=== PATIENT | male | born 1980 | race Caucasian/White ===

== ENCOUNTER 2016-01-17 08:10 | Outpatient (RCR) | payer MEDICAID ==
--- OUTSIDE RECORDS SUMMARY | 2016-01-14 15:39 | XMS REPORT ---
Author Joi Ramos [facility] eClinicalWorks Address Unknown Phone Unavailable Care Team Providers Care Care Coordinator Name Role Phone Joi Muñiz CP Unavailable Allergies No Known Allergies Problems Problem Type Condition Code Onset Dates Condition Status Assessment Nicotine dependence, cigarettes, uncomplicated F17.210 Active Problem Nicotine dependence, cigarettes, uncomplicated F17.210 Active Problem Asymptomatic human immunodeficiency virus (HIV) infection status Z21 Active Problem Mild intermittent asthma without complication J45.20 Active Assessment Mild intermittent asthma without complication J45.20 Active Assessment Influenza vaccine needed Z23 Active Problem Influenza vaccine needed Z23 Inactive Assessment Asymptomatic human immunodeficiency virus (HIV) infection status Z21 Active Medications No Known Medications Procedures Procedure Coding System Code Date BASIC METABOLIC PANEL CPT-4 47067 Dec 24, 2015 TB TEST, CELL IMMUN MEASURE CPT-4 35208 Dec 24, 2015 CHYLMD TRACH, DNA, AMP PROBE CPT-4 00572 Dec 24, 2015 PHENOTYPE, DNA HIV W/CLT ADD CPT-4 21411 Dec 24, 2015 Venipuncture CPT-4 27396 Dec 24, 2015 BLOOD SEROLOGY, QUALITATIVE CPT-4 73978 Dec 24, 2015 GENOTYPE, DNA, HIV REVERSE T CPT-4 30626 Dec 24, 2015 N.GONORRHOEAE, DNA, AMP PROB CPT-4 24802 Dec 24, 2015 Office Visit, Est Pt., Level 4 CPT-4 00369 Dec 24, 2015 GENOTYPE DNA HIV REVERSE T CPT-4 44252 Dec 24, 2015 HIV-1, DNA, QUANT CPT-4 69174 Dec 24, 2015 FLU VAC NO PRSV 4 CHRISTEN 3 YRS+ CPT-4 66505 Dec 24, 2015 T CELL, ABSOLUTE COUNT/RATIO CPT-4 89171 Dec 24, 2015 IMMUNIZATION ADMIN CPT-4 54845 Dec 24, 2015 PHENOTYPE, INFECT AGENT DRUG CPT-4 15140 Dec 24, 2015 Vital Signs Date/Time: Dec 24, 2015 Temperature 98.5 F Weight 126.5 lbs Height 65.5 in Respiratory Rate 18 /min Cardiac Monitoring Heart Rate 76 /min Blood Pressure Diastolic 60 mm Hg Blood Pressure Systolic 102 mm Hg BMI 20.73 Index Results No Known Results Immunizations Vaccine Administration Date Influenza Split 3 yrs > (QUAD) Dec 24, 2015 Summary Purpose eClinicalWorks Submission
[~2016-01-17] VITALS: Ht 154.9 cm; Wt 56.7 kg
[2016-01-17] VITALS (9 sets, daily range): BP systolic 98–113; BP diastolic 51–64
[~2016-01-17 08:10] MED LIST: NS IV 500 ML 500 ML ONE
[2016-01-17] MEDS ORDERED: [UNRECOGNIZED DRUG - OTHER] PO (08:24)
[2016-01-17] MEDS ORDERED: TRAM50TA2 PO (08:24)
[2016-01-17] MEDS ORDERED: FERR-84 PO (08:24)
[2016-01-17] MEDS ORDERED: ACETAMINOPHEN 325 MG TABLET/CAPLET (TYLENOL) ONE (13:00)
[2016-01-17] MEDS ORDERED: ACETAMINOPHEN 325 MG TABLET/CAPLET (TYLENOL) PO ONE (13:15)
== END 2016-04-13 | disposition home or self-care (01) ==
LOC: SDC 08:10
PROVIDERS: ATTEND Internal Medicine
DX: D64.9 Anemia, unspecified (principal)
CPT/HCPCS: 36430; 86850; 86900; 86901; 86920

== ENCOUNTER 2016-05-25 05:41 | Outpatient (CLI) | payer BC ==
[~2016-05-25] VITALS: Ht 154.9 cm; Wt 56.7 kg
[~2016-05-25 05:41] MED LIST changes: +FERR-84 PO; -NS IV 500 ML 500 ML ONE; +TRAM50TA2 PO; +[UNRECOGNIZED DRUG - OTHER] PO
[2016-05-25] MEDS ORDERED: ASCO500T6 PO (12:23)
[2016-05-25] MEDS ORDERED: SCOP1PAT TD (12:23)
[2016-05-25] MEDS ORDERED: VITA1CAP16 PO (12:23)
[2016-05-25] MEDS ORDERED: MONT10TA24 PO (12:23)
[2016-05-25] MEDS ORDERED: RT-ALBUINH IH (12:23)
[2016-05-25] MEDS ORDERED: HYDR-3816 PO (12:23)
[2016-05-25] MEDS ORDERED: CROF125T PO (12:23)
[2016-05-25] MEDS ORDERED: TRAM-42 PO (12:23)
[2016-05-25] MEDS ORDERED: FERR325T5 PO (12:23)
[2016-05-25] MEDS ORDERED: HYDR-3923 PO (12:23)
[2016-05-25] MEDS ORDERED: [UNRECOGNIZED DRUG - CODE] PO (12:23)
[2016-05-25] MEDS ORDERED: LORA10TA7 PO (12:23)
[2016-05-25] MEDS ORDERED: METR500T21 PO (12:23)
[2016-05-25] MEDS ORDERED: ELVI1TAB3 PO (12:23)
[2016-05-25] MEDS ORDERED: MUPI15CR11 TP (12:37)
== END 2016-05-25 12:48 ==
LOC: PREOP 05:41
PROVIDERS: ATTEND Surgery
DX: Z01.818 Encounter for other preprocedural examination (principal); R19.7 Diarrhea, unspecified

== ENCOUNTER 2016-05-29 10:14 | Day surgery (SDC) | payer BC, MEDICAID ==
[~2016-05-29] VITALS: Ht 154.9 cm; Wt 56.7 kg
[~2016-05-29 10:14] MED LIST changes: +ASCO500T6 PO; +CROF125T PO; +ELVI1TAB3 PO; +FERR325T5 PO; +HYDR-3816 PO; +HYDR-3923 PO; +LORA10TA7 PO; +METR500T21 PO; +MONT10TA24 PO; +MUPI15CR11 TP; +RT-ALBUINH IH; +SCOP1PAT TD; +TRAM-42 PO; +VITA1CAP16 PO; +[UNRECOGNIZED DRUG - CODE] PO
[2016-05-29] MEDS ORDERED: NS IV 500 ML 500 ML ONE (10:38)
[2016-05-29] MEDS ORDERED: NS IV 500 ML 500 ML IV PRN (10:50)
--- NOTE | 2016-05-29 10:51 | Conscious Sedation/ASA ---
Conscious Sedation Pre-Proced Time Reviewed: 10:50 ASA Class: 2 Airway Mallampati Classification: ([place] appropriate class) I. II. III, IV Lungs Heart ASA score ASA 1: a normal healthy patient ASA 2: a patient with a mild systemic disease (mid diabetes, controlled hypertension, obesity ASA 3: a patient with a severe systemic disease that limits activity (angina , COPD, prior Myocardial infarction) ASA 4: a patient with an incapacitating disease that is a constant threat to life (CHF, renal failure) ASA 5: a moribund patient not expected to survive 24 hrs. (ruptured aneurysm) ASA 6: a declared brain patient whose organs are being harvested. For emergent operations, add the letter E after the classification Grade 2 Sedation Plan: Discussed options with patient/fam Note The patient is an appropriate candidate to undergo the planned procedure, sedation, and anesthesia. The patient immediately re-assessed prior to indication. RODDY STEWART MD May 29, 2016 10:51 am
--- NOTE | 2016-05-29 10:51 | Progress Note-Pre Operative ---
Pre-Operative Progress Note H&P Reviewed The H&P was reviewed, patient examined and no changes noted. Date H&P Reviewed: May 29, 2016 Time H&P Reviewed: 10:50 Pre-Operative Diagnosis: chronic diarrhea RODDY STEWART MD May 29, 2016 10:51 am
[2016-05-29] MEDS ORDERED: FLUMAZENIL (ROMAZICON) 0.1 MG/ML 5 ML VIAL INJ PRN (11:00)
[2016-05-29] MEDS ORDERED: NALOXONE 0.4 MG/ML 1 ML (NARCAN) VIAL IVP PRN (11:00)
[2016-05-29] MEDS ORDERED: HURRICAINE EXT TUBE (BENZOCAINE) XX PRN (11:00)
[2016-05-29 11:08] VITALS: BP 130/101
[2016-05-29] MEDS ORDERED: MIDAZOLAM 2 MG/2 ML (VERSED) VIAL ONE ×7 (11:21→11:22)
[2016-05-29] MEDS ORDERED: fentaNYL INJECTION 100 MCG/2 ML AMP ONE ×2 (11:21)
[2016-05-29] MEDS ORDERED: HURRICAINE EXT TUBE (BENZOCAINE) ONE (11:22)
[2016-05-29] MEDS: fentaNYL INJECTION 100 MCG/2 ML AMP IVP PRN ×4 (11:31→11:44)
[2016-05-29] MEDS: MIDAZOLAM 2 MG/2 ML (VERSED) VIAL IVP PRN ×7 (11:33→11:45)
--- NOTE | 2016-05-29 12:16 | Progress Note-Post Operative ---
Post-Operative Progess Note Pre-Operative Diagnosis chronic diarrhea Post-Operative Diagnosis irregular and raised mucosa of the distal anal canal. Serpiginous ulcers along the rectum and the whole sigmoid colon with slough colon proximal to sigmoid normal Post-Op Procedure Note Date of Procedure: May 29, 2016 Name of Procedure: colonoscopy to cecum Biopsies of anal canal, rectal mucosa and sigmoid mucosa Anesthesia Type sedation Specimen(s) collected anal rectal and sigmoid mucosa RODDY STEWART MD May 29, 2016 12:16 pm
--- NOTE | 2016-05-29 12:17 | Discharge Inst-Simple/Standard ---
Discharge Inst-Standard Discharge Medications New, Converted or Re-Newed RX: Other Patient Instructions/Follow Up Plan of Care/Instructions/FU: follow-up with Dr. Krystyna Yo M.D. Activity as Tolerated: Yes Discharge Diet: No Restrictions RODDY STEWART MD May 29, 2016 12:17 pm
[2016-05-29 12:35] VITALS: BP 89/56
--- NOTE | 2016-05-29 12:38 | PROCEDURE REPORT ---
PROCEDURE PHYSICIAN: RODDY STEWART DATE OF PROCEDURE: 05/29/2016 PROCEDURE: 1. Colonoscopy to cecum. 2. Biopsy of lesions in the anal canal, rectum and the sigmoid colon. SURGEON: Sathish INDICATION FOR THE PROCEDURE: This gentleman, who is HIV positive, reported diarrhea over the last several months. Therefore, colonoscopy was felt to be reasonable. Informed consent was obtained after reviewing the procedure in detail. DESCRIPTION OF PROCEDURE: He was placed in left lateral decubitus position and his vital signs were monitored. Conscious sedation was achieved using Versed and fentanyl. Examination of the perianal area revealed a draining sinus over the right gluteal region and large anal skin tags. Digital examination showed a slightly lax sphincter. The colonoscope was then introduced into the rectum and advanced all the way up to the cecum. It was then withdrawn slowly and the mucosa examined in a systematic fashion. FINDINGS: 1. Irregular and raised mucosa of the distal anal canal. Photodocumentation and multiple biopsies were obtained. 2. Ulcerated mucosa of the rectum extending up to the proximal sigmoid colon in a serpiginous fashion, with slough along the base of the ulcers. There was an abrupt transition at the proximal sigmoid colon. Biopsies of the rectal mucosa and the sigmoid mucosa were obtained separately. The rest of the colon was normal. He tolerated the procedure well and was taken back to the nursing area in a stable condition. IMPRESSION: 1. HIV-positive patient with lesions in the rectum, anal canal and the sigmoid colon. 2. Biopsies pending. Job ID: [id number] Dictated Date: 05/29/2016 12:14:03 Glue Plant Operator Date: 05/29/2016 12:31:39 / oscar ALBERTO
[2016-05-29 13:05] VITALS: BP 110/68
[2016-05-29 14:00] VITALS: BP 110/68
--- OUTSIDE RECORDS SUMMARY | 2016-06-13 17:53 | XMS REPORT ---
Author Joi Ramos [facility] eClinicalWorks Address Unknown Phone Unavailable Care Team Providers Care Chuck Splitter Name Role Phone Joi Muñiz CP Unavailable [...] System Code Date BASIC METABOLIC PANEL CPT-4 72439 Dec 24, 2015 TB TEST, CELL IMMUN MEASURE CPT-4 42350 Dec 24, 2015 CHYLMD TRACH, DNA, AMP PROBE CPT-4 49943 Dec 24, 2015 PHENOTYPE, DNA HIV W/CLT ADD CPT-4 70486 Dec 24, 2015 Venipuncture CPT-4 19464 Dec 24, 2015 BLOOD SEROLOGY, QUALITATIVE CPT-4 57398 Dec 24, 2015 GENOTYPE, DNA, HIV REVERSE T CPT-4 52554 Dec 24, 2015 N.GONORRHOEAE, DNA, AMP PROB CPT-4 52151 Dec 24, 2015 Office Visit, Est Pt., Level 4 CPT-4 90807 Dec 24, 2015 GENOTYPE DNA HIV REVERSE T CPT-4 63302 Dec 24, 2015 HIV-1, DNA, QUANT CPT-4 34714 Dec 24, 2015 FLU VAC NO PRSV 4 CHRISTEN 3 YRS+ CPT-4 25416 Dec 24, 2015 T CELL, ABSOLUTE COUNT/RATIO CPT-4 57704 Dec 24, 2015 IMMUNIZATION ADMIN CPT-4 48815 Dec 24, 2015 PHENOTYPE, INFECT AGENT DRUG CPT-4 89101 Dec 24, 2015 Vital Signs Date/Time: Dec [...]
--- OUTSIDE RECORDS SUMMARY | 2016-06-13 17:54 | XMS REPORT ---
Author Joi Ramos Organization eClinicalWorks Address Unknown Phone Unavailable Care Team Providers Care Orange Grower Name Role Phone Joi Muñiz CP Unavailable Allergies No Known Allergies Problems Problem Type Condition Code Onset Dates Condition Status Assessment Acute right ankle pain M25.571 Active Problem Influenza vaccine needed Z23 Inactive Assessment Nausea and vomiting, intractability of vomiting not specified, unspecified vomiting type R11.2 Active Problem Acute right ankle pain M25.571 Active Problem Iron deficiency anemia due to chronic blood loss D50.0 Active Problem Nausea and vomiting, intractability of vomiting not specified, unspecified vomiting type R11.2 Active Problem Nicotine dependence, cigarettes, uncomplicated F17.210 Active Problem Asymptomatic human immunodeficiency virus (HIV) infection status Z21 Active Problem Generalized abdominal pain R10.84 Active Problem Mild intermittent asthma without complication J45.20 Active Medications Medication Code System Code Instructions Start Date End Date Status Dosage Scopolamine [facility] [address]-92 1 MG/3DAYS Transdermal apply 1 every 72 hr Jan 29, 2016 1 patch to skin as needed PredniSONE [facility] [address]-16 10 MG Orally Once a day Jan 29, 2016 taper - 8,7,6,5,4,3,2,1 Results No Known Results Summary Purpose eClinicalWorks Submission
--- OUTSIDE RECORDS SUMMARY | 2016-06-13 17:54 | XMS REPORT ---
Author Author Joi Muñiz [facility] Address [address], [place] [id number] Care Team Providers Care Dance Hall Host/Hostess Name Role Phone Joi Muñiz Unavailable PROBLEMS Type Condition ICD9-CM Code [id number] Code Onset Dates Condition Status SNOMED Code Problem Asymptomatic human immunodeficiency virus (HIV) infection status Z21 Active 59349919 Assessment Chronic diarrhea K52.9 Apr, Active 636641008 Problem Pain in joint involving multiple sites M25.50 Active 60001553 Problem Chronic diarrhea K52.9 Active 713935899 Problem Nicotine dependence, cigarettes, uncomplicated F17.210 well- controlled 61772724 Problem Mild intermittent asthma without complication J45.20 well- controlled 726056240 Problem Abscess L02.91 Active 702938599 Problem Iron deficiency anemia due to chronic blood loss D50.0 Active 97919629 ALLERGIES Unknown Allergies SOCIAL HISTORY No smoking Hx information available PLAN OF CARE VITAL SIGNS MEDICATIONS Medication Instructions Dosage Frequency Start Date End Date Duration Status Genvoya 150 mg/150 mg/200/mg/10 mg Oral Once a day 1 tablet 24h Jan, 30 days Active Bactroban 2 % Externally Three times a day 1 application to affected area 8h Apr, 30 days Active Zofran 8 MG Orally three a day 1 tablet Apr, 10 days Active Ferrous Sulfate 325 (65 Fe) MG Orally three a day 1 tablet Jan, 30 day(s) Active Percocet 7.5-325 MG Orally every 6 hrs 1 tablet as needed 6h Apr, 15 days Active Tramadol HCl 50 MG Orally every 4-6 hrs 1 tablet as needed Jan, 10 days Active Mytesi 125 MG Orally Twice a day 1 tablet 12h Apr, 30 day(s) Active Scopolamine 1 MG/3DAYS Transdermal apply 1 every 72 hr 1 patch to skin as needed Jan, 30 day(s) Active Bactrim DS 800-160 MG Orally Twice a day 1 tablet 12h 10 Apr, 2016 21 days Active Vitamin C 500 MG Orally three a day 1 tablet Jan, 30 day(s) Active Flagyl 500 MG Orally every 8 hrs 1 tablet 8h 24 Apr, 2016 21 days Active RESULTS No Results PROCEDURES No Known procedures IMMUNIZATIONS No Known Immunizations
--- OUTSIDE RECORDS SUMMARY | 2016-06-13 17:54 | XMS REPORT ---
Author Author CAM [place] [facility] eClinicalWorks Address Unknown Phone Unavailable Care Team Providers Care Etcher Hand Name Role Phone CAM [place] Unavailable Allergies No Known Allergies Problems Problem Type Condition Code Onset Dates Condition Status Problem Mild intermittent asthma without complication J45.20 Active Problem Bipolar disorder, unspecified 296.80 Active Problem HIV (human immunodeficiency virus infection) Z21 Active Problem Need for prophylactic vaccination and inoculation, Influenza V04.81 Active Assessment Mild intermittent asthma without complication J45.20 Active Problem Asymptomatic human immunodeficiency virus (HIV) infection status V08 Active Problem PPV23 (PNEUMOVAX) DX V03.82 Active Medications No Known Medications Results No Known Results Summary Purpose eClinicalWorks Submission
--- OUTSIDE RECORDS SUMMARY | 2016-06-13 17:54 | XMS REPORT ---
Author Joi Ramos Organization eClinicalWorks Address Unknown Phone Unavailable Care Team Providers Care Rubber Ball Finisher Name Role Phone Joi Muñiz CP Unavailable Allergies No Known Allergies Problems Problem Type Condition Code Onset Dates Condition Status Problem Influenza vaccine needed Z23 Inactive Problem Acute right ankle pain M25.571 Active [...] intermittent asthma without complication J45.20 Active Medications No Known Medications Results No Known Results Summary Purpose eClinicalWorks Submission
--- OUTSIDE RECORDS SUMMARY | 2016-06-13 17:54 | XMS REPORT ---
Author Joi Ramos Organization eClinicalWorks Address Unknown Phone Unavailable Care Team Providers Care Change Control Manager Name Role Phone Joi Muñiz CP Unavailable Allergies No Known Allergies Problems Problem Type Condition Code Onset Dates Condition Status Problem Generalized abdominal pain R10.84 Active Problem Mild intermittent asthma without complication J45.20 Active Problem Iron deficiency anemia due to chronic blood loss D50.0 Active Problem Influenza vaccine needed Z23 Inactive Problem Nicotine dependence, cigarettes, uncomplicated F17.210 Active Problem Asymptomatic human immunodeficiency virus (HIV) infection status Z21 Active Medications No Known Medications Results No Known Results Summary Purpose eClinicalWorks Submission
--- OUTSIDE RECORDS SUMMARY | 2016-06-13 17:54 | XMS REPORT | Continuity of Care Document ---
Author Author [facility] Address Unknown Phone Unavailable Allergies Medications Problems Date Dx Coded Attending Type Code Diagnosis Diagnosed By 08/08/2012 296.80 BIPOLAR DISORDER NOS 08/08/2012 V08 reported positive HIV test, no symptoms of infection 08/08/2012 LINDSEY WEISS MD 296.80 BIPOLAR DISORDER NOS 08/08/2012 LINDSEY WEISS MD8 reported positive HIV test, no symptoms of infection 08/08/2012 LINDSEY WEISS MD 296.80 BIPOLAR DISORDER NOS 08/08/2012 LINDSEY WEISS MD8 reported positive HIV test, no symptoms of infection 08/08/2012 LINDSEY WEISS MD 296.80 BIPOLAR DISORDER NOS 08/08/2012 LINDSEY WEISS MD8 reported positive HIV test, no symptoms of infection 01/01/2013 LINDSEY WEISS MD V03.82 PPV23 (PNEUMOVAX) DX 01/01/2013 LINDSEY WEISS MD V04.81 FLU SHOT 01/01/2013 LINDSEY WEISS MD V03.82 PPV23 (PNEUMOVAX) DX 01/01/2013 LINDSEY WEISS MD V04.81 FLU SHOT Procedures Code Description [place] [address] ROUTINE VENIPUNCTURE 08/08/2012 42190 CMP 08/09/2012 7980069 GFR CALC (RESULT ONLY) 08/09/2012 5381949 COMPLETE BLOOD COUNT NO DIFF (CBC Result) 08/09/2012 11649 DIFFERENTIAL WBC COUNT (CBC DIFF RESULT) 08/09/2012 28521 CBC W/MANUAL DIF (order) 08/10/2012 49232 T CELL ABSOLUTE COUNT/RATIO 08/10/2012 64662 HIV-1 QUANT&REVRSE TRNSCRPJ 08/10/2012 91999 ROUTINE VENIPUNCTURE 10/09/2012 TCELLCD8 T-HELPER COUNT/RATIO CD-4 CD-8 10/16/2012 56032 ROUTINE VENIPUNCTURE 01/01/2013 64215 CMP 01/01/2013 13482 TSH 01/01/2013 20656 CBC W/MANUAL DIF (order) 01/01/2013 53718 HIV-1 DNA QUANT 01/01/2013 TCELLCD8 T-HELPER COUNT/RATIO CD-4 CD-8 01/01/2013 [id number] [facility] HIV SPEC FOR RML MOLECULAR 05/21/2013 42976 CMP 05/21/2013 53218 TSH 05/21/2013 66228 CBC W/MANUAL DIF (order) 05/21/2013 74432 HIV-1 DNA QUANT 05/21/2013 TCELLCD8 T-HELPER COUNT/RATIO CD-4 CD-8 05/21/2013 Results Encounters ACCT No. Visit Date/Time Discharge Status Pt. Type Provider Facility Loc./Unit Complaint [id number] 05/21/2013 14:17:00 05/21/2013 23: 59:59 CLS Outpatient LINDSEY WEISS MD [id number] 01/01/2013 14:14:00 01/01/2013 23: 59:59 CLS Outpatient LINDSEY WEISS MD [id number] 10/09/2012 12:54:00 10/09/2012 23: 59:59 CLS Outpatient LINDSEY WEISS MD [id number] 08/08/2012 09:06:00 Document Registration
--- OUTSIDE RECORDS SUMMARY | 2016-06-13 17:54 | XMS REPORT ---
Author Author Joi Muñiz [facility] Address [address], [place] [address] Care Team Providers Care Closing Specialist Name Role Phone Joi Muñiz Unavailable PROBLEMS Type Condition ICD9-CM Code JUG24-OR Code Onset Dates Condition Status SNOMED Code Assessment Acute hemorrhoid K64.9 Feb, Active 89179798 Problem Asymptomatic human immunodeficiency virus (HIV) infection status Z21 Active 85808423 Problem Influenza vaccine needed Z23 Inactive 359973442 Problem Nausea and vomiting, intractability of vomiting not specified, unspecified vomiting type R11.2 Active 19732085 Problem Acute right ankle pain M25.571 Active 93502042753693 Problem Mild intermittent asthma without complication J45.20 well- controlled 790294193 Problem Nicotine dependence, cigarettes, uncomplicated F17.210 well- controlled 51986809 Problem Iron deficiency anemia due to chronic blood loss D50.0 Active 03238383 Problem Generalized abdominal pain R10.84 Active 026151540 ALLERGIES Unknown Allergies SOCIAL HISTORY No smoking Hx information available PLAN OF CARE VITAL SIGNS MEDICATIONS Medication Instructions Dosage Frequency Start Date End Date Duration Status Vitamin C 500 MG Orally three a day 1 tablet Jan, 30 day(s) Active Ferrous Sulfate 325 (65 Fe) MG Orally three a day 1 tablet Jan, 30 day(s) Active Genvoya 150 mg/150 mg/200/mg/10 mg Oral Once a day 1 tablet 24h Jan, 30 days Active Tramadol HCl 50 MG Orally every 4-6 hrs 1 tablet as needed Jan, 10 days Active Tramadol HCl 50 MG Orally every 6 hrs 2 tablet as needed 6h Feb, Feb, 7 days Active Anusol-HC 25 MG Rectal Twice a day 1 suppository 12h Feb, Mar, 10 days Active Scopolamine 1 MG/3DAYS Transdermal apply 1 every 72 hr 1 patch to skin as needed Jan, 30 day(s) Active PredniSONE 10 MG Orally Once a day taper - 8,7,6,5,4,3,2,1 24h Jan, 8 days Active RESULTS No Results PROCEDURES No Known procedures IMMUNIZATIONS No Known Immunizations
--- OUTSIDE RECORDS SUMMARY | 2016-06-13 17:54 | XMS REPORT ---
Author Author CAM [place] [facility] eClinicalWorks Address Unknown Phone Unavailable Care Team Providers Care Business Law Teacher Name Role Phone CAM [place] Unavailable Allergies No Known Allergies Problems Problem Type Condition Code Onset Dates Condition Status Problem Mild intermittent asthma without complication J45.20 Active Problem Bipolar disorder, unspecified 296.80 Active Problem HIV (human immunodeficiency virus infection) Z21 Active Problem Need for prophylactic vaccination and inoculation, Influenza V04.81 Active Problem Asymptomatic human immunodeficiency virus (HIV) infection status V08 Active Problem PPV23 (PNEUMOVAX) DX V03.82 Active Medications No Known Medications Results No Known Results Summary Purpose eClinicalWorks Submission
--- OUTSIDE RECORDS SUMMARY | 2016-06-13 17:54 | XMS REPORT ---
Author Author CAM [place] [facility] eClinicalWorks Address Unknown Phone Unavailable Care Team Providers Care Candle Wrapper Name Role Phone CAM [place] Unavailable Allergies [...]
--- OUTSIDE RECORDS SUMMARY | 2016-06-13 17:54 | XMS REPORT ---
Author Author BENEDICTO WEBER [facility] eClinicalWorks Address Unknown Phone Unavailable Care Team Providers Care Road Grader Operator Name Role Phone BENEDICTO WEBER Unavailable Allergies, Adverse Reactions, Alerts Substance Reaction Event Type Penicillin unknown Drug Allergy Problems Problem Type Condition Code Onset Dates Condition Status Assessment HIV (human immunodeficiency virus infection) Z21 Active Assessment Fatigue, unspecified type R53.83 Active Assessment Diarrhea, unspecified type R19.7 Active Assessment Hemoptysis R04.2 Active Problem Mild intermittent asthma without complication J45.20 Active Problem Bipolar disorder, unspecified 296.80 Active Problem HIV (human immunodeficiency virus infection) Z21 Active Problem Need for prophylactic vaccination and inoculation, Influenza V04.81 Active Assessment Cough R05 Active Problem Asymptomatic human immunodeficiency virus (HIV) infection status V08 Active Problem PPV23 (PNEUMOVAX) DX V03.82 Active Medications Medication Code System Code Instructions Start Date End Date Status Dosage Singulair [facility] [address]-68 10 mg Orally Once a day Nov 29, 2015 1 tablet in the evening Proventil HFA [facility] [address]-42 108 (90 Base) MCG/ACT Inhalation every 4 hrs Nov 29, 2015 2 puffs as needed Imodium A-D [facility] [address]-40 2 MG Orally then 1 after each loose stool for a total of 8 a day Nov 29, 2015 Dec 29, 2015 2 tablet with first lose stool Zithromax Z-Adán [facility] [address]-74 250 MG Orally Once a day Nov 29, 2015 Dec 04, 2015 2 tablets on the first day, then 1 tablet daily for 4 days Loratadine [facility] [address]-44 10 mg Orally Once a day in the AM Nov 29, 2015 Dec 29, 2015 1 tablet Procedures Procedure Coding System Code Date COMPLETE CBC W/AUTO DIFF WBC CPT-4 59259 Nov 29, 2015 COMPREHEN METABOLIC PANEL CPT-4 95463 Nov 29, 2015 CHEST X-RAY CPT-4 65233 Nov 29, 2015 VENIPUNCT, ROUTINE* CPT-4 70515 Nov 29, 2015 HIV-1 AG W/HIV-1 & HIV-2 AB CPT-4 88733 Nov 29, 2015 Office Visit, Est Pt., Level 3 CPT-4 25285 Nov 29, 2015 Vital Signs Date/Time: Nov 29, 2015 Cardiac Monitoring Heart Rate 88 bpm Weight 123 lbs Height 64 in BMI 21.11 Index Blood Pressure Diastolic 80 mmHg Blood Pressure Systolic 112 mmHg Results Name Result Date Reference Range Unit Abnormality Flag CMP ----Calcium, Serum 9.2 03459395 8.7-10.2 mg/dL ----Carbon Dioxide, Total 20 [id number] 18-29 mmol/L ----ALT (SGPT) 8 85273706 0-44 IU/L ----Creatinine, Serum 0.72 [id number] 0.76-1.27 mg/dL L ----AST (SGOT) 15 [id number] 0-40 IU/L ----eGFR If NonAfricn Am 119 [id number] >59 mL/min/1.73 ----Alkaline Phosphatase, S 66 [id number] 39-117 IU/L ----eGFR If Africn Am 138 [id number] >59 mL/min/1.73 ----Bilirubin, Total 0.2 48191388 0.0-1.2 mg/dL ----BUN/Creatinine Ratio 17 [id number] 8-19 ----A/G Ratio 1.0 [id number] 1.1-2.5 L ----Sodium, Serum 136 [id number] 134-144 mmol/L ----Globulin, Total 3.9 34268053 1.5-4.5 g/dL ----Potassium, Serum 4.0 69368049 3.5-5.2 mmol/L ----Glucose, Serum 85 89417786 65-99 mg/dL ----Chloride, Serum 99 [id number] 97-108 mmol/L ----Albumin, Serum 3.8 74273197 3.5-5.5 g/dL ----BUN 12 [id number] 6-20 mg/dL ----Protein, Total, Serum 7.7 95172844 6.0-8.5 g/dL ROUTINE VENIPUNCTURE HIV ANTIGEN/ANTIBODY ----HIV 2 Ab Negative [id number] Negative ----Request Problem [facility] [id number] ----HIV 1 Ab Positive [id number] Negative A Summary Purpose eClinicalWorks Submission
--- OUTSIDE RECORDS SUMMARY | 2016-06-13 17:54 | XMS REPORT ---
Author Joi Ramos Organization eClinicalWorks Address Unknown Phone Unavailable Care Team Providers Care Surface Water Technician Name Role Phone Joi Muñiz CP Unavailable Allergies No Known Allergies Problems Problem Type Condition Code Onset Dates Condition Status Assessment Iron deficiency anemia due to chronic blood loss D50.0 Active Assessment Generalized abdominal pain R10.84 Active Problem Generalized abdominal pain R10.84 Active Problem Mild intermittent asthma without complication J45.20 Active Problem Iron deficiency anemia due to chronic blood loss D50.0 Active Problem Influenza vaccine needed Z23 Inactive Assessment Asymptomatic human immunodeficiency virus (HIV) infection status Z21 Active Problem Nicotine dependence, cigarettes, uncomplicated F17.210 Active Problem Asymptomatic human immunodeficiency virus (HIV) infection status Z21 Active Medications Medication Code System Code Instructions Start Date End Date Status Dosage Ferrous Sulfate [facility] [address]-40 325 (65 Fe) MG Orally three a day Jan 1 tablet Vitamin C [facility] [address]-90 500 MG Orally three a day Jan 12, 2016 1 tablet Genvoya [facility] [address]-17 150 mg/150 mg/200/mg/10 mg Oral Once a day Jan 1 tablet Tramadol HCl [facility] [address]-40 50 MG Orally every 4-6 hrs Jan 12, 2016 1 tablet as needed Results No Known Results Summary Purpose eClinicalWorks Submission
--- OUTSIDE RECORDS SUMMARY | 2016-06-13 17:54 | XMS REPORT ---
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 Phone Joi Muñiz Unavailable PROBLEMS Type Condition ICD9-CM Code [id number] Code Onset Dates Condition Status SNOMED Code Assessment Pain in joint involving multiple sites M25.50 28 Apr, 2016 Active 02438356 Problem Mild intermittent asthma without complication J45.20 well- controlled 037044089 Problem Asymptomatic human immunodeficiency virus (HIV) infection status Z21 Active 81789237 Problem Anxiety F41.9 Active 73118834 Problem Pain in joint involving multiple sites M25.50 Active 09157764 Problem Iron deficiency anemia due to chronic blood loss D50.0 Active 39990377 Problem Nicotine dependence, cigarettes, uncomplicated F17.210 well- controlled 67224751 Problem Chronic diarrhea K52.9 Active 974815346 Problem Abscess L02.91 Active 739085138 ALLERGIES Unknown Allergies SOCIAL HISTORY No smoking Hx information available PLAN OF CARE VITAL SIGNS MEDICATIONS Medication Instructions Dosage Frequency Start Date End Date Duration Status HydrOXYzine HCl 25 MG Orally three times a day 1 tablet as needed 8h May 10 days Active RESULTS No Results PROCEDURES No Known procedures IMMUNIZATIONS No Known Immunizations
--- OUTSIDE RECORDS SUMMARY | 2016-06-13 17:54 | XMS REPORT ---
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 Phone Joi Muñiz Unavailable PROBLEMS Type Condition ICD9-CM Code XSU25-LE Code Onset Dates Condition Status SNOMED Code Problem Chronic diarrhea K52.9 Active 940523207 Problem Abscess L02.91 Active 871692055 Problem Mild intermittent asthma without complication J45.20 well- controlled 599914780 Problem Asymptomatic human immunodeficiency virus (HIV) infection status Z21 Active 67538729 Problem Iron deficiency anemia due to chronic blood loss D50.0 Active 09101105 Problem Nicotine dependence, cigarettes, uncomplicated F17.210 well- controlled 92338240 ALLERGIES Unknown Allergies SOCIAL HISTORY No smoking Hx information available PLAN OF CARE VITAL SIGNS MEDICATIONS Unknown Medications RESULTS No Results PROCEDURES No Known procedures IMMUNIZATIONS No Known Immunizations
--- OUTSIDE RECORDS SUMMARY | 2016-06-13 17:54 | XMS REPORT ---
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 Phone [facility] [place] [facility] Unavailable Allergies, Adverse Reactions, Alerts Substance Reaction Event Type Penicillin unknown Drug Allergy Problems Problem Type Condition Code Onset Dates Condition Status Assessment Mild intermittent asthma without complication J45.20 Active Problem Mild intermittent asthma without complication J45.20 Active Problem Bipolar disorder, unspecified 296.80 Active Problem HIV (human immunodeficiency virus infection) Z21 Active Problem Need for prophylactic vaccination and inoculation, Influenza V04.81 Active Assessment HIV (human immunodeficiency virus infection) Z21 Active Problem Asymptomatic human immunodeficiency virus (HIV) infection status V08 Active Problem PPV23 (PNEUMOVAX) DX V03.82 Active Medications Medication Code System Code Instructions Start Date End Date Status Dosage Singulair [facility] [address]-21 10 mg Orally Once a day Nov 29, 2015 1 tablet in the evening ProAir HFA [facility] [address]-16 108 (90 Base) MCG/ACT Inhalation every 4 hrs Dec 10, 2015 2 puffs as needed Loratadine [facility] [address]-26 10 mg Orally Once a day in the AM Nov 29, 2015 Dec 29, [address] [facility] [address]-14 108 (90 Base) MCG/ACT Inhalation every 4 hrs Nov 29, 2015 2 puffs as needed Procedures Procedure Coding System Code Date Office Visit, Est Pt., Level 2 CPT-4 27349 Dec 10, 2015 Vital Signs Date/Time: Dec 10, 2015 Cardiac Monitoring Heart Rate 78 bpm Weight 123 lbs Height 64 in BMI 21.11 Index Blood Pressure Diastolic 78 mmHg Blood Pressure Systolic 116 mmHg Results No Known Results Summary Purpose eClinicalWorks Submission
== END 2016-05-29 14:00 | disposition home or self-care (01) ==
LOC: DELPENDDIS → ENDO 10:14
PROVIDERS: ATTEND Surgery
DX: K52.89 Other specified noninfective gastroenteritis and colitis (principal); Z21 Asymptomatic human immunodeficiency virus [HIV] infection status
CPT/HCPCS: 88305

== ENCOUNTER 2018-03-09 11:46 | Emergency (ER) | payer BC, MEDICAID | END 2018-03-09 13:25 | disposition home or self-care (01) | LOC: ER 11:46 ==

== ENCOUNTER 2019-07-04 11:42 | Emergency (ER) | payer BC, MEDICAID, OTHER ==
[~2019-07-04 11:42] MED LIST changes: +ASCO500T17 PO; -ASCO500T6 PO; +HYDR-34 PO; -HYDR-3816 PO; +METR-145 PO; -METR500T21 PO; -MONT10TA24 PO; +MONT10TA26 PO; -SCOP1PAT TD; +SCOP1PAT11 TD; -TRAM50TA2 PO; +TRM50T PO; +[UNRECOGNIZED DRUG - CODE] PO; -[UNRECOGNIZED DRUG - CODE] PO
--- OUTSIDE RECORDS SUMMARY | 2019-07-04 11:53 | XMS REPORT ---
Author Author [employer]. Organization [employer] Address [address] [address] Care Team Providers Care Relaster Name Role Phone Mary Kay, Joi Unavailable Mary Kay, Joi Unavailable Unavailable Mary Kay, Joi Unavailable Mary Kay, Joi Unavailable Mary Kay, Joi Unavailable Mary Kay, Joi Unavailable [place] Unavailable Unavailable [place] Unavailable Mary Kay, Joi Unavailable Mary Kay, Joi Unavailable Mary Kay, Joi Unavailable Mary Kay, Joi Unavailable Mary Kay, Joi Unavailable Mary Kay, Joi Unavailable Mary Kay, Joi Unavailable Mary Kay, Joi Unavailable Mary Kay, Joi Unavailable Mary Kay, Joi Unavailable Alexandria, Araseli Unavailable Alexandria, Araseli Unavailable Bryan, Araseli Unavailable Bryan, Araseli Unavailable Bryan, Araseli Unavailable Bryan, Araseli Unavailable Bryan, Araseli Unavailable Alexandria, Araseli Unavailable Bryan, Araseli Unavailable Alexandria, Araseli Unavailable Bryan, Araseli Unavailable Alexandria, Araseli Unavailable Bryan, Araseli Unavailable Alexandria, Araseli Unavailable Bryan, Araseli Unavailable CAM [place] Unavailable Bryan, Araseli Unavailable Bryan, Araseli Unavailable Alexandria, Araseli Unavailable Bryan, Araseli Unavailable Rodriguez, Shana Unavailable Bryan, Araseli Unavailable Alexandria, Araseli Unavailable Bryan, Araseli Unavailable Bryan, Araseil Unavailable Bryan, Araseli Unavailable Alexandria, Araseli Unavailable Bryan, Araseli Unavailable Bryan, Araseli Unavailable Bryan, Araseli Unavailable Alexandria, Araseli Unavailable Alexandria, Araseli Unavailable Alexandria, Araseli Unavailable Alexandria, Araseli Unavailable CAM [place] Unavailable Li, Shana Unavailable Li, Shana Unavailable Li, Shana Unavailable Li, Shana Unavailable Li, Shana Unavailable RODDY STEWART MD Unavailable Unavailable Li, Shana Unavailable Li, Shana Unavailable Li, Shana Unavailable Li, Shana Unavailable Li, Shana Unavailable Li, Shana Unavailable Li, Shana Unavailable CAM [place] Unavailable [place] Unavailable [place] Unavailable MITCHELL, FRANKI Unavailable Li, Shana Unavailable [place] Unavailable [place] Unavailable MITCHELL, FRANKI Unavailable MITCHELL, FRANKI Unavailable Li, Shana Unavailable ANDREYJUNIOR Eliana Unavailable Li, Shana Unavailable Migration, Doctor Unavailable Unavailable Bryan, Araseli Unavailable Li, Shana Unavailable Li, Shana Unavailable [place] MD Unavailable Unavailable Li, Shana Unavailable Alexandria, Araseli Unavailable Bryan, Araseli Unavailable Bryan, Araseli Unavailable Migration, Doctor Unavailable Unavailable Bryan, Araseli Unavailable Bryan, Araseli Unavailable Alexandria, Araseli Unavailable Alexandria, Araseli Unavailable Migration, Doctor Unavailable Unavailable LUIS ANTONIO HEIN Unavailable Alexandria, Araseli Unavailable Li, Shana Unavailable Alexandria, Araseli Unavailable Li, Shana Unavailable Li, Shana Unavailable Li, Shana Unavailable Shana Rodriguez Unavailable Unavailable None, None Unavailable Unavailable Li, Shana Unavailable Alexandria, Araseli Unavailable Veronika Brunner Unavailable Li, Shana Unavailable Li, Shana Unavailable Bryan, Araseli Unavailable Li, Shana Unavailable Li, Shana Unavailable Li, Shana Unavailable Veronika Brunner Unavailable Li, Shana Unavailable Bryan, Araseli Unavailable Alexandria, Araseli Unavailable Li, Shana Unavailable Li, Shana Unavailable Unavailable Unavailable Bryan, Araseli Unavailable Li, Shana Unavailable Bryan, Araseli Unavailable Li, Shana Unavailable Li, Shana Unavailable Li, Shana Unavailable Bryan, Araseli Unavailable Li, Shana Unavailable Guillermo, Shana Unavailable LINDSEY ALVAREZ Unavailable LINDSEY ALVAREZ Unavailable Li, Shana Unavailable Guillermo, Shana Unavailable Guillermo, Shana Unavailable LINDSEY ALVAREZ Unavailable Guillermo, Shana Unavailable Guillermo, Shana Unavailable Guillermo, Shana Unavailable Allergies Normalized Allergy Reported Date of Reaction(s) Care Provider Facility Allergy Type classification allergen Allergy Onset Drug Allergy Benzodiazepine ALPRAZolam 05-25-2016 - abd CAM agrawal Not Available (18 sources.) s Translations: MD Soha (00 000) Translations: [ Alprazolam] [ Allergy to Substance] DA (4 Unclassified No Known Drug 01-17-2016 - no information [place] Not Available sources.) Allergies MD (89319) Medications Current Medications Medication Ingredient Drug Dose Dates Status Sig Sig Care Class(es) (Normalized) (Original) Provid er no Biktarvy 50 no 1 mg 04-19-19 Active take 1 Biktarvy 50 no information MG/200 information 19 tablet by MG/200 MG/2 5 name (3 MG/25 MG mouth once MG Orally (no sources.) daily Once daily 1 phone) tablet 24h Apr, 30 days Active 1 mg 04-19-2018 Active take 1 Biktarvy no name tablet 50 (no by MG/200 phone) mouth MG/25 MG once Orally daily Once daily 1 tablet 24h Apr, 30 days Active efavirenz efavirenz / Human 05-14-19 Active take 1 Atripla no 600 mg / emtricitabi Immunodefic 14 tablet by 600-200-300 name emtricitabi ne / iency Virus mouth once mg take 1 (no ne 200 mg / tenofovir Nucleoside daily tablet by phone) tenofovir disoproxil Analog oral route disoproxil Translation Reverse once daily fumarate s: [ Transcripta on an empty 300 mg oral Atripla se stomach 11 tablet (1 600-200-300 Inhibitor, May, 2013 source.) mg] Human Active Immunodefic iency Virus 1 Non-Nucleos roslyn Analog Reverse Transcripta se Inhibitor Completed/Discontinued Medications Medication Ingredient Drug Dose Dates Status Sig Sig Care Class(es) (Normalized) (Original) Provid er acetaminoph Acetaminoph Opioid Complete take 1 Acetaminophe (no en 325 mg / en / Agonist d tablet by n/Hydrocodon phone) HYDROcodone HYDROcodone mouth every e Bitart bitartrate six hours as (Lortab 7.5 7.5 mg oral needed for Mg Tablet) 1 tablet (1 pain, then Each Tablet source.) take 1 1 Each ORAL tablet by Every 6 mouth as Hours as needed for needed for pain Pain no Albuterol no 1 Complete take 1 Albuterol (no information Sulfate information puff(s d puff(s) by Sulfate phone) (1 source.) (Proventil ) inhalation (Proventil Hfa) 6.7 Gm every six Hfa) 6.7 Gm Hfa.aer.ad hours as Hfa.aer.ad 2 needed Puff RESPIRATORY (INHALATION) Every 6 Hours as needed for Shortness Of Breath ascorbic Ascorbic Vitamin C 500 mg Complete take 1 Ascorbic (no acid 500 mg Acid d tablet by Acid phone) oral tablet mouth three (Vitamin C) (1 source.) times daily 500 Mg Tablet 500 Mg ORAL Three Times A Day no Genavue , 1 no 01-21-20 Complete take 1 Genavue , 1 D avid information Tab Oral information 16 - d tablet by Tab Javierleón Fitzgerald (1 source.) 05-26-19 mouth once Daily Huerte 17 daily 01/21/16 r (no Discontinued phone) glucosamine Glucosamine no 1000 Complete take 1 Glucosamine (no 1000 mg information mg d tablet by Sulfate 2KCL p prince) oral tablet mouth twice (Glucosamine (1 source.) daily, then Sulfate) take 1 1,000 Mg tablet by Tablet 1,000 mouth Mg ORAL Twice A Day hydrALAZINE hydrALAZINE Arteriolar 25 mg Complete take 1 Hydrala zine (no hydrochlori Vasodilator d tablet by Hcl 25 Mg phone) de 25 mg mouth three Tablet 25 Mg oral tablet times daily ORAL Three (1 source.) as needed Times A Day for anxiety as needed for Anxiety metroNIDAZO metroNIDAZO Nitroimidaz 500 mg Complete take 1 Metro nidazol (no LE 500 mg LE ole d tablet by e 500 Mg phone) oral tablet Antimicrobi mouth three Tablet 500 (1 source.) al times daily Mg ORAL Three Times A Day no Vitamin B no Complete take 1 Vitamin B (no information Complex & information d capsule by Complex & phone) (1 source.) Vit C No.3 mouth twice Vit C No.3 (B Complex daily, then (B Complex With take 1 With Vitamin Vitamin C) capsule by C) 1 Each 1 Each mouth Capsule 1 Capsule Each ORAL Twice A Day Problems Active Problems Problem Normalized Date of Normalized Normalized Provider Fac ility Classification Problem(s) Problem Problem Problem Sta tus Onset/Resoluti Duration on Allergic Allergy status Episodic Active SHILPA BERNOT Not Available reactions (6 to penicillin (61756) sources.) Translations: [ ALLERGY STATUS TO OTH DRUG/MEDS/BIOL SUB] Deficiency and Anemia, Episodic Active [place] Not Available other anemia unspecified , (97071) (10 sources.) Unclassified Anorexia Episodic Active Shana cohen of (20 sources.) Translations: [id number] [place] [employer] [ - Loss of of Medicine appetite MPA (98189) R63.0, - Loss of appetite R63.0] Chronic Chronic Chronic Active SHILPA BERNOT Not Avail able obstructive obstructive (38605) pulmonary pulmonary disease and disease, bronchiectasis unspecified (3 sources.) Unclassified Chronic pain Chronic Active Shana Zunigaales Un iversity of (20 sources.) Translations: [id number] [place] [address] [ Other of Medicine chronic pain, [facility] (07649) Other chronic pain] Residual Chronic pain [facility] codes; Translations: [id number] [place] [address] unclassified [ Other of Medicine (20 sources.) chronic pain] [facility] (10078) 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 [id number] [place] [address] al disorders Translations: of Medicine (20 sources.) [ - 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, - Functional diarrhea K59.1] Other lower Hiccough Episodic Active [facility] ity of respiratory Translations: [id number] [place] [address] disease (20 [ - Hiccups of Medicine sources.) R06.6, - MPA (93140) Intractable hiccups R06.6, - Intractable hiccups R06.6, - Hiccups R06.6] Other senior living Episodic Active SHILPA BERNMARISA Not Avai lable aftercare (3 (current) use (29840) sources.) of inhaled steroids Gastrointestin Melena Episodic Active [facility] y al hemorrhage Translations: [facility] (14 sources.) [ - Melena of [facility] K92.1] [place] (79265) Substance-rela Nicotine Chronic Active [facility] ersity of stephanie disorders dependence, [id number] [place] [address] (20 sources.) cigarettes, of Medicine uncomplicated [facility] (04063) Translations: [ - Nicotine dependence, cigarettes, uncomplicated F17.210, - Nicotine dependence, cigarettes, uncomplicated F17.210] Other Pain in left Episodic Active SHILPA BERNOT Not A vailable non-traumatic knee (74052) joint disorders (3 sources.) Other Pain in right Episodic Active [facility] ersity of non-traumatic ankle and [id number] [place] [address] joint joints of of Medicine disorders (20 right foot MPA (55351) sources.) Translations: [ - Acute right ankle pain M25.571, - Acute right ankle pain M25.571] Other Pain in [facility]odic [facility] non-traumatic unspecified [id number] [place] [address] joint joint of Medicine disorders (20 Translations: [facility] (86025) sources.) [ - Pain in joint involving multiple sites M25.50, - Pain in joint involving multiple sites M25.50] Other Personal Episodic Active SHILPASALENA DESOUZA Not Avail able gastrointestin history of (13771) al disorders other diseases (3 sources.) of the digestive system Sprains and Sprain of Episodic Active SHILPA JINOT Not Av ailable strains (3 unspecified (88596) sources.) site of left knee, initial encounter Past or Other Problems Problem Normalized Date of Normalized Normalized Provider Fac ility Classification Problem(s) Problem Problem Problem Sta tus Onset/Resoluti Duration on External cause Fall (on) no information no information SHILPA B ERNOT Not Available codes: Fall (3 (from) (01137) sources.) unspecified stairs and steps, initial encounter Noninfectious Other no information no information RODDY RIVERA Not Available gastroenteriti MD martita ([id number]) s (7 sources.) noninfective gastroenteriti s and colitis External cause Overexertion no information no information TRAVI S BERNOT Not Available codes: from prolonged (58416) Natural/enviro static or nment (3 awkward sources.) postures, initial encounter Procedures Procedure Normalized Procedure Procedure Result Performer Facility Date 05-21-2013 Assay of thyroid no information no name (no phone) [facility] stimulating hormone [facility] ([id number]) 04-11-2019 Billed by outside no information no name (no phone) [facility] (01819) 05-21-2013 Blood count manual no information no name (no phone ) [facility] cell count each [facility] (88514) 05-21-2013 Blood count smear no information no name (no phone) [facility] mcrscp w/mnl difrntl [facility] wbc count [place] (58740) 05-17-2018 Blood occult fecal hgb no information no name (no p prince) [facility] deter ia qual feces [facility] 1-3 [place] (13872) 04-11-2019 Comprehensive no information no name (no phone) [facility] (48176) 01-10-2019 Comprehensive no information no name (no phone) [facility] (87976) 09-13-2018 Comprehensive no information no name (no phone) Un [facility] metabolic [facility] (54142) 02-08-2018 Comprehensive no information no name (no phone) Un [facility] metabolic panel [facility] (05526) 11-30-2017 Comprehensive no information no name (no phone) Un [facility] metabolic [facility] (90467) 09-21-2017 Comprehensive no information no name (no phone) Un [facility] metabolic [facility] (66461) 05-21-2013 Comprehensive no information no name (no phone) [facility] (77931) 09-13-2018 Hemoglobin no information no name (no phone) [facility] glycosylated a1c [facility] (16492) 04-11-2019 Iadna hiv-1 quant & no information no name (no phon e) [facility] 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 [facility] (74310) 01-10-2019 Iadna hiv-1 quant & no information no name (no phon e) [facility] 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 [facility] (35224) 09-13-2018 Iadna hiv-1 quant & no information no name (no phon e) [facility] 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 [facility] (94283) 02-08-2018 Iadna hiv-1 quant & no information no name (no phon e) [facility] 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 [facility] (64276) 11-30-2017 Iadna hiv-1 quant & no information no name (no phon e) [facility] 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 [facility] (61914) 09-21-2017 Iadna hiv-1 quant & no information no name (no phon e) [facility] 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 [facility] (85934) 05-21-2013 Iadna hiv-1 quant & no information no name (no phon e) [facility] 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 [facility] (09589) 04-11-2019 Syphilis test no information no name (no phone) Un [facility] non-treponemal [facility] MPA antibody qual (35964) 01-10-2019 Syphilis test no information no name (no phone) [facility] non-treponemal [facility] MPA antibody qual (00307) 09-13-2018 Syphilis test no information no name (no phone) [facility] non-treponemal [facility] MPA antibody qual (82042) 02-08-2018 Syphilis test no information no name (no phone) [facility] non-treponemal [facility] MPA antibody qual (91040) 09-21-2017 Syphilis test no information no name (no phone) [facility] MPA antibody qual (66340) 04-11-2019 T cells absolute no information no name (no phone) [facility] cd4&cd8 count ratio [facility] (49733) 01-10-2019 T cells absolute no information no name (no phone) [facility] cd4&cd8 count ratio [facility] (97978) 09-13-2018 T cells absolute no information no name (no phone) [facility] cd4&cd8 count ratio [facility] MPA (63927) 02-08-2018 T cells absolute no information no name (no phone) [facility] cd4&cd8 count ratio [facility] MPA (16618) 11-30-2017 T cells absolute no information no name (no phone) [facility] cd4&cd8 count ratio [facility] MPA (17971) 09-21-2017 T cells absolute no information no name (no phone) [facility] cd4&cd8 count ratio [facility] (68833) 03-09-2018 X-ray of left knee no information SHILPA DESOUZA As cension [facility] (68294) Immunizations Normalized Immunization Date Notes Care Provider Facili ty Immunization influenza, 01-10-2019 - no information Araseli Adams [facility] injectable, 01-10-2019 [id number] [facility] [employer] ine quadrivalent, [facility] (60536) preservative free influenza, 11-30-2017 - no information Shana Li [facility] injectable, 11-30-2017 [id number] [facility] [employer] in[facility] quadrivalent, [facility] (60748) preservative free vaccine no information JUNIOR BALDERAS [address] Translations: [ [facility] vaccine] (49817) no information 01-10-2019 no information Araseli Adams [facility] [id number] [facility] (58123) no information 11-30-2017 no information Shana Li [facility] [id number] [place] [address] (20310) Results Test Name Value Interpretation Reference Range Date Time Fa cility (Normalized) (Normalized) (Medline Reference) opioid/opiate agreement (annual) on null NEGATED: no information (no code) [facility] of Laboratory Medicine MPA studies (set) (18290) No panel information on 2019-04-11 Albumin 4.7 g/dL (no code) 3.4 - 5.4 g/dL University [Mass/Vol] [facility] (37481) Albumin/Globulin 2.0 {ratio} (no code) 1 - 2.5 {ratio} Univ ersity of [Mass ratio] [facility] (70816) ALP [Catalytic 55 U/L (no code) 44 - 147 U/L Universit y of activity/Vol] [facility] ICT (16113) ALT [Catalytic 14 U/L (no code) 4 - 40 U/L University of activity/Vol] [facility] ICT (27133) AST [Catalytic 20 U/L (no code) 10 - 34 U/L University of activity/Vol] [facility] ICT (07353) Basophils (Bld) 0.1 10*3/uL (no code) 0 - 0.3 10*3/uL Unive rsity of [#/Vol] [facility] (36749) Basophils/100 1 % (no code) 0.5 - 1 % University o f WBC (Bld) [facility] (07594) Bilirubin 0.4 mg/dL (no code) 0.1 - 1.2 mg/dL Universit y of [Mass/Vol] [facility] ICT (23082) Calcium 9.5 mg/dL (no code) 8.5 - 10.2 mg/dL Universi ty of [Mass/Vol] [facility] ICT (68403) CD3+CD4+ (T4 326 (L) University of helper) cells [facility] of (Bld) [#/Vol] Medicine ICT (87417) CD3+CD4+ (T4 20.4 % (L) 35 - 66 % University of helper) [place] [employer] of cells/100 cells Medicine ICT (Bld) (10317) CD3+CD4+ (T4 0.48 % (L) 0.9 - 3.7 % University o f helper) [facility] of cells/CD3+CD8+ Medicine ICT (T8 suppressor (82191) cells) cells (Bld) [# ratio] CD3+CD8+ (T8 674 /uL (no code) 190 - 832 /uL University of suppressor [place] [employer] of cells) cells Medicine ICT (Bld) [#/Vol] (95368) CD3+CD8+ (T8 42.1 % (H) 9 - 37 % University of suppressor [place] [employer] of cells) cells/100 Medicine ICT cells (Bld) (61282) Chloride 102 mmol/L (no code) 95 - 106 mmol/L Universit y of [Moles/Vol] [facility] ICT (43198) CO2 [Moles/Vol] 25 mmol/L (no code) 23 - 29 mmol/L Univer [facility] of [facility] ICT (33097) Creatinine 1.03 mg/dL (no code) University of [Mass/Vol] [facility] ICT (65093) Eosinophils 0.2 10*3/uL (no code) 0.05 - 0.5 University of (Bld) [#/Vol] 10*3/uL [facility] ICT (08814) Eosinophils/100 4 % (no code) 1 - 4 % [facility] WBC (Bld) [facility] ICT (68223) Erythrocyte 14.9 % (no code) 11.6 - 14.6 % University of distribution [facility] of width (RBC) Medicine ICT [Ratio] (86871) Genetic analysis . (no code) University of narrative report [facility] of [employer] Medicine ICT (Bld/Tiss) (48657) GFR/1.73 sq M 105 (no code) University of predicted among [facility] of blacks CKD-EPI Medicine ICT (S/P/Bld) [Vol (15248) rate/Area] GFR/1.73 sq M 90 (no code) [facility] among [facility] non-blacks [facility] ICT CKD-EPI (35181) (S/P/Bld) [Vol rate/Area] Globulin (S) 2.3 g/dL (no code) 2 - 3.5 g/dL [facility] [Mass/Vol] [facility] ICT (67078) Glucose 77 mg/dL (no code) 60 - 125 mg/dL University [Mass/Vol] [facility] ICT (83936) Hematocrit (Bld) 38.8 % (no code) 36.1 - 50.3 % Univer sity of [Volume [facility] fraction] [facility] ICT (71243) Hemoglobin (Bld) 12.6 g/dL (L) 12.1 - 17.2 g/dL Uni versity of [Mass/Vol] [facility] ICT (90503) HIV 1 RNA 40 (no code) University of CK+probe [facility] [#/Vol] Medicine ICT (98755) HIV 1 RNA 1.602 (no code) University CK+probe [Log [facility] #/Vol] Medicine ICT (12222) HIV GenoSure TNP (no code) University of PRIme(SM) [facility] ICT (04199) Immature Cells INSIDE SALES DIRECTOR (no code) [facility] ICT (59668) Immature 0.0 10*3/uL (no code) 0 - 0.2 10*3/uL Universit y of granulocytes [facility] (Bld) [#/Vol] Medicine ICT (78798) Immature 0 % (no code) 0 - 0.5 % University of granulocytes/100 [place] [employer] WBC (Bld) Medicine ICT (81277) Lymphocytes 1.6 10*3/uL (no code) 0.9 - 2.9 University of (Bld) [#/Vol] 10*3/uL [facility] ICT (83757) Lymphocytes/100 25 % (no code) 20 - 40 % University of WBC (Bld) [facility] ICT (96286) MCH (RBC) 28.8 pg (no code) 27 - 31 pg University [Entitic mass] [facility] (42914) MCHC (RBC) 32.5 g/dL (no code) 32 - 36 g/dL University o f [Mass/Vol] [facility] (35798) MCV (RBC) 89 fL (no code) 80 - 100 fL University of [Entitic vol] [facility] (09922) Monocytes (Bld) 0.5 10*3/uL (no code) 0.3 - 0.9 University of [#/Vol] 10*3/uL [facility] (63371) Monocytes/100 8 % (no code) 2 - 8 % University o f WBC (Bld) [facility] (99210) Morphology León INSIDE SALES DIRECTOR (no code) [facility] (Bld) [Interp] [facility] (25181) Neutrophils 4.0 10*3/uL (no code) 1.7 - 7 10*3/uL Universit y of (Bld) [#/Vol] [facility] ICT (99137) Neutrophils/100 62 % (no code) 40 - 60 % University of WBC (Bld) [facility] (69735) Nucleated INSIDE SALES DIRECTOR (no code) University of RBC/100 WBC [facility] (Bld) [Ratio] Medicine [facility] (78669) Platelets (Bld) 262 10*3/uL (no code) 150 - 450 University of [#/Vol] 10*3/uL [facility] (18309) Potassium 4.7 mmol/L (no code) 3.7 - 5.2 mmol/L Universi ty of [Moles/Vol] [facility] ICT (23136) Protein 7.0 g/dL (no code) 6.4 - 8.3 g/dL [facility] [Mass/Vol] [facility] (84862) RBC (Bld) 4.37 10*6/uL (no code) 4.2 - 6.1 University of [#/Vol] 10*6/uL [facility] (43700) Reagin Ab RPR 1 {titer} (H) University of (S) [Titer] [facility] (63101) Reagin Ab RPR Ql Reactive (A) University of (S) [facility] (78180) Sodium 140 mmol/L (no code) 135 - 145 mmol/L Universi ty of [Moles/Vol] [facility] ICT (25418) T. pallidum Reactive (A) [facility] IgG+IgM IA Ql [facility] (S) [facility] (60433) Urea nitrogen 17 mg/dL (no code) 7 - 20 mg/dL University of [Mass/Vol] [facility] (74982) Urea 17 mg/mg (no code) 6 - 22 mg/mg University o f nitrogen/Creatin [facility] [Mass ratio] [facility] (85339) WBC (Bld) 6.4 10*3/uL (no code) 3.5 - 10.5 [place] of [#/Vol] 10*3/uL [facility] (75632) rapid plasma reagin (rpr), qualitative test 29719 on 2019-01-10 Reagin Ab RPR 1 {titer} (no code) 01-10-2019 University o f (S) [Titer] 07:00 [facility] (62532) Reagin Ab RPR Ql Reactive (no code) 01-10-2019 Universit y of (S) 07:000500 [facility] (72587) metabolic panel (14), comprehensive (cmp) 35360 on 2019-01-10 Albumin 5.4 g/dL (no code) 3.4 - 5.4 g/dL 01-10-2019 Univers ity of [Mass/Vol] 07:00 [facility] (19645) Albumin/Globulin 1.9 {ratio} (no code) 1 - 2.5 {ratio} 9 University of [Mass ratio] 07:000500 [facility] (29254) ALP [Catalytic 72 U/L (no code) 44 - 147 U/L 01-10-2019 Univ ersity of activity/Vol] 07:000 [facility] ICT (48484) ALT [Catalytic 19 U/L (no code) 4 - 40 U/L 01-10-2019 Univer sity of activity/Vol] 07: [facility] ICT (65838) AST [Catalytic 25 U/L (no code) 10 - 34 U/L 01-10-2019 Unive rsity of activity/Vol] 07: [facility] ICT (76368) Bilirubin 0.4 mg/dL (no code) 0.1 - 1.2 mg/dL 01-10-2019 Univer sity of [Mass/Vol] 07: [facility] ICT (82959) Calcium 10.8 mg/dL (no code) 8.5 - 10.2 mg/dL 01-10-2019 Univ ersity of [Mass/Vol] 07: [facility] ICT (57242) Chloride 99 mmol/L (no code) 95 - 106 mmol/L 01-10-2019 Univer sity of [Moles/Vol] 07: [facility] ICT (72496) CO2 [Moles/Vol] 22 mmol/L (no code) 23 - 29 mmol/L 01-10-2019 U niversity of : [facility] ICT (55329) Creatinine 1.14 mg/dL (no code) 01-10-2019 University of [Mass/Vol] 07: [facility] ICT (78394) GFR/1.73 sq M 92 (no code) 01-10-2019 University o f predicted among : [facility] blacks CKD-EPI Medicine ICT (S/P/Bld) [Vol (88243) rate/Area] GFR/1.73 sq M 80 (no code) 01-10-2019 University o f predicted among : [facility] ICT CKD-EPI (16415) (S/P/Bld) [Vol rate/Area] Globulin (S) 2.8 g/dL (no code) 2 - 3.5 g/dL 01-10-2019 Univer sity of [Mass/Vol] 07:00 [facility] ICT (86010) Glucose 85 mg/dL (no code) 60 - 125 mg/dL 01-10-2019 Univers ity of [Mass/Vol] 07:00-0500 [facility] ICT (51737) Potassium 5.0 mmol/L (no code) 3.7 - 5.2 mmol/L 01-10-2019 Univ ersity of [Moles/Vol] 07:00 [facility] ICT (41204) Protein 8.2 g/dL (no code) 6.4 - 8.3 g/dL 01-10-2019 Univers ity of [Mass/Vol] 07:00 [facility] ICT (61616) Sodium 137 mmol/L (no code) 135 - 145 mmol/L 01-10-2019 Univ ersity of [Moles/Vol] 07:00 [facility] ICT (20898) Urea nitrogen 22 mg/dL (no code) 7 - 20 mg/dL 01-10-2019 Unive rsity of [Mass/Vol] 07:00 [facility] ICT (07645) Urea 19 mg/mg (no code) 6 - 22 mg/mg 01-10-2019 Universit y of nitrogen/Creatin 07:00 [facility] [Mass ratio] Medicine ICT (84015) human immunodeficiency virus (hiv-1), quantitative, real-time pcr (graph) 94498 on 2019-01-10 Genetic analysis . (no code) 01-10-2019 Universit y of narrative report 07: [facility] Molgen Doc Medicine ICT (Bld/Tiss) (46087) HIV 1 RNA <20 (no code) 01-10-2019 University of CK+probe 07:00 [facility] [#/Vol] Medicine ICT (45512) HIV 1 RNA TNP (no code) 01-10-2019 University of CK+probe [Log 07:00 [facility] #/Vol] Medicine ICT (64346) cd4/cd8 ratio profile 56189 on 2019-01-10 Basophils (Bld) 0.1 10*3/uL (no code) 0 - 0.3 10*3/uL 01-10-2019 University of [#/Vol] 07:00-0500 [employer] ICT (80781) Basophils/100 1 % (no code) 0.5 - 1 % 01-10-2019 Universi ty of WBC (Bld) 07:00 [facility] Medicine ICT (07602) CD3+CD4+ (T4 312 (no code) 01-10-2019 University of helper) cells 07:000500 [employer] [facility] (Bld) [#/Vol] Medicine ICT (79656) CD3+CD4+ (T4 20.8 % (no code) 35 - 66 % 01-10-2019 Universit y of helper) 07:000500 [employer] [facility] cells/100 cells Medicine ICT (Bld) (20165) CD3+CD4+ (T4 0.49 % (no code) 0.9 - 3.7 % 01-10-2019 Univers ity of helper) 07:000 [facility] of cells/CD3+CD8+ Medicine ICT (T8 suppressor (93196) cells) cells (Bld) [# ratio] CD3+CD8+ (T8 639 /uL (no code) 190 - 832 /uL 01-10-2019 Unive rsity of suppressor 07:00 [facility] of cells) cells Medicine ICT (Bld) [#/Vol] (27341) CD3+CD8+ (T8 42.6 % (no code) 9 - 37 % 01-10-2019 Universit y of suppressor 07:000500 [employer] cells) cells/100 Medicine ICT cells (Bld) (56104) Eosinophils 0.3 10*3/uL (no code) 0.05 - 0.5 01-10-2019 Univers ity of (Bld) [#/Vol] 10*3/uL 07:000500 [facility] ICT (80428) Eosinophils/100 4 % (no code) 1 - 4 % 01-10-2019 Univer sity of WBC (Bld) 07:000 [facility] Medicine ICT (23467) Erythrocyte 14.7 % (no code) 11.6 - 14.6 % 01-10-2019 Univer sity of distribution 07:00 [facility] of width (RBC) Medicine ICT [Ratio] (47039) Hematocrit (Bld) 40.9 % (no code) 36.1 - 50.3 % 01-10-2019 U niversity of [Volume 07:00-499 [facility]] Medicine ICT (95257) Hemoglobin (Bld) 13.8 g/dL (no code) 12.1 - 17.2 g/dL 01-10-2019 University of [Mass/Vol] 07:00050 [facility] ICT (78873) Immature Cells INSIDE SALES DIRECTOR (no code) 01-10-2019 University of 07:00050 [facility] ICT (79993) Immature 0.0 10*3/uL (no code) 0 - 0.2 10*3/uL 01-10-2019 Univ ersity of granulocytes 07: [facility] (d) [#/Vol] Medicine ICT (45273) Immature 0 % (no code) 0 - 0.5 % 01-10-2019 University o f granulocytes/100 07: [facility] WBC (Bld) Medicine ICT (90799) Lymphocytes 1.5 10*3/uL (no code) 0.9 - 2.9 01-10-2019 Universi ty of (Bld) [#/Vol] 10*3/uL 07:00 [facility] ICT (10245) Lymphocytes/100 18 % (no code) 20 - 40 % 01-10-2019 Univer sity of WBC (Bld) 07: [facility] ICT (48716) MCH (RBC) 28.6 pg (no code) 27 - 31 pg 01-10-2019 University of [Entitic mass] 07:00-0500 [facility] ICT (89157) MCHC (RBC) 33.7 g/dL (no code) 32 - 36 g/dL 01-10-2019 Universi ty of [Mass/Vol] 07:00-0500 [facility] ICT (27475) MCV (RBC) 85 fL (no code) 80 - 100 fL 01-10-2019 [place] of [Entitic vol] 07:00-0500 [facility] ICT (75414) Monocytes (Bld) 0.8 10*3/uL (no code) 0.3 - 0.9 01-10-2019 Univ ersity of [#/Vol] 10*3/uL 07:00-0500 [facility] o [facility] ICT (12395) Monocytes/100 9 % (no code) 2 - 8 % 01-10-2019 Universi ty of WBC (Bld) 07:000500 [facility] ICT (60616) Morphology León INSIDE SALES DIRECTOR (no code) 01-10-2019 University of (Bld) [Interp] 07:00050 [facility] ICT (48309) Neutrophils 6.0 10*3/uL (no code) 1.7 - 7 10*3/uL 01-10-2019 Un iversity of (Bld) [#/Vol] 07:00050 [facility] ICT (95963) Neutrophils/100 68 % (no code) 40 - 60 % 01-10-2019 Univer sity of WBC (Bld) 07:00 [facility] ICT (35269) Nucleated INSIDE SALES DIRECTOR (no code) 01-10-2019 University of RBC/100 WBC 07:00 [facility] (Bld) [Ratio] Medicine ICT (57357) Platelets (Bld) 349 10*3/uL (no code) 150 - 450 01-10-2019 Univ ersity of [#/Vol] 10*3/uL 07:000500 [facility] ICT (10879) RBC (Bld) 4.82 10*6/uL (no code) 4.2 - 6.1 01-10-2019 Universit y of [#/Vol] 10*6/uL 07:000500 [facility] ICT (70538) WBC (Bld) 8.7 10*3/uL (no code) 3.5 - 10.5 01-10-2019 Universit y of [#/Vol] 10*3/uL 07:000500 [facility] ICT (14561) No panel information on 2018-09-13 Albumin 5.0 g/dL (no code) 3.4 - 5.4 g/dL University of [Mass/Vol] [facility] ICT (28030) Albumin/Globulin 1.5 {ratio} (no code) 1 - 2.5 {ratio} Univ ersity of [Mass ratio] [facility] ICT () ALP [Catalytic 94 U/L (no code) 44 - 147 U/L Universit y of activity/Vol] [facility] ICT () ALT [Catalytic 18 U/L (no code) 4 - 40 U/L University of activity/Vol] [facility] ICT () AST [Catalytic 21 U/L (no code) 10 - 34 U/L University of activity/Vol] [facility] ICT (60050) Average glucose 105 (no code) University of Estimated from [facility] glycated [facility] ICT hemoglobin mass () conc (Bld) Basophils (Bld) 0.1 10*3/uL (no code) 0 - 0.3 10*3/uL Unive rsity of [#/Vol] [facility] ICT () Basophils/100 1 % (no code) 0.5 - 1 % University o f WBC (Bld) [facility] ICT (74485) Bilirubin mg/dL (no code) 0.1 - 1.2 mg/dL Universit y of [Mass/Vol] [facility] ICT () Calcium 9.9 mg/dL (no code) 8.5 - 10.2 mg/dL Universi ty of [Mass/Vol] [facility] ICT () CD3+CD4+ (T4 362 (no code) University of helper) cells [facility] of (Bld) [#/Vol] Medicine ICT (04951) CD3+CD4+ (T4 22.6 % (L) 35 - 66 % University of helper) [facility] of cells/100 cells Medicine ICT (Bld) (30441) CD3+CD4+ (T4 0.48 % (L) 0.9 - 3.7 % University o f helper) [facility] of cells/CD3+CD8+ Medicine ICT (T8 suppressor (03525) cells) cells (Bld) [# ratio] CD3+CD8+ (T8 749 /uL (no code) 190 - 832 /uL University of suppressor [employer] cells) cells Medicine ICT (Bld) [#/Vol] (87947) CD3+CD8+ (T8 46.8 % (H) 9 - 37 % University of suppressor [facility] of cells) cells/100 Medicine ICT cells (Bld) (11479) Chloride 102 mmol/L (no code) 95 - 106 mmol/L Universit y of [Moles/Vol] [facility] ICT (59423) CO2 [Moles/Vol] 26 mmol/L (no code) 23 - 29 mmol/L [facility] ICT (64501) Creatinine 0.88 mg/dL (no code) University of [Mass/Vol] [facility] ICT (89667) Eosinophils 0.3 10*3/uL (no code) 0.05 - 0.5 University of (Bld) [#/Vol] 10*3/uL [facility] ICT (55629) Eosinophils/100 3 % (no code) 1 - 4 % [facility] WBC (Bld) [facility] ICT (51136) Erythrocyte 12.3 % (no code) 11.6 - 14.6 % University of distribution [facility] width (RBC) Medicine ICT [Ratio] (89379) Genetic analysis . (no code) University of narrative report [facility] Molgen Doc Medicine ICT (Bld/Tiss) (78184) GFR/1.73 sq M 124 (no code) University of predicted among [facility] of blacks CKD-EPI Medicine ICT (S/P/Bld) [Vol (21416) rate/Area] GFR/1.73 sq M 107 (no code) University of predicted among [facility] non-blacks Medicine ICT CKD-EPI (82577) (S/P/Bld) [Vol rate/Area] Globulin (S) 3.3 g/dL (no code) 2 - 3.5 g/dL University [Mass/Vol] [facility] ICT (10661) Glucose 88 mg/dL (no code) 60 - 125 mg/dL University [Mass/Vol] [facility] ICT (64824) HbA1c (Bld) 5.3 % (no code) 0 - 5.7 % University [Mass fraction] [facility] ICT (15711) Hematocrit (Bld) 40.2 % (no code) 36.1 - 50.3 % Univer sity of [Volume [facility] of fraction] [facility] ICT (52352) Hemoglobin (Bld) 13.0 g/dL (no code) 12.1 - 17.2 g/dL Uni versity of [Mass/Vol] [facility] (60646) HIV 1 RNA <20 (no code) [facility] CK+probe [facility] [#/Vol] [facility] ICT (02035) HIV 1 RNA TNP (no code) [facility] CK+probe [Log [facility] #/Vol] [facility] ICT (63676) Immature Cells INSIDE SALES DIRECTOR (no code) [facility] ICT (98782) Immature 0.0 10*3/uL (no code) 0 - 0.2 10*3/uL Universit y of granulocytes [facility] (Bld) [#/Vol] [facility] ICT (51334) Immature 0 % (no code) 0 - 0.5 % University of granulocytes/100 [employer] WBC (Bld) [facility] ICT (55653) Lymphocytes 1.6 10*3/uL (no code) 0.9 - 2.9 University of (Bld) [#/Vol] 10*3/uL [facility] ICT (18059) Lymphocytes/100 15 % (no code) 20 - 40 % University of WBC (Bld) [facility] ICT (89738) MCH (RBC) 26.8 pg (no code) 27 - 31 pg University of [Entitic mass] [facility] ICT (14468) MCHC (RBC) 32.3 g/dL (no code) 32 - 36 g/dL University o f [Mass/Vol] [facility] ICT (81053) MCV (RBC) 83 fL (no code) 80 - 100 fL University of [Entitic vol] [facility] ICT (63065) Monocytes (Bld) 0.8 10*3/uL (no code) 0.3 - 0.9 University of [#/Vol] 10*3/uL [facility] ICT (68756) Monocytes/100 8 % (no code) 2 - 8 % University o f WBC (Bld) [facility] (46354) Morphology León INSIDE SALES DIRECTOR (no code) University of (d) [Interp] [facility] (65993) Neutrophils 8.0 10*3/uL (H) 1.7 - 7 10*3/uL Universit y of (Bld) [#/Vol] [facility] ICT (10585) Neutrophils/100 73 % (no code) 40 - 60 % University of WBC (Bld) [facility] ICT (21371) Nucleated INSIDE SALES DIRECTOR (no code) University of RBC/100 WBC [facility] (d) [Ratio] [facility] (24812) Platelets (Bld) 402 10*3/uL (no code) 150 - 450 University of [#/Vol] 10*3/uL [facility] () Potassium 4.7 mmol/L (no code) 3.7 - 5.2 mmol/L Universi ty [Moles/Vol] [facility] (70435) Protein 8.3 g/dL (no code) 6.4 - 8.3 g/dL [facility] [Mass/Vol] [facility] (96236) RBC (Bld) 4.85 10*6/uL (no code) 4.2 - 6.1 University of [#/Vol] 10*6/uL [facility] () Reagin Ab RPR 1:2 (H) University of (S) [Titer] [facility] (70327) Reagin Ab RPR Ql Reactive (A) [facility] (S) [facility] (68128) Sodium 141 mmol/L (no code) 135 - 145 mmol/L Universi ty of [Moles/Vol] [facility] (50691) Urea nitrogen 14 mg/dL (no code) 7 - 20 mg/dL [facility] [Mass/Vol] [facility] (47334) Urea 16 mg/mg (no code) 6 - 22 mg/mg University o f nitrogen/Creatin [facility] [Mass ratio] [facility] (29220) WBC (Bld) 10.9 10*3/uL (H) 3.5 - 10.5 [facility] [#/Vol] 10*3/uL [employer] [facility] ICT (81576) No panel information on 2018-05-09 Basophils (Bld) 0.054 10*3/uL (N) 0 - 0.3 10*3/uL [facility] [#/Vol] [facility] (53170) Basophils/100 0.5 % (N) 0.5 - 1 % [facility] WBC (Bld) [facility] (77873) Eosinophils 0.389 10*3/uL (N) 0.05 - 0.5 [facility] He alth (Bld) [#/Vol] 10*3/uL [facility] (52597) Eosinophils/100 3.6 % (N) 1 - 4 % [facility] WBC (Bld) [facility] (79104) Erythrocyte 14.1 % (N) 11.6 - 14.6 % Community ealth distribution [facility] (RBC) [facility] [Ratio] (58445) Hematocrit (Bld) 40.6 % (N) 36.1 - 50.3 % [facility] [Volume Center of [facility] (67129) Hemoglobin (Bld) 13.6 g/dL (N) 12.1 - 17.2 g/dL [facility] [Mass/Vol] [facility] (05594) Lymphocytes 2.581 10*3/uL (N) 0.9 - 2.9 [facility] He alth (Bld) [#/Vol] 10*3/uL [facility] (77322) Lymphocytes/100 23.9 % (N) 20 - 40 % [facility] WBC (Bld) [facility] (64000) MCH (RBC) 29.6 pg (N) 27 - 31 pg [facility] [Entitic mass] [facility] (25194) MCHC (RBC) 33.5 g/dL (N) 32 - 36 g/dL [facility] He alth [Mass/Vol] [facility] (53675) MCV (RBC) 88.3 fL (N) 80 - 100 fL [facility] Hea lth [Entitic vol] [facility] (75756) Monocytes (Bld) 1.048 10*3/uL (H) 0.3 - 0.9 [facility] [#/Vol] 10*3/uL [facility] (18280) Monocytes/100 9.7 % (N) 2 - 8 % Community [facility] WBC (Bld) [facility] (64240) Neutrophils 6.728 10*3/uL (N) 1.7 - 7 10*3/uL [facility] (Bld) [#/Vol] [facility] (17470) Neutrophils/100 62.3 % (N) 40 - 60 % [facility] WBC (Bld) [facility] (37790) Platelet mean 11.9 fL (N) 7.2 - 11.7 fL [facility] volume (Bld) [facility] [Entitic vol] [facility] (06999) Platelets (Bld) 332 10*3/uL (N) 150 - 450 [facility] [#/Vol] 10*3/uL [facility] (96438) RBC (Bld) 4.60 10*6/uL (N) 4.2 - 6.1 [facility] Hea lth [#/Vol] 10*6/uL [facility] (80358) WBC (Bld) 10.8 10*3/uL (N) 3.5 - 10.5 [facility] lth [#/Vol] 10*3/uL [facility] (42276) No panel information on 2018-02-08 Absolute CD 4 TNP (no code) [facility] [place] [facility] ICT (30014) Albumin 5.0 g/dL (no code) 3.4 - 5.4 g/dL University [Mass/Vol] [facility] ICT (80667) Albumin/Globulin 1.7 {ratio} (no code) 1 - 2.5 {ratio} Univ ersity of [Mass ratio] [facility] ICT (85111) ALP [Catalytic 103 U/L (no code) 44 - 147 U/L Universit y of activity/Vol] [facility] ICT (05559) ALT [Catalytic 18 U/L (no code) 4 - 40 U/L University of activity/Vol] [facility] ICT (02241) AST [Catalytic 33 U/L (no code) 10 - 34 U/L University of activity/Vol] [facility] ICT (17816) Basophils (Bld) TNP (no code) University of [#/Vol] [facility] ICT (47262) Basophils/100 INSIDE SALES DIRECTOR (no code) University of WBC (Bld) [facility] ICT (54702) Bilirubin 0.3 mg/dL (no code) 0.1 - 1.2 mg/dL Universit y of [Mass/Vol] [facility] ICT (73726) Calcium 9.1 mg/dL (no code) 8.5 - 10.2 mg/dL Universi ty of [Mass/Vol] [facility] ICT (60192) CD3+CD4+ (T4 20.7 % (L) 35 - 66 % University of helper) [employer] cells/100 cells Medicine ICT (Bld) (31256) CD3+CD4+ (T4 0.45 % (L) 0.9 - 3.7 % University o f helper) [facility] of cells/CD3+CD8+ Medicine ICT (T8 suppressor (46435) cells) cells (Bld) [# ratio] CD3+CD8+ (T8 TNP (no code) University of suppressor [employer] cells) cells Medicine ICT (Bld) [#/Vol] (39814) CD3+CD8+ (T8 45.8 % (H) 9 - 37 % University of suppressor [employer] cells) cells/100 Medicine ICT cells (Bld) (11917) Chloride 92 mmol/L (L) 95 - 106 mmol/L Universit y of [Moles/Vol] [facility] ICT (82401) CO2 [Moles/Vol] 19 mmol/L (L) 23 - 29 mmol/L Univer [facility] ICT (12449) Creatinine 1.26 mg/dL (no code) University of [Mass/Vol] [facility] ICT (69862) eGFR If Africn 83 (no code) University of Am [facility] ICT (57597) eGFR If 71 (no code) [place] of NonAfricn Am [facility] ICT (00758) Eosinophils TNP (no code) University (Bld) [#/Vol] [facility] ICT (91320) Eosinophils/100 TNP (no code) [place] of WBC (Bld) [facility] ICT (68139) Erythrocyte 15.7 % (H) 11.6 - 14.6 % University of distribution [facility] width (RBC) Medicine ICT [Ratio] (03515) Globulin (S) 3.0 g/dL (no code) 2 - 3.5 g/dL [facility] [Mass/Vol] [facility] ICT (39246) Glucose mg/dL (<) 60 - 125 mg/dL [facility] [Mass/Vol] [facility] ICT (36992) Hematocrit (Bld) 42.1 % (no code) 36.1 - 50.3 % Univer sity of [Volume [facility] of fraction] [facility] ICT (72664) Hemoglobin (Bld) 13.2 g/dL (no code) 12.1 - 17.2 g/dL Uni versity of [Mass/Vol] [facility] ICT (70892) HIV 1 RNA 40 (no code) University of CK+probe [facility] [#/Vol] [facility] ICT (65804) Immature Cells INSIDE SALES DIRECTOR (no code) [facility] ICT (74122) Immature INSIDE SALES DIRECTOR (no code) University of granulocytes [facility] ([facility]) [#/Vol] Medicine ICT (59797) Immature INSIDE SALES DIRECTOR (no code) University of granulocytes/100 [employer] of WBC (d) Medicine ICT (33341) log10 HIV-1 RNA 1.602 (no code) [facility] ICT (43017) Lymphocytes TNP (no code) [facility] (d) [#/Vol] [facility] ICT (68186) Lymphocytes/100 TNP (no code) University WBC (Bld) [facility] ICT (46767) MCH (RBC) 28.2 pg (no code) 27 - 31 pg University [Entitic mass] [facility] ICT (20929) MCHC (RBC) 31.4 g/dL (L) 32 - 36 g/dL University o f [Mass/Vol] [facility] ICT (08596) MCV (RBC) 90 fL (no code) 80 - 100 fL [facility] [Entitic vol] [facility] (49022) Monocytes (Bld) INSIDE SALES DIRECTOR (no code) [facility] [#/Vol] [facility] (42094) Monocytes/100 TNP (no code) University of WBC (Bld) [facility] ICT (51117) Morphology León Note: (no code) [facility] (Bld) [Interp] [facility] (47705) Neutrophils INSIDE SALES DIRECTOR (no code) [facility] (Bld) [#/Vol] [facility] (46380) Neutrophils/100 TNP (no code) [place] of WBC (Bld) [facility] (29276) Nucleated INSIDE SALES DIRECTOR (no code) University of RBC/100 WBC [facility] (Bld) [Ratio] [facility] (72694) Platelets (Bld) 320 10*3/uL (no code) 150 - 450 University of [#/Vol] 10*3/uL [facility] (56889) Potassium mmol/L (>) 3.7 - 5.2 mmol/L Universi ty [Moles/Vol] [facility] (84398) Protein 8.0 g/dL (no code) 6.4 - 8.3 g/dL [facility] [Mass/Vol] [facility] (32449) RBC (Bld) 4.68 10*6/uL (no code) 4.2 - 6.1 University of [#/Vol] 10*6/uL [facility] (34955) Reagin Ab RPR 1 {titer} (H) University of (S) [Titer] [facility] (72687) Reagin Ab RPR Ql Reactive (A) [place] of (S) [facility] (82770) Sodium 138 mmol/L (no code) 135 - 145 mmol/L Universi ty [Moles/Vol] [facility] (41497) Treponema no information (A) University of pallidum [facility] ICT (96002) Urea nitrogen 16 mg/dL (no code) 7 - 20 mg/dL University [Mass/Vol] [facility] ICT (36251) Urea 13 mg/mg (no code) 6 - 22 mg/mg University o f nitrogen/Creatin [facility] [Mass ratio] [facility] ICT (72217) WBC (Bld) 7.9 10*3/uL (no code) 3.5 - 10.5 University of [#/Vol] 10*3/uL [facility] ICT (22201) No panel information on 2017-09-21 Absolute CD 4 307 (L) University [place] [facility] ICT (60034) Alanine 12 U/L (no code) 4 - 40 U/L [facility] aminotransferase [facility] (ALT) [facility] ICT (05572) Albumin 4.4 g/dL (no code) 3.4 - 5.4 g/dL [facility] ICT (94779) Albumin/Globulin 1.3 {ratio} (no code) 1 - 2.5 {ratio} Univ ersity of [facility] ICT (15891) Alkaline 92 U/L (no code) 44 - 147 U/L University o f phosphatase [facility] (ALP) [facility] ICT (43934) Aspartate 22 U/L (no code) 10 - 34 U/L [facility] aminotransferase [facility] (AST) [facility] ICT (62180) Basophils 0.0 10*3/uL (no code) 0 - 0.3 10*3/uL Universit y of [facility] ICT (13203) Basophils/100 1 % (no code) 0.5 - 1 % University o f leukocytes [facility] ICT (37307) Bilirubin 0.3 mg/dL (no code) 0.1 - 1.2 mg/dL Universit y of (total) [facility] ICT (70995) Blood morphology INSIDE SALES DIRECTOR (no code) [facility] ICT (87106) BUN/Creatinine 20 mg/mg (no code) 6 - 22 mg/mg Universit y of [facility] ICT (68567) Calcium 9.8 mg/dL (no code) 8.5 - 10.2 mg/dL Universi ty [facility] ICT (14554) Chloride 99 mmol/L (no code) 95 - 106 mmol/L [facility] (37379) CO2 22 mmol/L (no code) 23 - 29 mmol/L [facility] ICT (68038) Creatinine 0.87 mg/dL (no code) [facility] ICT (52256) eGFR If Africn 126 (no code) [facility] ICT (94804) eGFR If 109 (no code) [facility] (98172[facility] Eosinophils 0.2 10*3/uL (no code) 0.05 - 0.5 University of 10*3/uL [facility] ICT (49267) Eosinophils/100 3 % (no code) 1 - 4 % University [facility] ICT (29131) Erythrocytes 4.85 10*6/uL (no code) 4.2 - 6.1 [place] o (RBC) 10*6/uL [facility] ICT (01942) Globulin 3.4 g/dL (no code) 2 - 3.5 g/dL University o f [facility] ICT (32958) Glucose 86 mg/dL (no code) 60 - 125 mg/dL [facility] ICT (75793) Hematocrit (HCT) 41.0 % (no code) 36.1 - 50.3 % [facility] (86179[facility] Hemoglobin (HGB) 12.7 g/dL (L) 12.1 - 17.2 g/dL Uni versity [facility] ICT (19449) HIV 1 viral load <20 (no code) [facility] ICT (98855) Immature Cells INSIDE SALES DIRECTOR (no code) [facility] ICT (33610) Immature Grans 0.0 (no code) [facility] (Abs) [facility] ICT (18947) Immature 0 (no code) [facility] ICT (81860) log10 HIV-1 RNA TNP (no code) [facility] ICT (06270) Lymphocytes 1.4 10*3/uL (no code) 0.9 - 2.9 University of 10*3/uL [facility] ICT (07798) Lymphocytes/100 22 % (no code) 20 - 40 % University of leukocytes [facility] ICT (69540) MCH 26.2 pg (L) 27 - 31 pg [facility] ICT (20643) MCHC 31.0 g/dL (L) 32 - 36 g/dL University o f [facility] ICT (14656) MCV 85 fL (no code) 80 - 100 fL [facility] ICT (30482) Monocytes 0.5 10*3/uL (no code) 0.3 - 0.9 University of 10*3/uL [facility] ICT (80291) Monocytes/100 7 % (no code) 2 - 8 % [place] o f leukocytes [facility] ICT (07363) Neutrophils 4.2 10*3/uL (no code) 1.7 - 7 10*3/uL Universit y [facility] ICT (50579) Neutrophils/100 67 % (no code) 40 - 60 % University of leukocytes [facility] ICT (17937) Nucleated INSIDE SALES DIRECTOR (no code) University of erythrocytes/100 [facility] erythrocytes [facility] ICT (10830) Platelets 335 10*3/uL (no code) 150 - 450 University of 10*3/uL [facility] ICT (73520) Potassium 4.7 mmol/L (no code) 3.7 - 5.2 mmol/L Universi ty [facility] ICT (43846) Protein 7.8 g/dL (no code) 6.4 - 8.3 g/dL [facility] ICT (18305) RDW-CA 15.9 % (H) 11.6 - 14.6 % [facility] (80384) Reagin antibody 1:2 (H) [facility] (27429) Reagin antibody Reactive (A) University presence [facility] ICT (43952) Sodium 136 mmol/L (no code) 135 - 145 mmol/L Universi ty of [facility] ICT (61638) T4 helper / T8 0.53 % (L) 0.9 - 3.7 % University of suppressor ratio [facility] ICT (26441) T4 helper/100 21.9 % (L) 35 - 66 % University o f cells [facility] ICT (37902) T8 suppressor 575 /uL (no code) 190 - 832 /uL Universit y of cell count [facility] ICT (68553) T8 41.1 % (H) 9 - 37 % University of suppressor/100 [employer] cells [facility] ICT (33210) Treponema no information (A) University of [facility] Antibodies [facility] ICT (86408) Urea nitrogen 17 mg/dL (no code) 7 - 20 mg/dL [facility] ICT (42039) WBC (Leukocytes) 6.3 10*3/uL (no code) 3.5 - 10.5 Universit y of 10*3/uL [facility] ICT (81590) No panel information on 2017-06-15 Absolute CD 4 361 (no code) [facility] [place] [facility] ICT (03249) Albumin mass 4.7 g/dL (no code) 3.4 - 5.4 g/dL Universit y of conc [facility] ICT (42951) Albumin/Globulin 1.6 {ratio} (no code) 1 - 2.5 {ratio} Univ ersity of mass ratio [facility] ICT (67143) ALP enzyme 96 U/L (no code) 44 - 147 U/L University o f act/vol [facility] ICT (27061) ALT enzyme 10 U/L (no code) 4 - 40 U/L [facility] act/vol [facility] ICT (80342) AST enzyme 19 U/L (no code) 10 - 34 U/L [facility] act/vol [facility] ICT (47252) Basophils Auto 0.0 10*3/uL (no code) 0 - 0.3 10*3/uL Univer sity of #/vol (Bld) [facility] ICT (74682) Basophils/100 0 % (no code) 0.5 - 1 % University o f WBC Auto (Bld) [facility] ICT (65085) Bilirubin mass mg/dL (no code) 0.1 - 1.2 mg/dL Univer sity [facility] ICT (48898) Calcium mass 9.4 mg/dL (no code) 8.5 - 10.2 mg/dL [facility] (73107[facility] CD3+CD4+ (T4 12.9 % (L) 35 - 66 % University of helper) [employer] of cells/100 cells Medicine ICT (Bld) (05231) CD3+CD4+ (T4 0.24 % (L) 0.9 - 3.7 % University o f helper) [facility] of cells/CD3+CD8+ Medicine ICT (T8 suppressor (20990) cells) cells # ratio (Bld) CD3+CD8+ (T8 1484 /uL (H) 190 - 832 /uL University of suppressor [employer] of cells) cells Medicine ICT #/vol (Bld) (45853) CD3+CD8+ (T8 53.0 % (H) 9 - 37 % University of suppressor [employer] of cells) cells/100 Medicine ICT cells (Bld) (36890) Chloride molar 100 mmol/L (no code) 95 - 106 mmol/L [facility] (48590[facility] Cholesterol in 52 mg/dL (no code) University of HDL mass [facility] ICT (42765) Cholesterol in 78 (no code) University of LDL mass [facility] ICT (51052) Cholesterol in 23 (no code) University of VLDL mass [facility] ICT (04144) Cholesterol mass 153 mg/dL (no code) 180 - 200 mg/dL Univ ersity [facility] ICT (73274) CO2 molar conc 26 mmol/L (no code) 23 - 29 mmol/L [facility] (71586) Comment: INSIDE SALES DIRECTOR (no code) [facility] ICT (49901) Creatinine mass 0.96 mg/dL (no code) University of conc [employer] ICT (80785) eGFR If Africn 115 (no code) University [facility] ICT (54533) eGFR If 100 (no code) [facility] NonAfricn [facility] ICT (44404) Eosinophils Auto 0.6 10*3/uL (H) 0.05 - 0.5 Universit y of #/vol (Bld) 10*3/uL [facility] ICT (20123) Eosinophils/100 7 % (no code) 1 - 4 % University of WBC Auto (Bld) [facility] ICT (74183) Erythrocyte 16.7 % (H) 11.6 - 14.6 % University of distribution [facility] of width Auto Ratio Medicine ICT (RBC) (55863) Globulin 2.9 g/dL (no code) 2 - 3.5 g/dL University o f Calculated mass [facility] (S) [facility] ICT (78365) Glucose mass 99 mg/dL (no code) 60 - 125 mg/dL Universit y of conc [facility] ICT (74349) Hematocrit Auto 40.1 % (no code) 36.1 - 50.3 % Univers ity of Volume Fraction [facility] ([facility]) [facility] ICT (97692) Hemoglobin mass 12.7 g/dL (L) 12.1 - 17.2 g/dL Univ ersity of conc (Bld) [facility] ICT (03242) HIV 1 RNA <20 (no code) University of CK+probe #/vol [facility] ICT (20376) Immature Cells INSIDE SALES DIRECTOR (no code) [facility] ICT (09839) Immature 0.0 10*3/uL (no code) 0 - 0.2 10*3/uL Universit y of granulocytes [facility] #/vol (Bld) Medicine ICT (77838) Immature 0 % (no code) 0 - 0.5 % University of granulocytes/100 [facility] WBC (d) [facility] ICT (04663) log10 HIV-1 RNA TNP (no code) [facility] ICT (12021) Lymphocytes Auto 2.8 10*3/uL (no code) 0.9 - 2.9 Universit y of #/vol (Bld) 10*3/uL [facility] ICT (24256) Lymphocytes/100 34 % (no code) 20 - 40 % University of WBC Auto (Bld) [facility] ICT (52652) MCH Auto Entitic 26.6 pg (no code) 27 - 31 pg Universit y of mass (RBC) [facility] ICT (61656) MCHC Auto mass 31.7 g/dL (no code) 32 - 36 g/dL Universit y of conc (RBC) [facility] ICT (07855) MCV Auto Entitic 84 fL (no code) 80 - 100 fL Universi ty of volume (RBC) [facility] ICT (31365) Monocytes Auto 0.9 10*3/uL (no code) 0.3 - 0.9 University of #/vol (d) 10*3/uL [facility] ICT (83522) Monocytes/100 12 % (no code) 2 - 8 % University o f WBC Auto (Bld) [facility] ICT (73224) Morphology INSIDE SALES DIRECTOR (no code) University of Interp León (Bld) [facility] ICT (63116) Neutrophils Auto 3.9 10*3/uL (no code) 1.7 - 7 10*3/uL Univ ersity of #/vol (Bld) [facility] ICT (80106) Neutrophils/100 47 % (no code) 40 - 60 % University of WBC Auto (d) [facility] ICT (71354) Nucleated INSIDE SALES DIRECTOR (no code) University of RBC/100 WBC [facility] Ratio ([facility]) Medicine ICT (52515) Platelets Auto 349 10*3/uL (no code) 150 - 450 University of #/vol (d) 10*3/uL [facility] ICT (15193) Potassium molar 4.5 mmol/L (no code) 3.7 - 5.2 mmol/L Univ ersity of conc [facility] ICT (35884) Protein mass 7.6 g/dL (no code) 6.4 - 8.3 g/dL Universit y of conc [facility] ICT (66309) RBC Auto #/vol 4.78 10*6/uL (no code) 4.2 - 6.1 University (Bld) 10*6/uL [facility] ICT (43447) Reagin Ab RPR Ql Reactive (A) University of (S) [facility] ICT (64736) Reagin Ab RPR 1 {titer} (H) University of titer (S) [facility] (20625) Sodium molar 139 mmol/L (no code) 135 - 145 mmol/L [facility] (63579) Treponema no information (A) [place] of [facility] ICT (25984) Triglyceride 115 mg/dL (no code) 0 - 150 mg/dL [facility] (05391) Urea nitrogen 15 mg/dL (no code) 7 - 20 mg/dL [facility] (02198) Urea 16 mg/mg (no code) 6 - 22 mg/mg University o f nitrogen/Creatin [facility] ICT (84546) WBC Auto #/vol 8.2 10*3/uL (no code) 3.5 - 10.5 [facility] (Bld) 10*3/uL [facility] ICT (92776) Vital Signs Vital Sign Value Interpretation Reference Date Time Care Prov ider Facility (Normalized) (Normalized) Range BMI (Body Mass 25.73 kg/m2 (no code) 15 - 25 kg/m2 01-10-2019 jose [facility] [place]) 09:30-0500 [id number] [facility] (88850) BMI (Body Mass 24.25 kg/m2 (no code) 15 - 25 kg/m2 09-13-2018 [facility] [place]) 09:30-0400 [id number] [facility] (97238) BMI (Body Mass 22.12 kg/m2 (no code) 15 - 25 kg/m2 02-08-2018 [facility]) 09:15-0500 [id number] [facility] (89391) BMI (Body Mass 22.45 kg/m2 (no code) 15 - 25 kg/m2 11-30-2017 [facility]) 09:30-0400 [id number] [facility] (12756) BMI (Body Mass 22.61 kg/m2 (no code) 15 - 25 kg/m2 09-21-2017 Michael bar [facility] of Index) 09:15-0400 [id number] [facility] MPA (86446) Body height 166.37 cm (no code) cm 04-11-2019 [facility] 12:30-0500 [id number] [facility] MPA (49050) Body height 162.56 cm (no code) cm 05-21-2013 [facility]: 17501 [facility] (50982) Body mass 26.22 kg/m2 (no code) 15 - 25 kg/m2 04-11-2019 [facility] (BMI) 12:30-0500 [id number] [facility] [Ratio] [facility] MPA (42743) Body 98.5 [degF] (no code) 97.8 - 99.0 04-11-2019 [facility] temperature [degF] 12:30-0500 [id number] [employer] [facility] (06546) Body 98.8 [degF] (no code) 97.8 - 99.0 01-10-2019 [facility] [degF] 09:30-0500 [id number] [employer] [facility] (40308) Body 99.1 [degF] (no code) 97.8 - 99.0 09-13-2018 [facility] Temperature [degF] 09:30-0400 [id number] [facility] (56287) Body 98.5 [degF] (no code) 97.8 - 99.0 02-08-2018 [facility] Temperature [degF] 09:15-0500 [id number] [facility] (57156) Body 98.4 [degF] (no code) 97.8 - 99.0 11-30-2017 [facility] Temperature [degF] 09:30-0400 [id number] [facility] (03093) Body 98.8 [degF] (no code) 97.8 - 99.0 09-21-2017 [facility] Temperature [degF] 09: [id number] [facility] Medicine MPA (68179) Body 98.1 [degF] (no code) 97.8 - 99.0 05-21-2013 LINDSEY [facility] temperature [degF] 15: 31252 [facility] (61322) Body weight 72.58 kg (no code) kg 04-11-2019 [facility] of 12:30050 [id number] [facility] MPA (94604) Body weight 71.22 kg (no code) kg 01-10-2019 Araseli [facility] of 09: [id number] [facility] (85539) Body weight 67.13 kg (no code) kg 09-13-2018 [facility] of 09: [id number] [facility] MPA (55397) Body weight 55.48 kg (no code) kg 05-21-2013 LINDSEY [facility] 15: 11164 [facility] (06430) Blood Pressure 124/ (no code) Systolic: - 01-10-2019 Gorge león [facility] of 68mm[Hg] 120 mm[Hg] 09: [id number] [employer] [facility] Diastolic: 60 [facility] (17499) - 80 mm[Hg] Blood Pressure 128/ (no code) Systolic: 09-13-2018 [facility] of 74mm[Hg] 120 mm[Hg] 09:30 [id number] [facility] Diastolic: 60 [facility] (29260) - 80 mm[Hg] Blood Pressure 114/ (no code) Systolic: 02-08-2018 [facility] of 70mm[Hg] 120 mm[Hg] 09:15 [id number] [facility] Diastolic: 60 [facility] (39216) - 80 mm[Hg] Blood Pressure 110/ (no code) Systolic: - 11-30-2017 [facility] 80mm[Hg] 120 mm[Hg] 09:30 [id number] [facility] Diastolic: 60 [facility] (96610) - 80 mm[Hg] Blood Pressure 114/ (no code) Systolic: 09-21-2017 [facility] 72mm[Hg] 119 mm[Hg] 09: [id number] [facility] Diastolic: 60 [facility] (34257) - 79 mm[Hg] Blood Pressure 124/ (no code) Systolic: - 04-11-2019 [facility] 82mm[Hg] 120 mm[Hg] 12:[id number] [place] [address] Diastolic: 60 [facility] (81796) - 80 mm[Hg] Heart rate 81 /min (no code) 60 - 100 /min 04-11-2019 [facility] 12:300500 [id number] [facility] (39537) Height 166.37 cm (no code) cm 01-10-2019 [facility] 09:300500 [id number] [facility] (22221) Height 166.37 cm (no code) cm 09-13-2018 [facility] 09:300400 [id number] [facility] (80750) Height 166.37 cm (no code) cm 02-08-2018 [facility] 09:150500 [id number] [facility] (30367) Height 166.37 cm (no code) cm 11-30-2017 [facility] 09:300400 [id number] [facility] (90393) Height 166.37 cm (no code) cm 09-21-2017 [facility] 09:15-0400 [id number] [facility] (26531) Oxygen 96 % (no code) 95 - 100 % 04-11-2019 [facility] saturation in 12:[id number] [place] [address] Arterial blood [facility] by Pulse [facility] (34422) oximetry Pulse (Heart 109 /min (no code) 60 - 100 /min 01-10-2019 Araseli Samuel [facility] Rate) 09:30-0500 [id number] [facility] MPA (46927) Pulse (Heart 92 /min (no code) 60 - 100 /min 09-13-2018 [facility] Rate) 09:30-0400 [id number] [facility]PA (28006) Pulse (Heart 82 /min (no code) 60 - 100 /min 02-08-2018 [facility]) 09:15-0500 [id number] [facility] MPA (39438) Pulse (Heart 90 /min (no code) 60 - 100 /min 11-30-2017 [facility]) 09:30-0400 [id number] [facility] MPA (27598) Pulse (Heart 99 /min (no code) 60 - 100 /min 09-21-2017 [facility]) 09:15-0400 [id number] [facility] MPA (15250) Pulse Oximetry 96 % (no code) 95 - 100 % 01-10-2019 Araseli Pastor [place] of 09:30-0500 [id number] [facility] MPA (87823) Pulse Oximetry 98 % (no code) 95 - 100 % 09-13-2018 [facility] of 09:30-0400 [id number] [facility] (30252) Pulse Oximetry 98 % (no code) 95 - 100 % 02-08-2018 [facility] of 09:15-0500 [id number] [facility] MPA (93442) Pulse Oximetry 98 % (no code) 95 - 100 % 11-30-2017 [facility] of 09:30-0400 [id number] [facility] MPA (10879) Pulse Oximetry 99 % (no code) 95 - 100 % 09-21-2017 [facility] of 09:15-0400 [id number] [facility] MPA (24804) Respiratory 18 /min (no code) 12 - 20 /min 04-11-2019 Pending [facility] to [facility] of rate 12:30-0500 [id number] [facility] MPA (18712) Respiratory 20 /min (no code) 12 - 20 /min 01-10-2019 [facility] Rate 09:30-0500 [id number] [facility] MPA (11344) Respiratory 20 /min (no code) 12 - 20 /min 09-13-2018 Pending [facility] to [facility] of Rate 09:30-0400 [id number] [facility] MPA (99906) Respiratory 18 /min (no code) 12 - 20 /min 02-08-2018 Pending [facility] to [facility] of Rate 09:15-0500 [id number] [facility] MPA (13963) Respiratory 16 /min (no code) 12 - 20 /min 11-30-2017 Pending [facility] to [facility] of Rate 09:30-0400 [id number] [facility] MPA (16093) Respiratory 18 /min (no code) 12 - 20 /min 09-21-2017 Pending sale to [facility] of Rate 09:15-0400 [id number] [facility] MPA (86089) Weight 61.24 kg (no code) kg 02-08-2018 Shana Li [facility] of 09:15-0500 [id number] [facility] MPA (27741) Weight 62.14 kg (no code) kg 11-30-2017 [facility] U niversity of 09:30-0400 [id number] [facility] MPA (82954) Weight 62.6 kg (no code) kg 09-21-2017 [facility] U niversity of 09:15-0400 [id number] [facility] MPA (77064) Interventions No Information Plan of Treatment Normalized Care Care Detail Care Activity Date Care Provider F acility Activity HbA1c (Bld) [Mass no information no information [facility] fraction] [id number] [place] [address] (44006) Patient encounter [facility] [id number] M[facility] (14320) Patient encounter [facility] 09-13-2018 - [facility] [place] procedure [facility] 09-13-2018 - [id number] [facility] icioh 09-13-2018 MPA (48308) Patient encounter [facility] 01-10-2019 - Araseli [facility] procedure [facility] 01-10-2019 - [id number] [facility] 01-10-2019 MPA (09404) Goals No Information Social History No Information Functional Status The data below is from unstructured sourcesNo functional status results.No functional status information available.No functional status information available. Mental Status No Information Encounters Encounter Normalized Encounter Encounter Diagnosis Care Provi martina Organization Date Type 05-09-2018 (WALK-IN) Walk-In Care Suzanna HEIN ( no [facility] - phone) IN CARE (no phone) 05-09-2018 - 05-09-2018 05-17-2018 Consultation for Suzanna HEIN (no [facility] - laboratory medicine phone) IN CARE ( no phone) 05-17-2018 - 05-17-2018 03-15-2018 Consultation for no information Shana Li (no [facility] laboratory medicine phone) Care (no phone) 03-09-2018 Emergency department no information SHILPA DESOUZA ( no no organization name - patient visit phone) (no phone) 03-09-2018 03-09-2018 Nursing evaluation of no information [facility] [place] ([place] [facility] - patient and report phone) CARE (no p prince) 03-09-2018 - 03-09-2018 01-09-2018 Patient encounter Asymptomatic human Shana Li (no [facility] - immunodeficiency virus phone) Clinic (no phone) 01-09-2018 [HIV] infection status - 01-09-2018 01-04-2018 Patient encounter Other chronic pain Shana Li (no [facility] - phone) Clinic (no phone) 01-04-2018 - 01-04-2018 12-25-2017 Patient encounter Other chronic pain Shana Li (no [facility] phone) Clinic (no phone) 12-25-2017 - 12-25-2017 12-12-2017 Patient encounter Other chronic pain Shana Li (no [facility] phone) Clinic (no phone) 12-12-2017 - 12-12-2017 11-07-2017 Patient encounter Other chronic pain Shana Li (no [facility] phone) Clinic (no phone) 11-07-2017 - 11-07-2017 10-18-2017 Patient encounter no information Shana Li (no [facility] phone) Clinic (no phone) 10-18-2017 - 10-18-2017 10-17-2017 Patient encounter Other chronic pain Shana Li (no [facility] phone) Clinic (no phone) 10-17-2017 - 10-17-2017 10-10-2017 Patient encounter no information Shana Li (no [facility] phone) Clinic (no phone) 10-10-2017 - 10-10-2017 09-21-2017 Patient encounter no information no name (no phone) no organization name (no phone) NEGATED Patient encounter no information no name (no phone) no organization name 06-15-2017 (no phone) 05-29-2016 Patient encounter no information no name (no phone) no organization name - (no phone) 05-29-2016 06-30-2019 Patient encounter Other chronic pain Shana Li (no [facility] procedure phone) Clinic (no phone) 06-20-2019 Patient encounter Other chronic pain Shana Li (no [facility] procedure phone) Clinic (no phon e) 06-20-2019 - 06-20-2019 06-13-2019 Patient encounter no information Shana Li (no [facility] procedure phone) Clinic (no phon e) 06-13-2019 - 06-13-2019 06-05-2019 Patient encounter no information Shana Li (no [facility] procedure phone) Clinic (no phon e) 06-05-2019 - 06-05-2019 05-28-2019 Patient encounter no information Shana Li (no [facility] procedure phone) Clinic (no phon e) 05-28-2019 - 05-28-2019 05-20-2019 Patient encounter Other chronic pain Shana Li (no [facility] procedure phone) Clinic (no phon e) 05-20-2019 - 05-20-2019 05-09-2019 Patient encounter Other chronic pain Shana Li (no [facility] procedure phone) Clinic (no phon e) 05-09-2019 - 05-09-2019 05-02-2019 Patient encounter Other chronic pain Shana Li (no [facility] procedure phone) Clinic (no phon e) 05-02-2019 - 05-02-2019 04-21-2019 Patient encounter no information Araseli Bryan (no [facility] - procedure phone) Clinic (no phon e) 04-21-2019 - 04-21-2019 04-19-2019 Patient encounter Other chronic pain Shana Li (no [facility] procedure phone) Clinic (no phon e) 04-19-2019 - 04-19-2019 04-11-2019 Patient encounter Other chronic pain (no phone) [facility] - procedure Li (no phone) [facility] [employer] [facility] 04-11-2019 (no phone) [facility] (no 04-11-2019 phone) 03-31-2019 Patient encounter no information Shana Li (no [facility] - procedure phone) Clinic (no phon e) 03-31-2019 - 03-31-2019 03-27-2019 Patient encounter Other chronic pain Araseli Alexandria (no [facility] - procedure phone) [facility] (n o phone) 03-27-2019 (no phone) - 03-27-2019 03-25-2019 Patient encounter no information Araseli Alexandria (no [facility] - procedure phone) Clinic (no phon e) 03-25-2019 - 03-25-2019 03-18-2019 Patient encounter Other chronic pain Shana Li (no [facility] - procedure phone) Clinic (no phon e) 03-18-2019 - 03-18-2019 03-10-2019 Patient encounter Other chronic pain Shana Li (no [facility] - procedure phone) Clinic (no phon e) 03-10-2019 - 03-10-2019 02-24-2019 Patient encounter Other chronic pain Araseli Alexandria (no [facility] - procedure phone) [facility] (n o phone) 02-24-2019 (no phone) - 02-24-2019 02-13-2019 Patient encounter Other chronic pain Veronika Brunner (no phone) [facility] - procedure Clinic (no phone) 02-13-2019 - 02-13-2019 02-03-2019 Patient encounter Other chronic pain Shana Li (no [facility] - procedure phone) Clinic (no phon e) 02-03-2019 - 02-03-2019 01-23-2019 Patient encounter Other chronic pain Shana Li (no [facility] - procedure phone) Clinic (no phon e) 01-23-2019 - 01-23-2019 01-10-2019 Patient encounter Asymptomatic human [facility]eli Blas [facility] virus [facility]) (no phone) 01-10-2019 [HIV] infection status - 01-10-2019 01-01-2019 Patient encounter Other chronic pain Shana Li (no [facility] - procedure phone) Clinic (no phon e) 01-01-2019 - 01-01-2019 12-27-2018 Patient encounter Other chronic pain Shana Li (no [facility] - procedure phone) Clinic (no phon e) 12-27-2018 - 12-27-2018 12-18-2018 Patient encounter Other chronic pain Shana Li (no [facility] - procedure phone) Clinic (no phon e) 12-18-2018 - 12-18-2018 12-04-2018 Patient encounter Other chronic pain Araseli Blas Samuel (no [facility] - procedure phone) Clinic (no phon e) 12-04-2018 - 12-04-2018 11-22-2018 Patient encounter Other chronic pain Shana Li (no [facility] - procedure phone) Clinic (no phon e) 11-22-2018 - 11-22-2018 11-15-2018 Patient encounter Other chronic pain Shana Li (no [facility] - procedure phone) Clinic (no phon e) 11-15-2018 - 11-15-2018 10-31-2018 Patient encounter Other chronic pain Veronika Brunner (no phone) [facility] - procedure Clinic (no phone) 10-31-2018 - 10-31-2018 10-22-2018 Patient encounter Other chronic pain Shana Li (no [facility] - procedure phone) Clinic (no phon e) 10-22-2018 - 10-22-2018 10-18-2018 Patient encounter Other chronic pain Araseli Blas Samuel (no [facility] - procedure phone) Clinic (no phon e) 10-18-2018 - 10-18-2018 10-07-2018 Patient encounter Other chronic pain Shana Li (no [facility] - procedure phone) Clinic (no phon e) 10-07-2018 - 10-07-2018 09-25-2018 Patient encounter Other chronic pain Shana Li (no [facility] - procedure phone) Clinic (no phon e) 09-25-2018 - 09-25-2018 09-19-2018 Patient encounter Other chronic pain Shana Li (no [facility] - procedure phone) Clinic (no phon e) 09-19-2018 - 09-19-2018 09-13-2018 Patient encounter Asymptomatic human Shana Li (no [facility] - procedure immunodeficiency virus phone) (no phone) 09-13-2018 [HIV] infection status - 09-13-2018 09-10-2018 Patient encounter Anorexia Araseli Bryan (no [facility] - procedure phone) [facility] (n o phone) 09-10-2018 (no phone) - 09-10-2018 09-02-2018 Patient encounter Other chronic pain Araseli Bryan (no [facility] - procedure phone) Clinic (no phon e) 09-02-2018 - 09-02-2018 08-20-2018 Patient encounter Other chronic pain Araseli Alexandria (no [facility] - procedure phone) Clinic (no phon e) 08-20-2018 - 08-20-2018 08-08-2018 Patient encounter Other chronic pain Araseli Bryan (no [facility] - procedure phone) Clinic (no phon e) 08-08-2018 - 08-08-2018 07-30-2018 Patient encounter Other chronic pain Araseli Alexandria (no [facility] - procedure phone) Clinic (no phon e) 07-30-2018 - 07-30-2018 07-23-2018 Patient encounter Other chronic pain Araseli Alexandria (no [facility] - procedure phone) Clinic (no phon e) 07-23-2018 - 07-23-2018 07-13-2018 Patient encounter no information Araseli Bryan (no [facility] - procedure phone) Clinic (no phon e) 07-13-2018 - 07-13-2018 07-09-2018 Patient encounter Other chronic pain Araseli Bryan (no [facility] - procedure phone) Clinic (no phon e) 07-09-2018 - 07-09-2018 07-01-2018 Patient encounter Other chronic pain Araseli Bryan (no [facility] - procedure phone) [facility] (n o phone) 07-01-2018 (no phone) - 07-01-2018 06-20-2018 Patient encounter no information Shana Li (no [facility] - procedure phone) Clinic (no phon e) 06-20-2018 - 06-20-2018 06-10-2018 Patient encounter Other chronic pain Shana Li (no [facility] - procedure phone) Clinic (no phon e) 06-10-2018 - 06-10-2018 06-07-2018 Patient encounter no information [facility] PAUL[facility] 06-07-2018 - 06-07-2018 05-27-2018 Patient encounter Other chronic pain Araseli Bryan (no [facility] - procedure phone) Clinic (no phon e) 05-27-2018 - 05-27-2018 05-17-2018 Patient encounter no information no name (no phone) no organization name procedure (no phone) 05-17-2018 Patient encounter no information no name (no phone) no organization name procedure (no phone) 05-14-2018 Patient encounter no information Shana Li (no [facility] - procedure phone) Clinic (no phon e) 05-14-2018 - 05-14-2018 05-13-2018 Patient encounter no information Araseli Bryan (no [facility] - procedure phone) Clinic (no phon e) 05-13-2018 - 05-13-2018 05-09-2018 Patient encounter no information no name (no phone) no organization name procedure (no phone) 05-08-2018 Patient encounter no information Shana Li (no [facility] - procedure phone) Clinic (no phon e) 05-08-2018 - 05-08-2018 05-07-2018 Patient encounter no information Araseli Bryan (no [facility] - procedure phone) Clinic (no phon e) 05-07-2018 - 05-07-2018 05-02-2018 Patient encounter no information Shana Li (no [facility] - procedure phone) Clinic (no phon e) 05-02-2018 - 05-02-2018 04-30-2018 Patient encounter no information Araseli Alexandria (no [facility] - procedure phone) Clinic (no phon e) 04-30-2018 - 04-30-2018 04-29-2018 Patient encounter no information Araseli Alexandria (no [facility] - procedure phone) Clinic (no phon e) 04-29-2018 - 04-29-2018 04-25-2018 Patient encounter no information Araseli Alexandria (no [facility] - procedure phone) Clinic (no phon e) 04-25-2018 - 04-25-2018 04-24-2018 Patient encounter Other chronic pain Araseli Alexandria (no [facility] - procedure phone) Clinic (no phon e) 04-24-2018 - 04-24-2018 04-23-2018 Patient encounter no information Araseli Bryan (no [facility] - procedure phone) Clinic (no phon e) 04-23-2018 - 04-23-2018 04-19-2018 Patient encounter Asymptomatic human Araseli Bryan (no [facility] - procedure immunodeficiency virus phone) FRANKI FRED Moreno (no (no phone) 04-19-2018 [HIV] infection status phone) - 04-19-2018 04-18-2018 Patient encounter no information Araseli Bryan (no [facility] - procedure phone) Clinic (no phon e) 04-18-2018 - 04-18-2018 04-16-2018 Patient encounter no information Araseli Bryan (no [facility] - procedure phone) Clinic (no phon e) 04-16-2018 - 04-16-2018 04-15-2018 Patient encounter no information Araseli Alexandria (no [facility] - procedure phone) Clinic (no phon e) 04-15-2018 - 04-15-2018 04-10-2018 Patient encounter Other chronic pain Araseli Bryan (no [facility] - procedure phone) Clinic (no phon e) 04-10-2018 - 04-10-2018 04-03-2018 Patient encounter Hope Li (no [facility] - procedure phone) Clinic (no phon e) 04-03-2018 - 04-03-2018 04-01-2018 Patient encounter Other chronic pain Araseli Blas Samuel (no [facility] - procedure phone) [facility] (n o phone) 04-01-2018 (no phone) - 04-01-2018 03-28-2018 Patient encounter no information Araseli Adams (no [facility] - procedure phone) Clinic (no phon e) 03-28-2018 - 03-28-2018 03-27-2018 Patient encounter no information Shana Li (no [facility] - procedure phone) Clinic (no phon e) 03-27-2018 - 03-27-2018 03-20-2018 Patient encounter Other chronic pain Shana Li (no [facility] - procedure phone) Clinic (no phon e) 03-20-2018 - 03-20-2018 03-12-2018 Patient encounter Other chronic pain Shana Li (no [facility] - procedure phone) Clinic (no phon e) 03-12-2018 - 03-12-2018 03-09-2018 Patient encounter no information no name (no phone) no organization name procedure (no phone) 03-09-2018 Patient encounter no information no name (no phone) no organization name procedure (no phone) 03-05-2018 Patient encounter no information Shana Li (no [facility] - procedure phone) Clinic (no phon e) 03-05-2018 - 03-05-2018 03-01-2018 Patient encounter Other chronic pain Shana Li (no [facility] - procedure phone) Clinic (no phon e) 03-01-2018 - 03-01-2018 02-19-2018 Patient encounter Other chronic pain Shana Li (no [facility] - procedure phone) Clinic (no phon e) 02-19-2018 - 02-19-2018 02-08-2018 Patient encounter Asymptomatic human Shana Li (no [facility] - procedure immunodeficiency virus phone) FRANKI Moreno (no (no phone) 02-08-2018 [HIV] infection status phone) Shana Tyler guzman - (no phone) FRANKI MITCHELL 02-08-2018 (no phone) 01-30-2018 Patient encounter Other chronic pain Shana Li (no [facility] - procedure phone) Clinic (no phon e) 01-30-2018 - 01-30-2018 01-18-2018 Patient encounter Other chronic pain Shana Li (no [facility] - procedure phone) Clinic (no phon e) 01-18-2018 - 01-18-2018 05-25-2016 Patient encounter no information no name (no phone) no organization name - procedure (no phone) 05-25-2016 01-17-2016 Patient encounter no information no name (no phone) no organization name - procedure (no phone) 04-13-2016 03-12-2018 Telephone encounter Asymptomatic human Shana mccall (no [facility] - immunodeficiency virus phone) Care (n o phone) 03-12-2018 [HIV] infection status - 03-12-2018 03-11-2018 Telephone encounter no information Shana Li (n o [facility] (no - phone) phone) 03-11-2018 - 03-11-2018 02-08-2018 Telephone encounter Other chronic pain Shana mccall (no [facility] - phone) Care (no phone) 02-08-2018 - 02-08-2018 no information Encounter for other no name (no phone) no org anization name preprocedural (no phone) examination Medical Equipment No Information Payers Normalized Payer Value [facility] [id number] ([id number]) History general Narrative - Reported Note Type Note Facility History general Narrative - Reported Type Medical HIV History Medical Colitis History Medical chronic pain History Medical depression History Surgical No Surgical history informa tion History [facility] ([id number]) History general Narrative - Reported Note Type Note Facility History general Narrative - Reported Type Medical HIV History Medical Colitis History Medical chronic pain History Medical depression History Surgical No know Surgical history History [facility] ([id number]) History general Narrative - Reported Note Type Note Facility History general Narrative - Reported Type Medical Bipolar disorder, unspecifi ed History Medical Asymptomatic human immunode ficiency virus (HIV) infection status History [facility] ([id number]) Summary Purpose eClinicalWorks SubmissioneClinicalWorks SubmissioneClinicalWorks SubmissioneClinicalWorks SubmissioneClinicalWorks SubmissioneClinicalWorks Submission Advance Directives Directive Response Recor ded Date/Time Advance Directives No 2:43pm Organ Donor No 01/17/16 2:43pm Resuscitation Status Full Code 01/17/16 2:43pm Directive Response Recor ded Date/Time Advance Directives No 11:05am Organ Donor No 05/29/16 11:05am Discharge Instructions No hospital discharge instructions.No hospital discharge instruction information available. Chief Complaint and Reason for Visit Chief Complaint Lower Extremity Reason for Visit Sprain of knee Additional Source Comments This clinical document has been generated using [employer] software that has been certified by the Office of the National Coordinator for Health Information Technology (ONC 15.99.04.3023.Diam.31.00.0.348390) and the National Committee for Window As[employer]er (NCQA, as an eMeasure certified technology). FOR RECORDS PERTAINING TO PATIENTS WHO ARE OR HAVE BEEN ENROLLED IN A CHEMICAL D EPENDENCY/SUBSTANCE ABUSE PROGRAM, SOME INFORMATION MAY BE OMITTED. This clinica l summary was aggregated from multiple sources. Caution should be exercised in using it in the provision of clinical care. This summary normalizes information from multiple sources, and as a consequence, information in this document may ma terially change the coding, format and clinical context of patient data. In roseann tion, data may be omitted in some cases. CLINICAL DECISIONS SHOULD BE BASED ON T HE PRIMARY CLINICAL RECORDS. [employer] provides no warranty or guara ntee of the accuracy or completeness of information in this document.The followi ng information is based on time limited clinical information UNRECOGNIZED CONTENT PROVIDED BELOW FOR UNRECOGNIZED SECTION MEDICAL (GENERAL) HISTORY Type Description Date Medical History Bipolar disorder, un specified Medical History Asymptomatic human i mmunodeficiency virus (HIV) infection status Type Description Date Medical History HIV Medical History Colitis Medical History chronic pain Medical History depression Type Description Date Medical History HIV Medical History Colitis Medical History chronic pain Medical History depression Surgical History No Surgical history information Type Description Date Medical History HIV Medical History Colitis Medical History chronic pain Medical History depression Surgical History No know Surgical history UNRECOGNIZED CONTENT PROVIDED BELOW FOR UNRECOGNIZED SECTION REASON FOR VISIT prescription requestHIV f/uprescription request script request script request sc ript request script request hiv f/u[facility] Clinicscript request my body achesEMR-M igscript request script request script request script request thanks script requ est thanksEMR-Migthank uscript request med request script request EMR-Migstool s ample dropped off/ should be mailed by pt /..sent to [employer] ..script request mily t request thank you pt here for follow upscript request RX not signed script req uest script request script request script requestscript requestscript requestscr ipt requestscript requestscript requestscript requestscript requestdronabinol [facility] f/uscript request script requestfax from pharmacy [place] ript requests call pharmacyscript requestthanksscript requests script requests ript requests script requests script requests script requests script requests sc ript requests
--- OUTSIDE RECORDS SUMMARY | 2019-07-04 11:53 | XMS REPORT ---
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 20 Active 600069616 Problem Other chronic pain G89.29 Active 8 0712578 Problem Asymptomatic human immunodeficiency virus (HIV) infect ion status Z21 Active 72930346 Problem GERD with esophagitis K21.0 Active 408041964 Problem Functional diarrhea K59.1 Active 05168829 Problem Major depressive disorder, recurrent, moderate F33 .1 Active 565996597 Problem Loss of appetite R63.0 Active 798 61378 ALLERGIES No Information ENCOUNTERS Encounter Location Date Diagnosis [address] [address] Jun, Other chronic pain G89.[address] [address] Jun, [address] [address] Jun, [address] [address] May, [address] [address] May, Other chronic pain G89.[address] [place] [address] May, Other chronic pain G89.29 [facility] [address] [place] [address] Apr, Other chronic pain G89.29 [facility] [address] [place] [address] 17 Apr, 2019 [facility] [address] [place] [address] 15 Apr, 2019 Other chronic pain G89.29 [facility] [address] [place] [id number] 07 Apr, 2019 Other chronic pain G89.29 and Asymptomat ic human immunodeficiency virus (HIV) infection status Z21 [facility] [address] [place] [address] Mar, [facility] [address] [place] [address] Mar, Other chronic pain G89.29 [facility] [address] [place] [address] Mar, [facility] [address] [place] [address] Mar, [facility] [address] [place] [address] Mar, Other chronic pain G89.29 [facility] [address] [place] [address] Mar, Other chronic pain G89.29 [facility] [address] [place] [address] Feb, Loss of appetite R63.0 [facility] [address] [place] [address] Feb, Other chronic pain G89.29 [facility] [address] [place] [address] Feb, Other chronic pain G89.29 [facility] [address] [place] [address] Feb, Other chronic pain G89.29 [facility] [address] [place] [address] Jan, Other chronic pain G89.29 [facility] [address] [place] [id number] Jan, Asymptomatic human immunodeficiency viru s (HIV) infection status Z21 ; GERD with esophagitis K21.0 ; Influenza vaccine needed Z23 and Other chronic pain G89.29 [facility] [address] [place] [address] Dec, Other chronic pain G89.29 [facility] [address] [place] [address] Dec, Other chronic pain G89.29 [facility] [address] [place] [address] Dec, Other chronic pain G89.29 [facility] [address] [place] [address] Dec, Other chronic pain G89.29 [facility] [address] [place] [address] Nov, Other chronic pain G89.29 [facility] [address] [place] [address] Nov, Other chronic pain G89.29 [facility] [address] [place] [facility] [place] [address] Oct, Other chronic pain G89.29 [facility] [address] [place] [address] Oct, Other chronic pain G89.29 [facility] [address] [place] [address] Oct, Other chronic pain G89.29 [facility] [address] [place] [address] Oct, Other chronic pain G89.29 [facility] [address] [place] [facility] [place] [address] Sep, Other chronic pain G89.29 [facility] [address] [place] [address] Sep, Other chronic pain G89.29 [facility] [address] [place] [id number] Sep, Asymptomatic human immunodeficiency viru s (HIV) infection status Z21 and GERD with esophagitis K21.0 [facility] [address] [place] [facility] [place] [address] Sep, [facility] [address] [place] [facility] [place] [address] Sep, Loss of appetite R63.0 and Other chronic pain G89.29 [facility] [address] [place] [facility] [place] [address] Sep, Other chronic pain G89.29 [facility] [address] [place] [facility] [place] [address] Aug, Other chronic pain G89.29 [facility] [address] [place] [facility] [place] [address] Aug, Other chronic pain G89.29 [facility] [address] [place] [facility] [place] [address] July, Other chronic pain G89.29 [facility] [address] [place] [facility] [place] [address] July, [facility] [address] [place] [facility] [place] [address] July, [facility] [address] [place] [facility] [place] [address] July, Other chronic pain G89.29 [facility] [address] [place] [facility] [place] [address] July, [facility] [address] [place] [facility] [place] [address] July, Other chronic pain G89.29 [facility] [address] [place] [facility] [place] [address] Jun, [facility] [address] [place] [facility] [place] [address] Jun, Other chronic pain G89.29 [facility] [address] [place] [facility] [place] [address] Jun, [facility] [address] [place] [facility] [place] [address] Jun, Other chronic pain G89.29 [facility] [address] [place] [facility] [place] [facility] [place] [address] May, Other chronic pain G89.29 [facility] [address] [place] [facility] [place] [address] May, [facility] [address] [place] [facility] [place] [address] May, [facility] [address] [place] [facility] [place] [address] May, [facility] [address] [place] [facility] [place] [address] May, [facility] [address] [place] [facility] [place] [facility] [place] [address] May, [facility] [address] [place] [facility] [place] [address] Apr, [facility] [address] [place] [facility] [place] [address] Apr, [facility] [address] [place] [facility] [place] [address] Apr, [facility] [address] [place] [facility] [place] [address] Apr, [facility] [address] [place] [facility] [place] [address] Apr, [facility] [address] [place] [facility] [place] [address] Apr, [facility] [address] [place] [address] Apr, [facility] [address] [place] [facility] [place] [facility] [place] [address] Apr, [facility] [address] [place] [facility] [place] [address] Apr, [facility] [address] [place] [facility] [place] [facility] [place] [address] Apr, Other chronic pain G89.29 [facility] [address] [place] [facility] [place] [address] Apr, [facility] [address] [place] [id number] 15 Apr, 2018 Asymptomatic human immunodeficiency viru s (HIV) infection status Z21 ; Other chronic pain G89.29 and Screening for cardiovascular condition Z13.6 [facility] [address] [place] [address] 14 Apr, 2018 [facility] [address] [place] [address] 12 Apr, 2018 [facility] [address] [place] [address] Apr, [facility] [address] [place] [address] Apr, Other chronic pain G89.29 [facility] [address] [place] [address], [place] [address] Mar, Loss of appetite R63.0 [facility] [address] [place] [address] Mar, [facility] [address] [place] [address] Mar, [facility] [address] [place] [address] Mar, [facility] [address] [place] [address] Mar, [facility] [address] [place] [address] Mar, Other chronic pain G89.29 [facility] [address] [place] [address] Mar, [facility] [address] [place] [address] Mar, [facility] [address] [place] [address] Mar, [facility] [address] [place] [address] Mar, Other chronic pain G89.29 [facility] [address] [place] [address], S [id number] Mar, Asymptomatic human immunodeficiency viru s (HIV) infection status Z21 [facility] [address] [place] [address] Mar, Other chronic pain G89.29 [facility] [address] [place] [address] Mar, [facility] [address] [place] [address] Mar, [facility] [address] [place] [address] Feb, Other chronic pain G89.29 [facility] [address] [place] [address] Feb, Other chronic pain G89.29 [facility] [address] [facility] [place] [id number] Feb, Other chronic pain G89.29 [facility] [address] [place] [id number] Feb, Asymptomatic human immunodeficiency viru s (HIV) infection status Z21 and Other chronic pain G89.29 [facility] [address] [place] [address] Jan, Other chronic pain G89.29 [facility] [address] [place] [address] Jan, Other chronic pain G89.29 [facility] [address] [place] [address] Jan, Asymptomatic human immunodeficiency viru s (HIV) infection status Z21 [facility] [address] [place] [address] Jan, Other chronic pain G89.29 [facility] [address] [place] [address] Jan, [facility] [address] [place] [address] Dec, Other chronic pain G89.29 [facility] [address] [place] [address] Dec, Other chronic pain G89.29 [facility] [address] [place] [id number] Nov, Asymptomatic human immunodeficiency viru s (HIV) infection status Z21 ; Influenza vaccine needed Z23 and Other chronic pain G89.29 [facility] [address] [place] [address] 05 Nov, 2017 Other chronic pain G89.29 [facility] [address] [place] [address] 16 Oct, 2017 [facility] [address] [place] [address] Oct, Other chronic pain G89.29 [facility] [address] [place] [address] 08 Oct, 2017 [facility] [address] [place] [id number] Sep, Asymptomatic human immunodeficiency viru s (HIV) infection status Z21 ; Other chronic pain G89.29 and Generalized anxiety disorder F41.1 [facility] [address] [place] [address] Jun, [facility] [address] [place] [address] Jun, [facility] [address] [place] [address] Jun, [address] [phone] Jun, Asymptomatic human immunodeficiency viru s (HIV) infection status Z21 ; Need for pneumococcal vaccine Z23 ; Major depressive disorder, recurrent, moderate F33.1 ; Loss of appetite R63.0 ; Other chronic pain G89.29 ; Other and unspecified noninfectious gastroenteritis and colitis K52.9 and Nausea R11.0 [facility] [address] [place] [address] Jun, [facility] [address] [place] [address] Jun, Acute right ankle pain M25.[address] [address] May, [facility] [address] [place] [address] May, Acute right ankle pain M25.571 [facility] [address] [place] [address] Apr, [facility] [address] [place] [facility] [place] [address] Apr, [facility] [address] [place] [address] Mar, Acute right ankle pain M25.571 [facility] [address] [place] [facility] [place] [address] Mar, [facility] [address] [place] [address] Mar, [facility] [address] [place] [facility] [place] [address] Mar, [facility] [address] [place] [address] Mar, [facility] [address] [place] [facility] [place] [address] Mar, [facility] [address] [place] [address] Mar, Nausea and vomiting, intractability of v omiting not specified, unspecified vomiting type R11.2 [facility] [address] [place] [address] Mar, [facility] [address] [place] [address] Mar, Loss of appetite R63.0 [facility] [address] [place] [address] Mar, [facility] [address] [place] [address] Mar, [facility] [address] [place] [address] Mar, [facility] [address] [place] [address] Feb, Abscess L02.91 [facility] [address] [place] [address] Feb, Acute right ankle pain M25.571 [facility] [address] [place] [address] Feb, [facility] [address] [place] [address] Feb, [facility] [address] [place] [address] Feb, [facility] [address] [place] [address] Feb, Acute right ankle pain M25.571 [facility] [address] [place] [address] Feb, Abscess L02.91 [facility] [address] [place] [id number] Jan, Asymptomatic human immunodeficiency viru s (HIV) infection status Z21 ; Influenza vaccine needed Z23 and Acute right ankle pain M25.571 [facility] [address] [place] [address] Jan, Abscess L02.91 [facility] [address] [place] [address] Nov, [facility] [address] [place] [address] Nov, Abscess L02.91 [facility] [address] [place] [address] Nov, Anxiety F41.9 [facility] [address] [place] [address] Nov, Acute right ankle pain M25.571 [facility] [address] [place] [address] 15 Nov, 2016 [facility] [address] [place] [address] 14 Nov, 2016 [facility] [address] [place] [address] 14 Nov, 2016 Hiccups R06.6 [facility] [address] [place] [address] 13 Nov, 2016 [facility] [address] [place] [address] 08 Nov, 2016 [facility] [address] [place] [address] Nov, [facility] [address] [place] [facility] [place] [address] Nov, [facility] [address] [place] [facility] [place] [address] Nov, [facility] [address] [place] [facility] [place] [address] Nov, [facility] [address] [place] [facility] [place] [address] Oct, [facility] [address] [place] [facility] [place] [address] Oct, [facility] [address] [place] [facility] [place] [address] Oct, [facility] [address] [place] [facility] [place] [address] Oct, Abscess L02.91 [facility] [address] [place] [facility] [place] [address] Oct, [facility] [address] [place] [facility] [place] [facility] [place] [address] Oct, [facility] [address] [place] [facility] [place] [address] Oct, [facility] [address] [place] [facility] [place] [address] Oct, Abscess L02.91 and Acute right ankle ta n M25.571 [facility] [address] [place] [facility] [place] [address] Oct, [facility] [address] [place] [facility] [place] [address] Oct, [facility] [address] [place] [facility] [place] [address] Oct, Abscess L02.91 [facility] [address] [place] [facility] [place] [address] Oct, [facility] [address] [place] [facility] [place] [address] Oct, [facility] [address] [place] [id number] Oct, Asymptomatic human immunodeficiency viru s (HIV) infection status Z21 ; 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 ; Nicotine dependence, cigarettes, uncomplicated F17.210 ; Iron deficiency anemia due to chronic blood loss D50.0 ; GERD with esophagitis K21.0 ; Major depressive disorder, recurrent, moderate F33.1 and Generalized anxiety disorder F41.1 [facility] [address] [place] [address] Sep, Major depressive disorder, recurrent, mo derate F33.1 [facility] [address] [place] [address] Sep, [facility] [address] [place] [address] Sep, [facility] [address] [place] [address] Sep, [facility] [address] [place] [address] Sep, [facility] [address] [place] [address], [place] [address] Sep, [facility] [address] [place] [address] Aug, [facility] [address] [place] [address] Aug, [facility] [address] [place] [address], [place] [address] Aug, [facility] [address] [place] [address], [place] [address] Aug, Loss of appetite R63.0 ; Major depressiv e disorder, recurrent, moderate F33.1 and Functional diarrhea K59.1 [facility] [address] [place] [address] 05 Aug, 2016 Acute hemorrhoid K64.9 and Other osteoar thritis involving multiple joints M15.8 [facility] [address] [place] [address], [place] [address] Aug, Abscess L02.91 [facility] [address] [place] [address], [place] [address] July, Chronic diarrhea K52.9 [facility] [address] [place] [address], [place] [address] July, [address] [id number] July, Asymptomatic human immunodeficiency viru s (HIV) infection status Z21 ; Nicotine dependence, cigarettes, uncomplicated F17.210 ; Chronic diarrhea K52.9 ; Abscess L02.91 ; GERD with esophagitis K21.0 ; Anxiety F41.9 and 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 [address] Jun, Pain in joint involving multiple sites M 25.[address] [address] Jun, [address] [address] Jun, Pain in joint involving multiple sites M 25.[address] [address] Jun, Pain in joint involving multiple sites M 25.50 ; GERD with esophagitis K21.0 and Intractable hiccups R06.[address] [address] May, Pain in joint involving multiple sites M 25.[address] [address] Apr, Pain in joint involving multiple sites M 25.50 and Anxiety F41.[address] [address] Apr, [address] [address] Apr, Chronic diarrhea K52.9 and Pain in joint involving multiple sites M25.[address] [id number] Apr, Asymptomatic human immunodeficiency viru s (HIV) infection status Z21 ; Mild intermittent asthma without complication J45.20 ; Iron deficiency anemia due to chronic blood loss D50.0 ; Screening, lipid Z13.220 ; Chronic diarrhea K52.9 ; Abscess L02.91 and Projectile vomiting with nausea R11.[address] [place] [address] Feb, Acute hemorrhoid K64.9 [facility] [address] [place] [address] Jan, [facility] [address] [place] [address] Jan, Nausea and vomiting, intractability of v omiting not specified, unspecified vomiting type R11.2 and Acute right ankle pain M25.571 [facility] [address] [place] [address] Jan, [facility] [address] [place] [address] 09 Jan, 2016 Asymptomatic human immunodeficiency viru s (HIV) infection status Z21 ; Iron deficiency anemia due to chronic blood loss D50.0 and Generalized abdominal pain R10.84 [facility] [address] [place] [id number] Dec, Asymptomatic human immunodeficiency viru s (HIV) infection status Z21 ; Mild intermittent asthma without complication J45.20 ; Influenza vaccine needed Z23 and Nicotine dependence, cigarettes, uncomplicated F17.210 [facility] [address] [place] [id number] 2 9 Oct, 2013 [facility] [address] [id number] 2 8 Oct, 2013 [facility] [address] [place] [address] 08 May, 2012 [facility] [address] [place] [address] Feb, [facility] [address] [place] [address] Nov, [facility] [address] [place] [address] Aug, [facility] [address] [place] [address] Apr, [facility] [address] [facility] [address] [place] [id number] Jan, IMMUNIZATIONS No Known Immunizations SOCIAL HISTORY Never Assessed REASON FOR VISIT script requests PLAN OF CARE VITAL SIGNS MEDICATIONS Medication Instructions Dosage Frequency Start Date End Date Duration S tatus Percocet 7.5-325 mg Orally every 6 hrs 1 tablet as needed 6h Jun, 7 days Active RESULTS No Results PROCEDURES No Known procedures INSTRUCTIONS MEDICATIONS ADMINISTERED No Known Medications MEDICAL (GENERAL) HISTORY Type Description Date Medical History HIV Medical History Colitis Medical History chronic pain Medical History depression Surgical History No know Surgical history
--- OUTSIDE RECORDS SUMMARY | 2019-07-04 11:53 | XMS REPORT ---
Author Author ARTEMIO Li Organization [facility] Address [address] [place] [id number] Care Team Providers Care Residency Coordinator Name Role Phone Shana Li Unavailable PROBLEMS Type Condition ICD9-CM Code ROB38-UL Code Onset Dates Condition S tatus SNOMED Code Problem Nicotine dependence, cigarettes, uncomplicated F17 .210 Active 24916936 Problem Iron deficiency anemia due to chronic blood loss D 50.0 Active 03176337 Problem Other osteoarthritis involving multiple joints M15 .8 Active 566595747 Problem Generalized anxiety disorder F41.1 A ctive 40453704 Problem Other and unspecified noninfectious gastroenteritis an d colitis K52.9 Active 45440713 Problem Mild intermittent asthma without complication J45. 20 Active 442463245 Problem Other chronic pain G89.29 Active 8 3132635 Problem Asymptomatic human immunodeficiency virus (HIV) infect ion status Z21 Active 46461833 Problem GERD with esophagitis K21.0 Active 381963093 Problem Functional diarrhea K59.1 Active 42720398 Problem Major depressive disorder, recurrent, moderate F33 .1 Active 748951832 Problem Loss of appetite R63.0 Active 798 05201 ALLERGIES No Information ENCOUNTERS Encounter Location Date Diagnosis [address] [address] Jun, Other chronic pain G89.[address] [address] Jun, Other chronic pain G89.[address] [address] Jun, [address] [address] Jun, [address] [address] May, [address] [place] [address] May, Other chronic pain G89.29 [facility] [address] [place] [address] May, Other chronic pain G89.29 [facility] [address] [place] [address] Apr, Other chronic pain G89.29 [facility] [address] [place] [address] 17 Apr, 2019 [facility] [address] [place] [address] 15 Apr, 2019 Other chronic pain G89.29 [facility] [address] [place] [id number] 07 Apr, 2019 Other chronic pain G89.29 and Asymptomat ic human immunodeficiency virus (HIV) infection status Z21 [facility] [address] [place] [address] Mar, [facility] [address] [place] [address] Mar, Other chronic pain G89.29 [facility] [address] [place] [address] Mar, [facility] [address] [place] [address] Mar, [facility] [address] [place] [address] Mar, Other chronic pain G89.29 [facility] [address] [place] [address] Mar, Other chronic pain G89.29 [facility] [address] [place] [address] Feb, Loss of appetite R63.0 [facility] [address] [place] [address] Feb, Other chronic pain G89.29 [facility] [address] [place] [address] Feb, Other chronic pain G89.29 [facility] [address] [place] [address] Feb, Other chronic pain G89.29 [facility] [address] [place] [address] Jan, Other chronic pain G89.29 [facility] [address] [id number] Jan, Asymptomatic human immunodeficiency viru s (HIV) infection status Z21 ; GERD with esophagitis K21.0 ; Influenza vaccine needed Z23 and Other chronic pain G89.29 [facility] [address] [place] [address] Dec, Other chronic pain G89.29 [facility] [address] [place] [address] Dec, Other chronic pain G89.29 [facility] [address] [place] [address] Dec, Other chronic pain G89.29 [facility] [address] [place] [address] Dec, Other chronic pain G89.29 [facility] [address] [place] [address] Nov, Other chronic pain G89.29 [facility] [address] [place] [address] Nov, Other chronic pain G89.29 [facility] [address] [place] [address] Oct, Other chronic pain G89.29 [facility] [address] [place] [address] Oct, Other chronic pain G89.29 [facility] [address] [place] [address] Oct, Other chronic pain G89.29 [facility] [address] [place] [address] Oct, Other chronic pain G89.29 [facility] [address] [place] [address] Sep, Other chronic pain G89.29 [facility] [address] [place] [address] Sep, Other chronic pain G89.29 [facility] [address] [place] [id number] Sep, Asymptomatic human immunodeficiency viru s (HIV) infection status Z21 and GERD with esophagitis K21.0 [facility] [address] [place] [address] Sep, [facility] [address] [place] [address] Sep, Loss of appetite R63.0 and Other chronic pain G89.29 [facility] [address] [place] [address] Sep, Other chronic pain G89.29 [facility] [address] [place] [address] Aug, Other chronic pain G89.29 [facility] [address] [place] [address] Aug, Other chronic pain G89.29 [facility] [address] [place] [facility] [address] July, Other chronic pain G89.29 [facility] [address] [place] [address] July, [facility] [address] [place] [address] July, [facility] [address] [place] [address] July, Other chronic pain G89.29 [facility] [address] [place] [address] July, [facility] [address] [place] [address] July, Other chronic pain G89.29 [facility] [address] [place] [facility] [address] Jun, [facility] [address] [place] [address] Jun, Other chronic pain G89.29 [facility] [address] [place] [address] Jun, [facility] [address] [place] [address] Jun, Other chronic pain G89.29 [facility] [address] [place] [address] May, Other chronic pain G89.29 [facility] [address] [place] [address] May, [facility] [address] [place] [address] May, [facility] [address] [place] [address] May, [facility] [address] [place] [address] May, [facility] [address] [place] [address] May, [facility] [address] [place] [address] Apr, [facility] [address] [place] [address] Apr, [facility] [address] [place] [address] Apr, [facility] [address] [place] [address] Apr, [facility] [address] [place] [address] Apr, [facility] [address] [place] [address] Apr, [facility] [address] [place] [address] Apr, [facility] [address] [place] [address] Apr, [facility] [address] [place] [address] Apr, [facility] [address] [place] [address] Apr, Other chronic pain G89.29 [facility] [address] [facility] [address] Apr, [facility] [address] [place] [id number] 15 Apr, 2018 Asymptomatic human immunodeficiency viru s (HIV) infection status Z21 ; Other chronic pain G89.29 and Screening for cardiovascular condition Z13.6 [facility] [address] [place] [address] Apr, [facility] [address] [place] [address] Apr, [facility] [address] [place] [address] Apr, [facility] [address] [place] [address] Apr, Other chronic pain G89.29 [facility] [address] [place] [address] Mar, Loss of appetite R63.0 [facility] [address] [place] [address] Mar, [facility] [address] [place] [address] Mar, [facility] [address] [place] [address] Mar, [facility] [address] [place] [address] Mar, [facility] [address] [place] [address] Mar, Other chronic pain G89.29 [facility] [address] [place] [address] Mar, [facility] [address] [place] [address] Mar, [facility] [address] [place] [address] Mar, [facility] [address] [place] [address] Mar, Other chronic pain G89.29 [facility] [address] [place] [address] S [id number] Mar, Asymptomatic human immunodeficiency viru s (HIV) infection status Z21 [facility] [address] [place] [address] Mar, Other chronic pain G89.29 [facility] [address] [place] [address] Mar, [facility] [address] [place] [address] Mar, [facility] [address] [place] [address] Feb, Other chronic pain G89.29 [facility] [address] [place] [address] Feb, Other chronic pain G89.29 [facility] [address] [facility] [place] [id number] Feb, Other chronic pain G89.29 [facility] [address] [place] [id number] Feb, Asymptomatic human immunodeficiency viru s (HIV) infection status Z21 and Other chronic pain G89.29 [facility] [address] [place] [address] Jan, Other chronic pain G89.29 [facility] [address] [place] [address] Jan, Other chronic pain G89.29 [facility] [address] [place] [address] Jan, Asymptomatic human immunodeficiency viru s (HIV) infection status Z21 [facility] [address] [place] [address] Jan, Other chronic pain G89.29 [facility] [address] [place] [address] Jan, [facility] [address] [place] [address] Dec, Other chronic pain G89.29 [facility] [address] [place] [address] Dec, Other chronic pain G89.[address] [id number] Nov, Asymptomatic human immunodeficiency viru s (HIV) infection status Z21 ; Influenza vaccine needed Z23 and Other chronic pain G89.29 [facility] [address] [place] [address] 05 Nov, 2017 Other chronic pain G89.29 [facility] [address] [place] [address] Oct, [facility] [address] [place] [address] Oct, Other chronic pain G89.[address] [address] Oct, [address] [id number] Sep, Asymptomatic human immunodeficiency viru s (HIV) infection status Z21 ; Other chronic pain G89.29 and Generalized anxiety disorder F41.[address] [address] Jun, [facility] [address] [place] [address] Jun, [address] [address] Jun, [address] [id number] Jun, Asymptomatic human immunodeficiency viru s (HIV) infection status Z21 ; Need for pneumococcal vaccine Z23 ; Major depressive disorder, recurrent, moderate F33.1 ; Loss of appetite R63.0 ; Other chronic pain G89.29 ; Other and unspecified noninfectious gastroenteritis and colitis K52.9 and Nausea R11.0 [facility] [address] [place] [address] Jun, [facility] [address] [place] [address] Jun, Acute right ankle pain M25.[address] [address] May, [facility] [address] [place] [address] May, Acute right ankle pain M25.571 [facility] [address] [facility] [address] Apr, [facility] [address] [place] [facility] [facility] [address] Apr, [facility] [address] [place] [address] Mar, Acute right ankle pain M25.571 [facility] [address] [facility] [address] Mar, [facility] [address] [facility] [address] Mar, [facility] [address] [facility] [address] Mar, [facility] [address] [place] [address] Mar, [facility] [address] [place] [address] Mar, [facility] [address] [place] [address] Mar, Nausea and vomiting, intractability of v omiting not specified, unspecified vomiting type R11.2 [facility] [address] [place] [address] Mar, [facility] [address] [place] [address] Mar, Loss of appetite R63.0 [facility] [address] [place] [address] Mar, [facility] [address] [place] [address] Mar, [facility] [address] [place] [address] Mar, [facility] [address] [place] [address] Feb, Abscess L02.91 [facility] [address] [place] [address] Feb, Acute right ankle pain M25.571 [facility] [address] [place] [address] Feb, [facility] [address] [place] [address] Feb, [facility] [address] [place] [address] Feb, [facility] [address] [place] [address] Feb, Acute right ankle pain M25.571 [facility] [address] [place] [address] Feb, Abscess L02.91 [facility] [address] [place] [id number] Jan, Asymptomatic human immunodeficiency viru s (HIV) infection status Z21 ; Influenza vaccine needed Z23 and Acute right ankle pain M25.571 [facility] [address] [place] [address] Jan, Abscess L02.91 [facility] [address] [place] [address] Nov, [facility] [address] [place] [address] Nov, Abscess L02.91 [facility] [address] [place] [address] Nov, Anxiety F41.9 [facility] [address] [place] [address] Nov, Acute right ankle pain M25.571 [facility] [address] [place] [address] 15 Nov, 2016 [facility] [address] [place] [address] 14 Nov, 2016 [facility] [address] [place] [address] 14 Nov, 2016 Hiccups R06.6 [facility] [address] [place] [address] 13 Nov, 2016 [facility] [address] [place] [address] Nov, [facility] [address] [place] [facility] [place] [address] Nov, [facility] [address] [place] [facility] [place] [address] Nov, [facility] [address] [place] [address] Nov, [facility] [address] [place] [facility] [place] [address] Nov, [facility] [address] [place] [facility] [address] Oct, [facility] [address] [place] [facility] [address] Oct, [facility] [address] [place] [facility] [address] Oct, [facility] [address] [place] [facility] [address] Oct, Abscess L02.91 [facility] [address] [place] [facility] [address] Oct, [facility] [address] [place] [address] Oct, [facility] [address] [place] [address] Oct, [facility] [address] [place] [address] Oct, Abscess L02.91 and Acute right ankle ta n M25.571 [facility] [address] [place] [address] Oct, [facility] [address] [place] [facility] [place] [address] Oct, [facility] [address] [place] [facility] [address] Oct, Abscess L02.91 [facility] [address] [place] [address] Oct, [facility] [address] [place] [address] Oct, [address] [id number] Oct, Asymptomatic human immunodeficiency viru s (HIV) infection status Z21 ; USP current use of opiate analgesic Z79.891 ; Nicotine dependence, cigarettes, uncomplicated F17.210 ; Iron deficiency anemia due to chronic blood loss D50.0 ; GERD with esophagitis K21.0 ; Major depressive disorder, recurrent, moderate F33.1 and Generalized anxiety disorder F41.1 [facility] [address] [place] [address] Sep, Major depressive disorder, recurrent, mo derate F33.1 [facility] [address] [place] [address] Sep, [facility] [address] [place] [address] Sep, [facility] [address] [place] [address] Sep, [facility] [address] [place] [address] Sep, [facility] [address] [place] [address] Sep, [facility] [address] [place] [address] Aug, [facility] [address] [place] [address] Aug, [facility] [address] [place] [address] Aug, [facility] [address] [place] [address] Aug, Loss of appetite R63.0 ; Major depressiv e disorder, recurrent, moderate F33.1 and Functional diarrhea K59.1 [facility] [address] [place] [address] Aug, Acute hemorrhoid K64.9 and Other osteoar thritis involving multiple joints M15.8 [facility] [address] [place] [address] Aug, Abscess L02.91 [facility] [address] [place] [address] July, Chronic diarrhea K52.[address] [address] July, [address] [id number] July, Asymptomatic human immunodeficiency viru s (HIV) infection status Z21 ; Nicotine dependence, cigarettes, uncomplicated F17.210 ; Chronic diarrhea K52.9 ; Abscess L02.91 ; GERD with esophagitis K21.0 ; Anxiety F41.9 and 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 [address] Jun, Pain in joint involving multiple sites M 25.[address] [address] Jun, [address] [address] Jun, Pain in joint involving multiple sites M 25.[address] [address] Jun, Pain in joint involving multiple sites M 25.50 ; GERD with esophagitis K21.0 and Intractable hiccups R06.[address] [address] May, Pain in joint involving multiple sites M 25.[address] [address] Apr, Pain in joint involving multiple sites M 25.50 and Anxiety F41.[address] [address] Apr, [address] [address] Apr, Chronic diarrhea K52.9 and Pain in joint involving multiple sites M25.[address] [id number] Apr, Asymptomatic human immunodeficiency viru s (HIV) infection status Z21 ; Mild intermittent asthma without complication J45.20 ; Iron deficiency anemia due to chronic blood loss D50.0 ; Screening, lipid Z13.220 ; Chronic diarrhea K52.9 ; Abscess L02.91 and Projectile vomiting with nausea R11.12 [facility] [address] [place] [address] Feb, Acute hemorrhoid K64.9 [facility] [address] [place] [address] Jan, [facility] [address] [place] [address] Jan, Nausea and vomiting, intractability of v omiting not specified, unspecified vomiting type R11.2 and Acute right ankle pain M25.[address] [address] Jan, [facility] [address] [place] [address] 09 Jan, 2016 Asymptomatic human immunodeficiency viru s (HIV) infection status Z21 ; Iron deficiency anemia due to chronic blood loss D50.0 and Generalized abdominal pain R10.84 [facility] [address] [place] [id number] Dec, Asymptomatic human immunodeficiency viru s (HIV) infection status Z21 ; Mild intermittent asthma without complication J45.20 ; Influenza vaccine needed Z23 and Nicotine dependence, cigarettes, uncomplicated F17.210 [facility] [address] [place] [id number] 2 9 Oct, 2013 [facility] [address] [id number] 2 8 Oct, 2013 [facility] [address] [place] [address] 08 May, 2012 [facility] [address] [place] [address] Feb, [facility] [address] [place] [address] Nov, [facility] [address] [place] [address] Aug, [facility] [address] [place] [address] Apr, [facility] [address] [place] [id number] 1 8 Jan, 2011 IMMUNIZATIONS No Known Immunizations SOCIAL HISTORY Never [...]
--- OUTSIDE RECORDS SUMMARY | 2019-07-04 11:54 | XMS REPORT ---
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 20 Active 707022226 Problem Iron deficiency anemia due to chronic blood loss D 50.0 Active 41989932 Problem Other osteoarthritis involving multiple joints M15 .8 Active 826694488 Problem Asymptomatic human immunodeficiency virus (HIV) infect ion status Z21 Active 67188398 Problem Other and unspecified noninfectious gastroenteritis an d colitis K52.9 Active 78047513 Problem Nicotine dependence, cigarettes, uncomplicated F17 .210 Active 42633847 Problem Other chronic pain G89.29 Active 8 5861140 Problem Generalized anxiety disorder F41.1 A ctive 01919445 Problem GERD with esophagitis K21.0 Active 150765161 Problem Functional diarrhea K59.1 Active 25292737 Problem Major depressive disorder, recurrent, moderate F33 .1 Active 390819107 Problem Loss of appetite R63.0 Active 798 51413 ALLERGIES No Information ENCOUNTERS Encounter Location Date Diagnosis [address] [address] May, Other chronic pain G89.[address] [address] May, Other chronic pain G89.[address] [address] 28 Apr, 2019 Other chronic pain G89.[address] [address] Apr, [address] [address] 15 Apr, 2019 Other chronic pain G89.29 [facility] [address] [place] [id number] 07 Apr, 2019 Other chronic pain G89.29 and Asymptomat ic human immunodeficiency virus (HIV) infection status Z21 [facility] [address] [place] [address] Mar, [facility] [address] [place] [address] Mar, Other chronic pain G89.29 [facility] [address] [place] [address] Mar, [facility] [address] [place] [address] Mar, [facility] [address] [place] [address] Mar, Other chronic pain G89.29 [facility] [address] [place] [address] Mar, Other chronic pain G89.29 [facility] [address] [place] [address] Feb, Loss of appetite R63.0 [facility] [address] [place] [address] Feb, Other chronic pain G89.29 [facility] [address] [place] [address] Feb, Other chronic pain G89.29 [facility] [address] [place] [address] Feb, Other chronic pain G89.29 [facility] [address] [place] [address] Jan, Other chronic pain G89.29 [facility] [address] [place] [id number] Jan, Asymptomatic human immunodeficiency viru s (HIV) infection status Z21 ; GERD with esophagitis K21.0 ; Influenza vaccine needed Z23 and Other chronic pain G89.29 [facility] [address] [place] [address] Dec, Other chronic pain G89.29 [facility] [address] [place] [address] Dec, Other chronic pain G89.29 [facility] [address] [place] [address] Dec, Other chronic pain G89.29 [facility] [address] [place] [address] Dec, Other chronic pain G89.29 [facility] [address] [place] [address] Nov, Other chronic pain G89.29 [facility] [address] [place] [address] Nov, Other chronic pain G89.29 [facility] [address] [place] [address] Oct, Other chronic pain G89.29 [facility] [address] [place] [address] Oct, Other chronic pain G89.29 [facility] [address] [place] [address] Oct, Other chronic pain G89.29 [facility] [address] [place] [address] Oct, Other chronic pain G89.29 [facility] [address] [place] [address] Sep, Other chronic pain G89.29 [facility] [address] [place] [address] Sep, Other chronic pain G89.29 [facility] [address] [place] [id number] Sep, Asymptomatic human immunodeficiency viru s (HIV) infection status Z21 and GERD with esophagitis K21.0 [facility] [address] [place] [address] Sep, [facility] [address] [place] [address] Sep, Loss of appetite R63.0 and Other chronic pain G89.29 [facility] [address] [place] [address] Sep, Other chronic pain G89.29 [facility] [address] [place] [facility] [place] [address] Aug, Other chronic pain G89.29 [facility] [address] [place] [facility] [place] [address] Aug, Other chronic pain G89.29 [facility] [address] [place] [facility] [place] [address] July, Other chronic pain G89.29 [facility] [address] [place] [facility] [place] [address] July, [facility] [address] [place] [facility] [place] [address] July, [facility] [address] [place] [facility] [place] [address] July, Other chronic pain G89.29 [facility] [address] [place] [facility] [place] [address] July, [facility] [address] [place] [facility] [place] [address] July, Other chronic pain G89.29 [facility] [address] [place] [facility] [place] [address] Jun, [facility] [address] [place] [facility] [place] [address] Jun, Other chronic pain G89.29 [facility] [address] [place] [facility] [place] [address] Jun, [facility] [address] [place] [facility] [place] [address] Jun, Other chronic pain G89.29 [facility] [address] [place] [facility] [place] [address] May, Other chronic pain G89.29 [facility] [address] [place] [facility] [place] [address] May, [facility] [address] [place] [facility] [place] [address] May, [facility] [address] [place] [facility] [place] [address] May, [facility] [address] [place] [facility] [place] [address] May, [facility] [address] [place] [facility] [address] May, [facility] [address] [place] [facility] [place] [address] Apr, [facility] [address] [place] [facility] [place] [address] Apr, [facility] [address] [place] [facility] [place] [address] Apr, [facility] [address] [place] [facility] [address] Apr, [facility] [address] [place] [facility] [address] Apr, [facility] [address] [place] [facility] [place] [facility] [address] Apr, [facility] [address] [place] [facility] [place] [address] Apr, [facility] [address] [place] [facility] [place] [address] Apr, [facility] [address] [facility] [place] [address] Apr, [facility] [address] [place] [facility] [place] [address] Apr, Other chronic pain G89.29 [facility] [address] [facility] [place] [address] Apr, [facility] [address] [place] [id number] Apr, Asymptomatic human immunodeficiency viru s (HIV) infection status Z21 ; Other chronic pain G89.29 and Screening for cardiovascular condition Z13.6 [facility] [address] [place] [facility] [place] [address] Apr, [facility] [address] [place] [facility] [place] [address] Apr, [facility] [address] [facility] [place] [address] Apr, [facility] [address] [facility] [place] [address] Apr, Other chronic pain G89.29 [facility] [address] [place] [facility] [address] Mar, Loss of appetite R63.0 [facility] [address] [facility] [place] [address] Mar, [facility] [address] [facility] [place] [address] Mar, [facility] [address] [place] [facility] [address] Mar, [facility] [address] [facility] [place] [address] Mar, [facility] [address] [facility] [place] [address] Mar, Other chronic pain G89.29 [facility] [address] [facility] [place] [address] Mar, [facility] [address] [facility] [place] [address] Mar, [facility] [address] [facility] [place] [address] Mar, [facility] [address] [facility] [place] [address] Mar, Other chronic pain G89.29 [facility] [address] [facility] [place] [id number] Mar, Asymptomatic human immunodeficiency viru s (HIV) infection status Z21 [facility] [address] [place] [address] Mar, Other chronic pain G89.29 [facility] [address] [place] [address] Mar, [facility] [address] [facility] [place] [address] Mar, [facility] [address] [facility] [place] [address] Feb, Other chronic pain G89.29 [facility] [address] [place] [address] Feb, Other chronic pain G89.29 [facility] [address] [place] [id number] Feb, Other chronic pain G89.29 [facility] [address] [place] [id number] Feb, Asymptomatic human immunodeficiency viru s (HIV) infection status Z21 and Other chronic pain G89.29 [facility] [address] [place] [address] Jan, Other chronic pain G89.29 [facility] [address] [place] [address] Jan, Other chronic pain G89.29 [facility] [address] [place] [address] Jan, Asymptomatic human immunodeficiency viru s (HIV) infection status Z21 [facility] [address] [place] [address] Jan, Other chronic pain G89.29 [facility] [address] [place] [address] Jan, [facility] [address] [place] [address] Dec, Other chronic pain G89.29 [facility] [address] [place] [address] Dec, Other chronic pain G89.29 [facility] [address] [place] [id number] Nov, Asymptomatic human immunodeficiency viru s (HIV) infection status Z21 ; Influenza vaccine needed Z23 and Other chronic pain G89.29 [facility] [address] [place] [address] Nov, Other chronic pain G89.29 [facility] [address] [place] [address] Oct, [facility] [address] [place] [address] Oct, Other chronic pain G89.29 [facility] [address] [place] [address] Oct, [facility] [address] [place] [id number] Sep, Asymptomatic human immunodeficiency viru s (HIV) infection status Z21 ; Other chronic pain G89.29 and Generalized anxiety disorder F41.1 [facility] [address] [place] [address] Jun, [facility] [address] [place] [address] Jun, [facility] [address] [place] [address] Jun, [facility] [address] [place] [phone] Jun, Asymptomatic human immunodeficiency viru s (HIV) infection status Z21 ; Need for pneumococcal vaccine Z23 ; Major depressive disorder, recurrent, moderate F33.1 ; Loss of appetite R63.0 ; Other chronic pain G89.29 ; Other and unspecified noninfectious gastroenteritis and colitis K52.9 and Nausea R11.0 [facility] [address] [place] [address] Jun, [facility] [address] [place] [address] Jun, Acute right ankle pain M25.571 [facility] [address] [place] [address] May, [facility] [address] [place] [address] May, Acute right ankle pain M25.571 [facility] [address] [place] [address] Apr, [facility] [address] [place] [address] Apr, [facility] [address] [place] [address] Mar, Acute right ankle pain M25.571 [facility] [address] [place] [address] Mar, [facility] [address] [place] [address] Mar, [facility] [address] [place] [facility] [address] Mar, [facility] [address] [place] [facility] [address] Mar, [facility] [address] [place] [facility] [address] Mar, [facility] [address] [place] [facility] [address] Mar, Nausea and vomiting, intractability of v omiting not specified, unspecified vomiting type R11.2 [facility] [address] [facility] [place] [address] Mar, [facility] [address] [facility] [place] [address] Mar, Loss of appetite R63.0 [facility] [address] [facility] [place] [address] Mar, [facility] [address] [facility] [place] [address] Mar, [facility] [address] [facility] [place] [address] Mar, [facility] [address] [facility] [place] [address] Feb, Abscess L02.91 [facility] [address] [facility] [place] [address] Feb, Acute right ankle pain M25.571 [facility] [address] [facility] [place] [address] Feb, [facility] [address] [facility] [place] [address] Feb, [facility] [address] [facility] [place] [address] Feb, [facility] [address] [facility] [place] [address] Feb, Acute right ankle pain M25.571 [facility] [address] [facility] [place] [address] Feb, Abscess L02.91 [facility] [address] [place] [id number] Jan, Asymptomatic human immunodeficiency viru s (HIV) infection status Z21 ; Influenza vaccine needed Z23 and Acute right ankle pain M25.571 [facility] [address] [facility] [place] [address] Jan, Abscess L02.91 [facility] [address] [place] [address] Nov, [facility] [address] [place] [address] Nov, Abscess L02.91 [facility] [address] [place] [address] Nov, Anxiety F41.9 [facility] [address] [place] [address] Nov, Acute right ankle pain M25.571 [facility] [address] [place] [address] 15 Nov, 2016 [facility] [address] [place] [address] 14 Nov, 2016 [facility] [address] [place] [address] 14 Nov, 2016 Hiccups R06.6 [facility] [address] [place] [address] 13 Nov, 2016 [facility] [address] [place] [address] Nov, [facility] [address] [place] [address] Nov, [facility] [address] [place] [address] Nov, [facility] [address] [place] [address] Nov, [facility] [address] [place] [address] Nov, [facility] [address] [place] [address] Oct, [facility] [address] [place] [address], [place] [address] Oct, [facility] [address] [place] [address] Oct, [facility] [address] [place] [facility] [address] Oct, Abscess L02.91 [facility] [address] [place] [address] Oct, [facility] [address] [place] [facility] [address] Oct, [facility] [address] [place] [facility] [place] [address] Oct, [facility] [address] [place] [facility] [address] Oct, Abscess L02.91 and Acute right ankle ta n M25.571 [facility] [address] [place] [address] Oct, [facility] [address] [facility] [place] [address] Oct, [facility] [address] [place] [address] Oct, Abscess L02.91 [facility] [address] [facility] [place] [address] Oct, [facility] [address] [place] [address] Oct, [facility] [address] [place] [id number] Oct, Asymptomatic human immunodeficiency viru s (HIV) infection status Z21 ; 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 ; Nicotine dependence, cigarettes, uncomplicated F17.210 ; Iron deficiency anemia due to chronic blood loss D50.0 ; GERD with esophagitis K21.0 ; Major depressive disorder, recurrent, moderate F33.1 and Generalized anxiety disorder F41.1 [facility] [address] [place] [address] Sep, Major depressive disorder, recurrent, mo derate F33.1 [facility] [address] [place] [address] Sep, [facility] [address] [place] [address] Sep, [facility] [address] [place] [address] Sep, [facility] [address] [place] [address] Sep, [facility] [address] [place] [address] Sep, [facility] [address] [facility] [place] [address] Aug, [facility] [address] [facility] [place] [address] Aug, [facility] [address] [place] [address] Aug, [facility] [address] [place] [address] Aug, Loss of appetite R63.0 ; Major depressiv e disorder, recurrent, moderate F33.1 and Functional diarrhea K59.1 [facility] [address] [place] [address] Aug, Acute hemorrhoid K64.9 and Other osteoar thritis involving multiple joints M15.8 [facility] [address] [place] [address] Aug, Abscess L02.91 [facility] [address] [place] [address] July, Chronic diarrhea K52.9 [facility] [address] [place] [address] July, [facility] [address] [place] [id number] July, Asymptomatic human immunodeficiency viru s (HIV) infection status Z21 ; Nicotine dependence, cigarettes, uncomplicated F17.210 ; Chronic diarrhea K52.9 ; Abscess L02.91 ; GERD with esophagitis K21.0 ; Anxiety F41.9 and 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 [facility] [address] [place] [address] Jun, Pain in joint involving multiple sites M 25.[address] [address] Jun, [address] [address] Jun, Pain in joint involving multiple sites M 25.[address] [address] Jun, Pain in joint involving multiple sites M 25.50 ; GERD with esophagitis K21.0 and Intractable hiccups R06.[address] [address] May, Pain in joint involving multiple sites M 25.[address] [address] Apr, Pain in joint involving multiple sites M 25.50 and Anxiety F41.[address] [address] Apr, [address] [address] Apr, Chronic diarrhea K52.9 and Pain in joint involving multiple sites M25.50 [facility] [address] [place] [id number] 10 Apr, 2016 Asymptomatic human immunodeficiency viru s (HIV) infection status Z21 ; Mild intermittent asthma without complication J45.20 ; Iron deficiency anemia due to chronic blood loss D50.0 ; Screening, lipid Z13.220 ; Chronic diarrhea K52.9 ; Abscess L02.91 and Projectile vomiting with nausea R11.[address] [address] Feb, Acute hemorrhoid K64.[address] [address] Jan, [address] [address] Jan, Nausea and vomiting, intractability of v omiting not specified, unspecified vomiting type R11.2 and Acute right ankle pain M25.[address] [place] [address] 10 Jan, 2016 [facility] [address] [place] [address] 09 Jan, 2016 Asymptomatic human immunodeficiency viru s (HIV) infection status Z21 ; Iron deficiency anemia due to chronic blood loss D50.0 and Generalized abdominal pain R10.84 [facility] [address] [place] [id number] Dec, Asymptomatic human immunodeficiency viru s (HIV) infection status Z21 ; Mild intermittent asthma without complication J45.20 ; Influenza vaccine needed Z23 and Nicotine dependence, cigarettes, uncomplicated F17.210 [facility] [address] [facility] [address] [place] [id number] 9 Oct, 2013 [facility] [address] [facility] [address] [place] [id number] 8 Oct, 2013 [facility] [address] [place] [address] 08 May, 2012 [facility] [address] [place] [address] Feb, [facility] [address] [place] [address] 14 Nov, 2011 [facility] [address] [place] [address] Aug, [facility] [address] [place] [address] Apr, [facility] [address] [id number] 1 8 Jan, 2011 IMMUNIZATIONS No Known Immunizations SOCIAL HISTORY Never Assessed REASON FOR VISIT script requests PLAN OF CARE VITAL SIGNS MEDICATIONS Medication Instructions Dosage Frequency Start Date End Date Duration S tatus Percocet 7.5-325 mg Orally every 6 hrs 1 tablet as needed 6h May, 7 days Active RESULTS No Results PROCEDURES No Known procedures INSTRUCTIONS MEDICATIONS ADMINISTERED No Known Medications MEDICAL (GENERAL) HISTORY Type Description Date Medical History HIV Medical History Colitis Medical History chronic pain Medical History depression Surgical History No know Surgical history
--- OUTSIDE RECORDS SUMMARY | 2019-07-04 11:54 | XMS REPORT ---
Author Author ARTEMIO Li Organization [facility] Address [address] [place] [id number] Care Team Providers Care Database Consultant Name Role Phone Shana Li Unavailable PROBLEMS Type Condition ICD9-CM Code RED66-NX Code Onset Dates Condition S tatus SNOMED Code Problem Mild intermittent asthma without complication J45. 20 Active 482497133 Problem Iron deficiency anemia due to chronic blood loss D 50.0 Active 73580749 Problem Other osteoarthritis involving multiple joints M15 .8 Active 723682651 Problem Asymptomatic human immunodeficiency virus (HIV) infect ion status Z21 Active 50569160 Problem Other and unspecified noninfectious gastroenteritis an d colitis K52.9 Active 45709575 Problem Nicotine dependence, cigarettes, uncomplicated F17 .210 Active 03095624 Problem Other chronic pain G89.29 Active 8 6810513 Problem Generalized anxiety disorder F41.1 A ctive 48434449 Problem GERD with esophagitis K21.0 Active 040372283 Problem Functional diarrhea K59.1 Active 23732921 Problem Major depressive disorder, recurrent, moderate F33 .1 Active 405055135 Problem Loss of appetite R63.0 Active 798 64521 ALLERGIES No Information ENCOUNTERS Encounter Location Date Diagnosis [address] [address] May, [address] [address] May, Other chronic pain G89.[address] [address] May, Other chronic pain G89.[address] [address] Apr, Other chronic pain G89.[address] [address] Apr, [facility] [address] [place] [address] 15 Apr, 2019 Other chronic pain G89.29 [facility] [address] [id number] 07 Apr, 2019 Other chronic pain G89.29 and Asymptomat ic human immunodeficiency virus (HIV) infection status Z21 [facility] [address] [place] [address] Mar, [facility] [address] [place] [address] Mar, Other chronic pain G89.[address] [facility] [address] [place] [address] Mar, [facility] [address] [place] [address] Mar, [facility] [address] [place] [address] Mar, Other chronic pain G89.[address] [facility] [address] [place] [address] Mar, Other chronic pain G89.[address] [facility] [address] [place] [address] Feb, Loss of appetite R63.[address] [facility] [address] [place] [address] Feb, Other chronic pain G89.[address] [facility] [address] [place] [address] Feb, Other chronic pain G89.[address] [facility] [address] [place] [address] Feb, Other chronic pain G89.[address] [facility] [address] [place] [address] Jan, Other chronic pain G89.29 [facility] [address] [id number] Jan, Asymptomatic human immunodeficiency viru s (HIV) infection status Z21 ; GERD with esophagitis K21.0 ; Influenza vaccine needed Z23 and Other chronic pain G89.[address] [facility] [address] [place] [address] Dec, Other chronic pain G89.[address] [facility] [address] [place] [address] Dec, Other chronic pain G89.[address] [facility] [address] [place] [address] Dec, Other chronic pain G89.[address] [facility] [address] [place] [address] Dec, Other chronic pain G89.[address] [facility] [address] [place] [address] Nov, Other chronic pain G89.[address] [facility] [address] [place] [address] Nov, Other chronic pain G89.[address] [facility] [address] [place] [address] Oct, Other chronic pain G89.[address] [facility] [address] [place] [address] Oct, Other chronic pain G89.[address] [facility] [address] [place] [address] Oct, Other chronic pain G89.[address] [facility] [address] [place] [address] Oct, Other chronic pain G89.[address] [facility] [address] [place] [address] Sep, Other chronic pain G89.[address] [facility] [address] [place] [address] Sep, Other chronic pain G89.29 [facility] [address] [id number] Sep, Asymptomatic human immunodeficiency viru s (HIV) infection status Z21 and GERD with esophagitis K21.[address] [facility] [address] [place] [address] Sep, [facility] [address] [place] [address] Sep, Loss of appetite R63.0 and Other chronic pain G89.29 [facility] [address] [place] [facility] [place] [address] Sep, Other chronic pain G89.29 [facility] [address] [place] [address] Aug, Other chronic pain G89.29 [facility] [address] [place] [address] Aug, Other chronic pain G89.29 [facility] [address] [place] [address] July, Other chronic pain G89.29 [facility] [address] [place] [address] July, [facility] [address] [place] [address] July, [facility] [address] [place] [address] July, Other chronic pain G89.29 [facility] [address] [place] [address] July, [facility] [address] [place] [address] July, Other chronic pain G89.29 [facility] [address] [place] [address] Jun, [facility] [address] [place] [address] Jun, Other chronic pain G89.29 [facility] [address] [place] [address] Jun, [facility] [address] [place] [address] Jun, Other chronic pain G89.29 [facility] [address] [place] [address] May, Other chronic pain G89.29 [facility] [address] [place] [address] May, [facility] [address] [place] [address] May, [facility] [address] [place] [address] May, [facility] [address] [place] [address] May, [facility] [address] [place] [address] May, [facility] [address] [place] [address] Apr, [facility] [address] [place] [address] Apr, [facility] [address] [place] [address] Apr, [facility] [address] [place] [address] Apr, [facility] [address] [place] [address] Apr, [facility] [address] [place] [facility] [place] [address] Apr, [facility] [address] [place] [address] Apr, [facility] [address] [place] [facility] [place] [address] Apr, [facility] [address] [place] [address] Apr, [facility] [address] [place] [address] Apr, Other chronic pain G89.29 [facility] [address] [place] [address] Apr, [facility] [address] [id number] Apr, Asymptomatic human immunodeficiency viru s (HIV) infection status Z21 ; Other chronic pain G89.29 and Screening for cardiovascular condition Z13.6 [facility] [address] [place] [address] Apr, [facility] [address] [place] [address] Apr, [facility] [address] [place] [address] Apr, [facility] [address] [place] [address] Apr, Other chronic pain G89.29 [facility] [address] [place] [address] Mar, Loss of appetite R63.0 [facility] [address] [place] [address] Mar, [facility] [address] [place] [address] Mar, [facility] [address] [place] [address] Mar, [facility] [address] [place] [address] Mar, [facility] [address] [place] [address] Mar, Other chronic pain G89.29 [facility] [address] [place] [facility] [place] [address] Mar, [facility] [address] [place] [address] Mar, [facility] [address] [place] [address] Mar, [facility] [address] [place] [address] Mar, Other chronic pain G89.29 [facility] [address] [facility] [place] [id number] Mar, Asymptomatic human immunodeficiency viru s (HIV) infection status Z21 [facility] [address] [place] [address] Mar, Other chronic pain G89.29 [facility] [address] [place] [place] [address] Mar, [facility] [address] [place] [address] Mar, [facility] [address] [place] [address] Feb, Other chronic pain G89.[address] [facility] [address] [place] [address] Feb, Other chronic pain G89.29 [facility] [address] [place] [address] [id number] Feb, Other chronic pain G89.29 [facility] [address] [id number] Feb, Asymptomatic human immunodeficiency viru s (HIV) infection status Z21 and Other chronic pain G89.[address] [facility] [address] [place] [address] Jan, Other chronic pain G89.[address] [facility] [address] [place] [address] Jan, Other chronic pain G89.[address] [facility] [address] [place] [address] Jan, Asymptomatic human immunodeficiency viru s (HIV) infection status Z21 [facility] [address] [place] [address] Jan, Other chronic pain G89.[address] [address] Jan, [facility] [address] [place] [address] Dec, Other chronic pain G89.[address] [facility] [address] [place] [address] Dec, Other chronic pain G89.29 [facility] [address] [place] [phone] Nov, Asymptomatic human immunodeficiency viru s (HIV) infection status Z21 ; Influenza vaccine needed Z23 and Other chronic pain G89.[address] [facility] [address] [place] [address] Nov, Other chronic pain G89.[address] [facility] [address] [place] [address] Oct, [facility] [address] [place] [address] Oct, Other chronic pain G89.29 [facility] [address] [place] [address] Oct, [facility] [address] [id number] Sep, Asymptomatic human immunodeficiency viru s (HIV) infection status Z21 ; Other chronic pain G89.29 and Generalized anxiety disorder F41.1 [facility] [address] [place] [address] Jun, [facility] [address] [place] [address] Jun, [facility] [address] [place] [address] Jun, [facility] [address] [place] [phone] Jun, Asymptomatic human immunodeficiency viru s (HIV) infection status Z21 ; Need for pneumococcal vaccine Z23 ; Major depressive disorder, recurrent, moderate F33.1 ; Loss of appetite R63.0 ; Other chronic pain G89.29 ; Other and unspecified noninfectious gastroenteritis and colitis K52.9 and Nausea R11.0 [facility] [address] [place] [address] Jun, [facility] [address] [place] [address] Jun, Acute right ankle pain M25.571 [facility] [address] [address] May, [facility] [address] [place] [address] May, Acute right ankle pain M25.571 [facility] [address] [place] [address] Apr, [facility] [address] [place] [address] Apr, [facility] [address] [place] [address] Mar, Acute right ankle pain M25.571 [facility] [address] [place] [address] Mar, [facility] [address] [place] [facility] [place] [address] Mar, [facility] [address] [place] [facility] [place] [address] Mar, [facility] [address] [place] [facility] [place] [address] Mar, [facility] [address] [place] [facility] [place] [address] Mar, [facility] [address] [place] [facility] [place] [address] Mar, Nausea and vomiting, intractability of v omiting not specified, unspecified vomiting type R11.2 [facility] [address] [place] [facility] [place] [address] Mar, [facility] [address] [place] [address] Mar, Loss of appetite R63.0 [facility] [address] [place] [facility] [place] [address] Mar, [facility] [address] [place] [address] Mar, [facility] [address] [place] [address] Mar, [facility] [address] [place] [address] Feb, Abscess L02.91 [facility] [address] [place] [address] Feb, Acute right ankle pain M25.571 [facility] [address] [place] [facility] [place] [address] Feb, [facility] [address] [place] [facility] [place] [address] Feb, [facility] [address] [place] [address] Feb, [facility] [address] [place] [address] Feb, Acute right ankle pain M25.571 [facility] [address] [place] [address] Feb, Abscess L02.91 [facility] [address] [id number] Jan, Asymptomatic human immunodeficiency viru s (HIV) infection status Z21 ; Influenza vaccine needed Z23 and Acute right ankle pain M25.571 [facility] [address] [place] [address] Jan, Abscess L02.91 [facility] [address] [place] [facility] [place] [address] Nov, [facility] [address] [place] [address] Nov, Abscess L02.91 [facility] [address] [place] [address] Nov, Anxiety F41.9 [facility] [address] [place] [address] Nov, Acute right ankle pain M25.571 [facility] [address] [place] [address] 15 Nov, 2016 [facility] [address] [place] [address] Nov, [facility] [address] [place] [address] Nov, Hiccups R06.6 [facility] [address] [place] [address] Nov, [facility] [address] [place] [address] Nov, [facility] [address] [place] [address] Nov, [facility] [address] [place] [address] Nov, [facility] [address] [place] [address] Nov, [facility] [address] [place] [address] Nov, [facility] [address] [place] [address] Oct, [facility] [address] [place] [address] Oct, [facility] [address] [place] [facility] [place] [address] Oct, [facility] [address] [place] [facility] [place] [address] Oct, Abscess L02.91 [facility] [address] [place] [facility] [place] [address] Oct, [facility] [address] [place] [address] Oct, [facility] [address] [place] [address] Oct, [facility] [address] [place] [facility] [place] [address] Oct, Abscess L02.91 and Acute right ankle ta n M25.571 [facility] [address] [place] [address] Oct, [facility] [address] [place] [address] Oct, [facility] [address] [place] [address] Oct, Abscess L02.91 [facility] [address] [place] [address] Oct, [facility] [address] [place] [address] Oct, [facility] [address] [phone] Oct, Asymptomatic human immunodeficiency viru s (HIV) infection status Z21 ; FPC current use of opiate analgesic Z79.891 ; Nicotine dependence, cigarettes, uncomplicated F17.210 ; Iron deficiency anemia due to chronic blood loss D50.0 ; GERD with esophagitis K21.0 ; Major depressive disorder, recurrent, moderate F33.1 and Generalized anxiety disorder F41.1 [facility] [address] [place] [address] Sep, Major depressive disorder, recurrent, mo derate F33.[address] [facility] [address] [place] [address] Sep, [facility] [address] [place] [address] Sep, [facility] [address] [place] [address] Sep, [facility] [address] [place] [address] Sep, [facility] [address] [place] [address] Sep, [facility] [address] [place] [address] Aug, [facility] [address] [place] [address] Aug, [facility] [address] [place] [address], [place] [address] Aug, [facility] [address] [place] [address], [place] [address] Aug, Loss of appetite R63.0 ; Major depressiv e disorder, recurrent, moderate F33.1 and Functional diarrhea K59.[address] [facility] [address] [place] [address] Aug, Acute hemorrhoid K64.9 and Other osteoar thritis involving multiple joints M15.[address] [facility] [address] [place] [address] Aug, Abscess L02.[address] [facility] [address] [place] [address] July, Chronic diarrhea K52.[address] [facility] [address] [place] [address] July, [facility] [address] [place] [id number] July, Asymptomatic human immunodeficiency viru s (HIV) infection status Z21 ; Nicotine dependence, cigarettes, uncomplicated F17.210 ; Chronic diarrhea K52.9 ; Abscess L02.91 ; GERD with esophagitis K21.0 ; Anxiety F41.9 and 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 [address] 18 Jun, 2016 Pain in joint involving multiple sites M 25.[address] [address] Jun, [address] [address] Jun, Pain in joint involving multiple sites M 25.[address] [address] Jun, Pain in joint involving multiple sites M 25.50 ; GERD with esophagitis K21.0 and Intractable hiccups R06.[address] [address] May, Pain in joint involving multiple sites M 25.[address] [address] Apr, Pain in joint involving multiple sites M 25.50 and Anxiety F41.[address] [address] 17 Apr, [address] [address] Apr, Chronic diarrhea K52.9 and Pain in joint involving multiple sites M25.50 [facility] [address] [place] [id number] 10 Apr, 2016 Asymptomatic human immunodeficiency viru s (HIV) infection status Z21 ; Mild intermittent asthma without complication J45.20 ; Iron deficiency anemia due to chronic blood loss D50.0 ; Screening, lipid Z13.220 ; Chronic diarrhea K52.9 ; Abscess L02.91 and Projectile vomiting with nausea R11.[address] [address] Feb, Acute hemorrhoid K64.[address] [address] Jan, [address] [address] Jan, Nausea and vomiting, intractability of v omiting not specified, unspecified vomiting type R11.2 and Acute right ankle pain M25.[address] [facility] [address] [place] [address] Jan, [facility] [address] [place] [address] Jan, Asymptomatic human immunodeficiency viru s (HIV) infection status Z21 ; Iron deficiency anemia due to chronic blood loss D50.0 and Generalized abdominal pain R10.84 [facility] [address] [phone] Dec, Asymptomatic human immunodeficiency viru s (HIV) infection status Z21 ; Mild intermittent asthma without complication J45.20 ; Influenza vaccine needed Z23 and Nicotine dependence, cigarettes, uncomplicated F17.210 [facility] [address] [id number] 2 9 Oct, 2013 [facility] [address] [id number] 2 8 Oct, [address] [facility] [address] [place] [address] [address], [address] [facility] [address] [place] [address] Feb, [facility] [address] [place] [address] [address] Nov, [address] [facility] [address] [place] [address] Aug, [facility] [address] [place] [address] Apr, [facility] [address] [id number] 1 8 Jan, 2011 IMMUNIZATIONS No Known [...]
--- OUTSIDE RECORDS SUMMARY | 2019-07-04 11:54 | XMS REPORT ---
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 20 Active 002888411 Problem Other chronic pain G89.29 Active 8 8930427 Problem Asymptomatic human immunodeficiency virus (HIV) infect ion status Z21 Active 67236707 Problem GERD with esophagitis K21.0 Active 583441364 Problem Functional diarrhea K59.1 Active 68898468 Problem Major depressive disorder, recurrent, moderate F33 .1 Active 367103795 Problem Loss of appetite R63.0 Active [id number] [id number] ALLERGIES No Information ENCOUNTERS Encounter Location Date Diagnosis [address] [address] Jun, [address] [address] Jun, [address] [address] May, [address] [address] May, Other chronic pain G89.[address] [address] May, Other chronic pain G89.[address] [place] [address] 28 Apr, 2019 Other chronic pain G89.29 [facility] [address] [place] [address] 17 Apr, 2019 [facility] [address] [place] [address] 15 Apr, 2019 Other chronic pain G89.29 [facility] [address] [place] [id number] 07 Apr, 2019 Other chronic pain G89.29 and Asymptomat ic human immunodeficiency virus (HIV) infection status Z21 [facility] [address] [place] [address] Mar, [facility] [address] [place] [address] Mar, Other chronic pain G89.29 [facility] [address] [place] [address] Mar, [facility] [address] [place] [address] Mar, [facility] [address] [place] [address] Mar, Other chronic pain G89.29 [facility] [address] [place] [facility] [place] [address] Mar, Other chronic pain G89.29 [facility] [address] [place] [address] Feb, Loss of appetite R63.0 [facility] [address] [place] [address] Feb, Other chronic pain G89.29 [facility] [address] [place] [address] Feb, Other chronic pain G89.29 [facility] [address] [place] [facility] [place] [address] Feb, Other chronic pain G89.29 [facility] [address] [place] [address] Jan, Other chronic pain G89.29 [facility] [address] [place] [id number] Jan, Asymptomatic human immunodeficiency viru s (HIV) infection status Z21 ; GERD with esophagitis K21.0 ; Influenza vaccine needed Z23 and Other chronic pain G89.29 [facility] [address] [place] [address] Dec, Other chronic pain G89.29 [facility] [address] [place] [address] Dec, Other chronic pain G89.29 [facility] [address] [place] [address] Dec, Other chronic pain G89.29 [facility] [address] [place] [address] Dec, Other chronic pain G89.29 [facility] [address] [place] [address] Nov, Other chronic pain G89.29 [facility] [address] [place] [address] Nov, Other chronic pain G89.29 [facility] [address] [place] [address] Oct, Other chronic pain G89.29 [facility] [address] [place] [address] Oct, Other chronic pain G89.29 [facility] [address] [place] [address] Oct, Other chronic pain G89.29 [facility] [address] [place] [address] Oct, Other chronic pain G89.29 [facility] [address] [place] [address] Sep, Other chronic pain G89.29 [facility] [address] [place] [address] Sep, Other chronic pain G89.29 [facility] [address] [place] [id number] Sep, Asymptomatic human immunodeficiency viru s (HIV) infection status Z21 and GERD with esophagitis K21.0 [facility] [address] [place] [facility] [place] [address] Sep, [facility] [address] [place] [facility] [place] [address] Sep, Loss of appetite R63.0 and Other chronic pain G89.29 [facility] [address] [place] [facility] [place] [address] Sep, Other chronic pain G89.29 [facility] [address] [place] [facility] [place] [address] Aug, Other chronic pain G89.29 [facility] [address] [place] [facility] [place] [address] Aug, Other chronic pain G89.29 [facility] [address] [place] [facility] [place] [address] July, Other chronic pain G89.29 [facility] [address] [place] [facility] [place] [address] July, [facility] [address] [place] [facility] [place] [address] July, [facility] [address] [place] [facility] [place] [address] July, Other chronic pain G89.29 [facility] [address] [place] [facility] [place] [address] July, [facility] [address] [place] [facility] [place] [address] July, Other chronic pain G89.29 [facility] [address] [place] [facility] [place] [address] Jun, [facility] [address] [place] [facility] [place] [address] Jun, Other chronic pain G89.29 [facility] [address] [place] [facility] [place] [address] Jun, [facility] [address] [place] [facility] [place] [address] Jun, Other chronic pain G89.29 [facility] [address] [place] [facility] [place] [address] May, Other chronic pain G89.29 [facility] [address] [place] [facility] [place] [address] May, [facility] [address] [place] [facility] [place] [address] May, [facility] [address] [place] [facility] [place] [address] May, [facility] [address] [place] [facility] [place] [address] May, [facility] [address] [place] [facility] [place] [address] May, [facility] [address] [place] [facility] [place] [address] Apr, [facility] [address] [place] [facility] [place] [address] Apr, [facility] [address] [place] [facility] [place] [address] Apr, [facility] [address] [place] [facility] [place] [address] Apr, [facility] [address] [place] [facility] [place] [address] Apr, [facility] [address] [place] [facility] [place] [facility] [address] Apr, [facility] [address] [place] [facility] [place] [address] Apr, [facility] [address] [place] [facility] [place] [facility] [address] Apr, [facility] [address] [place] [address] Apr, [facility] [address] [place] [facility] [place] [address] Apr, Other chronic pain G89.29 [facility] [address] [place] [facility] [place] [address] Apr, [facility] [address] [place] [id number] Apr, Asymptomatic human immunodeficiency viru s (HIV) infection status Z21 ; Other chronic pain G89.29 and Screening for cardiovascular condition Z13.6 [facility] [address] [place] [address] 14 Apr, 2018 [facility] [address] [place] [address] Apr, [facility] [address] [place] [address] Apr, [facility] [address] [place] [address] Apr, Other chronic pain G89.29 [facility] [address] [place] [address] Mar, Loss of appetite R63.0 [facility] [address] [place] [address] Mar, [facility] [address] [place] [address] Mar, [facility] [address] [place] [address] Mar, [facility] [address] [place] [address] Mar, [facility] [address] [place] [address] Mar, Other chronic pain G89.29 [facility] [address] [place] [address] Mar, [facility] [address] [place] [address] Mar, [facility] [address] [place] [address] Mar, [facility] [address] [place] [address] Mar, Other chronic pain G89.29 [facility] [address] [place] [address] S [id number] Mar, Asymptomatic human immunodeficiency viru s (HIV) infection status Z21 [facility] [address] [place] [address] Mar, Other chronic pain G89.29 [facility] [address] [place] [address] Mar, [facility] [address] [place] [address] Mar, [facility] [address] [place] [address] Feb, Other chronic pain G89.29 [facility] [address] [place] [address] Feb, Other chronic pain G89.29 [facility] [address] [facility] S [id number] Feb, Other chronic pain G89.29 [facility] [address] [place] [id number] Feb, Asymptomatic human immunodeficiency viru s (HIV) infection status Z21 and Other chronic pain G89.29 [facility] [address] [place] [address] Jan, Other chronic pain G89.29 [facility] [address] [place] [address] Jan, Other chronic pain G89.29 [facility] [address] [place] [address] Jan, Asymptomatic human immunodeficiency viru s (HIV) infection status Z21 [facility] [address] [place] [address] Jan, Other chronic pain G89.29 [facility] [address] [place] [address] Jan, [facility] [address] [place] [address] Dec, Other chronic pain G89.29 [facility] [address] [place] [address] Dec, Other chronic pain G89.29 [facility] [address] [place] [id number] Nov, Asymptomatic human immunodeficiency viru s (HIV) infection status Z21 ; Influenza vaccine needed Z23 and Other chronic pain G89.29 [facility] [address] [place] [address] Nov, Other chronic pain G89.29 [facility] [address] [place] [address] Oct, [facility] [address] [place] [address] Oct, Other chronic pain G89.29 [facility] [address] [place] [address] Oct, [address] [id number] Sep, Asymptomatic human immunodeficiency viru s (HIV) infection status Z21 ; Other chronic pain G89.29 and Generalized anxiety disorder F41.1 [facility] [address] [place] [address] Jun, [facility] [address] [place] [address] Jun, [facility] [address] [place] [address] Jun, [address] [id number] Jun, Asymptomatic human immunodeficiency viru s (HIV) infection status Z21 ; Need for pneumococcal vaccine Z23 ; Major depressive disorder, recurrent, moderate F33.1 ; Loss of appetite R63.0 ; Other chronic pain G89.29 ; Other and unspecified noninfectious gastroenteritis and colitis K52.9 and Nausea R11.[address] [address] Jun, [facility] [address] [place] [address] Jun, Acute right ankle pain M25.571 [facility] [address] [place] [address] May, [facility] [address] [place] [address] May, Acute right ankle pain M25.571 [facility] [address] [place] [address] Apr, [facility] [address] [place] [address] Apr, [facility] [address] [place] [facility] [place] [facility] [address] Mar, Acute right ankle pain M25.571 [facility] [address] [place] [facility] [address] Mar, [facility] [address] [place] [facility] [address] Mar, [facility] [address] [place] [facility] [address] Mar, [facility] [address] [place] [facility] [address] Mar, [facility] [address] [place] [facility] [address] Mar, [facility] [address] [place] [facility] [address] Mar, Nausea and vomiting, intractability of v omiting not specified, unspecified vomiting type R11.2 [facility] [address] [place] [facility] [place] [facility] [address] Mar, [facility] [address] [place] [facility] [place] [facility] [address] Mar, Loss of appetite R63.0 [facility] [address] [place] [address] Mar, [facility] [address] [place] [address] Mar, [facility] [address] [place] [address] Mar, [facility] [address] [place] [address] Feb, Abscess L02.91 [facility] [address] [place] [address] Feb, Acute right ankle pain M25.571 [facility] [address] [place] [address] Feb, [facility] [address] [place] [address] Feb, [facility] [address] [place] [address] Feb, [facility] [address] [place] [address] Feb, Acute right ankle pain M25.571 [facility] [address] [place] [address] Feb, Abscess L02.91 [facility] [address] [place] [id number] Jan, Asymptomatic human immunodeficiency viru s (HIV) infection status Z21 ; Influenza vaccine needed Z23 and Acute right ankle pain M25.571 [facility] [address] [place] [address] Jan, Abscess L02.91 [facility] [address] [place] [address] Nov, [facility] [address] [place] [address] Nov, Abscess L02.91 [facility] [address] [place] [address] Nov, Anxiety F41.9 [facility] [address] [place] [address] Nov, Acute right ankle pain M25.571 [facility] [address] [place] [address] Nov, [facility] [address] [place] [address] Nov, [facility] [address] [place] [address] Nov, Hiccups R06.6 [facility] [address] [place] [address] 13 Nov, 2016 [facility] [address] [place] [address] Nov, [facility] [address] [place] [address] Nov, [facility] [address] [place] [address] Nov, [facility] [address] [place] [address], [place] [address] Nov, [facility] [address] [place] [address] Nov, [facility] [address] [place] [facility] [place] [facility] [address] Oct, [facility] [address] [place] [facility] [place] [facility] [address] Oct, [facility] [address] [place] [facility] [place] [facility] [address] Oct, [facility] [address] [place] [facility] [place] [address] Oct, Abscess L02.91 [facility] [address] [place] [address] Oct, [facility] [address] [place] [facility] [place] [facility] [address] Oct, [facility] [address] [place] [address] Oct, [facility] [address] [place] [facility] [place] [facility] [address] Oct, Abscess L02.91 and Acute right ankle ta n M25.571 [facility] [address] [place] [address] Oct, [facility] [address] [place] [address] Oct, [facility] [address] [place] [address] Oct, Abscess L02.91 [facility] [address] [place] [address] Oct, [facility] [address] [place] [address] Oct, [facility] [address] [place] [id number] Oct, Asymptomatic human immunodeficiency viru s (HIV) infection status Z21 ; intermediate current use of opiate analgesic Z79.891 ; Nicotine dependence, cigarettes, uncomplicated F17.210 ; Iron deficiency anemia due to chronic blood loss D50.0 ; GERD with esophagitis K21.0 ; Major depressive disorder, recurrent, moderate F33.1 and Generalized anxiety disorder F41.1 [facility] [address] [place] [facility] [place] [address] Sep, Major depressive disorder, recurrent, mo derate F33.1 [facility] [address] [place] [address] Sep, [facility] [address] [place] [facility] [place] [address] Sep, [facility] [address] [place] [address] Sep, [facility] [address] [place] [address] Sep, [facility] [address] [place] [address] Sep, [facility] [address] [place] [address] Aug, [facility] [address] [place] [address] Aug, [facility] [address] [place] [address] Aug, [facility] [address] [place] [address] Aug, Loss of appetite R63.0 ; Major depressiv e disorder, recurrent, moderate F33.1 and Functional diarrhea K59.1 [facility] [address] [place] [address] Aug, Acute hemorrhoid K64.9 and Other osteoar thritis involving multiple joints M15.8 [facility] [address] [place] [address] Aug, Abscess L02.91 [facility] [address] [place] [address] July, Chronic diarrhea K52.9 [facility] [address] [place] [address] July, [facility] [address] [place] [id number] July, Asymptomatic human immunodeficiency viru s (HIV) infection status Z21 ; Nicotine dependence, cigarettes, uncomplicated F17.210 ; Chronic diarrhea K52.9 ; Abscess L02.91 ; GERD with esophagitis K21.0 ; Anxiety F41.9 and 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 [address] Jun, Pain in joint involving multiple sites M 25.[address] [address] Jun, [address] [address] Jun, Pain in joint involving multiple sites M 25.[address] [address] Jun, Pain in joint involving multiple sites M 25.50 ; GERD with esophagitis K21.0 and Intractable hiccups R06.[address] [address] May, Pain in joint involving multiple sites M 25.[address] [address] Apr, Pain in joint involving multiple sites M 25.50 and Anxiety F41.[address] [address] Apr, [address] [address] Apr, Chronic diarrhea K52.9 and Pain in joint involving multiple sites M25.50 [facility] [address] [place] [id number] 10 Apr, 2016 Asymptomatic human immunodeficiency viru s (HIV) infection status Z21 ; Mild intermittent asthma without complication J45.20 ; Iron deficiency anemia due to chronic blood loss D50.0 ; Screening, lipid Z13.220 ; Chronic diarrhea K52.9 ; Abscess L02.91 and Projectile vomiting with nausea R11.[address] [address] Feb, Acute hemorrhoid K64.[address] [place] [address] Jan, [facility] [address] [place] [address] Jan, Nausea and vomiting, intractability of v omiting not specified, unspecified vomiting type R11.2 and Acute right ankle pain M25.571 [facility] [address] [place] [address] Jan, [facility] [address] [place] [address] Jan, Asymptomatic human immunodeficiency viru s (HIV) infection status Z21 ; Iron deficiency anemia due to chronic blood loss D50.0 and Generalized abdominal pain R10.84 [facility] [address] [place] [id number] Dec, Asymptomatic human immunodeficiency viru s (HIV) infection status Z21 ; Mild intermittent asthma without complication J45.20 ; Influenza vaccine needed Z23 and Nicotine dependence, cigarettes, uncomplicated F17.210 [facility] [address] [id number] 2 9 Oct, 2013 [place] [id number] [address] [id number] 2 8 Oct, 2013 [facility] [address] [place] [address] 08 May, 2012 [facility] [address] [place] [address] Feb, [facility] [address] [place] [address] Nov, [facility] [address] [place] [address] Aug, [facility] [address] [place] [address] Apr, [address] [id number] 8 Jan, 2011 IMMUNIZATIONS No Known Immunizations SOCIAL HISTORY Never Assessed REASON FOR VISIT script requests PLAN OF CARE VITAL SIGNS MEDICATIONS Medication Instructions Dosage Frequency Start Date End Date Duration S tatus Percocet 7.5-325 mg Orally every 6 hrs 1 tablet as needed 6h 10 Jun, 2019 7 days Active RESULTS No Results PROCEDURES No Known procedures INSTRUCTIONS MEDICATIONS ADMINISTERED No Known Medications MEDICAL (GENERAL) HISTORY Type Description Date Medical History HIV Medical History Colitis Medical History chronic pain Medical History depression Surgical History No know Surgical history
--- OUTSIDE RECORDS SUMMARY | 2019-07-04 11:54 | XMS REPORT ---
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 20 Active 535253095 Problem Other chronic pain G89.29 Active 8 8343443 Problem Asymptomatic human immunodeficiency virus (HIV) infect ion status Z21 Active 07569882 Problem GERD with esophagitis K21.0 Active 541153277 Problem Functional diarrhea K59.1 Active 28542631 Problem Major depressive disorder, recurrent, moderate F33 .1 Active 736622090 Problem Loss of appetite R63.0 Active 798 55744 ALLERGIES No Information ENCOUNTERS Encounter Location Date Diagnosis [address] [address] Jun, [address] [address] May, [address] [address] May, Other chronic pain G89.[address] [address] May, Other chronic pain G89.[address] [address] Apr, Other chronic pain G89.29 [facility] [address] [place] [facility] [place] [address] Apr, [facility] [address] [place] [address] Apr, Other chronic pain G89.29 [facility] [address] [place] [id number] Apr, Other chronic pain G89.29 and Asymptomat ic human immunodeficiency virus (HIV) infection status Z21 [facility] [address] [place] [facility] [place] [address] Mar, [facility] [address] [place] [address] Mar, Other chronic pain G89.29 [facility] [address] [place] [facility] [place] [address] Mar, [facility] [address] [place] [address] Mar, [facility] [address] [place] [address] Mar, Other chronic pain G89.29 [facility] [address] [place] [facility] [place] [address] Mar, Other chronic pain G89.29 [facility] [address] [place] [facility] [place] [address] Feb, Loss of appetite R63.0 [facility] [address] [place] [address] Feb, Other chronic pain G89.29 [facility] [address] [place] [address] Feb, Other chronic pain G89.29 [facility] [address] [place] [facility] [place] [address] Feb, Other chronic pain G89.29 [facility] [address] [place] [address] Jan, Other chronic pain G89.29 [facility] [address] [place] [id number] Jan, Asymptomatic human immunodeficiency viru s (HIV) infection status Z21 ; GERD with esophagitis K21.0 ; Influenza vaccine needed Z23 and Other chronic pain G89.29 [facility] [address] [place] [address] Dec, Other chronic pain G89.29 [facility] [address] [place] [facility] [place] [address] Dec, Other chronic pain G89.29 [facility] [address] [place] [address] Dec, Other chronic pain G89.29 [facility] [address] [place] [address] Dec, Other chronic pain G89.29 [facility] [address] [place] [address] Nov, Other chronic pain G89.29 [facility] [address] [place] [address] Nov, Other chronic pain G89.29 [facility] [address] [place] [address] Oct, Other chronic pain G89.29 [facility] [address] [place] [address] Oct, Other chronic pain G89.29 [facility] [address] [place] [address] Oct, Other chronic pain G89.29 [facility] [address] [place] [address] Oct, Other chronic pain G89.29 [facility] [address] [place] [address] Sep, Other chronic pain G89.29 [facility] [address] [place] [address] Sep, Other chronic pain G89.29 [facility] [address] [place] [id number] Sep, Asymptomatic human immunodeficiency viru s (HIV) infection status Z21 and GERD with esophagitis K21.0 [facility] [address] [place] [address] Sep, [facility] [address] [place] [facility] [place] [address] Sep, Loss of appetite R63.0 and Other chronic pain G89.29 [facility] [address] [place] [facility] [place] [address] Sep, Other chronic pain G89.29 [facility] [address] [place] [facility] [place] [address] Aug, Other chronic pain G89.29 [facility] [address] [place] [facility] [place] [address] Aug, Other chronic pain G89.29 [facility] [address] [place] [facility] [place] [address] July, Other chronic pain G89.29 [facility] [address] [place] [facility] [place] [address] July, [facility] [address] [place] [facility] [place] [address] July, [facility] [address] [place] [facility] [place] [address] July, Other chronic pain G89.29 [facility] [address] [place] [facility] [place] [address] July, [facility] [address] [place] [address] July, Other chronic pain G89.29 [facility] [address] [place] [facility] [place] [address] Jun, [facility] [address] [place] [address] Jun, Other chronic pain G89.29 [facility] [address] [place] [facility] [place] [address] Jun, [facility] [address] [place] [address] Jun, Other chronic pain G89.29 [facility] [address] [place] [facility] [place] [address] May, Other chronic pain G89.29 [facility] [address] [place] [facility] [place] [address] May, [facility] [address] [place] [facility] [place] [address] May, [facility] [address] [place] [facility] [place] [address] May, [facility] [address] [place] [facility] [place] [address] May, [facility] [address] [place] [facility] [place] [address] May, [facility] [address] [place] [facility] [place] [address] Apr, [facility] [address] [place] [facility] [place] [address] Apr, [facility] [address] [place] [facility] [place] [address] Apr, [facility] [address] [place] [address] Apr, [facility] [address] [place] [facility] [place] [address] Apr, [facility] [address] [place] [address] Apr, [facility] [address] [place] [address] Apr, [facility] [address] [place] [facility] [place] [address] Apr, [facility] [address] [place] [address] Apr, [facility] [address] [place] [address] Apr, Other chronic pain G89.29 [facility] [address] [place] [address] Apr, [facility] [address] [place] [id number] Apr, Asymptomatic human immunodeficiency viru s (HIV) infection status Z21 ; Other chronic pain G89.29 and Screening for cardiovascular condition Z13.6 [facility] [address] [place] [address] Apr, [facility] [address] [place] [facility] [place] [address] Apr, [facility] [address] [place] [address] Apr, [facility] [address] [place] [address] Apr, Other chronic pain G89.29 [facility] [address] [place] [address] Mar, Loss of appetite R63.0 [facility] [address] [place] [address] Mar, [facility] [address] [place] [address] Mar, [facility] [address] [place] [address] Mar, [facility] [address] [place] [address] Mar, [facility] [address] [place] [address] Mar, Other chronic pain G89.29 [facility] [address] [place] [address] Mar, [facility] [address] [place] [address] Mar, [facility] [address] [place] [address] Mar, [facility] [address] [place] [address] Mar, Other chronic pain G89.29 [facility] [address] [facility] [place] [id number] Mar, Asymptomatic human immunodeficiency viru s (HIV) infection status Z21 [facility] [address] [place] [address] Mar, Other chronic pain G89.29 [facility] [address] [place] [address] Mar, [facility] [address] [place] [address] Mar, [facility] [address] [place] [address] Feb, Other chronic pain G89.29 [facility] [address] [place] [address] Feb, Other chronic pain G89.29 [facility] [address] [place] [id number] Feb, Other chronic pain G89.29 [facility] [address] [place] [id number] Feb, Asymptomatic human immunodeficiency viru s (HIV) infection status Z21 and Other chronic pain G89.29 [facility] [address] [place] [address] Jan, Other chronic pain G89.29 [facility] [address] [place] [address] Jan, Other chronic pain G89.29 [facility] [address] [place] [address] Jan, Asymptomatic human immunodeficiency viru s (HIV) infection status Z21 [facility] [address] [place] [address] Jan, Other chronic pain G89.29 [facility] [address] [place] [address] Jan, [facility] [address] [place] [address] Dec, Other chronic pain G89.29 [facility] [address] [place] [address] Dec, Other chronic pain G89.29 [facility] [address] [place] [id number] Nov, Asymptomatic human immunodeficiency viru s (HIV) infection status Z21 ; Influenza vaccine needed Z23 and Other chronic pain G89.29 [facility] [address] [place] [address] Nov, Other chronic pain G89.29 [facility] [address] [place] [address] Oct, [facility] [address] [place] [address] Oct, Other chronic pain G89.29 [facility] [address] [place] [address] 08 Oct, 2017 [facility] [address] [place] [id number] Sep, Asymptomatic human immunodeficiency viru s (HIV) infection status Z21 ; Other chronic pain G89.29 and Generalized anxiety disorder F41.1 [facility] [address] [place] [address] Jun, [facility] [address] [place] [address] Jun, [facility] [address] [place] [address] Jun, [facility] [address] [place] [id number] Jun, Asymptomatic human immunodeficiency viru s (HIV) infection status Z21 ; Need for pneumococcal vaccine Z23 ; Major depressive disorder, recurrent, moderate F33.1 ; Loss of appetite R63.0 ; Other chronic pain G89.29 ; Other and unspecified noninfectious gastroenteritis and colitis K52.9 and Nausea R11.0 [facility] [address] [place] [address] Jun, [facility] [address] [place] [address] Jun, Acute right ankle pain M25.571 [facility] [address] [place] [address] May, [facility] [address] [place] [address] May, Acute right ankle pain M25.571 [facility] [address] [place] [address] Apr, [facility] [address] [place] [address] Apr, [facility] [address] [place] [address] Mar, Acute right ankle pain M25.571 [facility] [address] [place] [facility] [place] [address] Mar, [facility] [address] [place] [facility] [place] [address] Mar, [facility] [address] [place] [facility] [place] [address] Mar, [facility] [address] [place] [facility] [place] [address] Mar, [facility] [address] [place] [facility] [place] [address] Mar, [facility] [address] [place] [address] Mar, Nausea and vomiting, intractability of v omiting not specified, unspecified vomiting type R11.2 [facility] [address] [place] [address] Mar, [facility] [address] [place] [address] Mar, Loss of appetite R63.0 [facility] [address] [place] [address] Mar, [facility] [address] [place] [address] Mar, [facility] [address] [place] [address] Mar, [facility] [address] [place] [address] Feb, Abscess L02.91 [facility] [address] [place] [address] Feb, Acute right ankle pain M25.571 [facility] [address] [place] [address] Feb, [facility] [address] [place] [address] Feb, [facility] [address] [place] [address] Feb, [facility] [address] [place] [address] Feb, Acute right ankle pain M25.571 [facility] [address] [place] [address] Feb, Abscess L02.91 [facility] [address] [place] [id number] Jan, Asymptomatic human immunodeficiency viru s (HIV) infection status Z21 ; Influenza vaccine needed Z23 and Acute right ankle pain M25.571 [facility] [address] [place] [address] Jan, Abscess L02.91 [facility] [address] [place] [address] Nov, [facility] [address] [place] [address] Nov, Abscess L02.91 [facility] [address] [place] [address] Nov, Anxiety F41.9 [facility] [address] [place] [address] Nov, Acute right ankle pain M25.571 [facility] [address] [place] [address] Nov, [facility] [address] [place] [address] Nov, [facility] [address] [place] [address] Nov, Hiccups R06.6 [facility] [address] [place] [address] 13 Nov, 2016 [facility] [address] [place] [address] Nov, [facility] [address] [place] [address] Nov, [facility] [address] [place] [address] Nov, [facility] [address] [place] [address] Nov, [facility] [address] [place] [address], [place] [address] Nov, [facility] [address] [place] [facility] [place] [address] Oct, [facility] [address] [place] [facility] [place] [address] Oct, [facility] [address] [place] [facility] [place] [address] Oct, [facility] [address] [place] [facility] [place] [address] Oct, Abscess L02.91 [facility] [address] [place] [facility] [place] [address] Oct, [facility] [address] [place] [facility] [place] [address] Oct, [facility] [address] [place] [facility] [place] [address] Oct, [facility] [address] [place] [facility] [place] [address] Oct, Abscess L02.91 and Acute right ankle ta n M25.571 [facility] [address] [place] [facility] [place] [address] Oct, [facility] [address] [place] [facility] [place] [address] Oct, [facility] [address] [place] [facility] [place] [address] Oct, Abscess L02.91 [facility] [address] [place] [facility] [place] [address] Oct, [facility] [address] [place] [facility] [place] [address] Oct, [facility] [address] [place] [id number] Oct, Asymptomatic human immunodeficiency viru s (HIV) infection status Z21 ; 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 ; Nicotine dependence, cigarettes, uncomplicated F17.210 ; Iron deficiency anemia due to chronic blood loss D50.0 ; GERD with esophagitis K21.0 ; Major depressive disorder, recurrent, moderate F33.1 and Generalized anxiety disorder F41.1 [facility] [address] [place] [facility] [place] [address] Sep, Major depressive disorder, recurrent, mo derate F33.1 [facility] [address] [place] [address] Sep, [facility] [address] [place] [facility] [place] [address] Sep, [facility] [address] [place] [address] Sep, [facility] [address] [place] [address] Sep, [facility] [address] [place] [address] Sep, [facility] [address] [place] [address] Aug, [facility] [address] [place] [address] Aug, [facility] [address] [place] [address] Aug, [facility] [address] [place] [address] Aug, Loss of appetite R63.0 ; Major depressiv e disorder, recurrent, moderate F33.1 and Functional diarrhea K59.1 [facility] [address] [place] [address] Aug, Acute hemorrhoid K64.9 and Other osteoar thritis involving multiple joints M15.8 [facility] [address] [place] [address] Aug, Abscess L02.91 [facility] [address] [place] [address] July, Chronic diarrhea K52.9 [facility] [address] [place] [address] July, [facility] [address] [place] [id number] July, Asymptomatic human immunodeficiency viru s (HIV) infection status Z21 ; Nicotine dependence, cigarettes, uncomplicated F17.210 ; Chronic diarrhea K52.9 ; Abscess L02.91 ; GERD with esophagitis K21.0 ; Anxiety F41.9 and 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 [facility] [address] [place] [address] Jun, Pain in joint involving multiple sites M 25.50 [facility] [address] [place] [address] Jun, [address] [address] Jun, Pain in joint involving multiple sites M 25.[address] [address] Jun, Pain in joint involving multiple sites M 25.50 ; GERD with esophagitis K21.0 and Intractable hiccups R06.[address] [address] May, Pain in joint involving multiple sites M 25.[address] [address] Apr, Pain in joint involving multiple sites M 25.50 and Anxiety F41.[address] [address] Apr, [address] [address] Apr, Chronic diarrhea K52.9 and Pain in joint involving multiple sites M25.50 [facility] [address] [place] [id number] Apr, Asymptomatic human immunodeficiency viru s (HIV) infection status Z21 ; Mild intermittent asthma without complication J45.20 ; Iron deficiency anemia due to chronic blood loss D50.0 ; Screening, lipid Z13.220 ; Chronic diarrhea K52.9 ; Abscess L02.91 and Projectile vomiting with nausea R11.[address] [address] Feb, Acute hemorrhoid K64.[address] [address] Jan, [address] [place] [address] Jan, Nausea and vomiting, intractability of v omiting not specified, unspecified vomiting type R11.2 and Acute right ankle pain M25.571 [facility] [address] [place] [address] Jan, [facility] [address] [place] [address] 09 Jan, 2016 Asymptomatic human immunodeficiency viru s (HIV) infection status Z21 ; Iron deficiency anemia due to chronic blood loss D50.0 and Generalized abdominal pain R10.84 [facility] [address] [place] [id number] Dec, Asymptomatic human immunodeficiency viru s (HIV) infection status Z21 ; Mild intermittent asthma without complication J45.20 ; Influenza vaccine needed Z23 and Nicotine dependence, cigarettes, uncomplicated F17.210 [place] [address] [id number] 9 Oct, 2013 [place] 237160 [address] [id number] 2 8 Oct, 2013 [facility] [address] [place] [address] 08 May, 2012 [facility] [address] [place] [address] Feb, [facility] [address] [place] [address] Nov, [facility] [address] [place] [address] Aug, [facility] [address] [place] [address] Apr, [place] 237160 [address] [id number] 8 Jan, 2011 IMMUNIZATIONS No Known [...]
--- OUTSIDE RECORDS SUMMARY | 2019-07-04 11:55 | XMS REPORT ---
Author Author ARTEMIO Li Organization [facility] Address [address] [place], [place] [id number] Care Team Providers Care Broadcast Operations Technician Name Role Phone Shana Li Unavailable PROBLEMS Type Condition ICD9-CM Code [id number] Code Onset Dates Condition S tatus SNOMED Code Problem Mild intermittent asthma without complication J45. 20 Active 164078564 Problem Iron deficiency anemia due to chronic blood loss D 50.0 Active 41142126 Problem Other osteoarthritis involving multiple joints M15 .8 Active 564956893 Problem Asymptomatic human immunodeficiency virus (HIV) infect ion status Z21 Active 12581483 Problem Other and unspecified noninfectious gastroenteritis an d colitis K52.9 Active 48791551 Problem Nicotine dependence, cigarettes, uncomplicated F17 .210 Active 09571801 Problem Other chronic pain G89.29 Active 8 6327463 Problem Generalized anxiety disorder F41.1 A ctive 30759714 Problem GERD with esophagitis K21.0 Active 891533787 Problem Functional diarrhea K59.1 Active 53285639 Problem Major depressive disorder, recurrent, moderate F33 .1 Active 705759841 Problem Loss of appetite R63.0 Active 798 43480 ALLERGIES No Information ENCOUNTERS Encounter Location Date Diagnosis [id number] [place] [address] Apr, Other chronic pain G89.29 [facility] [address] [place] [address] Apr, [address] [address] Apr, Other chronic pain G89.29 [facility] [address] [place] [id number] 07 Apr, 2019 Other chronic pain G89.29 and Asymptomat ic human immunodeficiency virus (HIV) infection status Z21 [address] [address] Mar, [facility] [address] [place] [address] Mar, Other chronic pain G89.29 [facility] [address] [place] [address] Mar, [facility] [address] [place] [address] Mar, [facility] [address] [place] [address] Mar, Other chronic pain G89.29 [facility] [address] [place] [address] Mar, Other chronic pain G89.29 [facility] [address] [place] [address] Feb, Loss of appetite R63.0 [facility] [address] [place] [address] Feb, Other chronic pain G89.29 [facility] [address] [place] [address] Feb, Other chronic pain G89.29 [facility] [address] [place] [address] Feb, Other chronic pain G89.29 [facility] [address] [place] [address] Jan, Other chronic pain G89.29 [facility] [address] [place] [id number] Jan, Asymptomatic human immunodeficiency viru s (HIV) infection status Z21 ; GERD with esophagitis K21.0 ; Influenza vaccine needed Z23 and Other chronic pain G89.29 [facility] [address] [place] [address] Dec, Other chronic pain G89.29 [facility] [address] [place] [address] Dec, Other chronic pain G89.29 [facility] [address] [place] [address] Dec, Other chronic pain G89.29 [facility] [address] [place] [address] Dec, Other chronic pain G89.29 [facility] [address] [place] [address] Nov, Other chronic pain G89.29 [facility] [address] [place] [address] Nov, Other chronic pain G89.29 [facility] [address] [place] [address] Oct, Other chronic pain G89.29 [facility] [address] [place] [address] Oct, Other chronic pain G89.29 [facility] [address] [place] [address] Oct, Other chronic pain G89.29 [facility] [address] [place] [address] Oct, Other chronic pain G89.29 [facility] [address] [place] [address] Sep, Other chronic pain G89.29 [facility] [address] [place] [address] Sep, Other chronic pain G89.29 [facility] [address] [place] [phone] Sep, Asymptomatic human immunodeficiency viru s (HIV) infection status Z21 and GERD with esophagitis K21.0 [facility] [address] [place] [address] Sep, [facility] [address] [place] [address] Sep, Loss of appetite R63.0 and Other chronic pain G89.29 [facility] [address] [place] [address] Sep, Other chronic pain G89.29 [facility] [address] [place] [address] Aug, Other chronic pain G89.29 [facility] [address] [place] [address] Aug, Other chronic pain G89.29 [facility] [address] [place] [facility] [place] [address] July, Other chronic pain G89.29 [facility] [address] [facility] [place] [address] July, [facility] [address] [facility] [place] [address] July, [facility] [address] [facility] [place] [address] July, Other chronic pain G89.29 [facility] [address] [facility] [place] [address] July, [facility] [address] [facility] [place] [address] July, Other chronic pain G89.29 [facility] [address] [facility] [place] [address] Jun, [facility] [address] [facility] [place] [address] Jun, Other chronic pain G89.29 [facility] [address] [facility] [place] [address] Jun, [facility] [address] [facility] [place] [address] Jun, Other chronic pain G89.29 [facility] [address] [facility] [place] [address] May, Other chronic pain G89.29 [facility] [address] [facility] [place] [address] May, [facility] [address] [facility] [place] [address] May, [facility] [address] [facility] [place] [address] May, [facility] [address] [facility] [place] [address] May, [facility] [address] [facility] [place] [address] May, [facility] [address] [facility] [place] [address] Apr, [facility] [address] [facility] [place] [address] Apr, [facility] [address] [facility] [place] [address] Apr, [facility] [address] [facility] [place] [address] Apr, [facility] [address] [facility] [place] [address] Apr, [facility] [address] [facility] [place] [address] Apr, [facility] [address] [facility] [place] [address] Apr, [facility] [address] [facility] [place] [address] Apr, [facility] [address] [facility] [place] [address] Apr, [facility] [address] [place] [address] Apr, Other chronic pain G89.29 [facility] [address] [place] [address] Apr, [facility] [address] [place] [id number] 15 Apr, 2018 Asymptomatic human immunodeficiency viru s (HIV) infection status Z21 ; Other chronic pain G89.29 and Screening for cardiovascular condition Z13.6 [facility] [address] [facility] [place] [address] Apr, [facility] [address] [place] [address] Apr, [facility] [address] [place] [address] Apr, [facility] [address] [facility] [place] [address] Apr, Other chronic pain G89.29 [facility] [address] [facility] [place] [address] Mar, Loss of appetite R63.0 [facility] [address] [facility] [place] [facility] [place] [address] Mar, [facility] [address] [facility] [place] [address] Mar, [facility] [address] [facility] [place] [address] Mar, [facility] [address] [facility] [place] [address] Mar, [facility] [address] [facility] [place] [address] Mar, Other chronic pain G89.29 [facility] [address] [facility] [place] [address] Mar, [facility] [address] [facility] [place] [address] Mar, [facility] [address] [facility] [place] [address] Mar, [facility] [address] [facility] [place] [address] Mar, Other chronic pain G89.29 [facility] [address] [facility] [place] [id number] Mar, Asymptomatic human immunodeficiency viru s (HIV) infection status Z21 [facility] [address] [place] [address] Mar, Other chronic pain G89.[address] [facility] [address] [place] [address] Mar, [facility] [address] [facility] [place] [address] Mar, [facility] [address] [facility] [place] [address] Feb, Other chronic pain G89.29 [facility] [address] [facility] [place] [address] Feb, Other chronic pain G89.29 [facility] [address] [facility] [place] [id number] Feb, Other chronic pain G89.29 [facility] [address] [place] [address] Feb, Asymptomatic human immunodeficiency viru s (HIV) infection status Z21 and Other chronic pain G89.29 [facility] [address] [place] [address] Jan, Other chronic pain G89.29 [facility] [address] [place] [address] Jan, Other chronic pain G89.29 [facility] [address] [place] [address] Jan, Asymptomatic human immunodeficiency viru s (HIV) infection status Z21 [facility] [address] [place] [address] Jan, Other chronic pain G89.29 [facility] [address] [place] [address] Jan, [facility] [address] [place] [address] Dec, Other chronic pain G89.29 [facility] [address] [place] [address] Dec, Other chronic pain G89.[address] [id number] Nov, Asymptomatic human immunodeficiency viru s (HIV) infection status Z21 ; Influenza vaccine needed Z23 and Other chronic pain G89.29 [facility] [address] [place] [address] Nov, Other chronic pain G89.29 [facility] [address] [place] [address] Oct, [facility] [address] [place] [address] Oct, Other chronic pain G89.29 [facility] [address] [place] [address] Oct, [address] [id number] Sep, Asymptomatic human immunodeficiency viru s (HIV) infection status Z21 ; Other chronic pain G89.29 and Generalized anxiety disorder F41.1 [facility] [address] [place] [address] Jun, [facility] [address] [place] [address] Jun, [facility] [address] [place] [address] Jun, [facility] [address] [place] [phone] Jun, Asymptomatic human immunodeficiency viru s (HIV) infection status Z21 ; Need for pneumococcal vaccine Z23 ; Major depressive disorder, recurrent, moderate F33.1 ; Loss of appetite R63.0 ; Other chronic pain G89.29 ; Other and unspecified noninfectious gastroenteritis and colitis K52.9 and Nausea R11.0 [facility] [address] [place] [address] Jun, [facility] [address] [place] [address] Jun, Acute right ankle pain M25.571 [facility] [address] [place] [address] May, [facility] [address] [place] [address] May, Acute right ankle pain M25.571 [facility] [address] [place] [address] Apr, [facility] [address] [place] [address] Apr, [facility] [address] [place] [address] Mar, Acute right ankle pain M25.571 [facility] [address] [place] [address] Mar, [facility] [address] [place] [address] Mar, [facility] [address] [place] [address] Mar, [facility] [address] [place] [address] Mar, [facility] [address] [place] [address] Mar, [facility] [address] [place] [address] Mar, Nausea and vomiting, intractability of v omiting not specified, unspecified vomiting type R11.2 [facility] [address] [place] [address] Mar, [facility] [address] [place] [address] Mar, Loss of appetite R63.0 [facility] [address] [place] [address] Mar, [facility] [address] [place] [address] Mar, [facility] [address] [place] [address] Mar, [facility] [address] [place] [address] Feb, Abscess L02.[address] [address] Feb, Acute right ankle pain M25.[address] [address] Feb, [facility] [address] [place] [address] Feb, [facility] [address] [place] [address] Feb, [facility] [address] [place] [address] Feb, Acute right ankle pain M25.[address] [address] Feb, Abscess L02.91 [facility] [address] [place] [id number] Jan, Asymptomatic human immunodeficiency viru s (HIV) infection status Z21 ; Influenza vaccine needed Z23 and Acute right ankle pain M25.[address] [address] Jan, Abscess L02.91 [facility] [address] [facility] [place] [address] Nov, [facility] [address] [facility] [place] [address] Nov, Abscess L02.91 [facility] [address] [facility] [place] [address] Nov, Anxiety F41.9 [facility] [address] [facility] [place] [address] 25 Nov, 2016 Acute right ankle pain M25.571 [facility] [address] [facility] [place] [address] 15 Nov, 2016 [facility] [address] [facility] [place] [address] 14 Nov, 2016 [facility] [address] [facility] [place] [address] 14 Nov, 2016 Hiccups R06.6 [facility] [address] [facility] [place] [address] 13 Nov, 2016 [facility] [address] [facility] [place] [address] 08 Nov, 2016 [facility] [address] [facility] [place] [address] 08 Nov, 2016 [facility] [address] [facility] [place] [address] 06 Nov, 2016 [facility] [address] [facility] [place] [address] Nov, [facility] [address] [facility] [place] [address] 05 Nov, 2016 [facility] [address] [facility] [place] [address] Oct, [facility] [address] [facility] [place] [address] Oct, [facility] [address] [facility] [place] [address] Oct, [facility] [address] [facility] [place] [address] Oct, Abscess L02.91 [facility] [address] [facility] [place] [address] Oct, [facility] [address] [facility] [place] [address] Oct, [facility] [address] [facility] [place] [address] Oct, [facility] [address] [facility] [place] [address] Oct, Abscess L02.91 and Acute right ankle ta n M25.571 [facility] [address] [place] [address] Oct, [facility] [address] [facility] [place] [address] Oct, [facility] [address] [place] [address] Oct, Abscess L02.91 [facility] [address] [place] [address] Oct, [facility] [address] [place] [address] Oct, [facility] [address] [place] [id number] Oct, Asymptomatic human immunodeficiency viru s (HIV) infection status Z21 ; 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 ; Nicotine dependence, cigarettes, uncomplicated F17.210 ; Iron deficiency anemia due to chronic blood loss D50.0 ; GERD with esophagitis K21.0 ; Major depressive disorder, recurrent, moderate F33.1 and Generalized anxiety disorder F41.1 [facility] [address] [place] [address] Sep, Major depressive disorder, recurrent, mo derate F33.1 [facility] [address] [place] [address] Sep, [facility] [address] [place] [address] Sep, [facility] [address] [place] [address] Sep, [facility] [address] [place] [address] Sep, [facility] [address] [place] [address] Sep, [facility] [address] [place] [address] Aug, [facility] [address] [place] [address] Aug, [facility] [address] [place] [address] Aug, [facility] [address] [place] [address] Aug, Loss of appetite R63.0 ; Major depressiv e disorder, recurrent, moderate F33.1 and Functional diarrhea K59.1 [facility] [address] [place] [address] Aug, Acute hemorrhoid K64.9 and Other osteoar thritis involving multiple joints M15.8 [facility] [address] [place] [address] Aug, Abscess L02.91 [facility] [address] [place] [address] July, Chronic diarrhea K52.[address] [address] July, [facility] [address] [place] [phone] July, Asymptomatic human immunodeficiency viru s (HIV) infection status Z21 ; Nicotine dependence, cigarettes, uncomplicated F17.210 ; Chronic diarrhea K52.9 ; Abscess L02.91 ; GERD with esophagitis K21.0 ; Anxiety F41.9 and 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 [facility] [address] [place] [address] Jun, Pain in joint involving multiple sites M 25.50 [facility] [address] [place] [address] Jun, [facility] [address] [place] [address] Jun, Pain in joint involving multiple sites M 25.[address] [address] Jun, Pain in joint involving multiple sites M 25.50 ; GERD with esophagitis K21.0 and Intractable hiccups R06.[address] [address] May, Pain in joint involving multiple sites M 25.[address] [address] Apr, Pain in joint involving multiple sites M 25.50 and Anxiety F41.[address] [address] Apr, [address] [address] Apr, Chronic diarrhea K52.9 and Pain in joint involving multiple sites M25.50 [facility] [address] [place] [id number] Apr, Asymptomatic human immunodeficiency viru s (HIV) infection status Z21 ; Mild intermittent asthma without complication J45.20 ; Iron deficiency anemia due to chronic blood loss D50.0 ; Screening, lipid Z13.220 ; Chronic diarrhea K52.9 ; Abscess L02.91 and Projectile vomiting with nausea R11.[address] [address] Feb, Acute hemorrhoid K64.[address] [address] Jan, [address] [address] Jan, Nausea and vomiting, intractability of v omiting not specified, unspecified vomiting type R11.2 and Acute right ankle pain M25.[address] [address] Jan, [address] [address] Jan, Asymptomatic human immunodeficiency viru s (HIV) infection status Z21 ; Iron deficiency anemia due to chronic blood loss D50.0 and Generalized abdominal pain R10.84 [facility] [address] [place] [id number] Dec, Asymptomatic human immunodeficiency viru s (HIV) infection status Z21 ; Mild intermittent asthma without complication J45.20 ; Influenza vaccine needed Z23 and Nicotine dependence, cigarettes, uncomplicated F17.[address] [facility] [address] [id number] 2 9 Oct, [address] [facility] [address] [id number] 2 8 Oct, 2013 [facility] [address] [place] [address] 08 May, 2012 [facility] [address] [place] [address] Feb, [facility] [address] [place] [address] 14 Nov, 2011 [facility] [address] [place] [address] Aug, [facility] [address] [place] [address] 17 Apr, 2011 [id number] [id number] 8 Jan, 2011 IMMUNIZATIONS No Known Immunizations SOCIAL HISTORY Never Assessed REASON FOR VISIT script requests PLAN OF CARE VITAL SIGNS MEDICATIONS Medication Instructions Dosage Frequency Start Date End Date Duration S tatus Percocet 7.5-325 mg Orally every 6 hrs 1 tablet as needed 6h 28 Apr, 2019 7 days Active RESULTS No Results PROCEDURES No Known procedures INSTRUCTIONS MEDICATIONS ADMINISTERED No Known Medications MEDICAL (GENERAL) HISTORY Type Description Date Medical History HIV Medical History Colitis Medical History chronic pain Medical History depression Surgical History No know Surgical history
--- OUTSIDE RECORDS SUMMARY | 2019-07-04 11:55 | XMS REPORT ---
Author Author ARTEMIO Li Organization [facility] Address [address], [place] [id number] Care Team Providers Care Dehydration Unit Operator Name Role Phone Shana Li Unavailable PROBLEMS Type Condition ICD9-CM Code MYG78-[id number] Code Onset Dates Condition S tatus SNOMED Code Problem Mild intermittent asthma without complication J45. 20 Active 252502289 Problem Iron deficiency anemia due to chronic blood loss D 50.0 Active 22621268 Problem Other osteoarthritis involving multiple joints M15 .8 Active 423132078 Problem Asymptomatic human immunodeficiency virus (HIV) infect ion status Z21 Active 90502561 Problem Other and unspecified noninfectious gastroenteritis an d colitis K52.9 Active 22247996 Problem Nicotine dependence, cigarettes, uncomplicated F17 .210 Active 63068510 Problem Other chronic pain G89.29 Active 8 6586743 Problem Generalized anxiety disorder F41.1 A ctive 17413751 Problem GERD with esophagitis K21.0 Active 903417858 Problem Functional diarrhea K59.1 Active 82077673 Problem Major depressive disorder, recurrent, moderate F33 .1 Active 609512192 Problem Loss of appetite R63.0 Active [id number] 76553 ALLERGIES No Information ENCOUNTERS Encounter Location Date Diagnosis [address] [address] May, Other chronic pain G89.[address] [address] 28 Apr, 2019 Other chronic pain G89.[address] [address] 17 Apr, [address] [address] 15 Apr, 2019 Other chronic pain G89.29 [facility] [address] [place] [id number] 07 Apr, 2019 Other chronic pain G89.29 and Asymptomat ic human immunodeficiency virus (HIV) infection status Z21 [facility] [address] [place] [address] Mar, [facility] [address] [place] [address] Mar, Other chronic pain G89.29 [facility] [address] [place] [address] Mar, [facility] [address] [place] [address] Mar, [facility] [address] [place] [address] Mar, Other chronic pain G89.29 [facility] [address] [place] [address] Mar, Other chronic pain G89.29 [facility] [address] [place] [address] Feb, Loss of appetite R63.0 [facility] [address] [place] [address] Feb, Other chronic pain G89.29 [facility] [address] [place] [address] Feb, Other chronic pain G89.29 [facility] [address] [place] [address] Feb, Other chronic pain G89.29 [facility] [address] [place] [address] Jan, Other chronic pain G89.29 [facility] [address] [place] [phone] Jan, Asymptomatic human immunodeficiency viru s (HIV) infection status Z21 ; GERD with esophagitis K21.0 ; Influenza vaccine needed Z23 and Other chronic pain G89.29 [facility] [address] [place] [address] Dec, Other chronic pain G89.29 [facility] [address] [place] [address] Dec, Other chronic pain G89.29 [facility] [address] [place] [address] Dec, Other chronic pain G89.29 [facility] [address] [place] [address] Dec, Other chronic pain G89.29 [facility] [address] [place] [address] Nov, Other chronic pain G89.29 [facility] [address] [place] [address] Nov, Other chronic pain G89.29 [facility] [address] [place] [address] Oct, Other chronic pain G89.29 [facility] [address] [place] [address] Oct, Other chronic pain G89.29 [facility] [address] [place] [address] Oct, Other chronic pain G89.29 [facility] [address] [place] [address] Oct, Other chronic pain G89.29 [facility] [address] [place] [address] Sep, Other chronic pain G89.29 [facility] [address] [place] [address] Sep, Other chronic pain G89.29 [facility] [address] [place] [phone] Sep, Asymptomatic human immunodeficiency viru s (HIV) infection status Z21 and GERD with esophagitis K21.0 [facility] [address] [place] [address] Sep, [facility] [address] [place] [address] Sep, Loss of appetite R63.0 and Other chronic pain G89.29 [facility] [address] [place] [address] Sep, Other chronic pain G89.29 [facility] [address] [place] [address] Aug, Other chronic pain G89.29 [facility] [address] [place] [facility] [address] Aug, Other chronic pain G89.29 [facility] [address] [place] [facility] [place] [address] July, Other chronic pain G89.29 [facility] [address] [place] [facility] [address] July, [facility] [address] [place] [facility] [address] July, [facility] [address] [place] [facility] [address] July, Other chronic pain G89.29 [facility] [address] [place] [facility] [address] July, [facility] [address] [place] [facility] [place] [address] July, Other chronic pain G89.29 [facility] [address] [place] [facility] [address] Jun, [facility] [address] [place] [facility] [place] [address] Jun, Other chronic pain G89.29 [facility] [address] [place] [facility] [address] Jun, [facility] [address] [place] [facility] [address] Jun, Other chronic pain G89.29 [facility] [address] [place] [facility] [address] May, Other chronic pain G89.29 [facility] [address] [place] [facility] [place] [address] May, [facility] [address] [place] [facility] [address] May, [facility] [address] [place] [facility] [address] May, [facility] [address] [place] [facility] [address] May, [facility] [address] [facility] [address] May, [facility] [address] [facility] [address] Apr, [facility] [address] [facility] [address] Apr, [facility] [address] [facility] [address] Apr, [facility] [address] [place] [facility] [address] Apr, [facility] [address] [facility] [address] Apr, [facility] [address] [facility] [address] Apr, [facility] [address] [facility] [address] Apr, [facility] [address] [facility] [address] Apr, [facility] [address] [facility] [address] Apr, [facility] [address] [facility] [address] Apr, Other chronic pain G89.29 [facility] [address] [facility] [address] Apr, [facility] [address] [place] [phone] Apr, Asymptomatic human immunodeficiency viru s (HIV) infection status Z21 ; Other chronic pain G89.29 and Screening for cardiovascular condition Z13.6 [facility] [address] [facility] [address] Apr, [facility] [address] [facility] [address] Apr, [facility] [address] [facility] [address] Apr, [facility] [address] [facility] [place] [address] Apr, Other chronic pain G89.29 [facility] [address] [facility] [address] Mar, Loss of appetite R63.0 [facility] [address] [place] [facility] [address] Mar, [facility] [address] [facility] [place] [address] Mar, [facility] [address] [facility] [address] Mar, [facility] [address] [facility] [address] Mar, [facility] [address] [facility] [address] Mar, Other chronic pain G89.29 [facility] [address] [facility] [address] Mar, [facility] [address] [facility] [address] Mar, [facility] [address] [place] [address] Mar, [facility] [address] [place] [address] Mar, Other chronic pain G89.29 [facility] [address] [facility] [place] [id number] Mar, Asymptomatic human immunodeficiency viru s (HIV) infection status Z21 [facility] [address] [place] [address] Mar, Other chronic pain G89.29 [facility] [address] [place] [place] [address] Mar, [facility] [address] [place] [address] Mar, [facility] [address] [place] [address] Feb, Other chronic pain G89.29 [facility] [address] [place] [address] Feb, Other chronic pain G89.29 [facility] [address] [place], [place] [address] [place] [id number] Feb, Other chronic pain G89.29 [facility] [address] [id number] Feb, Asymptomatic human immunodeficiency viru s (HIV) infection status Z21 and Other chronic pain G89.29 [facility] [address] [place] [address] Jan, Other chronic pain G89.29 [facility] [address] [place] [address] Jan, Other chronic pain G89.29 [facility] [address] [place] [address] Jan, Asymptomatic human immunodeficiency viru s (HIV) infection status Z21 [facility] [address] [place] [address] Jan, Other chronic pain G89.[address] [address] Jan, [address] [address] Dec, Other chronic pain G89.[address] [address] Dec, Other chronic pain G89.[address] [id number] Nov, Asymptomatic human immunodeficiency viru s (HIV) infection status Z21 ; Influenza vaccine needed Z23 and Other chronic pain G89.29 [facility] [address] [place] [address] Nov, Other chronic pain G89.29 [facility] [address] [place] [address] Oct, [facility] [address] [place] [address] Oct, Other chronic pain G89.29 [facility] [address] [place] [address] Oct, [address] [phone] Sep, Asymptomatic human immunodeficiency viru s (HIV) infection status Z21 ; Other chronic pain G89.29 and Generalized anxiety disorder F41.[address] [address] Jun, [facility] [address] [place] [address] Jun, [facility] [address] [place] [address] Jun, [facility] [address] [place] [phone] Jun, Asymptomatic human immunodeficiency viru s (HIV) infection status Z21 ; Need for pneumococcal vaccine Z23 ; Major depressive disorder, recurrent, moderate F33.1 ; Loss of appetite R63.0 ; Other chronic pain G89.29 ; Other and unspecified noninfectious gastroenteritis and colitis K52.9 and Nausea R11.[address] [address] Jun, [address] [address] Jun, Acute right ankle pain M25.[address] [address] May, [address] [address] May, Acute right ankle pain M25.[address] [address] Apr, [address] [address] Apr, [address] [address] Mar, Acute right ankle pain M25.[address] [address] Mar, [facility] [address] [address] Mar, [address] [address] Mar, [facility] [address] [facility] [address] Mar, [facility] [address] [facility] [address] Mar, [facility] [address] [facility] [address] Mar, Nausea and vomiting, intractability of v omiting not specified, unspecified vomiting type R11.2 [facility] [address] [facility] [address] Mar, [facility] [address] [facility] [address] Mar, Loss of appetite R63.0 [facility] [address] [facility] [address] Mar, [facility] [address] [facility] [address] Mar, [facility] [address] [facility] [address] Mar, [facility] [address] [facility] [address] Feb, Abscess L02.91 [facility] [address] [place] [address], [place] [address] Feb, Acute right ankle pain M25.571 [facility] [address] [place] [address] Feb, [facility] [address] [facility] [address] Feb, [facility] [address] [place] [address] Feb, [facility] [address] [facility] [place] [address] Feb, Acute right ankle pain M25.571 [facility] [address] [place] [address], [place] [address] Feb, Abscess L02.91 [facility] [address] [place] [id number] Jan, Asymptomatic human immunodeficiency viru s (HIV) infection status Z21 ; Influenza vaccine needed Z23 and Acute right ankle pain M25.571 [facility] [address] [place] [facility] [address] Jan, Abscess L02.91 [facility] [address] [place] [facility] [address] Nov, [facility] [address] [place] [facility] [address] Nov, Abscess L02.91 [facility] [address] [place] [facility] [address] Nov, Anxiety F41.9 [facility] [address] [place] [facility] [address] Nov, Acute right ankle pain M25.571 [facility] [address] [place] [facility] [address] 15 Nov, 2016 [facility] [address] [place] [facility] [address] Nov, [facility] [address] [place] [facility] [address] Nov, Hiccups R06.6 [facility] [address] [facility] [address] 13 Nov, 2016 [facility] [address] [place] [facility] [address] Nov, [facility] [address] [place] [address] Nov, [facility] [address] [place] [facility] [address] Nov, [facility] [address] [facility] [address] Nov, [facility] [address] [facility] [address] Nov, [facility] [address] [place] [facility] [address] Oct, [facility] [address] [place] [facility] [address] Oct, [facility] [address] [place] [address] Oct, [facility] [address] [place] [address] Oct, Abscess L02.91 [facility] [address] [place] [address] Oct, [facility] [address] [place] [address] Oct, [facility] [address] [place] [address] Oct, [facility] [address] [place] [address] Oct, Abscess L02.91 and Acute right ankle ta n M25.571 [facility] [address] [place] [address] Oct, [facility] [address] [place] [address] Oct, [facility] [address] [place] [address] Oct, Abscess L02.91 [facility] [address] [place] [address] Oct, [facility] [address] [place] [address] Oct, [facility] [address] [place], [place] [phone] Oct, Asymptomatic human immunodeficiency viru s (HIV) infection status Z21 ; [facility] current use of opiate analgesic Z79.891 ; Nicotine dependence, cigarettes, uncomplicated F17.210 ; Iron deficiency anemia due to chronic blood loss D50.0 ; GERD with esophagitis K21.0 ; Major depressive disorder, recurrent, moderate F33.1 and Generalized anxiety disorder F41.1 [facility] [address] [place] [address] Sep, Major depressive disorder, recurrent, mo derate F33.1 [facility] [address] [place] [address] Sep, [facility] [address] [place] [address] Sep, [facility] [address] [place] [address] Sep, [facility] [address] [place] [address] Sep, [facility] [address] [place] [address] Sep, [facility] [address] [place] [address] Aug, [facility] [address] [place] [address] Aug, [facility] [address] [place] [address] Aug, [address] [address] Aug, Loss of appetite R63.0 ; Major depressiv e disorder, recurrent, moderate F33.1 and Functional diarrhea K59.[address] [address] Aug, Acute hemorrhoid K64.9 and Other osteoar thritis involving multiple joints M15.[address] [address] Aug, Abscess L02.[address] [address] July, Chronic diarrhea K52.[address] [address] July, [facility] [address] [place] [phone] July, Asymptomatic human immunodeficiency viru s (HIV) infection status Z21 ; Nicotine dependence, cigarettes, uncomplicated F17.210 ; Chronic diarrhea K52.9 ; Abscess L02.91 ; GERD with esophagitis K21.0 ; Anxiety F41.9 and 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 [address] Jun, Pain in joint involving multiple sites M 25.[address] [address] Jun, [address] [address] Jun, Pain in joint involving multiple sites M 25.[address] [address] Jun, Pain in joint involving multiple sites M 25.50 ; GERD with esophagitis K21.0 and Intractable hiccups R06.[address] [address] May, Pain in joint involving multiple sites M 25.[address] [address] Apr, Pain in joint involving multiple sites M 25.50 and Anxiety F41.[address] [address] Apr, [address] [address] Apr, Chronic diarrhea K52.9 and Pain in joint involving multiple sites M25.50 [facility] [address] [place] [id number] Apr, Asymptomatic human immunodeficiency viru s (HIV) infection status Z21 ; Mild intermittent asthma without complication J45.20 ; Iron deficiency anemia due to chronic blood loss D50.0 ; Screening, lipid Z13.220 ; Chronic diarrhea K52.9 ; Abscess L02.91 and Projectile vomiting with nausea R11.[address] [address] Feb, Acute hemorrhoid K64.[address] [address] Jan, [address] [address] Jan, Nausea and vomiting, intractability of v omiting not specified, unspecified vomiting type R11.2 and Acute right ankle pain M25.[address] [address] Jan, [address] [address] Jan, Asymptomatic human immunodeficiency viru s (HIV) infection status Z21 ; Iron deficiency anemia due to chronic blood loss D50.0 and Generalized abdominal pain R10.84 [facility] [address] [place] [id number] Dec, Asymptomatic human immunodeficiency viru s (HIV) infection status Z21 ; Mild intermittent asthma without complication J45.20 ; Influenza vaccine needed Z23 and Nicotine dependence, cigarettes, uncomplicated F17.210 [facility] [address] [id number] 9 Oct, 2013 [facility] [address] [id number] 2 8 Oct, 2013 [facility] [address] [place] [address] May, [facility] [address] [place] [address] Feb, [facility] [address] [place] [address] 14 Nov, 2011 [facility] [address] [place] [address] Aug, [facility] [address] [place] [address] Apr, [facility] [address] [id number] Jan, IMMUNIZATIONS No Known Immunizations SOCIAL HISTORY Never Assessed REASON FOR VISIT script request PLAN OF CARE VITAL SIGNS MEDICATIONS Medication [...]
--- OUTSIDE RECORDS SUMMARY | 2019-07-04 11:55 | XMS REPORT ---
Author Author ARTEMIO Li Organization [facility] Address [address] [place], [place] [id number] Care Team Providers Care Senior Assistant Manager Name Role Phone Shana Li Unavailable PROBLEMS Type Condition ICD9-CM Code [id number] Code Onset Dates Condition S tatus SNOMED Code Problem Mild intermittent asthma without complication J45. 20 Active 948089389 Problem Iron deficiency anemia due to chronic blood loss D 50.0 Active 65108771 Problem Other osteoarthritis involving multiple joints M15 .8 Active 167137401 Problem Asymptomatic human immunodeficiency virus (HIV) infect ion status Z21 Active 93456910 Problem Other and unspecified noninfectious gastroenteritis an d colitis K52.9 Active 77672588 Problem Nicotine dependence, cigarettes, uncomplicated F17 .210 Active 46049826 Problem Other chronic pain G89.29 Active 8 5918982 Problem Generalized anxiety disorder F41.1 A ctive 91062791 Problem GERD with esophagitis K21.0 Active 847519192 Problem Functional diarrhea K59.1 Active 28814839 Problem Major depressive disorder, recurrent, moderate F33 .1 Active 029762626 Problem Loss of appetite R63.0 Active 798 20204 ALLERGIES No Information ENCOUNTERS Encounter Location Date Diagnosis [address] [address] 15 Apr, 2019 Other chronic pain G89.29 [facility] [address] [place] [id number] 07 Apr, 2019 Other chronic pain G89.29 and Asymptomat ic human immunodeficiency virus (HIV) infection status Z21 [address] [address] Mar, [address] [address] Mar, Other chronic pain G89.[address] [address] Mar, [facility] [address] [place] [address] Mar, [facility] [address] [place] [address] Mar, Other chronic pain G89.29 [facility] [address] [place] [address] Mar, Other chronic pain G89.29 [facility] [address] [place] [address] Feb, Loss of appetite R63.0 [facility] [address] [place] [address] Feb, Other chronic pain G89.29 [facility] [address] [place] [address] Feb, Other chronic pain G89.29 [facility] [address] [place] [address] Feb, Other chronic pain G89.29 [facility] [address] [place] [address] Jan, Other chronic pain G89.29 [facility] [address] [place] [id number] Jan, Asymptomatic human immunodeficiency viru s (HIV) infection status Z21 ; GERD with esophagitis K21.0 ; Influenza vaccine needed Z23 and Other chronic pain G89.29 [facility] [address] [place] [address] Dec, Other chronic pain G89.29 [facility] [address] [place] [address] Dec, Other chronic pain G89.29 [facility] [address] [place] [address] Dec, Other chronic pain G89.29 [facility] [address] [place] [address] Dec, Other chronic pain G89.29 [facility] [address] [place] [address] Nov, Other chronic pain G89.29 [facility] [address] [place] [address] Nov, Other chronic pain G89.29 [facility] [address] [place] [address] Oct, Other chronic pain G89.29 [facility] [address] [place] [address] Oct, Other chronic pain G89.29 [facility] [address] [place] [address] Oct, Other chronic pain G89.29 [facility] [address] [place] [address] Oct, Other chronic pain G89.29 [facility] [address] [place] [address] Sep, Other chronic pain G89.29 [facility] [address] [place] [address] Sep, Other chronic pain G89.29 [facility] [address] [place] [id number] Sep, Asymptomatic human immunodeficiency viru s (HIV) infection status Z21 and GERD with esophagitis K21.0 [facility] [address] [place] [address] Sep, [facility] [address] [place] [address] Sep, Loss of appetite R63.0 and Other chronic pain G89.29 [facility] [address] [place] [address] Sep, Other chronic pain G89.29 [facility] [address] [place] [address] Aug, Other chronic pain G89.29 [facility] [address] [place] [address] Aug, Other chronic pain G89.29 [facility] [address] [place] [address] July, Other chronic pain G89.29 [facility] [address] [facility] [place] [address] July, [facility] [address] [facility] [place] [address] July, [facility] [address] [facility] [place] [address] July, Other chronic pain G89.29 [facility] [address] [facility] [place] [address] July, [facility] [address] [facility] [place] [address] July, Other chronic pain G89.29 [facility] [address] [facility] [place] [address] Jun, [facility] [address] [facility] [place] [address] Jun, Other chronic pain G89.29 [facility] [address] [facility] [place] [address] Jun, [facility] [address] [facility] [place] [address] Jun, Other chronic pain G89.29 [facility] [address] [facility] [place] [address] May, Other chronic pain G89.29 [facility] [address] [facility] [place] [address] May, [facility] [address] [facility] [place] [address] May, [facility] [address] [facility] [place] [address] May, [facility] [address] [facility] [place] [address] May, [facility] [address] [facility] [place] [address] May, [facility] [address] [facility] [place] [address] Apr, [facility] [address] [facility] [place] [address] Apr, [facility] [address] [facility] [place] [address] Apr, [facility] [address] [place] [address] Apr, [facility] [address] [place] [address] Apr, [facility] [address] [place] [address] Apr, [facility] [address] [place] [address] Apr, [facility] [address] [place] [address] Apr, [facility] [address] [place] [address] Apr, [facility] [address] [place] [address] Apr, Other chronic pain G89.29 [facility] [address] [place] [address] Apr, [facility] [address] [place] [id number] Apr, Asymptomatic human immunodeficiency viru s (HIV) infection status Z21 ; Other chronic pain G89.29 and Screening for cardiovascular condition Z13.6 [facility] [address] [place] [address] Apr, [facility] [address] [place] [address] Apr, [facility] [address] [place] [address] Apr, [facility] [address] [place] [address] Apr, Other chronic pain G89.29 [facility] [address] [place] [address] Mar, Loss of appetite R63.0 [facility] [address] [place] [address] Mar, [facility] [address] [place] [address] Mar, [facility] [address] [facility] [place] [address] Mar, [facility] [address] [facility] [place] [address] Mar, [facility] [address] [facility] [place] [address] Mar, Other chronic pain G89.29 [facility] [address] [facility] [place] [address] Mar, [facility] [address] [facility] [place] [address] Mar, [facility] [address] [facility] [place] [address] Mar, [facility] [address] [facility] [place] [address] Mar, Other chronic pain G89.29 [facility] [address] [facility] [place] [id number] Mar, Asymptomatic human immunodeficiency viru s (HIV) infection status Z21 [facility] [address] [facility] [place] [address] Mar, Other chronic pain G89.29 [facility] [address] [place] [address] Mar, [facility] [address] [place] [address] Mar, [facility] [address] [place] [address] Feb, Other chronic pain G89.29 [facility] [address] [facility] [place] [address] Feb, Other chronic pain G89.29 [facility] [address] [facility] [place] [id number] Feb, Other chronic pain G89.29 [facility] [address] [place] [id number] Feb, Asymptomatic human immunodeficiency viru s (HIV) infection status Z21 and Other chronic pain G89.29 [facility] [address] [facility] [place] [address] Jan, Other chronic pain G89.29 [facility] [address] [place] [address] Jan, Other chronic pain G89.29 [facility] [address] [place] [address] Jan, Asymptomatic human immunodeficiency viru s (HIV) infection status Z21 [facility] [address] [place] [address] Jan, Other chronic pain G89.29 [facility] [address] [place] [address] Jan, [facility] [address] [place] [address] Dec, Other chronic pain G89.29 [facility] [address] [place] [address] Dec, Other chronic pain G89.29 [facility] [address] [place] [id number] Nov, Asymptomatic human immunodeficiency viru s (HIV) infection status Z21 ; Influenza vaccine needed Z23 and Other chronic pain G89.29 [facility] [address] [place] [address] Nov, Other chronic pain G89.29 [facility] [address] [place] [address] Oct, [facility] [address] [place] [address] Oct, Other chronic pain G89.29 [facility] [address] [place] [address] Oct, [facility] [address] [place] [id number] Sep, Asymptomatic human immunodeficiency viru s (HIV) infection status Z21 ; Other chronic pain G89.29 and Generalized anxiety disorder F41.1 [facility] [address] [place] [address] Jun, [facility] [address] [place] [address] Jun, [facility] [address] [place] [address] Jun, [facility] [address] [place] [id number] Jun, Asymptomatic human immunodeficiency viru s (HIV) infection status Z21 ; Need for pneumococcal vaccine Z23 ; Major depressive disorder, recurrent, moderate F33.1 ; Loss of appetite R63.0 ; Other chronic pain G89.29 ; Other and unspecified noninfectious gastroenteritis and colitis K52.9 and Nausea R11.0 [facility] [address] [place] [address] Jun, [facility] [address] [place] [address] Jun, Acute right ankle pain M25.571 [facility] [address] [place] [address] May, [facility] [address] [place] [address] May, Acute right ankle pain M25.571 [facility] [address] [place] [address] Apr, [facility] [address] [place] [address] Apr, [facility] [address] [place] [address] Mar, Acute right ankle pain M25.571 [facility] [address] [address] Mar, [facility] [address] [place] [address] Mar, [facility] [address] [place] [address] Mar, [facility] [address] [place] [address] Mar, [facility] [address] [place] [address] Mar, [facility] [address] [place] [address] Mar, Nausea and vomiting, intractability of v omiting not specified, unspecified vomiting type R11.2 [facility] [address] [place] [address] Mar, [facility] [address] [place] [address] Mar, Loss of appetite R63.0 [facility] [address] [place] [address] Mar, [facility] [address] [place] [address] Mar, [facility] [address] [place] [address] Mar, [facility] [address] [place] [address] Feb, Abscess L02.[address] [address] Feb, Acute right ankle pain M25.[address] [address] Feb, [facility] [address] [place] [address] Feb, [facility] [address] [place] [address] Feb, [facility] [address] [place] [address] Feb, Acute right ankle pain M25.[address] [address] Feb, Abscess L02.91 [facility] [address] [place] [id number] Jan, Asymptomatic human immunodeficiency viru s (HIV) infection status Z21 ; Influenza vaccine needed Z23 and Acute right ankle pain M25.571 [facility] [address] [place] [address] Jan, Abscess L02.91 [facility] [address] [place] [address] Nov, [facility] [address] [place] [address] Nov, Abscess L02.91 [facility] [address] [facility] [place] [address] Nov, Anxiety F41.9 [facility] [address] [facility] [place] [address] 25 Nov, 2016 Acute right ankle pain M25.571 [facility] [address] [facility] [place] [address] 15 Nov, 2016 [facility] [address] [facility] [place] [address] 14 Nov, 2016 [facility] [address] [facility] [place] [address] 14 Nov, 2016 Hiccups R06.6 [facility] [address] [facility] [place] [address] 13 Nov, 2016 [facility] [address] [facility] [place] [address] 08 Nov, 2016 [facility] [address] [facility] [place] [address] 08 Nov, 2016 [facility] [address] [facility] [place] [address] 06 Nov, 2016 [facility] [address] [facility] [place] [address] Nov, [facility] [address] [facility] [place] [address] Nov, [facility] [address] [facility] [place] [address] Oct, [facility] [address] [facility] [place] [address] Oct, [facility] [address] [facility] [place] [address] Oct, [facility] [address] [facility] [place] [address] Oct, Abscess L02.91 [facility] [address] [facility] [place] [address] Oct, [facility] [address] [facility] [place] [address] Oct, [facility] [address] [place] [address] Oct, [facility] [address] [place] [address] Oct, Abscess L02.91 and Acute right ankle ta n M25.571 [facility] [address] [place] [address] Oct, [facility] [address] [facility] [place] [address] Oct, [facility] [address] [place] [address] Oct, Abscess L02.91 [facility] [address] [place] [address] Oct, [facility] [address] [place] [address] Oct, [facility] [address] [place] [id number] Oct, Asymptomatic human immunodeficiency viru s (HIV) infection status Z21 ; [facility] current use of opiate analgesic Z79.891 ; Nicotine dependence, cigarettes, uncomplicated F17.210 ; Iron deficiency anemia due to chronic blood loss D50.0 ; GERD with esophagitis K21.0 ; Major depressive disorder, recurrent, moderate F33.1 and Generalized anxiety disorder F41.1 [facility] [address] [place] [address] Sep, Major depressive disorder, recurrent, mo derate F33.1 [facility] [address] [place] [address] Sep, [facility] [address] [place] [address] Sep, [facility] [address] [place] [address] Sep, [facility] [address] [place] [address] Sep, [facility] [address] [place] [address] Sep, [facility] [address] [place] [address] Aug, [facility] [address] [place] [address] Aug, [facility] [address] [place] [address] Aug, [address] [address] Aug, Loss of appetite R63.0 ; Major depressiv e disorder, recurrent, moderate F33.1 and Functional diarrhea K59.1 [facility] [address] [place] [address] Aug, Acute hemorrhoid K64.9 and Other osteoar thritis involving multiple joints M15.[address] [address] Aug, Abscess L02.[address] [address] July, Chronic diarrhea K52.[address] [address] July, [facility] [address] [place] [id number] July, Asymptomatic human immunodeficiency viru s (HIV) infection status Z21 ; Nicotine dependence, cigarettes, uncomplicated F17.210 ; Chronic diarrhea K52.9 ; Abscess L02.91 ; GERD with esophagitis K21.0 ; Anxiety F41.9 and 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 [facility] [address] [place] [address] Jun, Pain in joint involving multiple sites M 25.[address] [address] Jun, [facility] [address] [place] [address] Jun, Pain in joint involving multiple sites M 25.50 [facility] [address] [place] [address] Jun, Pain in joint involving multiple sites M 25.50 ; GERD with esophagitis K21.0 and Intractable hiccups R06.[address] [address] May, Pain in joint involving multiple sites M 25.[address] [address] 28 Apr, 2016 Pain in joint involving multiple sites M 25.50 and Anxiety F41.[address] [address] 17 Apr, [address] [address] Apr, Chronic diarrhea K52.9 and Pain in joint involving multiple sites M25.[address] [id number] Apr, Asymptomatic human immunodeficiency viru s (HIV) infection status Z21 ; Mild intermittent asthma without complication J45.20 ; Iron deficiency anemia due to chronic blood loss D50.0 ; Screening, lipid Z13.220 ; Chronic diarrhea K52.9 ; Abscess L02.91 and Projectile vomiting with nausea R11.[address] [address] Feb, Acute hemorrhoid K64.[address] [address] Jan, [address] [address] Jan, Nausea and vomiting, intractability of v omiting not specified, unspecified vomiting type R11.2 and Acute right ankle pain M25.[address] [address] Jan, [address] [address] Jan, Asymptomatic human immunodeficiency viru s (HIV) infection status Z21 ; Iron deficiency anemia due to chronic blood loss D50.0 and Generalized abdominal pain R10.[address] [id number] Dec, Asymptomatic human immunodeficiency viru s (HIV) infection status Z21 ; Mild intermittent asthma without complication J45.20 ; Influenza vaccine needed Z23 and Nicotine dependence, cigarettes, uncomplicated F17.210 [facility] [address] [facility] [address] [place] [id number] 2 9 Oct, 2013 [facility] [address] [facility] [address] [place] [id number] 2 8 Oct, 2013 [facility] [address] [place] [address] 08 May, 2012 [facility] [address] [place] [address] Feb, [facility] [address] [place] [address] Nov, [facility] [address] [place] [address] Aug, [facility] [address] [place] [address] Apr, [facility] [address] [facility] [address] [place], [place] [id number] 1 Jan, IMMUNIZATIONS No Known Immunizations SOCIAL HISTORY Never Assessed REASON FOR VISIT script request PLAN OF CARE VITAL SIGNS MEDICATIONS Medication Instructions Dosage Frequency Start Date End Date Duration S tatus Percocet 7.5-325 mg Orally every 6 hrs 1 tablet as needed 6h Apr, 7 days Active RESULTS No Results PROCEDURES No Known procedures INSTRUCTIONS MEDICATIONS ADMINISTERED No Known Medications MEDICAL (GENERAL) HISTORY Type Description Date Medical History HIV Medical History Colitis Medical History chronic pain Medical History depression Surgical History No know Surgical history
--- OUTSIDE RECORDS SUMMARY | 2019-07-04 11:55 | XMS REPORT ---
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 20 Active 915776579 Problem Iron deficiency anemia due to chronic blood loss D 50.0 Active 87094464 Problem Other osteoarthritis involving multiple joints M15 .8 Active 581995975 Problem Asymptomatic human immunodeficiency virus (HIV) infect ion status Z21 Active 52016994 Problem Other and unspecified noninfectious gastroenteritis an d colitis K52.9 Active 78762081 Problem Nicotine dependence, cigarettes, uncomplicated F17 .210 Active 31081776 Problem Other chronic pain G89.29 Active 8 7366773 Problem Generalized anxiety disorder F41.1 A ctive 31086995 Problem GERD with esophagitis K21.0 Active 611699767 Problem Functional diarrhea K59.1 Active 04035223 Problem Major depressive disorder, recurrent, moderate F33 .1 Active 104451869 Problem Loss of appetite R63.0 Active 798 47113 ALLERGIES No Information ENCOUNTERS Encounter Location Date Diagnosis [facility] [address] [place] [address] Apr, [facility] [address] [place] [address] Apr, Other chronic pain G89.29 [facility] [address] [place], [place] [id number] Apr, Other chronic pain G89.29 and Asymptomat ic human immunodeficiency virus (HIV) infection status Z21 [facility] [address] [place] [address] Mar, [facility] [address] [place] [address] Mar, Other chronic pain G89.29 [facility] [address] [place] [address] Mar, [facility] [address] [place] [address] Mar, [facility] [address] [place] [address] Mar, Other chronic pain G89.29 [facility] [address] [place] [address] Mar, Other chronic pain G89.29 [facility] [address] [place] [address] Feb, Loss of appetite R63.0 [facility] [address] [place] [address] Feb, Other chronic pain G89.29 [facility] [address] [place] [address] Feb, Other chronic pain G89.29 [facility] [address] [place] [address] Feb, Other chronic pain G89.29 [facility] [address] [place] [address] Jan, Other chronic pain G89.29 [facility] [address] [place] [id number] Jan, Asymptomatic human immunodeficiency viru s (HIV) infection status Z21 ; GERD with esophagitis K21.0 ; Influenza vaccine needed Z23 and Other chronic pain G89.29 [facility] [address] [place] [address] Dec, Other chronic pain G89.29 [facility] [address] [place] [address] Dec, Other chronic pain G89.29 [facility] [address] [place] [address] Dec, Other chronic pain G89.29 [facility] [address] [place] [address] Dec, Other chronic pain G89.29 [facility] [address] [place] [address] Nov, Other chronic pain G89.29 [facility] [address] [place] [address] Nov, Other chronic pain G89.29 [facility] [address] [place] [address] Oct, Other chronic pain G89.29 [facility] [address] [place] [address] Oct, Other chronic pain G89.29 [facility] [address] [place] [address] Oct, Other chronic pain G89.29 [facility] [address] [place] [address] Oct, Other chronic pain G89.29 [facility] [address] [place] [address] Sep, Other chronic pain G89.29 [facility] [address] [place] [address] Sep, Other chronic pain G89.29 [facility] [address] [place] [id number] Sep, Asymptomatic human immunodeficiency viru s (HIV) infection status Z21 and GERD with esophagitis K21.0 [facility] [address] [place] [address] Sep, [facility] [address] [place] [address] Sep, Loss of appetite R63.0 and Other chronic pain G89.29 [facility] [address] [place] [address] Sep, Other chronic pain G89.29 [facility] [address] [place] [address] Aug, Other chronic pain G89.29 [facility] [address] [place] [address] Aug, Other chronic pain G89.29 [facility] [address] [place] [address] July, Other chronic pain G89.29 [facility] [address] [facility] [place] [address] July, [facility] [address] [facility] [place] [address] July, [facility] [address] [facility] [place] [address] July, Other chronic pain G89.29 [facility] [address] [facility] [place] [address] July, [facility] [address] [facility] [place] [address] July, Other chronic pain G89.29 [facility] [address] [facility] [place] [address] Jun, [facility] [address] [facility] [place] [address] Jun, Other chronic pain G89.29 [facility] [address] [facility] [place] [address] Jun, [facility] [address] [facility] [place] [address] Jun, Other chronic pain G89.29 [facility] [address] [facility] [place] [address] May, Other chronic pain G89.29 [facility] [address] [facility] [place] [address] May, [facility] [address] [facility] [place] [address] May, [facility] [address] [facility] [place] [address] May, [facility] [address] [facility] [place] [address] May, [facility] [address] [facility] [place] [address] May, [facility] [address] [facility] [place] [address] Apr, [facility] [address] [facility] [place] [address] Apr, [facility] [address] [place] [address] Apr, [facility] [address] [place] [address] Apr, [facility] [address] [place] [address] Apr, [facility] [address] [place] [address] Apr, [facility] [address] [place] [address] Apr, [facility] [address] [place] [address] Apr, [facility] [address] [place] [address] Apr, [facility] [address] [place] [address] Apr, Other chronic pain G89.29 [facility] [address] [place] [address] Apr, [facility] [address] [place] [id number] Apr, Asymptomatic human immunodeficiency viru s (HIV) infection status Z21 ; Other chronic pain G89.29 and Screening for cardiovascular condition Z13.6 [facility] [address] [place] [address] Apr, [facility] [address] [place] [address] Apr, [facility] [address] [place] [address] Apr, [facility] [address] [place] [address] Apr, Other chronic pain G89.29 [facility] [address] [place] [address] Mar, Loss of appetite R63.0 [facility] [address] [place] [address] Mar, [facility] [address] [facility] [place] [address] Mar, [facility] [address] [facility] [place] [address] Mar, [facility] [address] [facility] [place] [address] Mar, [facility] [address] [facility] [place] [address] Mar, Other chronic pain G89.29 [facility] [address] [facility] [place] [address] Mar, [facility] [address] [facility] [place] [address] Mar, [facility] [address] [facility] [place] [address] Mar, [facility] [address] [facility] [place] [address] Mar, Other chronic pain G89.29 [facility] [address] [facility] [place] [id number] Mar, Asymptomatic human immunodeficiency viru s (HIV) infection status Z21 [facility] [address] [facility] [place] [address] Mar, Other chronic pain G89.[address] [facility] [address] [facility] [place] [address] Mar, [facility] [address] [facility] [place] [address] Mar, [facility] [address] [facility] [place] [address] Feb, Other chronic pain G89.29 [facility] [address] [facility] [place] [address] Feb, Other chronic pain G89.29 [facility] [address] [facility] [place] [id number] Feb, Other chronic pain G89.29 [facility] [address] [place] [id number] Feb, Asymptomatic human immunodeficiency viru s (HIV) infection status Z21 and Other chronic pain G89.29 [facility] [address] [place] [address] Jan, Other chronic pain G89.29 [facility] [address] [place] [address] Jan, Other chronic pain G89.29 [facility] [address] [place] [address] Jan, Asymptomatic human immunodeficiency viru s (HIV) infection status Z21 [facility] [address] [place] [address] Jan, Other chronic pain G89.29 [facility] [address] [place] [address] Jan, [facility] [address] [place] [address] Dec, Other chronic pain G89.29 [facility] [address] [place] [address] Dec, Other chronic pain G89.29 [facility] [address] [place] [id number] Nov, Asymptomatic human immunodeficiency viru s (HIV) infection status Z21 ; Influenza vaccine needed Z23 and Other chronic pain G89.29 [facility] [address] [place] [address] Nov, Other chronic pain G89.29 [facility] [address] [place] [address] Oct, [facility] [address] [place] [address] Oct, Other chronic pain G89.29 [facility] [address] [place] [address] Oct, [facility] [address] [place] [id number] Sep, Asymptomatic human immunodeficiency viru s (HIV) infection status Z21 ; Other chronic pain G89.29 and Generalized anxiety disorder F41.1 [facility] [address] [place] [address] Jun, [facility] [address] [place] [address] Jun, [facility] [address] [place] [address] Jun, [facility] [address] [place] [id number] Jun, Asymptomatic human immunodeficiency viru s (HIV) infection status Z21 ; Need for pneumococcal vaccine Z23 ; Major depressive disorder, recurrent, moderate F33.1 ; Loss of appetite R63.0 ; Other chronic pain G89.29 ; Other and unspecified noninfectious gastroenteritis and colitis K52.9 and Nausea R11.0 [facility] [address] [place] [address] Jun, [facility] [address] [place] [address] Jun, Acute right ankle pain M25.571 [facility] [address] [address] May, [facility] [address] [place] [address] May, Acute right ankle pain M25.571 [facility] [address] [place] [address] Apr, [facility] [address] [place] [address] Apr, [facility] [address] [place] [address] Mar, Acute right ankle pain M25.571 [facility] [address] [place] [address] Mar, [facility] [address] [place] [address] Mar, [facility] [address] [place] [address], [place] [address] Mar, [facility] [address] [place] [address] Mar, [facility] [address] [place] [address] Mar, [facility] [address] [place] [address] Mar, Nausea and vomiting, intractability of v omiting not specified, unspecified vomiting type R11.2 [facility] [address] [place] [address] Mar, [facility] [address] [place] [address] Mar, Loss of appetite R63.0 [facility] [address] [place] [address] Mar, [facility] [address] [place] [address] Mar, [facility] [address] [place] [address] Mar, [facility] [address] [place] [address] Feb, Abscess L02.[address] [address] Feb, Acute right ankle pain M25.[address] [address] Feb, [facility] [address] [place] [address] Feb, [address] [address] Feb, [facility] [address] [place] [address] Feb, Acute right ankle pain M25.[address] [address] Feb, Abscess L02.91 [facility] [address] [place] [id number] Jan, Asymptomatic human immunodeficiency viru s (HIV) infection status Z21 ; Influenza vaccine needed Z23 and Acute right ankle pain M25.[address] [address] Jan, Abscess L02.[address] [address] 28 Nov, 2016 [facility] [address] [facility] [place] [address] Nov, Abscess L02.91 [facility] [address] [facility] [place] [address] Nov, Anxiety F41.9 [facility] [address] [facility] [place] [address] 25 Nov, 2016 Acute right ankle pain M25.571 [facility] [address] [facility] [place] [address] 15 Nov, 2016 [facility] [address] [facility] [place] [address] 14 Nov, 2016 [facility] [address] [facility] [place] [address] 14 Nov, 2016 Hiccups R06.6 [facility] [address] [facility] [place] [address] 13 Nov, 2016 [facility] [address] [facility] [place] [address] 08 Nov, 2016 [facility] [address] [facility] [place] [address] 08 Nov, 2016 [facility] [address] [facility] [place] [address] Nov, [facility] [address] [facility] [place] [address] Nov, [facility] [address] [facility] [place] [address] Nov, [facility] [address] [facility] [place] [address] Oct, [facility] [address] [facility] [place] [address] Oct, [facility] [address] [facility] [place] [address] Oct, [facility] [address] [facility] [place] [address] Oct, Abscess L02.91 [facility] [address] [facility] [place] [address] Oct, [facility] [address] [facility] [place] [address] Oct, [facility] [address] [facility] [place] [address] Oct, [facility] [address] [place] [address] Oct, Abscess L02.91 and Acute right ankle ta n M25.571 [facility] [address] [place] [address] Oct, [facility] [address] [facility] [place] [address] Oct, [facility] [address] [place] [address] Oct, Abscess L02.91 [facility] [address] [place] [address] Oct, [facility] [address] [place] [address] Oct, 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 ; Nicotine dependence, cigarettes, uncomplicated F17.210 ; Iron deficiency anemia due to chronic blood loss D50.0 ; GERD with esophagitis K21.0 ; Major depressive disorder, recurrent, moderate F33.1 and Generalized anxiety disorder F41.1 [facility] [address] [place] [address] Sep, Major depressive disorder, recurrent, mo derate F33.1 [facility] [address] [place] [address] Sep, [facility] [address] [place] [address] Sep, [facility] [address] [place] [address] Sep, [facility] [address] [place] [address] Sep, [facility] [address] [place] [address] Sep, [facility] [address] [place] [address] Aug, [facility] [address] [place] [address] Aug, [facility] [address] [place] [address] Aug, [address] [address] Aug, Loss of appetite R63.0 ; Major depressiv e disorder, recurrent, moderate F33.1 and Functional diarrhea K59.[address] [address] Aug, Acute hemorrhoid K64.9 and Other osteoar thritis involving multiple joints M15.[address] [address] Aug, Abscess L02.[address] [address] July, Chronic diarrhea K52.[address] [address] July, [facility] [address] [place] [id number] July, Asymptomatic human immunodeficiency viru s (HIV) infection status Z21 ; Nicotine dependence, cigarettes, uncomplicated F17.210 ; Chronic diarrhea K52.9 ; Abscess L02.91 ; GERD with esophagitis K21.0 ; Anxiety F41.9 and 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 [address] Jun, Pain in joint involving multiple sites M 25.[address] [address] Jun, [address] [address] Jun, Pain in joint involving multiple sites M 25.[address] [address] Jun, Pain in joint involving multiple sites M 25.50 ; GERD with esophagitis K21.0 and Intractable hiccups R06.[address] [address] May, Pain in joint involving multiple sites M 25.[address] [address] Apr, Pain in joint involving multiple sites M 25.50 and Anxiety F41.[address] [address] Apr, [address] [address] Apr, Chronic diarrhea K52.9 and Pain in joint involving multiple sites M25.[address] [id number] Apr, Asymptomatic human immunodeficiency viru s (HIV) infection status Z21 ; Mild intermittent asthma without complication J45.20 ; Iron deficiency anemia due to chronic blood loss D50.0 ; Screening, lipid Z13.220 ; Chronic diarrhea K52.9 ; Abscess L02.91 and Projectile vomiting with nausea R11.[address] [address] Feb, Acute hemorrhoid K64.[address] [address] Jan, [address] [address] Jan, Nausea and vomiting, intractability of v omiting not specified, unspecified vomiting type R11.2 and Acute right ankle pain M25.[address] [address] Jan, [address] [address] Jan, Asymptomatic human immunodeficiency viru s (HIV) infection status Z21 ; Iron deficiency anemia due to chronic blood loss D50.0 and Generalized abdominal pain R10.84 [address] [place] [id number] Dec, Asymptomatic human immunodeficiency viru s (HIV) infection status Z21 ; Mild intermittent asthma without complication J45.20 ; Influenza vaccine needed Z23 and Nicotine dependence, cigarettes, uncomplicated F17.[address] [facility] [address] [facility] [address] [place] [address] [id number] 2 9 Oct, [address] [facility] [address] [place] [address] [id number] 2 8 Oct, 2013 [facility] [address] [place] [address] 08 May, 2012 [facility] [address] [place] [address] Feb, [facility] [address] [place] [address] 14 Nov, 2011 [facility] [address] [place] [address] Aug, [facility] [address] [place] [address] Apr, [facility] [address] [place] [address] [id number] 1 8 Jan, 2011 IMMUNIZATIONS No Known Immunizations SOCIAL HISTORY Never Assessed REASON FOR VISIT thanks PLAN OF CARE VITAL SIGNS MEDICATIONS Unknown Medications RESULTS No Results PROCEDURES No Known procedures INSTRUCTIONS MEDICATIONS ADMINISTERED No Known Medications MEDICAL (GENERAL) HISTORY Type Description Date Medical History HIV Medical History Colitis Medical History chronic pain Medical History depression Surgical History No know Surgical history
--- OUTSIDE RECORDS SUMMARY | 2019-07-04 11:55 | XMS REPORT ---
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 20 Active 158676658 Problem Iron deficiency anemia due to chronic blood loss D 50.0 Active 34033641 Problem Other osteoarthritis involving multiple joints M15 .8 Active 811711334 Problem Asymptomatic human immunodeficiency virus (HIV) infect ion status Z21 Active 40617184 Problem Other and unspecified noninfectious gastroenteritis an d colitis K52.9 Active 43904795 Problem Nicotine dependence, cigarettes, uncomplicated F17 .210 Active 31884178 Problem Other chronic pain G89.29 Active 8 3531913 Problem Generalized anxiety disorder F41.1 A ctive 84821484 Problem GERD with esophagitis K21.0 Active 322724016 Problem Functional diarrhea K59.1 Active 03456732 Problem Major depressive disorder, recurrent, moderate F33 .1 Active 383345405 Problem Loss of appetite R63.0 Active 798 51053 ALLERGIES No Known Allergies ENCOUNTERS Encounter Location Date Diagnosis [facility] [address] [place], [place] [id number] Apr, Other chronic pain G89.29 and Asymptomat ic human immunodeficiency virus (HIV) infection status Z21 [facility] [address] [place] [address] Mar, [facility] [address] [place] [address] Mar, Other chronic pain G89.29 [facility] [address] [place] [address] Mar, [facility] [address] [place] [address] Mar, [facility] [address] [place] [address] Mar, Other chronic pain G89.29 [facility] [address] [place] [address] Mar, Other chronic pain G89.29 [facility] [address] [place] [address] Feb, Loss of appetite R63.0 [facility] [address] [place] [address] Feb, Other chronic pain G89.29 [facility] [address] [place] [address] Feb, Other chronic pain G89.29 [facility] [address] [place] [address] Feb, Other chronic pain G89.29 [facility] [address] [place] [address] Jan, Other chronic pain G89.29 [facility] [address] [place], [place] [id number] Jan, Asymptomatic human immunodeficiency viru s (HIV) infection status Z21 ; GERD with esophagitis K21.0 ; Influenza vaccine needed Z23 and Other chronic pain G89.29 [facility] [address] [place] [address] Dec, Other chronic pain G89.29 [facility] [address] [place] [address] Dec, Other chronic pain G89.29 [facility] [address] [place] [address] Dec, Other chronic pain G89.29 [facility] [address] [place] [address] Dec, Other chronic pain G89.29 [facility] [address] [place] [address] Nov, Other chronic pain G89.29 [facility] [address] [place] [address] Nov, Other chronic pain G89.29 [facility] [address] [place] [address] Oct, Other chronic pain G89.29 [facility] [address] [place] [address] Oct, Other chronic pain G89.29 [facility] [address] [place] [address] Oct, Other chronic pain G89.29 [facility] [address] [place] [address] Oct, Other chronic pain G89.29 [facility] [address] [place] [address] Sep, Other chronic pain G89.29 [facility] [address] [place] [address] Sep, Other chronic pain G89.29 [facility] [address] [place], [place] [id number] Sep, Asymptomatic human immunodeficiency viru s (HIV) infection status Z21 and GERD with esophagitis K21.0 [facility] [address] [place] [address] Sep, [facility] [address] [place] [address] Sep, Loss of appetite R63.0 and Other chronic pain G89.29 [facility] [address] [place] [address] Sep, Other chronic pain G89.29 [facility] [address] [place] [address] Aug, Other chronic pain G89.29 [facility] [address] [place] [address] Aug, Other chronic pain G89.29 [facility] [address] [place] [address] July, Other chronic pain G89.29 [facility] [address] [place] [address] July, [facility] [address] [place] [address] July, [facility] [address] [facility] [place] [address] July, Other chronic pain G89.29 [facility] [address] [facility] [place] [address] July, [facility] [address] [facility] [place] [address] July, Other chronic pain G89.29 [facility] [address] [facility] [place] [address] Jun, [facility] [address] [facility] [place] [address] Jun, Other chronic pain G89.29 [facility] [address] [facility] [place] [address] Jun, [facility] [address] [facility] [place] [address] Jun, Other chronic pain G89.29 [facility] [address] [facility] [place] [address] May, Other chronic pain G89.29 [facility] [address] [facility] [place] [address] May, [facility] [address] [facility] [place] [address] May, [facility] [address] [facility] [place] [address] May, [facility] [address] [facility] [place] [address] May, [facility] [address] [facility] [place] [address] May, [facility] [address] [facility] [place] [address] Apr, [facility] [address] [facility] [place] [address] Apr, [facility] [address] [facility] [place] [address] Apr, [facility] [address] [facility] [place] [address] Apr, [facility] [address] [facility] [place] [address] Apr, [facility] [address] [facility] [place] [address] Apr, [facility] [address] [facility] [place] [address] Apr, [facility] [address] [facility] [place] [address] Apr, [facility] [address] [facility] [place] [address] Apr, [facility] [address] [facility] [place] [address] Apr, Other chronic pain G89.29 [facility] [address] [facility] [place] [address] Apr, [facility] [address] [place], [place] [id number] Apr, Asymptomatic human immunodeficiency viru s (HIV) infection status Z21 ; Other chronic pain G89.29 and Screening for cardiovascular condition Z13.6 [facility] [address] [place] [address] Apr, [facility] [address] [place] [address] Apr, [facility] [address] [place] [address] Apr, [facility] [address] [place] [address] Apr, Other chronic pain G89.29 [facility] [address] [facility] [place] [address] Mar, Loss of appetite R63.0 [facility] [address] [facility] [place] [address] Mar, [facility] [address] [place] [address] Mar, [facility] [address] [place] [address] Mar, [facility] [address] [facility] [place] [address] Mar, [facility] [address] [facility] [place] [address] Mar, Other chronic pain G89.29 [facility] [address] [facility] [place] [address] Mar, [facility] [address] [facility] [place] [address] Mar, [facility] [address] [facility] [place] [address] Mar, [facility] [address] [facility] [place] [address] Mar, Other chronic pain G89.29 [facility] [address] [facility] [place] [id number] Mar, Asymptomatic human immunodeficiency viru s (HIV) infection status Z21 [facility] [address] [facility] [place] [address] Mar, Other chronic pain G89.29 [facility] [address] [place] [facility] [place] [address] Mar, [facility] [address] [facility] [place] [address] Mar, [facility] [address] [facility] [place] [address] Feb, Other chronic pain G89.29 [facility] [address] [place] [address] Feb, Other chronic pain G89.29 [facility] [address] [facility] [place] [id number] Feb, Other chronic pain G89.29 [facility] [address] [place] [id number] Feb, Asymptomatic human immunodeficiency viru s (HIV) infection status Z21 and Other chronic pain G89.29 [facility] [address] [place] [address] Jan, Other chronic pain G89.29 [facility] [address] [facility] [place] [address] Jan, Other chronic pain G89.29 [facility] [address] [place] [address] Jan, Asymptomatic human immunodeficiency viru s (HIV) infection status Z21 [facility] [address] [place] [address] Jan, Other chronic pain G89.29 [facility] [address] [place] [address] Jan, [facility] [address] [place] [address] Dec, Other chronic pain G89.29 [facility] [address] [place] [address] Dec, Other chronic pain G89.29 [facility] [address] [id number] Nov, Asymptomatic human immunodeficiency viru s (HIV) infection status Z21 ; Influenza vaccine needed Z23 and Other chronic pain G89.29 [facility] [address] [place] [address] Nov, Other chronic pain G89.29 [facility] [address] [place] [address] Oct, [facility] [address] [place] [address] Oct, Other chronic pain G89.29 [facility] [address] [place] [address] Oct, [facility] [address] [id number] Sep, Asymptomatic human immunodeficiency viru s (HIV) infection status Z21 ; Other chronic pain G89.29 and Generalized anxiety disorder F41.1 [facility] [address] [place] [address] Jun, [facility] [address] [place] [address] Jun, [facility] [address] [place] [address] Jun, [facility] [address] [id number] Jun, Asymptomatic human immunodeficiency viru s (HIV) infection status Z21 ; Need for pneumococcal vaccine Z23 ; Major depressive disorder, recurrent, moderate F33.1 ; Loss of appetite R63.0 ; Other chronic pain G89.29 ; Other and unspecified noninfectious gastroenteritis and colitis K52.9 and Nausea R11.[address] [address] Jun, [facility] [address] [address] Jun, Acute right ankle pain M25.[address] [address] May, [address] [address] May, Acute right ankle pain M25.[address] [address] Apr, [facility] [address] [address] Apr, [address] [address] Mar, Acute right ankle pain M25.[address] [address] Mar, [facility] [address] [address] Mar, [facility] [address] [address] Mar, [facility] [address] [address] Mar, [facility] [address] [address] Mar, [facility] [address] [address] Mar, Nausea and vomiting, intractability of v omiting not specified, unspecified vomiting type R11.[address] [address] Mar, [facility] [address] [facility] [place] [address] Mar, Loss of appetite R63.0 [facility] [address] [facility] [place] [address] Mar, [facility] [address] [facility] [place] [address] Mar, [facility] [address] [facility] [place] [address] Mar, [facility] [address] [facility] [place] [address] Feb, Abscess L02.91 [facility] [address] [facility] [place] [address] Feb, Acute right ankle pain M25.571 [facility] [address] [place] [address], [place] [address] Feb, [facility] [address] [facility] [place] [address] Feb, [facility] [address] [facility] [place] [address] Feb, [facility] [address] [place] [address] Feb, Acute right ankle pain M25.571 [facility] [address] [place] [address] Feb, Abscess L02.91 [facility] [address] [place] [id number] Jan, Asymptomatic human immunodeficiency viru s (HIV) infection status Z21 ; Influenza vaccine needed Z23 and Acute right ankle pain M25.571 [facility] [address] [place] [address] Jan, Abscess L02.91 [facility] [address] [place] [address], [place] [address] Nov, [facility] [address] [place] [address] Nov, [address]cess L02.[address] [facility] [address] [place] [address] 26 Nov, 2016 Anxiety F41.9 [facility] [address] [facility] [place] [address] 25 Nov, 2016 Acute right ankle pain M25.571 [facility] [address] [facility] [place] [address] 15 Nov, 2016 [facility] [address] [facility] [place] [address] 14 Nov, 2016 [facility] [address] [facility] [place] [address] 14 Nov, 2016 Hiccups R06.6 [facility] [address] [facility] [place] [address] 13 Nov, 2016 [facility] [address] [facility] [place] [address] 08 Nov, 2016 [facility] [address] [facility] [place] [address] 08 Nov, 2016 [facility] [address] [facility] [place] [address] 06 Nov, 2016 [facility] [address] [facility] [place] [address] 06 Nov, 2016 [facility] [address] [facility] [place] [address] 05 Nov, 2016 [facility] [address] [facility] [place] [address] Oct, [facility] [address] [facility] [place] [address] Oct, [facility] [address] [facility] [place] [address] Oct, [facility] [address] [facility] [place] [address] Oct, Abscess L02.91 [facility] [address] [facility] [place] [address] Oct, [facility] [address] [facility] [place] [address] Oct, [facility] [address] [facility] [place] [address] Oct, [facility] [address] [place] [address] Oct, Abscess L02.91 and Acute right ankle ta n M25.571 [facility] [address] [place] [address] Oct, [facility] [address] [place] [address] Oct, [facility] [address] [place] [address] Oct, Abscess L02.91 [facility] [address] [place] [address] Oct, [facility] [address] [place] [address] Oct, [facility] [address] [place] [id number] Oct, Asymptomatic human immunodeficiency viru s (HIV) infection status Z21 ; [facility] current use of opiate analgesic Z79.891 ; Nicotine dependence, cigarettes, uncomplicated F17.210 ; Iron deficiency anemia due to chronic blood loss D50.0 ; GERD with esophagitis K21.0 ; Major depressive disorder, recurrent, moderate F33.1 and Generalized anxiety disorder F41.1 [facility] [address] [place] [address] Sep, Major depressive disorder, recurrent, mo derate F33.1 [facility] [address] [place] [address] Sep, [facility] [address] [place] [address] Sep, [facility] [address] [place] [address] Sep, [facility] [address] [place] [address] Sep, [facility] [address] [place] [address] Sep, [facility] [address] [place] [address] Aug, [facility] [address] [place] [address] Aug, [address] [address] Aug, [address] [address] Aug, Loss of appetite R63.0 ; Major depressiv e disorder, recurrent, moderate F33.1 and Functional diarrhea K59.[address] [address] Aug, Acute hemorrhoid K64.9 and Other osteoar thritis involving multiple joints M15.[address] [address] Aug, Abscess L02.[address] [address] July, Chronic diarrhea K52.[address] [address] July, [facility] [address] [place] [id number] July, Asymptomatic human immunodeficiency viru s (HIV) infection status Z21 ; Nicotine dependence, cigarettes, uncomplicated F17.210 ; Chronic diarrhea K52.9 ; Abscess L02.91 ; GERD with esophagitis K21.0 ; Anxiety F41.9 and 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 [address] Jun, Pain in joint involving multiple sites M 25.[address] [address] Jun, [address] [address] Jun, Pain in joint involving multiple sites M 25.[address] [address] Jun, Pain in joint involving multiple sites M 25.50 ; GERD with esophagitis K21.0 and Intractable hiccups R06.[address] [address] May, Pain in joint involving multiple sites M 25.50 [facility] [address] [place] [address] 28 Apr, 2016 Pain in joint involving multiple sites M 25.50 and Anxiety F41.[address] [address] 17 Apr, [address] [address] Apr, Chronic diarrhea K52.9 and Pain in joint involving multiple sites M25.[address] [id number] 10 Apr, 2016 Asymptomatic human immunodeficiency viru s (HIV) infection status Z21 ; Mild intermittent asthma without complication J45.20 ; Iron deficiency anemia due to chronic blood loss D50.0 ; Screening, lipid Z13.220 ; Chronic diarrhea K52.9 ; Abscess L02.91 and Projectile vomiting with nausea R11.[address] [address] Feb, Acute hemorrhoid K64.[address] [address] Jan, [address] [address] Jan, Nausea and vomiting, intractability of v omiting not specified, unspecified vomiting type R11.2 and Acute right ankle pain M25.[address] [address] Jan, [address] [address] Jan, Asymptomatic human immunodeficiency viru s (HIV) infection status Z21 ; Iron deficiency anemia due to chronic blood loss D50.0 and Generalized abdominal pain R10.[address] [id number] Dec, Asymptomatic human immunodeficiency viru s (HIV) infection status Z21 ; Mild intermittent asthma without complication J45.20 ; Influenza vaccine needed Z23 and Nicotine dependence, cigarettes, uncomplicated F17.210 [facility] [address] [facility] [address] [place] [id number] 2 9 Oct, 2013 [facility] [address] [facility] [address] [place], [place] [id number] 2 8 Oct, 2013 [facility] [address] [place] [address] 08 May, 2012 [facility] [address] [place] [address] Feb, [facility] [address] [place] [address] 14 Nov, 2011 [facility] [address] [place] [address] Aug, [facility] [address] [place] [address] Apr, [facility] [address] [place] [id number] 1 8 Jan, 2011 IMMUNIZATIONS No Known Immunizations SOCIAL HISTORY Never Assessed REASON FOR VISIT PLAN OF CARE Activity Details Follow Up 4 Months Reason: Pending Test HIV-1, Quant, PCR w Reflex H IV-1 GenoSure Prime 89697 Pending Test Rapid Plasma Reagin (RPR), T est w/ Reflex to Quant RPR/Confirm Treponema pallidum Antibodies 53299 Pending Test Metabolic Panel (14), Compre hensive (CMP) 99700 Pending Test CD4/CD8 Ratio Profile 06441 Pending Test Urine VITAL SIGNS Height 65.5 in 2019-04-11 Weight 160 lbs 2019-04-11 Temperature 98.5 degrees Fahrenheit 2019-04-11 Heart Rate 81 /min 2019-04-11 Respiratory Rate 18 /min 2019-04-11 Oximetry 96 % 2019-04-11 BMI 26.22 kg/m2 2019-04-11 Blood pressure systolic 124 mm Hg 2019-04-11 Blood pressure diastolic 82 mm Hg 2019-04-11 MEDICATIONS Medication Instructions Dosage Frequency Start Date End Date Duration S tatus Biktarvy 50 MG/200 MG/25 MG Orally Once daily 1 tablet 24h 15 F 2018 30 days Active Percocet 7.5-325 mg Orally every 6 hrs 1 tablet as needed 6h 07 Apr, 2019 7 days Active Marinol 10 MG Orally twice a day 1 capsule 12h 24 Aug, 2016 30 days Active RESULTS Name Result Date Reference Range Opioid/Opiate Agreement (Annual) 2019-04-11 PROCEDURES Procedure Date Ordered Result Body Site Billed by outside source Apr 11, 2019 BLOOD SEROLOGY, QUALITATIVE Apr 11, 2019 HIV-1, DNA, QUANT Apr 11, 2019 T CELL, ABSOLUTE COUNT/RATIO Apr 11, 2019 COMPREHEN METABOLIC PANEL Apr 11, 2019 INSTRUCTIONS MEDICATIONS ADMINISTERED No Known Medications MEDICAL (GENERAL) HISTORY Type Description Date Medical History HIV Medical History Colitis Medical History chronic pain Medical History depression Surgical History No know Surgical history
--- OUTSIDE RECORDS SUMMARY | 2019-07-04 11:56 | XMS REPORT ---
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 20 Active 005211846 Problem Iron deficiency anemia due to chronic blood loss D 50.0 Active 37145641 Problem Other osteoarthritis involving multiple joints M15 .8 Active 214102413 Problem Asymptomatic human immunodeficiency virus (HIV) infect ion status Z21 Active 27250813 Problem Other and unspecified noninfectious gastroenteritis an d colitis K52.9 Active 32979281 Problem Nicotine dependence, cigarettes, uncomplicated F17 .210 Active 11588140 Problem Other chronic pain G89.29 Active 8 4193031 Problem Generalized anxiety disorder F41.1 A ctive 16430641 Problem GERD with esophagitis K21.0 Active 524668973 Problem Functional diarrhea K59.1 Active 32240439 Problem Major depressive disorder, recurrent, moderate F33 .1 Active 678209097 Problem Loss of appetite R63.0 Active [id number] ALLERGIES No Information ENCOUNTERS Encounter Location Date Diagnosis [address] [address] Mar, [address] [address] Mar, Other chronic pain G89.[address] [address] Mar, [address] [address] Mar, [address] [address] Mar, Other chronic pain G89.[address] [place] [address] Mar, Other chronic pain G89.29 [facility] [address] [place] [address] Feb, Loss of appetite R63.0 [facility] [address] [place] [address] Feb, Other chronic pain G89.29 [facility] [address] [place] [address] Feb, Other chronic pain G89.29 [facility] [address] [place] [address] Feb, Other chronic pain G89.29 [facility] [address] [place] [address] Jan, Other chronic pain G89.29 [facility] [address] [place] [id number] Jan, Asymptomatic human immunodeficiency viru s (HIV) infection status Z21 ; GERD with esophagitis K21.0 ; Influenza vaccine needed Z23 and Other chronic pain G89.29 [facility] [address] [place] [address] Dec, Other chronic pain G89.29 [facility] [address] [place] [address] Dec, Other chronic pain G89.29 [facility] [address] [place] [address] Dec, Other chronic pain G89.29 [facility] [address] [place] [address] Dec, Other chronic pain G89.29 [facility] [address] [place] [address] Nov, Other chronic pain G89.29 [facility] [address] [place] [address] Nov, Other chronic pain G89.29 [facility] [address] [place] [address] Oct, Other chronic pain G89.29 [facility] [address] [place] [address] Oct, Other chronic pain G89.29 [facility] [address] [place] [address] Oct, Other chronic pain G89.29 [facility] [address] [place] [address] Oct, Other chronic pain G89.29 [facility] [address] [place] [address] Sep, Other chronic pain G89.29 [facility] [address] [place] [address] Sep, Other chronic pain G89.29 [facility] [address] [place] [id number] Sep, Asymptomatic human immunodeficiency viru s (HIV) infection status Z21 and GERD with esophagitis K21.0 [facility] [address] [place] [address] Sep, [facility] [address] [place] [address] Sep, Loss of appetite R63.0 and Other chronic pain G89.29 [facility] [address] [place] [address] Sep, Other chronic pain G89.29 [facility] [address] [place] [address] Aug, Other chronic pain G89.29 [facility] [address] [place] [address] Aug, Other chronic pain G89.29 [facility] [address] [place] [address] July, Other chronic pain G89.29 [facility] [address] [place] [address] July, [facility] [address] [place] [address] July, [facility] [address] [place] [address] July, Other chronic pain G89.29 [facility] [address] [place] [facility] [place] [address] July, [facility] [address] [place] [facility] [place] [address] July, Other chronic pain G89.29 [facility] [address] [place] [facility] [address] Jun, [facility] [address] [place] [facility] [place] [address] Jun, Other chronic pain G89.29 [facility] [address] [place] [facility] [place] [address] Jun, [facility] [address] [place] [facility] [place] [address] Jun, Other chronic pain G89.29 [facility] [address] [place] [facility] [place] [address] May, Other chronic pain G89.29 [facility] [address] [place] [facility] [place] [address] May, [facility] [address] [place] [facility] [address] May, [facility] [address] [place] [facility] [address] May, [facility] [address] [place] [facility] [address] May, [facility] [address] [place] [facility] [address] May, [facility] [address] [place] [facility] [address] Apr, [facility] [address] [place] [facility] [place] [address] Apr, [facility] [address] [place] [facility] [address] Apr, [facility] [address] [place] [facility] [address] Apr, [facility] [address] [place] [facility] [place] [address] Apr, [facility] [address] [place] [address] Apr, [facility] [address] [place] [address] Apr, [facility] [address] [place] [address] Apr, [facility] [address] [place] [address] Apr, [facility] [address] [place] [address] Apr, Other chronic pain G89.29 [facility] [address] [place] [address] Apr, [facility] [address] [place] [id number] Apr, Asymptomatic human immunodeficiency viru s (HIV) infection status Z21 ; Other chronic pain G89.29 and Screening for cardiovascular condition Z13.6 [facility] [address] [place] [address] Apr, [facility] [address] [place] [address] Apr, [facility] [address] [place] [address] Apr, [facility] [address] [place] [address] Apr, Other chronic pain G89.29 [facility] [address] [place] [address] Mar, Loss of appetite R63.0 [facility] [address] [place] [address] Mar, [facility] [address] [place] [address] Mar, [facility] [address] [place] [address] Mar, [facility] [address] [place] [address] Mar, [facility] [address] [place] [address] Mar, Other chronic pain G89.29 [facility] [address] [place] [address] Mar, [facility] [address] [place] [facility] [address] Mar, [facility] [address] [place] [address] Mar, [facility] [address] [place] [address] Mar, Other chronic pain G89.29 [facility] [address] [facility] [place] [id number] Mar, Asymptomatic human immunodeficiency viru s (HIV) infection status Z21 [facility] [address] [place] [address] Mar, Other chronic pain G89.29 [facility] [address] [place] [address] Mar, [facility] [address] [place] [address] Mar, [facility] [address] [place] [address] Feb, Other chronic pain G89.29 [facility] [address] [place] [address] Feb, Other chronic pain G89.29 [facility] [address] [facility] [id number] Feb, Other chronic pain G89.29 [facility] [address] [place] [id number] Feb, Asymptomatic human immunodeficiency viru s (HIV) infection status Z21 and Other chronic pain G89.29 [facility] [address] [place] [address] Jan, Other chronic pain G89.29 [facility] [address] [place] [address] Jan, Other chronic pain G89.29 [facility] [address] [place] [address] Jan, Asymptomatic human immunodeficiency viru s (HIV) infection status Z21 [facility] [address] [place] [address] Jan, Other chronic pain G89.29 [facility] [address] [place] [address] Jan, [facility] [address] [place] [address] Dec, Other chronic pain G89.29 [facility] [address] [place] [address] Dec, Other chronic pain G89.29 [facility] [address] [place] [id number] Nov, Asymptomatic human immunodeficiency viru s (HIV) infection status Z21 ; Influenza vaccine needed Z23 and Other chronic pain G89.29 [facility] [address] [place] [address] Nov, Other chronic pain G89.29 [facility] [address] [place] [address] Oct, [facility] [address] [place] [address] Oct, Other chronic pain G89.29 [facility] [address] [place] [address] Oct, [facility] [address] [place] [id number] Sep, Asymptomatic human immunodeficiency viru s (HIV) infection status Z21 ; Other chronic pain G89.29 and Generalized anxiety disorder F41.1 [facility] [address] [place] [address] Jun, [facility] [address] [place] [address] Jun, [facility] [address] [place] [address] Jun, [facility] [address] [place] [id number] Jun, Asymptomatic human immunodeficiency viru s (HIV) infection status Z21 ; Need for pneumococcal vaccine Z23 ; Major depressive disorder, recurrent, moderate F33.1 ; Loss of appetite R63.0 ; Other chronic pain G89.29 ; Other and unspecified noninfectious gastroenteritis and colitis K52.9 and Nausea R11.0 [facility] [address] [place] [address] Jun, [facility] [address] [place] [address] Jun, Acute right ankle pain M25.571 [facility] [address] [place] [address] May, [facility] [address] [place] [address] May, Acute right ankle pain M25.571 [facility] [address] [place] [address] Apr, [facility] [address] [place] [address] Apr, [facility] [address] [place] [address] Mar, Acute right ankle pain M25.571 [facility] [address] [place] [address] Mar, [facility] [address] [place] [address] Mar, [facility] [address] [place] [address] Mar, [facility] [address] [place] [address] Mar, [facility] [address] [place] [address] Mar, [facility] [address] [place] [address] Mar, Nausea and vomiting, intractability of v omiting not specified, unspecified vomiting type R11.2 [facility] [address] [place] [address] Mar, [facility] [address] [place] [address] Mar, Loss of appetite R63.0 [facility] [address] [place] [address] Mar, [facility] [address] [place] [address] Mar, [facility] [address] [place] [address] Mar, [facility] [address] [place] [address] Feb, Abscess L02.91 [facility] [address] [place] [address] Feb, Acute right ankle pain M25.571 [facility] [address] [place] [address] Feb, [facility] [address] [place] [address] Feb, [facility] [address] [place] [address] Feb, [facility] [address] [place] [address] Feb, Acute right ankle pain M25.571 [facility] [address] [place] [address], [place] [address] Feb, Abscess L02.91 [facility] [address] [place] [phone] Jan, Asymptomatic human immunodeficiency viru s (HIV) infection status Z21 ; Influenza vaccine needed Z23 and Acute right ankle pain M25.571 [facility] [address] [place] [address] Jan, Abscess L02.91 [facility] [address] [place] [address] Nov, [facility] [address] [place] [address] Nov, Abscess L02.91 [facility] [address] [place] [address] Nov, Anxiety F41.9 [facility] [address] [place] [address] Nov, Acute right ankle pain M25.571 [facility] [address] [place] [facility] [place] [address] 15 Nov, 2016 [facility] [address] [place] [facility] [address] 14 Nov, 2016 [facility] [address] [place] [facility] [address] 14 Nov, 2016 Hiccups R06.6 [facility] [address] [place] [facility] [place] [address] 13 Nov, 2016 [facility] [address] [place] [facility] [place] [address] 08 Nov, 2016 [facility] [address] [place] [facility] [place] [address] 08 Nov, 2016 [facility] [address] [place] [facility] [place] [address] Nov, [facility] [address] [place] [facility] [address] Nov, [facility] [address] [place] [facility] [address] Nov, [facility] [address] [place] [facility] [address] Oct, [facility] [address] [place] [facility] [address] Oct, [facility] [address] [place] [facility] [address] Oct, [facility] [address] [place] [facility] [address] Oct, Abscess L02.91 [facility] [address] [place] [facility] [place] [address] Oct, [facility] [address] [place] [facility] [address] Oct, [facility] [address] [place] [facility] [place] [address] Oct, [facility] [address] [place] [facility] [place] [address] Oct, Abscess L02.91 and Acute right ankle ta n M25.571 [facility] [address] [place] [facility] [place] [address] Oct, [facility] [address] [place] [address] Oct, [facility] [address] [place] [address] Oct, Abscess L02.91 [facility] [address] [place] [address] Oct, [facility] [address] [place] [address] Oct, [facility] [address] [place] [id number] Oct, Asymptomatic human immunodeficiency viru s (HIV) infection status Z21 ; 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 ; Nicotine dependence, cigarettes, uncomplicated F17.210 ; Iron deficiency anemia due to chronic blood loss D50.0 ; GERD with esophagitis K21.0 ; Major depressive disorder, recurrent, moderate F33.1 and Generalized anxiety disorder F41.1 [facility] [address] [place] [address] Sep, Major depressive disorder, recurrent, mo derate F33.1 [facility] [address] [place] [address] Sep, [facility] [address] [place] [address] Sep, [facility] [address] [place] [address] Sep, [facility] [address] [place] [address] Sep, [facility] [address] [place] [address] Sep, [facility] [address] [place] [address] Aug, [facility] [address] [place] [address] Aug, [facility] [address] [place] [address] Aug, [facility] [address] [place] [address] Aug, Loss of appetite R63.0 ; Major depressiv e disorder, recurrent, moderate F33.1 and Functional diarrhea K59.[address] [address] Aug, Acute hemorrhoid K64.9 and Other osteoar thritis involving multiple joints M15.[address] [address] Aug, Abscess L02.[address] [address] July, Chronic diarrhea K52.[address] [address] July, [facility] [address] [place] [id number] July, Asymptomatic human immunodeficiency viru s (HIV) infection status Z21 ; Nicotine dependence, cigarettes, uncomplicated F17.210 ; Chronic diarrhea K52.9 ; Abscess L02.91 ; GERD with esophagitis K21.0 ; Anxiety F41.9 and 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 [address] Jun, Pain in joint involving multiple sites M 25.[address] [address] Jun, [address] [address] Jun, Pain in joint involving multiple sites M 25.[address] [address] Jun, Pain in joint involving multiple sites M 25.50 ; GERD with esophagitis K21.0 and Intractable hiccups R06.[address] [address] May, Pain in joint involving multiple sites M 25.[address] [address] Apr, Pain in joint involving multiple sites M 25.50 and Anxiety F41.[address] [address] 17 Apr, [address] [address] Apr, Chronic diarrhea K52.9 and Pain in joint involving multiple sites M25.50 [facility] [address] [id number] 10 Apr, 2016 Asymptomatic human immunodeficiency viru s (HIV) infection status Z21 ; Mild intermittent asthma without complication J45.20 ; Iron deficiency anemia due to chronic blood loss D50.0 ; Screening, lipid Z13.220 ; Chronic diarrhea K52.9 ; Abscess L02.91 and Projectile vomiting with nausea R11.[address] [address] Feb, Acute hemorrhoid K64.[address] [address] Jan, [address] [address] 26 Jan, 2016 Nausea and vomiting, intractability of v omiting not specified, unspecified vomiting type R11.2 and Acute right ankle pain M25.[address] [address] Jan, [address] [address] 09 Jan, 2016 Asymptomatic human immunodeficiency viru s (HIV) infection status Z21 ; Iron deficiency anemia due to chronic blood loss D50.0 and Generalized abdominal pain R10.84 [place] [address] [place] [id number] Dec, Asymptomatic human immunodeficiency viru s (HIV) infection status Z21 ; Mild intermittent asthma without complication J45.20 ; Influenza vaccine needed Z23 and Nicotine dependence, cigarettes, uncomplicated F17.210 [facility] [place] [facility] [address] [facility] [address] [place] [id number] 2 Oct, [facility] [address] [facility] [address] [place] [id number] 2 Oct, [address] [place] [address] 08 May, 2012 [facility] [address] [place] [address] Feb, [facility] [address] [place] [address] Nov, [facility] [address] [place] [address] Aug, [facility] [address] [place] [address] Apr, [facility] [address] [facility] [address] [place], [place] [id number] 1 8 Jan, 2011 IMMUNIZATIONS No Known Immunizations SOCIAL HISTORY Never Assessed REASON FOR VISIT call pharmacy PLAN OF CARE VITAL SIGNS MEDICATIONS Unknown Medications RESULTS No Results PROCEDURES No Known procedures INSTRUCTIONS MEDICATIONS ADMINISTERED No Known Medications MEDICAL (GENERAL) HISTORY Type Description Date Medical History HIV Medical History Colitis Medical History chronic pain Medical History depression Surgical History No know Surgical history
--- OUTSIDE RECORDS SUMMARY | 2019-07-04 11:56 | XMS REPORT ---
Author Author ARTEMIO Li Organization [facility] Address [address] [place] [id number] Care Team Providers Care Emergency Medical Service Manager Name Role Phone Shana Li Unavailable PROBLEMS Type Condition ICD9-CM Code VKK76-[id number] Code Onset Dates Condition S tatus SNOMED Code Problem Mild intermittent asthma without complication J45. 20 Active 583348565 Problem Iron deficiency anemia due to chronic blood loss D 50.0 Active 44623557 Problem Other osteoarthritis involving multiple joints M15 .8 Active 887496080 Problem Asymptomatic human immunodeficiency virus (HIV) infect ion status Z21 Active 69179346 Problem Other and unspecified noninfectious gastroenteritis an d colitis K52.9 Active 20356596 Problem Nicotine dependence, cigarettes, uncomplicated F17 .210 Active 49491539 Problem Other chronic pain G89.29 Active 8 6862199 Problem Generalized anxiety disorder F41.1 A ctive 31710839 Problem GERD with esophagitis K21.0 Active 947520763 Problem Functional diarrhea K59.1 Active 25136204 Problem Major depressive disorder, recurrent, moderate F33 .1 Active 347563804 Problem Loss of appetite R63.0 Active 798 46604 ALLERGIES No Information ENCOUNTERS Encounter Location Date Diagnosis [address] [address] Mar, [address] [address] Mar, [address] [address] Mar, [address] [address] Mar, Other chronic pain G89.[address] [address] Mar, Other chronic pain G89.[address] [place] [address] Feb, Loss of appetite R63.0 [facility] [address] [place] [address] Feb, Other chronic pain G89.29 [facility] [address] [place] [address] Feb, Other chronic pain G89.29 [facility] [address] [place] [address] Feb, Other chronic pain G89.29 [facility] [address] [place] [address] Jan, Other chronic pain G89.29 [facility] [place] [address] [place] [id number] Jan, Asymptomatic human immunodeficiency viru s (HIV) infection status Z21 ; GERD with esophagitis K21.0 ; Influenza vaccine needed Z23 and Other chronic pain G89.29 [facility] [address] [place] [address] Dec, Other chronic pain G89.29 [facility] [address] [place] [address] Dec, Other chronic pain G89.29 [facility] [address] [place] [address] Dec, Other chronic pain G89.29 [facility] [address] [place] [address] Dec, Other chronic pain G89.29 [facility] [address] [place] [address] Nov, Other chronic pain G89.29 [facility] [address] [place] [address] Nov, Other chronic pain G89.29 [facility] [address] [place] [address] Oct, Other chronic pain G89.29 [facility] [address] [place] [address] Oct, Other chronic pain G89.29 [facility] [address] [place] [address] Oct, Other chronic pain G89.29 [facility] [address] [place] [address] Oct, Other chronic pain G89.29 [facility] [address] [place] [address] Sep, Other chronic pain G89.29 [facility] [address] [place] [address] Sep, Other chronic pain G89.29 [facility] [place] [address] [place], [place] [id number] Sep, Asymptomatic human immunodeficiency viru s (HIV) infection status Z21 and GERD with esophagitis K21.0 [facility] [address] [place] [address] Sep, [facility] [address] [place] [address] Sep, Loss of appetite R63.0 and Other chronic pain G89.29 [facility] [address] [place] [address] Sep, Other chronic pain G89.29 [facility] [address] [place] [address] Aug, Other chronic pain G89.29 [facility] [address] [place] [address] Aug, Other chronic pain G89.29 [facility] [address] [place] [address] July, Other chronic pain G89.29 [facility] [address] [place] [address] July, [facility] [address] [place] [address] July, [facility] [address] [place] [address] July, Other chronic pain G89.29 [facility] [address] [place] [address] July, [facility] [address] [place] [facility] [place] [address] July, Other chronic pain G89.29 [facility] [address] [place] [facility] [place] [address] Jun, [facility] [address] [place] [facility] [place] [address] Jun, Other chronic pain G89.29 [facility] [address] [place] [facility] [place] [address] Jun, [facility] [address] [place] [facility] [place] [address] Jun, Other chronic pain G89.29 [facility] [address] [place] [facility] [place] [address] May, Other chronic pain G89.29 [facility] [address] [place] [facility] [place] [address] May, [facility] [address] [place] [facility] [place] [address] May, [facility] [address] [place] [facility] [place] [address] May, [facility] [address] [place] [facility] [place] [address] May, [facility] [address] [place] [facility] [place] [address] May, [facility] [address] [place] [facility] [place] [address] Apr, [facility] [address] [place] [facility] [place] [address] Apr, [facility] [address] [place] [facility] [place] [address] Apr, [facility] [address] [place] [facility] [place] [address] Apr, [facility] [address] [place] [facility] [place] [address] Apr, [facility] [address] [place] [facility] [place] [address] Apr, [facility] [address] [place] [facility] [place] [address] Apr, [facility] [address] [place] [address] Apr, [facility] [address] [place] [address] Apr, [facility] [address] [place] [address] Apr, Other chronic pain G89.29 [facility] [address] [place] [address] Apr, [facility] [place] [address] [place] [id number] Apr, Asymptomatic human immunodeficiency viru s (HIV) infection status Z21 ; Other chronic pain G89.29 and Screening for cardiovascular condition Z13.6 [facility] [address] [place] [address] Apr, [facility] [address] [place] [address] Apr, [facility] [address] [place] [address] Apr, [facility] [address] [place] [address] Apr, Other chronic pain G89.29 [facility] [address] [place] [address] Mar, Loss of appetite R63.0 [facility] [address] [place] [address] Mar, [facility] [address] [place] [address] Mar, [facility] [address] [place] [address] Mar, [facility] [address] [place] [address] Mar, [facility] [address] [place] [address] Mar, Other chronic pain G89.29 [facility] [address] [place] [address] Mar, [facility] [address] [place] [address] Mar, [facility] [address] [place] [address] Mar, [facility] [address] [place] [address] Mar, Other chronic pain G89.29 [facility] [address] [place] [address], S [id number] Mar, Asymptomatic human immunodeficiency viru s (HIV) infection status Z21 [facility] [address] [place] [address] Mar, Other chronic pain G89.29 [facility] [address] [place] [address] Mar, [facility] [address] [place] [address] Mar, [facility] [address] [place] [address] Feb, Other chronic pain G89.29 [facility] [address] [place] [address] Feb, Other chronic pain G89.29 [facility] [address] [place] [address], S [id number] Feb, Other chronic pain G89.29 [facility] [place] [address] [place] [id number] Feb, Asymptomatic human immunodeficiency viru s (HIV) infection status Z21 and Other chronic pain G89.29 [facility] [address] [place] [address] Jan, Other chronic pain G89.29 [facility] [address] [place] [address] Jan, Other chronic pain G89.29 [facility] [address] [place] [address] Jan, Asymptomatic human immunodeficiency viru s (HIV) infection status Z21 [facility] [address] [place] [address] Jan, Other chronic pain G89.29 [facility] [address] [place] [address] Jan, [facility] [address] [place] [address] Dec, Other chronic pain G89.29 [facility] [address] [place] [address] Dec, Other chronic pain G89.29 [facility] [address] [place] [id number] Nov, Asymptomatic human immunodeficiency viru s (HIV) infection status Z21 ; Influenza vaccine needed Z23 and Other chronic pain G89.29 [facility] [address] [place] [address] 05 Nov, 2017 Other chronic pain G89.[address] [address] Oct, [address] [address] Oct, Other chronic pain G89.29 [facility] [address] [place] [address] Oct, [facility] [place] [address] [place] [id number] Sep, Asymptomatic human immunodeficiency viru s (HIV) infection status Z21 ; Other chronic pain G89.29 and Generalized anxiety disorder F41.[address] [address] Jun, [address] [address] Jun, [facility] [address] [place] [address] Jun, [facility] [place] [address] [place] [phone] Jun, Asymptomatic human immunodeficiency viru s (HIV) infection status Z21 ; Need for pneumococcal vaccine Z23 ; Major depressive disorder, recurrent, moderate F33.1 ; Loss of appetite R63.0 ; Other chronic pain G89.29 ; Other and unspecified noninfectious gastroenteritis and colitis K52.9 and Nausea R11.0 [facility] [address] [facility] [place] [address] Jun, [facility] [address] [place] [facility] [place] [address] Jun, Acute right ankle pain M25.571 [facility] [address] [place] [facility] [place] [address] May, [facility] [address] [place] [facility] [place] [address] May, Acute right ankle pain M25.571 [facility] [address] [place] [facility] [place] [address] Apr, [facility] [address] [place] [facility] [place] [address] Apr, [facility] [address] [place] [address] Mar, Acute right ankle pain M25.571 [facility] [address] [place] [address] Mar, [facility] [address] [place] [address] Mar, [facility] [address] [place] [address] Mar, [facility] [address] [place] [address] Mar, [facility] [address] [place] [address] Mar, [facility] [address] [place] [address] Mar, Nausea and vomiting, intractability of v omiting not specified, unspecified vomiting type R11.2 [facility] [address] [place] [address] Mar, [facility] [address] [place] [address] Mar, Loss of appetite R63.0 [facility] [address] [place] [address] Mar, [facility] [address] [place] [address] Mar, [facility] [address] [place] [address] Mar, [facility] [address] [place] [address] Feb, Abscess L02.91 [facility] [address] [place] [address] Feb, Acute right ankle pain M25.571 [facility] [address] [place] [address] Feb, [facility] [address] [place] [address] Feb, [facility] [address] [place] [address] Feb, [facility] [address] [place] [address] Feb, Acute right ankle pain M25.571 [facility] [address] [place] [address] Feb, Abscess L02.91 [facility] [place] [address] [place] [id number] Jan, Asymptomatic human immunodeficiency viru s (HIV) infection status Z21 ; Influenza vaccine needed Z23 and Acute right ankle pain M25.571 [facility] [address] [place] [address] Jan, Abscess L02.91 [facility] [address] [place] [address] Nov, [facility] [address] [place] [address] Nov, Abscess L02.91 [facility] [address] [place] [address] Nov, Anxiety F41.9 [facility] [address] [place] [address] Nov, Acute right ankle pain M25.571 [facility] [address] [place] [address] Nov, [facility] [address] [place] [facility] [place] [address] 14 Nov, 2016 [facility] [address] [place] [facility] [place] [address] 14 Nov, 2016 Hiccups R06.6 [facility] [address] [place] [facility] [place] [address] 13 Nov, 2016 [facility] [address] [place] [facility] [place] [address] Nov, [facility] [address] [place] [facility] [place] [address] Nov, [facility] [address] [place] [facility] [place] [address] Nov, [facility] [address] [place] [facility] [place] [address] Nov, [facility] [address] [place] [facility] [place] [address] Nov, [facility] [address] [place] [facility] [place] [address] Oct, [facility] [address] [place] [facility] [place] [address] Oct, [facility] [address] [place] [facility] [place] [address] Oct, [facility] [address] [place] [facility] [place] [address] Oct, Abscess L02.91 [facility] [address] [place] [facility] [place] [address] Oct, [facility] [address] [place] [facility] [place] [address] Oct, [facility] [address] [place] [facility] [place] [address] Oct, [facility] [address] [place] [facility] [place] [address] Oct, Abscess L02.91 and Acute right ankle ta n M25.571 [facility] [address] [place] [facility] [place] [address] Oct, [facility] [address] [place] [facility] [place] [address] Oct, [facility] [address] [place] [address] Oct, Abscess L02.91 [facility] [address] [place] [address] Oct, [facility] [address] [place] [address] Oct, [facility] [place] [address] [place] [id number] Oct, Asymptomatic human immunodeficiency viru s (HIV) infection status Z21 ; [facility] current use of opiate analgesic Z79.891 ; Nicotine dependence, cigarettes, uncomplicated F17.210 ; Iron deficiency anemia due to chronic blood loss D50.0 ; GERD with esophagitis K21.0 ; Major depressive disorder, recurrent, moderate F33.1 and Generalized anxiety disorder F41.1 [facility] [address] [place] [address] Sep, Major depressive disorder, recurrent, mo derate F33.1 [facility] [address] [place] [address] Sep, [facility] [address] [place] [address] Sep, [facility] [address] [place] [address] Sep, [facility] [address] [place] [address] Sep, [facility] [address] [place] [address] Sep, [facility] [address] [place] [address] Aug, [facility] [address] [place] [address] Aug, [facility] [address] [place] [address] Aug, [facility] [address] [place] [address] Aug, Loss of appetite R63.0 ; Major depressiv e disorder, recurrent, moderate F33.1 and Functional diarrhea K59.1 [facility] [address] [place] [address] Aug, Acute hemorrhoid K64.9 and Other osteoar thritis involving multiple joints M15.8 [facility] [address] [place] [address] Aug, Abscess L02.[address] [address] July, Chronic diarrhea K52.[address] [address] July, [facility] [place] [address] [place] [phone] July, Asymptomatic human immunodeficiency viru s (HIV) infection status Z21 ; Nicotine dependence, cigarettes, uncomplicated F17.210 ; Chronic diarrhea K52.9 ; Abscess L02.91 ; GERD with esophagitis K21.0 ; Anxiety F41.9 and 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 [facility] [address] [place] [address] Jun, Pain in joint involving multiple sites M 25.[address] [address] Jun, [address] [address] Jun, Pain in joint involving multiple sites M 25.[address] [address] Jun, Pain in joint involving multiple sites M 25.50 ; GERD with esophagitis K21.0 and Intractable hiccups R06.[address] [address] May, Pain in joint involving multiple sites M 25.[address] [address] Apr, Pain in joint involving multiple sites M 25.50 and Anxiety F41.[address] [address] Apr, [address] [address] 10 Apr, 2016 Chronic diarrhea K52.9 and Pain in joint involving multiple sites M25.50 [facility] [address] [id number] 10 Apr, 2016 Asymptomatic human immunodeficiency viru s (HIV) infection status Z21 ; Mild intermittent asthma without complication J45.20 ; Iron deficiency anemia due to chronic blood loss D50.0 ; Screening, lipid Z13.220 ; Chronic diarrhea K52.9 ; Abscess L02.91 and Projectile vomiting with nausea R11.[address] [address] Feb, Acute hemorrhoid K64.[address] [address] Jan, [address] [address] Jan, Nausea and vomiting, intractability of v omiting not specified, unspecified vomiting type R11.2 and Acute right ankle pain M25.[address] [address] Jan, [address] [address] Jan, Asymptomatic human immunodeficiency viru s (HIV) infection status Z21 ; Iron deficiency anemia due to chronic blood loss D50.0 and Generalized abdominal pain R10.[address] [id number] Dec, Asymptomatic human immunodeficiency viru s (HIV) infection status Z21 ; Mild intermittent asthma without complication J45.20 ; Influenza vaccine needed Z23 and Nicotine dependence, cigarettes, uncomplicated F17.210 [facility] [address] [facility] [address] [place] [id number] 2 Oct, [facility] [address] [facility] [address] [place] [id number] [address] Oct, [address] [address] 08 May, [address] [address] Feb, [facility] [address] [place] [address] 14 Nov, 2011 [facility] [address] [place] [address] Aug, [facility] [address] [place] [address] 17 Apr, 2011 [facility] [address] [facility] [address] [place] [id number] 1 8 Jan, 2011 IMMUNIZATIONS No Known Immunizations SOCIAL HISTORY Never Assessed REASON FOR VISIT PLAN OF CARE VITAL SIGNS MEDICATIONS Unknown Medications RESULTS No Results PROCEDURES No Known procedures INSTRUCTIONS MEDICATIONS ADMINISTERED No Known Medications MEDICAL (GENERAL) HISTORY Type Description Date Medical History HIV Medical History Colitis Medical History chronic pain Medical History depression Surgical History No know Surgical history
--- OUTSIDE RECORDS SUMMARY | 2019-07-04 11:56 | XMS REPORT ---
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 20 Active 913219908 Problem Iron deficiency anemia due to chronic blood loss D 50.0 Active 42469812 Problem Other osteoarthritis involving multiple joints M15 .8 Active 579918462 Problem Asymptomatic human immunodeficiency virus (HIV) infect ion status Z21 Active 64996742 Problem Other and unspecified noninfectious gastroenteritis an d colitis K52.9 Active 09435825 Problem Nicotine dependence, cigarettes, uncomplicated F17 .210 Active 03754972 Problem Other chronic pain G89.29 Active 8 9093912 Problem Generalized anxiety disorder F41.1 A ctive 84154321 Problem GERD with esophagitis K21.0 Active 789681357 Problem Functional diarrhea K59.1 Active 09682861 Problem Major depressive disorder, recurrent, moderate F33 .1 Active 397884390 Problem Loss of appetite R63.0 Active [id number] 74596 ALLERGIES No Information ENCOUNTERS Encounter Location Date Diagnosis [address] [address] Mar, Other chronic pain G89.[address] [address] Mar, [facility] [address] [place] [address] Mar, [address] [address] Mar, Other chronic pain G89.[address] [address] Mar, Other chronic pain G89.29 [facility] [address] [place] [address] Feb, Loss of appetite R63.0 [facility] [address] [place] [address] Feb, Other chronic pain G89.29 [facility] [address] [place] [address] Feb, Other chronic pain G89.29 [facility] [address] [place] [address] Feb, Other chronic pain G89.29 [facility] [address] [place] [address] Jan, Other chronic pain G89.29 [facility] [address] [place] [id number] Jan, Asymptomatic human immunodeficiency viru s (HIV) infection status Z21 ; GERD with esophagitis K21.0 ; Influenza vaccine needed Z23 and Other chronic pain G89.29 [facility] [address] [place] [address] Dec, Other chronic pain G89.29 [facility] [address] [place] [address] Dec, Other chronic pain G89.29 [facility] [address] [place] [address] Dec, Other chronic pain G89.29 [facility] [address] [place] [address] Dec, Other chronic pain G89.29 [facility] [address] [place] [address] Nov, Other chronic pain G89.29 [facility] [address] [place] [address] Nov, Other chronic pain G89.29 [facility] [address] [place] [address] Oct, Other chronic pain G89.29 [facility] [address] [place] [address] Oct, Other chronic pain G89.29 [facility] [address] [place] [address] Oct, Other chronic pain G89.29 [facility] [address] [place] [address] Oct, Other chronic pain G89.29 [facility] [address] [place] [address] Sep, Other chronic pain G89.29 [facility] [address] [place] [address] Sep, Other chronic pain G89.29 [facility] [address] [place], [place] [id number] Sep, Asymptomatic human immunodeficiency viru s (HIV) infection status Z21 and GERD with esophagitis K21.0 [facility] [address] [place] [address] Sep, [facility] [address] [place] [address] Sep, Loss of appetite R63.0 and Other chronic pain G89.29 [facility] [address] [place] [address] Sep, Other chronic pain G89.29 [facility] [address] [place] [address] Aug, Other chronic pain G89.29 [facility] [address] [place] [address] Aug, Other chronic pain G89.29 [facility] [address] [place] [address] July, Other chronic pain G89.29 [facility] [address] [place] [address] July, [facility] [address] [place] [address] July, [facility] [address] [place] [address] July, Other chronic pain G89.29 [facility] [address] [place] [address] July, [facility] [address] [facility] [place] [address] July, Other chronic pain G89.29 [facility] [address] [facility] [place] [address] Jun, [facility] [address] [facility] [place] [address] Jun, Other chronic pain G89.29 [facility] [address] [facility] [place] [address] Jun, [facility] [address] [facility] [place] [address] Jun, Other chronic pain G89.29 [facility] [address] [facility] [place] [address] May, Other chronic pain G89.29 [facility] [address] [facility] [place] [address] May, [facility] [address] [facility] [place] [address] May, [facility] [address] [facility] [place] [address] May, [facility] [address] [facility] [place] [address] May, [facility] [address] [facility] [place] [address] May, [facility] [address] [facility] [place] [address] Apr, [facility] [address] [facility] [place] [address] Apr, [facility] [address] [facility] [place] [address] Apr, [facility] [address] [facility] [place] [address] Apr, [facility] [address] [facility] [place] [address] Apr, [facility] [address] [facility] [place] [address] Apr, [facility] [address] [facility] [address] Apr, [facility] [address] [facility] [place] [address] Apr, [facility] [address] [facility] [address] Apr, [facility] [address] [facility] [address] Apr, Other chronic pain G89.29 [facility] [address] [facility] [address] Apr, [facility] [address] [place], [place] [id number] Apr, Asymptomatic human immunodeficiency viru s (HIV) infection status Z21 ; Other chronic pain G89.29 and Screening for cardiovascular condition Z13.6 [facility] [address] [facility] [address] Apr, [facility] [address] [facility] [address] Apr, [facility] [address] [facility] [address] Apr, [facility] [address] [facility] [address] Apr, Other chronic pain G89.29 [facility] [address] [facility] [address] Mar, Loss of appetite R63.0 [facility] [address] [facility] [address] Mar, [facility] [address] [facility] [address] Mar, [facility] [address] [facility] [address] Mar, [facility] [address] [facility] [address] Mar, [facility] [address] [facility] [address] Mar, Other chronic pain G89.29 [facility] [address] [facility] [place] [facility] [place] [address] Mar, [facility] [address] [facility] [place] [address] Mar, [facility] [address] [facility] [place] [address] Mar, [facility] [address] [facility] [place] [address] Mar, Other chronic pain G89.29 [facility] [address] [facility] [place] [id number] Mar, Asymptomatic human immunodeficiency viru s (HIV) infection status Z21 [facility] [address] [facility] [place] [address] Mar, Other chronic pain G89.29 [facility] [address] [place] [place] [address] Mar, [facility] [address] [place] [address] Mar, [facility] [address] [place] [address] Feb, Other chronic pain G89.29 [facility] [address] [place] [address] Feb, Other chronic pain G89.29 [facility] [address] [facility] [id number] Feb, Other chronic pain G89.29 [facility] [address] [place] [id number] Feb, Asymptomatic human immunodeficiency viru s (HIV) infection status Z21 and Other chronic pain G89.29 [facility] [address] [place] [address] Jan, Other chronic pain G89.29 [facility] [address] [place] [address] Jan, Other chronic pain G89.29 [facility] [address] [place] [address] Jan, Asymptomatic human immunodeficiency viru s (HIV) infection status Z21 [facility] [address] [place] [address] Jan, Other chronic pain G89.[address] [address] Jan, [address] [address] Dec, Other chronic pain G89.[address] [address] Dec, Other chronic pain G89.29 [facility] [address] [id number] Nov, Asymptomatic human immunodeficiency viru s (HIV) infection status Z21 ; Influenza vaccine needed Z23 and Other chronic pain G89.[address] [address] Nov, Other chronic pain G89.[address] [address] Oct, [address] [address] Oct, Other chronic pain G89.[address] [address] Oct, [address] [id number] Sep, Asymptomatic human immunodeficiency viru s (HIV) infection status Z21 ; Other chronic pain G89.29 and Generalized anxiety disorder F41.[address] [address] Jun, [address] [address] Jun, [address] [address] Jun, [address] [id number] Jun, Asymptomatic human immunodeficiency viru s (HIV) infection status Z21 ; Need for pneumococcal vaccine Z23 ; Major depressive disorder, recurrent, moderate F33.1 ; Loss of appetite R63.0 ; Other chronic pain G89.29 ; Other and unspecified noninfectious gastroenteritis and colitis K52.9 and Nausea R11.0 [facility] [address] [facility] [address] Jun, [facility] [address] [facility] [address] Jun, Acute right ankle pain M25.571 [facility] [address] [facility] [place] [facility] [place] [address] May, [facility] [address] [facility] [address] May, Acute right ankle pain M25.571 [facility] [address] [facility] [address] Apr, [facility] [address] [facility] [address] Apr, [facility] [address] [facility] [address] Mar, Acute right ankle pain M25.571 [facility] [address] [place] [address], [place] [address] Mar, [facility] [address] [place] [address] Mar, [facility] [address] [place] [address] Mar, [facility] [address] [place] [address] Mar, [facility] [address] [place] [address] Mar, [facility] [address] [place] [address] Mar, Nausea and vomiting, intractability of v omiting not specified, unspecified vomiting type R11.2 [facility] [address] [place] [address] Mar, [facility] [address] [place] [address] Mar, Loss of appetite R63.0 [facility] [address] [place] [address] Mar, [facility] [address] [facility] [address] Mar, [facility] [address] [facility] [address] Mar, [facility] [address] [facility] [address] Feb, Abscess L02.91 [facility] [address] [place] [address] Feb, Acute right ankle pain M25.571 [facility] [address] [facility] [address] Feb, [facility] [address] [facility] [address] Feb, [facility] [address] [facility] [address] Feb, [facility] [address] [place] [address] Feb, Acute right ankle pain M25.571 [facility] [address] [place] [address], [place] [address] Feb, Abscess L02.91 [facility] [address] [place] [id number] Jan, Asymptomatic human immunodeficiency viru s (HIV) infection status Z21 ; Influenza vaccine needed Z23 and Acute right ankle pain M25.571 [facility] [address] [place] [address] Jan, Abscess L02.91 [facility] [address] [place] [address] Nov, [facility] [address] [place] [address] Nov, Abscess L02.91 [facility] [address] [place] [address] Nov, Anxiety F41.9 [facility] [address] [place] [address] Nov, Acute right ankle pain M25.571 [facility] [address] [place] [address] 15 Nov, 2016 [facility] [address] [facility] [place] [address] 14 Nov, 2016 [facility] [address] [facility] [place] [address] 14 Nov, 2016 Hiccups R06.6 [facility] [address] [facility] [place] [address] 13 Nov, 2016 [facility] [address] [facility] [place] [address] 08 Nov, 2016 [facility] [address] [facility] [place] [address] 08 Nov, 2016 [facility] [address] [facility] [place] [address] Nov, [facility] [address] [facility] [place] [address] Nov, [facility] [address] [facility] [place] [address] Nov, [facility] [address] [facility] [place] [address] Oct, [facility] [address] [facility] [place] [address] Oct, [facility] [address] [facility] [place] [address] Oct, [facility] [address] [facility] [place] [address] Oct, Abscess L02.91 [facility] [address] [facility] [place] [address] Oct, [facility] [address] [facility] [place] [address] Oct, [facility] [address] [facility] [place] [address] Oct, [facility] [address] [facility] [place] [address] Oct, Abscess L02.91 and Acute right ankle ta n M25.571 [facility] [address] [facility] [place] [address] Oct, [facility] [address] [place] [address] Oct, [facility] [address] [place] [address] Oct, Abscess L02.91 [facility] [address] [place] [address] Oct, [facility] [address] [place] [address] Oct, [facility] [address] [place] [id number] Oct, Asymptomatic human immunodeficiency viru s (HIV) infection status Z21 ; 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 ; Nicotine dependence, cigarettes, uncomplicated F17.210 ; Iron deficiency anemia due to chronic blood loss D50.0 ; GERD with esophagitis K21.0 ; Major depressive disorder, recurrent, moderate F33.1 and Generalized anxiety disorder F41.1 [facility] [address] [place] [address] Sep, Major depressive disorder, recurrent, mo derate F33.1 [facility] [address] [place] [address] Sep, [facility] [address] [place] [address] Sep, [facility] [address] [place] [address] Sep, [facility] [address] [place] [address] Sep, [facility] [address] [place] [address] Sep, [facility] [address] [place] [address] Aug, [facility] [address] [facility] [address] Aug, [facility] [address] [place] [address] Aug, [facility] [address] [place] [address] Aug, Loss of appetite R63.0 ; Major depressiv e disorder, recurrent, moderate F33.1 and Functional diarrhea K59.[address] [address] Aug, Acute hemorrhoid K64.9 and Other osteoar thritis involving multiple joints M15.[address] [address] Aug, Abscess L02.[address] [address] July, Chronic diarrhea K52.[address] [address] July, [facility] [address] [place] [id number] July, Asymptomatic human immunodeficiency viru s (HIV) infection status Z21 ; Nicotine dependence, cigarettes, uncomplicated F17.210 ; Chronic diarrhea K52.9 ; Abscess L02.91 ; GERD with esophagitis K21.0 ; Anxiety F41.9 and 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 [address] Jun, Pain in joint involving multiple sites M 25.[address] [address] Jun, [address] [address] Jun, Pain in joint involving multiple sites M 25.[address] [address] Jun, Pain in joint involving multiple sites M 25.50 ; GERD with esophagitis K21.0 and Intractable hiccups R06.[address] [address] May, Pain in joint involving multiple sites M 25.[address] [address] Apr, Pain in joint involving multiple sites M 25.50 and Anxiety F41.[address] [address] 17 Apr, [address] [address] Apr, Chronic diarrhea K52.9 and Pain in joint involving multiple sites M25.[address] [id number] 10 Apr, 2016 Asymptomatic human immunodeficiency viru s (HIV) infection status Z21 ; Mild intermittent asthma without complication J45.20 ; Iron deficiency anemia due to chronic blood loss D50.0 ; Screening, lipid Z13.220 ; Chronic diarrhea K52.9 ; Abscess L02.91 and Projectile vomiting with nausea R11.[address] [address] Feb, Acute hemorrhoid K64.[address] [address] Jan, [address] [address] Jan, Nausea and vomiting, intractability of v omiting not specified, unspecified vomiting type R11.2 and Acute right ankle pain M25.[address] [address] Jan, [address] [address] 09 Jan, 2016 Asymptomatic human immunodeficiency viru s (HIV) infection status Z21 ; Iron deficiency anemia due to chronic blood loss D50.0 and Generalized abdominal pain R10.[address] [id number] Dec, Asymptomatic human immunodeficiency viru s (HIV) infection status Z21 ; Mild intermittent asthma without complication J45.20 ; Influenza vaccine needed Z23 and Nicotine dependence, cigarettes, uncomplicated F17.210 [facility] [address] [facility] [address] [place] [id number] 2 Oct, [facility] [address] [facility] [address] [place] [id number] [address], [address] [address] 08 May, 2012 [facility] [address] [place] [address] Feb, [facility] [address] [place] [address] Nov, [facility] [address] [place] [address] Aug, [facility] [address] [place] [address] Apr, [facility] [address] [facility] [address] [place], [place] [id number] 1 8 Jan, 2011 IMMUNIZATIONS No Known Immunizations SOCIAL HISTORY Never Assessed REASON FOR VISIT script requests PLAN OF CARE VITAL SIGNS MEDICATIONS Medication Instructions Dosage Frequency Start Date End Date Duration S tatus Percocet 7.5-325 MG Orally every 6 hrs 1 tablet as needed 6h Apr, 7 days Active RESULTS No Results PROCEDURES No Known procedures INSTRUCTIONS MEDICATIONS ADMINISTERED No Known Medications MEDICAL (GENERAL) HISTORY Type Description Date Medical History HIV Medical History Colitis Medical History chronic pain Medical History depression Surgical History No know Surgical history
--- OUTSIDE RECORDS SUMMARY | 2019-07-04 11:56 | XMS REPORT ---
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 20 Active 961878263 Problem Iron deficiency anemia due to chronic blood loss D 50.0 Active 72041828 Problem Other osteoarthritis involving multiple joints M15 .8 Active 036875209 Problem Asymptomatic human immunodeficiency virus (HIV) infect ion status Z21 Active 86242267 Problem Other and unspecified noninfectious gastroenteritis an d colitis K52.9 Active 80129631 Problem Nicotine dependence, cigarettes, uncomplicated F17 .210 Active 59347413 Problem Other chronic pain G89.29 Active 8 1262331 Problem Generalized anxiety disorder F41.1 A ctive 77399485 Problem GERD with esophagitis K21.0 Active 028560129 Problem Functional diarrhea K59.1 Active 68810611 Problem Major depressive disorder, recurrent, moderate F33 .1 Active 173711323 Problem Loss of appetite R63.0 Active [id number] 40799 ALLERGIES No Information ENCOUNTERS Encounter Location Date Diagnosis [facility] [address] [place] [address] Mar, [facility] [address] [place] [address] Mar, Other chronic pain G89.[address] [address] Mar, Other chronic pain G89.[address] [address] Feb, Loss of appetite R63.[address] [address] Feb, Other chronic pain G89.29 [facility] [address] [place] [address] Feb, Other chronic pain G89.29 [facility] [address] [place] [address] Feb, Other chronic pain G89.29 [facility] [address] [place] [address] Jan, Other chronic pain G89.29 [facility] [address] [place], [place] [id number] Jan, Asymptomatic human immunodeficiency viru s (HIV) infection status Z21 ; GERD with esophagitis K21.0 ; Influenza vaccine needed Z23 and Other chronic pain G89.29 [facility] [address] [place] [address] Dec, Other chronic pain G89.29 [facility] [address] [place] [address] Dec, Other chronic pain G89.29 [facility] [address] [place] [address] Dec, Other chronic pain G89.29 [facility] [address] [place] [address] Dec, Other chronic pain G89.29 [facility] [address] [place] [address] Nov, Other chronic pain G89.29 [facility] [address] [place] [address] Nov, Other chronic pain G89.29 [facility] [address] [place] [address] Oct, Other chronic pain G89.29 [facility] [address] [place] [address] Oct, Other chronic pain G89.29 [facility] [address] [place] [address] Oct, Other chronic pain G89.29 [facility] [address] [place] [address] Oct, Other chronic pain G89.29 [facility] [address] [facility] [place] [address] Sep, Other chronic pain G89.29 [facility] [address] [facility] [place] [address] Sep, Other chronic pain G89.29 [facility] [address] [place], [place] [id number] Sep, Asymptomatic human immunodeficiency viru s (HIV) infection status Z21 and GERD with esophagitis K21.0 [facility] [address] [facility] [place] [address] Sep, [facility] [address] [facility] [place] [address] Sep, Loss of appetite R63.0 and Other chronic pain G89.29 [facility] [address] [facility] [place] [address] Sep, Other chronic pain G89.29 [facility] [address] [facility] [place] [address] Aug, Other chronic pain G89.29 [facility] [address] [facility] [place] [address] Aug, Other chronic pain G89.29 [facility] [address] [facility] [place] [address] July, Other chronic pain G89.29 [facility] [address] [place] [address] July, [facility] [address] [place] [address] July, [facility] [address] [place] [address] July, Other chronic pain G89.29 [facility] [address] [facility] [place] [address] July, [facility] [address] [facility] [place] [address] July, Other chronic pain G89.29 [facility] [address] [facility] [place] [address] Jun, [facility] [address] [facility] [place] [address] Jun, Other chronic pain G89.29 [facility] [address] [facility] [place] [address] Jun, [facility] [address] [facility] [place] [address] Jun, Other chronic pain G89.29 [facility] [address] [facility] [place] [address] May, Other chronic pain G89.29 [facility] [address] [facility] [place] [address] May, [facility] [address] [facility] [place] [address] May, [facility] [address] [facility] [place] [address] May, [facility] [address] [facility] [place] [address] May, [facility] [address] [facility] [place] [address] May, [facility] [address] [facility] [place] [address] Apr, [facility] [address] [facility] [place] [address] Apr, [facility] [address] [facility] [place] [address] Apr, [facility] [address] [facility] [place] [address] Apr, [facility] [address] [facility] [place] [address] Apr, [facility] [address] [facility] [place] [address] Apr, [facility] [address] [facility] [place] [address] Apr, [facility] [address] [facility] [place] [address] Apr, [facility] [address] [place] [address] Apr, [facility] [address] [place] [address] Apr, Other chronic pain G89.29 [facility] [address] [facility] [place] [address] Apr, [facility] [address] [place] [id number] Apr, Asymptomatic human immunodeficiency viru s (HIV) infection status Z21 ; Other chronic pain G89.29 and Screening for cardiovascular condition Z13.6 [facility] [address] [facility] [place] [address] Apr, [facility] [address] [facility] [place] [address] Apr, [facility] [address] [place] [address] Apr, [facility] [address] [facility] [place] [address] Apr, Other chronic pain G89.29 [facility] [address] [facility] [place] [address] Mar, Loss of appetite R63.0 [facility] [address] [facility] [place] [place] [address] Mar, [facility] [address] [place] [address] Mar, [facility] [address] [facility] [place] [address] Mar, [facility] [address] [facility] [place] [address] Mar, [facility] [address] [place] [address] Mar, Other chronic pain G89.29 [facility] [address] [facility] [place] [address] Mar, [facility] [address] [place] [address] Mar, [facility] [address] [place] [address] Mar, [facility] [address] [place] [address] Mar, Other chronic pain G89.29 [facility] [address] [facility] [id number] Mar, Asymptomatic human immunodeficiency viru s (HIV) infection status Z21 [facility] [address] [place] [address] Mar, Other chronic pain G89.29 [facility] [address] [place] [place] [address] Mar, [facility] [address] [place] [address] Mar, [facility] [address] [place] [address] Feb, Other chronic pain G89.29 [facility] [address] [place] [address] Feb, Other chronic pain G89.29 [facility] [address] [facility] [id number] Feb, Other chronic pain G89.29 [facility] [address] [place] [id number] Feb, Asymptomatic human immunodeficiency viru s (HIV) infection status Z21 and Other chronic pain G89.29 [facility] [address] [place] [address] Jan, Other chronic pain G89.29 [facility] [address] [place] [address] Jan, Other chronic pain G89.29 [facility] [address] [place] [address] Jan, Asymptomatic human immunodeficiency viru s (HIV) infection status Z21 [facility] [address] [place] [address] Jan, Other chronic pain G89.29 [facility] [address] [place] [address] Jan, [facility] [address] [place] [address] Dec, Other chronic pain G89.29 [facility] [address] [place] [address] Dec, Other chronic pain G89.29 [facility] [address] [id number] Nov, Asymptomatic human immunodeficiency viru s (HIV) infection status Z21 ; Influenza vaccine needed Z23 and Other chronic pain G89.29 [facility] [address] [place] [address] Nov, Other chronic pain G89.[address] [address] Oct, [address] [address] Oct, Other chronic pain G89.[address] [address] Oct, [address] [id number] Sep, Asymptomatic human immunodeficiency viru s (HIV) infection status Z21 ; Other chronic pain G89.29 and Generalized anxiety disorder F41.[address] [address] Jun, [address] [address] Jun, [address] [address] Jun, [address] [id number] Jun, Asymptomatic human immunodeficiency viru s (HIV) infection status Z21 ; Need for pneumococcal vaccine Z23 ; Major depressive disorder, recurrent, moderate F33.1 ; Loss of appetite R63.0 ; Other chronic pain G89.29 ; Other and unspecified noninfectious gastroenteritis and colitis K52.9 and Nausea R11.[address] [address] Jun, [address] [address] Jun, Acute right ankle pain M25.571 [facility] [address] [facility] [place] [address] May, [facility] [address] [facility] [place] [facility] [address] May, Acute right ankle pain M25.571 [facility] [address] [facility] [place] [facility] [address] Apr, [facility] [address] [facility] [place] [address] Apr, [facility] [address] [facility] [place] [facility] [address] Mar, Acute right ankle pain M25.571 [facility] [address] [facility] [place] [address] Mar, [facility] [address] [facility] [place] [address] Mar, [facility] [address] [facility] [place] [address] Mar, [facility] [address] [facility] [place] [address] Mar, [facility] [address] [facility] [place] [facility] [address] Mar, [facility] [address] [facility] [place] [address] Mar, Nausea and vomiting, intractability of v omiting not specified, unspecified vomiting type R11.2 [facility] [address] [facility] [place] [address] Mar, [facility] [address] [facility] [place] [address] Mar, Loss of appetite R63.0 [facility] [address] [facility] [place] [address] Mar, [facility] [address] [facility] [place] [address] Mar, [facility] [address] [facility] [place] [place] [address] Mar, [facility] [address] [place] [address] Feb, Abscess L02.91 [facility] [address] [place] [address] Feb, Acute right ankle pain M25.571 [facility] [address] [place] [address] Feb, [facility] [address] [place] [address] Feb, [facility] [address] [place] [address] Feb, [facility] [address] [place] [address] Feb, Acute right ankle pain M25.571 [facility] [address] [place] [address] Feb, Abscess L02.91 [facility] [address] [place] [id number] Jan, Asymptomatic human immunodeficiency viru s (HIV) infection status Z21 ; Influenza vaccine needed Z23 and Acute right ankle pain M25.571 [facility] [address] [place] [address] Jan, Abscess L02.91 [facility] [address] [place] [address] Nov, [facility] [address] [place] [address] Nov, Abscess L02.91 [facility] [address] [place] [address] Nov, Anxiety F41.9 [facility] [address] [place] [address] Nov, Acute right ankle pain M25.571 [facility] [address] [place] [address] Nov, [facility] [address] [place] [address] Nov, [facility] [address] [place] [address] Nov, Hiccups R06.6 [facility] [address] [facility] [place] [address] 13 Nov, 2016 [facility] [address] [facility] [place] [address] Nov, [facility] [address] [facility] [place] [address] Nov, [facility] [address] [facility] [place] [address] Nov, [facility] [address] [facility] [place] [address] Nov, [facility] [address] [facility] [place] [address] Nov, [facility] [address] [facility] [place] [address] Oct, [facility] [address] [facility] [place] [address] Oct, [facility] [address] [facility] [place] [address] Oct, [facility] [address] [facility] [place] [address] Oct, Abscess L02.91 [facility] [address] [facility] [place] [address] Oct, [facility] [address] [facility] [place] [address] Oct, [facility] [address] [facility] [place] [address] Oct, [facility] [address] [facility] [place] [address] Oct, Abscess L02.91 and Acute right ankle ta n M25.571 [facility] [address] [facility] [place] [address] Oct, [facility] [address] [facility] [place] [address] Oct, [facility] [address] [facility] [place] [address] Oct, Abscess L02.91 [facility] [address] [place] [address] Oct, [facility] [address] [place] [address] Oct, [facility] [address] [place] [id number] Oct, Asymptomatic human immunodeficiency viru s (HIV) infection status Z21 ; 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 [address] [place] [address] Sep, Major depressive disorder, recurrent, mo derate F33.1 [facility] [address] [place] [address] Sep, [facility] [address] [place] [address] Sep, [facility] [address] [place] [address] Sep, [facility] [address] [place] [address] Sep, [facility] [address] [place] [address] Sep, [facility] [address] [place] [address] Aug, [facility] [address] [place] [address] Aug, [facility] [address] [place] [address] Aug, [facility] [address] [place] [address] Aug, Loss of appetite R63.0 ; Major depressiv e disorder, recurrent, moderate F33.1 and Functional diarrhea K59.1 [facility] [address] [place] [address] Aug, Acute hemorrhoid K64.9 and Other osteoar thritis involving multiple joints M15.8 [facility] [address] [place] [address] Aug, Abscess L02.[address] [address] July, Chronic diarrhea K52.[address] [address] July, [address] [id number] July, Asymptomatic human immunodeficiency viru s (HIV) infection status Z21 ; Nicotine dependence, cigarettes, uncomplicated F17.210 ; Chronic diarrhea K52.9 ; Abscess L02.91 ; GERD with esophagitis K21.0 ; Anxiety F41.9 and 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 [address] Jun, Pain in joint involving multiple sites M 25.[address] [address] Jun, [address] [address] Jun, Pain in joint involving multiple sites M 25.[address] [address] Jun, Pain in joint involving multiple sites M 25.50 ; GERD with esophagitis K21.0 and Intractable hiccups R06.[address] [address] May, Pain in joint involving multiple sites M 25.[address] [address] Apr, Pain in joint involving multiple sites M 25.50 and Anxiety F41.[address] [address] Apr, [address] [address] Apr, Chronic diarrhea K52.9 and Pain in joint involving multiple sites M25.[address] [id number] 10 Apr, 2016 Asymptomatic human immunodeficiency viru s (HIV) infection status Z21 ; Mild intermittent asthma without complication J45.20 ; Iron deficiency anemia due to chronic blood loss D50.0 ; Screening, lipid Z13.220 ; Chronic diarrhea K52.9 ; Abscess L02.91 and Projectile vomiting with nausea R11.[address] [address] Feb, Acute hemorrhoid K64.[address] [address] Jan, [address] [address] Jan, Nausea and vomiting, intractability of v omiting not specified, unspecified vomiting type R11.2 and Acute right ankle pain M25.[address] [address] Jan, [address] [address] Jan, Asymptomatic human immunodeficiency viru s (HIV) infection status Z21 ; Iron deficiency anemia due to chronic blood loss D50.0 and Generalized abdominal pain R10.84 [facility] [address] [place] [id number] Dec, Asymptomatic human immunodeficiency viru s (HIV) infection status Z21 ; Mild intermittent asthma without complication J45.20 ; Influenza vaccine needed Z23 and Nicotine dependence, cigarettes, uncomplicated F17.210 [facility] [address] [id number] 2 Oct, [facility] [address] [id number] 2 Oct, [address] [address] 08 May, [address] [address] 14 Feb, [address] [address] 14 Nov, [address] [place] [address] Aug, [facility] [address] [place] [address] 17 Apr, 2011 [facility] [address] [facility] [address] [place], [place] [id number] 1 Jan, IMMUNIZATIONS No Known Immunizations SOCIAL HISTORY Never Assessed REASON FOR VISIT fax from pharmacy PLAN OF CARE VITAL SIGNS MEDICATIONS Unknown Medications RESULTS No Results PROCEDURES No Known procedures INSTRUCTIONS MEDICATIONS ADMINISTERED No Known Medications MEDICAL (GENERAL) HISTORY Type Description Date Medical History HIV Medical History Colitis Medical History chronic pain Medical History depression Surgical History No know Surgical history
--- OUTSIDE RECORDS SUMMARY | 2019-07-04 11:57 | XMS REPORT ---
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 20 Active 449555618 Problem Iron deficiency anemia due to chronic blood loss D 50.0 Active 87294130 Problem Other osteoarthritis involving multiple joints M15 .8 Active 863258746 Problem Asymptomatic human immunodeficiency virus (HIV) infect ion status Z21 Active 16376747 Problem Other and unspecified noninfectious gastroenteritis an d colitis K52.9 Active 98821758 Problem Nicotine dependence, cigarettes, uncomplicated F17 .210 Active 61541530 Problem Other chronic pain G89.29 Active 8 9567128 Problem Generalized anxiety disorder F41.1 A ctive 67058696 Problem GERD with esophagitis K21.0 Active 777770431 Problem Functional diarrhea K59.1 Active 32697637 Problem Major depressive disorder, recurrent, moderate F33 .1 Active 193892572 Problem Loss of appetite R63.0 Active 798 26494 ALLERGIES No Information ENCOUNTERS Encounter Location Date Diagnosis [facility] [address] [place] [address] Mar, Other chronic pain G89.29 [facility] [address] [place] [address] Feb, Loss of appetite R63.[address] [address] Feb, Other chronic pain G89.29 [facility] [address] [place] [address] Feb, Other chronic pain G89.[address] [address] Feb, Other chronic pain G89.29 [facility] [address] [place] [address] Jan, Other chronic pain G89.29 [facility] [address] [place] [id number] Jan, Asymptomatic human immunodeficiency viru s (HIV) infection status Z21 ; GERD with esophagitis K21.0 ; Influenza vaccine needed Z23 and Other chronic pain G89.29 [facility] [address] [place] [address] Dec, Other chronic pain G89.29 [facility] [address] [place] [address] Dec, Other chronic pain G89.29 [facility] [address] [place] [address] Dec, Other chronic pain G89.29 [facility] [address] [place] [address] Dec, Other chronic pain G89.29 [facility] [address] [place] [address] Nov, Other chronic pain G89.29 [facility] [address] [place] [address] Nov, Other chronic pain G89.29 [facility] [address] [place] [address] Oct, Other chronic pain G89.29 [facility] [address] [place] [address] Oct, Other chronic pain G89.29 [facility] [address] [place] [address] Oct, Other chronic pain G89.29 [facility] [address] [place] [address] Oct, Other chronic pain G89.29 [facility] [address] [place] [address] Sep, Other chronic pain G89.29 [facility] [address] [place] [address] Sep, Other chronic pain G89.29 [facility] [address] [place] [id number] Sep, Asymptomatic human immunodeficiency viru s (HIV) infection status Z21 and GERD with esophagitis K21.0 [facility] [address] [place] [facility] [place] [address] Sep, [facility] [address] [place] [facility] [place] [address] Sep, Loss of appetite R63.0 and Other chronic pain G89.29 [facility] [address] [place] [facility] [place] [address] Sep, Other chronic pain G89.29 [facility] [address] [place] [facility] [place] [address] Aug, Other chronic pain G89.29 [facility] [address] [place] [facility] [place] [address] Aug, Other chronic pain G89.29 [facility] [address] [place] [facility] [place] [address] July, Other chronic pain G89.29 [facility] [address] [place] [facility] [place] [address] July, [facility] [address] [place] [facility] [place] [address] July, [facility] [address] [place] [facility] [place] [address] July, Other chronic pain G89.29 [facility] [address] [place] [facility] [place] [address] July, [facility] [address] [place] [facility] [place] [address] July, Other chronic pain G89.29 [facility] [address] [place] [facility] [place] [address] Jun, [facility] [address] [place] [facility] [place] [address] Jun, Other chronic pain G89.29 [facility] [address] [place] [facility] [place] [address] Jun, [facility] [address] [place] [facility] [place] [address] Jun, Other chronic pain G89.29 [facility] [address] [place] [facility] [place] [address] May, Other chronic pain G89.29 [facility] [address] [place] [facility] [place] [address] May, [facility] [address] [place] [facility] [place] [address] May, [facility] [address] [place] [facility] [place] [address] May, [facility] [address] [place] [facility] [place] [address] May, [facility] [address] [place] [facility] [place] [address] May, [facility] [address] [place] [facility] [place] [address] Apr, [facility] [address] [place] [facility] [place] [address] Apr, [facility] [address] [place] [facility] [place] [address] Apr, [facility] [address] [place] [facility] [place] [address] Apr, [facility] [address] [place] [facility] [place] [address] Apr, [facility] [address] [place] [facility] [place] [address] Apr, [facility] [address] [place] [facility] [place] [address] Apr, [facility] [address] [place] [facility] [place] [address] Apr, [facility] [address] [place] [facility] [place] [address] Apr, [facility] [address] [place] [facility] [place] [address] Apr, Other chronic pain G89.29 [facility] [address] [place] [facility] [place] [address] 19 Apr, 2018 [facility] [address] [place] [phone] 15 Apr, 2018 Asymptomatic human immunodeficiency viru s (HIV) infection status Z21 ; Other chronic pain G89.29 and Screening for cardiovascular condition Z13.6 [facility] [address] [facility] [place] [place] [address] 14 Apr, 2018 [facility] [address] [facility] [place] [place] [address] Apr, [facility] [address] [facility] [place] [place] [address] Apr, [facility] [address] [facility] [place] [place] [address] Apr, Other chronic pain G89.29 [facility] [address] [place] [address], [place] [address] Mar, Loss of appetite R63.0 [facility] [address] [facility] [place] [place] [address] Mar, [facility] [address] [facility] [place] [place] [address] Mar, [facility] [address] [facility] [place] [place] [address] Mar, [facility] [address] [place] [address] Mar, [facility] [address] [facility] [place] [place] [address] Mar, Other chronic pain G89.29 [facility] [address] [facility] [place] [place] [address] Mar, [facility] [address] [place] [address] Mar, [facility] [address] [place] [address], [place] [address] Mar, [facility] [address] [place] [address] Mar, Other chronic pain G89.29 [facility] [address] [place], [place] [id number] Mar, Asymptomatic human immunodeficiency viru s (HIV) infection status Z21 [facility] [address] [place] [address] Mar, Other chronic pain G89.29 [facility] [address] [facility] [place] [address] Mar, [facility] [address] [place] [address] Mar, [facility] [address] [place] [address] Feb, Other chronic pain G89.29 [facility] [address] [place] [address] Feb, Other chronic pain G89.29 [facility] [address] [facility] [place] [id number] Feb, Other chronic pain G89.29 [facility] [address] [place] [id number] Feb, Asymptomatic human immunodeficiency viru s (HIV) infection status Z21 and Other chronic pain G89.29 [facility] [address] [place] [address] Jan, Other chronic pain G89.29 [facility] [address] [place] [address] Jan, Other chronic pain G89.29 [facility] [address] [place] [address] Jan, Asymptomatic human immunodeficiency viru s (HIV) infection status Z21 [facility] [address] [place] [address] Jan, Other chronic pain G89.29 [facility] [address] [place] [address] Jan, [facility] [address] [place] [address] Dec, Other chronic pain G89.29 [facility] [address] [place] [address] Dec, Other chronic pain G89.29 [facility] [address] [place] [id number] Nov, Asymptomatic human immunodeficiency viru s (HIV) infection status Z21 ; Influenza vaccine needed Z23 and Other chronic pain G89.29 [facility] [address] [place] [address] 05 Nov, 2017 Other chronic pain G89.29 [facility] [address] [place] [address] Oct, [facility] [address] [place] [address] Oct, Other chronic pain G89.29 [facility] [address] [place] [address] Oct, [facility] [address] [id number] Sep, Asymptomatic human immunodeficiency viru s (HIV) infection status Z21 ; Other chronic pain G89.29 and Generalized anxiety disorder F41.1 [facility] [address] [place] [address] Jun, [facility] [address] [place] [address] Jun, [facility] [address] [place] [address] Jun, [address] [id number] Jun, Asymptomatic human immunodeficiency viru s (HIV) infection status Z21 ; Need for pneumococcal vaccine Z23 ; Major depressive disorder, recurrent, moderate F33.1 ; Loss of appetite R63.0 ; Other chronic pain G89.29 ; Other and unspecified noninfectious gastroenteritis and colitis K52.9 and Nausea R11.0 [facility] [address] [place] [address] Jun, [facility] [address] [place] [address] Jun, Acute right ankle pain M25.571 [facility] [address] [place] [address] May, [facility] [address] [place] [address] May, Acute right ankle pain M25.571 [facility] [address] [place] [facility] [place] [address] Apr, [facility] [address] [place] [facility] [address] Apr, [facility] [address] [place] [facility] [place] [address] Mar, Acute right ankle pain M25.571 [facility] [address] [place] [facility] [place] [address] Mar, [facility] [address] [place] [facility] [place] [address] Mar, [facility] [address] [place] [facility] [place] [address] Mar, [facility] [address] [place] [facility] [address] Mar, [facility] [address] [place] [facility] [address] Mar, [facility] [address] [place] [address] Mar, Nausea and vomiting, intractability of v omiting not specified, unspecified vomiting type R11.2 [facility] [address] [facility] [place] [place] [address] Mar, [facility] [address] [place] [address] Mar, Loss of appetite R63.0 [facility] [address] [place] [address] Mar, [facility] [address] [place] [address] Mar, [facility] [address] [place] [facility] [address] Mar, [facility] [address] [place] [facility] [place] [address] Feb, Abscess L02.91 [facility] [address] [facility] [place] [place] [address] Feb, Acute right ankle pain M25.571 [facility] [address] [place] [address] Feb, [facility] [address] [place] [address] Feb, [facility] [address] [place] [address] Feb, [facility] [address] [place] [address] Feb, Acute right ankle pain M25.571 [facility] [address] [place] [address] Feb, Abscess L02.91 [facility] [address] [place] [phone] Jan, Asymptomatic human immunodeficiency viru s (HIV) infection status Z21 ; Influenza vaccine needed Z23 and Acute right ankle pain M25.571 [facility] [address] [place] [address] Jan, Abscess L02.91 [facility] [address] [place] [address] Nov, [facility] [address] [place] [address] Nov, Abscess L02.91 [facility] [address] [place] [address] Nov, Anxiety F41.9 [facility] [address] [place] [address] Nov, Acute right ankle pain M25.571 [facility] [address] [place] [address] 15 Nov, 2016 [facility] [address] [place] [address] 14 Nov, 2016 [facility] [address] [place] [address] 14 Nov, 2016 Hiccups R06.6 [facility] [address] [place] [address] 13 Nov, 2016 [facility] [address] [place] [address] 08 Nov, 2016 [facility] [address] [place] [facility] [place] [address] Nov, [facility] [address] [place] [facility] [place] [address] Nov, [facility] [address] [place] [facility] [place] [address] Nov, [facility] [address] [place] [facility] [place] [address] Nov, [facility] [address] [place] [facility] [place] [address] Oct, [facility] [address] [place] [facility] [place] [address] Oct, [facility] [address] [place] [facility] [place] [address] Oct, [facility] [address] [place] [facility] [place] [address] Oct, Abscess L02.91 [facility] [address] [place] [facility] [place] [address] Oct, [facility] [address] [place] [facility] [place] [address] Oct, [facility] [address] [place] [facility] [place] [address] Oct, [facility] [address] [place] [facility] [place] [address] Oct, Abscess L02.91 and Acute right ankle ta n M25.571 [facility] [address] [place] [facility] [place] [address] Oct, [facility] [address] [place] [facility] [place] [address] Oct, [facility] [address] [place] [facility] [place] [address] Oct, Abscess L02.91 [facility] [address] [place] [facility] [place] [address] Oct, [facility] [address] [place] [facility] [place] [address] Oct, [address] [id number] Oct, Asymptomatic human immunodeficiency viru s (HIV) infection status Z21 ; [facility] current use of opiate analgesic Z79.891 ; Nicotine dependence, cigarettes, uncomplicated F17.210 ; Iron deficiency anemia due to chronic blood loss D50.0 ; GERD with esophagitis K21.0 ; Major depressive disorder, recurrent, moderate F33.1 and Generalized anxiety disorder F41.1 [facility] [address] [place] [facility] [place] [address] Sep, Major depressive disorder, recurrent, mo derate F33.1 [facility] [address] [facility] [place] [place] [address] Sep, [facility] [address] [facility] [place] [place] [address] Sep, [facility] [address] [facility] [place] [place] [address] Sep, [facility] [address] [facility] [place] [place] [address] Sep, [facility] [address] [facility] [place] [address] Sep, [facility] [address] [facility] [place] [place] [address] Aug, [facility] [address] [facility] [place] [place] [address] Aug, [facility] [address] [facility] [place] [place] [address] Aug, [facility] [address] [place] [address] Aug, Loss of appetite R63.0 ; Major depressiv e disorder, recurrent, moderate F33.1 and Functional diarrhea K59.1 [facility] [address] [facility] [place] [place] [address] Aug, Acute hemorrhoid K64.9 and Other osteoar thritis involving multiple joints M15.8 [facility] [address] [facility] [place] [place] [address] Aug, Abscess L02.91 [facility] [address] [facility] [place] [address] July, Chronic diarrhea K52.[address] [address] July, [facility] [address] [id number] July, Asymptomatic human immunodeficiency viru s (HIV) infection status Z21 ; Nicotine dependence, cigarettes, uncomplicated F17.210 ; Chronic diarrhea K52.9 ; Abscess L02.91 ; GERD with esophagitis K21.0 ; Anxiety F41.9 and 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 [address] Jun, Pain in joint involving multiple sites M 25.[address] [address] Jun, [address] [address] Jun, Pain in joint involving multiple sites M 25.[address] [address] Jun, Pain in joint involving multiple sites M 25.50 ; GERD with esophagitis K21.0 and Intractable hiccups R06.[address] [address] May, Pain in joint involving multiple sites M 25.[address] [address] Apr, Pain in joint involving multiple sites M 25.50 and Anxiety F41.[address] [address] Apr, [address] [address] Apr, Chronic diarrhea K52.9 and Pain in joint involving multiple sites M25.[address] [id number] Apr, Asymptomatic human immunodeficiency viru s (HIV) infection status Z21 ; Mild intermittent asthma without complication J45.20 ; Iron deficiency anemia due to chronic blood loss D50.0 ; Screening, lipid Z13.220 ; Chronic diarrhea K52.9 ; Abscess L02.91 and Projectile vomiting with nausea R11.12 [facility] [address] [place] [address] Feb, Acute hemorrhoid K64.9 [facility] [address] [place] [address] Jan, [facility] [address] [place] [address] Jan, Nausea and vomiting, intractability of v omiting not specified, unspecified vomiting type R11.2 and Acute right ankle pain M25.571 [facility] [address] [place] [address] Jan, [facility] [address] [place] [address] 09 Jan, 2016 Asymptomatic human immunodeficiency viru s (HIV) infection status Z21 ; Iron deficiency anemia due to chronic blood loss D50.0 and Generalized abdominal pain R10.84 [facility] [address] [place] [id number] Dec, Asymptomatic human immunodeficiency viru s (HIV) infection status Z21 ; Mild intermittent asthma without complication J45.20 ; Influenza vaccine needed Z23 and Nicotine dependence, cigarettes, uncomplicated F17.210 [facility] [address] [id number] [phone] Oct, 2013 [facility] [address] [id number] 8 Oct, 2013 [facility] [address] [place] [address] 08 May, 2012 [facility] [address] [place] [address] 14 Feb, 2012 [facility] [address] [place] [address] 14 Nov, 2011 [facility] [address] [place] [address] Aug, [facility] [address] [place] [address] 17 Apr, 2011 [facility] [address] [id number] Jan, IMMUNIZATIONS No Known Immunizations SOCIAL [...]
--- OUTSIDE RECORDS SUMMARY | 2019-07-04 11:57 | XMS REPORT ---
Author Author ARTEMIO Adams Organization 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 20 Active 765289617 Problem Iron deficiency anemia due to chronic blood loss D 50.0 Active 35775323 Problem Other osteoarthritis involving multiple joints M15 .8 Active 205245403 Problem Asymptomatic human immunodeficiency virus (HIV) infect ion status Z21 Active 39609637 Problem Other and unspecified noninfectious gastroenteritis an d colitis K52.9 Active 27278165 Problem Nicotine dependence, cigarettes, uncomplicated F17 .210 Active 83609800 Problem Other chronic pain G89.29 Active 8 9868370 Problem Generalized anxiety disorder F41.1 A ctive 47612483 Problem GERD with esophagitis K21.0 Active 761298487 Problem Functional diarrhea K59.1 Active 77707116 Problem Major depressive disorder, recurrent, moderate F33 .1 Active 704361252 Problem Loss of appetite R63.0 Active 798 04754 ALLERGIES No Information ENCOUNTERS Encounter Location Date Diagnosis [facility] [address] [place] [address] Feb, Loss of appetite R63.[address] [facility] [address] [place] [address] Feb, Other chronic pain G89.[address] [facility] [address] [place] [address] Feb, Other chronic pain G89.[address] [facility] [address] [place] [address] Feb, Other chronic pain G89.[address] [facility] [address] [place] [address] Jan, Other chronic pain G89.29 [facility] [address] [place] [id number] Jan, Asymptomatic human immunodeficiency viru s (HIV) infection status Z21 ; GERD with esophagitis K21.0 ; Influenza vaccine needed Z23 and Other chronic pain G89.29 [facility] [address] [place] [address] Dec, Other chronic pain G89.29 [facility] [address] [place] [address] Dec, Other chronic pain G89.[address] [facility] [address] [place] [address] Dec, Other chronic pain G89.29 [facility] [address] [place] [address] Dec, Other chronic pain G89.29 [facility] [address] [place] [address] Nov, Other chronic pain G89.29 [facility] [address] [place] [address] Nov, Other chronic pain G89.29 [facility] [address] [place] [facility] [place] [address] Oct, Other chronic pain G89.29 [facility] [address] [place] [address] Oct, Other chronic pain G89.29 [facility] [address] [place] [address] Oct, Other chronic pain G89.29 [facility] [address] [place] [address] Oct, Other chronic pain G89.29 [facility] [address] [place] [address] Sep, Other chronic pain G89.29 [facility] [address] [place] [address] Sep, Other chronic pain G89.29 [facility] [address] [place] [id number] Sep, Asymptomatic human immunodeficiency viru s (HIV) infection status Z21 and GERD with esophagitis K21.0 [facility] [address] [place] [facility] [place] [address] Sep, [facility] [address] [place] [facility] [place] [address] Sep, Loss of appetite R63.0 and Other chronic pain G89.29 [facility] [address] [place] [facility] [place] [address] Sep, Other chronic pain G89.29 [facility] [address] [place] [facility] [place] [address] Aug, Other chronic pain G89.29 [facility] [address] [place] [facility] [place] [address] Aug, Other chronic pain G89.29 [facility] [address] [place] [address] July, Other chronic pain G89.29 [facility] [address] [place] [facility] [place] [address] July, [facility] [address] [place] [address] July, [facility] [address] [place] [facility] [place] [address] July, Other chronic pain G89.29 [facility] [address] [place] [facility] [place] [address] July, [facility] [address] [place] [address] July, Other chronic pain G89.29 [facility] [address] [place] [facility] [place] [address] Jun, [facility] [address] [place] [facility] [place] [address] Jun, Other chronic pain G89.29 [facility] [address] [place] [facility] [place] [address] Jun, [facility] [address] [place] [address] Jun, Other chronic pain G89.29 [facility] [address] [place] [facility] [place] [address] May, Other chronic pain G89.29 [facility] [address] [place] [facility] [place] [address] May, [facility] [address] [place] [facility] [place] [address] May, [facility] [address] [place] [facility] [place] [address] May, [facility] [address] [place] [facility] [place] [address] May, [facility] [address] [place] [facility] [place] [address] May, [facility] [address] [place] [facility] [place] [address] Apr, [facility] [address] [place] [facility] [place] [address] Apr, [facility] [address] [place] [facility] [place] [address] Apr, [facility] [address] [place] [facility] [place] [address] Apr, [facility] [address] [place] [facility] [place] [address] Apr, [facility] [address] [place] [facility] [place] [address] Apr, [facility] [address] [place] [address] Apr, [facility] [address] [place] [facility] [place] [address] Apr, [facility] [address] [place] [facility] [place] [address] Apr, [facility] [address] [place] [facility] [place] [address] Apr, Other chronic pain G89.29 [facility] [address] [place] [address] Apr, [address] [id number] Apr, 2018 Asymptomatic human immunodeficiency viru s (HIV) infection status Z21 ; Other chronic pain G89.29 and Screening for cardiovascular condition Z13.6 [facility] [address] [place] [address] 14 Apr, 2018 [facility] [address] [place] [address] Apr, [facility] [address] [place] [address] Apr, [facility] [address] [place] [address] Apr, Other chronic pain G89.29 [facility] [address] [place] [address] Mar, Loss of appetite R63.0 [facility] [address] [place] [address] Mar, [facility] [address] [place] [address] Mar, [facility] [address] [place] [address] Mar, [facility] [address] [place] [address] Mar, [facility] [address] [place] [address] Mar, Other chronic pain G89.29 [facility] [address] [place] [address] Mar, [facility] [address] [place] [address] Mar, [facility] [address] [place] [address] Mar, [facility] [address] [place] [address] Mar, Other chronic pain G89.29 [facility] [address] [place] [id number] Mar, Asymptomatic human immunodeficiency viru s (HIV) infection status Z21 [facility] [address] [place] [address] [place] [address] Mar, Other chronic pain G89.[address] [facility] [address] [place] [address] Mar, [facility] [address] [place] [address] Mar, [facility] [address] [place] [address] Feb, Other chronic pain G89.[address] [facility] [address] [place] [address] Feb, Other chronic pain G89.29 [facility] [address] [facility] [id number] Feb, Other chronic pain G89.29 [facility] [address] [place] [id number] Feb, Asymptomatic human immunodeficiency viru s (HIV) infection status Z21 and Other chronic pain G89.[address] [facility] [address] [place] [address] Jan, Other chronic pain G89.[address] [facility] [address] [place] [address] Jan, Other chronic pain G89.[address] [facility] [address] [place] [address] Jan, Asymptomatic human immunodeficiency viru s (HIV) infection status Z21 [facility] [address] [place] [address] Jan, Other chronic pain G89.[address] [facility] [address] [place] [address] Jan, [facility] [address] [place] [address] Dec, Other chronic pain G89.[address] [facility] [address] [place] [address] Dec, Other chronic pain G89.29 [facility] [address] [place] [phone] Nov, Asymptomatic human immunodeficiency viru s (HIV) infection status Z21 ; Influenza vaccine needed Z23 and Other chronic pain G89.[address] [facility] [address] [place] [address] 05 Nov, 2017 Other chronic pain G89.[address] [facility] [address] [place] [address] Oct, [facility] [address] [place] [address] 15 Oct, 2017 Other chronic pain G89.[address] [facility] [address] [place] [address] 08 Oct, 2017 [facility] [address] [place] [phone] Sep, Asymptomatic human immunodeficiency viru s (HIV) infection status Z21 ; Other chronic pain G89.29 and Generalized anxiety disorder F41.[address] [facility] [address] [place] [address] Jun, [facility] [address] [place] [address] Jun, [facility] [address] [place] [address] Jun, [address] [id number] Jun, Asymptomatic human immunodeficiency viru s (HIV) infection status Z21 ; Need for pneumococcal vaccine Z23 ; Major depressive disorder, recurrent, moderate F33.1 ; Loss of appetite R63.0 ; Other chronic pain G89.29 ; Other and unspecified noninfectious gastroenteritis and colitis K52.9 and Nausea R11.[address] [facility] [address] [place] [address] Jun, [facility] [address] [place] [address] Jun, Acute right ankle pain M25.[address] [address] May, [facility] [address] [place] [address] May, Acute right ankle pain M25.[address] [address] Apr, [facility] [address] [place] [facility] [place] [address] Apr, [facility] [address] [place] [facility] [place] [address] Mar, Acute right ankle pain M25.571 [facility] [address] [place] [facility] [place] [address] Mar, [facility] [address] [place] [facility] [place] [address] Mar, [facility] [address] [place] [facility] [place] [address] Mar, [facility] [address] [place] [facility] [place] [address] Mar, [facility] [address] [place] [facility] [place] [address] Mar, [facility] [address] [place] [address] Mar, Nausea and vomiting, intractability of v omiting not specified, unspecified vomiting type R11.2 [facility] [address] [place] [facility] [place] [address] Mar, [facility] [address] [place] [address] Mar, Loss of appetite R63.0 [facility] [address] [place] [address] Mar, [facility] [address] [place] [address] Mar, [facility] [address] [place] [address] Mar, [facility] [address] [place] [address] Feb, Abscess L02.91 [facility] [address] [place] [address] Feb, Acute right ankle pain M25.571 [facility] [address] [place] [address] Feb, [facility] [address] [place] [address] Feb, [facility] [address] [place] [address] Feb, [facility] [address] [place] [address] Feb, Acute right ankle pain M25.[address] [facility] [address] [place] [address] Feb, Abscess L02.91 [facility] [address] [place] [phone] Jan, Asymptomatic human immunodeficiency viru s (HIV) infection status Z21 ; Influenza vaccine needed Z23 and Acute right ankle pain M25.571 [facility] [address] [place] [address] Jan, Abscess L02.91 [facility] [address] [place] [address] Nov, [facility] [address] [place] [address] Nov, Abscess L02.91 [facility] [address] [place] [address] Nov, Anxiety F41.9 [facility] [address] [place] [address] Nov, Acute right ankle pain M25.571 [facility] [address] [place] [address] 15 Nov, 2016 [facility] [address] [place] [address] 14 Nov, 2016 [facility] [address] [place] [address] 14 Nov, 2016 Hiccups R06.6 [facility] [address] [place] [address] 13 Nov, 2016 [facility] [address] [place] [address] 08 Nov, 2016 [facility] [address] [place] [address] Nov, [facility] [address] [place] [facility] [place] [address] Nov, [facility] [address] [place] [facility] [place] [address] Nov, [facility] [address] [place] [facility] [place] [address] Nov, [facility] [address] [place] [facility] [place] [address] Oct, [facility] [address] [place] [facility] [place] [address] Oct, [facility] [address] [place] [facility] [place] [address] Oct, [facility] [address] [place] [facility] [place] [address] Oct, Abscess L02.91 [facility] [address] [place] [facility] [place] [address] Oct, [facility] [address] [place] [facility] [place] [address] Oct, [facility] [address] [place] [facility] [place] [address] Oct, [facility] [address] [place] [facility] [place] [address] Oct, Abscess L02.91 and Acute right ankle ta n M25.571 [facility] [address] [place] [facility] [place] [address] Oct, [facility] [address] [place] [facility] [place] [address] Oct, [facility] [address] [place] [facility] [place] [address] Oct, Abscess L02.91 [facility] [address] [place] [facility] [place] [address] Oct, [facility] [address] [place] [facility] [place] [address] Oct, [facility] [address] [place] [phone] Oct, Asymptomatic human immunodeficiency viru s (HIV) infection status Z21 ; 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 [address] [place] [address] Sep, Major depressive disorder, recurrent, mo derate F33.[address] [facility] [address] [place] [address] Sep, [facility] [address] [place] [address] Sep, [facility] [address] [place] [address] Sep, [facility] [address] [place] [address] Sep, [facility] [address] [place] [address] Sep, [facility] [address] [place] [address] Aug, [facility] [address] [place] [address] Aug, [facility] [address] [place] [address] Aug, [facility] [address] [place] [address] Aug, Loss of appetite R63.0 ; Major depressiv e disorder, recurrent, moderate F33.1 and Functional diarrhea K59.[address] [facility] [address] [place] [address] Aug, Acute hemorrhoid K64.9 and Other osteoar thritis involving multiple joints M15.[address] [facility] [address] [place] [address] Aug, Abscess L02.[address] [facility] [address] [place] [address] July, Chronic diarrhea K52.[address] [facility] [address] [place] [address] July, [facility] [address] [place] [phone] July, Asymptomatic human immunodeficiency viru s (HIV) infection status Z21 ; Nicotine dependence, cigarettes, uncomplicated F17.210 ; Chronic diarrhea K52.9 ; Abscess L02.91 ; GERD with esophagitis K21.0 ; Anxiety F41.9 and 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 [address] Jun, Pain in joint involving multiple sites M 25.[address] [address] Jun, [address] [address] Jun, Pain in joint involving multiple sites M 25.[address] [address] Jun, Pain in joint involving multiple sites M 25.50 ; GERD with esophagitis K21.0 and Intractable hiccups R06.[address] [address] May, Pain in joint involving multiple sites M 25.[address] [address] Apr, Pain in joint involving multiple sites M 25.50 and Anxiety F41.[address] [address] Apr, [address] [address] Apr, Chronic diarrhea K52.9 and Pain in joint involving multiple sites M25.50 [facility] [address] [place] [phone] Apr, Asymptomatic human immunodeficiency viru s (HIV) infection status Z21 ; Mild intermittent asthma without complication J45.20 ; Iron deficiency anemia due to chronic blood loss D50.0 ; Screening, lipid Z13.220 ; Chronic diarrhea K52.9 ; Abscess L02.91 and Projectile vomiting with nausea R11.[address] [address] Feb, Acute hemorrhoid K64.[address] [facility] [address] [place] [address] Jan, [facility] [address] [place] [address] Jan, Nausea and vomiting, intractability of v omiting not specified, unspecified vomiting type R11.2 and Acute right ankle pain M25.[address] [facility] [address] [place] [address] 10 Jan, [address] [facility] [address] [place] [address] 09 Jan, 2016 Asymptomatic human immunodeficiency viru s (HIV) infection status Z21 ; Iron deficiency anemia due to chronic blood loss D50.0 and Generalized abdominal pain R10.84 [facility] [address] [place] [phone] Dec, Asymptomatic human immunodeficiency viru s (HIV) infection status Z21 ; Mild intermittent asthma without complication J45.20 ; Influenza vaccine needed Z23 and Nicotine dependence, cigarettes, uncomplicated F17.210 [facility] [address] [facility] [address] [place] [id number] 9 Oct, 2013 [facility] [address] [facility] [address] [place] [id number] 8 Oct, [address] [facility] [address] [place] [address] 08 May, [address] [facility] [address] [place] [address] 14 Feb, [address] [facility] [address] [place] [address] 14 Nov, [address] [facility] [address] [place] [address] Aug, [facility] [address] [place] [address] 17 Apr, 2011 [facility] [address] [facility] [address] [place] [id number] 8 Jan, 2011 IMMUNIZATIONS No Known Immunizations SOCIAL HISTORY Never Assessed REASON FOR VISIT dronabinol refills PLAN OF CARE VITAL SIGNS MEDICATIONS Medication Instructions Dosage Frequency Start Date End Date Duration S aby Marinol 10 MG Orally twice a day 1 capsule 12h 24 Aug, 2016 30 days Active RESULTS No Results PROCEDURES No Known procedures INSTRUCTIONS MEDICATIONS ADMINISTERED No Known Medications MEDICAL (GENERAL) HISTORY Type Description Date Medical History HIV Medical History Colitis Medical History chronic pain Medical History depression Surgical History No know Surgical history
--- OUTSIDE RECORDS SUMMARY | 2019-07-04 11:57 | XMS REPORT ---
Author Author ARTEMIO Adams Organization [facility] Address [address], [place] [id number] Care Team Providers Care Tobacco Prevention Health Educator Name Role Phone Araseli Adams Unavailable PROBLEMS Type Condition ICD9-CM Code [id number] Code Onset Dates Condition S tatus SNOMED Code Problem Mild intermittent asthma without complication J45. 20 Active 895329068 Problem Iron deficiency anemia due to chronic blood loss D 50.0 Active 21801937 Problem Other osteoarthritis involving multiple joints M15 .8 Active 999330012 Problem Asymptomatic human immunodeficiency virus (HIV) infect ion status Z21 Active 21909144 Problem Other and unspecified noninfectious gastroenteritis an d colitis K52.9 Active 24225828 Problem Nicotine dependence, cigarettes, uncomplicated F17 .210 Active 53942137 Problem Other chronic pain G89.29 Active 8 7102539 Problem Generalized anxiety disorder F41.1 A ctive 65043134 Problem GERD with esophagitis K21.0 Active 746745729 Problem Functional diarrhea K59.1 Active 82674055 Problem Major depressive disorder, recurrent, moderate F33 .1 Active 103616845 Problem Loss of appetite R63.0 Active 798 54580 ALLERGIES No Known Allergies ENCOUNTERS Encounter Location Date Diagnosis [facility] [address] [place] [address] Feb, Loss of appetite R63.0 [facility] [address] [place] [address] Feb, Other chronic pain G89.29 [facility] [address] [place] [address] Feb, Other chronic pain G89.29 [facility] [address] [place] [address] Feb, Other chronic pain G89.29 [facility] [address] [place] [address] Jan, Other chronic pain G89.29 [facility] [address] [place] [id number] Jan, Asymptomatic human immunodeficiency viru s (HIV) infection status Z21 ; GERD with esophagitis K21.0 ; Influenza vaccine needed Z23 and Other chronic pain G89.29 [facility] [address] [place] [address] Dec, Other chronic pain G89.29 [facility] [address] [place] [address] Dec, Other chronic pain G89.29 [facility] [address] [place] [address] Dec, Other chronic pain G89.29 [facility] [address] [place] [address] Dec, Other chronic pain G89.29 [facility] [address] [place] [address] Nov, Other chronic pain G89.29 [facility] [address] [place] [address] Nov, Other chronic pain G89.29 [facility] [address] [place] [address] Oct, Other chronic pain G89.29 [facility] [address] [place] [address] Oct, Other chronic pain G89.29 [facility] [address] [place] [address] Oct, Other chronic pain G89.29 [facility] [address] [place] [address] Oct, Other chronic pain G89.29 [facility] [address] [place] [address] Sep, Other chronic pain G89.29 [facility] [address] [place] [address] Sep, Other chronic pain G89.29 [facility] [address] [place] [id number] Sep, Asymptomatic human immunodeficiency viru s (HIV) infection status Z21 and GERD with esophagitis K21.0 [facility] [address] [facility] [place] [address] Sep, [facility] [address] [place] [address] Sep, Loss of appetite R63.0 and Other chronic pain G89.29 [facility] [address] [facility] [place] [address] Sep, Other chronic pain G89.29 [facility] [address] [facility] [place] [address] Aug, Other chronic pain G89.29 [facility] [address] [facility] [place] [address] Aug, Other chronic pain G89.29 [facility] [address] [facility] [place] [address] July, Other chronic pain G89.29 [facility] [address] [facility] [place] [address] July, [facility] [address] [place] [address] July, [facility] [address] [facility] [place] [address] July, Other chronic pain G89.29 [facility] [address] [facility] [place] [address] July, [facility] [address] [facility] [place] [address] July, Other chronic pain G89.29 [facility] [address] [facility] [place] [address] Jun, [facility] [address] [facility] [place] [address] Jun, Other chronic pain G89.29 [facility] [address] [facility] [place] [address] Jun, [facility] [address] [place] [address] Jun, Other chronic pain G89.29 [facility] [address] [facility] [place] [address] May, Other chronic pain G89.29 [facility] [address] [facility] [place] [address] May, [facility] [address] [facility] [place] [address] May, [facility] [address] [facility] [place] [address] May, [facility] [address] [facility] [place] [address] May, [facility] [address] [facility] [place] [address] May, [facility] [address] [facility] [place] [address] Apr, [facility] [address] [facility] [place] [address] Apr, [facility] [address] [facility] [place] [address] Apr, [facility] [address] [facility] [place] [address] Apr, [facility] [address] [facility] [place] [address] Apr, [facility] [address] [facility] [place] [address] Apr, [facility] [address] [facility] [place] [address] Apr, [facility] [address] [facility] [place] [address] Apr, [facility] [address] [facility] [place] [address] Apr, [facility] [address] [facility] [place] [address] Apr, Other chronic pain G89.29 [facility] [address] [facility] [place] [address] Apr, [address] [id number] 15 Apr, 2018 Asymptomatic human immunodeficiency viru s (HIV) infection status Z21 ; Other chronic pain G89.29 and Screening for cardiovascular condition Z13.6 [facility] [address] [place] [address] 14 Apr, 2018 [facility] [address] [place] [address] Apr, [facility] [address] [place] [address] Apr, [facility] [address] [place] [address] Apr, Other chronic pain G89.29 [facility] [address] [place] [address] Mar, Loss of appetite R63.0 [facility] [address] [place] [address] Mar, [facility] [address] [place] [address] Mar, [facility] [address] [place] [address] Mar, [facility] [address] [place] [address] Mar, [facility] [address] [place] [address] Mar, Other chronic pain G89.29 [facility] [address] [place] [address] Mar, [facility] [address] [place] [address] Mar, [facility] [address] [place] [address] Mar, [facility] [address] [place] [address] Mar, Other chronic pain G89.29 [facility] [address] [place] [address], [place] [id number] Mar, Asymptomatic human immunodeficiency viru s (HIV) infection status Z21 [facility] [address] [place] [address], [place] [address] Mar, Other chronic pain G89.29 [facility] [address] [facility] [address] Mar, [facility] [address] [place] [address] Mar, [facility] [address] [place] [address] Feb, Other chronic pain G89.29 [facility] [address] [place] [address] Feb, Other chronic pain G89.29 [facility] [address] [facility] [place] [id number] Feb, Other chronic pain G89.29 [facility] [address] [place] [id number] Feb, Asymptomatic human immunodeficiency viru s (HIV) infection status Z21 and Other chronic pain G89.29 [facility] [address] [place] [address] Jan, Other chronic pain G89.29 [facility] [address] [place] [address] Jan, Other chronic pain G89.29 [facility] [address] [place] [address] Jan, Asymptomatic human immunodeficiency viru s (HIV) infection status Z21 [facility] [address] [place] [address] Jan, Other chronic pain G89.29 [facility] [address] [place] [address] Jan, [facility] [address] [place] [address] Dec, Other chronic pain G89.29 [facility] [address] [place] [address] Dec, Other chronic pain G89.29 [facility] [address] [place] [id number] Nov, Asymptomatic human immunodeficiency viru s (HIV) infection status Z21 ; Influenza vaccine needed Z23 and Other chronic pain G89.29 [facility] [address] [place] [address] 05 Nov, 2017 Other chronic pain G89.29 [facility] [address] [place] [address] Oct, [facility] [address] [place] [address] 15 Oct, 2017 Other chronic pain G89.29 [facility] [address] [place] [address] 08 Oct, 2017 [facility] [address] [place] [id number] Sep, Asymptomatic human immunodeficiency viru s (HIV) infection status Z21 ; Other chronic pain G89.29 and Generalized anxiety disorder F41.1 [facility] [address] [place] [address] Jun, [facility] [address] [place] [address] Jun, [facility] [address] [place] [address] Jun, [address] [id number] Jun, Asymptomatic human immunodeficiency viru s (HIV) infection status Z21 ; Need for pneumococcal vaccine Z23 ; Major depressive disorder, recurrent, moderate F33.1 ; Loss of appetite R63.0 ; Other chronic pain G89.29 ; Other and unspecified noninfectious gastroenteritis and colitis K52.9 and Nausea R11.0 [facility] [address] [place] [address] Jun, [facility] [address] [place] [address] Jun, Acute right ankle pain M25.[address] [address] May, [facility] [address] [place] [address] May, Acute right ankle pain M25.[address] [address] Apr, [facility] [address] [facility] [place] [address] Apr, [facility] [address] [place] [address] Mar, Acute right ankle pain M25.571 [facility] [address] [facility] [place] [address] Mar, [facility] [address] [facility] [place] [address] Mar, [facility] [address] [facility] [place] [address] Mar, [facility] [address] [facility] [place] [address] Mar, [facility] [address] [facility] [place] [address] Mar, [facility] [address] [place] [address] Mar, Nausea and vomiting, intractability of v omiting not specified, unspecified vomiting type R11.2 [facility] [address] [place] [address] Mar, [facility] [address] [place] [address] Mar, Loss of appetite R63.0 [facility] [address] [place] [address] Mar, [facility] [address] [place] [address] Mar, [facility] [address] [place] [address] Mar, [facility] [address] [place] [address] Feb, Abscess L02.91 [facility] [address] [place] [address] Feb, Acute right ankle pain M25.571 [facility] [address] [place] [address] Feb, [facility] [address] [place] [address] Feb, [facility] [address] [place] [address] Feb, [facility] [address] [place] [address] Feb, Acute right ankle pain M25.571 [facility] [address] [place] [address] Feb, Abscess L02.91 [facility] [address] [place] [id number] Jan, Asymptomatic human immunodeficiency viru s (HIV) infection status Z21 ; Influenza vaccine needed Z23 and Acute right ankle pain M25.571 [facility] [address] [place] [address] Jan, Abscess L02.91 [facility] [address] [place] [address] Nov, [facility] [address] [place] [address] Nov, Abscess L02.91 [facility] [address] [place] [address] Nov, Anxiety F41.9 [facility] [address] [place] [address] Nov, Acute right ankle pain M25.571 [facility] [address] [place] [address] 15 Nov, 2016 [facility] [address] [place] [address] 14 Nov, 2016 [facility] [address] [place] [address] Nov, Hiccups R06.6 [facility] [address] [place] [address] 13 Nov, 2016 [facility] [address] [place] [address] 08 Nov, 2016 [facility] [address] [place] [address] Nov, [facility] [address] [facility] [place] [address] Nov, [facility] [address] [facility] [place] [address] Nov, [facility] [address] [facility] [place] [address] Nov, [facility] [address] [facility] [place] [address] Oct, [facility] [address] [facility] [place] [address] Oct, [facility] [address] [facility] [place] [address] Oct, [facility] [address] [facility] [place] [address] Oct, Abscess L02.91 [facility] [address] [facility] [place] [address] Oct, [facility] [address] [facility] [place] [address] Oct, [facility] [address] [facility] [place] [address] Oct, [facility] [address] [facility] [place] [address] Oct, Abscess L02.91 and Acute right ankle ta n M25.571 [facility] [address] [facility] [place] [address] Oct, [facility] [address] [facility] [place] [address] Oct, [facility] [address] [facility] [place] [address] Oct, Abscess L02.91 [facility] [address] [facility] [place] [address] Oct, [facility] [address] [facility] [place] [address] Oct, [facility] [address] [place] [id number] Oct, Asymptomatic human immunodeficiency viru s (HIV) infection status Z21 ; 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 ; Nicotine dependence, cigarettes, uncomplicated F17.210 ; Iron deficiency anemia due to chronic blood loss D50.0 ; GERD with esophagitis K21.0 ; Major depressive disorder, recurrent, moderate F33.1 and Generalized anxiety disorder F41.1 [facility] [address] [place] [address] Sep, Major depressive disorder, recurrent, mo derate F33.1 [facility] [address] [place] [address] Sep, [facility] [address] [place] [address] Sep, [facility] [address] [place] [address] Sep, [facility] [address] [place] [address] Sep, [facility] [address] [place] [address] Sep, [facility] [address] [place] [address] Aug, [facility] [address] [place] [address] Aug, [facility] [address] [place] [address] Aug, [facility] [address] [place] [address] Aug, Loss of appetite R63.0 ; Major depressiv e disorder, recurrent, moderate F33.1 and Functional diarrhea K59.1 [facility] [address] [place] [address] Aug, Acute hemorrhoid K64.9 and Other osteoar thritis involving multiple joints M15.8 [facility] [address] [place] [address] Aug, Abscess L02.91 [facility] [address] [place] [address] July, Chronic diarrhea K52.9 [facility] [address] [place] [address] July, [place] [address] [place] [id number] July, Asymptomatic human immunodeficiency viru s (HIV) infection status Z21 ; Nicotine dependence, cigarettes, uncomplicated F17.210 ; Chronic diarrhea K52.9 ; Abscess L02.91 ; GERD with esophagitis K21.0 ; Anxiety F41.9 and 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 [address] Jun, Pain in joint involving multiple sites M 25.[address] [address] Jun, [address] [address] Jun, Pain in joint involving multiple sites M 25.[address] [address] Jun, Pain in joint involving multiple sites M 25.50 ; GERD with esophagitis K21.0 and Intractable hiccups R06.[address] [address] May, Pain in joint involving multiple sites M 25.[address] [address] Apr, Pain in joint involving multiple sites M 25.50 and Anxiety F41.[address] [address] Apr, [address] [address] Apr, Chronic diarrhea K52.9 and Pain in joint involving multiple sites M25.[address] [id number] Apr, Asymptomatic human immunodeficiency viru s (HIV) infection status Z21 ; Mild intermittent asthma without complication J45.20 ; Iron deficiency anemia due to chronic blood loss D50.0 ; Screening, lipid Z13.220 ; Chronic diarrhea K52.9 ; Abscess L02.91 and Projectile vomiting with nausea R11.[address] [address] Feb, Acute hemorrhoid K64.9 [facility] [address] [place] [address] Jan, [facility] [address] [place] [address] Jan, Nausea and vomiting, intractability of v omiting not specified, unspecified vomiting type R11.2 and Acute right ankle pain M25.571 [facility] [address] [place] [address] 10 Jan, 2016 [facility] [address] [place] [address] 09 Jan, 2016 Asymptomatic human immunodeficiency viru s (HIV) infection status Z21 ; Iron deficiency anemia due to chronic blood loss D50.0 and Generalized abdominal pain R10.84 [facility] [address] [place] [address] Dec, Asymptomatic human immunodeficiency viru s (HIV) infection status Z21 ; Mild intermittent asthma without complication J45.20 ; Influenza vaccine needed Z23 and Nicotine dependence, cigarettes, uncomplicated F17.210 [facility] [address] [address] [place] [id number] 9 Oct, 2013 [facility] [address] [id number] 8 Oct, 2013 [facility] [address] [place] [address] 08 May, 2012 [facility] [address] [place] [address] 14 Feb, 2012 [facility] [address] [place] [address] 14 Nov, 2011 [facility] [address] [place] [address] Aug, [facility] [address] [place] [address] Apr, [facility] [address] [facility] [address] [place] [id number] 1 8 Jan, 2011 IMMUNIZATIONS Vaccine Route Administration Date Status Influenza Split 3 yrs > (QUAD) IM Intramuscular Jan 10, 2019 Administered SOCIAL HISTORY Never Assessed REASON FOR VISIT [facility] HIV f/u PLAN OF CARE Activity Details Follow Up 4 months, prn Reason: VITAL SIGNS Height 65.5 in 2019-01-10 Weight 157 lbs 2019-01-10 Temperature 98.8 degrees Fahrenheit 2019-01-10 Heart Rate 109 /min 2019-01-10 Respiratory Rate 20 /min 2019-01-10 Oximetry 96 % 2019-01-10 BMI 25.73 kg/m2 2019-01-10 Blood pressure systolic 124 mm Hg 2019-01-10 Blood pressure diastolic 68 mm Hg 2019-01-10 MEDICATIONS Medication Instructions Dosage Frequency Start Date End Date Duration S tatus Marinol 10 MG Orally twice a day 1 capsule 12h 24 Aug, 2016 30 days Active Biktarvy 50 MG/200 MG/25 MG Orally Once daily 1 tablet 24h 15 F 2018 30 days Active Dronabinol 10MG TAKE ONE CAPSULE BY MOUTH TWICE DAILY Active Percocet 7.5-325 MG Orally every 6 hrs 1 tablet as needed 6h 11 Apr, 2016 7 days Active RESULTS Name Result Date Reference Range Human Immunodeficiency Virus (HIV-1), Quantitative, Re al-time PCR (graph) 60473 2019-01-10 HIV-1 RNA by PCR <20 log10 HIV-1 RNA TNP PDF . Rapid Plasma Reagin (RPR), Qualitative Test [id number] 2019-01-10 RPR Reactive Non Reactive RPR, Quant. 1:1 NonRea<1:1 Metabolic Panel (14), Comprehensive (CMP) 38804 2019-01-10 Glucose 85 65-99 BUN 22 6-24 Creatinine 1.14 0.76-1.27 eGFR If NonAfricn Am 80 >59 eGFR If Africn Am 92 >59 BUN/Creatinine Ratio 19 9-20 Sodium 137 134-144 Potassium 5.0 3.5-5.2 Chloride 99 96-106 Carbon Dioxide, Total 22 20-29 Calcium 10.8 8.7-10.2 Protein, Total 8.2 6.0-8.5 Albumin 5.4 3.5-5.5 Globulin, Total 2.8 1.5-4.5 A/G Ratio 1.9 1.2-2.2 Bilirubin, Total 0.4 0.0-1.2 Alkaline Phosphatase 72 39-117 AST (SGOT) 25 0-40 ALT (SGPT) 19 0-44 CD4/CD8 Ratio Profile [id number] 2019-01-10 Absolute CD 4 Freedom 570 254-8808 % CD 4 Pos. Lymph. 20.8 30.8-58.5 Abs. CD 8 Suppressor 639 109-897 % CD 8 Pos. Lymph. 42.6 12.0-35.5 CD4/CD8 Ratio 0.49 0.92-3.72 WBC 8.7 3.4-10.8 RBC 4.82 4.14-5.80 Hemoglobin 13.8 13.0-17.7 Hematocrit 40.9 37.5-51.0 MCV 85 79-97 MCH 28.6 26.6-33.0 MCHC 33.7 31.5-35.7 RDW 14.7 11.6-14.4 Platelets 349 150-450 Neutrophils 68 Not Estab. Lymphs 18 Not Estab. Monocytes 9 Not Estab. Eos 4 Not Estab. Basos 1 Not Estab. Immature Cells INVASIVE CARDIOLOGIST Neutrophils (Absolute) 6.0 1.4-7.0 Lymphs (Absolute) 1.5 0.7-3.1 Monocytes(Absolute) 0.8 0.1-0.9 Eos (Absolute) 0.3 0.0-0.4 Baso (Absolute) 0.1 0.0-0.2 Immature Granulocytes 0 Not Estab. Immature Grans (Abs) 0.0 0.0-0.1 NRBC INVASIVE CARDIOLOGIST Hematology Comments: INVASIVE CARDIOLOGIST PROCEDURES Procedure Date Ordered Result Body Site IMMUNIZATION ADMIN Jan 10, 2019 FLU VAC NO PRSV 4 CHRISTEN 3 YRS+ Jan 10, 2019 BLOOD SEROLOGY, QUALITATIVE Jan 10, 2019 COMPREHEN METABOLIC PANEL Jan 10, 2019 HIV-1, DNA, QUANT Jan 10, 2019 T CELL, ABSOLUTE COUNT/RATIO Jan 10, 2019 INSTRUCTIONS MEDICATIONS ADMINISTERED No Known Medications MEDICAL (GENERAL) HISTORY Type Description Date Medical History HIV Medical History Colitis Medical History chronic pain Medical History depression Surgical History No know Surgical history
--- OUTSIDE RECORDS SUMMARY | 2019-07-04 11:57 | XMS REPORT ---
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 20 Active 200231926 Problem Iron deficiency anemia due to chronic blood loss D 50.0 Active 39951205 Problem Other osteoarthritis involving multiple joints M15 .8 Active 286208237 Problem Asymptomatic human immunodeficiency virus (HIV) infect ion status Z21 Active 56923954 Problem Other and unspecified noninfectious gastroenteritis an d colitis K52.9 Active 81699309 Problem Nicotine dependence, cigarettes, uncomplicated F17 .210 Active 28438943 Problem Other chronic pain G89.29 Active 8 4754668 Problem Generalized anxiety disorder F41.1 A ctive 03825041 Problem GERD with esophagitis K21.0 Active 241836479 Problem Functional diarrhea K59.1 Active 32157325 Problem Major depressive disorder, recurrent, moderate F33 .1 Active 207662230 Problem Loss of appetite R63.0 Active 798 82008 ALLERGIES No Information ENCOUNTERS Encounter Location Date Diagnosis [address] [address] Feb, [facility] [address] [place] [address] Feb, Other chronic pain G89.[address] [address] Feb, Other chronic pain G89.[address] [address] Feb, Other chronic pain G89.[address] [address] Jan, Other chronic pain G89.29 [facility] [address] [place] [id number] Jan, Asymptomatic human immunodeficiency viru s (HIV) infection status Z21 ; GERD with esophagitis K21.0 ; Influenza vaccine needed Z23 and Other chronic pain G89.29 [facility] [address] [place] [address] Dec, Other chronic pain G89.29 [facility] [address] [place] [address] Dec, Other chronic pain G89.29 [facility] [address] [place] [address] Dec, Other chronic pain G89.29 [facility] [address] [place] [address] Dec, Other chronic pain G89.29 [facility] [address] [place] [address] Nov, Other chronic pain G89.29 [facility] [address] [place] [address] Nov, Other chronic pain G89.29 [facility] [address] [place] [address] Oct, Other chronic pain G89.29 [facility] [address] [place] [address] Oct, Other chronic pain G89.29 [facility] [address] [place] [address] Oct, Other chronic pain G89.29 [facility] [address] [place] [address] Oct, Other chronic pain G89.29 [facility] [address] [place] [address] Sep, Other chronic pain G89.29 [facility] [address] [place] [address] Sep, Other chronic pain G89.29 [facility] [address] [place] [id number] Sep, Asymptomatic human immunodeficiency viru s (HIV) infection status Z21 and GERD with esophagitis K21.0 [facility] [address] [place] [facility] [place] [address] Sep, [facility] [address] [place] [facility] [place] [address] Sep, Loss of appetite R63.0 and Other chronic pain G89.29 [facility] [address] [place] [facility] [place] [address] Sep, Other chronic pain G89.29 [facility] [address] [place] [facility] [place] [address] Aug, Other chronic pain G89.29 [facility] [address] [place] [address] Aug, Other chronic pain G89.29 [facility] [address] [place] [facility] [place] [address] July, Other chronic pain G89.29 [facility] [address] [place] [facility] [place] [address] July, [facility] [address] [place] [facility] [place] [address] July, [facility] [address] [place] [facility] [place] [address] July, Other chronic pain G89.29 [facility] [address] [place] [facility] [place] [address] July, [facility] [address] [place] [facility] [place] [address] July, Other chronic pain G89.29 [facility] [address] [place] [facility] [place] [address] Jun, [facility] [address] [place] [facility] [place] [address] Jun, Other chronic pain G89.29 [facility] [address] [place] [facility] [place] [address] Jun, [facility] [address] [place] [address] Jun, Other chronic pain G89.29 [facility] [address] [place] [facility] [place] [address] May, Other chronic pain G89.29 [facility] [address] [place] [facility] [place] [address] May, [facility] [address] [place] [address] May, [facility] [address] [place] [facility] [place] [facility] [address] May, [facility] [address] [place] [facility] [place] [address] May, [facility] [address] [place] [facility] [place] [facility] [address] May, [facility] [address] [place] [facility] [place] [address] Apr, [facility] [address] [place] [address] Apr, [facility] [address] [place] [facility] [place] [address] Apr, [facility] [address] [place] [address] Apr, [facility] [address] [place] [facility] [place] [address] Apr, [facility] [address] [place] [facility] [place] [facility] [address] Apr, [facility] [address] [facility] [address] Apr, [facility] [address] [place] [facility] [place] [address] Apr, [facility] [address] [facility] [address] Apr, [facility] [address] [place] [facility] [place] [address] Apr, Other chronic pain G89.29 [facility] [address] [place] [facility] [place] [address] Apr, [facility] [address] [place] [phone] Apr, Asymptomatic human immunodeficiency viru s (HIV) infection status Z21 ; Other chronic pain G89.29 and Screening for cardiovascular condition Z13.6 [facility] [address] [facility] [address] 14 Apr, 2018 [facility] [address] [facility] [address] 12 Apr, 2018 [facility] [address] [place] [address] Apr, [facility] [address] [facility] [address] Apr, Other chronic pain G89.29 [facility] [address] [facility] [address] Mar, Loss of appetite R63.0 [facility] [address] [facility] [address] Mar, [facility] [address] [facility] [address] Mar, [facility] [address] [facility] [address] Mar, [facility] [address] [place] [address] Mar, [facility] [address] [facility] [address] Mar, Other chronic pain G89.29 [facility] [address] [place] [address] Mar, [facility] [address] [place] [address] Mar, [facility] [address] [place] [address] Mar, [facility] [address] [place] [address] Mar, Other chronic pain G89.29 [facility] [address] [place] [address], [place] [phone] Mar, Asymptomatic human immunodeficiency viru s (HIV) infection status Z21 [facility] [address] [place] [address] Mar, Other chronic pain G89.29 [facility] [address] [place] [address] Mar, [facility] [address] [place] [address] Mar, [facility] [address] [place] [address] Feb, Other chronic pain G89.29 [facility] [address] [place] [address] Feb, Other chronic pain G89.29 [facility] [address] [facility] [place] [id number] Feb, Other chronic pain G89.29 [facility] [address] [place] [phone] Feb, Asymptomatic human immunodeficiency viru s (HIV) infection status Z21 and Other chronic pain G89.29 [facility] [address] [place] [address] Jan, Other chronic pain G89.29 [facility] [address] [place] [address] Jan, Other chronic pain G89.29 [facility] [address] [place] [address] Jan, Asymptomatic human immunodeficiency viru s (HIV) infection status Z21 [facility] [address] [place] [address] Jan, Other chronic pain G89.29 [facility] [address] [place] [address] Jan, [facility] [address] [place] [address] Dec, Other chronic pain G89.29 [facility] [address] [place] [address] Dec, Other chronic pain G89.29 [facility] [address] [place] [phone] Nov, Asymptomatic human immunodeficiency viru s (HIV) infection status Z21 ; Influenza vaccine needed Z23 and Other chronic pain G89.29 [facility] [address] [place] [address] 05 Nov, 2017 Other chronic pain G89.29 [facility] [address] [place] [address] Oct, [facility] [address] [place] [address] 15 Oct, 2017 Other chronic pain G89.29 [facility] [address] [place] [address] Oct, [facility] [address] [phone] Sep, Asymptomatic human immunodeficiency viru s (HIV) infection status Z21 ; Other chronic pain G89.29 and Generalized anxiety disorder F41.1 [facility] [address] [place] [address] Jun, [address] [address] Jun, [facility] [address] [place] [address] Jun, [address] [phone] Jun, Asymptomatic human immunodeficiency viru s (HIV) infection status Z21 ; Need for pneumococcal vaccine Z23 ; Major depressive disorder, recurrent, moderate F33.1 ; Loss of appetite R63.0 ; Other chronic pain G89.29 ; Other and unspecified noninfectious gastroenteritis and colitis K52.9 and Nausea R11.[address] [address] Jun, [facility] [address] [place] [address] Jun, Acute right ankle pain M25.[address] [address] May, [address] [address] May, Acute right ankle pain M25.[address] [address] Apr, [facility] [address] [place] [facility] [place] [address] Apr, [facility] [address] [place] [facility] [place] [address] Mar, Acute right ankle pain M25.571 [facility] [address] [place] [facility] [place] [address] Mar, [facility] [address] [place] [facility] [place] [facility] [address] Mar, [facility] [address] [place] [facility] [place] [facility] [address] Mar, [facility] [address] [place] [facility] [place] [address] Mar, [facility] [address] [place] [facility] [place] [facility] [address] Mar, [facility] [address] [place] [facility] [address] Mar, Nausea and vomiting, intractability of v omiting not specified, unspecified vomiting type R11.2 [facility] [address] [place] [facility] [place] [facility] [address] Mar, [facility] [address] [facility] [address] Mar, Loss of appetite R63.0 [facility] [address] [place] [facility] [place] [address] Mar, [facility] [address] [place] [address] Mar, [facility] [address] [place] [facility] [place] [facility] [address] Mar, [facility] [address] [facility] [address] Feb, Abscess L02.91 [facility] [address] [facility] [address] Feb, Acute right ankle pain M25.571 [facility] [address] [facility] [address] Feb, [facility] [address] [facility] [address] Feb, [facility] [address] [place] [address] Feb, [facility] [address] [place] [address] Feb, Acute right ankle pain M25.571 [facility] [address] [place] [address] Feb, Abscess L02.91 [facility] [address] [place] [phone] Jan, Asymptomatic human immunodeficiency viru s (HIV) infection status Z21 ; Influenza vaccine needed Z23 and Acute right ankle pain M25.571 [facility] [address] [place] [address] Jan, Abscess L02.91 [facility] [address] [place] [address] Nov, [facility] [address] [place] [address] Nov, Abscess L02.91 [facility] [address] [place] [address] Nov, Anxiety F41.9 [facility] [address] [place] [address] Nov, Acute right ankle pain M25.571 [facility] [address] [place] [address] 15 Nov, 2016 [facility] [address] [place] [address] 14 Nov, 2016 [facility] [address] [place] [address] 14 Nov, 2016 Hiccups R06.6 [facility] [address] [place] [address] 13 Nov, 2016 [facility] [address] [place] [address] 08 Nov, 2016 [facility] [address] [place] [address] Nov, [facility] [address] [place] [address] Nov, [facility] [address] [place] [facility] [place] [facility] [address] Nov, [facility] [address] [place] [facility] [address] Nov, [facility] [address] [place] [facility] [place] [facility] [address] Oct, [facility] [address] [place] [facility] [place] [facility] [address] Oct, [facility] [address] [place] [facility] [place] [address] Oct, [facility] [address] [place] [facility] [place] [facility] [address] Oct, Abscess L02.91 [facility] [address] [place] [facility] [place] [address] Oct, [facility] [address] [place] [facility] [place] [facility] [address] Oct, [facility] [address] [place] [facility] [place] [facility] [address] Oct, [facility] [address] [place] [facility] [address] Oct, Abscess L02.91 and Acute right ankle ta n M25.571 [facility] [address] [place] [facility] [place] [address] Oct, [facility] [address] [place] [address] Oct, [facility] [address] [place] [address] Oct, Abscess L02.91 [facility] [address] [place] [facility] [place] [facility] [address] Oct, [facility] [address] [place] [facility] [place] [facility] [address] Oct, [facility] [address] [place] [phone] Oct, Asymptomatic human immunodeficiency viru s (HIV) infection status Z21 ; FDC current use of opiate analgesic Z79.891 ; Nicotine dependence, cigarettes, uncomplicated F17.210 ; Iron deficiency anemia due to chronic blood loss D50.0 ; GERD with esophagitis K21.0 ; Major depressive disorder, recurrent, moderate F33.1 and Generalized anxiety disorder F41.1 [facility] [address] [place] [address] Sep, Major depressive disorder, recurrent, mo derate F33.1 [facility] [address] [place] [address] Sep, [facility] [address] [place] [address] Sep, [facility] [address] [place] [address] Sep, [facility] [address] [place] [address] Sep, [facility] [address] [place] [address] Sep, [facility] [address] [place] [address] Aug, [facility] [address] [place] [address] Aug, [facility] [address] [place] [address] Aug, [facility] [address] [place] [address] Aug, Loss of appetite R63.0 ; Major depressiv e disorder, recurrent, moderate F33.1 and Functional diarrhea K59.1 [facility] [address] [place] [address] Aug, Acute hemorrhoid K64.9 and Other osteoar thritis involving multiple joints M15.8 [facility] [address] [place] [address] Aug, Abscess L02.[address] [address] July, Chronic diarrhea K52.9 [facility] [address] [place] [address] July, [facility] [address] [place] [phone] July, Asymptomatic human immunodeficiency viru s (HIV) infection status Z21 ; Nicotine dependence, cigarettes, uncomplicated F17.210 ; Chronic diarrhea K52.9 ; Abscess L02.91 ; GERD with esophagitis K21.0 ; Anxiety F41.9 and 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 [address] Jun, Pain in joint involving multiple sites M 25.[address] [address] Jun, [address] [address] Jun, Pain in joint involving multiple sites M 25.[address] [address] Jun, Pain in joint involving multiple sites M 25.50 ; GERD with esophagitis K21.0 and Intractable hiccups R06.[address] [address] May, Pain in joint involving multiple sites M 25.[address] [address] Apr, Pain in joint involving multiple sites M 25.50 and Anxiety F41.[address] [address] Apr, [address] [address] Apr, Chronic diarrhea K52.9 and Pain in joint involving multiple sites M25.50 [facility] [address] [place] [id number] Apr, Asymptomatic human immunodeficiency viru s (HIV) infection status Z21 ; Mild intermittent asthma without complication J45.20 ; Iron deficiency anemia due to chronic blood loss D50.0 ; Screening, lipid Z13.220 ; Chronic diarrhea K52.9 ; Abscess L02.91 and Projectile vomiting with nausea R11.[address] [address] Feb, Acute hemorrhoid K64.9 [facility] [address] [place] [address] Jan, [facility] [address] [place] [address] Jan, Nausea and vomiting, intractability of v omiting not specified, unspecified vomiting type R11.2 and Acute right ankle pain M25.571 [facility] [address] [place] [address] Jan, [facility] [address] [place] [address] 09 Jan, 2016 Asymptomatic human immunodeficiency viru s (HIV) infection status Z21 ; Iron deficiency anemia due to chronic blood loss D50.0 and Generalized abdominal pain R10.84 [facility] [address] [place] [phone] Dec, Asymptomatic human immunodeficiency viru s (HIV) infection status Z21 ; Mild intermittent asthma without complication J45.20 ; Influenza vaccine needed Z23 and Nicotine dependence, cigarettes, uncomplicated F17.210 [facility] [address] [id number] 9 Oct, 2013 [facility] [address] [id number] [id number] 8 Oct, 2013 [facility] [address] [place] [address] 08 May, 2012 [facility] [address] [place] [address] Feb, [facility] [address] [place] [address] Nov, [facility] [address] [place] [address] Aug, [facility] [address] [place] [address] Apr, [facility] [address] [phone] 8 Jan, 2011 IMMUNIZATIONS No Known Immunizations SOCIAL HISTORY Never Assessed REASON FOR VISIT script request PLAN OF CARE VITAL SIGNS MEDICATIONS Medication Instructions Dosage Frequency Start Date End Date Duration S aby Elam 7.5-325 MG Orally every 6 hrs 1 tablet as needed 6h Apr, 7 days Active RESULTS No Results PROCEDURES No Known procedures INSTRUCTIONS MEDICATIONS ADMINISTERED No Known Medications MEDICAL (GENERAL) HISTORY Type Description Date Medical History HIV Medical History Colitis Medical History chronic pain Medical History depression Surgical History No know Surgical history
--- OUTSIDE RECORDS SUMMARY | 2019-07-04 11:57 | XMS REPORT ---
Author Author ARTEMIO Li Organization [facility] Address [address] [place], [place] [id number] Care Team Providers Care Chair Name Role Phone Shana Li Unavailable PROBLEMS Type Condition ICD9-CM Code LXP83-ME Code Onset Dates Condition S tatus SNOMED Code Problem Mild intermittent asthma without complication J45. 20 Active 596041549 Problem Iron deficiency anemia due to chronic blood loss D 50.0 Active 76220024 Problem Other osteoarthritis involving multiple joints M15 .8 Active 280231703 Problem Asymptomatic human immunodeficiency virus (HIV) infect ion status Z21 Active 47381784 Problem Other and unspecified noninfectious gastroenteritis an d colitis K52.9 Active 60567954 Problem Nicotine dependence, cigarettes, uncomplicated F17 .210 Active 70612045 Problem Other chronic pain G89.29 Active 8 7545588 Problem Generalized anxiety disorder F41.1 A ctive 88545046 Problem GERD with esophagitis K21.0 Active 662750015 Problem Functional diarrhea K59.1 Active 94921979 Problem Major depressive disorder, recurrent, moderate F33 .1 Active 815784848 Problem Loss of appetite R63.0 Active 798 49287 ALLERGIES No Information ENCOUNTERS Encounter Location Date Diagnosis [address] [address] Mar, Other chronic pain G89.[address] [address] Mar, Other chronic pain G89.[address] [address] Feb, Loss of appetite R63.0 [facility] [address] [place] [address] Feb, Other chronic pain G89.[address] [address] Feb, Other chronic pain G89.29 [facility] [address] [place] [address] Feb, Other chronic pain G89.29 [facility] [address] [place] [address] Jan, Other chronic pain G89.29 [facility] [address] [place], [place] [id number] Jan, Asymptomatic human immunodeficiency viru s (HIV) infection status Z21 ; GERD with esophagitis K21.0 ; Influenza vaccine needed Z23 and Other chronic pain G89.29 [facility] [address] [place] [address] Dec, Other chronic pain G89.29 [facility] [address] [place] [address] Dec, Other chronic pain G89.29 [facility] [address] [place] [address] Dec, Other chronic pain G89.29 [facility] [address] [place] [address] Dec, Other chronic pain G89.29 [facility] [address] [place] [address] Nov, Other chronic pain G89.29 [facility] [address] [place] [address] Nov, Other chronic pain G89.29 [facility] [address] [place] [address] Oct, Other chronic pain G89.29 [facility] [address] [place] [address] Oct, Other chronic pain G89.29 [facility] [address] [place] [address] Oct, Other chronic pain G89.29 [facility] [address] [place] [address] Oct, Other chronic pain G89.29 [facility] [address] [place] [address] Sep, Other chronic pain G89.29 [facility] [address] [place] [address] Sep, Other chronic pain G89.29 [facility] [address] [place], [place] [id number] Sep, Asymptomatic human immunodeficiency viru s (HIV) infection status Z21 and GERD with esophagitis K21.0 [facility] [address] [facility] [place] [address] Sep, [facility] [address] [facility] [place] [address] Sep, Loss of appetite R63.0 and Other chronic pain G89.29 [facility] [address] [facility] [place] [address] Sep, Other chronic pain G89.29 [facility] [address] [facility] [place] [address] Aug, Other chronic pain G89.29 [facility] [address] [facility] [place] [address] Aug, Other chronic pain G89.29 [facility] [address] [place] [address] July, Other chronic pain G89.29 [facility] [address] [facility] [place] [address] July, [facility] [address] [place] [address] July, [facility] [address] [place] [address] July, Other chronic pain G89.29 [facility] [address] [facility] [place] [address] July, [facility] [address] [facility] [place] [address] July, Other chronic pain G89.29 [facility] [address] [facility] [place] [address] Jun, [facility] [address] [facility] [place] [address] Jun, Other chronic pain G89.29 [facility] [address] [facility] [place] [address] Jun, [facility] [address] [facility] [place] [address] Jun, Other chronic pain G89.29 [facility] [address] [facility] [place] [address] May, Other chronic pain G89.29 [facility] [address] [facility] [place] [address] May, [facility] [address] [facility] [place] [address] May, [facility] [address] [facility] [place] [address] May, [facility] [address] [facility] [place] [address] May, [facility] [address] [facility] [place] [address] May, [facility] [address] [facility] [place] [address] Apr, [facility] [address] [facility] [place] [address] Apr, [facility] [address] [facility] [place] [address] Apr, [facility] [address] [facility] [place] [address] Apr, [facility] [address] [facility] [place] [address] Apr, [facility] [address] [facility] [place] [address] Apr, [facility] [address] [facility] [place] [address] Apr, [facility] [address] [facility] [place] [address] Apr, [facility] [address] [facility] [place] [address] Apr, [facility] [address] [facility] [place] [address] 20 Apr, 2018 Other chronic pain G89.29 [facility] [address] [place] [address] Apr, [facility] [address] [place] [phone] 15 Apr, 2018 Asymptomatic human immunodeficiency viru s (HIV) infection status Z21 ; Other chronic pain G89.29 and Screening for cardiovascular condition Z13.6 [facility] [address] [place] [address] 14 Apr, 2018 [facility] [address] [place] [address] Apr, [facility] [address] [place] [address] Apr, [facility] [address] [place] [address] Apr, Other chronic pain G89.29 [facility] [address] [place] [address] Mar, Loss of appetite R63.0 [facility] [address] [place] [address] Mar, [facility] [address] [place] [address] Mar, [facility] [address] [place] [address] Mar, [facility] [address] [place] [address] Mar, [facility] [address] [place] [address] Mar, Other chronic pain G89.29 [facility] [address] [place] [address] Mar, [facility] [address] [place] [address] Mar, [facility] [address] [place] [address] Mar, [facility] [address] [place] [address] Mar, Other chronic pain G89.29 [facility] [address] [facility] [id number] Mar, Asymptomatic human immunodeficiency viru s (HIV) infection status Z21 [facility] [address] [place] [address] Mar, Other chronic pain G89.29 [facility] [address] [place] [address] Mar, [facility] [address] [place] [address] Mar, [facility] [address] [place] [address] Feb, Other chronic pain G89.29 [facility] [address] [place] [address] Feb, Other chronic pain G89.29 [facility] [address] [facility] [id number] Feb, Other chronic pain G89.29 [facility] [address] [place] [id number] Feb, Asymptomatic human immunodeficiency viru s (HIV) infection status Z21 and Other chronic pain G89.29 [facility] [address] [place] [address] Jan, Other chronic pain G89.29 [facility] [address] [place] [address] Jan, Other chronic pain G89.29 [facility] [address] [place] [address] Jan, Asymptomatic human immunodeficiency viru s (HIV) infection status Z21 [facility] [address] [place] [address] Jan, Other chronic pain G89.29 [facility] [address] [place] [address] Jan, [facility] [address] [place] [address] Dec, Other chronic pain G89.29 [facility] [address] [place] [address] Dec, Other chronic pain G89.29 [facility] [address] [place] [id number] Nov, Asymptomatic human immunodeficiency viru s (HIV) infection status Z21 ; Influenza vaccine needed Z23 and Other chronic pain G89.29 [facility] [address] [place] [address] 05 Nov, 2017 Other chronic pain G89.29 [facility] [address] [place] [address] Oct, [facility] [address] [place] [address] Oct, Other chronic pain G89.[address] [address] Oct, [facility] [address] [place] [id number] Sep, Asymptomatic human immunodeficiency viru s (HIV) infection status Z21 ; Other chronic pain G89.29 and Generalized anxiety disorder F41.[address] [address] Jun, [address] [address] Jun, [address] [address] Jun, [address] [id number] Jun, Asymptomatic human immunodeficiency viru s (HIV) infection status Z21 ; Need for pneumococcal vaccine Z23 ; Major depressive disorder, recurrent, moderate F33.1 ; Loss of appetite R63.0 ; Other chronic pain G89.29 ; Other and unspecified noninfectious gastroenteritis and colitis K52.9 and Nausea R11.[address] [address] Jun, [address] [address] Jun, Acute right ankle pain M25.[address] [address] May, [facility] [address] [facility] [place] [address] May, Acute right ankle pain M25.571 [facility] [address] [facility] [place] [address] Apr, [facility] [address] [facility] [place] [address] Apr, [facility] [address] [place] [address] Mar, Acute right ankle pain M25.571 [facility] [address] [place] [address] Mar, [facility] [address] [place] [address] Mar, [facility] [address] [place] [address] Mar, [facility] [address] [place] [address] Mar, [facility] [address] [place] [address] Mar, [facility] [address] [place] [address] Mar, Nausea and vomiting, intractability of v omiting not specified, unspecified vomiting type R11.2 [facility] [address] [place] [address] Mar, [facility] [address] [place] [address] Mar, Loss of appetite R63.0 [facility] [address] [place] [address] Mar, [facility] [address] [place] [address] Mar, [facility] [address] [place] [address] Mar, [facility] [address] [place] [address] Feb, Abscess L02.91 [facility] [address] [place] [address] Feb, Acute right ankle pain M25.571 [facility] [address] [place] [address] Feb, [facility] [address] [place] [address] Feb, [facility] [address] [place] [address] Feb, [facility] [address] [place] [address] Feb, Acute right ankle pain M25.571 [facility] [address] [place] [address] Feb, Abscess L02.91 [facility] [address] [place] [id number] Jan, Asymptomatic human immunodeficiency viru s (HIV) infection status Z21 ; Influenza vaccine needed Z23 and Acute right ankle pain M25.571 [facility] [address] [place] [address] Jan, Abscess L02.91 [facility] [address] [place] [address] Nov, [facility] [address] [place] [address] Nov, Abscess L02.91 [facility] [address] [place] [address] Nov, Anxiety F41.9 [facility] [address] [place] [address] Nov, Acute right ankle pain M25.571 [facility] [address] [place] [address] Nov, [facility] [address] [place] [address] Nov, [facility] [address] [place] [address] Nov, Hiccups R06.6 [facility] [address] [place] [address] Nov, [facility] [address] [facility] [place] [address] Nov, [facility] [address] [facility] [place] [address] Nov, [facility] [address] [facility] [place] [address] Nov, [facility] [address] [facility] [place] [address] Nov, [facility] [address] [facility] [place] [address] Nov, [facility] [address] [facility] [place] [address] Oct, [facility] [address] [facility] [place] [address] Oct, [facility] [address] [facility] [place] [address] Oct, [facility] [address] [facility] [place] [address] Oct, Abscess L02.91 [facility] [address] [facility] [place] [address] Oct, [facility] [address] [facility] [place] [address] Oct, [facility] [address] [facility] [place] [address] Oct, [facility] [address] [facility] [place] [address] Oct, Abscess L02.91 and Acute right ankle ta n M25.571 [facility] [address] [facility] [place] [address] Oct, [facility] [address] [facility] [place] [address] Oct, [facility] [address] [facility] [place] [address] Oct, Abscess L02.91 [facility] [address] [facility] [place] [address] Oct, [facility] [address] [place] [address] Oct, [facility] [address] [place] [phone] Oct, Asymptomatic human immunodeficiency viru s (HIV) infection status Z21 ; 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 ; Nicotine dependence, cigarettes, uncomplicated F17.210 ; Iron deficiency anemia due to chronic blood loss D50.0 ; GERD with esophagitis K21.0 ; Major depressive disorder, recurrent, moderate F33.1 and Generalized anxiety disorder F41.[address] [address] Sep, Major depressive disorder, recurrent, mo derate F33.1 [facility] [address] [address] Sep, [facility] [address] [address] Sep, [facility] [address] [address] Sep, [facility] [address] [address] Sep, [facility] [address] [address] Sep, [facility] [address] [address] Aug, [facility] [address] [address] Aug, [facility] [address] [address] Aug, [address] [address] Aug, Loss of appetite R63.0 ; Major depressiv e disorder, recurrent, moderate F33.1 and Functional diarrhea K59.[address] [address] Aug, Acute hemorrhoid K64.9 and Other osteoar thritis involving multiple joints M15.[address] [address] Aug, Abscess L02.91 [facility] [address] [place] [address] July, Chronic diarrhea K52.[address] [address] July, [facility] [address] [id number] July, Asymptomatic human immunodeficiency viru s (HIV) infection status Z21 ; Nicotine dependence, cigarettes, uncomplicated F17.210 ; Chronic diarrhea K52.9 ; Abscess L02.91 ; GERD with esophagitis K21.0 ; Anxiety F41.9 and 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 [address] Jun, Pain in joint involving multiple sites M 25.[address] [address] Jun, [address] [address] Jun, Pain in joint involving multiple sites M 25.[address] [address] Jun, Pain in joint involving multiple sites M 25.50 ; GERD with esophagitis K21.0 and Intractable hiccups R06.[address] [address] May, Pain in joint involving multiple sites M 25.[address] [address] Apr, Pain in joint involving multiple sites M 25.50 and Anxiety F41.[address] [address] Apr, [address] [address] Apr, Chronic diarrhea K52.9 and Pain in joint involving multiple sites M25.[address] [id number] Apr, Asymptomatic human immunodeficiency viru s (HIV) infection status Z21 ; Mild intermittent asthma without complication J45.20 ; Iron deficiency anemia due to chronic blood loss D50.0 ; Screening, lipid Z13.220 ; Chronic diarrhea K52.9 ; Abscess L02.91 and Projectile vomiting with nausea R11.12 [facility] [address] [place] [address] Feb, Acute hemorrhoid K64.[address] [address] Jan, [address] [address] Jan, Nausea and vomiting, intractability of v omiting not specified, unspecified vomiting type R11.2 and Acute right ankle pain M25.[address] [address] Jan, [address] [address] Jan, Asymptomatic human immunodeficiency viru s (HIV) infection status Z21 ; Iron deficiency anemia due to chronic blood loss D50.0 and Generalized abdominal pain R10.84 [facility] [address] [place] [id number] Dec, Asymptomatic human immunodeficiency viru s (HIV) infection status Z21 ; Mild intermittent asthma without complication J45.20 ; Influenza vaccine needed Z23 and Nicotine dependence, cigarettes, uncomplicated F17.210 [facility] [address] [place] [id number] Oct, [facility] [address] [place] [phone] 8 Oct, 2013 [facility] [address] [place] [address] 08 May, 2012 [facility] [address] [place] [address] 14 Feb, 2012 [facility] [address] [place] [address] 14 Nov, 2011 [facility] [address] [place] [address] Aug, [address] [address] Apr, [facility] [address] [facility] [address] [place] [phone] 1 Jan, IMMUNIZATIONS No Known Immunizations SOCIAL [...]
--- OUTSIDE RECORDS SUMMARY | 2019-07-04 11:58 | XMS REPORT ---
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 20 Active 257870153 Problem Iron deficiency anemia due to chronic blood loss D 50.0 Active 63847487 Problem Other osteoarthritis involving multiple joints M15 .8 Active 674978975 Problem Asymptomatic human immunodeficiency virus (HIV) infect ion status Z21 Active 53478976 Problem Other and unspecified noninfectious gastroenteritis an d colitis K52.9 Active 45970490 Problem Nicotine dependence, cigarettes, uncomplicated F17 .210 Active 09849202 Problem Other chronic pain G89.29 Active 8 0458898 Problem Generalized anxiety disorder F41.1 A ctive 67223082 Problem GERD with esophagitis K21.0 Active 881423341 Problem Functional diarrhea K59.1 Active 00003352 Problem Major depressive disorder, recurrent, moderate F33 .1 Active 970461198 Problem Loss of appetite R63.0 Active 798 57017 ALLERGIES No Information ENCOUNTERS Encounter Location Date Diagnosis [facility] [address] [place] [address] Feb, Other chronic pain G89.29 [facility] [address] [place] [address] Feb, Other chronic pain G89.[address] [address] Jan, Other chronic pain G89.29 [facility] [address] [place] [phone] Jan, Asymptomatic human immunodeficiency viru s (HIV) infection status Z21 ; GERD with esophagitis K21.0 ; Influenza vaccine needed Z23 and Other chronic pain G89.29 [facility] [address] [place] [address] Dec, Other chronic pain G89.29 [facility] [address] [facility] [place] [address] Dec, Other chronic pain G89.29 [facility] [address] [place] [address] Dec, Other chronic pain G89.29 [facility] [address] [place] [address] Dec, Other chronic pain G89.29 [facility] [address] [place] [address] Nov, Other chronic pain G89.29 [facility] [address] [place] [address] Nov, Other chronic pain G89.29 [facility] [address] [place] [address] Oct, Other chronic pain G89.29 [facility] [address] [place] [address] Oct, Other chronic pain G89.29 [facility] [address] [place] [address] Oct, Other chronic pain G89.29 [facility] [address] [place] [address] Oct, Other chronic pain G89.29 [facility] [address] [place] [address] Sep, Other chronic pain G89.29 [facility] [address] [place] [address] Sep, Other chronic pain G89.29 [facility] [address] [place] [id number] Sep, Asymptomatic human immunodeficiency viru s (HIV) infection status Z21 and GERD with esophagitis K21.0 [facility] [address] [place] [address] Sep, [facility] [address] [place] [address] Sep, Loss of appetite R63.0 and Other chronic pain G89.29 [facility] [address] [facility] [place] [address] Sep, Other chronic pain G89.29 [facility] [address] [facility] [place] [address] Aug, Other chronic pain G89.29 [facility] [address] [facility] [place] [address] Aug, Other chronic pain G89.29 [facility] [address] [facility] [place] [address] July, Other chronic pain G89.29 [facility] [address] [facility] [place] [address] July, [facility] [address] [facility] [place] [address] July, [facility] [address] [facility] [place] [address] July, Other chronic pain G89.29 [facility] [address] [facility] [place] [address] July, [facility] [address] [facility] [place] [address] July, Other chronic pain G89.29 [facility] [address] [facility] [place] [address] Jun, [facility] [address] [facility] [place] [address] Jun, Other chronic pain G89.29 [facility] [address] [facility] [place] [address] Jun, [facility] [address] [facility] [place] [address] Jun, Other chronic pain G89.29 [facility] [address] [facility] [place] [address] May, Other chronic pain G89.29 [facility] [address] [facility] [place] [address] May, [facility] [address] [facility] [place] [address] May, [facility] [address] [facility] [place] [address] May, [facility] [address] [facility] [place] [address] May, [facility] [address] [facility] [place] [address] May, [facility] [address] [facility] [place] [address] Apr, [facility] [address] [facility] [place] [address] Apr, [facility] [address] [facility] [place] [address] Apr, [facility] [address] [place] [address] Apr, [facility] [address] [place] [address] Apr, [facility] [address] [place] [address] Apr, [facility] [address] [place] [address] Apr, [facility] [address] [facility] [place] [address] Apr, [facility] [address] [facility] [place] [address] Apr, [facility] [address] [place] [address] Apr, Other chronic pain G89.29 [facility] [address] [place] [address] Apr, [facility] [address] [place] [phone] Apr, 2018 Asymptomatic human immunodeficiency viru s (HIV) infection status Z21 ; Other chronic pain G89.29 and Screening for cardiovascular condition Z13.6 [facility] [address] [place] [address] Apr, [facility] [address] [facility] [place] [address] Apr, [facility] [address] [facility] [place] [address] Apr, [facility] [address] [facility] [place] [address] Apr, Other chronic pain G89.29 [facility] [address] [facility] [place] [address] Mar, Loss of appetite R63.0 [facility] [address] [facility] [place] [address] Mar, [facility] [address] [facility] [place] [address] Mar, [facility] [address] [facility] [place] [address] Mar, [facility] [address] [place] [address] Mar, [facility] [address] [place] [address] Mar, Other chronic pain G89.29 [facility] [address] [place] [address] Mar, [facility] [address] [place] [address] Mar, [facility] [address] [place] [address] Mar, [facility] [address] [place] [address] Mar, Other chronic pain G89.29 [facility] [address] [facility] [id number] Mar, Asymptomatic human immunodeficiency viru s (HIV) infection status Z21 [facility] [address] [place] [address] Mar, Other chronic pain G89.29 [facility] [address] [place] [address] Mar, [facility] [address] [place] [address] Mar, [facility] [address] [place] [address] Feb, Other chronic pain G89.29 [facility] [address] [place] [address] Feb, Other chronic pain G89.29 [facility] [address] [facility] [place] [id number] Feb, Other chronic pain G89.29 [facility] [address] [place] [id number] Feb, Asymptomatic human immunodeficiency viru s (HIV) infection status Z21 and Other chronic pain G89.29 [facility] [address] [place] [address] Jan, Other chronic pain G89.29 [facility] [address] [place] [address] Jan, Other chronic pain G89.29 [facility] [address] [place] [address] Jan, Asymptomatic human immunodeficiency viru s (HIV) infection status Z21 [facility] [address] [place] [address] Jan, Other chronic pain G89.29 [facility] [address] [place] [address] Jan, [facility] [address] [place] [address] Dec, Other chronic pain G89.29 [facility] [address] [place] [address] Dec, Other chronic pain G89.29 [facility] [address] [place] [phone] Nov, Asymptomatic human immunodeficiency viru s (HIV) infection status Z21 ; Influenza vaccine needed Z23 and Other chronic pain G89.29 [facility] [address] [place] [address] Nov, Other chronic pain G89.29 [facility] [address] [place] [address] Oct, [facility] [address] [place] [address] Oct, Other chronic pain G89.29 [facility] [address] [place] [address] Oct, [facility] [address] [place] [phone] Sep, Asymptomatic human immunodeficiency viru s (HIV) infection status Z21 ; Other chronic pain G89.29 and Generalized anxiety disorder F41.1 [facility] [address] [place] [address] Jun, [facility] [address] [place] [address] Jun, [facility] [address] [place] [address] Jun, [facility] [address] [place] [phone] Jun, Asymptomatic human immunodeficiency viru s (HIV) infection status Z21 ; Need for pneumococcal vaccine Z23 ; Major depressive disorder, recurrent, moderate F33.1 ; Loss of appetite R63.0 ; Other chronic pain G89.29 ; Other and unspecified noninfectious gastroenteritis and colitis K52.9 and Nausea R11.0 [facility] [address] [place] [address] Jun, [facility] [address] [place] [address] Jun, Acute right ankle pain M25.[address] [address] May, [facility] [address] [place] [address] May, Acute right ankle pain M25.571 [facility] [address] [place] [address] Apr, [facility] [address] [place] [address] Apr, [facility] [address] [place] [address] Mar, Acute right ankle pain M25.571 [facility] [address] [facility] [place] [address] Mar, [facility] [address] [facility] [place] [address] Mar, [facility] [address] [facility] [place] [address] Mar, [facility] [address] [facility] [place] [address] Mar, [facility] [address] [facility] [place] [address] Mar, [facility] [address] [facility] [place] [address] Mar, Nausea and vomiting, intractability of v omiting not specified, unspecified vomiting type R11.2 [facility] [address] [facility] [place] [address] Mar, [facility] [address] [place] [address] Mar, Loss of appetite R63.0 [facility] [address] [place] [address] Mar, [facility] [address] [facility] [place] [address] Mar, [facility] [address] [facility] [place] [address] Mar, [facility] [address] [place] [address] Feb, Abscess L02.91 [facility] [address] [place] [address] Feb, Acute right ankle pain M25.571 [facility] [address] [place] [address] Feb, [facility] [address] [place] [address] Feb, [facility] [address] [place] [address] Feb, [facility] [address] [place] [address] Feb, Acute right ankle pain M25.571 [facility] [address] [place] [address] Feb, Abscess L02.91 [facility] [address] [place] [phone] Jan, Asymptomatic human immunodeficiency viru s (HIV) infection status Z21 ; Influenza vaccine needed Z23 and Acute right ankle pain M25.571 [facility] [address] [facility] [place] [address] Jan, Abscess L02.91 [facility] [address] [place] [address] Nov, [facility] [address] [place] [address] Nov, Abscess L02.91 [facility] [address] [place] [address] Nov, Anxiety F41.9 [facility] [address] [place] [address] Nov, Acute right ankle pain M25.571 [facility] [address] [place] [address] Nov, [facility] [address] [place] [address] Nov, [facility] [address] [place] [address] Nov, Hiccups R06.6 [facility] [address] [place] [address] Nov, [facility] [address] [place] [address] Nov, [facility] [address] [place] [address] Nov, [facility] [address] [place] [address] Nov, [facility] [address] [place] [address] Nov, [facility] [address] [place] [address] Nov, [facility] [address] [facility] [place] [address] Oct, [facility] [address] [facility] [place] [address] Oct, [facility] [address] [facility] [place] [address] Oct, [facility] [address] [facility] [place] [address] Oct, Abscess L02.91 [facility] [address] [facility] [place] [address] Oct, [facility] [address] [facility] [place] [address] Oct, [facility] [address] [facility] [place] [address] Oct, [facility] [address] [facility] [place] [address] Oct, Abscess L02.91 and Acute right ankle ta n M25.571 [facility] [address] [facility] [place] [address] Oct, [facility] [address] [facility] [place] [address] Oct, [facility] [address] [facility] [place] [address] Oct, Abscess L02.91 [facility] [address] [place] [address] Oct, [facility] [address] [facility] [place] [address] Oct, [facility] [address] [place] [phone] Oct, Asymptomatic human immunodeficiency viru s (HIV) infection status Z21 ; 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 ; Nicotine dependence, cigarettes, uncomplicated F17.210 ; Iron deficiency anemia due to chronic blood loss D50.0 ; GERD with esophagitis K21.0 ; Major depressive disorder, recurrent, moderate F33.1 and Generalized anxiety disorder F41.1 [facility] [address] [facility] [place] [address] Sep, Major depressive disorder, recurrent, mo derate F33.1 [facility] [address] [place] [address] Sep, [facility] [address] [place] [address] Sep, [facility] [address] [place] [address] Sep, [facility] [address] [place] [address] Sep, [facility] [address] [place] [address] Sep, [facility] [address] [place] [address] Aug, [facility] [address] [place] [address] Aug, [address] [address] Aug, [facility] [address] [place] [address] Aug, Loss of appetite R63.0 ; Major depressiv e disorder, recurrent, moderate F33.1 and Functional diarrhea K59.[address] [address] Aug, Acute hemorrhoid K64.9 and Other osteoar thritis involving multiple joints M15.[address] [address] Aug, Abscess L02.[address] [address] July, Chronic diarrhea K52.[address] [address] July, [facility] [address] [place] [phone] July, Asymptomatic human immunodeficiency viru s (HIV) infection status Z21 ; Nicotine dependence, cigarettes, uncomplicated F17.210 ; Chronic diarrhea K52.9 ; Abscess L02.91 ; GERD with esophagitis K21.0 ; Anxiety F41.9 and 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 [address] Jun, Pain in joint involving multiple sites M 25.[address] [address] Jun, [address] [address] Jun, Pain in joint involving multiple sites M 25.[address] [address] Jun, Pain in joint involving multiple sites M 25.50 ; GERD with esophagitis K21.0 and Intractable hiccups R06.[address] [address] May, Pain in joint involving multiple sites M 25.[address] [address] Apr, Pain in joint involving multiple sites M 25.50 and Anxiety F41.[address] [address] Apr, [address] [address] Apr, Chronic diarrhea K52.9 and Pain in joint involving multiple sites M25.50 [facility] [address] [place] [id number] Apr, 2016 Asymptomatic human immunodeficiency viru s (HIV) infection status Z21 ; Mild intermittent asthma without complication J45.20 ; Iron deficiency anemia due to chronic blood loss D50.0 ; Screening, lipid Z13.220 ; Chronic diarrhea K52.9 ; Abscess L02.91 and Projectile vomiting with nausea R11.[address] [address] Feb, Acute hemorrhoid K64.[address] [address] Jan, [address] [address] Jan, Nausea and vomiting, intractability of v omiting not specified, unspecified vomiting type R11.2 and Acute right ankle pain M25.571 [facility] [address] [place] [address] Jan, [facility] [address] [place] [address] 09 Jan, 2016 Asymptomatic human immunodeficiency viru s (HIV) infection status Z21 ; Iron deficiency anemia due to chronic blood loss D50.0 and Generalized abdominal pain R10.84 [facility] [address] [place], [place] [id number] Dec, Asymptomatic human immunodeficiency viru s (HIV) infection status Z21 ; Mild intermittent asthma without complication J45.20 ; Influenza vaccine needed Z23 and Nicotine dependence, cigarettes, uncomplicated F17.210 [facility] [address] [id number] 9 Oct, 2013 [facility] [address] [id number] 2 8 Oct, 2013 [facility] [address] [place] [address] 08 May, 2012 [facility] [address] [place] [address] Feb, [facility] [address] [place] [address] Nov, [facility] [address] [place] [address] Aug, [facility] [address] [place] [address] Apr, [facility] [address] [id number] Jan, IMMUNIZATIONS No Known Immunizations SOCIAL HISTORY Never Assessed REASON FOR VISIT script request PLAN OF CARE VITAL SIGNS MEDICATIONS Medication Instructions Dosage Frequency Start Date End Date Duration S tatus Percocet 7.5-325 MG Orally every 6 hrs 1 tablet as needed 6h 11 Apr, 2016 7 days Active RESULTS No Results PROCEDURES No Known procedures INSTRUCTIONS MEDICATIONS ADMINISTERED No Known Medications MEDICAL (GENERAL) HISTORY Type Description Date Medical History HIV Medical History Colitis Medical History chronic pain Medical History depression Surgical History No know Surgical history
--- OUTSIDE RECORDS SUMMARY | 2019-07-04 11:58 | XMS REPORT ---
Author Author ARTEMIO Li Organization [facility] Address [address], [place] [id number] Care Team Providers Care Resource Paraprofessional Name Role Phone Shana Li Unavailable PROBLEMS Type Condition ICD9-CM Code ETZ99-ER Code Onset Dates Condition S tatus SNOMED Code Problem Mild intermittent asthma without complication J45. 20 Active 690883532 Problem Iron deficiency anemia due to chronic blood loss D 50.0 Active 46026285 Problem Other osteoarthritis involving multiple joints M15 .8 Active 332565518 Problem Asymptomatic human immunodeficiency virus (HIV) infect ion status Z21 Active 99075686 Problem Other and unspecified noninfectious gastroenteritis an d colitis K52.9 Active 63168204 Problem Nicotine dependence, cigarettes, uncomplicated F17 .210 Active 39783186 Problem Other chronic pain G89.29 Active 8 3073595 Problem Generalized anxiety disorder F41.1 A ctive 28410923 Problem GERD with esophagitis K21.0 Active 863745094 Problem Functional diarrhea K59.1 Active 53049762 Problem Major depressive disorder, recurrent, moderate F33 .1 Active 896009007 Problem Loss of appetite R63.0 Active 798 31498 ALLERGIES No Information ENCOUNTERS Encounter Location Date Diagnosis [facility] [address] [place] [address] Feb, Other chronic pain G89.[address] [facility] [address] [place] [address] Jan, Other chronic pain G89.29 [facility] [address] [place] [id number] Jan, Asymptomatic human immunodeficiency viru s (HIV) infection status Z21 ; GERD with esophagitis K21.0 ; Influenza vaccine needed Z23 and Other chronic pain G89.[address] [facility] [address] [place] [address] Dec, Other chronic pain G89.[address] [facility] [address] [place] [address] Dec, Other chronic pain G89.[address] [facility] [address] [place] [address] Dec, Other chronic pain G89.[address] [facility] [address] [place] [address] Dec, Other chronic pain G89.[address] [facility] [address] [place] [address] Nov, Other chronic pain G89.[address] [facility] [address] [place] [address] Nov, Other chronic pain G89.[address] [facility] [address] [place] [address] Oct, Other chronic pain G89.[address] [facility] [address] [place] [address] Oct, Other chronic pain G89.[address] [facility] [address] [place] [address] Oct, Other chronic pain G89.[address] [facility] [address] [place] [address] Oct, Other chronic pain G89.[address] [facility] [address] [place] [address] Sep, Other chronic pain G89.[address] [facility] [address] [place] [address] Sep, Other chronic pain G89.29 [facility] [address] [place], [place] [id number] Sep, Asymptomatic human immunodeficiency viru s (HIV) infection status Z21 and GERD with esophagitis K21.[address] [facility] [address] [place] [address] Sep, [facility] [address] [place] [address] Sep, Loss of appetite R63.0 and Other chronic pain G89.[address] [facility] [address] [facility] [place] [address] Sep, Other chronic pain G89.29 [facility] [address] [place] [facility] [place] [address] Aug, Other chronic pain G89.29 [facility] [address] [place] [facility] [place] [address] Aug, Other chronic pain G89.29 [facility] [address] [place] [facility] [place] [facility] [place] [address] July, Other chronic pain G89.29 [facility] [address] [place] [facility] [place] [facility] [place] [address] July, [facility] [address] [place] [facility] [place] [facility] [place] [address] July, [facility] [address] [place] [facility] [place] [address] July, Other chronic pain G89.29 [facility] [address] [place] [facility] [place] [address] July, [facility] [address] [place] [facility] [place] [facility] [place] [address] July, Other chronic pain G89.29 [facility] [address] [place] [facility] [place] [address] Jun, [facility] [address] [place] [facility] [place] [address] Jun, Other chronic pain G89.29 [facility] [address] [place] [facility] [place] [facility] [place] [address] Jun, [facility] [address] [place] [facility] [place] [address] Jun, Other chronic pain G89.29 [facility] [address] [place] [facility] [place] [facility] [place] [address] May, Other chronic pain G89.29 [facility] [address] [place] [facility] [place] [facility] [place] [address] May, [facility] [address] [place] [facility] [place] [facility] [place] [address] May, [facility] [address] [place] [facility] [place] [facility] [place] [address] May, [facility] [address] [place] [facility] [place] [facility] [place] [address] May, [facility] [address] [place] [facility] [place] [facility] [place] [address] May, [facility] [address] [place] [facility] [place] [facility] [place] [address] Apr, [facility] [address] [place] [facility] [place] [address] Apr, [facility] [address] [facility] [place] [address] Apr, [facility] [address] [facility] [place] [facility] [place] [address] Apr, [facility] [address] [place] [facility] [place] [facility] [place] [address] Apr, [facility] [address] [place] [facility] [place] [facility] [place] [address] Apr, [facility] [address] [place] [facility] [place] [facility] [place] [address] Apr, [facility] [address] [place] [facility] [place] [facility] [place] [address] Apr, [facility] [address] [facility] [place] [address] Apr, [facility] [address] [facility] [place] [address] Apr, Other chronic pain G89.29 [facility] [address] [facility] [place] [address] Apr, [facility] [address] [place] [id number] 15 Apr, 2018 Asymptomatic human immunodeficiency viru s (HIV) infection status Z21 ; Other chronic pain G89.29 and Screening for cardiovascular condition Z13.6 [facility] [address] [place] [facility] [place] [facility] [place] [address] Apr, [facility] [address] [facility] [place] [address] Apr, [facility] [address] [place] [facility] [place] [facility] [place] [address] Apr, [facility] [address] [place] [facility] [place] [address] Apr, Other chronic pain G89.29 [facility] [address] [place] [facility] [place] [address] Mar, Loss of appetite R63.0 [facility] [address] [place] [facility] [place] [facility] [place] [address] Mar, [facility] [address] [place] [facility] [place] [facility] [place] [address] Mar, [facility] [address] [place] [facility] [place] [address] Mar, [facility] [address] [place] [facility] [place] [address] Mar, [facility] [address] [facility] [place] [address] Mar, Other chronic pain G89.29 [facility] [address] [place] [facility] [place] [facility] [place] [address] Mar, [facility] [address] [facility] [place] [address] Mar, [facility] [address] [facility] [place] [address] Mar, [facility] [address] [facility] [place] [address] Mar, Other chronic pain G89.29 [facility] [address] [facility] [id number] Mar, Asymptomatic human immunodeficiency viru s (HIV) infection status Z21 [facility] [address] [place] [address] Mar, Other chronic pain G89.29 [facility] [address] [facility] [place] [address] Mar, [facility] [address] [facility] [place] [address] Mar, [facility] [address] [facility] [place] [address] Feb, Other chronic pain G89.[address] [facility] [address] [place] [address] Feb, Other chronic pain G89.29 [facility] [address] [place] [address] S [id number] Feb, Other chronic pain G89.29 [facility] [address] [place] [id number] Feb, Asymptomatic human immunodeficiency viru s (HIV) infection status Z21 and Other chronic pain G89.[address] [facility] [address] [place] [address] Jan, Other chronic pain G89.[address] [facility] [address] [place] [address] Jan, Other chronic pain G89.[address] [facility] [address] [place] [address] Jan, Asymptomatic human immunodeficiency viru s (HIV) infection status Z21 [facility] [address] [place] [address] Jan, Other chronic pain G89.[address] [facility] [address] [place] [address] Jan, [facility] [address] [place] [address] Dec, Other chronic pain G89.[address] [facility] [address] [place] [address] Dec, Other chronic pain G89.29 [facility] [address] [place], [place] [id number] Nov, Asymptomatic human immunodeficiency viru s (HIV) infection status Z21 ; Influenza vaccine needed Z23 and Other chronic pain G89.[address] [facility] [address] [place] [address] Nov, Other chronic pain G89.[address] [facility] [address] [place] [address] Oct, [facility] [address] [place] [address] Oct, Other chronic pain G89.[address] [facility] [address] [place] [address] Oct, [facility] [address] [place] [id number] Sep, Asymptomatic human immunodeficiency viru s (HIV) infection status Z21 ; Other chronic pain G89.29 and Generalized anxiety disorder F41.1 [facility] [address] [place] [address] Jun, [facility] [address] [place] [address] Jun, [facility] [address] [place] [address] Jun, [facility] [address] [place] [id number] Jun, Asymptomatic human immunodeficiency viru s (HIV) infection status Z21 ; Need for pneumococcal vaccine Z23 ; Major depressive disorder, recurrent, moderate F33.1 ; Loss of appetite R63.0 ; Other chronic pain G89.29 ; Other and unspecified noninfectious gastroenteritis and colitis K52.9 and Nausea R11.0 [facility] [address] [place] [address] Jun, [facility] [address] [place] [address] Jun, Acute right ankle pain M25.571 [facility] [address] [place] [address] May, [facility] [address] [place] [address] May, Acute right ankle pain M25.571 [facility] [address] [place] [address] Apr, [facility] [address] [place] [address] Apr, [facility] [address] [place] [address] Mar, Acute right ankle pain M25.571 [facility] [address] [place] [address] Mar, [facility] [address] [place] [address], [place] [address] Mar, [facility] [address] [facility] [place] [facility] [place] [address] Mar, [facility] [address] [facility] [place] [address] Mar, [facility] [address] [place] [facility] [place] [address] Mar, [facility] [address] [facility] [place] [address] Mar, Nausea and vomiting, intractability of v omiting not specified, unspecified vomiting type R11.2 [facility] [address] [facility] [place] [address] Mar, [facility] [address] [facility] [place] [address] Mar, Loss of appetite R63.0 [facility] [address] [place] [address] Mar, [facility] [address] [facility] [place] [address] Mar, [facility] [address] [facility] [place] [address] Mar, [facility] [address] [facility] [place] [address] Feb, Abscess L02.91 [facility] [address] [place] [address] Feb, Acute right ankle pain M25.571 [facility] [address] [facility] [place] [address] Feb, [facility] [address] [facility] [place] [address] Feb, [facility] [address] [facility] [place] [address] Feb, [facility] [address] [facility] [place] [address] Feb, Acute right ankle pain M25.571 [facility] [address] [facility] [place] [address] Feb, Abscess L02.91 [facility] [address] [place] [id number] Jan, Asymptomatic human immunodeficiency viru s (HIV) infection status Z21 ; Influenza vaccine needed Z23 and Acute right ankle pain M25.571 [facility] [address] [place] [address] Jan, Abscess L02.91 [facility] [address] [place] [address] Nov, [facility] [address] [place] [address] Nov, Abscess L02.91 [facility] [address] [place] [address] Nov, Anxiety F41.9 [facility] [address] [place] [address] Nov, Acute right ankle pain M25.571 [facility] [address] [facility] [place] [address] 15 Nov, 2016 [facility] [address] [place] [address] Nov, [facility] [address] [place] [address] Nov, Hiccups R06.6 [facility] [address] [place] [address] Nov, [facility] [address] [place] [address] Nov, [facility] [address] [place] [address] Nov, [facility] [address] [place] [address] Nov, [facility] [address] [place] [address] Nov, [facility] [address] [place] [address] Nov, [facility] [address] [place] [address] Oct, [facility] [address] [place] [facility] [place] [address] Oct, [facility] [address] [place] [address] Oct, [facility] [address] [place] [facility] [place] [address] Oct, Abscess L02.91 [facility] [address] [place] [address] Oct, [facility] [address] [place] [facility] [place] [address] Oct, [facility] [address] [facility] [place] [address] Oct, [facility] [address] [place] [address] Oct, Abscess L02.91 and Acute right ankle ta n M25.[address] [facility] [address] [place] [address] Oct, [facility] [address] [place] [address] Oct, [facility] [address] [place] [address] Oct, Abscess L02.[address] 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 [address] [place] [address] Sep, [facility] [address] [place] [address] Sep, [facility] [address] [facility] [place] [address] Sep, [facility] [address] [place] [address] Sep, [facility] [address] [facility] [place] [address] Sep, [facility] [address] [facility] [place] [address] Aug, [facility] [address] [facility] [place] [address] Aug, [facility] [address] [place] [address] Aug, [facility] [address] [place] [address] Aug, Loss of appetite R63.0 ; Major depressiv e disorder, recurrent, moderate F33.1 and Functional diarrhea K59.[address] [facility] [address] [place] [address] Aug, Acute hemorrhoid K64.9 and Other osteoar thritis involving multiple joints M15.[address] [facility] [address] [place] [address] Aug, Abscess L02.[address] [facility] [address] [place] [address] July, Chronic diarrhea K52.[address] [facility] [address] [place] [address] July, [facility] [address] [place], [place] [id number] July, Asymptomatic human immunodeficiency viru s (HIV) infection status Z21 ; Nicotine dependence, cigarettes, uncomplicated F17.210 ; Chronic diarrhea K52.9 ; Abscess L02.91 ; GERD with esophagitis K21.0 ; Anxiety F41.9 and 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 [facility] [address] [place] [address] Jun, Pain in joint involving multiple sites M 25.[address] [address] Jun, [address] [address] Jun, Pain in joint involving multiple sites M 25.[address] [address] Jun, Pain in joint involving multiple sites M 25.50 ; GERD with esophagitis K21.0 and Intractable hiccups R06.[address] [address] May, Pain in joint involving multiple sites M 25.[address] [address] Apr, Pain in joint involving multiple sites M 25.50 and Anxiety F41.[address] [address] Apr, [address] [address] Apr, Chronic diarrhea K52.9 and Pain in joint involving multiple sites M25.50 [facility] [address] [place] [id number] 10 Apr, 2016 Asymptomatic human immunodeficiency viru s (HIV) infection status Z21 ; Mild intermittent asthma without complication J45.20 ; Iron deficiency anemia due to chronic blood loss D50.0 ; Screening, lipid Z13.220 ; Chronic diarrhea K52.9 ; Abscess L02.91 and Projectile vomiting with nausea R11.[address] [address] Feb, Acute hemorrhoid K64.[address] [address] Jan, [address] [address] Jan, Nausea and vomiting, intractability of v omiting not specified, unspecified vomiting type R11.2 and Acute right ankle pain M25.[address] [facility] [address] [place] [address] Jan, [facility] [address] [place] [address] Jan, Asymptomatic human immunodeficiency viru s (HIV) infection status Z21 ; Iron deficiency anemia due to chronic blood loss D50.0 and Generalized abdominal pain R10.84 [facility] [address] [place] [id number] Dec, Asymptomatic human immunodeficiency viru s (HIV) infection status Z21 ; Mild intermittent asthma without complication J45.20 ; Influenza vaccine needed Z23 and Nicotine dependence, cigarettes, uncomplicated F17.210 [facility] [address] [id number] 2 9 Oct, 2013 [facility] [address] [id number] 2 [address], [address] [facility] [address] [place] [address] [address], [address] [facility] [address] [place] [address] Feb, [facility] [address] [place] [address] [address], [address] [facility] [address] [place] [address] Aug, [facility] [address] [place] [address] Apr, [facility] [address] [id number] 1 8 Jan, 2011 IMMUNIZATIONS No Known [...]
--- OUTSIDE RECORDS SUMMARY | 2019-07-04 11:58 | XMS REPORT ---
Author Author ARTEMIO Li Organization [facility] Address [address], [place] [id number] Care Team Providers Care Leather Roller Name Role Phone Shana Li Unavailable PROBLEMS Type Condition ICD9-CM Code ESE80-CB Code Onset Dates Condition S tatus SNOMED Code Problem Mild intermittent asthma without complication J45. 20 Active 371892333 Problem Iron deficiency anemia due to chronic blood loss D 50.0 Active 02004020 Problem Other osteoarthritis involving multiple joints M15 .8 Active 425566281 Problem Asymptomatic human immunodeficiency virus (HIV) infect ion status Z21 Active 44960825 Problem Other and unspecified noninfectious gastroenteritis an d colitis K52.9 Active 15362658 Problem Nicotine dependence, cigarettes, uncomplicated F17 .210 Active 05429214 Problem Other chronic pain G89.29 Active 8 5977098 Problem Generalized anxiety disorder F41.1 A ctive 08219855 Problem GERD with esophagitis K21.0 Active 898844270 Problem Functional diarrhea K59.1 Active 37908274 Problem Major depressive disorder, recurrent, moderate F33 .1 Active 032323151 Problem Loss of appetite R63.0 Active 798 13957 ALLERGIES No Information ENCOUNTERS Encounter Location Date Diagnosis [facility] [address] [place], [place] [id number] Jan, [facility] [address] [place] [address] Dec, Other chronic pain G89.29 [facility] [address] [place] [address] Dec, Other chronic pain G89.29 [facility] [address] [place] [address] Dec, Other chronic pain G89.[address] [address] Dec, Other chronic pain G89.29 [facility] [address] [place] [address] Nov, Other chronic pain G89.29 [facility] [address] [place] [address] Nov, Other chronic pain G89.29 [facility] [address] [place] [address] Oct, Other chronic pain G89.29 [facility] [address] [place] [address] Oct, Other chronic pain G89.29 [facility] [address] [place] [address] Oct, Other chronic pain G89.29 [facility] [address] [place] [address] Oct, Other chronic pain G89.29 [facility] [address] [place] [address] Sep, Other chronic pain G89.29 [facility] [address] [place] [address] Sep, Other chronic pain G89.29 [facility] [address] [place] [id number] Sep, Asymptomatic human immunodeficiency viru s (HIV) infection status Z21 and GERD with esophagitis K21.0 [facility] [address] [place] [address] Sep, [facility] [address] [place] [address] Sep, Loss of appetite R63.0 and Other chronic pain G89.29 [facility] [address] [place] [address] Sep, Other chronic pain G89.29 [facility] [address] [place] [address] Aug, Other chronic pain G89.29 [facility] [address] [place] [address] Aug, Other chronic pain G89.29 [facility] [address] [place] [address] July, Other chronic pain G89.29 [facility] [address] [place] [facility] [place] [address] July, [facility] [address] [place] [facility] [place] [address] July, [facility] [address] [place] [facility] [place] [address] July, Other chronic pain G89.29 [facility] [address] [place] [facility] [place] [address] July, [facility] [address] [place] [facility] [place] [address] July, Other chronic pain G89.29 [facility] [address] [place] [facility] [place] [address] Jun, [facility] [address] [place] [facility] [place] [address] Jun, Other chronic pain G89.29 [facility] [address] [place] [facility] [place] [address] Jun, [facility] [address] [place] [facility] [place] [address] Jun, Other chronic pain G89.29 [facility] [address] [place] [facility] [place] [address] May, Other chronic pain G89.29 [facility] [address] [place] [facility] [place] [address] May, [facility] [address] [place] [facility] [place] [address] May, [facility] [address] [place] [facility] [place] [address] May, [facility] [address] [place] [facility] [place] [address] May, [facility] [address] [place] [facility] [place] [address] May, [facility] [address] [place] [facility] [place] [address] Apr, [facility] [address] [facility] [place] [address] Apr, [facility] [address] [facility] [place] [address] Apr, [facility] [address] [facility] [place] [address] Apr, [facility] [address] [facility] [place] [address] Apr, [facility] [address] [facility] [place] [address] Apr, [facility] [address] [facility] [place] [address] Apr, [facility] [address] [facility] [place] [address] Apr, [facility] [address] [facility] [place] [address] Apr, [facility] [address] [facility] [place] [address] Apr, Other chronic pain G89.29 [facility] [address] [facility] [place] [address] Apr, [facility] [address] [place] [id number] Apr, Asymptomatic human immunodeficiency viru s (HIV) infection status Z21 ; Other chronic pain G89.29 and Screening for cardiovascular condition Z13.6 [facility] [address] [place] [address] Apr, [facility] [address] [place] [address] Apr, [facility] [address] [place] [address] Apr, [facility] [address] [place] [address] Apr, Other chronic pain G89.29 [facility] [address] [place] [address] Mar, Loss of appetite R63.0 [facility] [address] [place] [address] Mar, [facility] [address] [place] [facility] [place] [address] Mar, [facility] [address] [place] [facility] [place] [address] Mar, [facility] [address] [place] [facility] [place] [address] Mar, [facility] [address] [place] [facility] [place] [address] Mar, Other chronic pain G89.29 [facility] [address] [place] [facility] [place] [address] Mar, [facility] [address] [place] [facility] [place] [address] Mar, [facility] [address] [place] [facility] [place] [address] Mar, [facility] [address] [place] [facility] [place] [address] Mar, Other chronic pain G89.29 [facility] [address] [facility] [place] [id number] Mar, Asymptomatic human immunodeficiency viru s (HIV) infection status Z21 [facility] [address] [place] [facility] [place] [address] Mar, Other chronic pain G89.29 [facility] [address] [place] [address] Mar, [facility] [address] [place] [facility] [place] [address] Mar, [facility] [address] [place] [facility] [place] [address] Feb, Other chronic pain G89.29 [facility] [address] [place] [facility] [place] [address] Feb, Other chronic pain G89.29 [facility] [address] [facility] [place] [id number] Feb, Other chronic pain G89.29 [facility] [address] [place] [id number] Feb, Asymptomatic human immunodeficiency viru s (HIV) infection status Z21 and Other chronic pain G89.29 [facility] [address] [place] [address] Jan, Other chronic pain G89.29 [facility] [address] [place] [address] Jan, Other chronic pain G89.29 [facility] [address] [place] [address] Jan, Asymptomatic human immunodeficiency viru s (HIV) infection status Z21 [facility] [address] [place] [address] Jan, Other chronic pain G89.29 [facility] [address] [place] [address] Jan, [facility] [address] [place] [address] Dec, Other chronic pain G89.29 [facility] [address] [place] [address] Dec, Other chronic pain G89.29 [facility] [address] [place] [id number] Nov, Asymptomatic human immunodeficiency viru s (HIV) infection status Z21 ; Influenza vaccine needed Z23 and Other chronic pain G89.29 [facility] [address] [place] [address] Nov, Other chronic pain G89.29 [facility] [address] [place] [address] Oct, [facility] [address] [place] [address] Oct, Other chronic pain G89.29 [facility] [address] [place] [address] Oct, [facility] [address] [place], [place] [id number] Sep, Asymptomatic human immunodeficiency viru s (HIV) infection status Z21 ; Other chronic pain G89.29 and Generalized anxiety disorder F41.1 [facility] [address] [place] [address] Jun, [facility] [address] [place] [address] Jun, [facility] [address] [place] [address] Jun, [facility] [address] [place], [place] [phone] Jun, Asymptomatic human immunodeficiency viru s (HIV) infection status Z21 ; Need for pneumococcal vaccine Z23 ; Major depressive disorder, recurrent, moderate F33.1 ; Loss of appetite R63.0 ; Other chronic pain G89.29 ; Other and unspecified noninfectious gastroenteritis and colitis K52.9 and Nausea R11.0 [facility] [address] [place] [address] Jun, [facility] [address] [place] [address] Jun, Acute right ankle pain M25.571 [facility] [address] [address] May, [facility] [address] [place] [address] May, Acute right ankle pain M25.571 [facility] [address] [place] [address] Apr, [facility] [address] [place] [address] Apr, [facility] [address] [place] [address] Mar, Acute right ankle pain M25.571 [facility] [address] [place] [address] Mar, [facility] [address] [place] [address] Mar, [facility] [address] [place] [address], [place] [address] Mar, [facility] [address] [place] [address] Mar, [facility] [address] [place] [address] Mar, [facility] [address] [place] [address] Mar, Nausea and vomiting, intractability of v omiting not specified, unspecified vomiting type R11.2 [facility] [address] [place] [address] Mar, [facility] [address] [place] [address] Mar, Loss of appetite R63.0 [facility] [address] [place] [address] Mar, [facility] [address] [place] [address] Mar, [facility] [address] [place] [address] Mar, [facility] [address] [place] [address] Feb, Abscess L02.[address] [address] Feb, Acute right ankle pain M25.[address] [address] Feb, [facility] [address] [place] [address] Feb, [address] [address] Feb, [facility] [address] [place] [address] Feb, Acute right ankle pain M25.[address] [address] Feb, Abscess L02.91 [facility] [address] [place] [id number] Jan, Asymptomatic human immunodeficiency viru s (HIV) infection status Z21 ; Influenza vaccine needed Z23 and Acute right ankle pain M25.[address] [address] Jan, Abscess L02.[address] [address] 28 Nov, 2016 [facility] [address] [place] [facility] [place] [address] Nov, Abscess L02.91 [facility] [address] [place] [facility] [place] [address] Nov, Anxiety F41.9 [facility] [address] [place] [facility] [place] [address] 25 Nov, 2016 Acute right ankle pain M25.571 [facility] [address] [place] [facility] [place] [address] 15 Nov, 2016 [facility] [address] [place] [facility] [place] [address] 14 Nov, 2016 [facility] [address] [place] [facility] [place] [address] 14 Nov, 2016 Hiccups R06.6 [facility] [address] [place] [facility] [place] [address] 13 Nov, 2016 [facility] [address] [place] [facility] [place] [address] 08 Nov, 2016 [facility] [address] [place] [facility] [place] [address] 08 Nov, 2016 [facility] [address] [place] [facility] [place] [address] Nov, [facility] [address] [place] [facility] [place] [address] Nov, [facility] [address] [place] [facility] [place] [address] Nov, [facility] [address] [place] [facility] [place] [address] Oct, [facility] [address] [place] [facility] [place] [address] Oct, [facility] [address] [place] [facility] [place] [address] Oct, [facility] [address] [place] [facility] [place] [address] Oct, Abscess L02.91 [facility] [address] [place] [facility] [place] [address] Oct, [facility] [address] [place] [facility] [place] [address] Oct, [facility] [address] [place] [facility] [place] [address] Oct, [facility] [address] [place] [address] Oct, Abscess L02.91 and Acute right ankle ta n M25.571 [facility] [address] [facility] [place] [address] Oct, [facility] [address] [place] [facility] [place] [address] Oct, [facility] [address] [facility] [place] [address] Oct, Abscess L02.91 [facility] [address] [place] [address] Oct, [facility] [address] [place] [address] Oct, [facility] [address] [place] [id number] Oct, Asymptomatic human immunodeficiency viru s (HIV) infection status Z21 ; half-way current use of opiate analgesic Z79.891 ; Nicotine dependence, cigarettes, uncomplicated F17.210 ; Iron deficiency anemia due to chronic blood loss D50.0 ; GERD with esophagitis K21.0 ; Major depressive disorder, recurrent, moderate F33.1 and Generalized anxiety disorder F41.1 [facility] [address] [place] [address] Sep, Major depressive disorder, recurrent, mo derate F33.1 [facility] [address] [place] [address] Sep, [facility] [address] [place] [address] Sep, [facility] [address] [place] [address] Sep, [facility] [address] [place] [address] Sep, [facility] [address] [place] [address] Sep, [facility] [address] [place] [address] Aug, [facility] [address] [place] [address] Aug, [facility] [address] [place] [address] Aug, [address] [address] Aug, Loss of appetite R63.0 ; Major depressiv e disorder, recurrent, moderate F33.1 and Functional diarrhea K59.[address] [address] Aug, Acute hemorrhoid K64.9 and Other osteoar thritis involving multiple joints M15.[address] [address] Aug, Abscess L02.[address] [address] July, Chronic diarrhea K52.[address] [address] July, [facility] [address] [place] [id number] July, Asymptomatic human immunodeficiency viru s (HIV) infection status Z21 ; Nicotine dependence, cigarettes, uncomplicated F17.210 ; Chronic diarrhea K52.9 ; Abscess L02.91 ; GERD with esophagitis K21.0 ; Anxiety F41.9 and 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 [address] Jun, Pain in joint involving multiple sites M 25.[address] [address] Jun, [address] [address] Jun, Pain in joint involving multiple sites M 25.[address] [address] Jun, Pain in joint involving multiple sites M 25.50 ; GERD with esophagitis K21.0 and Intractable hiccups R06.[address] [address] May, Pain in joint involving multiple sites M 25.[address] [address] Apr, Pain in joint involving multiple sites M 25.50 and Anxiety F41.[address] [address] Apr, [address] [address] Apr, Chronic diarrhea K52.9 and Pain in joint involving multiple sites M25.[address] [id number] Apr, Asymptomatic human immunodeficiency viru s (HIV) infection status Z21 ; Mild intermittent asthma without complication J45.20 ; Iron deficiency anemia due to chronic blood loss D50.0 ; Screening, lipid Z13.220 ; Chronic diarrhea K52.9 ; Abscess L02.91 and Projectile vomiting with nausea R11.[address] [address] Feb, Acute hemorrhoid K64.[address] [address] Jan, [address] [address] Jan, Nausea and vomiting, intractability of v omiting not specified, unspecified vomiting type R11.2 and Acute right ankle pain M25.[address] [address] Jan, [address] [address] Jan, Asymptomatic human immunodeficiency viru s (HIV) infection status Z21 ; Iron deficiency anemia due to chronic blood loss D50.0 and Generalized abdominal pain R10.84 [address] [place] [id number] Dec, Asymptomatic human immunodeficiency viru s (HIV) infection status Z21 ; Mild intermittent asthma without complication J45.20 ; Influenza vaccine needed Z23 and Nicotine dependence, cigarettes, uncomplicated F17.210 [facility] [address] [facility] [address] [place] [id number] 2 9 Oct, 2013 [facility] [address] [place] [id number] 8 Oct, 2013 [facility] [address] [place] [address] 08 May, 2012 [facility] [address] [place] [address] Feb, [facility] [address] [place] [address] 14 Nov, 2011 [facility] [address] [place] [address] Aug, [facility] [address] [place] [address] Apr, [facility] [address] [place] [id number] 1 8 Jan, 2011 IMMUNIZATIONS No Known [...]
--- OUTSIDE RECORDS SUMMARY | 2019-07-04 11:59 | XMS REPORT ---
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 20 Active 508107118 Problem Iron deficiency anemia due to chronic blood loss D 50.0 Active 66070680 Problem Other osteoarthritis involving multiple joints M15 .8 Active 052969380 Problem Asymptomatic human immunodeficiency virus (HIV) infect ion status Z21 Active 75439041 Problem Other and unspecified noninfectious gastroenteritis an d colitis K52.9 Active 80780142 Problem Nicotine dependence, cigarettes, uncomplicated F17 .210 Active 55553131 Problem Other chronic pain G89.29 Active 8 7962899 Problem Generalized anxiety disorder F41.1 A ctive 78258488 Problem GERD with esophagitis K21.0 Active 733932514 Problem Functional diarrhea K59.1 Active 15723832 Problem Major depressive disorder, recurrent, moderate F33 .1 Active 020849226 Problem Loss of appetite R63.0 Active 798 23184 ALLERGIES No Information ENCOUNTERS Encounter Location Date Diagnosis [facility] [address] [place], [place] [id number] Jan, [facility] [address] [place] [address] Dec, Other chronic pain G89.29 [facility] [address] [place] [address] Dec, Other chronic pain G89.29 [facility] [address] [place] [address] Nov, Other chronic pain G89.29 [facility] [address] [place] [address] Nov, Other chronic pain G89.29 [facility] [address] [place] [address] Oct, Other chronic pain G89.29 [facility] [address] [place] [address] Oct, Other chronic pain G89.29 [facility] [address] [place] [address] Oct, Other chronic pain G89.29 [facility] [address] [place] [address] Oct, Other chronic pain G89.29 [facility] [address] [place] [address] Sep, Other chronic pain G89.29 [facility] [address] [place] [address] Sep, Other chronic pain G89.29 [facility] [address] [place], [place] [phone] Sep, Asymptomatic human immunodeficiency viru s (HIV) infection status Z21 and GERD with esophagitis K21.0 [facility] [address] [place] [address] Sep, [facility] [address] [place] [address] Sep, Loss of appetite R63.0 and Other chronic pain G89.29 [facility] [address] [place] [address] Sep, Other chronic pain G89.29 [facility] [address] [place] [address] Aug, Other chronic pain G89.29 [facility] [address] [place] [address] Aug, Other chronic pain G89.29 [facility] [address] [place] [address] July, Other chronic pain G89.29 [facility] [address] [place] [address] July, [facility] [address] [place] [address] July, [facility] [address] [facility] [place] [address] July, Other chronic pain G89.29 [facility] [address] [place] [facility] [place] [address] July, [facility] [address] [place] [facility] [place] [address] July, Other chronic pain G89.29 [facility] [address] [place] [facility] [place] [address] Jun, [facility] [address] [facility] [place] [address] Jun, Other chronic pain G89.29 [facility] [address] [place] [facility] [place] [address] Jun, [facility] [address] [place] [facility] [place] [address] Jun, Other chronic pain G89.29 [facility] [address] [facility] [place] [address] May, Other chronic pain G89.29 [facility] [address] [facility] [place] [address] May, [facility] [address] [place] [facility] [place] [address] May, [facility] [address] [facility] [place] [address] May, [facility] [address] [facility] [place] [address] May, [facility] [address] [place] [facility] [place] [address] May, [facility] [address] [facility] [place] [address] Apr, [facility] [address] [facility] [place] [address] Apr, [facility] [address] [facility] [place] [address] Apr, [facility] [address] [facility] [place] [address] Apr, [facility] [address] [facility] [place] [address] Apr, [facility] [address] [facility] [place] [address] Apr, [facility] [address] [place] [address] Apr, [facility] [address] [facility] [place] [address] Apr, [facility] [address] [place] [address] Apr, [facility] [address] [place] [address] Apr, Other chronic pain G89.29 [facility] [address] [place] [address] Apr, [facility] [address] [place] [id number] Apr, Asymptomatic human immunodeficiency viru s (HIV) infection status Z21 ; Other chronic pain G89.29 and Screening for cardiovascular condition Z13.6 [facility] [address] [place] [address] Apr, [facility] [address] [place] [address] Apr, [facility] [address] [place] [address] Apr, [facility] [address] [place] [address] Apr, Other chronic pain G89.29 [facility] [address] [place] [address] Mar, Loss of appetite R63.0 [facility] [address] [place] [address] Mar, [facility] [address] [place] [address] Mar, [facility] [address] [place] [address] Mar, [facility] [address] [facility] [place] [address] Mar, [facility] [address] [place] [address] Mar, Other chronic pain G89.29 [facility] [address] [facility] [place] [address] Mar, [facility] [address] [facility] [place] [address] Mar, [facility] [address] [facility] [place] [address] Mar, [facility] [address] [facility] [place] [address] Mar, Other chronic pain G89.29 [facility] [address] [facility] [place] [phone] Mar, Asymptomatic human immunodeficiency viru s (HIV) infection status Z21 [facility] [address] [place] [address] Mar, Other chronic pain G89.29 [facility] [address] [facility] [place] [address] Mar, [facility] [address] [place] [address] Mar, [facility] [address] [place] [address] Feb, Other chronic pain G89.29 [facility] [address] [place] [address] Feb, Other chronic pain G89.29 [facility] [address] [facility] [place] [phone] Feb, Other chronic pain G89.29 [facility] [address] [place] [id number] Feb, Asymptomatic human immunodeficiency viru s (HIV) infection status Z21 and Other chronic pain G89.29 [facility] [address] [place] [address] Jan, Other chronic pain G89.29 [facility] [address] [facility] [place] [address] Jan, Other chronic pain G89.29 [facility] [address] [place] [address] Jan, Asymptomatic human immunodeficiency viru s (HIV) infection status Z21 [facility] [address] [place] [address] Jan, Other chronic pain G89.29 [facility] [address] [place] [address] Jan, [facility] [address] [place] [address] Dec, Other chronic pain G89.29 [facility] [address] [place] [address] Dec, Other chronic pain G89.29 [facility] [address] [id number] Nov, Asymptomatic human immunodeficiency viru s (HIV) infection status Z21 ; Influenza vaccine needed Z23 and Other chronic pain G89.29 [facility] [address] [place] [address] Nov, Other chronic pain G89.29 [facility] [address] [place] [address] Oct, [facility] [address] [place] [address] Oct, Other chronic pain G89.29 [facility] [address] [place] [address] Oct, [facility] [address] [phone] Sep, Asymptomatic human immunodeficiency viru s (HIV) infection status Z21 ; Other chronic pain G89.29 and Generalized anxiety disorder F41.1 [facility] [address] [place] [address] Jun, [facility] [address] [place] [address] Jun, [facility] [address] [place] [address] Jun, [facility] [address] [phone] Jun, Asymptomatic human immunodeficiency viru s (HIV) infection status Z21 ; Need for pneumococcal vaccine Z23 ; Major depressive disorder, recurrent, moderate F33.1 ; Loss of appetite R63.0 ; Other chronic pain G89.29 ; Other and unspecified noninfectious gastroenteritis and colitis K52.9 and Nausea R11.0 [facility] [address] [place] [address] Jun, [facility] [address] [place] [address] Jun, Acute right ankle pain M25.571 [facility] [address] [address] May, [facility] [address] [place] [address] May, Acute right ankle pain M25.571 [facility] [address] [address] Apr, [facility] [address] [place] [address] Apr, [facility] [address] [place] [address] Mar, Acute right ankle pain M25.571 [facility] [address] [address] Mar, [facility] [address] [place] [address] Mar, [facility] [address] [place] [address] Mar, [facility] [address] [place] [address] Mar, [facility] [address] [place] [address] Mar, [facility] [address] [place] [address] Mar, Nausea and vomiting, intractability of v omiting not specified, unspecified vomiting type R11.2 [facility] [address] [address] Mar, [facility] [address] [place] [address] Mar, Loss of appetite R63.0 [facility] [address] [place] [address] Mar, [facility] [address] [place] [address] Mar, [facility] [address] [place] [address] Mar, [facility] [address] [place] [address] Feb, Abscess L02.91 [facility] [address] [place] [address] Feb, Acute right ankle pain M25.571 [facility] [address] [place] [address] Feb, [facility] [address] [place] [address] Feb, [facility] [address] [place] [address] Feb, [facility] [address] [place] [address] Feb, Acute right ankle pain M25.[address] [address] Feb, Abscess L02.91 [facility] [address] [place] [phone] Jan, Asymptomatic human immunodeficiency viru s (HIV) infection status Z21 ; Influenza vaccine needed Z23 and Acute right ankle pain M25.571 [facility] [address] [place] [address] Jan, Abscess L02.91 [facility] [address] [place] [address] Nov, [facility] [address] [place] [address] Nov, Abscess L02.91 [facility] [address] [place] [address] Nov, Anxiety F41.9 [facility] [address] [facility] [place] [address] 25 Nov, 2016 Acute right ankle pain M25.571 [facility] [address] [place] [facility] [place] [address] 15 Nov, 2016 [facility] [address] [place] [facility] [place] [address] 14 Nov, 2016 [facility] [address] [facility] [place] [address] 14 Nov, 2016 Hiccups R06.6 [facility] [address] [facility] [place] [address] 13 Nov, 2016 [facility] [address] [place] [facility] [place] [address] 08 Nov, 2016 [facility] [address] [facility] [place] [address] 08 Nov, 2016 [facility] [address] [facility] [place] [address] Nov, [facility] [address] [facility] [place] [address] 06 Nov, 2016 [facility] [address] [facility] [place] [address] Nov, [facility] [address] [facility] [place] [address] Oct, [facility] [address] [facility] [place] [address] Oct, [facility] [address] [facility] [place] [address] Oct, [facility] [address] [place] [facility] [place] [address] Oct, Abscess L02.91 [facility] [address] [place] [facility] [place] [address] Oct, [facility] [address] [place] [facility] [place] [address] Oct, [facility] [address] [facility] [place] [address] Oct, [facility] [address] [place] [address] Oct, Abscess L02.91 and Acute right ankle ta n M25.571 [facility] [address] [place] [address] Oct, [facility] [address] [place] [address] Oct, [facility] [address] [place] [address] Oct, Abscess L02.91 [facility] [address] [place] [address] Oct, [facility] [address] [place] [address] Oct, [facility] [address] [place] [phone] Oct, Asymptomatic human immunodeficiency viru s (HIV) infection status Z21 ; jail current use of opiate analgesic Z79.891 ; Nicotine dependence, cigarettes, uncomplicated F17.210 ; Iron deficiency anemia due to chronic blood loss D50.0 ; GERD with esophagitis K21.0 ; Major depressive disorder, recurrent, moderate F33.1 and Generalized anxiety disorder F41.1 [facility] [address] [place] [address] Sep, Major depressive disorder, recurrent, mo derate F33.1 [facility] [address] [place] [address] Sep, [facility] [address] [place] [address] Sep, [facility] [address] [place] [address] Sep, [facility] [address] [place] [address] Sep, [facility] [address] [place] [address] Sep, [facility] [address] [place] [address] Aug, [facility] [address] [place] [address] Aug, [address] [address] Aug, [address] [address] Aug, Loss of appetite R63.0 ; Major depressiv e disorder, recurrent, moderate F33.1 and Functional diarrhea K59.[address] [address] Aug, Acute hemorrhoid K64.9 and Other osteoar thritis involving multiple joints M15.[address] [address] Aug, Abscess L02.[address] [address] July, Chronic diarrhea K52.[address] [address] July, [facility] [address] [place] [phone] July, Asymptomatic human immunodeficiency viru s (HIV) infection status Z21 ; Nicotine dependence, cigarettes, uncomplicated F17.210 ; Chronic diarrhea K52.9 ; Abscess L02.91 ; GERD with esophagitis K21.0 ; Anxiety F41.9 and 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 [address] Jun, Pain in joint involving multiple sites M 25.[address] [address] Jun, [address] [address] Jun, Pain in joint involving multiple sites M 25.[address] [address] Jun, Pain in joint involving multiple sites M 25.50 ; GERD with esophagitis K21.0 and Intractable hiccups R06.[address] [address] May, Pain in joint involving multiple sites M 25.[address] [address] 28 Apr, 2016 Pain in joint involving multiple sites M 25.50 and Anxiety F41.[address] [address] 17 Apr, [address] [address] 10 Apr, 2016 Chronic diarrhea K52.9 and Pain in joint involving multiple sites M25.50 [facility] [address] [place] [id number] 10 Apr, 2016 Asymptomatic human immunodeficiency viru s (HIV) infection status Z21 ; Mild intermittent asthma without complication J45.20 ; Iron deficiency anemia due to chronic blood loss D50.0 ; Screening, lipid Z13.220 ; Chronic diarrhea K52.9 ; Abscess L02.91 and Projectile vomiting with nausea R11.[address] [address] Feb, Acute hemorrhoid K64.[address] [address] Jan, [address] [address] Jan, Nausea and vomiting, intractability of v omiting not specified, unspecified vomiting type R11.2 and Acute right ankle pain M25.[address] [address] Jan, [address] [address] Jan, Asymptomatic human immunodeficiency viru s (HIV) infection status Z21 ; Iron deficiency anemia due to chronic blood loss D50.0 and Generalized abdominal pain R10.[address] [id number] Dec, Asymptomatic human immunodeficiency viru s (HIV) infection status Z21 ; Mild intermittent asthma without complication J45.20 ; Influenza vaccine needed Z23 and Nicotine dependence, cigarettes, uncomplicated F17.210 [facility] [address] [facility] [address] [place] [id number] Oct, [facility] [address] [facility] [address] [place] [id number] 8 Oct, 2013 [facility] [address] [place] [address] May, [facility] [address] [place] [address] Feb, [facility] [address] [place] [address] Nov, [facility] [address] [place] [address] Aug, [facility] [address] [place] [address] Apr, [facility] [address] [facility] [address] [place] [id number] 1 8 Jan, 2011 IMMUNIZATIONS No Known [...]
--- OUTSIDE RECORDS SUMMARY | 2019-07-04 11:59 | XMS REPORT ---
Author Author Sergio Li Organization [facility] Address [address], [place] [id number] Care Team Providers Care Director Epidemiology Name Role Phone Shana Li Unavailable PROBLEMS Type Condition ICD9-CM Code VUA18-NT Code Onset Dates Condition S tatus SNOMED Code Problem Mild intermittent asthma without complication J45. 20 Active 441592123 Problem Iron deficiency anemia due to chronic blood loss D 50.0 Active 82141440 Problem Other osteoarthritis involving multiple joints M15 .8 Active 559661851 Problem Asymptomatic human immunodeficiency virus (HIV) infect ion status Z21 Active 85958266 Problem Other and unspecified noninfectious gastroenteritis an d colitis K52.9 Active 76597806 Problem Nicotine dependence, cigarettes, uncomplicated F17 .210 Active 22171260 Problem Other chronic pain G89.29 Active 8 4464996 Problem Generalized anxiety disorder F41.1 A ctive 82316309 Problem GERD with esophagitis K21.0 Active 127645650 Problem Functional diarrhea K59.1 Active 90639995 Problem Major depressive disorder, recurrent, moderate F33 .1 Active 821758865 Problem Loss of appetite R63.0 Active 798 55421 ALLERGIES No Information ENCOUNTERS Encounter Location Date Diagnosis [facility] [address] [place] [address] Nov, Other chronic pain G89.29 [facility] [address] [place] [address] Oct, Other chronic pain G89.29 [facility] [address] [place] [address] Oct, Other chronic pain G89.29 [facility] [address] [place] [address] Oct, Other chronic pain G89.29 [facility] [address] [place] [address] Oct, Other chronic pain G89.29 [facility] [address] [place] [facility] [place] [address] Sep, Other chronic pain G89.29 [facility] [address] [place] [facility] [place] [address] Sep, Other chronic pain G89.29 [facility] [address] [place] [id number] Sep, Asymptomatic human immunodeficiency viru s (HIV) infection status Z21 and GERD with esophagitis K21.0 [facility] [address] [facility] [place] [address] Sep, [facility] [address] [facility] [place] [address] Sep, Loss of appetite R63.0 and Other chronic pain G89.29 [facility] [address] [facility] [place] [address] Sep, Other chronic pain G89.29 [facility] [address] [facility] [place] [address] Aug, Other chronic pain G89.29 [facility] [address] [facility] [place] [address] Aug, Other chronic pain G89.29 [facility] [address] [facility] [place] [address] July, Other chronic pain G89.29 [facility] [address] [place] [address] July, [facility] [address] [facility] [place] [address] July, [facility] [address] [place] [address] July, Other chronic pain G89.29 [facility] [address] [facility] [place] [address] July, [facility] [address] [facility] [place] [address] July, Other chronic pain G89.29 [facility] [address] [facility] [place] [address] Jun, [facility] [address] [facility] [place] [address] Jun, Other chronic pain G89.29 [facility] [address] [facility] [place] [address] Jun, [facility] [address] [facility] [place] [address] Jun, Other chronic pain G89.29 [facility] [address] [facility] [place] [address] May, Other chronic pain G89.29 [facility] [address] [facility] [place] [address] May, [facility] [address] [facility] [place] [address] May, [facility] [address] [facility] [place] [address] May, [facility] [address] [facility] [place] [address] May, [facility] [address] [facility] [place] [address] May, [facility] [address] [facility] [place] [address] Apr, [facility] [address] [facility] [place] [address] Apr, [facility] [address] [facility] [place] [address] Apr, [facility] [address] [facility] [place] [address] Apr, [facility] [address] [facility] [place] [address] Apr, [facility] [address] [facility] [place] [address] Apr, [facility] [address] [facility] [place] [address] Apr, [facility] [address] [facility] [place] [address] Apr, [facility] [address] [facility] [place] [address] Apr, [facility] [address] [place] [address] Apr, Other chronic pain G89.29 [facility] [address] [facility] [place] [address] 19 Apr, 2018 [facility] [address] [place] [id number] 15 Apr, 2018 Asymptomatic human immunodeficiency viru s (HIV) infection status Z21 ; Other chronic pain G89.29 and Screening for cardiovascular condition Z13.6 [facility] [address] [facility] [place] [address] 14 Apr, 2018 [facility] [address] [facility] [place] [address] Apr, [facility] [address] [place] [address] Apr, [facility] [address] [facility] [place] [address] Apr, Other chronic pain G89.29 [facility] [address] [facility] [place] [address] Mar, Loss of appetite R63.0 [facility] [address] [facility] [place] [address] Mar, [facility] [address] [place] [address] Mar, [facility] [address] [facility] [place] [address] Mar, [facility] [address] [place] [address] Mar, [facility] [address] [place] [address] Mar, Other chronic pain G89.29 [facility] [address] [place] [address] Mar, [facility] [address] [place] [address] Mar, [facility] [address] [place] [address] Mar, [facility] [address] [place] [address] Mar, Other chronic pain G89.29 [facility] [address] [facility] [place] [id number] Mar, Asymptomatic human immunodeficiency viru s (HIV) infection status Z21 [facility] [address] [place] [address] Mar, Other chronic pain G89.29 [facility] [address] [facility] [place] [address] Mar, [facility] [address] [place] [address] Mar, [facility] [address] [place] [address] Feb, Other chronic pain G89.29 [facility] [address] [place] [address] Feb, Other chronic pain G89.29 [facility] [address] [facility] [place] [id number] Feb, Other chronic pain G89.29 [facility] [address] [place] [id number] Feb, Asymptomatic human immunodeficiency viru s (HIV) infection status Z21 and Other chronic pain G89.29 [facility] [address] [place] [address] Jan, Other chronic pain G89.29 [facility] [address] [place] [address] Jan, Other chronic pain G89.29 [facility] [address] [place] [address] Jan, Asymptomatic human immunodeficiency viru s (HIV) infection status Z21 [facility] [address] [place] [address] Jan, Other chronic pain G89.29 [facility] [address] [place] [address] Jan, [facility] [address] [place] [address] Dec, Other chronic pain G89.29 [facility] [address] [place] [address] Dec, Other chronic pain G89.[address] [id number] Nov, Asymptomatic human immunodeficiency viru s (HIV) infection status Z21 ; Influenza vaccine needed Z23 and Other chronic pain G89.29 [facility] [address] [place] [address] Nov, Other chronic pain G89.[address] [address] Oct, [address] [address] Oct, Other chronic pain G89.[address] [address] Oct, [address] [id number] Sep, Asymptomatic human immunodeficiency viru s (HIV) infection status Z21 ; Other chronic pain G89.29 and Generalized anxiety disorder F41.[address] [address] Jun, [address] [address] Jun, [address] [address] Jun, [address] [id number] Jun, Asymptomatic human immunodeficiency viru s (HIV) infection status Z21 ; Need for pneumococcal vaccine Z23 ; Major depressive disorder, recurrent, moderate F33.1 ; Loss of appetite R63.0 ; Other chronic pain G89.29 ; Other and unspecified noninfectious gastroenteritis and colitis K52.9 and Nausea R11.[address] [address] Jun, [address] [address] Jun, Acute right ankle pain M25.571 [facility] [address] [facility] [place] [address] May, [facility] [address] [facility] [place] [address] May, Acute right ankle pain M25.571 [facility] [address] [facility] [place] [address] Apr, [facility] [address] [facility] [place] [address] Apr, [facility] [address] [facility] [place] [address] Mar, Acute right ankle pain M25.571 [facility] [address] [facility] [place] [address] Mar, [facility] [address] [facility] [place] [address] Mar, [facility] [address] [facility] [place] [address] Mar, [facility] [address] [facility] [place] [address] Mar, [facility] [address] [facility] [place] [address] Mar, [facility] [address] [facility] [place] [address] Mar, Nausea and vomiting, intractability of v omiting not specified, unspecified vomiting type R11.2 [facility] [address] [facility] [place] [address] Mar, [facility] [address] [facility] [place] [address] Mar, Loss of appetite R63.0 [facility] [address] [facility] [place] [address] Mar, [facility] [address] [facility] [place] [address] Mar, [facility] [address] [facility] [place] [address] Mar, [facility] [address] [place] [address] Feb, Abscess L02.91 [facility] [address] [place] [address] Feb, Acute right ankle pain M25.571 [facility] [address] [place] [address] Feb, [facility] [address] [place] [address] Feb, [facility] [address] [place] [address] Feb, [facility] [address] [place] [address] Feb, Acute right ankle pain M25.571 [facility] [address] [place] [address] Feb, Abscess L02.91 [facility] [address] [place] [id number] Jan, Asymptomatic human immunodeficiency viru s (HIV) infection status Z21 ; Influenza vaccine needed Z23 and Acute right ankle pain M25.571 [facility] [address] [place] [address] Jan, Abscess L02.91 [facility] [address] [place] [address] Nov, [facility] [address] [place] [address] Nov, Abscess L02.91 [facility] [address] [place] [address] Nov, Anxiety F41.9 [facility] [address] [place] [address] Nov, Acute right ankle pain M25.571 [facility] [address] [place] [address] Nov, [facility] [address] [place] [address] Nov, [facility] [address] [place] [address] Nov, Hiccups R06.6 [facility] [address] [facility] [place] [address] 13 Nov, 2016 [facility] [address] [facility] [place] [address] Nov, [facility] [address] [facility] [place] [address] Nov, [facility] [address] [facility] [place] [address] Nov, [facility] [address] [facility] [place] [address] Nov, [facility] [address] [facility] [place] [address] Nov, [facility] [address] [facility] [place] [address] Oct, [facility] [address] [facility] [place] [address] Oct, [facility] [address] [facility] [place] [address] Oct, [facility] [address] [facility] [place] [address] Oct, Abscess L02.91 [facility] [address] [facility] [place] [address] Oct, [facility] [address] [facility] [place] [address] Oct, [facility] [address] [facility] [place] [address] Oct, [facility] [address] [facility] [place] [address] Oct, Abscess L02.91 and Acute right ankle ta n M25.571 [facility] [address] [facility] [place] [address] Oct, [facility] [address] [facility] [place] [address] Oct, [facility] [address] [facility] [place] [address] Oct, Abscess L02.91 [facility] [address] [facility] [place] [address] Oct, [facility] [address] [place] [address] Oct, [facility] [address] [place] [id number] Oct, Asymptomatic human immunodeficiency viru s (HIV) infection status Z21 ; intermediate current use of opiate analgesic Z79.891 ; Nicotine dependence, cigarettes, uncomplicated F17.210 ; Iron deficiency anemia due to chronic blood loss D50.0 ; GERD with esophagitis K21.0 ; Major depressive disorder, recurrent, moderate F33.1 and Generalized anxiety disorder F41.1 [facility] [address] [place] [address] Sep, Major depressive disorder, recurrent, mo derate F33.1 [facility] [address] [place] [address] Sep, [facility] [address] [place] [address] Sep, [facility] [address] [place] [address] Sep, [facility] [address] [place] [address] Sep, [facility] [address] [place] [address] Sep, [facility] [address] [place] [address] Aug, [facility] [address] [place] [address] Aug, [facility] [address] [place] [address] Aug, [facility] [address] [place] [address] Aug, Loss of appetite R63.0 ; Major depressiv e disorder, recurrent, moderate F33.1 and Functional diarrhea K59.1 [facility] [address] [place] [address] Aug, Acute hemorrhoid K64.9 and Other osteoar thritis involving multiple joints M15.8 [facility] [address] [place] [address] Aug, Abscess L02.[address] [address] July, Chronic diarrhea K52.[address] [address] July, [address] [id number] July, Asymptomatic human immunodeficiency viru s (HIV) infection status Z21 ; Nicotine dependence, cigarettes, uncomplicated F17.210 ; Chronic diarrhea K52.9 ; Abscess L02.91 ; GERD with esophagitis K21.0 ; Anxiety F41.9 and 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 [address] Jun, Pain in joint involving multiple sites M 25.[address] [address] Jun, [address] [address] Jun, Pain in joint involving multiple sites M 25.[address] [address] Jun, Pain in joint involving multiple sites M 25.50 ; GERD with esophagitis K21.0 and Intractable hiccups R06.[address] [address] May, Pain in joint involving multiple sites M 25.[address] [address] Apr, Pain in joint involving multiple sites M 25.50 and Anxiety F41.[address] [address] Apr, [address] [address] Apr, Chronic diarrhea K52.9 and Pain in joint involving multiple sites M25.[address] [id number] Apr, 2016 Asymptomatic human immunodeficiency viru s (HIV) infection status Z21 ; Mild intermittent asthma without complication J45.20 ; Iron deficiency anemia due to chronic blood loss D50.0 ; Screening, lipid Z13.220 ; Chronic diarrhea K52.9 ; Abscess L02.91 and Projectile vomiting with nausea R11.[address] [address] Feb, Acute hemorrhoid K64.[address] [address] Jan, [address] [address] Jan, Nausea and vomiting, intractability of v omiting not specified, unspecified vomiting type R11.2 and Acute right ankle pain M25.[address] [address] Jan, [address] [address] Jan, Asymptomatic human immunodeficiency viru s (HIV) infection status Z21 ; Iron deficiency anemia due to chronic blood loss D50.0 and Generalized abdominal pain R10.84 [facility] [address] [place] [id number] Dec, Asymptomatic human immunodeficiency viru s (HIV) infection status Z21 ; Mild intermittent asthma without complication J45.20 ; Influenza vaccine needed Z23 and Nicotine dependence, cigarettes, uncomplicated F17.210 [facility] [address] [id number] 2 Oct, [facility] [address] [id number] 2 Oct, [address] [address] 08 May, [address] [address] 14 Feb, [address] [address] 14 Nov, [address] [place] [address] Aug, [facility] [address] [place] [address] Apr, [facility] [address] [facility] [address] [place] [id number] 1 Jan, IMMUNIZATIONS No Known Immunizations SOCIAL [...]
--- OUTSIDE RECORDS SUMMARY | 2019-07-04 11:59 | XMS REPORT ---
Author Author Sergio Brunner [facility] Address [address], [place] [id number] Care Team Providers Care Ekg Manager Name Role Phone Veronika Brunner Unavailable PROBLEMS Type Condition ICD9-CM Code TYE94-EV Code Onset Dates Condition S tatus SNOMED Code Problem Mild intermittent asthma without complication J45. 20 Active 925243770 Problem Iron deficiency anemia due to chronic blood loss D 50.0 Active 16821676 Problem Other osteoarthritis involving multiple joints M15 .8 Active 926086652 Problem Asymptomatic human immunodeficiency virus (HIV) infect ion status Z21 Active 26781589 Problem Other and unspecified noninfectious gastroenteritis an d colitis K52.9 Active 91662049 Problem Nicotine dependence, cigarettes, uncomplicated F17 .210 Active 05455831 Problem Other chronic pain G89.29 Active 8 0875793 Problem Generalized anxiety disorder F41.1 A ctive 74859661 Problem GERD with esophagitis K21.0 Active 307287546 Problem Functional diarrhea K59.1 Active 24078457 Problem Major depressive disorder, recurrent, moderate F33 .1 Active 762388117 Problem Loss of appetite R63.0 Active [id number] 39934 ALLERGIES No Information ENCOUNTERS Encounter Location Date Diagnosis [facility] [place] [address] [place] [address] Oct, Other chronic pain G89.29 [facility] [place] [address] [place] [address] Oct, Other chronic pain G89.29 [facility] [place] [address] [place] [address] Oct, Other chronic pain G89.29 [facility] [place] [address] [place] [address] Oct, Other chronic pain G89.29 [facility] [place] [address] [place] [address] Sep, Other chronic pain G89.29 [facility] [place] [address] [place] [address] Sep, Other chronic pain G89.29 [facility] [address] [facility] [place] [id number] Sep, Asymptomatic human immunodef iciency virus (HIV) infection status Z21 and GERD with esophagitis K21.0 [facility] [address] [facility] [place] [facility] [address] Sep, [facility] [address] [place] [address] Sep, Loss of appetite R63.0 and Other chronic pain G89.29 [facility] [address] [facility] [place] [facility] [address] Sep, Other chronic pain G89.29 [facility] [address] [facility] [place] [facility] [address] Aug, Other chronic pain G89.29 [facility] [address] [facility] [place] [facility] [address] Aug, Other chronic pain G89.29 [facility] [address] [place] [address] July, Other chronic pain G89.29 [facility] [address] [place] [address] July, [facility] [address] [place] [address] July, [facility] [address] [place] [address] July, Other chronic pain G89.29 [facility] [address] [facility] [place] [facility] [address] July, [facility] [address] [facility] [address] July, Other chronic pain G89.29 [facility] [address] [facility] [place] [facility] [address] Jun, [facility] [address] [facility] [place] [facility] [address] Jun, Other chronic pain G89.29 [facility] [address] [facility] [place] [facility] [address] Jun, [facility] [address] [facility] [place] [facility] [address] Jun, Other chronic pain G89.29 [facility] [address] [facility] [address] May, Other chronic pain G89.29 [facility] [address] [facility] [address] May, [facility] [address] [facility] [place] [facility] [address] May, [facility] [address] [facility] [place] [facility] [address] May, [facility] [address] [facility] [place] [facility] [address] May, [facility] [address] [facility] [place] [facility] [address] May, [facility] [address] [facility] [place] [facility] [address] Apr, [facility] [address] [facility] [place] [facility] [address] Apr, [facility] [address] [facility] [place] [facility] [address] Apr, [facility] [address] [facility] [place] [facility] [address] Apr, [facility] [address] [facility] [address] Apr, [facility] [address] [facility] [place] [facility] [address] Apr, [facility] [address] [facility] [place] [facility] [address] Apr, [facility] [address] [facility] [place] [facility] [address] Apr, [facility] [address] [facility] [place] [facility] [address] Apr, [facility] [address] [facility] [place] [facility] [address] 20 Apr, 2018 Other chronic pain G89.29 [facility] [address] [place] [address] 19 Apr, 2018 [facility] [address] [facility] [place] [id number] 15 Apr, 2018 Asymptomatic human immunodef iciency virus (HIV) infection status Z21 ; Other chronic pain G89.29 and Screening for cardiovascular condition Z13.6 [facility] [address] [facility] [place] [facility] [address] 14 Apr, 2018 [facility] [address] [place] [address] Apr, [facility] [address] [facility] [place] [facility] [address] Apr, [facility] [address] [place] [address] Apr, Other chronic pain G89.29 [facility] [address] [facility] [place] [facility] [address] Mar, Loss of appetite R63.0 [facility] [address] [place] [address] Mar, [facility] [address] [place] [address] Mar, [facility] [address] [place] [address] Mar, [facility] [address] [place] [address] Mar, [facility] [address] [place] [address] Mar, Other chronic pain G89.29 [facility] [address] [place] [address] Mar, [facility] [address] [place] [address] Mar, [facility] [address] [place] [address] Mar, [facility] [address] [place] [address] Mar, Other chronic pain G89.29 [facility] [address] [facility] [id number] Mar, Asymptomatic human immunodeficiency viru s (HIV) infection status Z21 [facility] [place] [address] [place] [address] Mar, Other chronic pain G89.29 [facility] [address] [place] [place] [address] Mar, [facility] [place] [address] [place] [address] Mar, [facility] [place] [address] [place] [address] Feb, Other chronic pain G89.29 [facility] [place] [address] [place] [address] Feb, Other chronic pain G89.29 [facility] [address] [facility] [place] [id number] Feb, Other chronic pain G89.29 [facility] [address] [facility] [place] [id number] Feb, Asymptomatic human immunodef iciency virus (HIV) infection status Z21 and Other chronic pain G89.29 [facility] [place] [address] [place] [address] Jan, Other chronic pain G89.29 [facility] [place] [address] [place] [address] Jan, Other chronic pain G89.29 [facility] [place] [address] [place] [address] Jan, Asymptomatic human immunodeficiency viru s (HIV) infection status Z21 [facility] [place] [address] [place] [address] Jan, Other chronic pain G89.29 [facility] [place] [place] [address] [place] [address] Jan, [facility] [place] [address] [place] [address] Dec, Other chronic pain G89.29 [facility] [place] [address] [place] [address] Dec, Other chronic pain G89.29 [facility] [address] [id number] Nov, Asymptomatic human immunodef iciency virus (HIV) infection status Z21 ; Influenza vaccine needed Z23 and Other chronic pain G89.29 [facility] [place] [address] [place] [address] 05 Nov, 2017 Other chronic pain G89.29 [facility] [place] [address] [place] [address] Oct, [address] [address] Oct, Other chronic pain G89.[address] [address] Oct, [address] [id number] Sep, Asymptomatic human immunodef iciency virus (HIV) infection status Z21 ; Other chronic pain G89.29 and Generalized anxiety disorder F41.[address] [address] Jun, [address] [address] Jun, [address] [address] Jun, [address] [id number] Jun, Asymptomatic human immunodef iciency virus (HIV) infection status Z21 ; Need for pneumococcal vaccine Z23 ; Major depressive disorder, recurrent, moderate F33.1 ; Loss of appetite R63.0 ; Other chronic pain G89.29 ; Other and unspecified noninfectious gastroenteritis and colitis K52.9 and Nausea R11.0 [facility] [place] [address] [place] [address] Jun, [address] [address] Jun, Acute right ankle pain M25.571 [facility] [address] [facility] [place] [address] May, [facility] [address] [facility] [place] [facility] [address] May, Acute right ankle pain M25.571 [facility] [address] [facility] [place] [facility] [address] Apr, [facility] [address] [facility] [place] [facility] [address] Apr, [facility] [address] [facility] [place] [facility] [address] Mar, Acute right ankle pain M25.571 [facility] [address] [facility] [place] [facility] [address] Mar, [facility] [address] [facility] [place] [facility] [address] Mar, [facility] [address] [facility] [place] [facility] [address] Mar, [facility] [address] [facility] [place] [facility] [address] Mar, [facility] [address] [facility] [place] [facility] [address] Mar, [facility] [address] [facility] [place] [facility] [address] Mar, Nausea and vomiting, intractability of v omiting not specified, unspecified vomiting type R11.2 [facility] [address] [facility] [place] [facility] [address] Mar, [facility] [address] [place] [address] Mar, Loss of appetite R63.0 [facility] [address] [place] [address] Mar, [facility] [address] [facility] [place] [address] Mar, [facility] [address] [facility] [place] [facility] [address] Mar, [facility] [address] [place] [address] Feb, Abscess L02.91 [facility] [address] [place] [address] Feb, Acute right ankle pain M25.571 [facility] [address] [place] [address] Feb, [facility] [address] [place] [address] Feb, [facility] [address] [place] [address] Feb, [facility] [address] [place] [address] Feb, Acute right ankle pain M25.571 [facility] [address] [place] [address] Feb, Abscess L02.91 [facility] [address] [place] [id number] Jan, Asymptomatic human immunodef iciency virus (HIV) infection status Z21 ; Influenza vaccine needed Z23 and Acute right ankle pain M25.571 [facility] [address] [place] [address] Jan, Abscess L02.91 [facility] [address] [place] [address] Nov, [facility] [address] [place] [address] Nov, Abscess L02.91 [facility] [address] [place] [address] Nov, Anxiety F41.9 [facility] [address] [place] [address] Nov, Acute right ankle pain M25.571 [facility] [address] [place] [address] Nov, [facility] [address] [place] [address] Nov, [facility] [address] [place] [address] Nov, Hiccups R06.6 [facility] [address] [facility] [place] [facility] [address] Nov, [facility] [address] [facility] [place] [facility] [address] Nov, [facility] [address] [facility] [place] [address] Nov, [facility] [address] [facility] [place] [address] Nov, [facility] [address] [facility] [place] [address] Nov, [facility] [address] [facility] [place] [address] Nov, [facility] [address] [facility] [place] [address] Oct, [facility] [address] [facility] [place] [address] Oct, [facility] [address] [facility] [place] [facility] [address] Oct, [facility] [address] [facility] [place] [address] Oct, Abscess L02.91 [facility] [address] [facility] [place] [facility] [address] Oct, [facility] [address] [place] [address] Oct, [facility] [address] [place] [address] Oct, [facility] [address] [place] [address] Oct, Abscess L02.91 and Acute right ankle ta n M25.571 [facility] [address] [facility] [place] [facility] [address] Oct, [facility] [address] [facility] [place] [facility] [address] Oct, [facility] [address] [place] [address] Oct, Abscess L02.91 [facility] [address] [place] [address] Oct, [facility] [place] [facility] [address] [place] [address] Oct, 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 ; Nicotine dependence, cigarettes, uncomplicated F17.210 ; Iron deficiency anemia due to chronic blood loss D50.0 ; GERD with esophagitis K21.0 ; Major depressive disorder, recurrent, moderate F33.1 and Generalized anxiety disorder F41.1 [facility] [address] [place] [address] Sep, Major depressive disorder, recurrent, mo derate F33.1 [facility] [address] [place] [address] Sep, [facility] [address] [place] [address] Sep, [facility] [address] [place] [address] Sep, [facility] [address] [place] [address] Sep, [facility] [address] [place] [address] Sep, [facility] [address] [place] [address] Aug, [facility] [address] [place] [address] Aug, [facility] [address] [place] [address] Aug, [facility] [address] [place] [address] Aug, Loss of appetite R63.0 ; Major depressiv e disorder, recurrent, moderate F33.1 and Functional diarrhea K59.1 [facility] [address] [place] [address] Aug, Acute hemorrhoid K64.9 and Other osteoar thritis involving multiple joints M15.8 [facility] [address] [place] [address] Aug, Abscess L02.91 [facility] [place] [address] [place] [address] July, Chronic diarrhea K52.9 [facility] [place] [place] [address] [place] [address] July, [facility] [address] [place] [id number] July, Asymptomatic human immunodef iciency virus (HIV) infection status Z21 ; Nicotine dependence, cigarettes, uncomplicated F17.210 ; Chronic diarrhea K52.9 ; Abscess L02.91 ; GERD with esophagitis K21.0 ; Anxiety F41.9 and 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 [facility] [place] [address] [place] [address] Jun, Pain in joint involving multiple sites M 25.[address] [address] Jun, [facility] [address] [place] [address] Jun, Pain in joint involving multiple sites M 25.[address] [address] Jun, Pain in joint involving multiple sites M 25.50 ; GERD with esophagitis K21.0 and Intractable hiccups R06.[address] [address] May, Pain in joint involving multiple sites M 25.50 [facility] [place] [place] [address] [place] [address] Apr, Pain in joint involving multiple sites M 25.50 and Anxiety F41.9 [facility] [place] [address] [place] [address] Apr, [facility] [address] [place] [address] Apr, Chronic diarrhea K52.9 and Pain in joint involving multiple sites M25.50 [facility] [address] [id number] 10 Apr, 2016 Asymptomatic human immunodef iciency virus (HIV) infection status Z21 ; Mild intermittent asthma without complication J45.20 ; Iron deficiency anemia due to chronic blood loss D50.0 ; Screening, lipid Z13.220 ; Chronic diarrhea K52.9 ; Abscess L02.91 and Projectile vomiting with nausea R11.[address] [address] Feb, Acute hemorrhoid K64.[address] [address] Jan, [address] [address] Jan, Nausea and vomiting, intractability of v omiting not specified, unspecified vomiting type R11.2 and Acute right ankle pain M25.[address] [address] Jan, [address] [address] Jan, Asymptomatic human immunodeficiency viru s (HIV) infection status Z21 ; Iron deficiency anemia due to chronic blood loss D50.0 and Generalized abdominal pain R10.[address] [id number] Dec, Asymptomatic human immunodef iciency virus (HIV) infection status Z21 ; Mild intermittent asthma without complication J45.20 ; Influenza vaccine needed Z23 and Nicotine dependence, cigarettes, uncomplicated F17.210 [facility] [address] [id number] 2 Oct, [facility] [address] [place] [id number] 2 Oct, [facility] [place] [address] [place] [address] 08 May, 2012 [facility] [address] [place] [address] 14 Feb, [address] [address] Nov, [facility] [place] [address] [place] [address] Aug, [facility] [address] [place] [address] Apr, [facility] [address] [facility] [address] [place] [id number] 1 8 Jan, 2011 IMMUNIZATIONS No Known [...]
--- OUTSIDE RECORDS SUMMARY | 2019-07-04 11:59 | XMS REPORT ---
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 20 Active 650503111 Problem Iron deficiency anemia due to chronic blood loss D 50.0 Active 96060015 Problem Other osteoarthritis involving multiple joints M15 .8 Active 175992337 Problem Asymptomatic human immunodeficiency virus (HIV) infect ion status Z21 Active 19529596 Problem Other and unspecified noninfectious gastroenteritis an d colitis K52.9 Active 94043418 Problem Nicotine dependence, cigarettes, uncomplicated F17 .210 Active 79222683 Problem Other chronic pain G89.29 Active 8 4979565 Problem Generalized anxiety disorder F41.1 A ctive 13619188 Problem GERD with esophagitis K21.0 Active 503312000 Problem Functional diarrhea K59.1 Active 03599839 Problem Major depressive disorder, recurrent, moderate F33 .1 Active 627222956 Problem Loss of appetite R63.0 Active 798 77671 ALLERGIES No Information ENCOUNTERS Encounter Location Date Diagnosis [facility] [address] [place] [address] Nov, Other chronic pain G89.29 [facility] [address] [place] [address] 13 Nov, 2018 Other chronic pain G89.29 [facility] [address] [place] [address] Oct, Other chronic pain G89.29 [facility] [address] [place] [address] Oct, Other chronic pain G89.29 [facility] [address] [place] [address] Oct, Other chronic pain G89.[address] [facility] [address] [place] [address] Oct, Other chronic pain G89.29 [facility] [address] [place] [address] Sep, Other chronic pain G89.29 [facility] [address] [place] [address] Sep, Other chronic pain G89.29 [facility] [address] [place], [place] [id number] Sep, Asymptomatic human immunodeficiency viru s (HIV) infection status Z21 and GERD with esophagitis K21.[address] [facility] [address] [place] [facility] [place] [address] Sep, [facility] [address] [place] [address] Sep, Loss of appetite R63.0 and Other chronic pain G89.[address] [facility] [address] [place] [facility] [place] [address] Sep, Other chronic pain G89.[address] [facility] [address] [place] [address] Aug, Other chronic pain G89.[address] [facility] [address] [place] [address] Aug, Other chronic pain G89.[address] [facility] [address] [place] [address] July, Other chronic pain G89.29 [facility] [address] [place] [address] July, [facility] [address] [place] [address] July, [facility] [address] [place] [address] July, Other chronic pain G89.[address] [facility] [address] [place] [address] July, [facility] [address] [place] [address] July, Other chronic pain G89.29 [facility] [address] [place] [facility] [place] [address] Jun, [facility] [address] [place] [facility] [address] Jun, Other chronic pain G89.29 [facility] [address] [place] [facility] [address] Jun, [facility] [address] [place] [facility] [address] Jun, Other chronic pain G89.29 [facility] [address] [place] [facility] [place] [address] May, Other chronic pain G89.29 [facility] [address] [place] [facility] [address] May, [facility] [address] [place] [facility] [address] May, [facility] [address] [place] [facility] [address] May, [facility] [address] [place] [facility] [address] May, [facility] [address] [place] [facility] [address] May, [facility] [address] [place] [facility] [address] Apr, [facility] [address] [place] [facility] [address] Apr, [facility] [address] [place] [facility] [address] Apr, [facility] [address] [place] [facility] [place] [address] Apr, [facility] [address] [place] [facility] [address] Apr, [facility] [address] [place] [facility] [address] Apr, [facility] [address] [place] [facility] [address] Apr, [facility] [address] [place] [address] Apr, [facility] [address] [place] [address] Apr, [facility] [address] [place] [address] Apr, Other chronic pain G89.[address] [facility] [address] [place] [address] Apr, [facility] [address] [place] [id number] 15 Apr, 2018 Asymptomatic human immunodeficiency viru s (HIV) infection status Z21 ; Other chronic pain G89.29 and Screening for cardiovascular condition Z13.6 [facility] [address] [place] [address] Apr, [facility] [address] [place] [address] Apr, [facility] [address] [place] [address] Apr, [facility] [address] [place] [address] Apr, Other chronic pain G89.29 [facility] [address] [place] [address] Mar, Loss of appetite R63.0 [facility] [address] [place] [address] Mar, [facility] [address] [place] [address] Mar, [facility] [address] [place] [address] Mar, [facility] [address] [place] [address] Mar, [facility] [address] [place] [address] Mar, Other chronic pain G89.29 [facility] [address] [place] [address] Mar, [facility] [address] [place] [address] Mar, [facility] [address] [place] [address] Mar, [facility] [address] [place] [address] Mar, Other chronic pain G89.29 [facility] [address] [facility] [place] [id number] Mar, Asymptomatic human immunodeficiency viru s (HIV) infection status Z21 [facility] [address] [place] [address] Mar, Other chronic pain G89.29 [facility] [address] [place] [address] Mar, [facility] [address] [place] [address] Mar, [facility] [address] [place] [address] Feb, Other chronic pain G89.29 [facility] [address] [place] [address] Feb, Other chronic pain G89.29 [facility] [address] [facility] [place] [id number] Feb, Other chronic pain G89.29 [facility] [address] [place] [id number] Feb, Asymptomatic human immunodeficiency viru s (HIV) infection status Z21 and Other chronic pain G89.29 [facility] [address] [place] [address] Jan, Other chronic pain G89.[address] [facility] [address] [place] [address] Jan, Other chronic pain G89.29 [facility] [address] [place] [address] Jan, Asymptomatic human immunodeficiency viru s (HIV) infection status Z21 [facility] [address] [place] [address] Jan, Other chronic pain G89.29 [facility] [address] [place] [address] Jan, [address] [address] Dec, Other chronic pain G89.[address] [address] Dec, Other chronic pain G89.29 [facility] [address] [id number] Nov, Asymptomatic human immunodeficiency viru s (HIV) infection status Z21 ; Influenza vaccine needed Z23 and Other chronic pain G89.[address] [address] 05 Nov, 2017 Other chronic pain G89.[address] [address] Oct, [address] [address] Oct, Other chronic pain G89.[address] [address] Oct, [address] [id number] Sep, Asymptomatic human immunodeficiency viru s (HIV) infection status Z21 ; Other chronic pain G89.29 and Generalized anxiety disorder F41.[address] [address] Jun, [address] [address] Jun, [address] [address] Jun, [address] [id number] Jun, Asymptomatic human immunodeficiency viru s (HIV) infection status Z21 ; Need for pneumococcal vaccine Z23 ; Major depressive disorder, recurrent, moderate F33.1 ; Loss of appetite R63.0 ; Other chronic pain G89.29 ; Other and unspecified noninfectious gastroenteritis and colitis K52.9 and Nausea R11.[address] [address] Jun, [facility] [address] [place] [facility] [address] Jun, Acute right ankle pain M25.571 [facility] [address] [place] [facility] [address] May, [facility] [address] [place] [facility] [address] May, Acute right ankle pain M25.571 [facility] [address] [place] [facility] [address] Apr, [facility] [address] [place] [facility] [address] Apr, [facility] [address] [place] [facility] [address] Mar, Acute right ankle pain M25.571 [facility] [address] [place] [address] Mar, [facility] [address] [place] [facility] [address] Mar, [facility] [address] [place] [address] Mar, [facility] [address] [place] [address] Mar, [facility] [address] [place] [address] Mar, [facility] [address] [place] [address] Mar, Nausea and vomiting, intractability of v omiting not specified, unspecified vomiting type R11.2 [facility] [address] [place] [address] Mar, [facility] [address] [place] [address] Mar, Loss of appetite R63.0 [facility] [address] [place] [facility] [address] Mar, [facility] [address] [place] [address] Mar, [facility] [address] [place] [address] Mar, [facility] [address] [place] [address] Feb, Abscess L02.91 [facility] [address] [place] [address] Feb, Acute right ankle pain M25.[address] [facility] [address] [place] [address] Feb, [facility] [address] [place] [address] Feb, [facility] [address] [place] [address] Feb, [facility] [address] [place] [address] Feb, Acute right ankle pain M25.571 [facility] [address] [place] [address] Feb, Abscess L02.91 [facility] [address] [place] [id number] Jan, Asymptomatic human immunodeficiency viru s (HIV) infection status Z21 ; Influenza vaccine needed Z23 and Acute right ankle pain M25.571 [facility] [address] [place] [address] Jan, Abscess L02.91 [facility] [address] [place] [address] Nov, [facility] [address] [place] [address] Nov, Abscess L02.91 [facility] [address] [place] [address] Nov, Anxiety F41.9 [facility] [address] [place] [address] Nov, Acute right ankle pain M25.571 [facility] [address] [place] [address] Nov, [facility] [address] [place] [address] 14 Nov, 2016 [facility] [address] [place] [facility] [address] 14 Nov, 2016 Hiccups R06.6 [facility] [address] [place] [facility] [address] 13 Nov, 2016 [facility] [address] [place] [facility] [address] 08 Nov, 2016 [facility] [address] [place] [facility] [address] Nov, [facility] [address] [place] [facility] [place] [address] Nov, [facility] [address] [place] [facility] [address] Nov, [facility] [address] [place] [facility] [address] Nov, [facility] [address] [place] [facility] [address] Oct, [facility] [address] [place] [facility] [address] Oct, [facility] [address] [place] [facility] [address] Oct, [facility] [address] [place] [facility] [address] Oct, Abscess L02.91 [facility] [address] [place] [facility] [address] Oct, [facility] [address] [place] [facility] [address] Oct, [facility] [address] [place] [facility] [address] Oct, [facility] [address] [place] [facility] [address] Oct, Abscess L02.91 and Acute right ankle ta n M25.571 [facility] [address] [place] [facility] [address] Oct, [facility] [address] [place] [facility] [address] Oct, [facility] [address] [place] [address] Oct, Abscess L02.[address] [facility] [address] [place] [address] Oct, [facility] [address] [place] [address] Oct, [facility] [address] [place] [id number] Oct, Asymptomatic human immunodeficiency viru s (HIV) infection status Z21 ; group home current use of opiate analgesic Z79.891 ; Nicotine dependence, cigarettes, uncomplicated F17.210 ; Iron deficiency anemia due to chronic blood loss D50.0 ; GERD with esophagitis K21.0 ; Major depressive disorder, recurrent, moderate F33.1 and Generalized anxiety disorder F41.1 [facility] [address] [place] [address] Sep, Major depressive disorder, recurrent, mo derate F33.[address] [facility] [address] [place] [address] Sep, [facility] [address] [place] [address] Sep, [facility] [address] [place] [address] Sep, [facility] [address] [place] [address] Sep, [facility] [address] [place] [address] Sep, [facility] [address] [place] [address] Aug, [facility] [address] [place] [address] Aug, [facility] [address] [place] [address], [place] [address] Aug, [facility] [address] [place] [address] Aug, Loss of appetite R63.0 ; Major depressiv e disorder, recurrent, moderate F33.1 and Functional diarrhea K59.1 [facility] [address] Aug, Acute hemorrhoid K64.9 and Other osteoar thritis involving multiple joints M15.[address] [address] Aug, Abscess L02.[address] [address] July, Chronic diarrhea K52.[address] [address] July, [facility] [address] [place] [phone] July, Asymptomatic human immunodeficiency viru s (HIV) infection status Z21 ; Nicotine dependence, cigarettes, uncomplicated F17.210 ; Chronic diarrhea K52.9 ; Abscess L02.91 ; GERD with esophagitis K21.0 ; Anxiety F41.9 and 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 [address] Jun, Pain in joint involving multiple sites M 25.[address] [address] Jun, [address] [address] Jun, Pain in joint involving multiple sites M 25.[address] [address] Jun, Pain in joint involving multiple sites M 25.50 ; GERD with esophagitis K21.0 and Intractable hiccups R06.[address] [address] May, Pain in joint involving multiple sites M 25.[address] [address] Apr, Pain in joint involving multiple sites M 25.50 and Anxiety F41.[address] [address] Apr, [address] [address] 10 Apr, 2016 Chronic diarrhea K52.9 and Pain in joint involving multiple sites M25.50 [facility] [address] [place] [id number] 10 Apr, 2016 Asymptomatic human immunodeficiency viru s (HIV) infection status Z21 ; Mild intermittent asthma without complication J45.20 ; Iron deficiency anemia due to chronic blood loss D50.0 ; Screening, lipid Z13.220 ; Chronic diarrhea K52.9 ; Abscess L02.91 and Projectile vomiting with nausea R11.[address] [address] Feb, Acute hemorrhoid K64.[address] [address] Jan, [address] [address] Jan, Nausea and vomiting, intractability of v omiting not specified, unspecified vomiting type R11.2 and Acute right ankle pain M25.[address] [address] Jan, [address] [address] 09 Jan, 2016 Asymptomatic human immunodeficiency viru s (HIV) infection status Z21 ; Iron deficiency anemia due to chronic blood loss D50.0 and Generalized abdominal pain R10.[address] [id number] Dec, Asymptomatic human immunodeficiency viru s (HIV) infection status Z21 ; Mild intermittent asthma without complication J45.20 ; Influenza vaccine needed Z23 and Nicotine dependence, cigarettes, uncomplicated F17.210 [facility] [address] [facility] [address] [place] [id number] 2 Oct, [facility] [address] [facility] [address] [place] [id number] 2 Oct, [address] [address] 08 May, [address] [address] 14 Feb, 2012 [facility] [address] [place] [address] Nov, [facility] [address] [place] [address] Aug, [facility] [address] [place] [address] Apr, [facility] [address] [facility] [address] [place], [place] [id number] 1 8 Jan, 2011 IMMUNIZATIONS No Known [...]
--- OUTSIDE RECORDS SUMMARY | 2019-07-04 11:59 | XMS REPORT ---
Author Author Sergio Adams 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 20 Active 829204559 Problem Iron deficiency anemia due to chronic blood loss D 50.0 Active 52371207 Problem Other osteoarthritis involving multiple joints M15 .8 Active 366505333 Problem Asymptomatic human immunodeficiency virus (HIV) infect ion status Z21 Active 81430975 Problem Other and unspecified noninfectious gastroenteritis an d colitis K52.9 Active 70691618 Problem Nicotine dependence, cigarettes, uncomplicated F17 .210 Active 99636928 Problem Other chronic pain G89.29 Active 8 0529356 Problem Generalized anxiety disorder F41.1 A ctive 61488251 Problem GERD with esophagitis K21.0 Active 523795140 Problem Functional diarrhea K59.1 Active 61132104 Problem Major depressive disorder, recurrent, moderate F33 .1 Active 602329417 Problem Loss of appetite R63.0 Active 798 36564 ALLERGIES No Information ENCOUNTERS Encounter Location Date Diagnosis [facility] [address] [place], [place] [id number] Jan, [facility] [address] [place] [address] Dec, Other chronic pain G89.[address] [facility] [address] [place] [address] Nov, Other chronic pain G89.[address] [facility] [address] [place] [address] Nov, Other chronic pain G89.[address] [facility] [address] [place] [address] Oct, Other chronic pain G89.29 [facility] [address] [place] [address] Oct, Other chronic pain G89.29 [facility] [address] [place] [address] Oct, Other chronic pain G89.29 [facility] [address] [place] [address] Oct, Other chronic pain G89.29 [facility] [address] [place] [address] Sep, Other chronic pain G89.[address] [facility] [address] [place] [address] Sep, Other chronic pain G89.29 [facility] [address] [place], [place] [id number] Sep, Asymptomatic human immunodeficiency viru s (HIV) infection status Z21 and GERD with esophagitis K21.[address] [facility] [address] [place] [address] Sep, [facility] [address] [place] [address] Sep, Loss of appetite R63.0 and Other chronic pain G89.[address] [facility] [address] [place] [address] Sep, Other chronic pain G89.[address] [facility] [address] [place] [address] Aug, Other chronic pain G89.29 [facility] [address] [place] [address] Aug, Other chronic pain G89.29 [facility] [address] [place] [address] July, Other chronic pain G89.29 [facility] [address] [place] [address] July, [facility] [address] [place] [address] July, [facility] [address] [place] [address] July, Other chronic pain G89.29 [facility] [address] [facility] [address] July, [facility] [address] [facility] [address] July, Other chronic pain G89.29 [facility] [address] [facility] [address] Jun, [facility] [address] [facility] [address] Jun, Other chronic pain G89.29 [facility] [address] [facility] [address] Jun, [facility] [address] [facility] [address] Jun, Other chronic pain G89.29 [facility] [address] [facility] [address] May, Other chronic pain G89.29 [facility] [address] [facility] [address] May, [facility] [address] [facility] [address] May, [facility] [address] [facility] [address] May, [facility] [address] [facility] [address] May, [facility] [address] [facility] [address] May, [facility] [address] [facility] [address] Apr, [facility] [address] [facility] [address] Apr, [facility] [address] [facility] [address] Apr, [facility] [address] [facility] [address] Apr, [facility] [address] [facility] [address] Apr, [facility] [address] [facility] [address] Apr, [facility] [address] [facility] [place] [address] Apr, [facility] [address] [facility] [address] Apr, [facility] [address] [facility] [place] [address] Apr, [facility] [address] [facility] [place] [address] Apr, Other chronic pain G89.29 [facility] [address] [facility] [place] [address] Apr, [facility] [address] [place], [place] [id number] Apr, Asymptomatic human immunodeficiency viru s (HIV) infection status Z21 ; Other chronic pain G89.29 and Screening for cardiovascular condition Z13.6 [facility] [address] [facility] [place] [address] Apr, [facility] [address] [place] [address] Apr, [facility] [address] [place] [address] Apr, [facility] [address] [place] [address] Apr, Other chronic pain G89.29 [facility] [address] [facility] [place] [address] Mar, Loss of appetite R63.0 [facility] [address] [place] [address] Mar, [facility] [address] [facility] [place] [address] Mar, [facility] [address] [place] [address] Mar, [facility] [address] [place] [address] Mar, [facility] [address] [place] [address] Mar, Other chronic pain G89.[address] [facility] [address] [place] [address] Mar, [facility] [address] [place] [address] Mar, [facility] [address] [place] [address] Mar, [facility] [address] [place] [address] Mar, Other chronic pain G89.29 [facility] [address] [facility] [place] [id number] Mar, Asymptomatic human immunodeficiency viru s (HIV) infection status Z21 [facility] [address] [place] [address] Mar, Other chronic pain G89.29 [facility] [address] [place] [address] Mar, [facility] [address] [place] [address] Mar, [facility] [address] [place] [address] Feb, Other chronic pain G89.[address] [facility] [address] [place] [address] Feb, Other chronic pain G89.29 [facility] [address] [facility] [place] [id number] Feb, Other chronic pain G89.29 [facility] [address] [place] [id number] Feb, Asymptomatic human immunodeficiency viru s (HIV) infection status Z21 and Other chronic pain G89.[address] [facility] [address] [place] [address] Jan, Other chronic pain G89.[address] [facility] [address] [place] [address] Jan, Other chronic pain G89.[address] [facility] [address] [place] [address] Jan, Asymptomatic human immunodeficiency viru s (HIV) infection status Z21 [facility] [address] [place] [address] Jan, Other chronic pain G89.[address] [facility] [address] [place] [address] Jan, [facility] [address] [place] [address] Dec, Other chronic pain G89.[address] [facility] [address] [place] [address] Dec, Other chronic pain G89.29 [facility] [address] [place] [id number] Nov, Asymptomatic human immunodeficiency viru s (HIV) infection status Z21 ; Influenza vaccine needed Z23 and Other chronic pain G89.[address] [address] Nov, Other chronic pain G89.[address] [facility] [address] [place] [address] Oct, [facility] [address] [place] [address] Oct, Other chronic pain G89.[address] [facility] [address] [place] [address] Oct, [address] [id number] Sep, Asymptomatic human immunodeficiency viru s (HIV) infection status Z21 ; Other chronic pain G89.29 and Generalized anxiety disorder F41.[address] [facility] [address] [place] [address] Jun, [facility] [address] [place] [address] Jun, [facility] [address] [place] [address] Jun, [facility] [address] [place] [id number] Jun, Asymptomatic human immunodeficiency viru s (HIV) infection status Z21 ; Need for pneumococcal vaccine Z23 ; Major depressive disorder, recurrent, moderate F33.1 ; Loss of appetite R63.0 ; Other chronic pain G89.29 ; Other and unspecified noninfectious gastroenteritis and colitis K52.9 and Nausea R11.0 [facility] [address] [place] [address], [place] [address] Jun, [facility] [address] [place] [address] Jun, Acute right ankle pain M25.571 [facility] [address] [place] [address], [place] [address] May, [facility] [address] [place] [address], [place] [address] May, Acute right ankle pain M25.571 [facility] [address] [place] [address], [place] [address] Apr, [facility] [address] [place] [address] Apr, [facility] [address] [place] [address] Mar, Acute right ankle pain M25.571 [facility] [address] [address] Mar, [facility] [address] [place] [address] Mar, [facility] [address] [place] [address] Mar, [facility] [address] [place] [address] Mar, [facility] [address] [place] [address] Mar, [facility] [address] [place] [address] Mar, Nausea and vomiting, intractability of v omiting not specified, unspecified vomiting type R11.2 [facility] [address] [place] [address] Mar, [facility] [address] [place] [address] Mar, Loss of appetite R63.0 [facility] [address] [facility] [place] [address] Mar, [facility] [address] [place] [address] Mar, [facility] [address] [place] [address] Mar, [facility] [address] [place] [address] Feb, Abscess L02.91 [facility] [address] [place] [address] Feb, Acute right ankle pain M25.571 [facility] [address] [place] [address] Feb, [facility] [address] [place] [address] Feb, [facility] [address] [place] [address] Feb, [facility] [address] [place] [address] Feb, Acute right ankle pain M25.[address] [facility] [address] [place] [address] Feb, Abscess L02.91 [facility] [address] [place] [id number] Jan, Asymptomatic human immunodeficiency viru s (HIV) infection status Z21 ; Influenza vaccine needed Z23 and Acute right ankle pain M25.571 [facility] [address] [place] [address] Jan, Abscess L02.91 [facility] [address] [place] [address] Nov, [facility] [address] [place] [address] Nov, Abscess L02.[address] [facility] [address] [place] [address] Nov, Anxiety F41.9 [facility] [address] [place] [address] Nov, Acute right ankle pain M25.571 [facility] [address] [facility] [address] 15 Nov, 2016 [facility] [address] [facility] [address] 14 Nov, 2016 [facility] [address] [facility] [address] 14 Nov, 2016 Hiccups R06.6 [facility] [address] [facility] [address] 13 Nov, 2016 [facility] [address] [facility] [address] 08 Nov, 2016 [facility] [address] [facility] [address] 08 Nov, 2016 [facility] [address] [facility] [address] Nov, [facility] [address] [facility] [address] Nov, [facility] [address] [facility] [address] 05 Nov, 2016 [facility] [address] [facility] [address] Oct, [facility] [address] [facility] [address] Oct, [facility] [address] [facility] [address] Oct, [facility] [address] [facility] [address] Oct, Abscess L02.91 [facility] [address] [facility] [address] Oct, [facility] [address] [facility] [address] Oct, [facility] [address] [facility] [address] Oct, [facility] [address] [facility] [address] Oct, Abscess L02.91 and Acute right ankle ta n M25.571 [facility] [address] [place] [address] Oct, [facility] [address] [place] [address] Oct, [facility] [address] [place] [address] Oct, Abscess L02.91 [facility] [address] [place] [address] Oct, [facility] [address] [place] [address] Oct, [facility] [address] [place], [place] [id number] Oct, Asymptomatic human immunodeficiency viru s (HIV) infection status Z21 ; 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 ; Nicotine dependence, cigarettes, uncomplicated F17.210 ; Iron deficiency anemia due to chronic blood loss D50.0 ; GERD with esophagitis K21.0 ; Major depressive disorder, recurrent, moderate F33.1 and Generalized anxiety disorder F41.1 [facility] [address] [place] [address] Sep, Major depressive disorder, recurrent, mo derate F33.1 [facility] [address] [facility] [place] [address] Sep, [facility] [address] [place] [address] Sep, [facility] [address] [place] [address] Sep, [facility] [address] [place] [address] Sep, [facility] [address] [place] [address] Sep, [facility] [address] [place] [address] Aug, [facility] [address] [place] [address] Aug, [facility] [address] [place] [address] Aug, [address] [address] Aug, Loss of appetite R63.0 ; Major depressiv e disorder, recurrent, moderate F33.1 and Functional diarrhea K59.[address] [address] Aug, Acute hemorrhoid K64.9 and Other osteoar thritis involving multiple joints M15.[address] [address] Aug, Abscess L02.[address] [address] July, Chronic diarrhea K52.[address] [address] July, [facility] [address] [place] [id number] July, Asymptomatic human immunodeficiency viru s (HIV) infection status Z21 ; Nicotine dependence, cigarettes, uncomplicated F17.210 ; Chronic diarrhea K52.9 ; Abscess L02.91 ; GERD with esophagitis K21.0 ; Anxiety F41.9 and 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 [address] Jun, Pain in joint involving multiple sites M 25.[address] [address] Jun, [address] [address] Jun, Pain in joint involving multiple sites M 25.[address] [address] Jun, Pain in joint involving multiple sites M 25.50 ; GERD with esophagitis K21.0 and Intractable hiccups R06.[address] [address] May, Pain in joint involving multiple sites M 25.[address] [address] Apr, Pain in joint involving multiple sites M 25.50 and Anxiety F41.[address] [address] 17 Apr, [address] [address] Apr, Chronic diarrhea K52.9 and Pain in joint involving multiple sites M25.[address] [id number] 10 Apr, 2016 Asymptomatic human immunodeficiency viru s (HIV) infection status Z21 ; Mild intermittent asthma without complication J45.20 ; Iron deficiency anemia due to chronic blood loss D50.0 ; Screening, lipid Z13.220 ; Chronic diarrhea K52.9 ; Abscess L02.91 and Projectile vomiting with nausea R11.[address] [address] Feb, Acute hemorrhoid K64.[address] [address] Jan, [address] [address] Jan, Nausea and vomiting, intractability of v omiting not specified, unspecified vomiting type R11.2 and Acute right ankle pain M25.[address] [address] Jan, [address] [address] 09 Jan, 2016 Asymptomatic human immunodeficiency viru s (HIV) infection status Z21 ; Iron deficiency anemia due to chronic blood loss D50.0 and Generalized abdominal pain R10.[address] [id number] Dec, Asymptomatic human immunodeficiency viru s (HIV) infection status Z21 ; Mild intermittent asthma without complication J45.20 ; Influenza vaccine needed Z23 and Nicotine dependence, cigarettes, uncomplicated F17.210 [facility] [address] [facility] [address] [place] [id number] 2 Oct, [facility] [address] [facility] [address] [place] [id number] 2 Oct, [facility] [address] [place] [address] May, [facility] [address] [place] [address] Feb, [facility] [address] [place] [address] Nov, [facility] [address] [place] [address] Aug, [facility] [address] [place] [address] Apr, [facility] [address] [facility] [address] [place], [place] [id number] 1 Jan, IMMUNIZATIONS No Known Immunizations SOCIAL [...]
--- OUTSIDE RECORDS SUMMARY | 2019-07-04 12:00 | XMS REPORT ---
Author Author Sergio Li [facility] Address [address] [place], [place] [id number] Care Team Providers Care Photo Lab Manager Name Role Phone Shana Li Unavailable PROBLEMS Type Condition ICD9-CM Code FSK12-WG Code Onset Dates Condition S tatus SNOMED Code Problem Mild intermittent asthma without complication J45. 20 Active 914669068 Problem Iron deficiency anemia due to chronic blood loss D 50.0 Active 80562424 Problem Other osteoarthritis involving multiple joints M15 .8 Active 262426986 Problem Asymptomatic human immunodeficiency virus (HIV) infect ion status Z21 Active 55681502 Problem Other and unspecified noninfectious gastroenteritis an d colitis K52.9 Active 28901283 Problem Nicotine dependence, cigarettes, uncomplicated F17 .210 Active 40263560 Problem Other chronic pain G89.29 Active 8 0625546 Problem Generalized anxiety disorder F41.1 A ctive 80687697 Problem GERD with esophagitis K21.0 Active 319310479 Problem Functional diarrhea K59.1 Active 11363305 Problem Major depressive disorder, recurrent, moderate F33 .1 Active 687649197 Problem Loss of appetite R63.0 Active 798 53461 ALLERGIES No Information ENCOUNTERS Encounter Location Date Diagnosis Formerly [facility] [address] [place] [address] Oct, Other chronic pain G89.[address] [address] Sep, Other chronic pain G89.[address] [address] Sep, Other chronic pain G89.29 [facility] [address] [place] [address] [place] [id number] Sep, Asymptomatic human immunodef iciency virus (HIV) infection status Z21 and GERD with esophagitis K21.0 Formerly [facility] [address] [place] [facility] [place] [address] Sep, [facility] [address] [place] [facility] [place] [address] Sep, Loss of appetite R63.0 and Other chronic pain G89.29 [facility] [address] [place] [facility] [place] [address] Sep, Other chronic pain G89.29 [facility] [address] [place] [facility] [place] [address] Aug, Other chronic pain G89.29 [facility] [address] [place] [facility] [place] [address] Aug, Other chronic pain G89.29 [facility] [address] [place] [address] July, Other chronic pain G89.29 [facility] [address] [place] [facility] [place] [address] July, [facility] [address] [place] [address] July, [facility] [address] [place] [address] July, Other chronic pain G89.29 [facility] [address] [place] [address] July, [facility] [address] [place] [address] July, Other chronic pain G89.29 [facility] [address] [place] [address] Jun, [facility] [address] [place] [address] Jun, Other chronic pain G89.29 [facility] [address] [place] [address] Jun, [facility] [address] [place] [address] Jun, Other chronic pain G89.29 [facility] [address] [place] [address] May, Other chronic pain G89.29 [facility] [address] [place] [address] May, [facility] [address] [place] [address] May, [facility] [address] [place] [address] May, [facility] [address] [place] [facility] [place] [address] May, [facility] [address] [place] [facility] [place] [address] May, [facility] [address] [place] [facility] [place] [address] Apr, [facility] [address] [place] [address] Apr, [facility] [address] [place] [facility] [place] [address] Apr, [facility] [address] [place] [facility] [place] [address] Apr, [facility] [address] [place] [facility] [place] [address] Apr, [facility] [address] [place] [address] Apr, [facility] [address] [place] [facility] [place] [address] Apr, [facility] [address] [place] [facility] [place] [address] Apr, [facility] [address] [place] [facility] [place] [address] Apr, [facility] [address] [place] [address] Apr, Other chronic pain G89.29 [facility] [address] [place] [address] Apr, [facility] [address] [place] [id number] 15 Apr, 2018 Asymptomatic human immunodef iciency virus (HIV) infection status Z21 ; Other chronic pain G89.29 and Screening for cardiovascular condition Z13.6 [facility] [address] [place] [address] 14 Apr, 2018 [facility] [address] [place] [address] Apr, [facility] [address] [place] [address] Apr, [facility] [address] [place] [address] Apr, Other chronic pain G89.29 [facility] [address] [place] [address] Mar, Loss of appetite R63.0 [facility] [address] [place] [address] Mar, [facility] [address] [place] [address] Mar, [facility] [address] [place] [address] Mar, [facility] [address] [place] [address] Mar, [facility] [address] [place] [address] Mar, Other chronic pain G89.29 [facility] [address] [place] [address] Mar, [facility] [address] [place] [address] Mar, [facility] [address] [place] [address] Mar, [facility] [address] [place] [address] Mar, Other chronic pain G89.29 [facility] [address] [place] [address], S [phone] Mar, Asymptomatic human immunodeficiency viru s (HIV) infection status Z21 [facility] [address] [place] [address] Mar, Other chronic pain G89.29 [facility] [address] [place] [address] Mar, [facility] [address] [place] [address] Mar, [facility] [address] [place] [address] Feb, Other chronic pain G89.29 [facility] [address] [place] [address] Feb, Other chronic pain G89.29 [facility] [address] [facility] [place] [id number] Feb, Other chronic pain G89.29 [facility] [address] [place] [id number] Feb, Asymptomatic human immunodef iciency virus (HIV) infection status Z21 and Other chronic pain G89.29 [facility] [address] [place] [address] Jan, Other chronic pain G89.29 [facility] [address] [place] [address] Jan, Other chronic pain G89.29 [facility] [address] [place] [address] Jan, Asymptomatic human immunodeficiency viru s (HIV) infection status Z21 [facility] [address] [place] [address] Jan, Other chronic pain G89.29 [facility] [address] [place] [address] Jan, [facility] [address] [place] [address] Dec, Other chronic pain G89.29 [facility] [address] [place] [address] Dec, Other chronic pain G89.29 [facility] [address] [place] [phone] Nov, Asymptomatic human immunodef iciency virus (HIV) infection status Z21 ; Influenza vaccine needed Z23 and Other chronic pain G89.29 [facility] [address] [place] [address] Nov, Other chronic pain G89.29 [facility] [address] [place] [address] Oct, [facility] [address] [place] [address] Oct, Other chronic pain G89.29 [facility] [address] [place] [address] Oct, [address] [id number] Sep, Asymptomatic human immunodef iciency virus (HIV) infection status Z21 ; Other chronic pain G89.29 and Generalized anxiety disorder F41.[address] [address] Jun, [facility] [address] [place] [address] Jun, [address] [address] Jun, [address] [id number] Jun, Asymptomatic human immunodef iciency virus (HIV) infection status Z21 ; Need for pneumococcal vaccine Z23 ; Major depressive disorder, recurrent, moderate F33.1 ; Loss of appetite R63.0 ; Other chronic pain G89.29 ; Other and unspecified noninfectious gastroenteritis and colitis K52.9 and Nausea R11.[address] [address] Jun, [facility] [address] [place] [address] Jun, Acute right ankle pain M25.[address] [address] May, [facility] [address] [place] [address] May, Acute right ankle pain M25.[address] [address] Apr, [address] [place] [address] Apr, [facility] [address] [place] [facility] [place] [address] Mar, Acute right ankle pain M25.571 [facility] [address] [place] [facility] [place] [address] Mar, [facility] [address] [place] [facility] [place] [address] Mar, [facility] [address] [place] [facility] [place] [address] Mar, [facility] [address] [place] [facility] [place] [address] Mar, [facility] [address] [place] [facility] [place] [address] Mar, [facility] [address] [place] [facility] [place] [address] Mar, Nausea and vomiting, intractability of v omiting not specified, unspecified vomiting type R11.2 [facility] [address] [place] [facility] [place] [address] Mar, [facility] [address] [place] [address] Mar, Loss of appetite R63.0 [facility] [address] [place] [address] Mar, [facility] [address] [place] [address] Mar, [facility] [address] [place] [facility] [place] [facility] [address] Mar, [facility] [address] [place] [address] Feb, Abscess L02.91 [facility] [address] [place] [address] Feb, Acute right ankle pain M25.571 [facility] [address] [place] [facility] [place] [address] Feb, [facility] [address] [place] [address] Feb, [facility] [address] [place] [address] Feb, [facility] [address] [place] [address] Feb, Acute right ankle pain M25.571 [facility] [address] [place] [address] Feb, Abscess L02.91 [facility] [address] [place] [address] [place] [id number] Jan, Asymptomatic human immunodef iciency virus (HIV) infection status Z21 ; Influenza vaccine needed Z23 and Acute right ankle pain M25.571 [facility] [address] [place] [address] Jan, Abscess L02.91 [facility] [address] [place] [address] Nov, [facility] [address] [place] [address] Nov, Abscess L02.91 [facility] [address] [place] [address] Nov, Anxiety F41.9 [facility] [address] [place] [address] Nov, Acute right ankle pain M25.571 [facility] [address] [place] [address] 15 Nov, 2016 [facility] [address] [place] [address] 14 Nov, 2016 [facility] [address] [place] [address] 14 Nov, 2016 Hiccups R06.6 [facility] [address] [place] [address] 13 Nov, 2016 [facility] [address] [place] [address] 08 Nov, 2016 [facility] [address] [place] [address] Nov, [facility] [address] [place] [address] Nov, [facility] [address] [place] [facility] [place] [address] Nov, [facility] [address] [place] [facility] [place] [address] Nov, [facility] [address] [place] [facility] [place] [address] Oct, [facility] [address] [place] [facility] [place] [address] Oct, [facility] [address] [place] [facility] [place] [address] Oct, [facility] [address] [place] [facility] [place] [address] Oct, Abscess L02.91 [facility] [address] [place] [facility] [place] [address] Oct, [facility] [address] [place] [facility] [place] [address] Oct, [facility] [address] [place] [facility] [place] [address] Oct, [facility] [address] [place] [facility] [place] [address] Oct, Abscess L02.91 and Acute right ankle ta n M25.571 [facility] [address] [place] [facility] [place] [address] Oct, [facility] [address] [place] [facility] [place] [address] Oct, [facility] [address] [place] [facility] [place] [address] Oct, Abscess L02.91 [facility] [address] [place] [facility] [place] [address] Oct, [facility] [address] [place] [facility] [place] [address] Oct, [facility] [address] [place] [phone] Oct, Asymptomatic human immunodef iciency virus (HIV) infection status Z21 ; 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 ; Nicotine dependence, cigarettes, uncomplicated F17.210 ; Iron deficiency anemia due to chronic blood loss D50.0 ; GERD with esophagitis K21.0 ; Major depressive disorder, recurrent, moderate F33.1 and Generalized anxiety disorder F41.1 [facility] [address] [place] [address] Sep, Major depressive disorder, recurrent, mo derate F33.1 [facility] [address] [place] [address] Sep, [facility] [address] [place] [address] Sep, [facility] [address] [place] [address] Sep, [facility] [address] [place] [address] Sep, [facility] [address] [place] [address] Sep, [facility] [address] [place] [address] Aug, [facility] [address] [place] [address] Aug, [facility] [address] [place] [address] Aug, [facility] [address] [place] [address] Aug, Loss of appetite R63.0 ; Major depressiv e disorder, recurrent, moderate F33.1 and Functional diarrhea K59.1 [facility] [address] [place] [address] Aug, Acute hemorrhoid K64.9 and Other osteoar thritis involving multiple joints M15.8 [facility] [address] [place] [address] Aug, Abscess L02.91 [facility] [address] [place] [address] July, Chronic diarrhea K52.9 [facility] [address] [place] [address] July, [facility] [address] [id number] July, Asymptomatic human immunodef iciency virus (HIV) infection status Z21 ; Nicotine dependence, cigarettes, uncomplicated F17.210 ; Chronic diarrhea K52.9 ; Abscess L02.91 ; GERD with esophagitis K21.0 ; Anxiety F41.9 and 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 [address] Jun, Pain in joint involving multiple sites M 25.[address] [address] Jun, [address] [address] Jun, Pain in joint involving multiple sites M 25.[address] [address] Jun, Pain in joint involving multiple sites M 25.50 ; GERD with esophagitis K21.0 and Intractable hiccups R06.[address] [address] May, Pain in joint involving multiple sites M 25.[address] [address] Apr, Pain in joint involving multiple sites M 25.50 and Anxiety F41.[address] [address] Apr, [address] [address] Apr, Chronic diarrhea K52.9 and Pain in joint involving multiple sites M25.50 [facility] [address] [id number] Apr, Asymptomatic human immunodef iciency virus (HIV) infection status Z21 ; Mild intermittent asthma without complication J45.20 ; Iron deficiency anemia due to chronic blood loss D50.0 ; Screening, lipid Z13.220 ; Chronic diarrhea K52.9 ; Abscess L02.91 and Projectile vomiting with nausea R11.[address] [address] Feb, Acute hemorrhoid K64.9 [facility] [address] [place] [address] Jan, [facility] [address] [place] [address] Jan, Nausea and vomiting, intractability of v omiting not specified, unspecified vomiting type R11.2 and Acute right ankle pain M25.571 [facility] [address] [place] [address] Jan, [facility] [address] [place] [address] 09 Jan, 2016 Asymptomatic human immunodeficiency viru s (HIV) infection status Z21 ; Iron deficiency anemia due to chronic blood loss D50.0 and Generalized abdominal pain R10.84 [facility] [address] [place] [id number] Dec, Asymptomatic human immunodef iciency virus (HIV) infection status Z21 ; Mild intermittent asthma without complication J45.20 ; Influenza vaccine needed Z23 and Nicotine dependence, cigarettes, uncomplicated F17.210 [facility] [address] [place], [place] [id number] 2 9 Oct, 2013 [facility] [address] [id number] 2 8 Oct, 2013 [facility] [address] [place] [address] 08 May, 2012 [facility] [address] [place] [address] Feb, [facility] [address] [place] [address] 14 Nov, 2011 [facility] [address] [place] [address] Aug, [facility] [address] [place] [address] Apr, [facility] [address] [facility] [address] [place] [phone] Jan, IMMUNIZATIONS No Known Immunizations SOCIAL [...]
--- OUTSIDE RECORDS SUMMARY | 2019-07-04 12:00 | XMS REPORT ---
Author Author Sergio Li Organization [facility] Address [address] [place] [phone] Care Team Providers Care Director [employer] Name Role Phone Shana Li Unavailable PROBLEMS Type Condition ICD9-CM Code VXR03-TT Code Onset Dates Condition S tatus SNOMED Code Problem Mild intermittent asthma without complication J45. 20 Active 367277471 Problem Iron deficiency anemia due to chronic blood loss D 50.0 Active 40338848 Problem Other osteoarthritis involving multiple joints M15 .8 Active 947440619 Problem Asymptomatic human immunodeficiency virus (HIV) infect ion status Z21 Active 97156028 Problem Other and unspecified noninfectious gastroenteritis an d colitis K52.9 Active 90421425 Problem Nicotine dependence, cigarettes, uncomplicated F17 .210 Active 85336354 Problem Other chronic pain G89.29 Active 8 3714025 Problem Generalized anxiety disorder F41.1 A ctive 91153458 Problem GERD with esophagitis K21.0 Active 404405059 Problem Functional diarrhea K59.1 Active 49834282 Problem Major depressive disorder, recurrent, moderate F33 .1 Active 435078331 Problem Loss of appetite R63.0 Active [id number] ALLERGIES No Information ENCOUNTERS Encounter Location Date Diagnosis [address] [address] Sep, Other chronic pain G89.29 [facility] [address] [place] [address] [place] [id number] Sep, Asymptomatic human immunodef iciency virus (HIV) infection status Z21 and GERD with esophagitis K21.[address] [address] Sep, [address] [address] Sep, Loss of appetite R63.0 and Other chronic pain G89.[address] [place] [address] Sep, Other chronic pain G89.29 [facility] [address] [place] [facility] [address] Aug, Other chronic pain G89.29 [facility] [address] [place] [facility] [place] [address] Aug, Other chronic pain G89.29 [facility] [address] [place] [facility] [place] [address] July, Other chronic pain G89.29 [facility] [address] [place] [facility] [place] [address] July, [facility] [address] [place] [facility] [place] [address] July, [facility] [address] [place] [facility] [place] [address] July, Other chronic pain G89.29 [facility] [address] [place] [facility] [place] [address] July, [facility] [address] [place] [facility] [place] [address] July, Other chronic pain G89.29 [facility] [address] [place] [facility] [place] [address] Jun, [facility] [address] [place] [facility] [place] [address] Jun, Other chronic pain G89.29 [facility] [address] [place] [facility] [place] [address] Jun, [facility] [address] [place] [facility] [place] [address] Jun, Other chronic pain G89.29 [facility] [address] [place] [facility] [place] [address] May, Other chronic pain G89.29 [facility] [address] [place] [facility] [place] [address] May, [facility] [address] [place] [facility] [place] [address] May, [facility] [address] [place] [facility] [place] [address] May, [facility] [address] [place] [facility] [place] [address] May, [facility] [address] [place] [facility] [place] [address] May, [facility] [address] [place] [facility] [place] [address] Apr, [facility] [address] [place] [facility] [place] [address] Apr, [facility] [address] [place] [facility] [place] [address] Apr, [facility] [address] [place] [facility] [place] [address] Apr, [facility] [address] [place] [facility] [address] Apr, [facility] [address] [place] [facility] [place] [address] Apr, [facility] [address] [place] [facility] [place] [address] Apr, [facility] [address] [place] [facility] [place] [address] Apr, [facility] [address] [place] [facility] [place] [address] Apr, [facility] [address] [place] [facility] [place] [address] Apr, Other chronic pain G89.29 [facility] [address] [place] [facility] [place] [address] Apr, [facility] [address] [place] [id number] Apr, Asymptomatic human immunodef iciency virus (HIV) infection status Z21 ; Other chronic pain G89.29 and Screening for cardiovascular condition Z13.6 [facility] [address] [place] [facility] [place] [address] Apr, [facility] [address] [place] [facility] [place] [address] Apr, [facility] [address] [place] [facility] [place] [address] Apr, [facility] [address] [place] [facility] [place] [address] Apr, Other chronic pain G89.29 [facility] [address] [place] [facility] [place] [address] Mar, Loss of appetite R63.0 [facility] [address] [place] [facility] [place] [address] Mar, [facility] [address] [place] [facility] [place] [address] Mar, [facility] [address] [place] [facility] [place] [address] Mar, [facility] [address] [facility] [place] [address] Mar, [facility] [address] [facility] [place] [address] Mar, Other chronic pain G89.29 [facility] [address] [place] [facility] [address] Mar, [facility] [address] [facility] [place] [address] Mar, [facility] [address] [facility] [place] [address] Mar, [facility] [address] [facility] [place] [address] Mar, Other chronic pain G89.29 [facility] [address] [facility] [place] [id number] Mar, Asymptomatic human immunodeficiency viru s (HIV) infection status Z21 [facility] [address] [facility] [place] [address] Mar, Other chronic pain G89.29 [facility] [address] [facility] [place] [address] Mar, [facility] [address] [facility] [place] [address] Mar, [facility] [address] [facility] [place] [address] Feb, Other chronic pain G89.29 [facility] [address] [place] [address] Feb, Other chronic pain G89.29 [facility] [address] [place] [address] [place] [id number] Feb, Other chronic pain G89.29 [facility] [address] [place] [phone] Feb, Asymptomatic human immunodef iciency virus (HIV) infection status Z21 and Other chronic pain G89.29 [facility] [address] [place] [address] Jan, Other chronic pain G89.29 [facility] [address] [place] [address] Jan, Other chronic pain G89.29 [facility] [address] [place] [address] Jan, Asymptomatic human immunodeficiency viru s (HIV) infection status Z21 [facility] [address] [place] [address] Jan, Other chronic pain G89.29 [facility] [address] [place] [address] Jan, [facility] [address] [place] [address] Dec, Other chronic pain G89.29 [facility] [address] [place] [address] Dec, Other chronic pain G89.29 [facility] [address] [id number] Nov, Asymptomatic human immunodef iciency virus (HIV) infection status Z21 ; Influenza vaccine needed Z23 and Other chronic pain G89.29 [facility] [address] [place] [address] Nov, Other chronic pain G89.29 [facility] [address] [place] [address] Oct, [facility] [address] [place] [address] Oct, Other chronic pain G89.29 [facility] [address] [place] [address] Oct, [address] [id number] Sep, Asymptomatic human immunodef iciency virus (HIV) infection status Z21 ; Other chronic pain G89.29 and Generalized anxiety disorder F41.1 [facility] [address] [place] [address] Jun, [facility] [address] [place] [address] Jun, [facility] [address] [place] [address] Jun, [facility] [address] [phone] Jun, Asymptomatic human immunodef iciency virus (HIV) infection status Z21 ; Need for pneumococcal vaccine Z23 ; Major depressive disorder, recurrent, moderate F33.1 ; Loss of appetite R63.0 ; Other chronic pain G89.29 ; Other and unspecified noninfectious gastroenteritis and colitis K52.[address] [facility] [address] [place] [address] Jun, [facility] [address] [place] [address] Jun, Acute right ankle pain M25.571 [facility] [address] [address] May, [facility] [address] [place] [address] May, Acute right ankle pain M25.571 [facility] [address] [place] [address] Apr, [facility] [address] [place] [address] Apr, [facility] [address] [place] [address] Mar, Acute right ankle pain M25.571 [facility] [address] [place] [address] Mar, [facility] [address] [place] [facility] [address] Mar, [facility] [address] [place] [facility] [address] Mar, [facility] [address] [place] [facility] [address] Mar, [facility] [address] [place] [facility] [address] Mar, [facility] [address] [place] [facility] [address] Mar, Nausea and vomiting, intractability of v omiting not specified, unspecified vomiting type R11.2 [facility] [address] [place] [facility] [address] Mar, [facility] [address] [facility] [place] [address] Mar, Loss of appetite R63.0 [facility] [address] [place] [facility] [place] [address] Mar, [facility] [address] [facility] [place] [address] Mar, [facility] [address] [facility] [place] [address] Mar, [facility] [address] [facility] [place] [address] Feb, Abscess L02.91 [facility] [address] [facility] [place] [address] Feb, Acute right ankle pain M25.571 [facility] [address] [place] [facility] [address] Feb, [facility] [address] [place] [facility] [address] Feb, [facility] [address] [facility] [place] [address] Feb, [facility] [address] [facility] [place] [address] Feb, Acute right ankle pain M25.571 [facility] [address] [place] [address] Feb, Abscess L02.91 [facility] [address] [facility] [place] [id number] Jan, Asymptomatic human immunodef iciency virus (HIV) infection status Z21 ; Influenza vaccine needed Z23 and Acute right ankle pain M25.571 [facility] [address] [place] [address] Jan, Abscess L02.91 [facility] [address] [place] [address] Nov, [facility] [address] [place] [address] Nov, Abscess L02.91 [facility] [address] [place] [address] Nov, Anxiety F41.9 [facility] [address] [place] [address] Nov, Acute right ankle pain M25.571 [facility] [address] [place] [address] Nov, [facility] [address] [place] [address] Nov, [facility] [address] [place] [address] Nov, Hiccups R06.6 [facility] [address] [place] [address] Nov, [facility] [address] [place] [address] Nov, [facility] [address] [place] [address] Nov, [facility] [address] [place] [address] Nov, [facility] [address] [place] [address] Nov, [facility] [address] [place] [address] Nov, [facility] [address] [place] [facility] [address] Oct, [facility] [address] [place] [facility] [place] [address] Oct, [facility] [address] [place] [facility] [place] [address] Oct, [facility] [address] [place] [facility] [place] [address] Oct, Abscess L02.91 [facility] [address] [place] [facility] [place] [address] Oct, [facility] [address] [place] [facility] [place] [address] Oct, [facility] [address] [place] [facility] [place] [address] Oct, [facility] [address] [place] [facility] [place] [address] Oct, Abscess L02.91 and Acute right ankle ta n M25.571 [facility] [address] [place] [facility] [place] [address] Oct, [facility] [address] [place] [facility] [place] [address] Oct, [facility] [address] [place] [facility] [place] [address] Oct, Abscess L02.[address] [facility] [address] [place] [facility] [place] [address] Oct, [facility] [address] [place] [facility] [place] [address] Oct, [facility] [address] [place] [phone] Oct, Asymptomatic human immunodef iciency virus (HIV) infection status Z21 ; alf current use of opiate analgesic Z79.891 ; Nicotine dependence, cigarettes, uncomplicated F17.210 ; Iron deficiency anemia due to chronic blood loss D50.0 ; GERD with esophagitis K21.0 ; Major depressive disorder, recurrent, moderate F33.1 and Generalized anxiety disorder F41.1 [facility] [address] [place] [facility] [place] [address] Sep, Major depressive disorder, recurrent, mo derate F33.1 [facility] [address] [place] [address] Sep, [facility] [address] [place] [facility] [place] [address] Sep, [facility] [address] [facility] [place] [address] Sep, [facility] [address] [facility] [place] [address] Sep, [facility] [address] [facility] [place] [address] Sep, [facility] [address] [facility] [place] [address] Aug, [facility] [address] [facility] [place] [address] Aug, [facility] [address] [place] [address] Aug, [facility] [address] [facility] [place] [address] Aug, Loss of appetite R63.0 ; Major depressiv e disorder, recurrent, moderate F33.1 and Functional diarrhea K59.1 [facility] [address] [place] [address] Aug, Acute hemorrhoid K64.9 and Other osteoar thritis involving multiple joints M15.8 [facility] [address] [place] [address] Aug, Abscess L02.91 [facility] [address] [place] [address] July, Chronic diarrhea K52.9 [facility] [address] [place] [address] July, [facility] [address] [place] [id number] July, Asymptomatic human immunodef iciency virus (HIV) infection status Z21 ; Nicotine dependence, cigarettes, uncomplicated F17.210 ; Chronic diarrhea K52.9 ; Abscess L02.91 ; GERD with esophagitis K21.0 ; Anxiety F41.9 and 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 [facility] [address] [place] [address] Jun, Pain in joint involving multiple sites M 25.50 [facility] [address] [place] [address] Jun, [address] [address] Jun, Pain in joint involving multiple sites M 25.[address] [address] Jun, Pain in joint involving multiple sites M 25.50 ; GERD with esophagitis K21.0 and Intractable hiccups R06.[address] [address] May, Pain in joint involving multiple sites M 25.[address] [address] Apr, Pain in joint involving multiple sites M 25.50 and Anxiety F41.[address] [address] Apr, [address] [address] Apr, Chronic diarrhea K52.9 and Pain in joint involving multiple sites M25.50 [facility] [address] [place] [id number] 10 Apr, 2016 Asymptomatic human immunodef iciency virus (HIV) infection status Z21 ; Mild intermittent asthma without complication J45.20 ; Iron deficiency anemia due to chronic blood loss D50.0 ; Screening, lipid Z13.220 ; Chronic diarrhea K52.9 ; Abscess L02.91 and Projectile vomiting with nausea R11.[address] [address] Feb, Acute hemorrhoid K64.[address] [address] Jan, [address] [address] Jan, Nausea and vomiting, intractability of v omiting not specified, unspecified vomiting type R11.2 and Acute right ankle pain M25.571 [facility] [address] [place] [address] Jan, [facility] [address] [place] [address] 09 Jan, 2016 Asymptomatic human immunodeficiency viru s (HIV) infection status Z21 ; Iron deficiency anemia due to chronic blood loss D50.0 and Generalized abdominal pain R10.84 [facility] [address] [facility] [place] [phone] Dec, Asymptomatic human immunodef iciency virus (HIV) infection status Z21 ; Mild intermittent asthma without complication J45.20 ; Influenza vaccine needed Z23 and Nicotine dependence, cigarettes, uncomplicated F17.210 [facility] [address] [id number] 2 9 Oct, 2013 [facility] [address] [id number] 2 8 Oct, 2013 [facility] [address] [place] [address] 08 May, 2012 [facility] [address] [place] [address] Feb, [facility] [address] [place] [address] Nov, [facility] [address] [place] [address] Aug, [facility] [address] [place] [address] Apr, [facility] [address] [place], [place] [phone] 1 8 Jan, 2011 IMMUNIZATIONS No Known [...]
--- OUTSIDE RECORDS SUMMARY | 2019-07-04 12:00 | XMS REPORT ---
Author Author Sergio Adams [facility] Address [address] [place], [place] [id number] Care Team Providers Care Sonography Technologist Name Role Phone Araseli Adams Unavailable PROBLEMS Type Condition ICD9-CM Code [id number] Code Onset Dates Condition S tatus SNOMED Code Problem Mild intermittent asthma without complication J45. 20 Active 123980364 Problem Iron deficiency anemia due to chronic blood loss D 50.0 Active 18242262 Problem Other osteoarthritis involving multiple joints M15 .8 Active 503912108 Problem Asymptomatic human immunodeficiency virus (HIV) infect ion status Z21 Active 09114089 Problem Other and unspecified noninfectious gastroenteritis an d colitis K52.9 Active 60639006 Problem Nicotine dependence, cigarettes, uncomplicated F17 .210 Active 35074007 Problem Other chronic pain G89.29 Active 8 5186359 Problem Generalized anxiety disorder F41.1 A ctive 60441262 Problem GERD with esophagitis K21.0 Active 342077057 Problem Functional diarrhea K59.1 Active 29620643 Problem Major depressive disorder, recurrent, moderate F33 .1 Active 860831556 Problem Loss of appetite R63.0 Active 798 39770 ALLERGIES No Information ENCOUNTERS Encounter Location Date Diagnosis [facility] [address] [place] [address] Oct, Other chronic pain G89.29 [facility] [address] [place] [address] Oct, Other chronic pain G89.29 [facility] [address] [place] [address] Sep, Other chronic pain G89.29 [facility] [address] [place] [address] Sep, Other chronic pain G89.29 [facility] [address] [place] [address] [place] [phone] Sep, Asymptomatic human immunodef iciency virus (HIV) infection status Z21 and GERD with esophagitis K21.0 [facility] [address] [facility] [place] [address] Sep, [facility] [address] [facility] [place] [address] Sep, Loss of appetite R63.0 and Other chronic pain G89.29 [facility] [address] [facility] [place] [facility] [address] Sep, Other chronic pain G89.29 [facility] [address] [facility] [place] [address] Aug, Other chronic pain G89.29 [facility] [address] [facility] [place] [address] Aug, Other chronic pain G89.29 [facility] [address] [facility] [place] [address] July, Other chronic pain G89.29 [facility] [address] [facility] [place] [address] July, [facility] [address] [facility] [place] [address] July, [facility] [address] [facility] [place] [address] July, Other chronic pain G89.29 [facility] [address] [facility] [place] [address] July, [facility] [address] [facility] [place] [address] July, Other chronic pain G89.29 [facility] [address] [facility] [place] [address] Jun, [facility] [address] [facility] [place] [address] Jun, Other chronic pain G89.29 [facility] [address] [facility] [place] [address] Jun, [facility] [address] [facility] [place] [address] Jun, Other chronic pain G89.29 [facility] [address] [facility] [place] [address] May, Other chronic pain G89.29 [facility] [address] [facility] [place] [address] May, [facility] [address] [facility] [place] [address] May, [facility] [address] [facility] [place] [address] May, [facility] [address] [facility] [place] [address] May, [facility] [address] [facility] [place] [address] May, [facility] [address] [facility] [place] [address] Apr, [facility] [address] [facility] [place] [address] Apr, [facility] [address] [facility] [place] [address] Apr, [facility] [address] [facility] [place] [address] Apr, [facility] [address] [facility] [place] [address] Apr, [facility] [address] [facility] [place] [address] Apr, [facility] [address] [facility] [place] [address] Apr, [facility] [address] [facility] [place] [address] Apr, [facility] [address] [facility] [place] [address] Apr, [facility] [address] [facility] [place] [address] Apr, Other chronic pain G89.29 [facility] [address] [facility] [place] [address] Apr, [address] [place] [id number] 15 Apr, 2018 Asymptomatic human immunodef iciency virus (HIV) infection status Z21 ; Other chronic pain G89.29 and Screening for cardiovascular condition Z13.6 [facility] [address] [facility] [place] [address] 14 Apr, 2018 [facility] [address] [place] [address] Apr, [facility] [address] [place] [address] Apr, [facility] [address] [place] [address] Apr, Other chronic pain G89.29 [facility] [address] [place] [address], [place] [address] Mar, Loss of appetite R63.0 [facility] [address] [place] [address] Mar, [facility] [address] [place] [address] Mar, [facility] [address] [place] [address] Mar, [facility] [address] [place] [address] Mar, [facility] [address] [place] [address] Mar, Other chronic pain G89.29 [facility] [address] [place] [address] Mar, [facility] [address] [place] [address] Mar, [facility] [address] [place] [address] Mar, [facility] [address] [place] [address] Mar, Other chronic pain G89.29 [facility] [address] [place] [address] S [id number] Mar, Asymptomatic human immunodeficiency viru s (HIV) infection status Z21 [facility] [address] [place] [address] Mar, Other chronic pain G89.29 [facility] [address] [facility] [place] [address] Mar, [facility] [address] [place] [address] Mar, [facility] [address] [place] [address] Feb, Other chronic pain G89.29 [facility] [address] [place] [address] Feb, Other chronic pain G89.29 [facility] [address] [facility] [place] [id number] Feb, Other chronic pain G89.29 [place] [place] [address] [place] [id number] Feb, Asymptomatic human immunodef iciency virus (HIV) infection status Z21 and Other chronic pain G89.29 [facility] [address] [place] [address] Jan, Other chronic pain G89.29 [facility] [address] [place] [address] Jan, Other chronic pain G89.29 [facility] [address] [place] [address] Jan, Asymptomatic human immunodeficiency viru s (HIV) infection status Z21 [facility] [address] [place] [address] Jan, Other chronic pain G89.29 [facility] [address] [place] [address] Jan, [facility] [address] [place] [address] Dec, Other chronic pain G89.29 [facility] [address] [place] [address] Dec, Other chronic pain G89.29 [facility] [address] [place] [address] [place] [phone] Nov, Asymptomatic human immunodef iciency virus (HIV) infection status Z21 ; Influenza vaccine needed Z23 and Other chronic pain G89.29 [facility] [address] [place] [address] 05 Nov, 2017 Other chronic pain G89.29 [facility] [address] [place] [address] Oct, [facility] [address] [place] [address] Oct, Other chronic pain G89.29 [facility] [address] [place] [address] Oct, [facility] [address] [phone] Sep, Asymptomatic human immunodef iciency virus (HIV) infection status Z21 ; Other chronic pain G89.29 and Generalized anxiety disorder F41.1 [facility] [address] [place] [address] Jun, [facility] [address] [place] [address] Jun, [facility] [address] [place] [address] Jun, [facility] [address] [phone] Jun, Asymptomatic human immunodef iciency virus (HIV) infection status Z21 ; Need for pneumococcal vaccine Z23 ; Major depressive disorder, recurrent, moderate F33.1 ; Loss of appetite R63.0 ; Other chronic pain G89.29 ; Other and unspecified noninfectious gastroenteritis and colitis K52.9 and Nausea R11.0 [facility] [address] [place] [address] Jun, [facility] [address] [place] [address] Jun, Acute right ankle pain M25.571 [facility] [address] [place] [address] May, [facility] [address] [place] [address] May, Acute right ankle pain M25.571 [facility] [address] [place] [address] Apr, [facility] [address] [place] [address] Apr, [facility] [address] [place] [address] Mar, Acute right ankle pain M25.571 [facility] [address] [facility] [place] [address] Mar, [facility] [address] [facility] [place] [address] Mar, [facility] [address] [facility] [place] [address] Mar, [facility] [address] [facility] [place] [address] Mar, [facility] [address] [place] [address] Mar, [facility] [address] [place] [address] Mar, Nausea and vomiting, intractability of v omiting not specified, unspecified vomiting type R11.2 [facility] [address] [place] [address] Mar, [facility] [address] [place] [address] Mar, Loss of appetite R63.0 [facility] [address] [place] [address] Mar, [facility] [address] [place] [address] Mar, [facility] [address] [place] [address] Mar, [facility] [address] [place] [address] Feb, Abscess L02.91 [facility] [address] [place] [address] Feb, Acute right ankle pain M25.571 [facility] [address] [place] [address] Feb, [facility] [address] [facility] [place] [address] Feb, [facility] [address] [facility] [place] [address] Feb, [facility] [address] [place] [address] Feb, Acute right ankle pain M25.571 [facility] [address] [facility] [place] [address] Feb, Abscess L02.91 [facility] [address] [facility] [place] [phone] Jan, Asymptomatic human immunodef iciency virus (HIV) infection status Z21 ; Influenza vaccine needed Z23 and Acute right ankle pain M25.571 [facility] [address] [facility] [place] [address] Jan, Abscess L02.91 [facility] [address] [place] [address] Nov, [facility] [address] [place] [address] Nov, Abscess L02.91 [facility] [address] [facility] [place] [address] Nov, Anxiety F41.9 [facility] [address] [place] [address] Nov, Acute right ankle pain M25.571 [facility] [address] [place] [address] 15 Nov, 2016 [facility] [address] [place] [address] 14 Nov, 2016 [facility] [address] [place] [address] 14 Nov, 2016 Hiccups R06.6 [facility] [address] [place] [address] 13 Nov, 2016 [facility] [address] [place] [address] 08 Nov, 2016 [facility] [address] [facility] [place] [address] 08 Nov, 2016 [facility] [address] [facility] [place] [address] Nov, [facility] [address] [facility] [place] [address] Nov, [facility] [address] [facility] [place] [address] Nov, [facility] [address] [facility] [place] [address] Oct, [facility] [address] [facility] [place] [address] Oct, [facility] [address] [facility] [place] [address] Oct, [facility] [address] [facility] [place] [address] Oct, Abscess L02.91 [facility] [address] [facility] [place] [address] Oct, [facility] [address] [facility] [place] [address] Oct, [facility] [address] [facility] [place] [address] Oct, [facility] [address] [facility] [place] [address] Oct, Abscess L02.91 and Acute right ankle ta n M25.571 [facility] [address] [facility] [place] [address] Oct, [facility] [address] [facility] [place] [address] Oct, [facility] [address] [facility] [place] [address] Oct, Abscess L02.91 [facility] [address] [facility] [place] [address] Oct, [facility] [address] [facility] [place] [address] Oct, [facility] [address] [place] [address] [place] [id number] Oct, Asymptomatic human immunodef iciency virus (HIV) infection status Z21 ; [facility] current use of opiate analgesic Z79.891 ; Nicotine dependence, cigarettes, uncomplicated F17.210 ; Iron deficiency anemia due to chronic blood loss D50.0 ; GERD with esophagitis K21.0 ; Major depressive disorder, recurrent, moderate F33.1 and Generalized anxiety disorder F41.1 [facility] [address] [facility] [place] [address] Sep, Major depressive disorder, recurrent, mo derate F33.1 [facility] [address] [facility] [place] [address] Sep, [facility] [address] [facility] [place] [address] Sep, [facility] [address] [facility] [place] [address] Sep, [facility] [address] [facility] [place] [address] Sep, [facility] [address] [facility] [place] [address] Sep, [facility] [address] [facility] [place] [address] Aug, [facility] [address] [facility] [place] [address] Aug, [facility] [address] [facility] [place] [address] Aug, [facility] [address] [place] [address] Aug, Loss of appetite R63.0 ; Major depressiv e disorder, recurrent, moderate F33.1 and Functional diarrhea K59.1 [facility] [address] [facility] [place] [address] Aug, Acute hemorrhoid K64.9 and Other osteoar thritis involving multiple joints M15.8 [facility] [address] [facility] [place] [address] Aug, Abscess L02.91 [facility] [address] [facility] [place] [address] July, Chronic diarrhea K52.9 [facility] [address] [place] [address] July, [address] [id number] July, Asymptomatic human immunodef iciency virus (HIV) infection status Z21 ; Nicotine dependence, cigarettes, uncomplicated F17.210 ; Chronic diarrhea K52.9 ; Abscess L02.91 ; GERD with esophagitis K21.0 ; Anxiety F41.9 and 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 [address] Jun, Pain in joint involving multiple sites M 25.[address] [address] Jun, [address] [address] Jun, Pain in joint involving multiple sites M 25.[address] [address] Jun, Pain in joint involving multiple sites M 25.50 ; GERD with esophagitis K21.0 and Intractable hiccups R06.[address] [address] May, Pain in joint involving multiple sites M 25.[address] [address] Apr, Pain in joint involving multiple sites M 25.50 and Anxiety F41.[address] [address] Apr, [address] [address] Apr, Chronic diarrhea K52.9 and Pain in joint involving multiple sites M25.[address] [id number] Apr, Asymptomatic human immunodef iciency virus (HIV) infection status Z21 ; Mild intermittent asthma without complication J45.20 ; Iron deficiency anemia due to chronic blood loss D50.0 ; Screening, lipid Z13.220 ; Chronic diarrhea K52.9 ; Abscess L02.91 and Projectile vomiting with nausea R11.12 [facility] [address] [place] [address] Feb, Acute hemorrhoid K64.9 [facility] [address] [place] [address] 28 Jan, 2016 [facility] [address] [place] [address] Jan, Nausea and vomiting, intractability of v omiting not specified, unspecified vomiting type R11.2 and Acute right ankle pain M25.571 [facility] [address] [place] [address] Jan, [facility] [address] [place] [address] 09 Jan, 2016 Asymptomatic human immunodeficiency viru s (HIV) infection status Z21 ; Iron deficiency anemia due to chronic blood loss D50.0 and Generalized abdominal pain R10.84 [facility] [address] [place] [id number] Dec, Asymptomatic human immunodef iciency virus (HIV) infection status Z21 ; Mild intermittent asthma without complication J45.20 ; Influenza vaccine needed Z23 and Nicotine dependence, cigarettes, uncomplicated F17.210 [facility] [address] [facility] [address] [place] [id number] 9 Oct, 2013 [facility] [address] [id number] 2 8 Oct, 2013 [facility] [address] [place] [address] 08 May, 2012 [facility] [address] [place] [address] 14 Feb, 2012 [facility] [address] [place] [address] 14 Nov, 2011 [facility] [address] [place] [address] Aug, [facility] [address] [place] [address] Apr, [facility] [address] [facility] [address] [place] [id number] 1 8 Jan, 2011 IMMUNIZATIONS No Known [...]
--- OUTSIDE RECORDS SUMMARY | 2019-07-04 12:00 | XMS REPORT ---
Author Author Sergio Li Organization [facility] Address [address], [place] [id number] Care Team Providers Care Material Chaser Name Role Phone Shana Li Unavailable PROBLEMS Type Condition ICD9-CM Code MSR61-BA Code Onset Dates Condition S tatus SNOMED Code Problem Mild intermittent asthma without complication J45. 20 Active 906874740 Problem Iron deficiency anemia due to chronic blood loss D 50.0 Active 27242575 Problem Other osteoarthritis involving multiple joints M15 .8 Active 697675607 Problem Asymptomatic human immunodeficiency virus (HIV) infect ion status Z21 Active 25284198 Problem Other and unspecified noninfectious gastroenteritis an d colitis K52.9 Active 24953544 Problem Nicotine dependence, cigarettes, uncomplicated F17 .210 Active 90444893 Problem Other chronic pain G89.29 Active 8 0998060 Problem Generalized anxiety disorder F41.1 A ctive 87876698 Problem GERD with esophagitis K21.0 Active 283396855 Problem Functional diarrhea K59.1 Active 27658318 Problem Major depressive disorder, recurrent, moderate F33 .1 Active 473318618 Problem Loss of appetite R63.0 Active 798 07803 ALLERGIES No Information ENCOUNTERS Encounter Location Date Diagnosis [facility] [address] [place] [address] Sep, Other chronic pain G89.[address] [address] Sep, Other chronic pain G89.29 [facility] [address] [facility] [place] [id number] Sep, Asymptomatic human immunodef iciency virus (HIV) infection status Z21 and GERD with esophagitis K21.[address] [facility] [address] [place] [address] Sep, [address] [address] Sep, Loss of appetite R63.0 and Other chronic pain G89.29 [facility] [address] [place] [facility] [place] [address] Sep, Other chronic pain G89.29 [facility] [address] [place] [facility] [place] [address] Aug, Other chronic pain G89.29 [facility] [address] [place] [facility] [place] [address] Aug, Other chronic pain G89.29 [facility] [address] [place] [facility] [place] [address] July, Other chronic pain G89.29 [facility] [address] [place] [facility] [place] [address] July, [facility] [address] [place] [facility] [place] [address] July, [facility] [address] [place] [facility] [place] [address] July, Other chronic pain G89.29 [facility] [address] [place] [facility] [place] [address] July, [facility] [address] [place] [facility] [place] [address] July, Other chronic pain G89.29 [facility] [address] [place] [facility] [place] [address] Jun, [facility] [address] [place] [facility] [place] [address] Jun, Other chronic pain G89.29 [facility] [address] [place] [facility] [place] [address] Jun, [facility] [address] [place] [facility] [place] [address] Jun, Other chronic pain G89.29 [facility] [address] [place] [facility] [place] [address] May, Other chronic pain G89.29 [facility] [address] [place] [facility] [place] [address] May, [facility] [address] [place] [facility] [place] [address] May, [facility] [address] [place] [facility] [place] [address] May, [facility] [address] [place] [facility] [place] [address] May, [facility] [address] [place] [facility] [place] [address] May, [facility] [address] [place] [facility] [place] [address] Apr, [facility] [address] [place] [facility] [place] [address] Apr, [facility] [address] [place] [facility] [place] [address] Apr, [facility] [address] [place] [facility] [place] [address] Apr, [facility] [address] [place] [facility] [place] [address] Apr, [facility] [address] [place] [facility] [place] [facility] [place] [address] Apr, [facility] [address] [place] [facility] [place] [address] Apr, [facility] [address] [place] [facility] [place] [address] Apr, [facility] [address] [facility] [place] [facility] [address] Apr, [facility] [address] [facility] [place] [facility] [address] Apr, Other chronic pain G89.29 [facility] [address] [facility] [place] [facility] [address] Apr, [address] [id number] 15 Apr, 2018 Asymptomatic human immunodef iciency virus (HIV) infection status Z21 ; Other chronic pain G89.29 and Screening for cardiovascular condition Z13.6 [facility] [address] [place] [facility] [place] [address] Apr, [facility] [address] [place] [address] Apr, [facility] [address] [place] [address] Apr, [facility] [address] [place] [address] Apr, Other chronic pain G89.29 [facility] [address] [place] [facility] [place] [address] Mar, Loss of appetite R63.0 [facility] [address] [facility] [place] [address] Mar, [facility] [address] [facility] [place] [address] Mar, [facility] [address] [place] [address] Mar, [facility] [address] [place] [address] Mar, [facility] [address] [place] [address] Mar, Other chronic pain G89.29 [facility] [address] [place] [address] Mar, [facility] [address] [place] [address] Mar, [facility] [address] [place] [address] Mar, [facility] [address] [place] [address] Mar, Other chronic pain G89.29 [facility] [address] [facility] [place] [id number] Mar, Asymptomatic human immunodeficiency viru s (HIV) infection status Z21 [facility] [address] [place] [address] Mar, Other chronic pain G89.29 [facility] [address] [place] [address] Mar, [facility] [address] [place] [address] Mar, [facility] [address] [place] [address] Feb, Other chronic pain G89.[address] [facility] [address] [place] [address] Feb, Other chronic pain G89.29 [facility] [address] [place] [id number] Feb, Other chronic pain G89.29 [facility] [address] [place] [phone] Feb, Asymptomatic human immunodef iciency virus (HIV) infection status Z21 and Other chronic pain G89.[address] [facility] [address] [place] [address] Jan, Other chronic pain G89.[address] [facility] [address] [place] [address] Jan, Other chronic pain G89.[address] [facility] [address] [place] [address] Jan, Asymptomatic human immunodeficiency viru s (HIV) infection status Z21 [facility] [address] [place] [address] Jan, Other chronic pain G89.[address] [facility] [address] [place] [address] Jan, [facility] [address] [place] [address] Dec, Other chronic pain G89.[address] [facility] [address] [place] [address] Dec, Other chronic pain G89.29 [facility] [address] [facility] [place] [id number] Nov, Asymptomatic human immunodef iciency virus (HIV) infection status Z21 ; Influenza vaccine needed Z23 and Other chronic pain G89.[address] [facility] [address] [place] [address] Nov, Other chronic pain G89.[address] [facility] [address] [place] [address] Oct, [facility] [address] [place] [address] Oct, Other chronic pain G89.29 [facility] [address] [place] [address] Oct, [facility] [address] [place] [id number] Sep, Asymptomatic human immunodef iciency virus (HIV) infection status Z21 ; Other chronic pain G89.29 and Generalized anxiety disorder F41.1 [facility] [address] [place] [address] Jun, [facility] [address] [place] [address] Jun, [facility] [address] [place] [address] Jun, [address] [id number] Jun, Asymptomatic human immunodef iciency virus (HIV) infection status Z21 ; Need for pneumococcal vaccine Z23 ; Major depressive disorder, recurrent, moderate F33.1 ; Loss of appetite R63.0 ; Other chronic pain G89.29 ; Other and unspecified noninfectious gastroenteritis and colitis K52.9 and Nausea R11.0 [facility] [address] [place] [address] Jun, [facility] [address] [place] [address] Jun, Acute right ankle pain M25.571 [facility] [address] [place] [address] May, [facility] [address] [place] [address] May, Acute right ankle pain M25.[address] [facility] [address] [place] [address] Apr, [facility] [address] [place] [address] Apr, [facility] [address] [place] [address] Mar, Acute right ankle pain M25.571 [facility] [address] [facility] [place] [address] Mar, [facility] [address] [place] [facility] [place] [address] Mar, [facility] [address] [place] [facility] [place] [address] Mar, [facility] [address] [facility] [place] [address] Mar, [facility] [address] [place] [facility] [place] [address] Mar, [facility] [address] [facility] [place] [facility] [address] Mar, Nausea and vomiting, intractability of v omiting not specified, unspecified vomiting type R11.2 [facility] [address] [place] [address] Mar, [facility] [address] [place] [address] Mar, Loss of appetite R63.0 [facility] [address] [facility] [place] [address] Mar, [facility] [address] [facility] [place] [facility] [address] Mar, [facility] [address] [place] [address] Mar, [facility] [address] [place] [address] Feb, Abscess L02.91 [facility] [address] [facility] [place] [address] Feb, Acute right ankle pain M25.571 [facility] [address] [facility] [place] [address] Feb, [facility] [address] [facility] [place] [address] Feb, [facility] [address] [facility] [place] [address] Feb, [facility] [address] [place] [address] Feb, Acute right ankle pain M25.571 [facility] [address] [place] [address] Feb, Abscess L02.91 [facility] [address] [facility] [place] [phone] Jan, Asymptomatic human immunodef iciency virus (HIV) infection status Z21 ; Influenza vaccine needed Z23 and Acute right ankle pain M25.571 [facility] [address] [place] [address] Jan, Abscess L02.91 [facility] [address] [place] [address] Nov, [facility] [address] [place] [address] Nov, Abscess L02.91 [facility] [address] [place] [address] Nov, Anxiety F41.9 [facility] [address] [place] [address] Nov, Acute right ankle pain M25.571 [facility] [address] [place] [address] Nov, [facility] [address] [place] [address] Nov, [facility] [address] [place] [address] Nov, Hiccups R06.6 [facility] [address] [place] [address] 13 Nov, 2016 [facility] [address] [place] [address] Nov, [facility] [address] [place] [address] Nov, [facility] [address] [place] [address] Nov, [facility] [address] [place] [address] Nov, [facility] [address] [place] [facility] [place] [address] Nov, [facility] [address] [place] [facility] [place] [address] Oct, [facility] [address] [place] [facility] [place] [facility] [place] [address] Oct, [facility] [address] [place] [facility] [place] [facility] [place] [address] Oct, [facility] [address] [place] [facility] [place] [address] Oct, Abscess L02.91 [facility] [address] [place] [facility] [place] [address] Oct, [facility] [address] [place] [facility] [place] [facility] [place] [address] Oct, [facility] [address] [place] [facility] [place] [address] Oct, [facility] [address] [place] [facility] [place] [address] Oct, Abscess L02.91 and Acute right ankle ta n M25.571 [facility] [address] [place] [facility] [place] [address] Oct, [facility] [address] [place] [facility] [place] [facility] [place] [address] Oct, [facility] [address] [place] [facility] [place] [address] Oct, Abscess L02.91 [facility] [address] [place] [facility] [place] [address] Oct, [facility] [address] [place] [facility] [place] [address] Oct, [facility] [address] [place] [id number] Oct, Asymptomatic human immunodef iciency virus (HIV) infection status Z21 ; 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 [address] [place] [facility] [place] [address] Sep, [facility] [address] [place] [facility] [place] [address] Sep, [facility] [address] [place] [facility] [place] [facility] [place] [address] Sep, [facility] [address] [place] [facility] [place] [address] Sep, [facility] [address] [facility] [place] [address] Sep, [facility] [address] [place] [facility] [place] [address] Aug, [facility] [address] [facility] [place] [address] Aug, [facility] [address] [place] [facility] [place] [address] Aug, [facility] [address] [facility] [place] [address] Aug, Loss of appetite R63.0 ; Major depressiv e disorder, recurrent, moderate F33.1 and Functional diarrhea K59.[address] [facility] [address] [place] [address] Aug, Acute hemorrhoid K64.9 and Other osteoar thritis involving multiple joints M15.[address] [facility] [address] [place] [facility] [place] [address] Aug, Abscess L02.[address] [facility] [address] [place] [address] July, Chronic diarrhea K52.[address] [facility] [address] [place] [address] July, [facility] [address] [place] [id number] July, Asymptomatic human immunodef iciency virus (HIV) infection status Z21 ; Nicotine dependence, cigarettes, uncomplicated F17.210 ; Chronic diarrhea K52.9 ; Abscess L02.91 ; GERD with esophagitis K21.0 ; Anxiety F41.9 and 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 [facility] [address] [place] [address] Jun, Pain in joint involving multiple sites M 25.[address] [address] Jun, [address] [address] Jun, Pain in joint involving multiple sites M 25.[address] [address] Jun, Pain in joint involving multiple sites M 25.50 ; GERD with esophagitis K21.0 and Intractable hiccups R06.[address] [address] May, Pain in joint involving multiple sites M 25.[address] [address] Apr, Pain in joint involving multiple sites M 25.50 and Anxiety F41.[address] [address] Apr, [address] [address] Apr, Chronic diarrhea K52.9 and Pain in joint involving multiple sites M25.50 [facility] [address] [place] [id number] Apr, Asymptomatic human immunodef iciency virus (HIV) infection status Z21 ; Mild intermittent asthma without complication J45.20 ; Iron deficiency anemia due to chronic blood loss D50.0 ; Screening, lipid Z13.220 ; Chronic diarrhea K52.9 ; Abscess L02.91 and Projectile vomiting with nausea R11.[address] [address] Feb, Acute hemorrhoid K64.[address] [address] Jan, [facility] [address] [place] [address] Jan, Nausea and vomiting, intractability of v omiting not specified, unspecified vomiting type R11.2 and Acute right ankle pain M25.[address] [facility] [address] [place] [address] 10 Jan, [address] [facility] [address] [place] [address] 09 Jan, 2016 Asymptomatic human immunodeficiency viru s (HIV) infection status Z21 ; Iron deficiency anemia due to chronic blood loss D50.0 and Generalized abdominal pain R10.84 [facility] [address] [place] [id number] Dec, Asymptomatic human immunodef iciency virus (HIV) infection status Z21 ; Mild intermittent asthma without complication J45.20 ; Influenza vaccine needed Z23 and Nicotine dependence, cigarettes, uncomplicated F17.210 [facility] [address] [id number] [phone] Oct, 2013 [facility] [address] [id number] 8 Oct, [address] [facility] [address] [place] [address] 08 May, [address] [facility] [address] [place] [address] Feb, [facility] [address] [place] [address] Nov, [facility] [address] [place] [address] Aug, [facility] [address] [place] [address] Apr, [place] [id number] [phone] Jan, IMMUNIZATIONS No Known Immunizations SOCIAL HISTORY Never Assessed REASON FOR VISIT RX not signed PLAN OF CARE VITAL SIGNS MEDICATIONS Medication Instructions Dosage Frequency Start Date End Date Duration S tatus Percocet 7.5-325 MG Orally every 6 hrs 1 tablet as needed 6h 11 Apr, 2017 7 days Active RESULTS No Results PROCEDURES No Known procedures INSTRUCTIONS MEDICATIONS ADMINISTERED No Known Medications MEDICAL (GENERAL) HISTORY Type Description Date Medical History HIV Medical History Colitis Medical History chronic pain Medical History depression Surgical History No Surgical history information
--- OUTSIDE RECORDS SUMMARY | 2019-07-04 12:01 | XMS REPORT ---
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 20 Active 061428227 Problem Iron deficiency anemia due to chronic blood loss D 50.0 Active 34009654 Problem Other osteoarthritis involving multiple joints M15 .8 Active 920705925 Problem Asymptomatic human immunodeficiency virus (HIV) infect ion status Z21 Active 37406000 Problem Other and unspecified noninfectious gastroenteritis an d colitis K52.9 Active 92154213 Problem Nicotine dependence, cigarettes, uncomplicated F17 .210 Active 57880783 Problem Other chronic pain G89.29 Active 8 9717461 Problem Generalized anxiety disorder F41.1 A ctive 39003699 Problem GERD with esophagitis K21.0 Active 514334681 Problem Functional diarrhea K59.1 Active 67230059 Problem Major depressive disorder, recurrent, moderate F33 .1 Active 349524135 Problem Loss of appetite R63.0 Active 798 15813 ALLERGIES No Information ENCOUNTERS Encounter Location Date Diagnosis [facility] [address] [facility] [address] [place], [place] [id number] Sep, [facility] [address] [place] [address] Sep, [facility] [address] [place] [address] Sep, Loss of appetite R63.0 and Other chronic pain G89.29 [facility] [address] [place] [address] Sep, Other chronic pain G89.[address] [address] Aug, Other chronic pain G89.29 [facility] [address] [place] [facility] [place] [address] Aug, Other chronic pain G89.29 [facility] [address] [place] [facility] [place] [address] July, Other chronic pain G89.29 [facility] [address] [place] [facility] [place] [address] July, [facility] [address] [place] [facility] [place] [address] July, [facility] [address] [place] [facility] [place] [address] July, Other chronic pain G89.29 [facility] [address] [place] [facility] [place] [address] July, [facility] [address] [place] [facility] [place] [address] July, Other chronic pain G89.29 [facility] [address] [place] [facility] [place] [address] Jun, [facility] [address] [place] [facility] [place] [address] Jun, Other chronic pain G89.29 [facility] [address] [place] [facility] [place] [address] Jun, [facility] [address] [place] [facility] [place] [address] Jun, Other chronic pain G89.29 [facility] [address] [place] [facility] [place] [address] May, Other chronic pain G89.29 [facility] [address] [place] [facility] [place] [address] May, [facility] [address] [place] [facility] [place] [address] May, [facility] [address] [place] [facility] [place] [address] May, [facility] [address] [place] [facility] [place] [address] May, [facility] [address] [place] [facility] [place] [address] May, [facility] [address] [place] [facility] [place] [address] Apr, [facility] [address] [place] [facility] [place] [address] Apr, [facility] [address] [place] [facility] [place] [address] Apr, [facility] [address] [place] [facility] [place] [address] Apr, [facility] [address] [place] [facility] [place] [address] Apr, [facility] [address] [place] [facility] [place] [address] Apr, [facility] [address] [place] [facility] [place] [address] Apr, [facility] [address] [place] [facility] [place] [address] Apr, [facility] [address] [place] [facility] [place] [address] Apr, [facility] [address] [place] [facility] [place] [address] Apr, Other chronic pain G89.29 [facility] [address] [place] [facility] [place] [address] Apr, [facility] [address] [place] [phone] Apr, Asymptomatic human immunodef iciency virus (HIV) infection status Z21 ; Other chronic pain G89.29 and Screening for cardiovascular condition Z13.6 [facility] [address] [place] [facility] [place] [address] Apr, [facility] [address] [place] [facility] [place] [address] Apr, [facility] [address] [place] [facility] [place] [facility] [place] [address] Apr, [facility] [address] [place] [facility] [place] [address] Apr, Other chronic pain G89.29 [facility] [address] [place] [facility] [place] [address] Mar, Loss of appetite R63.0 [facility] [address] [place] [facility] [place] [address] Mar, [facility] [address] [place] [facility] [place] [address] Mar, [facility] [address] [place] [facility] [place] [address] Mar, [facility] [address] [place] [facility] [place] [address] Mar, [facility] [address] [place] [facility] [place] [address] Mar, Other chronic pain G89.29 [facility] [address] [place] [facility] [place] [address] Mar, [facility] [address] [place] [facility] [place] [address] Mar, [facility] [address] [place] [facility] [place] [address] Mar, [facility] [address] [place] [facility] [place] [address] Mar, Other chronic pain G89.29 [facility] [address] [place] [phone] Mar, Asymptomatic human immunodeficiency viru s (HIV) infection status Z21 [facility] [address] [place] [address] Mar, Other chronic pain G89.29 [facility] [address] [place] [address] Mar, [facility] [address] [place] [address] Mar, [facility] [address] [place] [address] Feb, Other chronic pain G89.29 [facility] [address] [place] [address] Feb, Other chronic pain G89.29 [facility] [address] [place] [address] S [phone] Feb, Other chronic pain G89.29 [facility] [address] [place] [id number] Feb, Asymptomatic human immunodef iciency virus (HIV) infection status Z21 and Other chronic pain G89.29 [facility] [address] [place] [address] Jan, Other chronic pain G89.29 [facility] [address] [place] [address] Jan, Other chronic pain G89.29 [facility] [address] [place] [address] Jan, Asymptomatic human immunodeficiency viru s (HIV) infection status Z21 [facility] [address] [place] [address] Jan, Other chronic pain G89.29 [facility] [address] [place] [address] Jan, [facility] [address] [place] [address] Dec, Other chronic pain G89.29 [facility] [address] [place] [address] Dec, Other chronic pain G89.[address] [id number] Nov, Asymptomatic human immunodef iciency virus (HIV) infection status Z21 ; Influenza vaccine needed Z23 and Other chronic pain G89.29 [facility] [address] [place] [address] Nov, Other chronic pain G89.29 [facility] [address] [place] [address] Oct, [facility] [address] [place] [address] Oct, Other chronic pain G89.29 [facility] [address] [place] [address] Oct, [facility] [address] [place] [phone] Sep, Asymptomatic human immunodef iciency virus (HIV) infection status Z21 ; Other chronic pain G89.29 and Generalized anxiety disorder F41.1 [facility] [address] [place] [address] Jun, [facility] [address] [place] [address] Jun, [facility] [address] [place] [address] Jun, [facility] [address] [facility] [address] [place] [phone] Jun, Asymptomatic human immunodef iciency virus (HIV) infection status Z21 ; Need for pneumococcal vaccine Z23 ; Major depressive disorder, recurrent, moderate F33.1 ; Loss of appetite R63.0 ; Other chronic pain G89.29 ; Other and unspecified noninfectious gastroenteritis and colitis K52.9 and Nausea R11.0 [facility] [address] [place] [address] Jun, [facility] [address] [place] [address] Jun, Acute right ankle pain M25.[address] [address] May, [facility] [address] [place] [address] May, Acute right ankle pain M25.571 [facility] [address] [place] [address] Apr, [facility] [address] [place] [address] Apr, [facility] [address] [place] [address] Mar, Acute right ankle pain M25.571 [facility] [address] [place] [address] Mar, [facility] [address] [place] [address] Mar, [facility] [address] [place] [address] Mar, [facility] [address] [place] [address] Mar, [facility] [address] [place] [address] Mar, [facility] [address] [place] [address] Mar, Nausea and vomiting, intractability of v omiting not specified, unspecified vomiting type R11.2 [facility] [address] [place] [facility] [place] [address] Mar, [facility] [address] [place] [address] Mar, Loss of appetite R63.0 [facility] [address] [place] [address] Mar, [facility] [address] [place] [address] Mar, [facility] [address] [place] [address] Mar, [facility] [address] [place] [address] Feb, Abscess L02.91 [facility] [address] [place] [address] Feb, Acute right ankle pain M25.571 [facility] [address] [place] [address] Feb, [facility] [address] [place] [address] Feb, [facility] [address] [place] [address] Feb, [facility] [address] [place] [address] Feb, Acute right ankle pain M25.571 [facility] [address] [place] [address] Feb, Abscess L02.91 [facility] [address] [place] [address] [place] [phone] Jan, Asymptomatic human immunodef iciency virus (HIV) infection status Z21 ; Influenza vaccine needed Z23 and Acute right ankle pain M25.571 [facility] [address] [place] [facility] [place] [address] Jan, Abscess L02.91 [facility] [address] [place] [facility] [place] [address] Nov, [facility] [address] [place] [address] Nov, Abscess L02.91 [facility] [address] [place] [facility] [place] [address] Nov, Anxiety F41.9 [facility] [address] [place] [facility] [place] [address] Nov, Acute right ankle pain M25.571 [facility] [address] [place] [facility] [place] [address] 15 Nov, 2016 [facility] [address] [place] [address] Nov, [facility] [address] [place] [address] 14 Nov, 2016 Hiccups R06.6 [facility] [address] [place] [address] 13 Nov, 2016 [facility] [address] [place] [address] Nov, [facility] [address] [place] [address] Nov, [facility] [address] [place] [address] Nov, [facility] [address] [place] [address] Nov, [facility] [address] [place] [address] Nov, [facility] [address] [place] [address] Oct, [facility] [address] [place] [address] Oct, [facility] [address] [place] [address] Oct, [facility] [address] [place] [address] Oct, Abscess L02.91 [facility] [address] [place] [address] Oct, [facility] [address] [place] [address] Oct, [facility] [address] [place] [facility] [place] [address] Oct, [facility] [address] [place] [address] Oct, Abscess L02.91 and Acute right ankle ta n M25.571 [facility] [address] [place] [address] Oct, [facility] [address] [place] [address] Oct, [facility] [address] [place] [address] Oct, Abscess L02.91 [facility] [address] [place] [address] Oct, [facility] [address] [place] [address] Oct, [facility] [address] [place] [phone] Oct, Asymptomatic human immunodef iciency virus (HIV) infection status Z21 ; 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 ; Nicotine dependence, cigarettes, uncomplicated F17.210 ; Iron deficiency anemia due to chronic blood loss D50.0 ; GERD with esophagitis K21.0 ; Major depressive disorder, recurrent, moderate F33.1 and Generalized anxiety disorder F41.1 [facility] [address] [place] [address] Sep, Major depressive disorder, recurrent, mo derate F33.1 [facility] [address] [place] [address] Sep, [facility] [address] [place] [address] Sep, [facility] [address] [place] [address] Sep, [facility] [address] [place] [address] Sep, [facility] [address] [place] [address] Sep, [facility] [address] [place] [address] Aug, [facility] [address] [place] [address] Aug, [facility] [address] [place] [address] Aug, [facility] [address] [place] [address] Aug, Loss of appetite R63.0 ; Major depressiv e disorder, recurrent, moderate F33.1 and Functional diarrhea K59.[address] [address] Aug, Acute hemorrhoid K64.9 and Other osteoar thritis involving multiple joints M15.[address] [address] Aug, Abscess L02.[address] [address] July, Chronic diarrhea K52.[address] [address] July, [facility] [address] [place] [phone] July, Asymptomatic human immunodef iciency virus (HIV) infection status Z21 ; Nicotine dependence, cigarettes, uncomplicated F17.210 ; Chronic diarrhea K52.9 ; Abscess L02.91 ; GERD with esophagitis K21.0 ; Anxiety F41.9 and 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 [facility] [address] [place] [address] Jun, Pain in joint involving multiple sites M 25.[address] [address] Jun, [address] [address] Jun, Pain in joint involving multiple sites M 25.[address] [address] Jun, Pain in joint involving multiple sites M 25.50 ; GERD with esophagitis K21.0 and Intractable hiccups R06.[address] [address] May, Pain in joint involving multiple sites M 25.[address] [address] Apr, Pain in joint involving multiple sites M 25.50 and Anxiety F41.[address] [address] Apr, [address] [address] Apr, Chronic diarrhea K52.9 and Pain in joint involving multiple sites M25.50 [facility] [address] [place] [phone] Apr, Asymptomatic human immunodef iciency virus (HIV) infection status Z21 ; Mild intermittent asthma without complication J45.20 ; Iron deficiency anemia due to chronic blood loss D50.0 ; Screening, lipid Z13.220 ; Chronic diarrhea K52.9 ; Abscess L02.91 and Projectile vomiting with nausea R11.[address] [address] Feb, Acute hemorrhoid K64.[address] [address] Jan, [address] [address] Jan, Nausea and vomiting, intractability of v omiting not specified, unspecified vomiting type R11.2 and Acute right ankle pain M25.[address] [address] Jan, [facility] [address] [place] [address] 09 Jan, 2016 Asymptomatic human immunodeficiency viru s (HIV) infection status Z21 ; Iron deficiency anemia due to chronic blood loss D50.0 and Generalized abdominal pain R10.84 [facility] [address] [facility] [place] [phone] Dec, Asymptomatic human immunodef iciency virus (HIV) infection status Z21 ; Mild intermittent asthma without complication J45.20 ; Influenza vaccine needed Z23 and Nicotine dependence, cigarettes, uncomplicated F17.210 [facility] [place] [facility] [address] [facility] [address] [place] [phone] 9 Oct, 2013 [facility] [address] [facility] [address] [place], [place] [phone] 8 Oct, 2013 [facility] [address] [place] [address] 08 May, 2012 [facility] [address] [place] [facility] [place] [address] Feb, [facility] [address] [place] [address] 14 Nov, 2011 [facility] [address] [place] [address] Aug, [facility] [address] [place] [address] Apr, [facility] [address] [facility] [address] [place], [place] [phone] 1 8 Jan, 2011 IMMUNIZATIONS No Known Immunizations SOCIAL HISTORY Never Assessed REASON FOR VISIT script request PLAN OF CARE VITAL SIGNS MEDICATIONS Medication Instructions Dosage Frequency Start Date End Date Duration S tatus Percocet 7.5-325 MG Orally every 6 hrs 1 tablet as needed 6h 11 Apr, 2016 7 days Active Marinol 10 MG Orally [...]
--- OUTSIDE RECORDS SUMMARY | 2019-07-04 12:01 | XMS REPORT ---
Author Author Sergio Adams [facility] Address [address], [place] [id number] Care Team Providers Care Fnp Name Role Phone Araseli Adams Unavailable PROBLEMS Type Condition ICD9-CM Code EFG51-CH Code Onset Dates Condition S tatus SNOMED Code Problem Mild intermittent asthma without complication J45. 20 Active 867545194 Problem Iron deficiency anemia due to chronic blood loss D 50.0 Active 53443127 Problem Other osteoarthritis involving multiple joints M15 .8 Active 770175516 Problem Asymptomatic human immunodeficiency virus (HIV) infect ion status Z21 Active 86015409 Problem Other and unspecified noninfectious gastroenteritis an d colitis K52.9 Active 76810378 Problem Nicotine dependence, cigarettes, uncomplicated F17 .210 Active 41328144 Problem Other chronic pain G89.29 Active 8 9655067 Problem Generalized anxiety disorder F41.1 A ctive 99347297 Problem GERD with esophagitis K21.0 Active 843470922 Problem Functional diarrhea K59.1 Active 36627719 Problem Major depressive disorder, recurrent, moderate F33 .1 Active 728809943 Problem Loss of appetite R63.0 Active 798 94204 ALLERGIES No Information ENCOUNTERS Encounter Location Date Diagnosis [facility] [address] [place] [address] [place] [id number] Sep, [facility] [address] [place] [address] Sep, [facility] [address] [place] [address] Sep, Loss of appetite R63.0 and Other chronic pain G89.29 [facility] [address] [place] [address] Sep, Other chronic pain G89.29 [facility] [address] [place] [address] Aug, Other chronic pain G89.29 [facility] [address] [place] [address] Aug, Other chronic pain G89.29 [facility] [address] [place] [address] July, Other chronic pain G89.29 [facility] [address] [place] [address] July, [facility] [address] [place] [address] July, [facility] [address] [place] [address] July, Other chronic pain G89.29 [facility] [address] [place] [address] July, [facility] [address] [place] [address] July, Other chronic pain G89.29 [facility] [address] [place] [address] Jun, [facility] [address] [place] [address] Jun, Other chronic pain G89.29 [facility] [address] [place] [address] Jun, [facility] [address] [place] [address] Jun, Other chronic pain G89.29 [facility] [address] [place] [address] May, Other chronic pain G89.29 [facility] [address] [place] [address] May, [facility] [address] [place] [address] May, [facility] [address] [place] [address] May, [facility] [address] [place] [address] May, [facility] [address] [place] [address] May, [facility] [address] [place] [address] Apr, [facility] [address] [place] [address] Apr, [facility] [address] [place] [address] Apr, [facility] [address] [place] [address] Apr, [facility] [address] [place] [address] Apr, [facility] [address] [place] [address] Apr, [facility] [address] [place] [address] Apr, [facility] [address] [place] [address] Apr, [facility] [address] [place] [address] Apr, [facility] [address] [place] [address] Apr, Other chronic pain G89.29 [facility] [address] [place] [address] Apr, [facility] [address] [place] [id number] Apr, Asymptomatic human immunodef iciency virus (HIV) infection status Z21 ; Other chronic pain G89.29 and Screening for cardiovascular condition Z13.6 [facility] [address] [place] [address] Apr, [facility] [address] [place] [address] Apr, [facility] [address] [place] [address] Apr, [facility] [address] [place] [address] Apr, Other chronic pain G89.29 [facility] [address] [place] [address] Mar, Loss of appetite R63.0 [facility] [address] [place] [address] Mar, [facility] [address] [place] [address] Mar, [facility] [address] [place] [address] Mar, [facility] [address] [place] [address] Mar, [facility] [address] [place] [address] Mar, Other chronic pain G89.29 [facility] [address] [place] [address] Mar, [facility] [address] [place] [address] Mar, [facility] [address] [place] [address] Mar, [facility] [address] [place] [address] Mar, Other chronic pain G89.29 [facility] [address] [place] [address], S [id number] Mar, Asymptomatic human immunodeficiency viru s (HIV) infection status Z21 [facility] [address] [place] [address] Mar, Other chronic pain G89.29 [facility] [address] [facility] [place] [address] Mar, [facility] [address] [place] [address] Mar, [facility] [address] [place] [address] Feb, Other chronic pain G89.29 [facility] [address] [place] [address] Feb, Other chronic pain G89.29 [facility] [address] [place] [address] S [id number] Feb, Other chronic pain G89.29 [facility] [address] [place] [id number] Feb, Asymptomatic human immunodef iciency virus (HIV) infection status Z21 and Other chronic pain G89.29 [facility] [address] [place] [address] Jan, Other chronic pain G89.29 [facility] [address] [place] [address] Jan, Other chronic pain G89.29 [facility] [address] [place] [address] Jan, Asymptomatic human immunodeficiency viru s (HIV) infection status Z21 [facility] [address] [place] [address] Jan, Other chronic pain G89.29 [facility] [address] [place] [address] Jan, [facility] [address] [place] [address] Dec, Other chronic pain G89.29 [facility] [address] [place] [address] Dec, Other chronic pain G89.[address] [id number] Nov, Asymptomatic human immunodef iciency virus (HIV) infection status Z21 ; Influenza vaccine needed Z23 and Other chronic pain G89.29 [facility] [address] [place] [address] Nov, Other chronic pain G89.29 [facility] [address] [place] [address] Oct, [facility] [address] [place] [address] Oct, Other chronic pain G89.29 [facility] [address] [place] [address] Oct, [facility] [address] [place] [phone] Sep, Asymptomatic human immunodef iciency virus (HIV) infection status Z21 ; Other chronic pain G89.29 and Generalized anxiety disorder F41.1 [facility] [address] [place] [address] Jun, [facility] [address] [place] [address] Jun, [facility] [address] [place] [address] Jun, [facility] [address] [place] [address] l[address] [place] [phone] Jun, Asymptomatic human immunodef iciency virus (HIV) infection status Z21 ; Need for pneumococcal vaccine Z23 ; Major depressive disorder, recurrent, moderate F33.1 ; Loss of appetite R63.0 ; Other chronic pain G89.29 ; Other and unspecified noninfectious gastroenteritis and colitis K52.9 and Nausea R11.0 [facility] [address] [place] [address] Jun, [facility] [address] [place] [address] Jun, Acute right ankle pain M25.571 [facility] [address] [address] May, [facility] [address] [place] [address] May, Acute right ankle pain M25.571 [facility] [address] [place] [address] Apr, [facility] [address] [place] [address] Apr, [facility] [address] [place] [address] Mar, Acute right ankle pain M25.571 [facility] [address] [place] [address] Mar, [facility] [address] [place] [address] Mar, [facility] [address] [place] [address] Mar, [facility] [address] [place] [address] Mar, [facility] [address] [place] [address] Mar, [facility] [address] [place] [address] Mar, Nausea and vomiting, intractability of v omiting not specified, unspecified vomiting type R11.2 [facility] [address] [place] [address] Mar, [facility] [address] [place] [address] Mar, Loss of appetite R63.0 [facility] [address] [place] [address] Mar, [facility] [address] [place] [address] Mar, [facility] [address] [place] [address] Mar, [facility] [address] [place] [address] Feb, Abscess L02.91 [facility] [address] [place] [address] Feb, Acute right ankle pain M25.571 [facility] [address] [place] [address] Feb, [facility] [address] [place] [address] Feb, [facility] [address] [place] [address] Feb, [facility] [address] [place] [address] Feb, Acute right ankle pain M25.571 [facility] [address] [place] [address] Feb, Abscess L02.91 [facility] [address] [place] [address] [place] [phone] Jan, Asymptomatic human immunodef iciency virus (HIV) infection status Z21 ; Influenza vaccine needed Z23 and Acute right ankle pain M25.571 [facility] [address] [place] [address] Jan, Abscess L02.91 [facility] [address] [place] [address] Nov, [facility] [address] [place] [address] Nov, Abscess L02.91 [facility] [address] [place] [address] Nov, Anxiety F41.9 [facility] [address] [place] [address] Nov, Acute right ankle pain M25.571 [facility] [address] [place] [address] 15 Nov, 2016 [facility] [address] [place] [address] Nov, [facility] [address] [place] [address] Nov, Hiccups R06.6 [facility] [address] [place] [address] Nov, [facility] [address] [place] [address] Nov, [facility] [address] [place] [address] Nov, [facility] [address] [place] [address] Nov, [facility] [address] [place] [address] Nov, [facility] [address] [place] [address] Nov, [facility] [address] [place] [address] Oct, [facility] [address] [place] [address] Oct, [facility] [address] [place] [address] Oct, [facility] [address] [place] [address] Oct, Abscess L02.91 [facility] [address] [place] [address] Oct, [facility] [address] [place] [address] Oct, [facility] [address] [place] [address] Oct, [facility] [address] [place] [address] Oct, Abscess L02.91 and Acute right ankle ta n M25.571 [facility] [address] 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 [address] Sep, [facility] [address] [place] [address] Sep, [facility] [address] [place] [address] Aug, [facility] [address] [place] [address] Aug, [facility] [address] [place] [address] Aug, [facility] [address] [place] [address] Aug, Loss of appetite R63.0 ; Major depressiv e disorder, recurrent, moderate F33.1 and Functional diarrhea K59.1 [facility] [address] [place] [address] Aug, Acute hemorrhoid K64.9 and Other osteoar thritis involving multiple joints M15.8 [facility] [address] [place] [address] Aug, Abscess L02.[address] [address] July, Chronic diarrhea K52.[address] [address] July, [facility] [address] [place] [phone] July, Asymptomatic human immunodef iciency virus (HIV) infection status Z21 ; Nicotine dependence, cigarettes, uncomplicated F17.210 ; Chronic diarrhea K52.9 ; Abscess L02.91 ; GERD with esophagitis K21.0 ; Anxiety F41.9 and 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 [facility] [address] [place] [address] Jun, Pain in joint involving multiple sites M 25.[address] [address] Jun, [address] [address] Jun, Pain in joint involving multiple sites M 25.[address] [address] Jun, Pain in joint involving multiple sites M 25.50 ; GERD with esophagitis K21.0 and Intractable hiccups R06.[address] [address] May, Pain in joint involving multiple sites M 25.[address] [address] Apr, Pain in joint involving multiple sites M 25.50 and Anxiety F41.[address] [address] Apr, [address] [address] Apr, Chronic diarrhea K52.9 and Pain in joint involving multiple sites M25.50 [facility] [address] [place] [phone] Apr, Asymptomatic human immunodef iciency virus (HIV) infection status Z21 ; Mild intermittent asthma without complication J45.20 ; Iron deficiency anemia due to chronic blood loss D50.0 ; Screening, lipid Z13.220 ; Chronic diarrhea K52.9 ; Abscess L02.91 and Projectile vomiting with nausea R11.[address] [address] Feb, Acute hemorrhoid K64.[address] [address] Jan, [address] [address] Jan, Nausea and vomiting, intractability of v omiting not specified, unspecified vomiting type R11.2 and Acute right ankle pain M25.[address] [address] Jan, [facility] [address] [place] [address] Jan, Asymptomatic human immunodeficiency viru s (HIV) infection status Z21 ; Iron deficiency anemia due to chronic blood loss D50.0 and Generalized abdominal pain R10.84 [facility] [address] [facility] [place] [phone] Dec, Asymptomatic human immunodef iciency virus (HIV) infection status Z21 ; Mild intermittent asthma without complication J45.20 ; Influenza vaccine needed Z23 and Nicotine dependence, cigarettes, uncomplicated F17.210 [facility] [address] [facility] [address] [place] [id number] 2 9 Oct, 2013 [facility] [address] [facility] [address] [place] [id number] 2 8 Oct, 2013 [facility] [address] [place] [address] 08 May, 2012 [facility] [address] [place] [address] Feb, [facility] [address] [place] [address] Nov, [facility] [address] [place] [address] Aug, [facility] [address] [place] [address] Apr, [facility] [address] [id number] Jan, IMMUNIZATIONS No Known Immunizations SOCIAL HISTORY Never Assessed REASON FOR VISIT thank you PLAN OF CARE VITAL SIGNS MEDICATIONS Unknown Medications RESULTS No Results PROCEDURES No Known procedures INSTRUCTIONS MEDICATIONS ADMINISTERED No Known Medications MEDICAL (GENERAL) HISTORY Type Description Date Medical History HIV Medical History Colitis Medical History chronic pain Medical History depression Surgical History No know Surgical history
--- OUTSIDE RECORDS SUMMARY | 2019-07-04 12:01 | XMS REPORT ---
Author Author Sergio iL [facility] Address [address] [place], [place] [id number] Care Team Providers Care Entry Tech Name Role Phone Shana Li Unavailable PROBLEMS Type Condition ICD9-CM Code LHC41-ED Code Onset Dates Condition S tatus SNOMED Code Problem Mild intermittent asthma without complication J45. 20 Active 814599562 Problem Iron deficiency anemia due to chronic blood loss D 50.0 Active 12293231 Problem Other osteoarthritis involving multiple joints M15 .8 Active 129462363 Problem Asymptomatic human immunodeficiency virus (HIV) infect ion status Z21 Active 79866747 Problem Other and unspecified noninfectious gastroenteritis an d colitis K52.9 Active 72553892 Problem Nicotine dependence, cigarettes, uncomplicated F17 .210 Active 91966375 Problem Other chronic pain G89.29 Active 8 2349598 Problem Generalized anxiety disorder F41.1 A ctive 48278305 Problem GERD with esophagitis K21.0 Active 645084994 Problem Functional diarrhea K59.1 Active 18951718 Problem Major depressive disorder, recurrent, moderate F33 .1 Active 908419148 Problem Loss of appetite R63.0 Active [id number] ALLERGIES No Information ENCOUNTERS Encounter Location Date Diagnosis [facility] [address] [place], [place] [id number] Sep, Asymptomatic human immunodef iciency virus (HIV) infection status Z21 and GERD with esophagitis K21.0 [facility] [address] [place] [address] Sep, [address] [address] Sep, Loss of appetite R63.0 and Other chronic pain G89.[address] [address] Sep, Other chronic pain G89.[address] [place] [address] Aug, Other chronic pain G89.29 [facility] [address] [place] [address] Aug, Other chronic pain G89.29 [facility] [address] [place] [address] July, Other chronic pain G89.29 [facility] [address] [place] [address] July, [facility] [address] [place] [address] July, [facility] [address] [place] [address] July, Other chronic pain G89.29 [facility] [address] [place] [address] July, [facility] [address] [place] [address] July, Other chronic pain G89.29 [facility] [address] [place] [address] Jun, [facility] [address] [place] [address] Jun, Other chronic pain G89.29 [facility] [address] [place] [address] Jun, [facility] [address] [place] [address] Jun, Other chronic pain G89.29 [facility] [address] [place] [address] May, Other chronic pain G89.29 [facility] [address] [place] [address] May, [facility] [address] [place] [address] May, [facility] [address] [place] [address] May, [facility] [address] [place] [address] May, [facility] [address] [place] [address] May, [facility] [address] [place] [address] Apr, [facility] [address] [place] [address] Apr, [facility] [address] [place] [address] Apr, [facility] [address] [place] [address] Apr, [facility] [address] [place] [address] Apr, [facility] [address] [place] [address] Apr, [facility] [address] [place] [address] Apr, [facility] [address] [place] [address] Apr, [facility] [address] [place] [address] Apr, [facility] [address] [place] [address] Apr, Other chronic pain G89.29 [facility] [address] [place] [address] Apr, [facility] [address] [place] [id number] Apr, Asymptomatic human immunodef iciency virus (HIV) infection status Z21 ; Other chronic pain G89.29 and Screening for cardiovascular condition Z13.6 [facility] [address] [place] [address] Apr, [facility] [address] [place] [address] Apr, [facility] [address] [place] [address] Apr, [facility] [address] [place] [address] Apr, Other chronic pain G89.29 [facility] [address] [place] [address] Mar, Loss of appetite R63.0 [facility] [address] [place] [address] Mar, [facility] [address] [place] [address] Mar, [facility] [address] [place] [address] Mar, [facility] [address] [place] [address] Mar, [facility] [address] [place] [address] Mar, Other chronic pain G89.29 [facility] [address] [place] [address] Mar, [facility] [address] [place] [address] Mar, [facility] [address] [place] [address] Mar, [facility] [address] [place] [address] Mar, Other chronic pain G89.29 [facility] [address] [facility] [place] [phone] Mar, Asymptomatic human immunodeficiency viru s (HIV) infection status Z21 [facility] [address] [place] [address] Mar, Other chronic pain G89.29 [facility] [address] [place] [address] Mar, [facility] [address] [place] [address] Mar, [facility] [address] [place] [address] Feb, Other chronic pain G89.29 [facility] [address] [place] [address] Feb, Other chronic pain G89.29 [facility] [address] [place], [place] [address] [place] [phone] Feb, Other chronic pain G89.29 [facility] [address] [place], [place] [phone] Feb, Asymptomatic human immunodef iciency virus (HIV) infection status Z21 and Other chronic pain G89.29 [facility] [address] [place] [address] Jan, Other chronic pain G89.29 [facility] [address] [place] [address] Jan, Other chronic pain G89.29 [facility] [address] [place] [address] Jan, Asymptomatic human immunodeficiency viru s (HIV) infection status Z21 [facility] [address] [place] [address] Jan, Other chronic pain G89.29 [facility] [address] [place] [address] Jan, [facility] [address] [place] [address] Dec, Other chronic pain G89.29 [facility] [address] [place] [address] Dec, Other chronic pain G89.[address] [id number] Nov, Asymptomatic human immunodef iciency virus (HIV) infection status Z21 ; Influenza vaccine needed Z23 and Other chronic pain G89.29 [facility] [address] [place] [address] Nov, Other chronic pain G89.29 [facility] [address] [place] [address] Oct, [facility] [address] [place] [address] Oct, Other chronic pain G89.29 [facility] [address] [place] [address] Oct, [address] [id number] Sep, Asymptomatic human immunodef iciency virus (HIV) infection status Z21 ; Other chronic pain G89.29 and Generalized anxiety disorder F41.1 [facility] [address] [place] [address] Jun, [facility] [address] [place] [address] Jun, [facility] [address] [place] [address] Jun, [address] [phone] Jun, Asymptomatic human immunodef iciency virus (HIV) infection status Z21 ; Need for pneumococcal vaccine Z23 ; Major depressive disorder, recurrent, moderate F33.1 ; Loss of appetite R63.0 ; Other chronic pain G89.29 ; Other and unspecified noninfectious gastroenteritis and colitis K52.9 and Nausea R11.0 [facility] [address] [address] Jun, [facility] [address] [place] [address] Jun, Acute right ankle pain M25.571 [facility] [address] [address] May, [facility] [address] [address] May, Acute right ankle pain M25.571 [facility] [address] [place] [address] Apr, [facility] [address] [place] [address] Apr, [facility] [address] [place] [address] Mar, Acute right ankle pain M25.571 [facility] [address] [place] [address] Mar, [facility] [address] [place] [address] Mar, [facility] [address] [place] [address] Mar, [facility] [address] [place] [address] Mar, [facility] [address] [place] [address] Mar, [facility] [address] [place] [address] Mar, Nausea and vomiting, intractability of v omiting not specified, unspecified vomiting type R11.2 [facility] [address] [place] [address] Mar, [facility] [address] [place] [address] Mar, Loss of appetite R63.0 [facility] [address] [place] [address] Mar, [facility] [address] [place] [address] Mar, [facility] [address] [place] [address] Mar, [facility] [address] [place] [address] Feb, Abscess L02.91 [facility] [address] [place] [address] Feb, Acute right ankle pain M25.571 [facility] [address] [place] [address] Feb, [facility] [address] [place] [address] Feb, [facility] [address] [place] [address] Feb, [facility] [address] [place] [address] Feb, Acute right ankle pain M25.571 [facility] [address] [place] [address] Feb, Abscess L02.[address] [place] [id number] Jan, Asymptomatic human immunodef iciency virus (HIV) infection status Z21 ; Influenza vaccine needed Z23 and Acute right ankle pain M25.571 [facility] [address] [place] [address] Jan, Abscess L02.91 [facility] [address] [place] [address] Nov, [facility] [address] [place] [address] Nov, Abscess L02.91 [facility] [address] [place] [address] Nov, Anxiety F41.9 [facility] [address] [place] [address] Nov, Acute right ankle pain M25.571 [facility] [address] [place] [address] 15 Nov, 2016 [facility] [address] [place] [address] Nov, [facility] [address] [place] [address] Nov, Hiccups R06.6 [facility] [address] [place] [address] Nov, [facility] [address] [place] [address] Nov, [facility] [address] [place] [address] Nov, [facility] [address] [place] [address] Nov, [facility] [address] [place] [address] Nov, [facility] [address] [place] [address] Nov, [facility] [address] [place] [address] Oct, [facility] [address] [place] [address] Oct, [facility] [address] [place] [address] Oct, [facility] [address] [place] [address] Oct, Abscess L02.91 [facility] [address] [place] [address] Oct, [facility] [address] [place] [address] Oct, [facility] [address] [place] [address] Oct, [facility] [address] [place] [address] Oct, Abscess L02.91 and Acute right ankle ta n M25.571 [facility] [address] [place] [address] Oct, [facility] [address] [place] [address] Oct, [facility] [address] [place] [address] Oct, Abscess L02.91 [facility] [address] [place] [address] Oct, [facility] [address] [place] [address] Oct, [facility] [address] [place] [phone] Oct, Asymptomatic human immunodef iciency virus (HIV) infection status Z21 ; salvage determiner current use of opiate analgesic Z79.891 ; Nicotine dependence, cigarettes, uncomplicated F17.210 ; Iron deficiency anemia due to chronic blood loss D50.0 ; GERD with esophagitis K21.0 ; Major depressive disorder, recurrent, moderate F33.1 and Generalized anxiety disorder F41.1 [facility] [address] [place] [address] Sep, Major depressive disorder, recurrent, mo derate F33.1 [facility] [address] [place] [address] Sep, [facility] [address] [place] [address] Sep, [facility] [address] [place] [address] Sep, [facility] [address] [place] [address] Sep, [facility] [address] [place] [address] Sep, [facility] [address] [place] [address] Aug, [facility] [address] [place] [address] Aug, [facility] [address] [place] [address] Aug, [facility] [address] [place] [address], [place] [address] Aug, Loss of appetite R63.0 ; Major depressiv e disorder, recurrent, moderate F33.1 and Functional diarrhea K59.1 [facility] [address] [place] [address] Aug, Acute hemorrhoid K64.9 and Other osteoar thritis involving multiple joints M15.8 [facility] [address] [place] [address] Aug, Abscess L02.91 [facility] [address] [place] [address] July, Chronic diarrhea K52.9 [facility] [address] [place] [address] July, [facility] [address] [place] [id number] July, Asymptomatic human immunodef iciency virus (HIV) infection status Z21 ; Nicotine dependence, cigarettes, uncomplicated F17.210 ; Chronic diarrhea K52.9 ; Abscess L02.91 ; GERD with esophagitis K21.0 ; Anxiety F41.9 and 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 [facility] [address] [place] [address] Jun, Pain in joint involving multiple sites M 25.50 [facility] [address] [place] [address] Jun, [address] [address] Jun, Pain in joint involving multiple sites M 25.[address] [address] Jun, Pain in joint involving multiple sites M 25.50 ; GERD with esophagitis K21.0 and Intractable hiccups R06.[address] [address] May, Pain in joint involving multiple sites M 25.[address] [address] Apr, Pain in joint involving multiple sites M 25.50 and Anxiety F41.[address] [address] Apr, [address] [address] Apr, Chronic diarrhea K52.9 and Pain in joint involving multiple sites M25.50 [facility] [address] [place] [id number] 10 Apr, 2016 Asymptomatic human immunodef iciency virus (HIV) infection status Z21 ; Mild intermittent asthma without complication J45.20 ; Iron deficiency anemia due to chronic blood loss D50.0 ; Screening, lipid Z13.220 ; Chronic diarrhea K52.9 ; Abscess L02.91 and Projectile vomiting with nausea R11.[address] [address] Feb, Acute hemorrhoid K64.[address] [address] Jan, [address] [address] Jan, Nausea and vomiting, intractability of v omiting not specified, unspecified vomiting type R11.2 and Acute right ankle pain M25.571 [facility] [address] [place] [address] Jan, [facility] [address] [place] [address] Jan, Asymptomatic human immunodeficiency viru s (HIV) infection status Z21 ; Iron deficiency anemia due to chronic blood loss D50.0 and Generalized abdominal pain R10.84 [facility] [address] [facility] [place] [id number] Dec, Asymptomatic human immunodef iciency virus (HIV) infection status Z21 ; Mild intermittent asthma without complication J45.20 ; Influenza vaccine needed Z23 and Nicotine dependence, cigarettes, uncomplicated F17.210 [facility] [address] [id number] 2 9 Oct, 2013 [facility] [address] [facility] [address] [place] [id number] 8 Oct, 2013 [facility] [address] [place] [address] 08 May, 2012 [facility] [address] [place] [address] 14 Feb, 2012 [facility] [address] [place] [address] Nov, [facility] [address] [place] [address] Aug, [facility] [address] [place] [address] Apr, [facility] [address] [facility] [address] [place] [id number] 8 Jan, 2011 IMMUNIZATIONS No Known Immunizations SOCIAL HISTORY Never Assessed REASON FOR VISIT pt here for follow up PLAN OF CARE Activity Details Follow Up 4 months Reason: Pending Test Human Immunodeficiency Virus (HIV-1), Quantitative, Real-time PCR (graph) 42782 Pending Test Rapid Plasma Reagin (RPR), Q ualitative Test 92237 Pending Test Hemoglobin (Hb) A1c with eAG Estimation Pending Test Metabolic Panel (14), Compre hensive (CMP) 27652 Pending Test CD4/CD8 Ratio Profile 18393 VITAL SIGNS Height 65.5 in 2018-09-13 Weight 148 lbs 2018-09-13 Temperature 99.1 degrees Fahrenheit 2018-09-13 Heart Rate 92 /min 2018-09-13 Respiratory Rate 20 /min 2018-09-13 Oximetry 98 % 2018-09-13 BMI 24.25 kg/m2 2018-09-13 Blood pressure systolic 128 mm Hg 2018-09-13 Blood pressure diastolic 74 mm Hg 2018-09-13 MEDICATIONS Medication Instructions Dosage Frequency Start Date End Date Duration S tat Biktarvy 50 MG/200 MG/25 MG Orally Once daily 1 tablet 24h 15 2018 30 days Active Dronabinol 10MG TAKE ONE CAPSULE BY MOUTH TWICE DAILY Active Percocet 7.5-325 MG Orally every 6 hrs 1 tablet as needed 6h 11 Apr, 2016 7 days Active Marinol 10 MG Orally twice a day 1 capsule 12h 24 Aug, 2016 30 days Active Genvoya 150 mg/150 mg/200/mg/10 mg Oral Once a day 1 tablet 24h Jan, 30 days Not-Taking RESULTS No Results PROCEDURES Procedure Date Ordered Result Body Site BLOOD SEROLOGY, QUALITATIVE September 13, 2018 GLYCATED HEMOGLOBIN TEST SO September 13, 2018 COMPREHEN METABOLIC PANEL September 13, 2018 HIV-1, DNA, QUANT September 13, 2018 T CELL, ABSOLUTE COUNT/RATIO September 13, 2018 INSTRUCTIONS MEDICATIONS ADMINISTERED No Known Medications MEDICAL (GENERAL) HISTORY Type Description Date Medical History HIV Medical History Colitis Medical History chronic pain Medical History depression Surgical History No Surgical history information
--- OUTSIDE RECORDS SUMMARY | 2019-07-04 12:01 | XMS REPORT ---
Author Author Sergio Adams [facility] Address [address], [place] [id number] Care Team Providers [employer] Name Role Phone Araseli Adams Unavailable PROBLEMS Type Condition ICD9-CM Code AXO71-TE Code Onset Dates Condition S tatus SNOMED Code Problem Mild intermittent asthma without complication J45. 20 Active 718217486 Problem Iron deficiency anemia due to chronic blood loss D 50.0 Active 27658252 Problem Other osteoarthritis involving multiple joints M15 .8 Active 237365950 Problem Asymptomatic human immunodeficiency virus (HIV) infect ion status Z21 Active 81521146 Problem Other and unspecified noninfectious gastroenteritis an d colitis K52.9 Active 38786466 Problem Nicotine dependence, cigarettes, uncomplicated F17 .210 Active 22505793 Problem Other chronic pain G89.29 Active 8 6486833 Problem Generalized anxiety disorder F41.1 A ctive 35481393 Problem GERD with esophagitis K21.0 Active 587256326 Problem Functional diarrhea K59.1 Active 02369937 Problem Major depressive disorder, recurrent, moderate F33 .1 Active 538929283 Problem Loss of appetite R63.0 Active [id number] ALLERGIES No Information ENCOUNTERS Encounter Location Date Diagnosis [facility], [place], operated [facility] [address] [place] [address] [place] [phone] Sep, [facility] [address] [place] [address] Sep, Other chronic pain G89.29 [facility] [address] [place] [address] Aug, Other chronic pain G89.29 [facility] [address] [place] [address] Aug, Other chronic pain G89.29 [facility] [address] [place] [address] July, Other chronic pain G89.29 [facility] [address] [place] [address] July, [facility] [address] [place] [address] July, [facility] [address] [place] [address] July, Other chronic pain G89.29 [facility] [address] [place] [address] July, [facility] [address] [place] [address] July, Other chronic pain G89.29 [facility] [address] [place] [address] Jun, [facility] [address] [place] [address] Jun, Other chronic pain G89.29 [facility] [address] [place] [address] Jun, [facility] [address] [place] [address] Jun, Other chronic pain G89.29 [facility] [address] [place] [address] May, Other chronic pain G89.29 [facility] [address] [place] [address] May, [facility] [address] [place] [address] May, [facility] [address] [place] [address] May, [facility] [address] [place] [address] May, [facility] [address] [place] [address] May, [facility] [address] [place] [address] Apr, [facility] [address] [place] [address] Apr, [facility] [address] [place] [address] Apr, [facility] [address] [place] [address] Apr, [facility] [address] [place] [address] Apr, [facility] [address] [place] [address] Apr, [facility] [address] [place] [address] Apr, [facility] [address] [place] [address] Apr, [facility] [address] [place] [address] Apr, [facility] [address] [facility] [place] [address] Apr, Other chronic pain G89.29 [facility] [address] [facility] [place] [address] Apr, [facility] [address] [phone] Apr, Asymptomatic human immunodef iciency virus (HIV) infection status Z21 ; Other chronic pain G89.29 and Screening for cardiovascular condition Z13.6 [facility] [address] [place] [address] Apr, [facility] [address] [facility] [place] [address] Apr, [facility] [address] [place] [address] Apr, [facility] [address] [facility] [place] [address] Apr, Other chronic pain G89.29 [facility] [address] [place] [address] Mar, Loss of appetite R63.0 [facility] [address] [facility] [place] [address] Mar, [facility] [address] [place] [address] Mar, [facility] [address] [place] [address] Mar, [facility] [address] [place] [address] Mar, [facility] [address] [place] [address] Mar, Other chronic pain G89.29 [facility] [address] [place] [address] Mar, [facility] [address] [place] [address] Mar, [facility] [address] [place] [address] Mar, [facility] [address] [place] [address] Mar, Other chronic pain G89.29 [facility] [address] [facility] [place] [phone] Mar, Asymptomatic human immunodeficiency viru s (HIV) infection status Z21 [facility] [address] [place] [address] Mar, Other chronic pain G89.29 [facility] [address] [facility] [place] [address] Mar, [facility] [address] [place] [address] Mar, [facility] [address] [place] [address] Feb, Other chronic pain G89.29 [facility] [address] [place] [address] Feb, Other chronic pain G89.29 [facility] [address] [facility] [place] [id number] Feb, Other chronic pain G89.29 [facility] [place], [facility] [address] [facility] [place] [phone] Feb, Asymptomatic human immunodef iciency virus (HIV) infection status Z21 and Other chronic pain G89.29 [facility] [address] [place] [address] Jan, Other chronic pain G89.29 [facility] [address] [place] [address] Jan, Other chronic pain G89.29 [facility] [address] [place] [address] Jan, Asymptomatic human immunodeficiency viru s (HIV) infection status Z21 [facility] [address] [place] [address] Jan, Other chronic pain G89.29 [facility] [address] [place] [address] Jan, [facility] [address] [place] [address] Dec, Other chronic pain G89.29 [facility] [address] [place] [address] Dec, Other chronic pain G89.29 [facility] [address] [id number] Nov, Asymptomatic human immunodef iciency virus (HIV) infection status Z21 ; Influenza vaccine needed Z23 and Other chronic pain G89.29 [facility] [address] [place] [address] Nov, Other chronic pain G89.29 [facility] [address] [place] [address] Oct, [facility] [address] [place] [address] Oct, Other chronic pain G89.29 [facility] [address] [place] [address] Oct, [facility] [address] [phone] Sep, Asymptomatic human immunodef iciency virus (HIV) infection status Z21 ; Other chronic pain G89.29 and Generalized anxiety disorder F41.1 [facility] [address] [place] [address] Jun, [facility] [address] [place] [address] Jun, [facility] [address] [place] [address] Jun, [facility] [place], [facility] [address] [facility] [place] [phone] Jun, Asymptomatic human immunodef iciency virus (HIV) infection status Z21 ; Need for pneumococcal vaccine Z23 ; Major depressive disorder, recurrent, moderate F33.1 ; Loss of appetite R63.0 ; Other chronic pain G89.29 ; Other and unspecified noninfectious gastroenteritis and colitis K52.9 and Nausea R11.0 [facility] [address] [place] [address] Jun, [facility] [address] [place] [address] Jun, Acute right ankle pain M25.571 [facility] [address] [place] [address] May, [facility] [address] [place] [address] May, Acute right ankle pain M25.571 [facility] [address] [place] [address] Apr, [facility] [address] [place] [address] Apr, [facility] [address] [place] [address] Mar, Acute right ankle pain M25.571 [facility] [address] [place] [address] Mar, [facility] [address] [place] [address] Mar, [facility] [address] [place] [address] Mar, [facility] [address] [place] [address] Mar, [facility] [address] [place] [address] Mar, [facility] [address] [place] [address] Mar, Nausea and vomiting, intractability of v omiting not specified, unspecified vomiting type R11.2 [facility] [address] [facility] [place] [address] Mar, [facility] [address] [place] [address] Mar, Loss of appetite R63.0 [facility] [address] [facility] [place] [address] Mar, [facility] [address] [facility] [place] [address] Mar, [facility] [address] [facility] [place] [address] Mar, [facility] [address] [place] [address] Feb, Abscess L02.91 [facility] [address] [place] [address] Feb, Acute right ankle pain M25.[address] [address] Feb, [facility] [address] [place] [address] Feb, [facility] [address] [place] [address] Feb, [facility] [address] [place] [address] Feb, Acute right ankle pain M25.571 [facility] [address] [place] [address] Feb, Abscess L02.91 [facility] [place], [facility] [address] [place] [phone] Jan, Asymptomatic human immunodef iciency virus (HIV) infection status Z21 ; Influenza vaccine needed Z23 and Acute right ankle pain M25.571 [facility] [address] [place] [address] Jan, Abscess L02.91 [facility] [address] [place] [address] 28 Nov, 2016 [facility] [address] [place] [address] Nov, Abscess L02.91 [facility] [address] [place] [address] Nov, Anxiety F41.9 [facility] [address] [place] [address] 25 Nov, 2016 Acute right ankle pain M25.571 [facility] [address] [place] [address] 15 Nov, 2016 [facility] [address] [place] [address] 14 Nov, 2016 [facility] [address] [place] [address] 14 Nov, 2016 Hiccups R06.6 [facility] [address] [place] [address] 13 Nov, 2016 [facility] [address] [place] [address] 08 Nov, 2016 [facility] [address] [place] [address] 08 Nov, 2016 [facility] [address] [place] [address] 06 Nov, 2016 [facility] [address] [place] [address] Nov, [facility] [address] [place] [address] 05 Nov, 2016 [facility] [address] [place] [address] Oct, [facility] [address] [place] [address] Oct, [facility] [address] [place] [address] Oct, [facility] [address] [place] [address] Oct, Abscess L02.91 [facility] [address] [place] [address] Oct, [facility] [address] [place] [address] Oct, [facility] [address] [place] [address] Oct, [facility] [address] [place] [address] Oct, Abscess L02.91 and Acute right ankle ta n M25.571 [facility] [address] [place] [address] Oct, [facility] [address] [place] [address] Oct, [facility] [address] [place] [address] Oct, Abscess L02.91 [facility] [address] [facility] [place] [address] Oct, [facility] [address] [facility] [place] [address] Oct, [facility] [place], [facility] [address] [place] [phone] Oct, Asymptomatic human immunodef iciency virus (HIV) infection status Z21 ; penitentiary current use of opiate analgesic Z79.891 ; Nicotine dependence, cigarettes, uncomplicated F17.210 ; Iron deficiency anemia due to chronic blood loss D50.0 ; GERD with esophagitis K21.0 ; Major depressive disorder, recurrent, moderate F33.1 and Generalized anxiety disorder F41.1 [facility] [address] [place] [address] Sep, Major depressive disorder, recurrent, mo derate F33.1 [facility] [address] [place] [address] Sep, [facility] [address] [facility] [place] [address] Sep, [facility] [address] [place] [address] Sep, [facility] [address] [facility] [place] [address] Sep, [facility] [address] [place] [address] Sep, [facility] [address] [place] [address] Aug, [facility] [address] [place] [address] Aug, [address] [address] Aug, [address] [address] Aug, Loss of appetite R63.0 ; Major depressiv e disorder, recurrent, moderate F33.1 and Functional diarrhea K59.[address] [address] Aug, Acute hemorrhoid K64.9 and Other osteoar thritis involving multiple joints M15.[address] [address] Aug, Abscess L02.[address] [address] July, Chronic diarrhea K52.[address] [address] July, [facility] [address] [phone] July, Asymptomatic human immunodef iciency virus (HIV) infection status Z21 ; Nicotine dependence, cigarettes, uncomplicated F17.210 ; Chronic diarrhea K52.9 ; Abscess L02.91 ; GERD with esophagitis K21.0 ; Anxiety F41.9 and 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 [address] Jun, Pain in joint involving multiple sites M 25.[address] [address] Jun, [address] [address] Jun, Pain in joint involving multiple sites M 25.[address] [facility] [address] Jun, Pain in joint involving multiple sites M 25.50 ; GERD with esophagitis K21.0 and Intractable hiccups R06.[address] [address] May, Pain in joint involving multiple sites M 25.[address] [address] Apr, Pain in joint involving multiple sites M 25.50 and Anxiety F41.[address] [address] 17 Apr, [address] [address] Apr, Chronic diarrhea K52.9 and Pain in joint involving multiple sites M25.50 [facility] [place], [facility] [address] [place] [phone] Apr, Asymptomatic human immunodef iciency virus (HIV) infection status Z21 ; Mild intermittent asthma without complication J45.20 ; Iron deficiency anemia due to chronic blood loss D50.0 ; Screening, lipid Z13.220 ; Chronic diarrhea K52.9 ; Abscess L02.91 and Projectile vomiting with nausea R11.[address] [address] Feb, Acute hemorrhoid K64.[address] [address] Jan, [address] [address] Jan, Nausea and vomiting, intractability of v omiting not specified, unspecified vomiting type R11.2 and Acute right ankle pain M25.[address] [address] Jan, [address] [address] 09 Jan, 2016 Asymptomatic human immunodeficiency viru s (HIV) infection status Z21 ; Iron deficiency anemia due to chronic blood loss D50.0 and Generalized abdominal pain R10.84 [facility] [address] [facility] [place] [phone] Dec, Asymptomatic human immunodef iciency virus (HIV) infection status Z21 ; Mild intermittent asthma without complication J45.20 ; Influenza vaccine needed Z23 and Nicotine dependence, cigarettes, uncomplicated F17.210 [facility] [address] [id number] 2 9 Oct, 2013 [facility] [address] [id number] 2 8 Oct, 2013 [facility] [address] [place] [address] May, [facility] [address] [place] [address] Feb, [facility] [address] [place] [address] 14 Nov, 2011 [facility] [address] [place] [address] Aug, [facility] [address] [place] [address] Apr, [facility] [address] [id number] 1 8 Jan, 2011 IMMUNIZATIONS No Known [...]
--- OUTSIDE RECORDS SUMMARY | 2019-07-04 12:02 | XMS REPORT ---
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 20 Active 613732563 Problem Iron deficiency anemia due to chronic blood loss D 50.0 Active 38120232 Problem Other osteoarthritis involving multiple joints M15 .8 Active 666720823 Problem Asymptomatic human immunodeficiency virus (HIV) infect ion status Z21 Active 49164833 Problem Other and unspecified noninfectious gastroenteritis an d colitis K52.9 Active 09836656 Problem Nicotine dependence, cigarettes, uncomplicated F17 .210 Active 57262215 Problem Other chronic pain G89.29 Active 8 7022654 Problem Generalized anxiety disorder F41.1 A ctive 73932803 Problem GERD with esophagitis K21.0 Active 686641066 Problem Functional diarrhea K59.1 Active 42447229 Problem Major depressive disorder, recurrent, moderate F33 .1 Active 152357642 Problem Loss of appetite R63.0 Active [id number] 49971 ALLERGIES No Information ENCOUNTERS Encounter Location Date Diagnosis [facility] [address] [place] [address] [place] [id number] Sep, [facility] [address] [place] [address] July, [facility] [address] [place] [address] July, [facility] [address] [place] [address] July, Other chronic pain G89.29 [facility] [address] [place] [address] July, [facility] [address] [place] [address] July, Other chronic pain G89.29 [facility] [address] [facility] [address] Jun, [facility] [address] [facility] [place] [address] Jun, Other chronic pain G89.29 [facility] [address] [facility] [place] [address] Jun, [facility] [address] [facility] [place] [address] Jun, Other chronic pain G89.29 [facility] [address] [facility] [place] [address] May, Other chronic pain G89.29 [facility] [address] [facility] [place] [facility] [place] [address] May, [facility] [address] [facility] [place] [facility] [place] [address] May, [facility] [address] [facility] [place] [facility] [place] [address] May, [facility] [address] [facility] [place] [facility] [place] [address] May, [facility] [address] [facility] [place] [facility] [place] [address] May, [facility] [address] [facility] [place] [facility] [place] [address] Apr, [facility] [address] [facility] [place] [facility] [place] [address] Apr, [facility] [address] [facility] [place] [facility] [place] [address] Apr, [facility] [address] [facility] [place] [facility] [place] [address] Apr, [facility] [address] [facility] [place] [facility] [place] [address] Apr, [facility] [address] [facility] [place] [facility] [place] [address] Apr, [facility] [address] [facility] [place] [facility] [place] [address] Apr, [facility] [address] [facility] [place] [address] Apr, [facility] [address] [place] [address] Apr, [facility] [address] [facility] [place] [facility] [place] [address] Apr, Other chronic pain G89.29 [facility] [address] [place] [address] Apr, [facility] [address] [facility] [place] [id number] Apr, Asymptomatic human immunodef iciency virus (HIV) infection status Z21 ; Other chronic pain G89.29 and Screening for cardiovascular condition Z13.6 [facility] [address] [facility] [place] [address] Apr, [facility] [address] [place] [address] Apr, [facility] [address] [place] [address] Apr, [facility] [address] [place] [address] Apr, Other chronic pain G89.29 [facility] [address] [place] [address] Mar, Loss of appetite R63.0 [facility] [address] [place] [address] Mar, [facility] [address] [place] [address] Mar, [facility] [address] [place] [address] Mar, [facility] [address] [place] [address] Mar, [facility] [address] [place] [address] Mar, Other chronic pain G89.29 [facility] [address] [place] [address] Mar, [facility] [address] [facility] [place] [address] Mar, [facility] [address] [facility] [place] [address] Mar, [facility] [address] [facility] [place] [address] Mar, Other chronic pain G89.29 [facility] [address] [place] [address], [place] [id number] Mar, Asymptomatic human immunodeficiency viru s (HIV) infection status Z21 [facility] [address] [facility] [place] [address] Mar, Other chronic pain G89.29 [facility] [address] [place] [address] Mar, [facility] [address] [facility] [place] [address] Mar, [facility] [address] [facility] [place] [address] Feb, Other chronic pain G89.29 [facility] [address] [place] [address] Feb, Other chronic pain G89.29 [facility] [address] [facility] [place] [id number] Feb, Other chronic pain G89.29 [facility] [address] [facility] [place] [id number] Feb, Asymptomatic human immunodef iciency virus (HIV) infection status Z21 and Other chronic pain G89.29 [facility] [address] [place] [address] Jan, Other chronic pain G89.29 [facility] [address] [place] [address] Jan, Other chronic pain G89.29 [facility] [address] [place] [address] Jan, Asymptomatic human immunodeficiency viru s (HIV) infection status Z21 [facility] [address] [place] [address] Jan, Other chronic pain G89.29 [facility] [address] [place] [address] Jan, [facility] [address] [place] [address] Dec, Other chronic pain G89.29 [facility] [address] [place] [address] Dec, Other chronic pain G89.29 [facility] [address] [id number] Nov, Asymptomatic human immunodef iciency virus (HIV) infection status Z21 ; Influenza vaccine needed Z23 and Other chronic pain G89.29 [facility] [address] [place] [address] 05 Nov, 2017 Other chronic pain G89.[address] [address] Oct, [facility] [address] [place] [address] Oct, Other chronic pain G89.29 [facility] [address] [place] [address] Oct, [address] [id number] Sep, Asymptomatic human immunodef iciency virus (HIV) infection status Z21 ; Other chronic pain G89.29 and Generalized anxiety disorder F41.[address] [address] Jun, [facility] [address] [place] [address] Jun, [facility] [address] [place] [address] Jun, [facility] [address] [id number] Jun, Asymptomatic human immunodef iciency virus (HIV) infection status Z21 ; Need for pneumococcal vaccine Z23 ; Major depressive disorder, recurrent, moderate F33.1 ; Loss of appetite R63.0 ; Other chronic pain G89.29 ; Other and unspecified noninfectious gastroenteritis and colitis K52.9 and Nausea R11.0 [facility] [address] [place] [address] Jun, [facility] [address] [place] [address] Jun, Acute right ankle pain M25.571 [facility] [address] [place] [address] May, [facility] [address] [place] [address] May, Acute right ankle pain M25.571 [facility] [address] [place] [address] Apr, [facility] [address] [place] [address] Apr, [facility] [address] [place] [address] Mar, Acute right ankle pain M25.571 [facility] [address] [place] [address], [place] [address] Mar, [facility] [address] [place] [address] Mar, [facility] [address] [place] [address] Mar, [facility] [address] [place] [address] Mar, [facility] [address] [place] [address] Mar, [facility] [address] [place] [address] Mar, Nausea and vomiting, intractability of v omiting not specified, unspecified vomiting type R11.2 [facility] [address] [place] [address] Mar, [facility] [address] [place] [address] Mar, Loss of appetite R63.0 [facility] [address] [place] [address] Mar, [facility] [address] [facility] [place] [address] Mar, [facility] [address] [facility] [place] [facility] [place] [address] Mar, [facility] [address] [facility] [place] [facility] [place] [address] Feb, Abscess L02.91 [facility] [address] [place] [address] Feb, Acute right ankle pain M25.571 [facility] [address] [place] [address] Feb, [facility] [address] [place] [address] Feb, [facility] [address] [place] [address] Feb, [facility] [address] [place] [address] Feb, Acute right ankle pain M25.571 [facility] [address] [place] [address] Feb, Abscess L02.91 [facility] [address] [place] [id number] Jan, Asymptomatic human immunodef iciency virus (HIV) infection status Z21 ; Influenza vaccine needed Z23 and Acute right ankle pain M25.571 [facility] [address] [place] [address] Jan, Abscess L02.91 [facility] [address] [place] [address] Nov, [facility] [address] [place] [address] Nov, Abscess L02.91 [facility] [address] [place] [address] Nov, Anxiety F41.[address] [facility] [address] [place] [address] Nov, Acute right ankle pain M25.571 [facility] [address] [place] [address], [place] [address] 15 Nov, 2016 [facility] [address] [facility] [place] [address] 14 Nov, 2016 [facility] [address] [facility] [place] [address] 14 Nov, 2016 Hiccups R06.6 [facility] [address] [facility] [place] [facility] [place] [address] 13 Nov, 2016 [facility] [address] [facility] [place] [facility] [place] [address] 08 Nov, 2016 [facility] [address] [facility] [place] [facility] [place] [address] 08 Nov, 2016 [facility] [address] [facility] [place] [facility] [place] [address] Nov, [facility] [address] [facility] [place] [facility] [place] [address] Nov, [facility] [address] [facility] [place] [address] Nov, [facility] [address] [facility] [place] [address] Oct, [facility] [address] [facility] [place] [address] Oct, [facility] [address] [facility] [place] [facility] [place] [address] Oct, [facility] [address] [facility] [place] [facility] [place] [address] Oct, Abscess L02.91 [facility] [address] [facility] [place] [facility] [place] [address] Oct, [facility] [address] [facility] [place] [address] Oct, [facility] [address] [facility] [place] [facility] [place] [address] Oct, [facility] [address] [facility] [place] [facility] [place] [address] Oct, Abscess L02.91 and Acute right ankle ta n M25.571 [facility] [address] [facility] [place] [address] Oct, [facility] [address] [place] [address] Oct, [facility] [address] [place] [address] Oct, Abscess L02.91 [facility] [address] [place] [address] Oct, 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 ; Nicotine dependence, cigarettes, uncomplicated F17.210 ; Iron deficiency anemia due to chronic blood loss D50.0 ; GERD with esophagitis K21.0 ; Major depressive disorder, recurrent, moderate F33.1 and Generalized anxiety disorder F41.1 [facility] [address] [place] [address] Sep, Major depressive disorder, recurrent, mo derate F33.1 [facility] [address] [place] [address] Sep, [facility] [address] [place] [address] Sep, [facility] [address] [place] [address] Sep, [facility] [address] [place] [address] Sep, [facility] [address] [place] [address] Sep, [facility] [address] [place] [address] Aug, [facility] [address] [place] [address] Aug, [facility] [address] [place] [address] Aug, [facility] [address] [place] [address] Aug, Loss of appetite R63.0 ; Major depressiv e disorder, recurrent, moderate F33.1 and Functional diarrhea K59.[address] [address] Aug, Acute hemorrhoid K64.9 and Other osteoar thritis involving multiple joints M15.[address] [address] Aug, Abscess L02.[address] [address] July, Chronic diarrhea K52.[address] [address] July, [facility] [address] [place] [id number] July, Asymptomatic human immunodef iciency virus (HIV) infection status Z21 ; Nicotine dependence, cigarettes, uncomplicated F17.210 ; Chronic diarrhea K52.9 ; Abscess L02.91 ; GERD with esophagitis K21.0 ; Anxiety F41.9 and 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 [address] Jun, Pain in joint involving multiple sites M 25.[address] [address] Jun, [address] [address] Jun, Pain in joint involving multiple sites M 25.[address] [address] Jun, Pain in joint involving multiple sites M 25.50 ; GERD with esophagitis K21.0 and Intractable hiccups R06.[address] [address] May, Pain in joint involving multiple sites M 25.[address] [address] Apr, Pain in joint involving multiple sites M 25.50 and Anxiety F41.[address] [facility] [address] 17 Apr, [address] [address] Apr, Chronic diarrhea K52.9 and Pain in joint involving multiple sites M25.50 [facility] [address] [id number] 10 Apr, 2016 Asymptomatic human immunodef iciency virus (HIV) infection status Z21 ; Mild intermittent asthma without complication J45.20 ; Iron deficiency anemia due to chronic blood loss D50.0 ; Screening, lipid Z13.220 ; Chronic diarrhea K52.9 ; Abscess L02.91 and Projectile vomiting with nausea R11.[address] [address] Feb, Acute hemorrhoid K64.[address] [address] Jan, [address] [address] 26 Jan, 2016 Nausea and vomiting, intractability of v omiting not specified, unspecified vomiting type R11.2 and Acute right ankle pain M25.[address] [address] Jan, [address] [address] 09 Jan, 2016 Asymptomatic human immunodeficiency viru s (HIV) infection status Z21 ; Iron deficiency anemia due to chronic blood loss D50.0 and Generalized abdominal pain R10.84 [facility] [address] [id number] Dec, Asymptomatic human immunodef iciency virus (HIV) infection status Z21 ; Mild intermittent asthma without complication J45.20 ; Influenza vaccine needed Z23 and Nicotine dependence, cigarettes, uncomplicated F17.210 [facility] [address] [facility] [address] [place] [id number] 2 Oct, [facility] [address] [facility] [address] [place] [id number] 2 Oct, [address] [place] [address] 08 May, 2012 [facility] [address] [place] [address] Feb, [facility] [address] [place] [address] Nov, [facility] [address] [place] [address] Aug, [facility] [address] [place] [address] Apr, [facility] [address] [facility] [address] [place], [place] [id number] 1 8 Jan, 2011 IMMUNIZATIONS No Known Immunizations SOCIAL HISTORY Never Assessed REASON FOR VISIT thank PLAN OF CARE VITAL SIGNS MEDICATIONS Unknown Medications RESULTS No Results PROCEDURES No Known procedures INSTRUCTIONS MEDICATIONS ADMINISTERED No Known Medications MEDICAL (GENERAL) HISTORY Type Description Date Medical History HIV Medical History Colitis Medical History chronic pain Medical History depression Surgical History No know Surgical history
--- OUTSIDE RECORDS SUMMARY | 2019-07-04 12:02 | XMS REPORT ---
Author Author Sergio Adams [facility] Address [address] [place], [place] [id number] Care Team Providers Care Manager Convention Name Role Phone Araseli Adams Unavailable PROBLEMS Type Condition ICD9-CM Code CND89-JS Code Onset Dates Condition S tatus SNOMED Code Problem Mild intermittent asthma without complication J45. 20 Active 723110815 Problem Iron deficiency anemia due to chronic blood loss D 50.0 Active 15045740 Problem Other osteoarthritis involving multiple joints M15 .8 Active 891416603 Problem Asymptomatic human immunodeficiency virus (HIV) infect ion status Z21 Active 52878446 Problem Other and unspecified noninfectious gastroenteritis an d colitis K52.9 Active 69597463 Problem Nicotine dependence, cigarettes, uncomplicated F17 .210 Active 19763537 Problem Other chronic pain G89.29 Active 8 7536064 Problem Generalized anxiety disorder F41.1 A ctive 06359585 Problem GERD with esophagitis K21.0 Active 194060376 Problem Functional diarrhea K59.1 Active 27154604 Problem Major depressive disorder, recurrent, moderate F33 .1 Active 390783845 Problem Loss of appetite R63.0 Active 798 79602 ALLERGIES No Information ENCOUNTERS Encounter Location Date Diagnosis [facility] [address] [place] [address] C [place], [place] [id number] Sep, [facility] [address] [place] [address] July, [facility] [address] [place] [address] July, [facility] [address] [place] [address] July, Other chronic pain G89.29 [facility] [address] [place] [address] July, [facility] [address] [place] [address] July, Other chronic pain G89.29 [facility] [address] [place] [place] [address] Jun, [facility] [address] [place] [address] Jun, Other chronic pain G89.29 [facility] [address] [place] [address] Jun, [facility] [address] [place] [address] Jun, Other chronic pain G89.29 [facility] [address] [place] [address] May, Other chronic pain G89.29 [facility] [address] [place] [address] May, [facility] [address] [place] [address] May, [facility] [address] [place] [address] May, [facility] [address] [place] [address] May, [facility] [address] [place] [address] May, [facility] [address] [place] [address] Apr, [facility] [address] [place] [address] Apr, [facility] [address] [place] [address] Apr, [facility] [address] [place] [address] Apr, [facility] [address] [place] [address] Apr, [facility] [address] [place] [address] Apr, [facility] [address] [place] [address] Apr, [facility] [address] [place] [address] Apr, [facility] [address] [place] [address] Apr, [facility] [address] [place] [address] Apr, Other chronic pain G89.29 [facility] [address] [place] [address] Apr, [facility] [address] [facility] [address] [place] [id number] Apr, Asymptomatic human immunodef iciency virus (HIV) infection status Z21 ; Other chronic pain G89.29 and Screening for cardiovascular condition Z13.6 [facility] [address] [place] [address] Apr, [facility] [address] [place] [address] Apr, [facility] [address] [place] [address] Apr, [facility] [address] [place] [address] Apr, Other chronic pain G89.29 [facility] [address] [place] [address] Mar, Loss of appetite R63.0 [facility] [address] [place] [address] Mar, [facility] [address] [place] [address] Mar, [facility] [address] [place] [address] Mar, [facility] [address] [place] [address] Mar, [facility] [address] [place] [address] Mar, Other chronic pain G89.29 [facility] [address] [place] [address] Mar, [facility] [address] [place] [address] Mar, [facility] [address] [place] [address] Mar, [facility] [address] [place] [address] Mar, Other chronic pain G89.29 [facility] [address] [place] [address], S [id number] Mar, Asymptomatic human immunodeficiency viru s (HIV) infection status Z21 [facility] [address] [place] [address] Mar, Other chronic pain G89.29 [facility] [address] [place] [address] Mar, [facility] [address] [place] [address] Mar, [facility] [address] [place] [address] Feb, Other chronic pain G89.29 [facility] [address] [place] [address] Feb, Other chronic pain G89.29 [facility] [address] [facility] [place] [id number] Feb, Other chronic pain G89.29 [facility] [address] [facility] [address] [place] [id number] Feb, Asymptomatic human immunodef iciency virus (HIV) infection status Z21 and Other chronic pain G89.29 [facility] [address] [place] [address] Jan, Other chronic pain G89.29 [facility] [address] [place] [address] Jan, Other chronic pain G89.29 [facility] [address] [place] [address] Jan, Asymptomatic human immunodeficiency viru s (HIV) infection status Z21 [facility] [address] [place] [address] Jan, Other chronic pain G89.29 [facility] [address] [place] [address] Jan, [facility] [address] [place] [address] Dec, Other chronic pain G89.29 [facility] [address] [place] [address] Dec, Other chronic pain G89.29 [facility] [address] [id number] Nov, Asymptomatic human immunodef iciency virus (HIV) infection status Z21 ; Influenza vaccine needed Z23 and Other chronic pain G89.29 [facility] [address] [place] [address] 05 Nov, 2017 Other chronic pain G89.[address] [address] Oct, [facility] [address] [place] [address] Oct, Other chronic pain G89.29 [facility] [address] [place] [address] Oct, [address] [id number] Sep, Asymptomatic human immunodef iciency virus (HIV) infection status Z21 ; Other chronic pain G89.29 and Generalized anxiety disorder F41.[address] [address] Jun, [facility] [address] [place] [address] Jun, [facility] [address] [place] [address] Jun, [facility] [address] [id number] Jun, Asymptomatic human immunodef iciency virus (HIV) infection status Z21 ; Need for pneumococcal vaccine Z23 ; Major depressive disorder, recurrent, moderate F33.1 ; Loss of appetite R63.0 ; Other chronic pain G89.29 ; Other and unspecified noninfectious gastroenteritis and colitis K52.9 and Nausea R11.0 [facility] [address] [place] [address] Jun, [facility] [address] [place] [address] Jun, Acute right ankle pain M25.571 [facility] [address] [place] [address] May, [facility] [address] [place] [address] May, Acute right ankle pain M25.571 [facility] [address] [place] [address] Apr, [facility] [address] [place] [address] Apr, [facility] [address] [place] [address] Mar, Acute right ankle pain M25.571 [facility] [address] [place] [address], [place] [address] Mar, [facility] [address] [place] [address] Mar, [facility] [address] [place] [address] Mar, [facility] [address] [place] [address] Mar, [facility] [address] [place] [address] Mar, [facility] [address] [place] [address] Mar, Nausea and vomiting, intractability of v omiting not specified, unspecified vomiting type R11.2 [facility] [address] [place] [address] Mar, [facility] [address] [place] [address] Mar, Loss of appetite R63.0 [facility] [address] [place] [address] Mar, [facility] [address] [place] [address] Mar, [facility] [address] [place] [address] Mar, [facility] [address] [place] [address] Feb, Abscess L02.91 [facility] [address] [place] [address] Feb, Acute right ankle pain M25.571 [facility] [address] [place] [address] Feb, [facility] [address] [place] [address] Feb, [facility] [address] [place] [address] Feb, [facility] [address] [place] [address] Feb, Acute right ankle pain M25.571 [facility] [address] [place] [address] Feb, Abscess L02.91 [facility] [address] [place] [id number] Jan, Asymptomatic human immunodef iciency virus (HIV) infection status Z21 ; Influenza vaccine needed Z23 and Acute right ankle pain M25.571 [facility] [address] [place] [address] Jan, Abscess L02.91 [facility] [address] [place] [address] Nov, [facility] [address] [place] [address] Nov, Abscess L02.91 [facility] [address] [place] [address] Nov, Anxiety F41.9 [facility] [address] [place] [address] Nov, Acute right ankle pain M25.571 [facility] [address] [place] [address], [place] [address] 15 Nov, 2016 [facility] [address] [place] [address] 14 Nov, 2016 [facility] [address] [place] [address] 14 Nov, 2016 Hiccups R06.6 [facility] [address] [place] [address] 13 Nov, 2016 [facility] [address] [place] [address] 08 Nov, 2016 [facility] [address] [place] [address] 08 Nov, 2016 [facility] [address] [place] [address] Nov, [facility] [address] [place] [address] Nov, [facility] [address] [place] [address] Nov, [facility] [address] [place] [address] Oct, [facility] [address] [place] [address] Oct, [facility] [address] [place] [address] Oct, [facility] [address] [place] [address] Oct, Abscess L02.91 [facility] [address] [place] [address] Oct, [facility] [address] [place] [address] Oct, [facility] [address] [place] [address] Oct, [facility] [address] [place] [address] Oct, Abscess L02.91 and Acute right ankle ta n M25.571 [facility] [address] [place] [address] Oct, [facility] [address] [place] [address] Oct, [facility] [address] [place] [address] Oct, Abscess L02.91 [facility] [address] [place] [address] Oct, [facility] [address] [place] [address] Oct, [facility] [address] [place] [phone] Oct, Asymptomatic human immunodef iciency virus (HIV) infection status Z21 ; 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 ; Nicotine dependence, cigarettes, uncomplicated F17.210 ; Iron deficiency anemia due to chronic blood loss D50.0 ; GERD with esophagitis K21.0 ; Major depressive disorder, recurrent, moderate F33.1 and Generalized anxiety disorder F41.1 [facility] [address] [place] [address] Sep, Major depressive disorder, recurrent, mo derate F33.1 [facility] [address] [place] [address] Sep, [facility] [address] [place] [address] Sep, [facility] [address] [place] [address] Sep, [facility] [address] [place] [address] Sep, [facility] [address] [place] [address] Sep, [facility] [address] [place] [address] Aug, [facility] [address] [place] [address] Aug, [facility] [address] [place] [address] Aug, [facility] [address] [place] [address] Aug, Loss of appetite R63.0 ; Major depressiv e disorder, recurrent, moderate F33.1 and Functional diarrhea K59.[address] [address] Aug, Acute hemorrhoid K64.9 and Other osteoar thritis involving multiple joints M15.[address] [address] Aug, Abscess L02.[address] [address] July, Chronic diarrhea K52.[address] [address] July, [facility] [address] [place] [id number] July, Asymptomatic human immunodef iciency virus (HIV) infection status Z21 ; Nicotine dependence, cigarettes, uncomplicated F17.210 ; Chronic diarrhea K52.9 ; Abscess L02.91 ; GERD with esophagitis K21.0 ; Anxiety F41.9 and 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 [address] Jun, Pain in joint involving multiple sites M 25.[address] [address] Jun, [address] [address] Jun, Pain in joint involving multiple sites M 25.[address] [address] Jun, Pain in joint involving multiple sites M 25.50 ; GERD with esophagitis K21.0 and Intractable hiccups R06.[address] [address] May, Pain in joint involving multiple sites M 25.[address] [address] Apr, Pain in joint involving multiple sites M 25.50 and Anxiety F41.9 [facility] [address] 17 Apr, [address] [address] Apr, Chronic diarrhea K52.9 and Pain in joint involving multiple sites M25.50 [facility] [address] [id number] 10 Apr, 2016 Asymptomatic human immunodef iciency virus (HIV) infection status Z21 ; Mild intermittent asthma without complication J45.20 ; Iron deficiency anemia due to chronic blood loss D50.0 ; Screening, lipid Z13.220 ; Chronic diarrhea K52.9 ; Abscess L02.91 and Projectile vomiting with nausea R11.[address] [address] Feb, Acute hemorrhoid K64.[address] [address] Jan, [address] [address] 26 Jan, 2016 Nausea and vomiting, intractability of v omiting not specified, unspecified vomiting type R11.2 and Acute right ankle pain M25.[address] [address] Jan, [address] [address] 09 Jan, 2016 Asymptomatic human immunodeficiency viru s (HIV) infection status Z21 ; Iron deficiency anemia due to chronic blood loss D50.0 and Generalized abdominal pain R10.84 [facility] [address] [id number] Dec, Asymptomatic human immunodef iciency virus (HIV) infection status Z21 ; Mild intermittent asthma without complication J45.20 ; Influenza vaccine needed Z23 and Nicotine dependence, cigarettes, uncomplicated F17.210 [facility] [address] [facility] [address] [place] [id number] 2 Oct, [facility] [address] [facility] [address] [place] [id number] 2 Oct, [address] [place] [address] 08 May, 2012 [facility] [address] [place] [address] Feb, [facility] [address] [place] [address] Nov, [facility] [address] [place] [address] Aug, [facility] [address] [place] [address] Apr, [facility] [address] [facility] [address] [place] [id number] 1 8 Jan, 2011 IMMUNIZATIONS No Known Immunizations SOCIAL HISTORY Never Assessed REASON FOR VISIT script request PLAN OF CARE VITAL SIGNS MEDICATIONS Unknown Medications RESULTS No Results PROCEDURES No Known procedures INSTRUCTIONS MEDICATIONS ADMINISTERED No Known Medications MEDICAL (GENERAL) HISTORY Type Description Date Medical History HIV Medical History Colitis Medical History chronic pain Medical History depression Surgical History No know Surgical history
--- OUTSIDE RECORDS SUMMARY | 2019-07-04 12:02 | XMS REPORT ---
Author Author Sergio [facility] Address [address] [place], [place] [id number] Care Team Providers Care Executive Sales Assistant Name Role Phone Araseli Adams Unavailable PROBLEMS Type Condition ICD9-CM Code ZDT46-GO Code Onset Dates Condition S tatus SNOMED Code Problem Mild intermittent asthma without complication J45. 20 Active 760608382 Problem Iron deficiency anemia due to chronic blood loss D 50.0 Active 55455194 Problem Other osteoarthritis involving multiple joints M15 .8 Active 892401395 Problem Asymptomatic human immunodeficiency virus (HIV) infect ion status Z21 Active 32992989 Problem Other and unspecified noninfectious gastroenteritis an d colitis K52.9 Active 09525812 Problem Nicotine dependence, cigarettes, uncomplicated F17 .210 Active 48768473 Problem Other chronic pain G89.29 Active 8 0373751 Problem Generalized anxiety disorder F41.1 A ctive 24923025 Problem GERD with esophagitis K21.0 Active 090469484 Problem Functional diarrhea K59.1 Active 08387543 Problem Major depressive disorder, recurrent, moderate F33 .1 Active 041460888 Problem Loss of appetite R63.0 Active 798 35590 ALLERGIES No Information ENCOUNTERS Encounter Location Date Diagnosis [facility] [address] [place] [address] [place] [id number] Sep, [facility] [address] [place] [address] July, [facility] [address] [place] [address] July, [facility] [address] [place] [address] July, Other chronic pain G89.29 [facility] [address] [place] [address] July, [facility] [address] [place] [address] July, Other chronic pain G89.29 [facility] [address] [facility] [place] [address] Jun, [facility] [address] [facility] [place] [address] Jun, Other chronic pain G89.29 [facility] [address] [facility] [place] [address] Jun, [facility] [address] [facility] [place] [address] Jun, Other chronic pain G89.29 [facility] [address] [facility] [place] [address] May, Other chronic pain G89.29 [facility] [address] [facility] [place] [address] May, [facility] [address] [facility] [place] [address] May, [facility] [address] [facility] [place] [address] May, [facility] [address] [facility] [place] [address] May, [facility] [address] [facility] [place] [address] May, [facility] [address] [facility] [place] [address] Apr, [facility] [address] [facility] [place] [address] Apr, [facility] [address] [facility] [place] [address] Apr, [facility] [address] [facility] [place] [address] Apr, [facility] [address] [facility] [place] [address] Apr, [facility] [address] [facility] [place] [address] Apr, [facility] [address] [facility] [place] [address] Apr, [facility] [address] [facility] [place] [address] Apr, [facility] [address] [place] [address] Apr, [facility] [address] [facility] [place] [address] Apr, Other chronic pain G89.29 [facility] [address] [place] [address] Apr, [facility] [address] [facility] [place] [phone] Apr, Asymptomatic human immunodef iciency virus (HIV) infection status Z21 ; Other chronic pain G89.29 and Screening for cardiovascular condition Z13.6 [facility] [address] [facility] [place] [address] Apr, [facility] [address] [place] [address] Apr, [facility] [address] [place] [address] Apr, [facility] [address] [place] [address] Apr, Other chronic pain G89.29 [facility] [address] [place] [address] Mar, Loss of appetite R63.0 [facility] [address] [place] [address] Mar, [facility] [address] [place] [address] Mar, [facility] [address] [place] [address] Mar, [facility] [address] [place] [address] Mar, [facility] [address] [place] [address] Mar, Other chronic pain G89.29 [facility] [address] [place] [address] Mar, [facility] [address] [facility] [place] [address] Mar, [facility] [address] [facility] [place] [address] Mar, [facility] [address] [facility] [place] [address] Mar, Other chronic pain G89.29 [facility] [address] [place] [address], [place] [id number] Mar, Asymptomatic human immunodeficiency viru s (HIV) infection status Z21 [facility] [address] [facility] [place] [address] Mar, Other chronic pain G89.29 [facility] [address] [facility] [place] [address] Mar, [facility] [address] [facility] [place] [address] Mar, [facility] [address] [facility] [place] [address] Feb, Other chronic pain G89.29 [facility] [address] [place] [address] Feb, Other chronic pain G89.29 [facility] [address] [facility] [place] [id number] Feb, Other chronic pain G89.29 [facility] [address] [facility] [place] [phone] Feb, Asymptomatic human immunodef iciency virus (HIV) infection status Z21 and Other chronic pain G89.29 [facility] [address] [place] [address] Jan, Other chronic pain G89.29 [facility] [address] [place] [address] Jan, Other chronic pain G89.29 [facility] [address] [place] [address] Jan, Asymptomatic human immunodeficiency viru s (HIV) infection status Z21 [facility] [address] [place] [address] Jan, Other chronic pain G89.29 [facility] [address] [place] [address] Jan, [facility] [address] [place] [address] Dec, Other chronic pain G89.29 [facility] [address] [place] [address] Dec, Other chronic pain G89.29 [facility] [address] [id number] Nov, Asymptomatic human immunodef iciency virus (HIV) infection status Z21 ; Influenza vaccine needed Z23 and Other chronic pain G89.29 [facility] [address] [place] [address] 05 Nov, 2017 Other chronic pain G89.[address] [address] Oct, [facility] [address] [place] [address] Oct, Other chronic pain G89.29 [facility] [address] [place] [address] Oct, [address] [id number] Sep, Asymptomatic human immunodef iciency virus (HIV) infection status Z21 ; Other chronic pain G89.29 and Generalized anxiety disorder F41.[address] [address] Jun, [facility] [address] [place] [address] Jun, [facility] [address] [place] [address] Jun, [facility] [address] [id number] Jun, Asymptomatic human immunodef iciency virus (HIV) infection status Z21 ; Need for pneumococcal vaccine Z23 ; Major depressive disorder, recurrent, moderate F33.1 ; Loss of appetite R63.0 ; Other chronic pain G89.29 ; Other and unspecified noninfectious gastroenteritis and colitis K52.9 and Nausea R11.0 [facility] [address] [place] [address] Jun, [facility] [address] [place] [address] Jun, Acute right ankle pain M25.571 [facility] [address] [place] [address] May, [facility] [address] [place] [address] May, Acute right ankle pain M25.571 [facility] [address] [place] [address] Apr, [facility] [address] [place] [address] Apr, [facility] [address] [place] [address] Mar, Acute right ankle pain M25.571 [facility] [address] [place] [address], [place] [address] Mar, [facility] [address] [place] [address] Mar, [facility] [address] [place] [address] Mar, [facility] [address] [place] [address] Mar, [facility] [address] [place] [address] Mar, [facility] [address] [place] [address] Mar, Nausea and vomiting, intractability of v omiting not specified, unspecified vomiting type R11.2 [facility] [address] [place] [address] Mar, [facility] [address] [place] [address] Mar, Loss of appetite R63.0 [facility] [address] [place] [address] Mar, [facility] [address] [facility] [place] [address] Mar, [facility] [address] [facility] [place] [address] Mar, [facility] [address] [facility] [place] [address] Feb, Abscess L02.91 [facility] [address] [place] [address] Feb, Acute right ankle pain M25.571 [facility] [address] [place] [address] Feb, [facility] [address] [place] [address] Feb, [facility] [address] [place] [address] Feb, [facility] [address] [place] [address] Feb, Acute right ankle pain M25.571 [facility] [address] [place] [address] Feb, Abscess L02.91 [facility] [address] [place] [phone] Jan, Asymptomatic human immunodef iciency virus (HIV) infection status Z21 ; Influenza vaccine needed Z23 and Acute right ankle pain M25.571 [facility] [address] [place] [address] Jan, Abscess L02.91 [facility] [address] [place] [address] Nov, [facility] [address] [place] [address] Nov, Abscess L02.91 [facility] [address] [place] [address] Nov, Anxiety F41.9 [facility] [address] [place] [address] Nov, Acute right ankle pain M25.571 [facility] [address] [place] [address], [place] [address] 15 Nov, 2016 [facility] [address] [facility] [place] [address] 14 Nov, 2016 [facility] [address] [facility] [place] [address] 14 Nov, 2016 Hiccups R06.6 [facility] [address] [facility] [place] [address] 13 Nov, 2016 [facility] [address] [facility] [place] [address] 08 Nov, 2016 [facility] [address] [facility] [place] [address] 08 Nov, 2016 [facility] [address] [facility] [place] [address] Nov, [facility] [address] [facility] [place] [address] Nov, [facility] [address] [facility] [place] [address] Nov, [facility] [address] [facility] [place] [address] Oct, [facility] [address] [facility] [place] [address] Oct, [facility] [address] [facility] [place] [address] Oct, [facility] [address] [facility] [place] [address] Oct, Abscess L02.91 [facility] [address] [facility] [place] [address] Oct, [facility] [address] [facility] [place] [address] Oct, [facility] [address] [facility] [place] [address] Oct, [facility] [address] [facility] [place] [address] Oct, Abscess L02.91 and Acute right ankle ta n M25.571 [facility] [address] [facility] [place] [address] Oct, [facility] [address] [place] [address] Oct, [facility] [address] [place] [address] Oct, Abscess L02.91 [facility] [address] [place] [address] Oct, [facility] [address] [place] [address] Oct, [facility] [address] [place] [phone] Oct, Asymptomatic human immunodef iciency virus (HIV) infection status Z21 ; 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 ; Nicotine dependence, cigarettes, uncomplicated F17.210 ; Iron deficiency anemia due to chronic blood loss D50.0 ; GERD with esophagitis K21.0 ; Major depressive disorder, recurrent, moderate F33.1 and Generalized anxiety disorder F41.1 [facility] [address] [place] [address] Sep, Major depressive disorder, recurrent, mo derate F33.1 [facility] [address] [place] [address] Sep, [facility] [address] [place] [address] Sep, [facility] [address] [place] [address] Sep, [facility] [address] [place] [address] Sep, [facility] [address] [place] [address] Sep, [facility] [address] [place] [address] Aug, [facility] [address] [place] [address] Aug, [facility] [address] [place] [address] Aug, [facility] [address] [place] [address] Aug, Loss of appetite R63.0 ; Major depressiv e disorder, recurrent, moderate F33.1 and Functional diarrhea K59.[address] [address] Aug, Acute hemorrhoid K64.9 and Other osteoar thritis involving multiple joints M15.[address] [address] Aug, Abscess L02.[address] [address] July, Chronic diarrhea K52.[address] [address] July, [facility] [address] [place] [phone] July, Asymptomatic human immunodef iciency virus (HIV) infection status Z21 ; Nicotine dependence, cigarettes, uncomplicated F17.210 ; Chronic diarrhea K52.9 ; Abscess L02.91 ; GERD with esophagitis K21.0 ; Anxiety F41.9 and 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 [address] Jun, Pain in joint involving multiple sites M 25.[address] [address] Jun, [address] [address] Jun, Pain in joint involving multiple sites M 25.[address] [address] Jun, Pain in joint involving multiple sites M 25.50 ; GERD with esophagitis K21.0 and Intractable hiccups R06.[address] [address] May, Pain in joint involving multiple sites M 25.[address] [address] Apr, Pain in joint involving multiple sites M 25.50 and Anxiety F41.[address] [facility] [address] 17 Apr, [address] [address] Apr, Chronic diarrhea K52.9 and Pain in joint involving multiple sites M25.50 [facility] [address] [id number] 10 Apr, 2016 Asymptomatic human immunodef iciency virus (HIV) infection status Z21 ; Mild intermittent asthma without complication J45.20 ; Iron deficiency anemia due to chronic blood loss D50.0 ; Screening, lipid Z13.220 ; Chronic diarrhea K52.9 ; Abscess L02.91 and Projectile vomiting with nausea R11.[address] [address] Feb, Acute hemorrhoid K64.[address] [address] Jan, [address] [address] 26 Jan, 2016 Nausea and vomiting, intractability of v omiting not specified, unspecified vomiting type R11.2 and Acute right ankle pain M25.[address] [address] Jan, [address] [address] 09 Jan, 2016 Asymptomatic human immunodeficiency viru s (HIV) infection status Z21 ; Iron deficiency anemia due to chronic blood loss D50.0 and Generalized abdominal pain R10.84 [facility] [address] [id number] Dec, Asymptomatic human immunodef iciency virus (HIV) infection status Z21 ; Mild intermittent asthma without complication J45.20 ; Influenza vaccine needed Z23 and Nicotine dependence, cigarettes, uncomplicated F17.210 [facility] [address] [facility] [address] [place] [id number] 2 Oct, [facility] [address] [facility] [address] [place], [place] [id number] 2 Oct, [address] [place] [address] 08 May, 2012 [facility] [address] [place] [address] Feb, [facility] [address] [place] [address] Nov, [facility] [address] [place] [address] Aug, [facility] [address] [place] [address] Apr, [facility] [address] [facility] [address] [place], [place] [id number] 1 8 Jan, 2011 IMMUNIZATIONS No Known [...]
--- OUTSIDE RECORDS SUMMARY | 2019-07-04 12:02 | XMS REPORT ---
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 20 Active 305931984 Problem Iron deficiency anemia due to chronic blood loss D 50.0 Active 37730565 Problem Other osteoarthritis involving multiple joints M15 .8 Active 797122537 Problem Asymptomatic human immunodeficiency virus (HIV) infect ion status Z21 Active 38575336 Problem Other and unspecified noninfectious gastroenteritis an d colitis K52.9 Active 96730939 Problem Nicotine dependence, cigarettes, uncomplicated F17 .210 Active 83137198 Problem Other chronic pain G89.29 Active 8 6311225 Problem Generalized anxiety disorder F41.1 A ctive 74681270 Problem GERD with esophagitis K21.0 Active 253475210 Problem Functional diarrhea K59.1 Active 46397257 Problem Major depressive disorder, recurrent, moderate F33 .1 Active 112999264 Problem Loss of appetite R63.0 Active 798 23210 ALLERGIES No Information ENCOUNTERS Encounter Location Date Diagnosis [facility] [address] [place] [address] [place] [id number] Sep, [facility] [address] [place] [address] July, [facility] [address] [place] [address] July, Other chronic pain G89.29 [facility] [address] [place] [address] Jun, [facility] [address] [place] [address] Jun, Other chronic pain G89.29 [facility] [address] [place] [facility] [place] [address] Jun, [facility] [address] [place] [facility] [place] [address] Jun, Other chronic pain G89.29 [facility] [address] [place] [facility] [place] [address] May, Other chronic pain G89.29 [facility] [address] [place] [facility] [place] [address] May, [facility] [address] [place] [facility] [place] [address] May, [facility] [address] [place] [facility] [place] [address] May, [facility] [address] [place] [facility] [place] [address] May, [facility] [address] [place] [facility] [place] [address] May, [facility] [address] [place] [facility] [place] [address] Apr, [facility] [address] [place] [facility] [place] [address] Apr, [facility] [address] [place] [facility] [place] [address] Apr, [facility] [address] [place] [facility] [place] [address] Apr, [facility] [address] [place] [facility] [place] [address] Apr, [facility] [address] [place] [facility] [place] [address] Apr, [facility] [address] [place] [facility] [place] [address] Apr, [facility] [address] [place] [facility] [place] [address] Apr, [facility] [address] [place] [facility] [place] [address] Apr, [facility] [address] [place] [facility] [place] [address] Apr, Other chronic pain G89.29 [facility] [address] [place] [place] [address] Apr, [facility] [address] [facility] [place] [id number] 15 Apr, 2018 Asymptomatic human immunodef iciency virus (HIV) infection status Z21 ; Other chronic pain G89.29 and Screening for cardiovascular condition Z13.6 [facility] [address] [place] [facility] [place] [address] 14 Apr, 2018 [facility] [address] [place] [address] Apr, [facility] [address] [place] [facility] [place] [address] Apr, [facility] [address] [place] [address] Apr, Other chronic pain G89.29 [facility] [address] [place] [address] Mar, Loss of appetite R63.0 [facility] [address] [place] [address] Mar, [facility] [address] [place] [address] Mar, [facility] [address] [place] [address] Mar, [facility] [address] [place] [address] Mar, [facility] [address] [place] [address] Mar, Other chronic pain G89.29 [facility] [address] [place] [address] Mar, [facility] [address] [place] [address] Mar, [facility] [address] [place] [address] Mar, [facility] [address] [place] [address] Mar, Other chronic pain G89.29 [facility] [address] [facility] [place] [id number] Mar, Asymptomatic human immunodeficiency viru s (HIV) infection status Z21 [facility] [address] [place] [address] Mar, Other chronic pain G89.29 [facility] [address] [facility] [place] [address] Mar, [facility] [address] [place] [address] Mar, [facility] [address] [place] [address] Feb, Other chronic pain G89.29 [facility] [address] [place] [address] Feb, Other chronic pain G89.29 [facility] [address] [facility] [place] [id number] Feb, Other chronic pain G89.29 [facility] [address] [facility] [place] [id number] Feb, Asymptomatic human immunodef iciency virus (HIV) infection status Z21 and Other chronic pain G89.29 [facility] [address] [place] [address] Jan, Other chronic pain G89.29 [facility] [address] [place] [address] Jan, Other chronic pain G89.29 [facility] [address] [place] [address] Jan, Asymptomatic human immunodeficiency viru s (HIV) infection status Z21 [facility] [address] [place] [address] Jan, Other chronic pain G89.29 [facility] [address] [place] [address] Jan, [facility] [address] [place] [address] Dec, Other chronic pain G89.29 [facility] [address] [place] [address] Dec, Other chronic pain G89.29 [facility] [address] [place] [id number] Nov, Asymptomatic human immunodef iciency virus (HIV) infection status Z21 ; Influenza vaccine needed Z23 and Other chronic pain G89.29 [facility] [address] [place] [address] 05 Nov, 2017 Other chronic pain G89.29 [facility] [address] [place] [address] Oct, [facility] [address] [place] [address] Oct, Other chronic pain G89.[address] [address] 08 Oct, [address] [id number] Sep, Asymptomatic human immunodef iciency virus (HIV) infection status Z21 ; Other chronic pain G89.29 and Generalized anxiety disorder F41.1 [facility] [address] [place] [address] Jun, [address] [address] Jun, [address] [address] Jun, [address] [id number] Jun, Asymptomatic human immunodef iciency virus (HIV) infection status Z21 ; Need for pneumococcal vaccine Z23 ; Major depressive disorder, recurrent, moderate F33.1 ; Loss of appetite R63.0 ; Other chronic pain G89.29 ; Other and unspecified noninfectious gastroenteritis and colitis K52.9 and Nausea R11.0 [facility] [address] [place] [address] Jun, [address] [address] Jun, Acute right ankle pain M25.[address] [address] May, [facility] [address] [place] [facility] [place] [address] May, Acute right ankle pain M25.571 [facility] [address] [place] [place] [address] Apr, [facility] [address] [place] [address] Apr, [facility] [address] [place] [address] Mar, Acute right ankle pain M25.571 [facility] [address] [place] [address] Mar, [facility] [address] [place] [address] Mar, [facility] [address] [place] [address] Mar, [facility] [address] [place] [address] Mar, [facility] [address] [place] [address] Mar, [facility] [address] [place] [address] Mar, Nausea and vomiting, intractability of v omiting not specified, unspecified vomiting type R11.2 [facility] [address] [place] [address] Mar, [facility] [address] [place] [address] Mar, Loss of appetite R63.0 [facility] [address] [place] [address] Mar, [facility] [address] [place] [address] Mar, [facility] [address] [place] [address] Mar, [facility] [address] [place] [address] Feb, Abscess L02.91 [facility] [address] [place] [address] Feb, Acute right ankle pain M25.571 [facility] [address] [place] [address] Feb, [facility] [address] [place] [address] Feb, [facility] [address] [place] [address] Feb, [facility] [address] [place] [address] Feb, Acute right ankle pain M25.571 [facility] [address] [place] [address] Feb, Abscess L02.91 [facility] [address] [facility] [place] [id number] Jan, Asymptomatic human immunodef iciency virus (HIV) infection status Z21 ; Influenza vaccine needed Z23 and Acute right ankle pain M25.571 [facility] [address] [place] [address] Jan, Abscess L02.91 [facility] [address] [place] [address] Nov, [facility] [address] [place] [address] Nov, Abscess L02.91 [facility] [address] [place] [address] Nov, Anxiety F41.9 [facility] [address] [place] [address] Nov, Acute right ankle pain M25.571 [facility] [address] [place] [address] Nov, [facility] [address] [place] [address] Nov, [facility] [address] [place] [address] Nov, Hiccups R06.6 [facility] [address] [place] [address] 13 Nov, 2016 [facility] [address] [place] [facility] [place] [address] Nov, [facility] [address] [place] [facility] [place] [address] Nov, [facility] [address] [place] [facility] [place] [address] Nov, [facility] [address] [place] [place] [address] Nov, [facility] [address] [place] [facility] [place] [address] Nov, [facility] [address] [place] [place] [address] Oct, [facility] [address] [place] [facility] [place] [address] Oct, [facility] [address] [place] [place] [address] Oct, [facility] [address] [place] [place] [address] Oct, Abscess L02.91 [facility] [address] [place] [place] [address] Oct, [facility] [address] [place] [place] [address] Oct, [facility] [address] [place] [place] [address] Oct, [facility] [address] [place] [place] [address] Oct, Abscess L02.91 and Acute right ankle ta n M25.571 [facility] [address] [place] [place] [address] Oct, [facility] [address] [place] [place] [address] Oct, [facility] [address] [place] [place] [address] Oct, Abscess L02.91 [facility] [address] [place] [place] [address] Oct, [facility] [address] [place] [address] Oct, 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 ; Nicotine dependence, cigarettes, uncomplicated F17.210 ; Iron deficiency anemia due to chronic blood loss D50.0 ; GERD with esophagitis K21.0 ; Major depressive disorder, recurrent, moderate F33.1 and Generalized anxiety disorder F41.1 [facility] [address] [place] [address] Sep, Major depressive disorder, recurrent, mo derate F33.1 [facility] [address] [place] [address] Sep, [facility] [address] [place] [address] Sep, [facility] [address] [place] [address] Sep, [facility] [address] [place] [address] Sep, [facility] [address] [place] [address] Sep, [facility] [address] [place] [address] Aug, [facility] [address] [place] [address] Aug, [facility] [address] [place] [address] Aug, [facility] [address] [place] [address] Aug, Loss of appetite R63.0 ; Major depressiv e disorder, recurrent, moderate F33.1 and Functional diarrhea K59.1 [facility] [address] [place] [address] 05 Aug, 2016 Acute hemorrhoid K64.9 and Other osteoar thritis involving multiple joints M15.8 [facility] [address] [place] [address] Aug, Abscess L02.[address] [address] July, Chronic diarrhea K52.[address] [address] July, [facility] [address] [id number] July, Asymptomatic human immunodef iciency virus (HIV) infection status Z21 ; Nicotine dependence, cigarettes, uncomplicated F17.210 ; Chronic diarrhea K52.9 ; Abscess L02.91 ; GERD with esophagitis K21.0 ; Anxiety F41.9 and 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 [address] Jun, Pain in joint involving multiple sites M 25.[address] [address] Jun, [address] [address] Jun, Pain in joint involving multiple sites M 25.[address] [address] Jun, Pain in joint involving multiple sites M 25.50 ; GERD with esophagitis K21.0 and Intractable hiccups R06.[address] [address] May, Pain in joint involving multiple sites M 25.[address] [address] Apr, Pain in joint involving multiple sites M 25.50 and Anxiety F41.[address] [address] Apr, [address] [address] Apr, Chronic diarrhea K52.9 and Pain in joint involving multiple sites M25.50 [facility] [address] [id number] Apr, Asymptomatic human immunodef iciency virus (HIV) infection status Z21 ; Mild intermittent asthma without complication J45.20 ; Iron deficiency anemia due to chronic blood loss D50.0 ; Screening, lipid Z13.220 ; Chronic diarrhea K52.9 ; Abscess L02.91 and Projectile vomiting with nausea R11.[address] [address] Feb, Acute hemorrhoid K64.[address] [address] Jan, [address] [address] Jan, Nausea and vomiting, intractability of v omiting not specified, unspecified vomiting type R11.2 and Acute right ankle pain M25.[address] [address] Jan, [address] [address] Jan, Asymptomatic human immunodeficiency viru s (HIV) infection status Z21 ; Iron deficiency anemia due to chronic blood loss D50.0 and Generalized abdominal pain R10.84 [facility] [address] [place] [phone] Dec, Asymptomatic human immunodef iciency virus (HIV) infection status Z21 ; Mild intermittent asthma without complication J45.20 ; Influenza vaccine needed Z23 and Nicotine dependence, cigarettes, uncomplicated F17.210 [facility] [address] [address] [place] [id number] 2 Oct, [facility] [address] [facility] [address] [place] [id number] 8 Oct, 2013 [facility] [address] [place] [address] 08 May, 2012 [facility] [address] [place] [address] 14 Feb, 2012 [facility] [address] [place] [address] 14 Nov, [address] [address] Aug, [facility] [address] [place] [address] 17 Apr, 2011 [facility] [address] [facility] [address] [place], [place] [id number] 1 Jan, IMMUNIZATIONS No Known Immunizations SOCIAL [...]
--- OUTSIDE RECORDS SUMMARY | 2019-07-04 12:02 | XMS REPORT ---
Author Author Sergio Adams [facility] Address [address] [place], [place] [id number] Care Team Providers Care Conference Concierge Name Role Phone Araseli Adams Unavailable PROBLEMS Type Condition ICD9-CM Code RNU31-JE Code Onset Dates Condition S tatus SNOMED Code Problem Mild intermittent asthma without complication J45. 20 Active 886996906 Problem Iron deficiency anemia due to chronic blood loss D 50.0 Active 90407618 Problem Other osteoarthritis involving multiple joints M15 .8 Active 763381452 Problem Asymptomatic human immunodeficiency virus (HIV) infect ion status Z21 Active 44615775 Problem Other and unspecified noninfectious gastroenteritis an d colitis K52.9 Active 70126513 Problem Nicotine dependence, cigarettes, uncomplicated F17 .210 Active 40485403 Problem Other chronic pain G89.29 Active 8 9622125 Problem Generalized anxiety disorder F41.1 A ctive 81279528 Problem GERD with esophagitis K21.0 Active 842380664 Problem Functional diarrhea K59.1 Active 44040457 Problem Major depressive disorder, recurrent, moderate F33 .1 Active 165651735 Problem Loss of appetite R63.0 Active 798 81203 ALLERGIES No Information ENCOUNTERS Encounter Location Date Diagnosis [facility] [address] [place] [address] [place] [id number] Sep, [facility] [address] [place] [address] July, Other chronic pain G89.29 [facility] [address] [place] [address] July, [facility] [address] [place] [address] July, [facility] [address] [place] [address] July, Other chronic pain G89.29 [facility] [address] [place] [facility] [address] July, [facility] [address] [place] [facility] [place] [address] July, Other chronic pain G89.29 [facility] [address] [place] [facility] [address] Jun, [facility] [address] [place] [facility] [place] [address] Jun, Other chronic pain G89.29 [facility] [address] [place] [facility] [place] [address] Jun, [facility] [address] [place] [facility] [place] [address] Jun, Other chronic pain G89.29 [facility] [address] [place] [facility] [place] [address] May, Other chronic pain G89.29 [facility] [address] [place] [facility] [place] [address] May, [facility] [address] [place] [facility] [place] [address] May, [facility] [address] [place] [facility] [address] May, [facility] [address] [place] [facility] [place] [address] May, [facility] [address] [place] [facility] [address] May, [facility] [address] [place] [facility] [place] [address] Apr, [facility] [address] [place] [facility] [place] [address] Apr, [facility] [address] [place] [facility] [address] Apr, [facility] [address] [facility] [address] Apr, [facility] [address] [place] [facility] [address] Apr, [facility] [address] [place] [facility] [address] Apr, [facility] [address] [place] [address] Apr, [facility] [address] [place] [facility] [address] Apr, [facility] [address] [place] [address] Apr, [facility] [address] [place] [address] Apr, Other chronic pain G89.29 [facility] [address] [place] [address] Apr, [facility] [address] [id number] Apr, Asymptomatic human immunodef iciency virus (HIV) infection status Z21 ; Other chronic pain G89.29 and Screening for cardiovascular condition Z13.6 [facility] [address] [place] [address] Apr, [facility] [address] [place] [address] Apr, [facility] [address] [place] [address] Apr, [facility] [address] [place] [address] Apr, Other chronic pain G89.29 [facility] [address] [place] [address] Mar, Loss of appetite R63.0 [facility] [address] [place] [address] Mar, [facility] [address] [place] [address] Mar, [facility] [address] [place] [address] Mar, [facility] [address] [place] [address] Mar, [facility] [address] [place] [address] Mar, Other chronic pain G89.29 [facility] [address] [place] [address] Mar, [facility] [address] [place] [address] Mar, [facility] [address] [place] [address] Mar, [facility] [address] [place] [address] Mar, Other chronic pain G89.29 [facility] [address] [facility] [place] [id number] Mar, Asymptomatic human immunodeficiency viru s (HIV) infection status Z21 [facility] [address] [place] [address] Mar, Other chronic pain G89.29 [facility] [address] [place] [address] Mar, [facility] [address] [place] [address] Mar, [facility] [address] [place] [address] Feb, Other chronic pain G89.29 [facility] [address] [place] [address] Feb, Other chronic pain G89.29 [facility] [address] [place] [address] S [id number] Feb, Other chronic pain G89.29 [facility] [address] [facility] [place] [id number] Feb, Asymptomatic human immunodef iciency virus (HIV) infection status Z21 and Other chronic pain G89.29 [facility] [address] [place] [address] Jan, Other chronic pain G89.29 [facility] [address] [place] [address] Jan, Other chronic pain G89.29 [facility] [address] [place] [address] Jan, Asymptomatic human immunodeficiency viru s (HIV) infection status Z21 [facility] [address] [place] [facility] [address] Jan, Other chronic pain G89.29 [facility] [address] [place] [facility] [address] Jan, [facility] [address] [place] [facility] [address] Dec, Other chronic pain G89.29 [facility] [address] [place] [facility] [address] Dec, Other chronic pain G89.29 [facility] [address] [place] [id number] Nov, Asymptomatic human immunodef iciency virus (HIV) infection status Z21 ; Influenza vaccine needed Z23 and Other chronic pain G89.29 [facility] [address] [place] [address] Nov, Other chronic pain G89.29 [facility] [address] [place] [facility] [address] Oct, [facility] [address] [place] [address] Oct, Other chronic pain G89.29 [facility] [address] [place] [facility] [address] Oct, [facility] [address] [id number] Sep, Asymptomatic human immunodef iciency virus (HIV) infection status Z21 ; Other chronic pain G89.29 and Generalized anxiety disorder F41.1 [facility] [address] [place] [facility] [address] Jun, [facility] [address] [place] [address] Jun, [facility] [address] [place] [facility] [address] Jun, [facility] [address] [place] [id number] Jun, Asymptomatic human immunodef iciency virus (HIV) infection status Z21 ; Need for pneumococcal vaccine Z23 ; Major depressive disorder, recurrent, moderate F33.1 ; Loss of appetite R63.0 ; Other chronic pain G89.29 ; Other and unspecified noninfectious gastroenteritis and colitis K52.9 and Nausea R11.0 [facility] [address] [place] [address] Jun, [facility] [address] [place] [address] Jun, Acute right ankle pain M25.571 [facility] [address] [place] [address], [place] [address] May, [facility] [address] [place] [address], [place] [address] May, Acute right ankle pain M25.571 [facility] [address] [place] [address], [place] [address] Apr, [facility] [address] [place] [address] Apr, [facility] [address] [place] [address] Mar, Acute right ankle pain M25.571 [facility] [address] [place] [address] Mar, [facility] [address] [place] [address] Mar, [facility] [address] [place] [address] Mar, [facility] [address] [place] [address] Mar, [facility] [address] [place] [address] Mar, [facility] [address] [place] [address] Mar, Nausea and vomiting, intractability of v omiting not specified, unspecified vomiting type R11.2 [facility] [address] [place] [address] Mar, [facility] [address] [place] [address] Mar, Loss of appetite R63.0 [facility] [address] [place] [address] Mar, [facility] [address] [place] [address] Mar, [facility] [address] [place] [address] Mar, [facility] [address] [place] [address] Feb, Abscess L02.91 [facility] [address] [place] [address] Feb, Acute right ankle pain M25.571 [facility] [address] [place] [address], [place] [address] Feb, [facility] [address] [place] [address] Feb, [facility] [address] [place] [address] Feb, [facility] [address] [place] [address] Feb, Acute right ankle pain M25.571 [facility] [address] [place] [address] Feb, Abscess L02.91 [facility] [address] [id number] Jan, Asymptomatic human immunodef iciency virus (HIV) infection status Z21 ; Influenza vaccine needed Z23 and Acute right ankle pain M25.571 [facility] [address] [place] [address] Jan, Abscess L02.91 [facility] [address] [place] [address] Nov, [facility] [address] [place] [address] Nov, Abscess L02.91 [facility] [address] [place] [address] Nov, Anxiety F41.9 [facility] [address] [place] [address] Nov, Acute right ankle pain M25.571 [facility] [address] [place] [facility] [address] 15 Nov, 2016 [facility] [address] [place] [facility] [address] 14 Nov, 2016 [facility] [address] [place] [facility] [address] 14 Nov, 2016 Hiccups R06.6 [facility] [address] [place] [facility] [place] [address] 13 Nov, 2016 [facility] [address] [place] [facility] [address] 08 Nov, 2016 [facility] [address] [place] [facility] [place] [address] 08 Nov, 2016 [facility] [address] [place] [facility] [address] Nov, [facility] [address] [place] [facility] [address] Nov, [facility] [address] [place] [facility] [address] Nov, [facility] [address] [place] [facility] [address] Oct, [facility] [address] [place] [facility] [address] Oct, [facility] [address] [place] [facility] [address] Oct, [facility] [address] [place] [facility] [address] Oct, Abscess L02.91 [facility] [address] [place] [facility] [place] [address] Oct, [facility] [address] [place] [facility] [place] [address] Oct, [facility] [address] [place] [facility] [address] Oct, [facility] [address] [place] [facility] [address] Oct, Abscess L02.91 and Acute right ankle ta n M25.571 [facility] [address] [place] [facility] [place] [address] Oct, [facility] [address] [place] [facility] [address] Oct, [facility] [address] [place] [facility] [address] Oct, Abscess L02.91 [facility] [address] [place] [facility] [place] [address] Oct, [facility] [address] [place] [facility] [address] Oct, [facility] [address] [place] [id number] Oct, Asymptomatic human immunodef iciency virus (HIV) infection status Z21 ; [facility] current use of opiate analgesic Z79.891 ; Nicotine dependence, cigarettes, uncomplicated F17.210 ; Iron deficiency anemia due to chronic blood loss D50.0 ; GERD with esophagitis K21.0 ; Major depressive disorder, recurrent, moderate F33.1 and Generalized anxiety disorder F41.1 [facility] [address] [place] [facility] [place] [address] Sep, Major depressive disorder, recurrent, mo derate F33.1 [facility] [address] [place] [facility] [address] Sep, [facility] [address] [place] [address] Sep, [facility] [address] [place] [facility] [address] Sep, [facility] [address] [place] [address] Sep, [facility] [address] [place] [facility] [address] Sep, [facility] [address] [place] [facility] [address] Aug, [facility] [address] [place] [facility] [address] Aug, [facility] [address] [place] [address] Aug, [facility] [address] [place] [address] Aug, Loss of appetite R63.0 ; Major depressiv e disorder, recurrent, moderate F33.1 and Functional diarrhea K59.[address] [address] Aug, Acute hemorrhoid K64.9 and Other osteoar thritis involving multiple joints M15.8 [facility] [address] [place] [address] Aug, Abscess L02.[address] [address] July, Chronic diarrhea K52.[address] [address] July, [facility] [address] [place] [id number] July, Asymptomatic human immunodef iciency virus (HIV) infection status Z21 ; Nicotine dependence, cigarettes, uncomplicated F17.210 ; Chronic diarrhea K52.9 ; Abscess L02.91 ; GERD with esophagitis K21.0 ; Anxiety F41.9 and 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 [address] Jun, Pain in joint involving multiple sites M 25.[address] [address] Jun, [address] [address] Jun, Pain in joint involving multiple sites M 25.[address] [address] Jun, Pain in joint involving multiple sites M 25.50 ; GERD with esophagitis K21.0 and Intractable hiccups R06.[address] [address] May, Pain in joint involving multiple sites M 25.[address] [address] Apr, Pain in joint involving multiple sites M 25.50 and Anxiety F41.[address] [address] 17 Apr, [address] [address] 10 Apr, 2016 Chronic diarrhea K52.9 and Pain in joint involving multiple sites M25.50 [facility] [address] [place] [phone] 10 Apr, 2016 Asymptomatic human immunodef iciency virus (HIV) infection status Z21 ; Mild intermittent asthma without complication J45.20 ; Iron deficiency anemia due to chronic blood loss D50.0 ; Screening, lipid Z13.220 ; Chronic diarrhea K52.9 ; Abscess L02.91 and Projectile vomiting with nausea R11.[address] [address] Feb, Acute hemorrhoid K64.[address] [address] Jan, [address] [address] Jan, Nausea and vomiting, intractability of v omiting not specified, unspecified vomiting type R11.2 and Acute right ankle pain M25.[address] [address] Jan, [address] [address] 09 Jan, 2016 Asymptomatic human immunodeficiency viru s (HIV) infection status Z21 ; Iron deficiency anemia due to chronic blood loss D50.0 and Generalized abdominal pain R10.84 [facility] [address] [place] [phone] Dec, Asymptomatic human immunodef iciency virus (HIV) infection status Z21 ; Mild intermittent asthma without complication J45.20 ; Influenza vaccine needed Z23 and Nicotine dependence, cigarettes, uncomplicated F17.210 [facility] [address] [facility] [address] [place] [id number] Oct, [facility] [address] [facility] [address] [place] [id number] 8 Oct, 2013 [facility] [address] [place] [address] May, [facility] [address] [place] [address] Feb, [facility] [address] [place] [address] Nov, [facility] [address] [place] [address] Aug, [facility] [address] [place] [address] Apr, [facility] [address] [facility] [address] [place], [place] [id number] 1 8 Jan, 2011 IMMUNIZATIONS No Known Immunizations SOCIAL HISTORY Never Assessed REASON FOR VISIT med request PLAN OF CARE VITAL SIGNS MEDICATIONS [...]
--- OUTSIDE RECORDS SUMMARY | 2019-07-04 12:02 | XMS REPORT ---
Author Author Sergio Adams [facility] Address [address] [place], [place] [id number] Care Team Providers Care Spare Hand Name Role Phone Araseli Adams Unavailable PROBLEMS Type Condition ICD9-CM Code [id number] Code Onset Dates Condition S tatus SNOMED Code Problem Mild intermittent asthma without complication J45. 20 Active 076150860 Problem Iron deficiency anemia due to chronic blood loss D 50.0 Active 21561529 Problem Other osteoarthritis involving multiple joints M15 .8 Active 315450074 Problem Asymptomatic human immunodeficiency virus (HIV) infect ion status Z21 Active 56634942 Problem Other and unspecified noninfectious gastroenteritis an d colitis K52.9 Active 74000328 Problem Nicotine dependence, cigarettes, uncomplicated F17 .210 Active 87915996 Problem Other chronic pain G89.29 Active 8 6438949 Problem Generalized anxiety disorder F41.1 A ctive 27447032 Problem GERD with esophagitis K21.0 Active 366421928 Problem Functional diarrhea K59.1 Active 19622758 Problem Major depressive disorder, recurrent, moderate F33 .1 Active 330345651 Problem Loss of appetite R63.0 Active 798 61267 ALLERGIES No Information ENCOUNTERS Encounter Location Date Diagnosis [facility] [address] [place] [address] [place], [place] [id number] Sep, [facility] [address] [place] [address] July, Other chronic pain G89.29 [facility] [address] [place] [address] Jun, [facility] [address] [place] [address] Jun, Other chronic pain G89.29 [facility] [address] [place] [address] Jun, [facility] [address] [place] [facility] [place] [address] Jun, Other chronic pain G89.29 [facility] [address] [place] [facility] [place] [address] May, Other chronic pain G89.29 [facility] [address] [place] [facility] [place] [address] May, [facility] [address] [place] [facility] [place] [address] May, [facility] [address] [place] [facility] [place] [address] May, [facility] [address] [place] [facility] [place] [address] May, [facility] [address] [place] [facility] [place] [address] May, [facility] [address] [place] [facility] [place] [address] Apr, [facility] [address] [place] [facility] [place] [address] Apr, [facility] [address] [place] [facility] [place] [address] Apr, [facility] [address] [place] [facility] [place] [address] Apr, [facility] [address] [place] [facility] [place] [address] Apr, [facility] [address] [place] [facility] [place] [address] Apr, [facility] [address] [place] [facility] [place] [address] Apr, [facility] [address] [place] [facility] [place] [address] Apr, [facility] [address] [place] [facility] [place] [address] Apr, [facility] [address] [place] [facility] [place] [address] Apr, Other chronic pain G89.29 [facility] [address] [place] [facility] [place] [address] Apr, [facility] [address] [facility] [address] [place] [id number] 15 Apr, 2018 Asymptomatic human immunodef iciency virus (HIV) infection status Z21 ; Other chronic pain G89.29 and Screening for cardiovascular condition Z13.6 [facility] [address] [place] [address] 14 Apr, 2018 [facility] [address] [place] [address] Apr, [facility] [address] [facility] [address] Apr, [facility] [address] [place] [address] Apr, Other chronic pain G89.29 [facility] [address] [place] [address] Mar, Loss of appetite R63.0 [facility] [address] [place] [address] Mar, [facility] [address] [place] [address] Mar, [facility] [address] [place] [address] Mar, [facility] [address] [place] [address] Mar, [facility] [address] [place] [address] Mar, Other chronic pain G89.29 [facility] [address] [place] [address] Mar, [facility] [address] [place] [address] Mar, [facility] [address] [place] [address] Mar, [facility] [address] [place] [address] Mar, Other chronic pain G89.29 [facility] [address] [place], [place] [id number] Mar, Asymptomatic human immunodeficiency viru s (HIV) infection status Z21 [facility] [address] [place] [address] Mar, Other chronic pain G89.29 [facility] [address] [place] [address] Mar, [facility] [address] [place] [address] Mar, [facility] [address] [place] [address] Feb, Other chronic pain G89.29 [facility] [address] [place] [address] Feb, Other chronic pain G89.29 [facility] [address] [facility] [place] [id number] Feb, Other chronic pain G89.29 [facility] [address] [place] [id number] Feb, Asymptomatic human immunodef iciency virus (HIV) infection status Z21 and Other chronic pain G89.29 [facility] [address] [place] [address] Jan, Other chronic pain G89.29 [facility] [address] [place] [address] Jan, Other chronic pain G89.29 [facility] [address] [place] [address] Jan, Asymptomatic human immunodeficiency viru s (HIV) infection status Z21 [facility] [address] [place] [address] Jan, Other chronic pain G89.29 [facility] [address] [place] [address] Jan, [facility] [address] [place] [address] Dec, Other chronic pain G89.29 [facility] [address] [place] [address] Dec, Other chronic pain G89.29 [facility] [address] [place] [phone] Nov, Asymptomatic human immunodef iciency virus (HIV) infection status Z21 ; Influenza vaccine needed Z23 and Other chronic pain G89.29 [facility] [address] [place] [address] 05 Nov, 2017 Other chronic pain G89.29 [facility] [address] [place] [address] Oct, [facility] [address] [place] [address] Oct, Other chronic pain G89.29 [facility] [address] [place] [address] Oct, [address] [id number] Sep, Asymptomatic human immunodef iciency virus (HIV) infection status Z21 ; Other chronic pain G89.29 and Generalized anxiety disorder F41.1 [facility] [address] [place] [address] Jun, [facility] [address] [place] [address] Jun, [facility] [address] [place] [address] Jun, [address] [id number] Jun, Asymptomatic human immunodef iciency virus (HIV) infection status Z21 ; Need for pneumococcal vaccine Z23 ; Major depressive disorder, recurrent, moderate F33.1 ; Loss of appetite R63.0 ; Other chronic pain G89.29 ; Other and unspecified noninfectious gastroenteritis and colitis K52.9 and Nausea R11.0 [facility] [address] [place] [address] Jun, [facility] [address] [place] [address] Jun, Acute right ankle pain M25.[address] [address] May, [facility] [address] [place] [address] May, Acute right ankle pain M25.571 [facility] [address] [place] [facility] [place] [address] Apr, [facility] [address] [place] [facility] [place] [address] Apr, [facility] [address] [facility] [place] [address] Mar, Acute right ankle pain M25.571 [facility] [address] [place] [facility] [place] [address] Mar, [facility] [address] [place] [address] Mar, [facility] [address] [facility] [address] Mar, [facility] [address] [place] [address] Mar, [facility] [address] [place] [address] Mar, [facility] [address] [place] [address] Mar, Nausea and vomiting, intractability of v omiting not specified, unspecified vomiting type R11.2 [facility] [address] [place] [address] Mar, [facility] [address] [place] [address] Mar, Loss of appetite R63.0 [facility] [address] [place] [address] Mar, [facility] [address] [place] [address] Mar, [facility] [address] [place] [address] Mar, [facility] [address] [place] [address] Feb, Abscess L02.91 [facility] [address] [place] [address] Feb, Acute right ankle pain M25.571 [facility] [address] [place] [address] Feb, [facility] [address] [place] [address] Feb, [facility] [address] [place] [address] Feb, [facility] [address] [place] [address] Feb, Acute right ankle pain M25.571 [facility] [address] [place] [address] Feb, Abscess L02.91 [facility] [address] [place] [id number] Jan, Asymptomatic human immunodef iciency virus (HIV) infection status Z21 ; Influenza vaccine needed Z23 and Acute right ankle pain M25.571 [facility] [address] [place] [address] Jan, Abscess L02.91 [facility] [address] [place] [address] Nov, [facility] [address] [place] [address] Nov, Abscess L02.91 [facility] [address] [place] [address] Nov, Anxiety F41.9 [facility] [address] [place] [address] Nov, Acute right ankle pain M25.571 [facility] [address] [place] [address] Nov, [facility] [address] [place] [address] Nov, [facility] [address] [place] [address] Nov, Hiccups R06.6 [facility] [address] [place] [address] 13 Nov, 2016 [facility] [address] [place] [address] Nov, [facility] [address] [place] [facility] [place] [address] Nov, [facility] [address] [place] [facility] [place] [address] Nov, [facility] [address] [place] [facility] [place] [address] Nov, [facility] [address] [place] [facility] [place] [address] Nov, [facility] [address] [place] [facility] [place] [address] Oct, [facility] [address] [place] [facility] [place] [address] Oct, [facility] [address] [place] [facility] [place] [address] Oct, [facility] [address] [place] [facility] [place] [address] Oct, Abscess L02.91 [facility] [address] [place] [facility] [place] [address] Oct, [facility] [address] [place] [facility] [place] [address] Oct, [facility] [address] [place] [facility] [place] [address] Oct, [facility] [address] [place] [facility] [place] [address] Oct, Abscess L02.91 and Acute right ankle ta n M25.571 [facility] [address] [place] [facility] [place] [address] Oct, [facility] [address] [place] [facility] [place] [address] Oct, [facility] [address] [place] [facility] [place] [address] Oct, Abscess L02.91 [facility] [address] [place] [facility] [place] [address] Oct, [facility] [address] [place] [facility] [place] [address] Oct, [facility] [address] [place] [id number] Oct, Asymptomatic human immunodef iciency virus (HIV) infection status Z21 ; detention current use of opiate analgesic Z79.891 ; Nicotine dependence, cigarettes, uncomplicated F17.210 ; Iron deficiency anemia due to chronic blood loss D50.0 ; GERD with esophagitis K21.0 ; Major depressive disorder, recurrent, moderate F33.1 and Generalized anxiety disorder F41.[address] [address] Sep, Major depressive disorder, recurrent, mo derate F33.[address] [address] Sep, [address] [address] Sep, [address] [address] Sep, [facility] [address] [address] Sep, [address] [address] Sep, [address] [address] Aug, [address] [address] Aug, [address] [address] Aug, [address] [address] Aug, Loss of appetite R63.0 ; Major depressiv e disorder, recurrent, moderate F33.1 and Functional diarrhea K59.[address] [address] Aug, Acute hemorrhoid K64.9 and Other osteoar thritis involving multiple joints M15.[address] [address] Aug, Abscess L02.[address] [place] [address] July, Chronic diarrhea K52.[address] [address] July, [facility] [address] [id number] July, Asymptomatic human immunodef iciency virus (HIV) infection status Z21 ; Nicotine dependence, cigarettes, uncomplicated F17.210 ; Chronic diarrhea K52.9 ; Abscess L02.91 ; GERD with esophagitis K21.0 ; Anxiety F41.9 and 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 [address] Jun, Pain in joint involving multiple sites M 25.[address] [address] Jun, [address] [address] Jun, Pain in joint involving multiple sites M 25.[address] [address] Jun, Pain in joint involving multiple sites M 25.50 ; GERD with esophagitis K21.0 and Intractable hiccups R06.[address] [address] May, Pain in joint involving multiple sites M 25.[address] [address] Apr, Pain in joint involving multiple sites M 25.50 and Anxiety F41.[address] [address] Apr, [address] [address] Apr, Chronic diarrhea K52.9 and Pain in joint involving multiple sites M25.50 [facility] [address] [id number] Apr, Asymptomatic human immunodef iciency virus (HIV) infection status Z21 ; Mild intermittent asthma without complication J45.20 ; Iron deficiency anemia due to chronic blood loss D50.0 ; Screening, lipid Z13.220 ; Chronic diarrhea K52.9 ; Abscess L02.91 and Projectile vomiting with nausea R11.12 [facility] [address] [place] [address] Feb, Acute hemorrhoid K64.9 [facility] [address] [place] [address] Jan, [facility] [address] [place] [address] Jan, Nausea and vomiting, intractability of v omiting not specified, unspecified vomiting type R11.2 and Acute right ankle pain M25.[address] [address] Jan, [facility] [address] [place] [address] Jan, Asymptomatic human immunodeficiency viru s (HIV) infection status Z21 ; Iron deficiency anemia due to chronic blood loss D50.0 and Generalized abdominal pain R10.84 [facility] [address] [place] [id number] Dec, Asymptomatic human immunodef iciency virus (HIV) infection status Z21 ; Mild intermittent asthma without complication J45.20 ; Influenza vaccine needed Z23 and Nicotine dependence, cigarettes, uncomplicated F17.210 [facility] [address] [place] [id number] 2 9 Oct, 2013 [facility] [address] [place] [id number] 2 8 Oct, 2013 [facility] [address] [place] [address] 08 May, 2012 [facility] [address] [place] [address] 14 Feb, 2012 [facility] [address] [place] [address] 14 Nov, 2011 [facility] [address] [place] [address] Aug, [facility] [address] [place] [address] Apr, [facility] [address] [facility] [address] [place] [id number] 1 Jan, IMMUNIZATIONS No Known Immunizations SOCIAL [...]
--- OUTSIDE RECORDS SUMMARY | 2019-07-04 12:03 | XMS REPORT ---
Author Author Sergio Li Organization 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 20 Active 181041114 Problem Iron deficiency anemia due to chronic blood loss D 50.0 Active 47315184 Problem Other osteoarthritis involving multiple joints M15 .8 Active 163061827 Problem Asymptomatic human immunodeficiency virus (HIV) infect ion status Z21 Active 18613683 Problem Other and unspecified noninfectious gastroenteritis an d colitis K52.9 Active 07289279 Problem Nicotine dependence, cigarettes, uncomplicated F17 .210 Active 24211459 Problem Other chronic pain G89.29 Active 8 7387342 Problem Generalized anxiety disorder F41.1 A ctive 78965429 Problem GERD with esophagitis K21.0 Active 522126076 Problem Functional diarrhea K59.1 Active 26871806 Problem Major depressive disorder, recurrent, moderate F33 .1 Active 771585903 Problem Loss of appetite R63.0 Active 798 18629 ALLERGIES No Information ENCOUNTERS Encounter Location Date Diagnosis [facility] [address] [facility] [address] [place] [id number] Sep, [facility] [address] [place] [address] Jun, [facility] [address] [place] [address] Jun, Other chronic pain G89.[address] [facility] [address] [place] [address] May, Other chronic pain G89.[address] [facility] [address] [place] [address] May, [address] [place] [address] May, [facility] [address] [place] [facility] [address] May, [facility] [address] [place] [facility] [address] May, [facility] [address] [place] [facility] [address] May, [facility] [address] [place] [facility] [address] Apr, [facility] [address] [place] [facility] [place] [address] Apr, [facility] [address] [place] [facility] [address] Apr, [facility] [address] [place] [facility] [address] Apr, [facility] [address] [place] [facility] [address] Apr, [facility] [address] [place] [facility] [address] Apr, [facility] [address] [place] [facility] [place] [address] Apr, [facility] [address] [place] [facility] [address] Apr, [facility] [address] [place] [facility] [address] Apr, [facility] [address] [facility] [place] [address] Apr, Other chronic pain G89.29 [facility] [address] [place] [facility] [place] [address] Apr, [facility] [address] [place], [place] [phone] 15 Apr, 2018 Asymptomatic human immunodef iciency virus (HIV) infection status Z21 ; Other chronic pain G89.29 and Screening for cardiovascular condition Z13.6 [facility] [address] [place] [facility] [id number] Apr, [facility] [address] [place] [facility] [address] Apr, [facility] [address] [place] [facility] [address] Apr, [facility] [address] [place] [facility] [address] Apr, Other chronic pain G89.29 [facility] [address] [place] [facility] [address] Mar, Loss of appetite R63.0 [facility] [address] [place] [facility] [address] Mar, [facility] [address] [place] [facility] [address] Mar, [facility] [address] [place] [facility] [address] Mar, [facility] [address] [facility] [place] [address] Mar, [facility] [address] [facility] [place] [address] Mar, Other chronic pain G89.29 [facility] [address] [facility] [place] [address] Mar, [facility] [address] [facility] [place] [address] Mar, [facility] [address] [place] [address] Mar, [facility] [address] [place] [address] Mar, Other chronic pain G89.29 [facility] [address] [facility] [place] [phone] Mar, Asymptomatic human immunodeficiency viru s (HIV) infection status Z21 [facility] [address] [place] [address] Mar, Other chronic pain G89.29 [facility] [address] [place] [place] [address] Mar, [facility] [address] [place] [address] Mar, [facility] [address] [place] [address] Feb, Other chronic pain G89.[address] [facility] [address] [place] [address] Feb, Other chronic pain G89.29 [facility] [address] [place], [place] [address] [place] [id number] Feb, Other chronic pain G89.29 [facility] [address] [place] [phone] Feb, Asymptomatic human immunodef iciency virus (HIV) infection status Z21 and Other chronic pain G89.[address] [facility] [address] [place] [address] Jan, Other chronic pain G89.[address] [facility] [address] [place] [address] Jan, Other chronic pain G89.[address] [facility] [address] [place] [address] Jan, Asymptomatic human immunodeficiency viru s (HIV) infection status Z21 [facility] [address] [place] [address] Jan, Other chronic pain G89.[address] [facility] [address] [place] [address] Jan, [facility] [address] [place] [address] Dec, Other chronic pain G89.[address] [facility] [address] [place] [address] Dec, Other chronic pain G89.29 [facility] [address] [id number] Nov, Asymptomatic human immunodef iciency virus (HIV) infection status Z21 ; Influenza vaccine needed Z23 and Other chronic pain G89.[address] [facility] [address] [place] [address] Nov, Other chronic pain G89.[address] [facility] [address] [place] [address] Oct, [facility] [address] [place] [address] Oct, Other chronic pain G89.[address] [facility] [address] [place] [address] 08 Oct, [address] [id number] Sep, Asymptomatic human immunodef iciency virus (HIV) infection status Z21 ; Other chronic pain G89.29 and Generalized anxiety disorder F41.[address] [facility] [address] [place] [address] Jun, [facility] [address] [place] [address] Jun, [facility] [address] [place] [address] Jun, [address] [id number] Jun, Asymptomatic human immunodef iciency virus (HIV) infection status Z21 ; Need for pneumococcal vaccine Z23 ; Major depressive disorder, recurrent, moderate F33.1 ; Loss of appetite R63.0 ; Other chronic pain G89.29 ; Other and unspecified noninfectious gastroenteritis and colitis K52.9 and Nausea R11.[address] [facility] [address] [place] [address] Jun, [facility] [address] [place] [address] Jun, Acute right ankle pain M25.571 [facility] [address] [place] [address] May, [facility] [address] [place] [address] May, Acute right ankle pain M25.[address] [facility] [address] [place] [address] Apr, [facility] [address] [place] [address] Apr, [facility] [address] [place] [address] Mar, Acute right ankle pain M25.571 [facility] [address] [facility] [place] [address] Mar, [facility] [address] [place] [facility] [address] Mar, [facility] [address] [place] [facility] [address] Mar, [facility] [address] [place] [facility] [address] Mar, [facility] [address] [place] [facility] [address] Mar, [facility] [address] [facility] [place] [address] Mar, Nausea and vomiting, intractability of v omiting not specified, unspecified vomiting type R11.2 [facility] [address] [facility] [place] [address] Mar, [facility] [address] [facility] [place] [address] Mar, Loss of appetite R63.0 [facility] [address] [facility] [address] Mar, [facility] [address] [facility] [place] [address] Mar, [facility] [address] [facility] [place] [address] Mar, [facility] [address] [facility] [place] [address] Feb, Abscess L02.91 [facility] [address] [facility] [place] [address] Feb, Acute right ankle pain M25.571 [facility] [address] [facility] [place] [address] Feb, [facility] [address] [facility] [place] [address] Feb, [facility] [address] [facility] [place] [address] Feb, [facility] [address] [place] [address] Feb, Acute right ankle pain M25.571 [facility] [address] [place] [address] Feb, Abscess L02.91 [facility] [address] [facility] [place] [phone] Jan, Asymptomatic human immunodef iciency virus (HIV) infection status Z21 ; Influenza vaccine needed Z23 and Acute right ankle pain M25.571 [facility] [address] [place] [address] Jan, Abscess L02.91 [facility] [address] [place] [address] Nov, [facility] [address] [place] [address] Nov, Abscess L02.91 [facility] [address] [place] [address] Nov, Anxiety F41.9 [facility] [address] [place] [address] Nov, Acute right ankle pain M25.571 [facility] [address] [place] [address] Nov, [facility] [address] [place] [address] Nov, [facility] [address] [place] [address] Nov, Hiccups R06.6 [facility] [address] [place] [address] 13 Nov, 2016 [facility] [address] [place] [address] Nov, [facility] [address] [place] [address] Nov, [facility] [address] [place] [address] Nov, [facility] [address] [place] [address] Nov, [facility] [address] [place] [facility] [address] Nov, [facility] [address] [place] [facility] [address] Oct, [facility] [address] [place] [facility] [address] Oct, [facility] [address] [place] [facility] [address] Oct, [facility] [address] [place] [facility] [place] [address] Oct, Abscess L02.91 [facility] [address] [place] [facility] [address] Oct, [facility] [address] [place] [facility] [address] Oct, [facility] [address] [place] [facility] [address] Oct, [facility] [address] [place] [facility] [address] Oct, Abscess L02.91 and Acute right ankle ta n M25.571 [facility] [address] [place] [facility] [place] [address] Oct, [facility] [address] [place] [facility] [address] Oct, [facility] [address] [place] [facility] [place] [address] Oct, Abscess L02.91 [facility] [address] [place] [facility] [place] [address] Oct, [facility] [address] [place] [facility] [place] [address] Oct, [facility] [address] [place] [phone] Oct, Asymptomatic human immunodef iciency virus (HIV) infection status Z21 ; USP current use of opiate analgesic Z79.891 ; Nicotine dependence, cigarettes, uncomplicated F17.210 ; Iron deficiency anemia due to chronic blood loss D50.0 ; GERD with esophagitis K21.0 ; Major depressive disorder, recurrent, moderate F33.1 and Generalized anxiety disorder F41.1 [facility] [address] [place] [facility] [place] [address] Sep, Major depressive disorder, recurrent, mo derate F33.1 [facility] [address] [place] [facility] [address] Sep, [facility] [address] [place] [facility] [address] Sep, [facility] [address] [place] [facility] [address] Sep, [facility] [address] [place] [facility] [address] Sep, [facility] [address] [place] [facility] [address] Sep, [facility] [address] [place] [facility] [address] Aug, [facility] [address] [place] [facility] [address] Aug, [facility] [address] [place] [facility] [address] Aug, [facility] [address] [facility] [place] [address] Aug, Loss of appetite R63.0 ; Major depressiv e disorder, recurrent, moderate F33.1 and Functional diarrhea K59.[address] [facility] [address] [place] [address] Aug, Acute hemorrhoid K64.9 and Other osteoar thritis involving multiple joints M15.[address] [facility] [address] [place] [address] Aug, Abscess L02.[address] [facility] [address] [place] [address] July, Chronic diarrhea K52.[address] [facility] [address] [place] [address] July, [facility] [address] [place] [id number] July, Asymptomatic human immunodef iciency virus (HIV) infection status Z21 ; Nicotine dependence, cigarettes, uncomplicated F17.210 ; Chronic diarrhea K52.9 ; Abscess L02.91 ; GERD with esophagitis K21.0 ; Anxiety F41.9 and 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 [address] Jun, Pain in joint involving multiple sites M 25.[address] [address] Jun, [address] [address] Jun, Pain in joint involving multiple sites M 25.[address] [address] Jun, Pain in joint involving multiple sites M 25.50 ; GERD with esophagitis K21.0 and Intractable hiccups R06.[address] [address] May, Pain in joint involving multiple sites M 25.[address] [address] Apr, Pain in joint involving multiple sites M 25.50 and Anxiety F41.[address] [address] 17 Apr, [address] [address] 10 Apr, 2016 Chronic diarrhea K52.9 and Pain in joint involving multiple sites M25.50 [facility] [address] [place] [id number] 10 Apr, 2016 Asymptomatic human immunodef iciency virus (HIV) infection status Z21 ; Mild intermittent asthma without complication J45.20 ; Iron deficiency anemia due to chronic blood loss D50.0 ; Screening, lipid Z13.220 ; Chronic diarrhea K52.9 ; Abscess L02.91 and Projectile vomiting with nausea R11.[address] [address] Feb, Acute hemorrhoid K64.[address] [address] Jan, [facility] [address] [place] [address] 26 Jan, 2016 Nausea and vomiting, intractability of v omiting not specified, unspecified vomiting type R11.2 and Acute right ankle pain M25.[address] [facility] [address] [place] [address] 10 Jan, [address] [facility] [address] [place] [address] 09 Jan, 2016 Asymptomatic human immunodeficiency viru s (HIV) infection status Z21 ; Iron deficiency anemia due to chronic blood loss D50.0 and Generalized abdominal pain R10.84 [facility] [address] [place] [phone] Dec, Asymptomatic human immunodef iciency virus (HIV) infection status Z21 ; Mild intermittent asthma without complication J45.20 ; Influenza vaccine needed Z23 and Nicotine dependence, cigarettes, uncomplicated F17.210 [facility] [address] [id number] [phone] Oct, 2013 [facility] [address] [id number] 8 Oct, [address] [facility] [address] [place] [address] 08 May, [address] [facility] [address] [place] [address] 14 Feb, [address] [facility] [address] [place] [address] Nov, [facility] [address] [place] [address] Aug, [facility] [address] [place] [address] Apr, [facility] [address] [phone] 8 Jan, 2011 IMMUNIZATIONS No Known [...]
--- OUTSIDE RECORDS SUMMARY | 2019-07-04 12:03 | XMS REPORT ---
Author Author Sergio Li Organization [facility] Address [address], [place] [id number] Care Team Providers Care Trustee Of Estate Name Role Phone Shana Li Unavailable PROBLEMS Type Condition ICD9-CM Code PYY96-CK Code Onset Dates Condition S tatus SNOMED Code Problem Mild intermittent asthma without complication J45. 20 Active 677684962 Problem Iron deficiency anemia due to chronic blood loss D 50.0 Active 76715655 Problem Other osteoarthritis involving multiple joints M15 .8 Active 140602883 Problem Asymptomatic human immunodeficiency virus (HIV) infect ion status Z21 Active 88120595 Problem Other and unspecified noninfectious gastroenteritis an d colitis K52.9 Active 38550627 Problem Nicotine dependence, cigarettes, uncomplicated F17 .210 Active 89612343 Problem Other chronic pain G89.29 Active 8 7073164 Problem Generalized anxiety disorder F41.1 A ctive 11209924 Problem GERD with esophagitis K21.0 Active 958397896 Problem Functional diarrhea K59.1 Active 95263243 Problem Major depressive disorder, recurrent, moderate F33 .1 Active 860261830 Problem Loss of appetite R63.0 Active 798 49623 ALLERGIES No Information ENCOUNTERS Encounter Location Date Diagnosis [facility] [address] [facility] [address] [place] [id number] Sep, [facility] [address] [place] [address] Jun, [facility] [address] [place] [address] Jun, Other chronic pain G89.29 [facility] [address] [place] [address] Jun, [facility] [address] [place] [address] Jun, Other chronic pain G89.29 [facility] [address] [place] [address], [place] [address] May, Other chronic pain G89.29 [facility] [address] [place] [address] May, [facility] [address] [place] [address] May, [facility] [address] [place] [address] May, [facility] [address] [place] [address] May, [facility] [address] [place] [address] May, [facility] [address] [place] [address] Apr, [facility] [address] [place] [address] Apr, [facility] [address] [place] [address] Apr, [facility] [address] [place] [address] Apr, [facility] [address] [place] [address] Apr, [facility] [address] [place] [address] Apr, [facility] [address] [place] [address] Apr, [facility] [address] [place] [address] Apr, [facility] [address] [place] [address] Apr, [facility] [address] [place] [address] Apr, Other chronic pain G89.29 [facility] [address] [place] [address] Apr, [facility] [address] [place] [address] [place] [id number] Apr, Asymptomatic human immunodef iciency virus (HIV) infection status Z21 ; Other chronic pain G89.29 and Screening for cardiovascular condition Z13.6 [facility] [address] [place] [address] 14 Apr, 2018 [facility] [address] [place] [address] 12 Apr, 2018 [facility] [address] [place] [address] Apr, [facility] [address] [place] [address] Apr, Other chronic pain G89.29 [facility] [address] [place] [address] Mar, Loss of appetite R63.0 [facility] [address] [place] [address] Mar, [facility] [address] [place] [address] Mar, [facility] [address] [place] [address] Mar, [facility] [address] [place] [address] Mar, [facility] [address] [place] [address] Mar, Other chronic pain G89.29 [facility] [address] [place] [address] Mar, [facility] [address] [place] [address] Mar, [facility] [address] [place] [address] Mar, [facility] [address] [place] [address] Mar, Other chronic pain G89.29 [facility] [address] [place] [address], [place] [phone] Mar, Asymptomatic human immunodeficiency viru s (HIV) infection status Z21 [facility] [address] [place] [address] Mar, Other chronic pain G89.29 [facility] [address] [place] [facility] [place] [address] Mar, [facility] [address] [place] [address] Mar, [facility] [address] [place] [address] Feb, Other chronic pain G89.29 [facility] [address] [place] [address] Feb, Other chronic pain G89.29 [facility] [address] [facility] [place] [id number] Feb, Other chronic pain G89.29 [facility] [address] [id number] Feb, Asymptomatic human immunodef iciency virus (HIV) infection status Z21 and Other chronic pain G89.29 [facility] [address] [place] [address] Jan, Other chronic pain G89.29 [facility] [address] [place] [address] Jan, Other chronic pain G89.29 [facility] [address] [place] [address] Jan, Asymptomatic human immunodeficiency viru s (HIV) infection status Z21 [facility] [address] [place] [address] Jan, Other chronic pain G89.29 [facility] [address] [place] [address] Jan, [facility] [address] [place] [address] Dec, Other chronic pain G89.29 [facility] [address] [place] [address] Dec, Other chronic pain G89.29 [facility] [address] [id number] Nov, Asymptomatic human immunodef iciency virus (HIV) infection status Z21 ; Influenza vaccine needed Z23 and Other chronic pain G89.29 [facility] [address] [place] [address] 05 Nov, 2017 Other chronic pain G89.29 [facility] [address] [place] [address] Oct, [facility] [address] [place] [address] 15 Oct, 2017 Other chronic pain G89.29 [facility] [address] [place] [address] 08 Oct, 2017 [facility] [address] [id number] Sep, Asymptomatic human immunodef iciency virus (HIV) infection status Z21 ; Other chronic pain G89.29 and Generalized anxiety disorder F41.1 [facility] [address] [place] [address] Jun, [facility] [address] [place] [address] Jun, [facility] [address] [place] [address] Jun, [facility] [address] [phone] Jun, Asymptomatic human immunodef iciency virus (HIV) infection status Z21 ; Need for pneumococcal vaccine Z23 ; Major depressive disorder, recurrent, moderate F33.1 ; Loss of appetite R63.0 ; Other chronic pain G89.29 ; Other and unspecified noninfectious gastroenteritis and colitis K52.9 and Nausea R11.0 [facility] [address] [place] [address] Jun, [facility] [address] [place] [address] Jun, Acute right ankle pain M25.[address] [address] May, [facility] [address] [place] [address] May, Acute right ankle pain M25.[address] [address] Apr, [facility] [address] [place] [address] Apr, [facility] [address] [place] [address] Mar, Acute right ankle pain M25.571 [facility] [address] [place] [address] Mar, [facility] [address] [place] [address] Mar, [facility] [address] [place] [address] Mar, [facility] [address] [place] [address] Mar, [facility] [address] [place] [address] Mar, [facility] [address] [place] [address] Mar, Nausea and vomiting, intractability of v omiting not specified, unspecified vomiting type R11.2 [facility] [address] [place] [address] Mar, [facility] [address] [place] [address] Mar, Loss of appetite R63.0 [facility] [address] [place] [address] Mar, [facility] [address] [place] [address] Mar, [facility] [address] [place] [address] Mar, [facility] [address] [place] [address] Feb, Abscess L02.91 [facility] [address] [place] [address] Feb, Acute right ankle pain M25.571 [facility] [address] [place] [address] Feb, [facility] [address] [place] [address] Feb, [facility] [address] [place] [address] Feb, [facility] [address] [place] [address] Feb, Acute right ankle pain M25.571 [facility] [address] [place] [address] Feb, Abscess L02.91 [facility] [address] [place] [address] [place] [phone] Jan, Asymptomatic human immunodef iciency virus (HIV) infection status Z21 ; Influenza vaccine needed Z23 and Acute right ankle pain M25.571 [facility] [address] [place] [address] Jan, Abscess L02.91 [facility] [address] [place] [address] Nov, [facility] [address] [place] [address] Nov, Abscess L02.91 [facility] [address] [place] [address] Nov, Anxiety F41.9 [facility] [address] [place] [address] Nov, Acute right ankle pain M25.571 [facility] [address] [place] [address] Nov, [facility] [address] [place] [address] 14 Nov, 2016 [facility] [address] [place] [address] Nov, Hiccups R06.6 [facility] [address] [place] [address] 13 Nov, 2016 [facility] [address] [place] [address] 08 Nov, 2016 [facility] [address] [place] [address] Nov, [facility] [address] [place] [address] Nov, [facility] [address] [place] [address] Nov, [facility] [address] [place] [address] Nov, [facility] [address] [place] [address] Oct, [facility] [address] [place] [address] Oct, [facility] [address] [place] [address] Oct, [facility] [address] [place] [address] Oct, Abscess L02.91 [facility] [address] [place] [address] Oct, [facility] [address] [place] [address] Oct, [facility] [address] [place] [address] Oct, [facility] [address] [place] [address] Oct, Abscess L02.91 and Acute right ankle ta n M25.571 [facility] [address] [place] [address] Oct, [facility] [address] [place] [address] Oct, [facility] [address] [place] [address] Oct, Abscess L02.91 [facility] [address] [place] [address] Oct, [facility] [address] [place] [address] Oct, [facility] [address] [place] [phone] Oct, Asymptomatic human immunodef iciency virus (HIV) infection status Z21 ; nursing home current use of opiate analgesic Z79.891 ; Nicotine dependence, cigarettes, uncomplicated F17.210 ; Iron deficiency anemia due to chronic blood loss D50.0 ; GERD with esophagitis K21.0 ; Major depressive disorder, recurrent, moderate F33.1 and Generalized anxiety disorder F41.1 [facility] [address] [place] [address] Sep, Major depressive disorder, recurrent, mo derate F33.1 [facility] [address] [place] [address] Sep, [facility] [address] [place] [address] Sep, [facility] [address] [place] [address] Sep, [facility] [address] [place] [address] Sep, [facility] [address] [place] [address] Sep, [facility] [address] [place] [address] Aug, [facility] [address] [place] [address] Aug, [facility] [address] [place] [address] Aug, [facility] [address] [place] [address] Aug, Loss of appetite R63.0 ; Major depressiv e disorder, recurrent, moderate F33.1 and Functional diarrhea K59.1 [facility] [address] [place] [address] 05 Aug, 2016 Acute hemorrhoid K64.9 and Other osteoar thritis involving multiple joints M15.8 [facility] [address] [place] [address], [place] [address] Aug, Abscess L02.91 [facility] [address] [place] [address] July, Chronic diarrhea K52.9 [facility] [address] [place] [address] July, [facility] [address] [phone] July, Asymptomatic human immunodef iciency virus (HIV) infection status Z21 ; Nicotine dependence, cigarettes, uncomplicated F17.210 ; Chronic diarrhea K52.9 ; Abscess L02.91 ; GERD with esophagitis K21.0 ; Anxiety F41.9 and 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 [address] Jun, Pain in joint involving multiple sites M 25.[address] [address] Jun, [address] [address] Jun, Pain in joint involving multiple sites M 25.[address] [address] Jun, Pain in joint involving multiple sites M 25.50 ; GERD with esophagitis K21.0 and Intractable hiccups R06.[address] [address] May, Pain in joint involving multiple sites M 25.[address] [address] Apr, Pain in joint involving multiple sites M 25.50 and Anxiety F41.[address] [address] Apr, [address] [address] Apr, Chronic diarrhea K52.9 and Pain in joint involving multiple sites M25.[address] [id number] Apr, Asymptomatic human immunodef iciency virus (HIV) infection status Z21 ; Mild intermittent asthma without complication J45.20 ; Iron deficiency anemia due to chronic blood loss D50.0 ; Screening, lipid Z13.220 ; Chronic diarrhea K52.9 ; Abscess L02.91 and Projectile vomiting with nausea R11.12 [facility] [address] [place] [address] Feb, Acute hemorrhoid K64.9 [facility] [address] [place] [address] Jan, [facility] [address] [place] [address] 26 Jan, 2016 Nausea and vomiting, intractability of v omiting not specified, unspecified vomiting type R11.2 and Acute right ankle pain M25.571 [facility] [address] [place] [address] 10 Jan, 2016 [facility] [address] [place] [address] 09 Jan, 2016 Asymptomatic human immunodeficiency viru s (HIV) infection status Z21 ; Iron deficiency anemia due to chronic blood loss D50.0 and Generalized abdominal pain R10.84 [facility] [address] [place], [place] [phone] Dec, Asymptomatic human immunodef iciency virus (HIV) infection status Z21 ; Mild intermittent asthma without complication J45.20 ; Influenza vaccine needed Z23 and Nicotine dependence, cigarettes, uncomplicated F17.210 [facility] [address] [id number] Oct, 2013 [facility] [address] [id number] 2 8 Oct, 2013 [facility] [address] [place] [address] 08 May, 2012 [facility] [address] [place] [address] 14 Feb, 2012 [facility] [address] [place] [address] 14 Nov, 2011 [facility] [address] [place] [address] Aug, [facility] [address] [place] [address] Apr, [facility] [address] [phone] Jan, IMMUNIZATIONS No Known Immunizations SOCIAL HISTORY [...]
--- OUTSIDE RECORDS SUMMARY | 2019-07-04 12:03 | XMS REPORT ---
Author Author Sergio Adams [facility] Address [address] [place], [place] [id number] Care Team Providers Care Client Operations Manager Name Role Phone Araseli Adams Unavailable PROBLEMS Type Condition ICD9-CM Code EKU28-EC Code Onset Dates Condition S tatus SNOMED Code Problem Mild intermittent asthma without complication J45. 20 Active 328829377 Problem Iron deficiency anemia due to chronic blood loss D 50.0 Active 03477864 Problem Other osteoarthritis involving multiple joints M15 .8 Active 554908078 Problem Asymptomatic human immunodeficiency virus (HIV) infect ion status Z21 Active 74299731 Problem Other and unspecified noninfectious gastroenteritis an d colitis K52.9 Active 70982926 Problem Nicotine dependence, cigarettes, uncomplicated F17 .210 Active 33031705 Problem Other chronic pain G89.29 Active 8 0054985 Problem Generalized anxiety disorder F41.1 A ctive 62024938 Problem GERD with esophagitis K21.0 Active 279652012 Problem Functional diarrhea K59.1 Active 79080603 Problem Major depressive disorder, recurrent, moderate F33 .1 Active 818265339 Problem Loss of appetite R63.0 Active 798 16047 ALLERGIES No Information ENCOUNTERS Encounter Location Date Diagnosis [facility], [place], [facility] [address] [place] [address] [place] [id number] Sep, [facility] [address] [place] [address] Jun, [facility] [address] [place] [address] Jun, Other chronic pain G89.29 [facility] [address] [place] [address] Jun, [facility] [address] [place] [address] Jun, Other chronic pain G89.29 [facility] [address] [place] [facility] [place] [address] May, Other chronic pain G89.29 [facility] [address] [place] [facility] [place] [address] May, [facility] [address] [place] [facility] [place] [address] May, [facility] [address] [place] [facility] [place] [address] May, [facility] [address] [place] [facility] [place] [address] May, [facility] [address] [place] [facility] [place] [address] May, [facility] [address] [place] [facility] [place] [address] Apr, [facility] [address] [place] [facility] [place] [address] Apr, [facility] [address] [place] [facility] [place] [address] Apr, [facility] [address] [place] [place] [address] Apr, [facility] [address] [place] [facility] [place] [address] Apr, [facility] [address] [place] [facility] [place] [address] Apr, [facility] [address] [place] [facility] [place] [address] Apr, [facility] [address] [place] [facility] [place] [address] Apr, [facility] [address] [place] [facility] [place] [address] Apr, [facility] [address] [place] [facility] [place] [address] Apr, Other chronic pain G89.29 [facility] [address] [place] [place] [address] Apr, [facility] [address] [place] [address] [place] [phone] Apr, Asymptomatic human immunodef iciency virus (HIV) infection status Z21 ; Other chronic pain G89.29 and Screening for cardiovascular condition Z13.6 [facility] [address] [place] [address] 14 Apr, 2018 [facility] [address] [place] [address] 12 Apr, 2018 [facility] [address] [place] [address] Apr, [facility] [address] [place] [address] Apr, Other chronic pain G89.29 [facility] [address] [place] [address] Mar, Loss of appetite R63.0 [facility] [address] [place] [address] Mar, [facility] [address] [place] [address] Mar, [facility] [address] [place] [address] Mar, [facility] [address] [place] [address] Mar, [facility] [address] [place] [address] Mar, Other chronic pain G89.29 [facility] [address] [place] [address] Mar, [facility] [address] [place] [address] Mar, [facility] [address] [place] [address] Mar, [facility] [address] [place] [address] Mar, Other chronic pain G89.29 [facility] [address] [place] [address], S [id number] Mar, 2018 Asymptomatic human immunodeficiency viru s (HIV) infection status Z21 [facility] [address] [place] [address] Mar, Other chronic pain G89.29 [facility] [address] [place] [address] Mar, [facility] [address] [place] [address] Mar, [facility] [address] [place] [address] Feb, Other chronic pain G89.29 [facility] [address] [place] [address] Feb, Other chronic pain G89.29 [facility] [address] [facility] [place] [id number] Feb, Other chronic pain G89.29 [facility] [address] [id number] Feb, Asymptomatic human immunodef iciency virus (HIV) infection status Z21 and Other chronic pain G89.29 [facility] [address] [place] [address] Jan, Other chronic pain G89.29 [facility] [address] [place] [address] Jan, Other chronic pain G89.29 [facility] [address] [place] [address] Jan, Asymptomatic human immunodeficiency viru s (HIV) infection status Z21 [facility] [address] [place] [address] Jan, Other chronic pain G89.29 [facility] [address] [place] [address] Jan, [facility] [address] [place] [address] Dec, Other chronic pain G89.29 [facility] [address] [place] [address] Dec, Other chronic pain G89.29 [facility] [address] [id number] Nov, Asymptomatic human immunodef iciency virus (HIV) infection status Z21 ; Influenza vaccine needed Z23 and Other chronic pain G89.29 [facility] [address] [place] [address] 05 Nov, 2017 Other chronic pain G89.29 [facility] [address] [place] [address] Oct, [facility] [address] [place] [address] Oct, Other chronic pain G89.29 [facility] [address] [place] [address] Oct, [facility] [address] [place] [id number] Sep, Asymptomatic human immunodef iciency virus (HIV) infection status Z21 ; Other chronic pain G89.29 and Generalized anxiety disorder F41.1 [facility] [address] [place] [address] Jun, [facility] [address] [place] [address] Jun, [facility] [address] [place] [address] Jun, [address] [id number] Jun, Asymptomatic human immunodef iciency virus (HIV) infection status Z21 ; Need for pneumococcal vaccine Z23 ; Major depressive disorder, recurrent, moderate F33.1 ; Loss of appetite R63.0 ; Other chronic pain G89.29 ; Other and unspecified noninfectious gastroenteritis and colitis K52.9 and Nausea R11.0 [facility] [address] [place] [address] Jun, [facility] [address] [place] [address] Jun, Acute right ankle pain M25.[address] [address] May, [facility] [address] [place] [address] May, Acute right ankle pain M25.[address] [address] Apr, [facility] [address] [place] [address] Apr, [facility] [address] [place] [address] Mar, Acute right ankle pain M25.571 [facility] [address] [place] [address] Mar, [facility] [address] [place] [address] Mar, [facility] [address] [place] [address] Mar, [facility] [address] [place] [address] Mar, [facility] [address] [place] [address] Mar, [facility] [address] [place] [address] Mar, Nausea and vomiting, intractability of v omiting not specified, unspecified vomiting type R11.2 [facility] [address] [place] [address] Mar, [facility] [address] [place] [address] Mar, Loss of appetite R63.0 [facility] [address] [place] [address] Mar, [facility] [address] [place] [address] Mar, [facility] [address] [place] [address] Mar, [facility] [address] [place] [address] Feb, Abscess L02.91 [facility] [address] [place] [address] Feb, Acute right ankle pain M25.571 [facility] [address] [place] [address] Feb, [facility] [address] [place] [address] Feb, [facility] [address] [place] [address] Feb, [facility] [address] [place] [address] Feb, Acute right ankle pain M25.571 [facility] [address] [place] [address] Feb, Abscess L02.91 [facility] [place] [address] [facility] [address] [place] [phone] Jan, Asymptomatic human immunodef iciency virus (HIV) infection status Z21 ; Influenza vaccine needed Z23 and Acute right ankle pain M25.571 [facility] [address] [place] [address] Jan, Abscess L02.91 [facility] [address] [place] [address] Nov, [facility] [address] [place] [address] Nov, Abscess L02.91 [facility] [address] [place] [address] Nov, Anxiety F41.9 [facility] [address] [place] [address] Nov, Acute right ankle pain M25.571 [facility] [address] [place] [address] 15 Nov, 2016 [facility] [address] [place] [address] 14 Nov, 2016 [facility] [address] [place] [address] 14 Nov, 2016 Hiccups R06.6 [facility] [address] [place] [address] 13 Nov, 2016 [facility] [address] [place] [address] 08 Nov, 2016 [facility] [address] [place] [address] Nov, [facility] [address] [place] [facility] [place] [address] Nov, [facility] [address] [place] [facility] [place] [address] Nov, [facility] [address] [place] [facility] [place] [address] Nov, [facility] [address] [place] [facility] [place] [address] Oct, [facility] [address] [place] [facility] [place] [address] Oct, [facility] [address] [place] [facility] [place] [address] Oct, [facility] [address] [place] [facility] [place] [address] Oct, Abscess L02.91 [facility] [address] [place] [facility] [place] [address] Oct, [facility] [address] [place] [facility] [place] [address] Oct, [facility] [address] [place] [facility] [place] [address] Oct, [facility] [address] [place] [facility] [place] [address] Oct, Abscess L02.91 and Acute right ankle ta n M25.571 [facility] [address] [place] [facility] [place] [address] Oct, [facility] [address] [place] [facility] [place] [address] Oct, [facility] [address] [place] [facility] [place] [address] Oct, Abscess L02.91 [facility] [address] [place] [facility] [place] [address] Oct, [facility] [address] [place] [facility] [place] [address] Oct, [address] [place] [phone] Oct, Asymptomatic human immunodef iciency virus (HIV) infection status Z21 ; 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 Z79.891 ; Nicotine dependence, cigarettes, uncomplicated F17.210 ; Iron deficiency anemia due to chronic blood loss D50.0 ; GERD with esophagitis K21.0 ; Major depressive disorder, recurrent, moderate F33.1 and Generalized anxiety disorder F41.1 [facility] [address] [place] [facility] [place] [address] Sep, Major depressive disorder, recurrent, mo derate F33.1 [facility] [address] [place] [place] [address] Sep, [facility] [address] [place] [address] Sep, [facility] [address] [place] [address] Sep, [facility] [address] [place] [address] Sep, [facility] [address] [place] [address] Sep, [facility] [address] [place] [address] Aug, [facility] [address] [place] [address] Aug, [facility] [address] [place] [address] Aug, [facility] [address] [place] [address] Aug, Loss of appetite R63.0 ; Major depressiv e disorder, recurrent, moderate F33.1 and Functional diarrhea K59.1 [facility] [address] [place] [address] Aug, Acute hemorrhoid K64.9 and Other osteoar thritis involving multiple joints M15.8 [facility] [address] [place] [address] Aug, Abscess L02.91 [facility] [address] [place] [address] July, Chronic diarrhea K52.[address] [facility] [address] July, [address] [phone] July, Asymptomatic human immunodef iciency virus (HIV) infection status Z21 ; Nicotine dependence, cigarettes, uncomplicated F17.210 ; Chronic diarrhea K52.9 ; Abscess L02.91 ; GERD with esophagitis K21.0 ; Anxiety F41.9 and 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 [address] Jun, Pain in joint involving multiple sites M 25.[address] [address] Jun, [address] [address] Jun, Pain in joint involving multiple sites M 25.[address] [address] Jun, Pain in joint involving multiple sites M 25.50 ; GERD with esophagitis K21.0 and Intractable hiccups R06.[address] [address] May, Pain in joint involving multiple sites M 25.[address] [address] Apr, Pain in joint involving multiple sites M 25.50 and Anxiety F41.[address] [address] Apr, [address] [address] Apr, Chronic diarrhea K52.9 and Pain in joint involving multiple sites M25.[address] [id number] Apr, Asymptomatic human immunodef iciency virus (HIV) infection status Z21 ; Mild intermittent asthma without complication J45.20 ; Iron deficiency anemia due to chronic blood loss D50.0 ; Screening, lipid Z13.220 ; Chronic diarrhea K52.9 ; Abscess L02.91 and Projectile vomiting with nausea R11.12 [facility] [address] [place] [address] Feb, Acute hemorrhoid K64.9 [facility] [address] [place] [address] Jan, [facility] [address] [place] [address] Jan, Nausea and vomiting, intractability of v omiting not specified, unspecified vomiting type R11.2 and Acute right ankle pain M25.571 [facility] [address] [place] [address] Jan, [facility] [address] [place] [address] 09 Jan, 2016 Asymptomatic human immunodeficiency viru s (HIV) infection status Z21 ; Iron deficiency anemia due to chronic blood loss D50.0 and Generalized abdominal pain R10.84 [facility] [place] [address] [place] [phone] Dec, Asymptomatic human immunodef iciency virus (HIV) infection status Z21 ; Mild intermittent asthma without complication J45.20 ; Influenza vaccine needed Z23 and Nicotine dependence, cigarettes, uncomplicated F17.210 [facility] [address] [id number] 9 Oct, 2013 [facility] [address] [id number] [phone] Oct, 2013 [facility] [address] [place] [address] 08 May, 2012 [facility] [address] [place] [address] 14 Feb, 2012 [facility] [address] [place] [address] 14 Nov, 2011 [facility] [address] [place] [address] Aug, [facility] [address] [place] [address] 17 Apr, 2011 [facility] [address] [phone] Jan, IMMUNIZATIONS No Known Immunizations SOCIAL HISTORY [...]
--- OUTSIDE RECORDS SUMMARY | 2019-07-04 12:03 | XMS REPORT ---
Author Author Sergio Li Organization [facility] Address [address] [place], [place] [id number] Care Team Providers Care Business Information Consultant Name Role Phone Shana Li Unavailable PROBLEMS Type Condition ICD9-CM Code WTP92-RX Code Onset Dates Condition S tatus SNOMED Code Problem Mild intermittent asthma without complication J45. 20 Active 171275689 Problem Iron deficiency anemia due to chronic blood loss D 50.0 Active 06931017 Problem Other osteoarthritis involving multiple joints M15 .8 Active 306659967 Problem Asymptomatic human immunodeficiency virus (HIV) infect ion status Z21 Active 10365865 Problem Other and unspecified noninfectious gastroenteritis an d colitis K52.9 Active 82645451 Problem Nicotine dependence, cigarettes, uncomplicated F17 .210 Active 50563974 Problem Other chronic pain G89.29 Active 8 7629342 Problem Generalized anxiety disorder F41.1 A ctive 32250787 Problem GERD with esophagitis K21.0 Active 497702253 Problem Functional diarrhea K59.1 Active 64840206 Problem Major depressive disorder, recurrent, moderate F33 .1 Active 983207816 Problem Loss of appetite R63.0 Active [id number] ALLERGIES No Information ENCOUNTERS Encounter Location Date Diagnosis [facility] [address] [facility] [address] [place], [place] [id number] Sep, [facility] [address] [place] [address] Jun, Other chronic pain G89.29 [facility] [address] [place] [address] May, Other chronic pain G89.29 [facility] [address] [place] [address] May, [facility] [address] [place] [address] May, [facility] [address] [place] [address], [place] [address] May, [facility] [address] [place] [facility] [place] [address] May, [facility] [address] [place] [facility] [place] [address] May, [facility] [address] [place] [facility] [place] [address] Apr, [facility] [address] [place] [facility] [place] [address] Apr, [facility] [address] [place] [facility] [place] [address] Apr, [facility] [address] [place] [facility] [place] [address] Apr, [facility] [address] [place] [facility] [place] [address] Apr, [facility] [address] [place] [facility] [place] [address] Apr, [facility] [address] [place] [facility] [place] [address] Apr, [facility] [address] [place] [facility] [place] [address] Apr, [facility] [address] [place] [facility] [place] [address] Apr, [facility] [address] [place] [facility] [place] [address] Apr, Other chronic pain G89.29 [facility] [address] [place] [facility] [place] [address] Apr, [facility] [address] [place], [place] [id number] Apr, Asymptomatic human immunodef iciency virus (HIV) infection status Z21 ; Other chronic pain G89.29 and Screening for cardiovascular condition Z13.6 [facility] [address] [place] [facility] [place] [address] Apr, [facility] [address] [place] [facility] [place] [address] Apr, [facility] [address] [place] [facility] [place] [address] Apr, [facility] [address] [place] [facility] [place] [address] Apr, Other chronic pain G89.29 [facility] [address] [place] [facility] [place] [address] Mar, Loss of appetite R63.0 [facility] [address] [place] [facility] [place] [address] Mar, [facility] [address] [place] [facility] [place] [address] Mar, [facility] [address] [place] [facility] [place] [address] Mar, [facility] [address] [place] [facility] [place] [address] Mar, [facility] [address] [place] [facility] [place] [address] Mar, Other chronic pain G89.29 [facility] [address] [place] [facility] [place] [address] Mar, [facility] [address] [place] [facility] [place] [address] Mar, [facility] [address] [facility] [address] Mar, [facility] [address] [facility] [address] Mar, Other chronic pain G89.29 [facility] [address] [facility] [place] [id number] Mar, Asymptomatic human immunodeficiency viru s (HIV) infection status Z21 [facility] [address] [facility] [address] Mar, Other chronic pain G89.29 [facility] [address] [place] [address] Mar, [facility] [address] [facility] [address] Mar, [facility] [address] [facility] [address] Feb, Other chronic pain G89.29 [facility] [address] [place] [address] Feb, Other chronic pain G89.29 [facility] [address] [place] [address] [place] [id number] Feb, Other chronic pain G89.29 [facility] [address] [id number] Feb, Asymptomatic human immunodef iciency virus (HIV) infection status Z21 and Other chronic pain G89.29 [facility] [address] [place] [address] Jan, Other chronic pain G89.29 [facility] [address] [place] [address] Jan, Other chronic pain G89.29 [facility] [address] [place] [address] Jan, Asymptomatic human immunodeficiency viru s (HIV) infection status Z21 [facility] [address] [place] [address] Jan, Other chronic pain G89.29 [facility] [address] [place] [address] Jan, [facility] [address] [place] [address] Dec, Other chronic pain G89.29 [facility] [address] [place] [address] Dec, Other chronic pain G89.29 [facility] [address] [id number] Nov, Asymptomatic human immunodef iciency virus (HIV) infection status Z21 ; Influenza vaccine needed Z23 and Other chronic pain G89.29 [facility] [address] [place] [address] Nov, Other chronic pain G89.29 [facility] [address] [place] [address] Oct, [facility] [address] [place] [address] Oct, Other chronic pain G89.29 [facility] [address] [place] [address] Oct, [address] [id number] Sep, Asymptomatic human immunodef iciency virus (HIV) infection status Z21 ; Other chronic pain G89.29 and Generalized anxiety disorder F41.1 [facility] [address] [place] [address] Jun, [facility] [address] [place] [address] Jun, [facility] [address] [place] [address] Jun, [facility] [address] [id number] Jun, Asymptomatic human immunodef iciency virus (HIV) infection status Z21 ; Need for pneumococcal vaccine Z23 ; Major depressive disorder, recurrent, moderate F33.1 ; Loss of appetite R63.0 ; Other chronic pain G89.29 ; Other and unspecified noninfectious gastroenteritis and colitis K52.9 and Nausea R11.[address] [address] Jun, [facility] [address] [place] [address] Jun, Acute right ankle pain M25.[address] [address] May, [facility] [address] [place] [address] May, Acute right ankle pain M25.571 [facility] [address] [place] [address] Apr, [facility] [address] [place] [address] Apr, [facility] [address] [place] [address] Mar, Acute right ankle pain M25.[address] [address] Mar, [facility] [address] [place] [facility] [place] [address] Mar, [facility] [address] [place] [facility] [place] [address] Mar, [facility] [address] [place] [facility] [place] [address] Mar, [facility] [address] [place] [facility] [place] [address] Mar, [facility] [address] [place] [facility] [place] [address] Mar, Nausea and vomiting, intractability of v omiting not specified, unspecified vomiting type R11.2 [facility] [address] [place] [facility] [place] [address] Mar, [facility] [address] [facility] [address] Mar, Loss of appetite R63.0 [facility] [address] [place] [facility] [place] [address] Mar, [facility] [address] [facility] [address] Mar, [facility] [address] [place] [facility] [place] [address] Mar, [facility] [address] [place] [facility] [place] [address] Feb, Abscess L02.91 [facility] [address] [facility] [address] Feb, Acute right ankle pain M25.571 [facility] [address] [place] [facility] [place] [address] Feb, [facility] [address] [facility] [address] Feb, [facility] [address] [facility] [address] Feb, [facility] [address] [facility] [address] Feb, Acute right ankle pain M25.571 [facility] [address] [place] [address] Feb, Abscess L02.91 [facility] [address] [facility] [address] [place], [place] [id number] Jan, Asymptomatic human immunodef iciency virus (HIV) infection status Z21 ; Influenza vaccine needed Z23 and Acute right ankle pain M25.571 [facility] [address] [place] [address] Jan, Abscess L02.91 [facility] [address] [place] [address] Nov, [facility] [address] [place] [address] Nov, Abscess L02.91 [facility] [address] [place] [address] Nov, Anxiety F41.9 [facility] [address] [place] [address] Nov, Acute right ankle pain M25.571 [facility] [address] [place] [address] Nov, [facility] [address] [place] [address] Nov, [facility] [address] [place] [address] Nov, Hiccups R06.6 [facility] [address] [place] [address] Nov, [facility] [address] [place] [address] Nov, [facility] [address] [place] [address] Nov, [facility] [address] [place] [address] Nov, [facility] [address] [place] [address] Nov, [facility] [address] [place] [address] Nov, [facility] [address] [place] [facility] [place] [address] Oct, [facility] [address] [place] [address] Oct, [facility] [address] [place] [facility] [place] [address] Oct, [facility] [address] [place] [facility] [place] [address] Oct, Abscess L02.91 [facility] [address] [place] [facility] [place] [address] Oct, [facility] [address] [place] [facility] [place] [address] Oct, [facility] [address] [place] [address] Oct, [facility] [address] [place] [facility] [place] [address] Oct, Abscess L02.91 and Acute right ankle ta n M25.571 [facility] [address] [place] [facility] [place] [address] Oct, [facility] [address] [place] [facility] [place] [address] Oct, [facility] [address] [place] [facility] [place] [address] Oct, Abscess L02.91 [facility] [address] [place] [facility] [place] [address] Oct, [facility] [address] [place] [facility] [place] [address] Oct, [facility] [address] [place] [id number] Oct, Asymptomatic human immunodef iciency virus (HIV) infection status Z21 ; 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 ; Nicotine dependence, cigarettes, uncomplicated F17.210 ; Iron deficiency anemia due to chronic blood loss D50.0 ; GERD with esophagitis K21.0 ; Major depressive disorder, recurrent, moderate F33.1 and Generalized anxiety disorder F41.1 [facility] [address] [place] [facility] [place] [address] Sep, Major depressive disorder, recurrent, mo derate F33.1 [facility] [address] [place] [address] Sep, [facility] [address] [place] [address] Sep, [facility] [address] [place] [address] Sep, [facility] [address] [facility] [address] Sep, [facility] [address] [facility] [address] Sep, [facility] [address] [place] [address], [place] [address] Aug, [facility] [address] [facility] [address] Aug, [facility] [address] [place] [address] Aug, [facility] [address] [place] [address] Aug, Loss of appetite R63.0 ; Major depressiv e disorder, recurrent, moderate F33.1 and Functional diarrhea K59.[address] [address] Aug, Acute hemorrhoid K64.9 and Other osteoar thritis involving multiple joints M15.[address] [address] Aug, Abscess L02.91 [facility] [address] [place] [address] July, Chronic diarrhea K52.[address] [address] July, [facility] [address] [place], [place] [id number] July, Asymptomatic human immunodef iciency virus (HIV) infection status Z21 ; Nicotine dependence, cigarettes, uncomplicated F17.210 ; Chronic diarrhea K52.9 ; Abscess L02.91 ; GERD with esophagitis K21.0 ; Anxiety F41.9 and 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 [facility] [address] [place] [address] Jun, Pain in joint involving multiple sites M 25.[address] [address] Jun, [address] [address] Jun, Pain in joint involving multiple sites M 25.[address] [address] Jun, Pain in joint involving multiple sites M 25.50 ; GERD with esophagitis K21.0 and Intractable hiccups R06.[address] [address] May, Pain in joint involving multiple sites M 25.[address] [address] Apr, Pain in joint involving multiple sites M 25.50 and Anxiety F41.[address] [address] Apr, [address] [address] Apr, Chronic diarrhea K52.9 and Pain in joint involving multiple sites M25.50 [facility] [address] [place] [id number] 10 Apr, 2016 Asymptomatic human immunodef iciency virus (HIV) infection status Z21 ; Mild intermittent asthma without complication J45.20 ; Iron deficiency anemia due to chronic blood loss D50.0 ; Screening, lipid Z13.220 ; Chronic diarrhea K52.9 ; Abscess L02.91 and Projectile vomiting with nausea R11.[address] [address] Feb, Acute hemorrhoid K64.[address] [address] Jan, [address] [address] Jan, Nausea and vomiting, intractability of v omiting not specified, unspecified vomiting type R11.2 and Acute right ankle pain M25.571 [facility] [address] [place] [address] Jan, [facility] [address] [place] [address] 09 Jan, 2016 Asymptomatic human immunodeficiency viru s (HIV) infection status Z21 ; Iron deficiency anemia due to chronic blood loss D50.0 and Generalized abdominal pain R10.84 [facility] [address] [facility] [address] [place] [id number] Dec, Asymptomatic human immunodef iciency virus (HIV) infection status Z21 ; Mild intermittent asthma without complication J45.20 ; Influenza vaccine needed Z23 and Nicotine dependence, cigarettes, uncomplicated F17.210 [place] [address] [id number] 2 9 Oct, 2013 [place] 7[address] [id number] 2 8 Oct, 2013 [facility] [address] [place] [address] 08 May, 2012 [facility] [address] [place] [address] Feb, [facility] [address] [place] [address] 14 Nov, 2011 [facility] [address] [place] [address] Aug, [facility] [address] [place] [address] Apr, [place] [address] [id number] 1 Jan, IMMUNIZATIONS No Known Immunizations SOCIAL [...]
--- OUTSIDE RECORDS SUMMARY | 2019-07-04 12:03 | XMS REPORT ---
Author Author Sergio Adams [facility] Address [address] [place], [place] [id number] Care Team Providers Care Radio Electrician Name Role Phone Araseli Adams Unavailable PROBLEMS Type Condition ICD9-CM Code GWZ12-SR Code Onset Dates Condition S tatus SNOMED Code Problem Mild intermittent asthma without complication J45. 20 Active 980065697 Problem Iron deficiency anemia due to chronic blood loss D 50.0 Active 10498684 Problem Other osteoarthritis involving multiple joints M15 .8 Active 593501213 Problem Asymptomatic human immunodeficiency virus (HIV) infect ion status Z21 Active 11320327 Problem Other and unspecified noninfectious gastroenteritis an d colitis K52.9 Active 35485060 Problem Nicotine dependence, cigarettes, uncomplicated F17 .210 Active 54437933 Problem Other chronic pain G89.29 Active 8 7157127 Problem Generalized anxiety disorder F41.1 A ctive 75298932 Problem GERD with esophagitis K21.0 Active 675007144 Problem Functional diarrhea K59.1 Active 99448495 Problem Major depressive disorder, recurrent, moderate F33 .1 Active 176856758 Problem Loss of appetite R63.0 Active 798 12176 ALLERGIES No Information ENCOUNTERS Encounter Location Date Diagnosis [facility] [address] [place] [address] [place] [phone] Jun, [facility] [address] [place] [address] May, Other chronic pain G89.[address] [facility] [address] [place] [address] May, [facility] [address] [place] [address] May, [facility] [address] [place] [address] May, [address] [address] May, [facility] [address] [facility] [place] [address] May, [facility] [address] [facility] [place] [facility] [address] Apr, [facility] [address] [facility] [place] [facility] [address] Apr, [facility] [address] [facility] [place] [address] Apr, [facility] [address] [facility] [place] [facility] [address] Apr, [facility] [address] [facility] [place] [facility] [address] Apr, [facility] [address] [facility] [place] [address] Apr, [facility] [address] [place] [address] Apr, [facility] [address] [facility] [place] [address] Apr, [facility] [address] [place] [address] Apr, [facility] [address] [place] [address] Apr, Other chronic pain G89.29 [facility] [address] [place] [address] Apr, [facility] [address] [place] [phone] Apr, Asymptomatic human immunodef iciency virus (HIV) infection status Z21 ; Other chronic pain G89.29 and Screening for cardiovascular condition Z13.6 [facility] [address] [place] [address] Apr, [facility] [address] [place] [address] Apr, [facility] [address] [place] [address] Apr, [facility] [address] [facility] [place] [facility] [address] Apr, Other chronic pain G89.29 [facility] [address] [facility] [place] [facility] [address] Mar, Loss of appetite R63.0 [facility] [address] [facility] [place] [address] Mar, [facility] [address] [place] [address] Mar, [facility] [address] [facility] [place] [address] Mar, [facility] [address] [place] [address] Mar, [facility] [address] [place] [address] Mar, Other chronic pain G89.29 [facility] [address] [place] [address] Mar, [facility] [address] [place] [address] Mar, [facility] [address] [place] [address] Mar, [facility] [address] [place] [address] Mar, Other chronic pain G89.29 [facility] [address] [facility] [id number] Mar, Asymptomatic human immunodeficiency viru s (HIV) infection status Z21 [facility] [address] [place] [address] Mar, Other chronic pain G89.29 [facility] [address] [place] [facility] [place] [address] Mar, [facility] [address] [place] [address] Mar, [facility] [address] [place] [address] Feb, Other chronic pain G89.29 [facility] [address] [place] [address] Feb, Other chronic pain G89.29 [facility] [address] [place], [place] [address] [id number] Feb, Other chronic pain G89.29 [facility] [address] [place] [id number] Feb, Asymptomatic human immunodef iciency virus (HIV) infection status Z21 and Other chronic pain G89.[address] [facility] [address] [place] [address] Jan, Other chronic pain G89.[address] [facility] [address] [place] [address] Jan, Other chronic pain G89.[address] [facility] [address] [place] [address] Jan, Asymptomatic human immunodeficiency viru s (HIV) infection status Z21 [facility] [address] [place] [address] Jan, Other chronic pain G89.[address] [facility] [address] [place] [address] Jan, [facility] [address] [place] [address] Dec, Other chronic pain G89.[address] [facility] [address] [place] [address] Dec, Other chronic pain G89.29 [facility] [address] [id number] Nov, Asymptomatic human immunodef iciency virus (HIV) infection status Z21 ; Influenza vaccine needed Z23 and Other chronic pain G89.[address] [facility] [address] [place] [address] Nov, Other chronic pain G89.[address] [facility] [address] [place] [address] Oct, [facility] [address] [place] [address] Oct, Other chronic pain G89.[address] [facility] [address] [place] [address] Oct, [facility] [address] [id number] Sep, Asymptomatic human immunodef iciency virus (HIV) infection status Z21 ; Other chronic pain G89.29 and Generalized anxiety disorder F41.1 [facility] [address] [place] [address] Jun, [facility] [address] [place] [address] Jun, [facility] [address] [place] [address] Jun, [facility] [address] [place] [id number] Jun, Asymptomatic human immunodef iciency virus (HIV) infection status Z21 ; Need for pneumococcal vaccine Z23 ; Major depressive disorder, recurrent, moderate F33.1 ; Loss of appetite R63.0 ; Other chronic pain G89.29 ; Other and unspecified noninfectious gastroenteritis and colitis K52.9 and Nausea R11.0 [facility] [address] [place] [address] Jun, [facility] [address] [place] [address] Jun, Acute right ankle pain M25.571 [facility] [address] [address] May, [facility] [address] [place] [address] May, Acute right ankle pain M25.571 [facility] [address] [place] [address] Apr, [facility] [address] [place] [address] Apr, [facility] [address] [place] [address] Mar, Acute right ankle pain M25.571 [facility] [address] [place] [address] Mar, [facility] [address] [place] [address] Mar, [facility] [address] [facility] [place] [facility] [address] Mar, [facility] [address] [facility] [place] [facility] [address] Mar, [facility] [address] [facility] [place] [facility] [address] Mar, [facility] [address] [facility] [place] [address] Mar, Nausea and vomiting, intractability of v omiting not specified, unspecified vomiting type R11.2 [facility] [address] [facility] [place] [address] Mar, [facility] [address] [facility] [place] [facility] [address] Mar, Loss of appetite R63.0 [facility] [address] [facility] [place] [address] Mar, [facility] [address] [facility] [place] [facility] [address] Mar, [facility] [address] [facility] [place] [facility] [address] Mar, [facility] [address] [place] [address] Feb, Abscess L02.91 [facility] [address] [place] [address] Feb, Acute right ankle pain M25.571 [facility] [address] [facility] [place] [facility] [address] Feb, [facility] [address] [facility] [place] [address] Feb, [facility] [address] [facility] [place] [address] Feb, [facility] [address] [facility] [place] [address] Feb, Acute right ankle pain M25.571 [facility] [address] [facility] [place] [address] Feb, Abscess L02.91 [facility] [address] [facility] [place] [id number] Jan, Asymptomatic human immunodef iciency virus (HIV) infection status Z21 ; Influenza vaccine needed Z23 and Acute right ankle pain M25.571 [facility] [address] [place] [address] Jan, Abscess L02.91 [facility] [address] [place] [address] Nov, [facility] [address] [place] [address] Nov, Abscess L02.91 [facility] [address] [place] [address] Nov, Anxiety F41.9 [facility] [address] [place] [address] Nov, Acute right ankle pain M25.571 [facility] [address] [place] [address] 15 Nov, 2016 [facility] [address] [place] [address] Nov, [facility] [address] [place] [address] Nov, Hiccups R06.6 [facility] [address] [place] [address] 13 Nov, 2016 [facility] [address] [place] [address] Nov, [facility] [address] [place] [address] Nov, [facility] [address] [place] [address] Nov, [facility] [address] [place] [address] Nov, [facility] [address] [place] [address] Nov, [facility] [address] [place] [address] Oct, [facility] [address] [facility] [place] [address] Oct, [facility] [address] [place] [address] Oct, [facility] [address] [facility] [place] [address] Oct, Abscess L02.91 [facility] [address] [place] [address] Oct, [facility] [address] [facility] [place] [address] Oct, [facility] [address] [facility] [place] [address] Oct, [facility] [address] [place] [address] Oct, Abscess L02.91 and Acute right ankle ta n M25.571 [facility] [address] [place] [address] Oct, [facility] [address] [place] [address] Oct, [facility] [address] [facility] [place] [address] Oct, Abscess L02.[address] [facility] [address] [place] [address] Oct, [facility] [address] [place] [address] Oct, [facility] [address] [place] [phone] Oct, Asymptomatic human immunodef iciency virus (HIV) infection status Z21 ; long-term current use of opiate analgesic Z79.891 ; Nicotine dependence, cigarettes, uncomplicated F17.210 ; Iron deficiency anemia due to chronic blood loss D50.0 ; GERD with esophagitis K21.0 ; Major depressive disorder, recurrent, moderate F33.1 and Generalized anxiety disorder F41.[address] [facility] [address] [place] [address] Sep, Major depressive disorder, recurrent, mo derate F33.[address] [facility] [address] [place] [address] Sep, [facility] [address] [facility] [place] [address] Sep, [facility] [address] [facility] [place] [address] Sep, [facility] [address] [facility] [place] [address] Sep, [facility] [address] [place] [address] Sep, [facility] [address] [place] [address] Aug, [facility] [address] [place] [address] Aug, [facility] [address] [place] [address] Aug, [facility] [address] [place] [address] Aug, Loss of appetite R63.0 ; Major depressiv e disorder, recurrent, moderate F33.1 and Functional diarrhea K59.[address] [facility] [address] [place] [address] Aug, Acute hemorrhoid K64.9 and Other osteoar thritis involving multiple joints M15.[address] [facility] [address] [place] [address] Aug, Abscess L02.[address] [facility] [address] [place] [address] July, Chronic diarrhea K52.[address] [facility] [address] [place] [address] July, [facility] [address] [place] [id number] July, Asymptomatic human immunodef iciency virus (HIV) infection status Z21 ; Nicotine dependence, cigarettes, uncomplicated F17.210 ; Chronic diarrhea K52.9 ; Abscess L02.91 ; GERD with esophagitis K21.0 ; Anxiety F41.9 and 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 [facility] [address] [place] [address] Jun, Pain in joint involving multiple sites M 25.[address] [address] Jun, [address] [address] Jun, Pain in joint involving multiple sites M 25.[address] [address] Jun, Pain in joint involving multiple sites M 25.50 ; GERD with esophagitis K21.0 and Intractable hiccups R06.[address] [address] May, Pain in joint involving multiple sites M 25.[address] [address] Apr, Pain in joint involving multiple sites M 25.50 and Anxiety F41.[address] [address] Apr, [address] [address] Apr, Chronic diarrhea K52.9 and Pain in joint involving multiple sites M25.50 [facility] [address] [place] [id number] Apr, Asymptomatic human immunodef iciency virus (HIV) infection status Z21 ; Mild intermittent asthma without complication J45.20 ; Iron deficiency anemia due to chronic blood loss D50.0 ; Screening, lipid Z13.220 ; Chronic diarrhea K52.9 ; Abscess L02.91 and Projectile vomiting with nausea R11.[address] [address] Feb, Acute hemorrhoid K64.[address] [address] Jan, [address] [address] Jan, Nausea and vomiting, intractability of v omiting not specified, unspecified vomiting type R11.2 and Acute right ankle pain M25.[address] [facility] [address] [place] [address] Jan, [facility] [address] [place] [address] Jan, Asymptomatic human immunodeficiency viru s (HIV) infection status Z21 ; Iron deficiency anemia due to chronic blood loss D50.0 and Generalized abdominal pain R10.84 [facility] [address] [facility] [place] [id number] Dec, Asymptomatic human immunodef iciency virus (HIV) infection status Z21 ; Mild intermittent asthma without complication J45.20 ; Influenza vaccine needed Z23 and Nicotine dependence, cigarettes, uncomplicated F17.210 [facility] [address] [id number] 2 9 Oct, 2013 [facility] [address] [place] [id number] 2 8 Oct, [address] [facility] [address] [place] [address] 08 May, [address] [facility] [address] [place] [address] 14 Feb, [address] [facility] [address] [place] [address] 14 Nov, [address] [facility] [address] [place] [address] Aug, [facility] [address] [place] [address] Apr, [facility] [address] [facility] [address] [place] [id number] 1 8 Jan, 2011 IMMUNIZATIONS No Known [...]
--- OUTSIDE RECORDS SUMMARY | 2019-07-04 12:04 | XMS REPORT ---
Author Author Sergio ALVAREZ [facility] Address [address] [place] [address] Care Team Providers Care Manufacturing Controller Name Role Phone LINDSEY ALVAREZ Unavailable PROBLEMS Type Condition ICD9-CM Code JSK83-FM Code Onset Dates Condition S tatus SNOMED Code Problem Asymptomatic human immunodeficiency virus (HIV) infect ion status V08 Active 67910662 Problem HIV (human immunodeficiency virus infection) Z21 Active 47110243 Problem Anemia due to chronic blood loss D50.0 Active 215226252 Problem Need for prophylactic vaccination and inoculation, Influen za V04.81 Active 574653920 Problem PPV23 (PNEUMOVAX) DX V03.82 Active 40902683 Problem Bipolar disorder, unspecified 296.80 Active 71476153 Problem Mild intermittent asthma without complication J45. 20 Active 434431399 ALLERGIES No Information ENCOUNTERS Encounter Location Date Diagnosis [facility] [address] [facility] [id number] [address] [place] [address] Jun, [facility] IN [facility] [address] [id number] [address] May, Melena K92.1 [facility] IN [facility] [address] [id number] [place] [address] May, Melena K92.1 [facility] [address] [facility] [id number] [address] [place] [address] Apr, [facility] WALK IN [facility] [address] [facility] [id number] [address] [place] [address] Mar, [facility] [address] [facility] [id number] [address] [place] [address] Feb, [facility] [address] [facility] [id number] [address] [place] [address] Nov, [facility] [address] [id number] [address] [place] [address] Sep, [facility] [address] [id number] [address] [place] [address] Jun, [facility] [address] [id number] [address] [place] [address] Jan, [facility] [address] [id number] [address] [place] [address] Nov, [facility] [id number] [place] [id number] Oct, [facility] [address] [id number] [address] [place] [address] July, [facility] [address] [facility] [id number] [address] [place] [phone] 13 Apr, 2016 Cough R05 [facility] [address] [id number] [address] [place] [address] Apr, [facility] [address] [id number] [address] [place] [address] Jan, Human immunodeficiency virus (HIV) disease B20 and Anemia due to chronic blood loss D50.0 [facility] [address] [id number] [address] [place] [address] Jan, [facility] [address] [facility] [id number] [address] [place] [address] Dec, [facility] [address] [id number] [address] [place] [address] Dec, Mild intermittent asthma wit hout complication J45.20 [facility] [address] [id number] [address] [place] [address] Dec, [facility] [address] [facility] [id number] [address] [place] [address] Dec, 2016 HIV (human immunodeficiency virus infection) Z21 and Mild intermittent asthma without complication J45.20 [facility] [address] [facility] [id number] [address] [place] [phone] 26 Nov, 2015 Cough R05 ; Fatigue, unspeci fied type R53.83 ; Diarrhea, unspecified type R19.7 ; HIV (human immunodeficiency virus infection) Z21 and Hemoptysis R04.2 [facility] [address] [facility] [id number] [address] [place] [address] Jun, [facility] [address] [facility] [id number] [address] [place] [address] Jun, [facility] [address] [facility] [id number] [address] [place] [address] May, [facility] [address] [facility] [id number] [address] [place] [address] May, [facility] [id number] [place] [id number] May, [facility] [address] [facility] [id number] [address] [place] [address] May, [facility] [address] [facility] [id number] [address] [place] [address] May, [facility] [address] [facility] [id number] [address] [place] [address] May, [facility] [address] [facility] [id number] [address] [place] [address] Mar, [facility] [address] [facility] [id number] [address] [place] [address] Mar, [facility] [address] [place] [id number] [address] [place] [address] Jan, [facility] [address] [facility] [id number] [address] [place] [phone] Jan, [facility] [address] [facility] [id number] [address] [place] [address] Jan, [facility] [address] [facility] [id number] [address] [place] [address] Jan, [facility] [address] [facility] [id number] [address] [place] [address] Jan, [facility] [address] [facility] [id number] [address] [place] [phone] Jan, [facility] [address] [id number] [address] [place] [phone] Dec, [facility] [address] [facility] [id number] [place] [id number] Dec, [facility] [address] [facility] [id number] [address] [place] [address] Dec, [facility] [address] [facility] [id number] [address] [place] [phone] Dec, [facility] [address] [facility] [id number] [address] [place] [address] Dec, [facility] [id number] [place] [id number] Oct, [facility] [address] [facility] [id number] [address] [place] [phone] Oct, [facility] [address] [facility] [id number] [address] [place] [phone] Aug, [facility] [address] [facility] [id number] [address] [place] [phone] Aug, [facility] [address] [facility] [id number] [place] [id number] Aug, IMMUNIZATIONS No Known Immunizations SOCIAL HISTORY Never Assessed REASON FOR VISIT PLAN OF CARE VITAL SIGNS MEDICATIONS Unknown Medications RESULTS No Results PROCEDURES No Known procedures INSTRUCTIONS MEDICATIONS ADMINISTERED No Known Medications MEDICAL (GENERAL) HISTORY Type Description Date Medical History Bipolar disorder, unspecified Medical History Asymptomatic human immunodef iciency virus (HIV) infection status
--- OUTSIDE RECORDS SUMMARY | 2019-07-04 12:04 | XMS REPORT ---
Author Author Sergio Li Organization [facility] Address [address] [place], [place] [id number] Care Team Providers Care Glove Machine Operator Name Role Phone Shana Li Unavailable PROBLEMS Type Condition ICD9-CM Code LHE70-DV Code Onset Dates Condition S tatus SNOMED Code Problem Mild intermittent asthma without complication J45. 20 Active 441803566 Problem Iron deficiency anemia due to chronic blood loss D 50.0 Active 04051886 Problem Other osteoarthritis involving multiple joints M15 .8 Active 174721767 Problem Asymptomatic human immunodeficiency virus (HIV) infect ion status Z21 Active 14642086 Problem Other and unspecified noninfectious gastroenteritis an d colitis K52.9 Active 50743246 Problem Nicotine dependence, cigarettes, uncomplicated F17 .210 Active 09961770 Problem Other chronic pain G89.29 Active 8 2581620 Problem Generalized anxiety disorder F41.1 A ctive 78431317 Problem GERD with esophagitis K21.0 Active 332794183 Problem Functional diarrhea K59.1 Active 50338109 Problem Major depressive disorder, recurrent, moderate F33 .1 Active 414482247 Problem Loss of appetite R63.0 Active 798 69945 ALLERGIES No Information ENCOUNTERS Encounter Location Date Diagnosis [address] [address] May, [address] [address] May, [address] [address] Apr, [address] [address] Apr, [address] [address] Apr, [address] [address] Apr, [facility] [address] [facility] [place] [address] Apr, [facility] [address] [facility] [place] [address] Apr, [facility] [address] [facility] [place] [address] Apr, [facility] [address] [facility] [place] [address] Apr, [facility] [address] [facility] [place] [address] Apr, [facility] [address] [facility] [place] [address] Apr, Other chronic pain G89.29 [facility] [address] [facility] [place] [address] Apr, [facility] [address] [place], [place] [id number] Apr, Asymptomatic human immunodef iciency virus (HIV) infection status Z21 ; Other chronic pain G89.29 and Screening for cardiovascular condition Z13.6 [facility] [address] [place] [address] Apr, [facility] [address] [place] [address] Apr, [facility] [address] [place] [address] Apr, [facility] [address] [facility] [place] [address] Apr, Other chronic pain G89.29 [facility] [address] [facility] [place] [address] Mar, Loss of appetite R63.0 [facility] [address] [facility] [place] [address] Mar, [facility] [address] [place] [address] Mar, [facility] [address] [facility] [place] [address] Mar, [facility] [address] [facility] [place] [address] Mar, [facility] [address] [facility] [place] [address] Mar, Other chronic pain G89.29 [facility] [address] [facility] [place] [address] Mar, [facility] [address] [facility] [place] [address] Mar, [facility] [address] [facility] [place] [address] Mar, [facility] [address] [facility] [place] [address] Mar, Other chronic pain G89.29 [facility] [address] [facility] [id number] Mar, [facility] [address] [facility] [id number] Mar, Asymptomatic human immunodeficiency viru s (HIV) infection status Z21 [facility] [address] [facility] [place] [address] Mar, Other chronic pain G89.29 [facility] [address] [place] [address] Mar, [facility] [address] [place] [address] Mar, [facility] [address] [place] [address] Feb, Other chronic pain G89.29 [facility] [address] [place] [address] Feb, Other chronic pain G89.29 [facility] [address] [facility] [id number] Feb, Other chronic pain G89.29 [facility] [address] [facility] [place] [id number] Feb, Asymptomatic human immunodef iciency virus (HIV) infection status Z21 and Other chronic pain G89.29 [facility] [address] [facility] [place] [address] Jan, Other chronic pain G89.29 [facility] [address] [place] [address] Jan, Other chronic pain G89.29 [facility] [address] [place] [address] Jan, Asymptomatic human immunodeficiency viru s (HIV) infection status Z21 [facility] [address] [place] [address] Jan, Other chronic pain G89.29 [facility] [address] [place] [address] Jan, [facility] [address] [place] [address] Dec, Other chronic pain G89.29 [facility] [address] [place] [address] Dec, Other chronic pain G89.29 [facility] [address] [id number] Nov, Asymptomatic human immunodef iciency virus (HIV) infection status Z21 ; Influenza vaccine needed Z23 and Other chronic pain G89.29 [facility] [address] [place] [address] Nov, Other chronic pain G89.29 [facility] [address] [place] [address] Oct, [facility] [address] [place] [address] Oct, Other chronic pain G89.29 [facility] [address] [place] [address] Oct, [facility] [address] [id number] Sep, Asymptomatic human immunodef iciency virus (HIV) infection status Z21 ; Other chronic pain G89.29 and Generalized anxiety disorder F41.1 [facility] [address] [place] [address] Jun, [facility] [address] [place] [address] Jun, [facility] [address] [place] [address] Jun, [facility] [address] [facility] [place] [place] [phone] Jun, Asymptomatic human immunodef iciency virus (HIV) infection status Z21 ; Need for pneumococcal vaccine Z23 ; Major depressive disorder, recurrent, moderate F33.1 ; Loss of appetite R63.0 ; Other chronic pain G89.29 ; Other and unspecified noninfectious gastroenteritis and colitis K52.9 and Nausea R11.0 [facility] [address] [place] [address], [place] [address] Jun, [facility] [address] [place] [address], [place] [address] Jun, Acute right ankle pain M25.571 [facility] [address] [place] [address], [place] [address] May, [facility] [address] [place] [address], [place] [address] May, Acute right ankle pain M25.571 [facility] [address] [place] [address], [place] [address] Apr, [facility] [address] [place] [address], [place] [address] Apr, [facility] [address] [place] [address], [place] [address] Mar, Acute right ankle pain M25.571 [facility] [address] [place] [address], [place] [address] Mar, [facility] [address] [place] [address], [place] [address] Mar, [facility] [address] [place] [address], [place] [address] Mar, [facility] [address] [place] [address], [place] [address] Mar, [facility] [address] [place] [address], [place] [address] Mar, [facility] [address] [place] [address], [place] [address] Mar, Nausea and vomiting, intractability of v omiting not specified, unspecified vomiting type R11.2 [facility] [address] [place] [address] Mar, [facility] [address] [place] [address] Mar, Loss of appetite R63.0 [facility] [address] [place] [address] Mar, [facility] [address] [place] [address] Mar, [facility] [address] [place] [address] Mar, [facility] [address] [place] [address] Feb, Abscess L02.[address] [address] Feb, Acute right ankle pain M25.[address] [address] Feb, [facility] [address] [place] [address] Feb, [address] [address] Feb, [address] [address] Feb, Acute right ankle pain M25.[address] [address] Feb, Abscess L02.91 [facility] [address] [place] [id number] Jan, Asymptomatic human immunodef iciency virus (HIV) infection status Z21 ; Influenza vaccine needed Z23 and Acute right ankle pain M25.571 [facility] [address] [place] [address] Jan, Abscess L02.[address] [address] Nov, [facility] [address] [facility] [place] [address] Nov, Abscess L02.91 [facility] [address] [facility] [place] [address] Nov, Anxiety F41.9 [facility] [address] [facility] [place] [address] 25 Nov, 2016 Acute right ankle pain M25.571 [facility] [address] [facility] [place] [address] 15 Nov, 2016 [facility] [address] [facility] [place] [address] 14 Nov, 2016 [facility] [address] [facility] [place] [address] 14 Nov, 2016 Hiccups R06.6 [facility] [address] [facility] [place] [address] 13 Nov, 2016 [facility] [address] [facility] [place] [address] 08 Nov, 2016 [facility] [address] [facility] [place] [address] 08 Nov, 2016 [facility] [address] [facility] [place] [address] Nov, [facility] [address] [facility] [place] [address] 06 Nov, 2016 [facility] [address] [facility] [place] [address] Nov, [facility] [address] [facility] [place] [address] Oct, [facility] [address] [facility] [place] [address] Oct, [facility] [address] [facility] [place] [address] Oct, [facility] [address] [facility] [place] [address] Oct, Abscess L02.91 [facility] [address] [facility] [place] [address] Oct, [facility] [address] [place] [address] Oct, [facility] [address] [place] [address] Oct, [facility] [address] [place] [address] Oct, Abscess L02.91 and Acute right ankle ta n M25.571 [facility] [address] [place] [address] Oct, [facility] [address] [place] [address] Oct, [facility] [address] [place] [address] Oct, Abscess L02.91 [facility] [address] [place] [address] Oct, [facility] [address] [place] [address] Oct, [address] [id number] Oct, Asymptomatic human immunodef iciency virus (HIV) infection status Z21 ; 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 ; Nicotine dependence, cigarettes, uncomplicated F17.210 ; Iron deficiency anemia due to chronic blood loss D50.0 ; GERD with esophagitis K21.0 ; Major depressive disorder, recurrent, moderate F33.1 and Generalized anxiety disorder F41.1 [facility] [address] [place] [address] Sep, Major depressive disorder, recurrent, mo derate F33.1 [facility] [address] [place] [address] Sep, [facility] [address] [place] [address] Sep, [facility] [address] [place] [address] Sep, [facility] [address] [place] [address] Sep, [facility] [address] [place] [address] Sep, [facility] [address] [place] [address] Aug, [facility] [address] [place] [address] Aug, [facility] [address] [place] [address] Aug, [facility] [address] [place] [address] Aug, Loss of appetite R63.0 ; Major depressiv e disorder, recurrent, moderate F33.1 and Functional diarrhea K59.1 [facility] [address] [place] [address] Aug, Acute hemorrhoid K64.9 and Other osteoar thritis involving multiple joints M15.8 [facility] [address] [place] [address] Aug, Abscess L02.[address] [address] July, Chronic diarrhea K52.9 [facility] [address] [place] [address] July, [facility] [address] [place] [id number] July, Asymptomatic human immunodef iciency virus (HIV) infection status Z21 ; Nicotine dependence, cigarettes, uncomplicated F17.210 ; Chronic diarrhea K52.9 ; Abscess L02.91 ; GERD with esophagitis K21.0 ; Anxiety F41.9 and 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 [facility] [address] [place] [address] Jun, Pain in joint involving multiple sites M 25.[address] [address] Jun, [facility] [address] [place] [address] Jun, Pain in joint involving multiple sites M 25.50 [facility] [address] [place] [address] Jun, Pain in joint involving multiple sites M 25.50 ; GERD with esophagitis K21.0 and Intractable hiccups R06.[address] [address] May, Pain in joint involving multiple sites M 25.[address] [address] 28 Apr, 2016 Pain in joint involving multiple sites M 25.50 and Anxiety F41.[address] [address] 17 Apr, [address] [address] Apr, Chronic diarrhea K52.9 and Pain in joint involving multiple sites M25.50 [facility] [address] [id number] Apr, Asymptomatic human immunodef iciency virus (HIV) infection status Z21 ; Mild intermittent asthma without complication J45.20 ; Iron deficiency anemia due to chronic blood loss D50.0 ; Screening, lipid Z13.220 ; Chronic diarrhea K52.9 ; Abscess L02.91 and Projectile vomiting with nausea R11.[address] [address] Feb, Acute hemorrhoid K64.[address] [address] Jan, [address] [address] Jan, Nausea and vomiting, intractability of v omiting not specified, unspecified vomiting type R11.2 and Acute right ankle pain M25.[address] [address] Jan, [address] [address] Jan, Asymptomatic human immunodeficiency viru s (HIV) infection status Z21 ; Iron deficiency anemia due to chronic blood loss D50.0 and Generalized abdominal pain R10.[address] [id number] Dec, Asymptomatic human immunodef iciency virus (HIV) infection status Z21 ; Mild intermittent asthma without complication J45.20 ; Influenza vaccine needed Z23 and Nicotine dependence, cigarettes, uncomplicated F17.210 [facility] [address] [place] [id number] 2 9 Oct, 2013 [facility] [address] [place] [id number] 2 8 Oct, 2013 [facility] [address] [place] [address] 08 May, 2012 [facility] [address] [place] [address] Feb, [facility] [address] [place] [address] 14 Nov, 2011 [facility] [address] [place] [address] Aug, [facility] [address] [place] [address] Apr, [facility] [address] [id number] 1 8 Jan, 2011 IMMUNIZATIONS No Known Immunizations SOCIAL HISTORY Never Assessed REASON FOR VISIT my body aches PLAN OF CARE VITAL SIGNS MEDICATIONS Unknown Medications RESULTS No Results PROCEDURES No Known procedures INSTRUCTIONS MEDICATIONS ADMINISTERED No Known Medications MEDICAL (GENERAL) HISTORY Type Description Date Medical History HIV Medical History Colitis Medical History chronic pain Medical History depression Surgical History No know Surgical history
--- OUTSIDE RECORDS SUMMARY | 2019-07-04 12:05 | XMS REPORT ---
Author Author Sergio ALVAREZ [facility] Address [address] [place] [address] Care Team Providers Care Bank Secrecy Act Officer Name Role Phone LINDSEY ALVAREZ Unavailable PROBLEMS Type Condition ICD9-CM Code BPX60-EG Code Onset Dates Condition S tatus SNOMED Code Problem Asymptomatic human immunodeficiency virus (HIV) infect ion status V08 Active 24534555 Problem HIV (human immunodeficiency virus infection) Z21 Active 06656091 Problem Anemia due to chronic blood loss D50.0 Active 771272848 Problem Need for prophylactic vaccination and inoculation, Influen za V04.81 Active 411749221 Problem PPV23 (PNEUMOVAX) DX V03.82 Active 00896933 Problem Bipolar disorder, unspecified 296.80 Active 37359051 Problem Mild intermittent asthma without complication J45. 20 Active 863881289 ALLERGIES No Information ENCOUNTERS Encounter Location Date Diagnosis [facility] [address] [id number] [place] [address] Jun, [facility] [address] [facility] [address] [place] [address] May, [facility] K92.1 [facility] [address] [place] [address] May, Melena K92.1 [facility] [address] [facility] [id number] [place] [address] Apr, [facility] [address] [facility] [id number] 100[address] [place] [address] Mar, [facility] [address] [id number] [place] [address] Feb, [facility] [address] [id number] [place] [address] Nov, [facility] [id number] [place] [address] Sep, [facility] [id number] [place] [address] Jun, [facility] [id number] [place] [address] Jan, [facility] [id number] [place] [address] Nov, [facility] [address] [id number] [place] [id number] Oct, [facility] [id number] [place] [address] July, [facility] [id number] [place] [address] 13 Apr, 2016 Cough R05 [facility] [address] [address] 10 Apr, 2016 [facility] [id number] [place] [address] 30 Jan, 2016 Human immunodeficiency virus (HIV) disea se B20 and Anemia due to chronic blood loss D50.0 [facility] [id number] [place] [address] Jan, [facility] [id number] [place] [address] Dec, [facility] [id number] [place] [address] Dec, Mild intermittent asthma without complic ation J45.20 [facility] [id number] [place] [address] 17 Dec, 2015 [facility] [address] [address] 07 Dec, 2015 HIV (human immunodeficiency virus infect ion) Z21 and Mild intermittent asthma without complication J45.20 [facility] [id number] [place] [address] Nov, Cough R05 ; Fatigue, unspecified type R5 3.83 ; Diarrhea, unspecified type R19.7 ; HIV (human immunodeficiency virus infection) Z21 and Hemoptysis R04.2 [facility] [id number] [place] [address] 14 Jun, 2014 [facility] [id number] [place] [address] Jun, [facility] [address] [address] May, [facility] [id number] [place] [address] May, Halima NOVA [address] [facility] [id number] [facility] [place] [id number] May, [facility] [id number] [place] [address] May, [facility] [id number] [place] [address] May, [facility] [id number] [place] [address] May, [facility] [id number] [place] [address] Mar, [facility] [id number] [place] [address] Mar, [facility] [id number] [place] [address] Jan, [facility] [id number] [place] [address] Jan, [facility] [address] [place] [address] Jan, [facility] [id number] [place] [address] Jan, [facility] [address] [place] [address] Jan, [facility] [address] [id number] [place] [address] Jan, [facility] [id number] [place] [address] Dec, [facility] [place] [address] [facility] [id number] DE[place]atius[place] [id number] Dec, [facility] [id number] [place] [address] Dec, [facility] [id number] [place] [address] Dec, [facility] [id number] [place] [address] Dec, [facility] [place] [address] [facility] [id number] [place] [id number] Oct, [facility] [id number] [place] [address] Oct, [facility] [id number] [place] [address] Aug, [facility] [id number] [place] [address] Aug, [facility] [address] [facility] [id number] [place]MANDA [place] [id number] Aug, IMMUNIZATIONS No Known Immunizations SOCIAL HISTORY Never Assessed REASON FOR VISIT PLAN OF CARE VITAL SIGNS MEDICATIONS Unknown Medications RESULTS No Results PROCEDURES No Known procedures INSTRUCTIONS MEDICATIONS ADMINISTERED No Known Medications MEDICAL (GENERAL) HISTORY Type Description Date Medical History Bipolar disorder, unspecified Medical History Asymptomatic human immunodef iciency virus (HIV) infection status
--- OUTSIDE RECORDS SUMMARY | 2019-07-04 12:05 | XMS REPORT ---
Author Author Sergio Delarosa Doctor Organization [facility] Address Unknown Phone Unavailable Care Team Providers Care Repair Supervisor Name Role Phone Migration, Doctor Unavailable Unavailable PROBLEMS Type Condition ICD9-CM Code XGC17-YL Code Onset Dates Condition S tatus SNOMED Code Problem Asymptomatic human immunodeficiency virus (HIV) infect ion status V08 Active 00248182 Problem HIV (human immunodeficiency virus infection) Z21 Active 65093585 Problem Anemia due to chronic blood loss D50.0 Active 412538627 Problem Need for prophylactic vaccination and inoculation, Influen za V04.81 Active 190588983 Problem PPV23 (PNEUMOVAX) DX V03.82 Active 67419606 Problem Bipolar disorder, unspecified 296.80 Active 73905034 Problem Mild intermittent asthma without complication J45. 20 Active 803788740 ALLERGIES No Information ENCOUNTERS Encounter Location Date Diagnosis [facility] [address] [facility] [place] [address] May, [facility] K92[facility]1 [facility] [address] [facility] [place] [address] May, Melena K92.1 [facility] [place] [address] [facility] [id number] [address] [place] [address] Apr, [facility] [address] [facility] [id number] [address] [place] [address] Mar, [facility] [place] [address] [facility] [id number] [address] [place] [address] Feb, [facility] [place] [address] [facility] [id number] [address] [place] [address] Nov, [facility] [place] [address] [facility] [id number] [address] [place] [address] Sep, [facility] [place] [address] [facility] [id number] [address] [place] [address] Jun, [facility] [place] [address] [id number] [address] [place] [address] Jan, [facility] [place] [address] [facility] [id number] [address] [place] [address] Nov, [facility] [id number] [place] [id number] Oct, [facility] [place] [address] [id number] [address] [place] [address] July, [facility] [place] [address] [id number] [address] [place] [address] Apr, Cough R05 [facility] [place] [address] [facility] [id number] [address] [place] [address] Apr, [facility] [place] [address] [facility] [id number] [address] [place] [address] Jan, Human immunodeficiency virus (HIV) disease B20 and Anemia due to chronic blood loss D50.0 [facility] [place] [address] [facility] [id number] [address] [place] [phone] Jan, [facility] [place] [address] [facility] [id number] [address] [place] [address] Dec, [facility] [place] [address] [facility] [id number] [address] [place] [address] Dec, Mild intermittent asthma wit hout complication J45.20 [facility] [place] [address] [facility] [id number] [address] [place] [address] Dec, [facility] [place] [address] [facility] [id number] [address] [place] [address] Dec, HIV (human immunodeficiency virus infection) Z21 and Mild intermittent asthma without complication J45.20 [facility] [place] [address] [facility] [id number] [address] [place] [address] Nov, Cough R05 ; Fatigue, unspeci fied type R53.83 ; Diarrhea, unspecified type R19.7 ; HIV (human immunodeficiency virus infection) Z21 and Hemoptysis R04.2 [facility] [address] [id number] [address] [place] [address], [place] [address] 14 Jun, 2014 [facility] [address] [id number] [address] [place] [address], [place] [address] 13 Jun, 2014 [facility] [address] [id number] [address] [place] [address], [place] [address] May, [facility] [address] [id number] [address] [place] [address], [place] [address] May, Halima ROHINI [address] [facility] [id number] [place] [id number] May, [facility] [place] [address] [facility] [id number] [address] [place] [address], [place] [address] May, [facility] [place] [address] [id number] [address] [place] [address], [place] [address] May, [facility] [address] [id number] [address] [place] [address], [place] [address] May, [facility] [place] [address] [id number] [address] [place] [address], [place] [address] Mar, [facility] [place] [address] [facility] [id number] [address] [place] [address] Mar, [facility] [address] [id number] [address] [place] [address] Jan, [facility] [address] [id number] [address] [place] [address] Jan, [facility] [address] [id number] [address] [place] [address], [place] [address] Jan, [facility] [address] [id number] [address] [place] [address] Jan, [facility] [address] [id number] [address] [place] [address] Jan, [facility] [place] [address] [facility] [id number] [address] [place] [address] Jan, [facility] [place] [address] [facility] [id number] [address] [place] [address] Dec, [place] [id number] [id number] Dec, [facility] [place] [address] [facility] [id number] [address] [place] [address] Dec, [facility] [place] [address] [facility] [id number] [address] [place] [phone] Dec, [facility] [place] [address] [facility] [id number] [address] [place] [address] Dec, [facility] [id number] [place] [id number] Oct, [facility] [place] [address] [facility] [id number] [address] [place] [address] Oct, [facility] [place] [address] [facility] [id number] [address] [place] [address] Aug, [facility] [place] [address] [facility] [id number] [address] [place] [address] Aug, [address] [id number] [id number] Aug, IMMUNIZATIONS No Known Immunizations SOCIAL HISTORY Never Assessed REASON FOR VISIT EMR-[facility] PLAN OF CARE VITAL SIGNS MEDICATIONS Unknown Medications RESULTS No Results PROCEDURES No Known procedures INSTRUCTIONS MEDICATIONS ADMINISTERED No Known Medications MEDICAL (GENERAL) HISTORY Type Description Date Medical History Bipolar disorder, unspecified Medical History Asymptomatic human immunodef iciency virus (HIV) infection status
--- OUTSIDE RECORDS SUMMARY | 2019-07-04 12:05 | XMS REPORT ---
Author Author Sergio ALVAREZ [facility] Address [address] [place] [address] Care Team Providers Care Nurse Midwife Name Role Phone LINDSEY ALVAREZ Unavailable PROBLEMS Type Condition ICD9-CM Code PNE05-ZV Code Onset Dates Condition S tatus SNOMED Code Problem Asymptomatic human immunodeficiency virus (HIV) infect ion status V08 Active 28310890 Problem HIV (human immunodeficiency virus infection) Z21 Active 07561004 Problem Anemia due to chronic blood loss D50.0 Active 651013013 Problem Need for prophylactic vaccination and inoculation, Influen za V04.81 Active 916027706 Problem PPV23 (PNEUMOVAX) DX V03.82 Active 48046196 Problem Bipolar disorder, unspecified 296.80 Active 60813641 Problem Mild intermittent asthma without complication J45. 20 Active 598023538 ALLERGIES No Information ENCOUNTERS Encounter Location Date Diagnosis [facility] [address] [facility] [place] [address] Jun, [facility] [address] [address] [place] [address] May, [facility] K92.1 [facility] [address] [place] [address] May, Melena K92.1 [facility] [address] [facility] [id number] [place] [address] Apr, [facility] [address] [facility] [id number] [address] [place] [address] Mar, [facility] [address] [id number] [place] [address] Feb, [facility] [address] [id number] [place] [address] Nov, [facility] [id number] [place] [address] Sep, [facility] [id number] [place] [address] Jun, [facility] [id number] [place] [address] Jan, [facility] [id number] [place] [address] Nov, [facility] [address] [id number] [place] [id number] Oct, [facility] [id number] [place] [address] July, [facility] [id number] [place] [address] 13 Apr, 2016 Cough R05 [facility] [address] [address] 10 Apr, 2016 [facility] [id number] [place] [address] 30 Jan, 2016 Human immunodeficiency virus (HIV) disea se B20 and Anemia due to chronic blood loss D50.0 [facility] [id number] [place] [address] Jan, [facility] [id number] [place] [address] Dec, [facility] [id number] [place] [address] Dec, Mild intermittent asthma without complic ation J45.20 [facility] [id number] [place] [address] 17 Dec, 2015 [facility] [address] [address] 07 Dec, 2015 HIV (human immunodeficiency virus infect ion) Z21 and Mild intermittent asthma without complication J45.20 [facility] [id number] [place] [address] Nov, Cough R05 ; Fatigue, unspecified type R5 3.83 ; Diarrhea, unspecified type R19.7 ; HIV (human immunodeficiency virus infection) Z21 and Hemoptysis R04.2 [facility] [id number] [place] [address] 14 Jun, 2014 [facility] [id number] [place] [address] Jun, [facility] [address] [address] May, [facility] [id number] [place] [address] May, Halima NOVA [address] [facility] [id number] [facility] [id number] May, [facility] [id number] [place] [address] May, [facility] [id number] [place] [address] May, [facility] [id number] [place] [address] May, [facility] [id number] [place] [address] Mar, [facility] [id number] [place] [address] Mar, [facility] [id number] [place] [address] Jan, [facility] [id number] [place] [address] Jan, [facility] [id number] [place] [address] Jan, [facility] [id number] [place] [address] Jan, [facility] [id number] [place] [address] Jan, [facility] [address] [id number] [place] [address] Jan, [facility] [id number] [place] [address] Dec, [facility]ianJANE [facility] [address] [facility] [id number] [place] [id number] Dec, [facility] [id number] [place] [address] Dec, [facility] [id number] [place] [address] Dec, [facility] [id number] [place] [address] Dec, reginaJANE TODD [facility] [address] [facility] [id number] [place] [id number] Oct, [facility] [id number] [place] [address] Oct, [facility] [id number] [place] [address] Aug, [facility] [id number] [place] [address] Aug, [facility] [address] [facility] [id number] [place] [id number] Aug, IMMUNIZATIONS No Known Immunizations SOCIAL HISTORY Never Assessed REASON FOR VISIT PLAN OF CARE VITAL SIGNS Height 64 in 2013-05-21 Weight 122.3 lbs 2013-05-21 Temperature 98.1 degrees Fahrenheit 2013-05-21 Heart Rate 98 bpm 2013-05-21 Respiratory Rate 18 2013-05-21 Blood pressure systolic 102 mmHg 2013-05-21 Blood pressure diastolic 78 mmHg 2013-05-21 MEDICATIONS Unknown Medications RESULTS No Results PROCEDURES Procedure Date Ordered Result Body Site BL SMEAR W/DIFF WBC COUNT May 21, 2013 ASSAY THYROID STIM HORMONE May 21, 2013 COMPREHEN METABOLIC PANEL May 21, 2013 HIV-1, DNA, QUANT May 21, 2013 MANUAL CELL COUNT, EACH May 21, 2013 INSTRUCTIONS MEDICATIONS ADMINISTERED No Known Medications MEDICAL (GENERAL) HISTORY Type Description Date Medical History Bipolar disorder, unspecified Medical History Asymptomatic human immunodef iciency virus (HIV) infection status
--- OUTSIDE RECORDS SUMMARY | 2019-07-04 12:05 | XMS REPORT ---
Author Author Sergio HEIN Organization [facility] Address [address] [place] [address] Care Team Providers Care Optical Systems Engineer Name Role Phone MELVINA LUIS ANTONIO Unavailable PROBLEMS Type Condition ICD9-CM Code HAO79-QM Code Onset Dates Condition S tatus SNOMED Code Problem Asymptomatic human immunodeficiency virus (HIV) infect ion status V08 Active 22683903 Problem HIV (human immunodeficiency virus infection) Z21 Active 32853228 Problem Anemia due to chronic blood loss D50.0 Active 341964573 Problem Need for prophylactic vaccination and inoculation, Influen za V04.81 Active 339340709 Problem PPV23 (PNEUMOVAX) DX V03.82 Active 77748611 Problem Bipolar disorder, unspecified 296.80 Active 40813982 Problem Mild intermittent asthma without complication J45. 20 Active 498670232 ALLERGIES Substance Reaction Event Type Date Status Penicillin unknown Drug Allergy May, Active ENCOUNTERS Encounter Location Date Diagnosis [facility] [address] [facility] [id number] [address] [place] [phone] Jun, [facility] [address] [place] [address] May, Melena K92.1 [facility] [address] [place] [address] May, [address] [facility] [address] [facility] [id number] [address] [place] [phone] Apr, [facility] WALK IN [facility] [address] [facility] [id number] [address] [place] [phone] Mar, [facility] [address] [facility] [id number] [address] [place] [phone] Feb, [facility] [address] [id number] [address] [place] [phone] 28 Nov, 2017 [facility] [address] [id number] [address] [place] [phone] Sep, [facility] [address] [id number] [address] [place] [phone] Jun, [facility] [address] [id number] [address] [place] [phone] Jan, [facility] [address] [id number] [address] [place] [phone] 15 Nov, 2016 [facility] [id number] [place] [address], [place] [phone] Oct, [facility] [address] [id number] [address] [place] [phone] July, [facility] [address] [id number] [address] [place] [phone] 13 Apr, [address] [facility] [address] [facility] [id number] [address] [place] [phone] 10 Apr, 2016 [facility] [address] [facility] [id number] [address] [place] [phone] Jan, Human immunodeficiency virus (HIV) disease B20 and Anemia due to chronic blood loss D50.0 [facility] [address] [facility] [id number] [address] [place] [phone] Jan, [facility] [address] [facility] [id number] [address] [place] [phone] Dec, [facility] [address] [id number] [address] [place] [phone] Dec, Mild intermittent asthma wit hout complication J45.20 [facility] [address] [id number] [address] [place] [phone] 17 Dec, 2015 [facility] [address] [facility] [id number] [address] [place] [phone] Dec, HIV (human immunodeficiency virus infection) Z21 and Mild intermittent asthma without complication J45.20 [facility] [address] [facility] [id number] [address] [place] [phone] Nov, Cough R05 ; Fatigue, unspeci fied type R53.83 ; Diarrhea, unspecified type R19.7 ; HIV (human immunodeficiency virus infection) Z21 and Hemoptysis R04.2 [facility] [address] [facility] [id number] [address] [place] [phone] Jun, [facility] [address] [facility] [id number] [address] [place] [phone] Jun, [facility] [address] [facility] [id number] [address] [place] [phone] May, [facility] [address] [facility] [id number] [address] [place] [phone] May, [place] [id number] [facility] [id number] [place] [id number] May, [facility] [address] [facility] [id number] [address] [place] [phone] May, [facility] [address] [facility] [id number] [address] [place] [phone] May, [facility] [address] [facility] [id number] [address] [place] [phone] May, [facility] [address] [facility] [id number] [address] [place] [phone] Mar, [facility] [address] [facility] [id number] [address] [place] [phone] Mar, [facility] [address] [place] [id number] [address] [place] [phone] Jan, [facility] [address] [facility] [id number] [address] [place] [phone] Jan, [facility] [address] [place] [id number] [address] [place] [phone] Jan, [facility] [address] [id number] [address] [place] [phone] Jan, [facility] [address] [facility] [id number] [address] [place] [phone] Jan, [facility] [address] [facility] [id number] [address] [place] [phone] Jan, [facility] [address] [facility] [id number] [address] [place] [phone] Dec, [place] [address] [place] [id number] [place] [phone] Dec, [facility] [address] [facility] [id number] [address] [place] [phone] Dec, [facility] [address] [facility] [id number] [address] [place] [phone] Dec, [facility] [address] [id number] [address] [place] [phone] Dec, [place] [address] [place] [id number] [place] [id number] Oct, [facility] [address] [facility] [id number] [address] [place] [phone] Oct, [facility] [address] [facility] [id number] [address] [place] [phone] Aug, [facility] [address] [facility] [id number] [address] [place] [phone] Aug, [facility] [address] [place] [id number] [place] [phone] Aug, IMMUNIZATIONS No Known Immunizations SOCIAL HISTORY Never Assessed REASON FOR VISIT stool sample dropped off/ should be mailed by pt /..sent to [facility] .. PLAN OF CARE Activity Details Pending Test STOOL (FIT/FOBT) VITAL SIGNS MEDICATIONS Medication Instructions Dosage Frequency Start Date End Date Duration S aby Dronabinol 5 MG Orally Once a day 1 capsule in the evening at bedtime 24 h Unknown RESULTS No Results PROCEDURES Procedure Date Ordered Result Body Site ASSAY TEST FOR BLOOD, FECAL May 17, 2018 INSTRUCTIONS MEDICATIONS ADMINISTERED No Known Medications MEDICAL (GENERAL) HISTORY Type Description Date Medical History Bipolar disorder, unspecified Medical History Asymptomatic human immunodef iciency virus (HIV) infection status
--- OUTSIDE RECORDS SUMMARY | 2019-07-04 12:05 | XMS REPORT ---
Author Author Sergio Delarosa Doctor Organization [facility] Address Unknown Phone Unavailable Care Team Providers Care Weblogic Developer Name Role Phone Migration, Doctor Unavailable Unavailable PROBLEMS Type Condition ICD9-CM Code UXU83-AC Code Onset Dates Condition S tatus SNOMED Code Problem Asymptomatic human immunodeficiency virus (HIV) infect ion status V08 Active 25871505 Problem HIV (human immunodeficiency virus infection) Z21 Active 13217670 Problem Anemia due to chronic blood loss D50.0 Active 949853381 Problem Need for prophylactic vaccination and inoculation, Influen za V04.81 Active 825272327 Problem PPV23 (PNEUMOVAX) DX V03.82 Active 55969121 Problem Bipolar disorder, unspecified 296.80 Active 64566513 Problem Mild intermittent asthma without complication J45. 20 Active 927746635 ALLERGIES No Information ENCOUNTERS Encounter Location Date Diagnosis [facility] [address] [facility] [id number] [address] [place] [phone] Jun, [facility] [address] [place] [address] May, [facility] K92[facility]1 [facility] [address] [place] [address] May, [facility] K92[facility]1 [facility] [address] [facility] [id number] [address] [place] [phone] Apr, [facility] [address] [facility] [id number] [address] [place] [phone] Mar, [facility] [address] [facility] [id number] [address] [place] [phone] Feb, [facility] [address] [facility] [id number] [address] [place] [phone] Nov, [facility] [address] [facility] [id number] [address] [place] [phone] Sep, [facility] [address] [id number] [address] [place] [phone] Jun, [facility] [address] [id number] [address] [place] [phone] Jan, [facility] [address] [id number] [address] [place] [phone] Nov, [facility] [id number] [place] [id number] Oct, [facility] [address] [id number] [address] [place] [phone] July, [facility] [address] [facility] [id number] [address] [place] [phone] 13 Apr, 2016 Cough R05 [facility] [address] [id number] [address] [place] [phone] 10 Apr, 2016 [facility] [address] [id number] [address] [place] [phone] Jan, Human immunodeficiency virus (HIV) disease B20 and Anemia due to chronic blood loss D50.0 [facility] [address] [facility] [id number] [address] [place] [phone] Jan, [facility] [address] [facility] [id number] [address] [place] [phone] Dec, [facility] [address] [facility] [id number] [address] [place] [phone] Dec, Mild intermittent asthma wit hout complication J45.20 [facility] [address] [id number] [address] [place] [phone] Dec, [facility] [address] [facility] [id number] [address] [place] [phone] Dec, HIV (human immunodeficiency virus infection) Z21 and Mild intermittent asthma without complication J45.20 [facility] [address] [id number] [address] [place] [phone] 26 Nov, 2015 Cough R05 ; Fatigue, unspeci fied type R53.83 ; Diarrhea, unspecified type R19.7 ; HIV (human immunodeficiency virus infection) Z21 and Hemoptysis R04.2 [facility] [address] [id number] [address] [place] [phone] 14 Jun, 2014 [facility] [address] [id number] [address] [place] [phone] Jun, [facility] [address] [id number] [address] [place] [phone] May, [facility] [address] [facility] [id number] [address] [place] [phone] May, [place] [address] [facility] [id number] [place] [address] [id number] May, [facility] [address] [facility] [id number] [address] [place] [phone] May, [facility] [address] [facility] [id number] [address] [place] [phone] May, [facility] [address] [facility] [id number] [address] [place] [phone] May, [facility] [address] [facility] [id number] [address] [place] [phone] Mar, [facility] [address] [facility] [id number] [address] [place] [phone] Mar, [facility] [address] [facility] [id number] [address] [place] [phone] Jan, [facility] [address] [facility] [id number] [address] [place] [phone] Jan, [facility] [address] [facility] [id number] [address] [place] [phone] Jan, [facility] [address] [facility] [id number] [address] [place] [phone] Jan, [facility] [address] [facility] [id number] [address] [place] [phone] Jan, [facility] [address] [facility] [id number] [address] [place] [phone] Jan, [facility] [address] [facility] [id number] [address] [place] [phone] Dec, [id number] [place] [address] [id number] Dec, [facility] [address] [facility] [id number] [address] [place] [phone] Dec, [facility] [address] [facility] [id number] [address] [place] [phone] Dec, [facility] [address] [facility] [id number] [address] [place] [phone] Dec, [place] [id number] [place] [address] [id number] Oct, [facility] [address] [facility] [id number] [address] [place] [phone] Oct, [facility] [address] [facility] [id number] [address] [place] [phone] Aug, [facility] [address] [facility] [id number] [address] [place] [phone] Aug, [place] [id number] [place] [address] [id number] Aug, IMMUNIZATIONS No Known Immunizations SOCIAL HISTORY Never Assessed REASON FOR VISIT [facility] CARE VITAL SIGNS MEDICATIONS Unknown Medications RESULTS No Results PROCEDURES No Known procedures INSTRUCTIONS MEDICATIONS ADMINISTERED No Known Medications MEDICAL (GENERAL) HISTORY Type Description Date Medical History Bipolar disorder, unspecified Medical History Asymptomatic human immunodef iciency virus (HIV) infection status
--- OUTSIDE RECORDS SUMMARY | 2019-07-04 12:05 | XMS REPORT ---
Author Author Sergio Delarosa Doctor Organization [facility] Address Unknown Phone Unavailable Care Team Providers Care Incising Machine Operator Name Role Phone Migration, Doctor Unavailable Unavailable PROBLEMS Type Condition ICD9-CM Code [id number] Code Onset Dates Condition S tatus SNOMED Code Problem Asymptomatic human immunodeficiency virus (HIV) infect ion status V08 Active 23932388 Problem HIV (human immunodeficiency virus infection) Z21 Active 42903271 Problem Anemia due to chronic blood loss D50.0 Active 532960299 Problem Need for prophylactic vaccination and inoculation, Influen za V04.81 Active 367586560 Problem PPV23 (PNEUMOVAX) DX V03.82 Active 11056245 Problem Bipolar disorder, unspecified 296.80 Active 84598626 Problem Mild intermittent asthma without complication J45. 20 Active 207299946 ALLERGIES Substance Reaction Event Type Date Status Penicillin unknown Drug Allergy Jun, Active ENCOUNTERS Encounter Location Date Diagnosis [facility] [address] [facility]NOTE 3] [id number] [address] [place] [phone] Jun, [facility] IN [facility] [address] [place] [address] May, [facility] K92.1 [facility] IN [facility] [address] [place] [address] May, Melena K92.1 [facility] [address] [facility]NOTE 3] [id number] [address] [place] [phone] Apr, [facility] [address] [facility]NOTE 3] [id number] [address] [place] [phone] Mar, [facility] [address] [facility]NOTE 3] [id number] [address] [place] [phone] Feb, [facility] [address] [facility]NOTE 3] [id number] [address] [place] [phone] Nov, [facility] [address] [id number] [address] [place] [phone] Sep, [facility] [address] [id number] [address] [place] [phone] Jun, [facility] [address] [id number] [address] [place] [phone] Jan, [facility] [address] [id number] [address] [place] [phone] Nov, [facility] [id number] [place] [address], [place] [id number] Oct, [facility] [address] [id number] [address] [place] [phone] July, [facility] [address] [id number] [address] [place] [phone] 13 Apr, 2016 Cough R05 [facility] [address] [id number] [address] [place] [phone] 10 Apr, 2016 [facility] [address] [id number] [address] [place] [phone] Jan, Human immunodeficiency virus (HIV) disease B20 and Anemia due to chronic blood loss D50.0 [facility] [address] [id number] [address] [place] [phone] Jan, [facility] [address] [id number] [address] [place] [phone] Dec, [facility] [address] [id number] [address] [place] [phone] Dec, Mild intermittent asthma wit hout complication J45.20 [facility] [address] [id number] [address] [place] [id number] 17 Dec, 2015 [facility] [address] [id number] [address] [place] [phone] 07 Dec, 2015 HIV (human immunodeficiency virus infection) Z21 and Mild intermittent asthma without complication J45.20 [facility] [address] [id number] [address] [place] [id number] 26 Nov, 2015 Cough R05 ; Fatigue, unspeci fied type R53.83 ; Diarrhea, unspecified type R19.7 ; HIV (human immunodeficiency virus infection) Z21 and Hemoptysis R04.2 [facility] [address] [facility]NOTE 3] [id number] [address] [place] [phone] 14 Jun, 2014 [facility] [address] [id number] [address] [place] [phone] Jun, [facility] [address] [facility]] [id number] [address] [place] [phone] May, [facility] [address] [facility]NOTE 3] [id number] [address] [place] [phone] May, [facility] [id number] [place] [phone] May, [facility] [address] [facility]NOTE 3] [id number] [address] [place] [phone] May, [facility] [address] [facility]NOTE 3] [id number] [address] [place] [phone] May, [facility] [address] [facility]NOTE 3] [id number] [address] [place] [phone] May, [facility] [address] [facility]NOTE 3] [id number] [address] [place] [phone] Mar, [facility] [address] [facility]NOTE 3] [id number] [address] [place] [phone] Mar, [facility] [address] [facility]NOTE 3] [id number] [address] [place] [phone] Jan, [facility] [address] [facility]NOTE 3] [id number] [address] [place] [phone] Jan, [facility] [address] [facility]NOTE 3] [id number] [address] [place] [phone] Jan, [facility] [address] [facility]NOTE 3] [id number] [address] [place] [phone] Jan, [facility] [address] [facility]NOTE 3] [id number] [address] [place] [phone] Jan, [facility] [address] [facility]NOTE 3] [id number] [address] [place] [phone] Jan, [facility] [address] [facility]NOTE 3] [id number] [address] [place] [phone] Dec, [place] [id number] [place] [phone] Dec, [facility] [address] [facility]NOTE 3] [id number] [address] [place] [phone] Dec, [facility] [address] [facility]NOTE 3] [id number] [address] [place] [phone] Dec, [facility] [address] [facility]NOTE 3] [id number] [address] [place] [phone] Dec, [place] [id number] [place] [id number] [place] [phone] Oct, [facility] [address] [facility]NOTE 3] [id number] [address] [place] [phone] Oct, [facility] [address] [facility]NOTE 3] [id number] [address] [place] [phone] Aug, [facility] [address] [facility]NOTE 3] [id number] [address] [place] [phone] Aug, [place] [address] [place] [id number] [phone] Aug, IMMUNIZATIONS No Known Immunizations SOCIAL HISTORY Never Assessed REASON FOR VISIT EMR-[facility] [place] PLAN OF CARE VITAL SIGNS MEDICATIONS Medication Instructions Dosage Frequency Start Date End Date Duration S aby Atripla 600-200-300 mg take 1 tablet by oral route once daily on an empty stomach May, Active RESULTS No Results PROCEDURES No Known procedures INSTRUCTIONS MEDICATIONS ADMINISTERED No Known Medications MEDICAL (GENERAL) HISTORY Type Description Date Medical History Bipolar disorder, unspecified Medical History Asymptomatic human immunodef iciency virus (HIV) infection status
--- NOTE | 2019-07-04 12:06 | ED General ---
General Chief Complaint: Psych/Social Disorder Stated Complaint: OFF MEDS History of Present Illness Date Seen by Provider: July 04, 2019 Time Seen by Provider: 12:01 Initial Comments 38 yo male report is he started yelling and screaming doing bizarre things this AM sister called police he was totally uncooperative and violent with police tazered x3 reportedly he is HIV + has prior visits for chronic diarrhea and anemia pt is screaming obscenities, impossible to take any meaningful hx he is handcuffed behind his back, has restraining wrap around legs and hooded screen over face in reaction to him spitting on others he responds meaningfully but all with hostility Allergies and Home Medications Allergies Coded Allergies: Penicillins (Verified Allergy, Unknown, possible childhood, 05/25/16) alprazolam (Verified Allergy, Unknown, abd spasms, 05/25/16) Home Medications Albuterol Sulfate 6.7 Gm Hfa.aer.ad, 2 PUFF IH Q6H PRN for SHORTNESS OF BREATH, (Reported) Ascorbic Acid 500 Mg Tablet, 500 MG PO TID, (Reported) Crofelemer 125 Mg Tablet.dr, 125 MG PO BID, (Reported) Elviteg/Kimberly/Emtric/Tenofo Ala 1 Each Tablet, 1 EACH PO DAILY, (Reported) Ferrous Sulfate 325 Mg Tablet.dr, 325 MG PO TID, (Reported) Glucosamine Sulfate 2Kcl 1,000 Mg Tablet, 1,000 MG PO BID, (Reported) Hydralazine HCl 25 Mg Tablet, 25 MG PO TID PRN for ANXIETY, (Reported) Hydrocodone Bit/Acetaminophen 1 Each Tablet, 1 EACH PO Q6H PRN for PAIN, (Reported) Loratadine 10 Mg Tablet, 10 MG PO DAILY, (Reported) Metronidazole 500 Mg Tablet, 500 MG PO TID, (Reported) Montelukast Sodium 10 Mg Tablet, 10 MG PO HS, (Reported) Mupirocin Calcium 15 Gm Cream..g., 1 GM TP TID, (Reported) Scopolamine 1 Each Patch.td72, 1 EACH TD q72 hours, (Reported) Tramadol HCl 50 Mg Tablet, 50 MG PO Q6H PRN for PAIN, (Reported) Vitamin B Complex & Vit C No.3 1 Each Capsule, 1 EACH PO BID, (Reported) Patient Home Medication List Home Medication List Reviewed: Yes Review of Systems Review of Systems Constitutional: no symptoms reported, other (impossible to obtain any useful ROS due to mental status) Past Pnmxvup-Ekxgxu-Dqzvbe Hx Patient Social History Alcohol Use: Denies Use Recreational Drug Use: No (Unknown) Type Used: Electronic/Vapor Recent Hopitalizations: No Immunizations Up To Date Tetanus Booster (TDap): Unknown Date of Influenza Vaccine: Dec 26, 2015 Seasonal Allergies Seasonal Allergies: Yes Past Medical History Surgeries: No Respiratory: Yes (early COPD) Asthma Currently Using CPAP: No Currently Using BIPAP: No Cardiac: No Neurological: No Reproductive Disorders: No HIV/AIDS: Yes (HIV POSITIVE) Genitourinary: No Gastrointestinal: No Chronic Diarrhea Musculoskeletal: No (joint pain) Endocrine: No HEENT: No Cancer: No Psychosocial: No Anxiety Integumentary: No Blood Disorders: Yes (anemia, ) Adverse Reaction/Blood Tranf: No Physical Exam Vital Signs Vital Signs - First Documented 07/04/19 12:02 Temp 37.4 Pulse 138 Resp 22 B/P (MAP) 145/83 (103) Pulse Ox 97 O2 Delivery Room Air Capillary Refill : Height, Weight, BMI Height: 5'1.00" Weight: 135lbs. 0.0oz. 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 Norm as Tested Progress/Results/Core Measures Suspected Sepsis SIRS Temperature: Pulse: Respiratory Rate: Laboratory Tests 07/04/19 12:50: White Blood Count 15.6H Blood Pressure / Mean: Laboratory Tests 07/04/19 12:50: Creatinine 1.73H, Platelet Count 281, Total Bilirubin 0.4 Results/Orders Lab Results My Orders Medications Given in ED Vital Signs/I&O Capillary Refill : Progress Note : Progress Note pt calmed down a lot after Haldol IM kicked in he does not complain of any symptoms of illness or injury hemoglobin 14 6 white count 15,600 chemistries BUN 32 creatinine 1.7 anion gap 25 UDS showed multiple positives oxycodone THC and most notably PCP believe his behavior was quite consistent with a PCP intoxication other than being a little dehydrated there doesn't appear to be anything going on medically requiring specific intervention he needs some oral hydration we'll release him to law enforcement custody Departure Impression Primary Impression: PCP intoxication Qualified Codes: 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 Decision time for Depature: 14:39 Referrals: JUNIOR BALDERAS MD (PCP) Primary Care Physician FIONA DUQUE (Family) Primary Care Physician Patient Instructions: Drug Abuse Treatment Add. Discharge Instructions: it appears the main difficulty today was result of PCP use highly recommend avoiding this in the future Patient cleared to go with law enforcement officers cleared for confinement / incarceration All discharge instructions reviewed with patient and/or family. Voiced understanding. KAL ZAPATA MD July 04, 2019 12:06
--- OUTSIDE RECORDS SUMMARY | 2019-07-04 12:07 | XMS REPORT | Continuity of Care Document ---
Demographics Preferred Language Unknown Marital Status Unknown Baptism Affiliation Unknown Race Unknown Ethnic Group Unknown Author Organization Unknown Address Unknown Phone Unavailable Allergies Active Description Code Type Severity Reaction Onset Reported/Identified Relationship to Patient Clinical Status Yes No Known Drug Allergies [id number] Drug Allergy Unknown N/A 01/17/2016 Yes alprazolam [id number] Drug Allerg y Unknown abd spasms 05/25/2016 Yes Penicillins [id number] Drug Aller gy Unknown possible childh 05/25/2016 Medications There is no data. Problems Date Dx Coded Attending Type Code Diagnosis Diagnosed By 08/08/2012 296.80 BIP OLAR DISORDER NOS 08/08/2012 V08 report ed positive HIV test, no symptoms of infection 08/08/2012 LINDSEY WEISS MD 296 .80 BIPOLAR DISORDER NOS 08/08/2012 LINDSEY WEISS MD V08 reported positive HIV test, no symptoms of infection 08/08/2012 LINDSEY WEISS MD 296 .80 BIPOLAR DISORDER NOS 08/08/2012 LINDSEY WEISS MD8 reported positive HIV test, no symptoms of infection 08/08/2012 LINDSEY WEISS MD 296 .80 BIPOLAR DISORDER NOS 08/08/2012 LINDSEY WEISS MD8 reported positive HIV test, no symptoms of infection 01/01/2013 LINDSEY WEISS MD V03 .82 PPV23 (PNEUMOVAX) DX 01/01/2013 LINDSEY WEISS MD V04 .81 FLU SHOT 01/01/2013 LINDSEY WEISS MD V03 .82 PPV23 (PNEUMOVAX) DX 01/01/2013 LINDSEY WEISS MD V04 .81 FLU SHOT 03/07/2016 CAM [place] MD Ot D64 .9 ANEMIA, UNSPECIFIED 04/13/2016 CAM [place] MD Ot D64 .9 ANEMIA, UNSPECIFIED 05/25/2016 CAM [place] MD Ot D64 .9 ANEMIA, UNSPECIFIED 05/25/2016 CAM [place] MD Ot D64 .9 ANEMIA, UNSPECIFIED 05/25/2016 PAT PEARCE, RODDY Rodriguez Ot R19.7 DIARRHEA, UNSPECIFIED 05/25/2016 PAT PEARCE, RODDY Rodriguez Ot Z01.818 ENCOUNTER FOR OTHER PREPROCEDURAL EXAMIN 05/26/2016 PAT PEARCE, RODDY Rodriguez Ot R19.7 DIARRHEA, UNSPECIFIED 05/26/2016 PAT PEARCE, RODDY M Ot Z01.818 ENCOUNTER FOR OTHER PREPROCEDURAL EXAMIN 05/29/2016 PAT PEARCE, RODDY Rodriguez Ot K52.89 OTHER SPECIFIED NONINFECTIVE GASTROENTER 05/29/2016 PAT PEARCE, RODDY M Ot Z2 1 ASYMPTOMATIC HUMAN IMMUNODEFICIENCY VIRU 06/02/2016 PAT PEARCE, RODDY Rodriguez Ot K52.89 OTHER SPECIFIED NONINFECTIVE GASTROENTER 06/02/2016 PAT PEARCE, RODDY Rodriguez Ot Z2 1 ASYMPTOMATIC HUMAN IMMUNODEFICIENCY VIRU 06/04/2016 PAT PEARCE, RODDY Rodriguez Ot K52.89 OTHER SPECIFIED NONINFECTIVE GASTROENTER 06/04/2016 PAT PEARCE, RODDY M Ot Z2 1 ASYMPTOMATIC HUMAN IMMUNODEFICIENCY VIRU 06/07/2016 PAT PEARCE, RODDY Rodriguez Ot K52.89 OTHER SPECIFIED NONINFECTIVE GASTROENTER 06/07/2016 PAT PEARCE, RODDY M Ot Z2 1 ASYMPTOMATIC HUMAN IMMUNODEFICIENCY VIRU 03/09/2018 SHILPA DESOUZA Ot D64.9 ANEMIA, UNSPECIFIED 03/09/2018 SHILPA DESOUZA Ot F41.9 ANXIETY DISORDER, UNSPECIFIED 03/09/2018 SHILPA DESOUZA Ot J44.9 CHRONIC OBSTRUCTIVE PULMONARY DISEASE, U 03/09/2018 SHILPA DESOUZA Ot M25.562 PAIN IN LEFT KNEE 03/09/2018 SHILPA DESOUZA Ot S83.92XA SPRAIN OF UNSPECIFIED SITE OF LEFT KNEE, 03/09/2018 SHILPA DESOUZA Ot W10.9XXA FALL (ON) (FROM) UNSPECIFIED STAIRS AND 03/09/2018 SHILPA DESOUZA Ot X50.1XXA OVEREXERTION FROM PROLONGED STATIC OR AW 03/09/2018 SHILPA DESOUZA Ot Z21 ASYMPTOMATIC HUMAN IMMUNODEFICIENCY VIRU 03/09/2018 SHILPA DESOUZA Ot 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 03/09/2018 SHILPA DESOUZA Ot Z87.19 PERSONAL HISTORY OF OTHER DISEASES OF TH 03/09/2018 SHILPA DESOUZA Ot Z88.0 ALLERGY STATUS TO PENICILLIN 03/09/2018 SHILPA DESOUZA Ot Z88.8 ALLERGY STATUS TO OTH DRUG/MEDS/BIOL SUB 03/11/2018 LYLY SHILPA Ot D64.9 ANEMIA, UNSPECIFIED 03/11/2018 SHILPA DESOUZA Ot F41.9 ANXIETY DISORDER, UNSPECIFIED 03/11/2018 SHILPA DESOUZA Ot J44.9 CHRONIC OBSTRUCTIVE PULMONARY DISEASE, U 03/11/2018 LYLY SHILPA Ot M25.562 PAIN IN LEFT KNEE 03/11/2018 NATALIIA DESOUZAIS Ot S83.92XA SPRAIN OF UNSPECIFIED SITE OF LEFT KNEE, 03/11/2018 NATALIIA DESOUZAIS Ot W10.9XXA FALL (ON) (FROM) UNSPECIFIED STAIRS AND 03/11/2018 LYLY SHILPA Ot X50.1XXA OVEREXERTION FROM PROLONGED STATIC OR AW 03/11/2018 NATALIIA DESOUZAIS Ot Z21 ASYMPTOMATIC HUMAN IMMUNODEFICIENCY VIRU 03/11/2018 LYLY SHILPA Ot 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 03/11/2018 NATALIIA DESOUZAIS Ot Z87.19 PERSONAL HISTORY OF OTHER DISEASES OF TH 03/11/2018 NATALIIA DESOUZAIS Ot Z88.0 ALLERGY STATUS TO PENICILLIN 03/11/2018 NATALIIA DESOUZAIS Ot Z88.8 ALLERGY STATUS TO OTH DRUG/MEDS/BIOL SUB 03/15/2018 SHILPA DESOUZA Ot D64.9 ANEMIA, UNSPECIFIED 03/15/2018 SHILPA DESOUZA Ot F41.9 ANXIETY DISORDER, UNSPECIFIED 03/15/2018 SHILPA DESOUZA Ot J44.9 CHRONIC OBSTRUCTIVE PULMONARY DISEASE, U 03/15/2018 SHILPA DESOUZA Ot M25.562 PAIN IN LEFT KNEE 03/15/2018 NATALIIA DESOUZAIS Ot S83.92XA SPRAIN OF UNSPECIFIED SITE OF LEFT KNEE, 03/15/2018 NATALIIA DESOUZAIS Ot W10.9XXA FALL (ON) (FROM) UNSPECIFIED STAIRS AND 03/15/2018 LYLY SHILPA Ot X50.1XXA OVEREXERTION FROM PROLONGED STATIC OR AW 03/15/2018 NATALIIA DESOUZAIS Ot Z21 ASYMPTOMATIC HUMAN IMMUNODEFICIENCY VIRU 03/15/2018 NATALIIA DESOUZAIS Ot Z79.51 JAIL (CURRENT) USE OF INHALED STERO 03/15/2018 SHILPA DESOUZA Ot Z87.19 PERSONAL HISTORY OF OTHER DISEASES OF TH 03/15/2018 SHILPA DESOUZA Ot Z88.0 ALLERGY STATUS TO PENICILLIN 03/15/2018 SHILPA DESOUZA Ot Z88.8 ALLERGY STATUS TO OTH DRUG/MEDS/BIOL SUB Procedures Code Description [place] [address] ROUT INE VENIPUNCTURE 08/08/2012 52529 CMP 08/09/2012 9611264 GF R CALC (RESULT ONLY) 08/09/2012 1647182 CO MPLETE BLOOD COUNT NO DIFF (CBC Result) 08/09/2012 30904 DIFF ERENTIAL WBC COUNT (CBC DIFF RESULT) 08/09/2012 52236 CBC W/MANUAL DIF (order) 08/10/2012 77616 T CE LL ABSOLUTE COUNT/RATIO 08/10/2012 72824 HIV- 1 QUANT&REVRSE TRNSCRPJ 08/10/2012 72454 ROUT INE VENIPUNCTURE 10/09/2012 TCELLCD8 T -HELPER COUNT/RATIO CD-4 CD-8 10/16/2012 06771 ROUT INE VENIPUNCTURE 01/01/2013 32399 CMP 01/01/2013 19689 TSH 01/01/2013 30550 CBC W/MANUAL DIF (order) 01/01/2013 08994 HIV- 1 DNA QUANT 01/01/2013 [id number] T -HELPER COUNT/RATIO CD-4 CD-8 01/01/2013 3998903 LOWELL Scott HIV SPEC FOR RML MOLECULAR 05/21/2013 85812 CMP 05/21/2013 74393 TSH 05/21/2013 85967 CBC W/MANUAL DIF (order) 05/21/2013 62049 HIV- 1 DNA QUANT 05/21/2013 [id number] T -HELPER COUNT/RATIO CD-4 CD-8 05/21/2013 Results Test Result Range CBC With Differential/Platelet - 6 12:29 WBC TNP x10E3/uL RBC TNP Hemoglobin TNP Hematocrit TNP Platelets TNP Neutrophils TNP Lymphs TNP Monocytes TNP Eos TNP Lymphs (Absolute) TNP Eos (Absolute) TNP Baso (Absolute) TNP Comp. Metabolic Panel (14) - 11/29/15 12 :29 Glucose, Serum 85 mg/dL 65-99 BUN 12 mg/dL 6-20 Creatinine, Serum 0.72 mg/dL 0.76-1.27 eGFR If NonAfricn Am 119 mL/min/1.73 >59 eGFR If Africn Am 138 mL/min/1.73 >5 9 BUN/Creatinine Ratio 17 8-19 Sodium, Serum 136 mmol/L 134-144 Potassium, Serum 4.0 mmol/L 3.5-5.2 Chloride, Serum 99 mmol/L 97-108 Carbon Dioxide, Total 20 mmol/L 18-29 Calcium, Serum 9.2 mg/dL 8.7-10.2 Protein, Total, Serum 7.7 g/dL 6.0-8.5 Albumin, Serum 3.8 g/dL 3.5-5.5 Globulin, Total 3.9 g/dL 1.5-4.5 A/G Ratio 1.0 1.1-2.5 Bilirubin, Total 0.2 mg/dL 0.0-1.2 Alkaline Phosphatase, S 66 IU/L 39-117 AST (SGOT) 15 IU/L 0-40 ALT (SGPT) 8 IU/L 0-44 Panel [id number] - 11/29/15 12:29 HIV Screen 4th Generation wRfx Comment Non Reactive HIV 1/2 Ab Differentiation - 11/29/15 12 :29 HIV 1 Ab Positive Negative HIV 2 Ab Negative Negative Interpretation: Comment Request Problem - 11/29/15 12:29 Request Problem TNP RED CELLS LEUKO REDUCED AS1 - 01/14/16 1 6:06 RED CELLS LEUKO REDUCED AS1 N OT AVAILABLE NRG Blood type T Indirect antibody screen [facility] - 01/14/16 16:06 ABO+Rh group AP NRG Transfusion band number [id number] NRG Blood group antibody screen NEGATIVE NR G RED CELLS LEUKO REDUCED AS1 - 01/17/16 0 8:24 RED CELLS LEUKO REDUCED AS1 T RANSFUSED 01/17/16 0927 NRG Blood type T Indirect antibody screen [facility] - 01/17/16 08:24 ABO+Rh group AP NRG Transfusion band number [id number] NRG Blood group antibody screen NEGATIVE NR G RNA, Real Time PCR (Graph) - 02/02/16 16 :14 HIV-1 RNA by PCR 120 copies/mL log10 HIV-1 RNA 2.079 rud88mtwe/mL CD4/CD8 Ratio Profile - 02/02/16 16:14 WBC 9.3 x10E3/uL 3.4-10.8 RBC 4.59 x10E6/uL 4.14-5.80 Hemoglobin 8.3 g/dL 12.6-17.7 Hematocrit 31.2 % 37.5-51.0 MCV 68 fL 79-97 MCH 18.1 pg 26.6-33.0 MCHC 26.6 g/dL 31.5-35.7 RDW 26.1 % 12.3-15.4 Platelets 649 x10E3/uL 150-379 Neutrophils 62 % Lymphs 25 % Monocytes 5 % Eos 1 % Basos 0 % Immature Cells Note Neutrophils (Absolute) 6.4 x10E3/uL 1.4- 7.0 Lymphs (Absolute) 2.3 x10E3/uL 0.7-3.1 Monocytes(Absolute) 0.5 x10E3/uL 0.1-0.9 Eos (Absolute) 0.1 x10E3/uL 0.0-0.4 Baso (Absolute) 0.0 x10E3/uL 0.0-0.2 Hematology Comments: Note: Absolute CD 4 [place] 163 /uL 359-1519 Abs. CD 8 Suppressor 1449 /uL 109-897 % CD 4 Pos. Lymph. 7.1 % 30.8-58.5 % CD 8 Pos. Lymph. 63.0 % 12.0-35.5 CD4/CD8 Ratio 0.11 0.92-3.72 Immature Cells - 02/02/16 16:14 Bands 7 % Not Estab. CBC With Differential/Platelet - 6 16:14 WBC 9.3 x10E3/uL 3.4-10.8 RBC 4.61 x10E6/uL 4.14-5.80 Hemoglobin 8.4 g/dL 12.6-17.7 Hematocrit 30.7 % 37.5-51.0 MCV 67 fL 79-97 MCH 18.2 pg 26.6-33.0 MCHC 27.4 g/dL 31.5-35.7 RDW 25.8 % 12.3-15.4 Platelets 735 x10E3/uL 150-379 Neutrophils 78 % Lymphs 18 % Monocytes 4 % Eos 0 % Basos 0 % Neutrophils (Absolute) 7.3 x10E3/uL 1.4- 7.0 Lymphs (Absolute) 1.7 x10E3/uL 0.7-3.1 Monocytes(Absolute) 0.3 x10E3/uL 0.1-0.9 Eos (Absolute) 0.0 x10E3/uL 0.0-0.4 Baso (Absolute) 0.0 x10E3/uL 0.0-0.2 Immature Granulocytes 0 % Immature Grans (Abs) 0.0 x10E3/uL 0.0-0. 1 Hematology Comments: Note: Comp. Metabolic Panel (14) - 02/02/16 16 :14 Glucose, Serum 91 mg/dL 65-99 BUN 14 mg/dL 6-20 Creatinine, Serum 0.82 mg/dL 0.76-1.27 eGFR If NonAfricn Am 113 mL/min/1.73 >59 eGFR If Africn Am 131 mL/min/1.73 >5 9 BUN/Creatinine Ratio 17 8-19 Sodium, Serum 136 mmol/L 136-144 Potassium, Serum 5.7 mmol/L 3.5-5.2 Chloride, Serum 94 mmol/L 97-106 Carbon Dioxide, Total 26 mmol/L 18-29 Calcium, Serum 9.2 mg/dL 8.7-10.2 Protein, Total, Serum 8.1 g/dL 6.0-8.5 Albumin, Serum 3.7 g/dL 3.5-5.5 Globulin, Total 4.4 g/dL 1.5-4.5 A/G Ratio 0.8 1.1-2.5 Bilirubin, Total <0.2 mg/dL 0.0-1.2 Alkaline Phosphatase, S 70 IU/L 39-117 AST (SGOT) 13 IU/L 0-40 ALT (SGPT) 8 IU/L 0-44 Iron and TIBC - 02/02/16 16:14 Iron Bind.Cap.(TIBC) 261 ug/dL 250-450 UIBC 245 ug/dL 111-343 Iron, Serum 16 ug/dL 38-169 Iron Saturation 6 % 15-55 Vitamin B12 - 02/02/16 16:14 Vitamin B12 984 pg/mL 211-946 Ferritin, Serum - 02/02/16 16:14 Ferritin, Serum 52 ng/mL 30-400 CD4/CD8 Ratio Profile [id number] - 01/08/17 1 2:54 WBC 6.3 x10E3/uL 3.4-10.8 RBC 4.86 x10E6/uL 4.14-5.80 Hemoglobin 13.3 g/dL 12.6-17.7 Hematocrit 41.8 % 37.5-51.0 MCV 86 fL 79-97 MCH 27.4 pg 26.6-33.0 MCHC 31.8 g/dL 31.5-35.7 RDW 18.1 % 12.3-15.4 Platelets 332 x10E3/uL 150-379 Neutrophils 51 % Not Estab. Lymphs 35 % Not Estab. Monocytes 5 % Not Estab. Eos 8 % Not Estab. Basos 1 % Not Estab. Immature Cells H[employer] NRG Neutrophils (Absolute) 3.2 x10E3/uL 1.4- 7.0 Lymphs (Absolute) 2.2 x10E3/uL 0.7-3.1 Monocytes(Absolute) 0.3 x10E3/uL 0.1-0.9 Eos (Absolute) 0.5 x10E3/uL 0.0-0.4 Baso (Absolute) 0.0 x10E3/uL 0.0-0.2 Immature Granulocytes 0 % Not Esta b. Immature Grans (Abs) 0.0 x10E3/uL 0.0-0. 1 NRBC [employer] NRG Hematology Comments: HIDE [employer] SK[employer]ERER NRG Absolute CD 4 [place] 352 /uL 359-1519 % CD 4 Pos. Lymph. 16.0 % 30.8-58.5 Abs. CD 8 Suppressor 1085 /uL 109-897 % CD 8 Pos. Lymph. 49.3 % 12.0-35.5 CD4/CD8 Ratio 0.32 0.92-3.72 Lipid Panel 13776 - 06/15/17 09:12 Cholesterol, Total 153 mg/dL 100-199 Triglycerides 115 mg/dL 0-149 HDL Cholesterol 52 mg/dL >39 VLDL Cholesterol Manoj 23 mg/dL 5-40 LDL Cholesterol Calc 78 mg/dL 0-99 Comment: H[employer]ERER NR Metabolic Panel (14), Comprehensive (CMP ) 10664 - 06/15/17 09:12 Glucose, Serum 99 mg/dL 65-99 BUN 15 mg/dL 6-20 Creatinine, Serum 0.96 mg/dL 0.76-1.27 eGFR If NonAfricn Am 100 mL/min/1.73 >59 eGFR If Africn Am 115 mL/min/1.73 >5 9 BUN/Creatinine Ratio 16 9-20 Sodium, Serum 139 mmol/L 134-144 Potassium, Serum 4.5 mmol/L 3.5-5.2 Chloride, Serum 100 mmol/L 96-106 Carbon Dioxide, Total 26 mmol/L 18-29 Calcium, Serum 9.4 mg/dL 8.7-10.2 Protein, Total, Serum 7.6 g/dL 6.0-8.5 Albumin, Serum 4.7 g/dL 3.5-5.5 Globulin, Total 2.9 g/dL 1.5-4.5 A/G Ratio 1.6 1.2-2.2 Bilirubin, Total <0.2 mg/dL 0.0-1.2 Alkaline Phosphatase, S 96 IU/L 39-117 AST (SGOT) 19 IU/L 0-40 ALT (SGPT) 10 IU/L 0-44 CD4/CD8 Ratio Profile [id number] - 06/15/17 0 9:12 WBC 8.2 x10E3/uL 3.4-10.8 RBC 4.78 x10E6/uL 4.14-5.80 Hemoglobin 12.7 g/dL 13.0-17.7 Hematocrit 40.1 % 37.5-51.0 MCV 84 fL 79-97 MCH 26.6 pg 26.6-33.0 MCHC 31.7 g/dL 31.5-35.7 RDW 16.7 % 12.3-15.4 Platelets 349 x10E3/uL 150-379 Neutrophils 47 % Not Estab. Lymphs 34 % Not Estab. Monocytes 12 % Not Estab. Eos 7 % Not Estab. Basos 0 % Not Estab. Immature Cells [employer] NRG Neutrophils (Absolute) 3.9 x10E3/uL 1.4- 7.0 Lymphs (Absolute) 2.8 x10E3/uL 0.7-3.1 Monocytes(Absolute) 0.9 x10E3/uL 0.1-0.9 Eos (Absolute) 0.6 x10E3/uL 0.0-0.4 Baso (Absolute) 0.0 x10E3/uL 0.0-0.2 Immature Granulocytes 0 % Not Esta b. Immature Grans (Abs) 0.0 x10E3/uL 0.0-0. 1 NRBC [employer] NRG Hematology Comments: HIDE [employer]ER NRG Absolute CD 4 [place] 361 /uL [phone] % CD 4 Pos. Lymph. 12.9 % 30.8-58.5 Abs. CD 8 Suppressor 1484 /uL 109-897 % CD 8 Pos. Lymph. 53.0 % 12.0-35.5 CD4/CD8 Ratio 0.24 0.92-3.72 Rapid Plasma Reagin (RPR), Test w/ Refle x to Quant RPR/Confirm Treponema pallidum Antibodies [id number] - 09/21/17 09:44 RPR Reactive Non Reactive RPR, Quant. 1:2 NonRea<1:1 Treponema pallidum Antibodies Positive Negative Metabolic Panel (14), Comprehensive (CMP ) [id number] - 09/21/17 09:44 Glucose, Serum 86 mg/dL 65-99 BUN 17 mg/dL 6-20 Creatinine, Serum 0.87 mg/dL 0.76-1.27 eGFR If NonAfricn Am 109 mL/min/1.73 >59 eGFR If Africn Am 126 mL/min/1.73 >5 9 BUN/Creatinine Ratio 20 9-20 Sodium, Serum 136 mmol/L 134-144 Potassium, Serum 4.7 mmol/L 3.5-5.2 Chloride, Serum 99 mmol/L 96-106 Carbon Dioxide, Total 22 mmol/L 20-29 Calcium, Serum 9.8 mg/dL 8.7-10.2 Protein, Total, Serum 7.8 g/dL 6.0-8.5 Albumin, Serum 4.4 g/dL 3.5-5.5 Globulin, Total 3.4 g/dL 1.5-4.5 A/G Ratio 1.3 1.2-2.2 Bilirubin, Total 0.3 mg/dL 0.0-1.2 Alkaline Phosphatase, S 92 IU/L 39-117 AST (SGOT) 22 IU/L 0-40 ALT (SGPT) 12 IU/L 0-44 CD4/CD8 Ratio Profile [id number] - 09/21/17 0 9:44 WBC 6.3 x10E3/uL 3.4-10.8 RBC 4.85 x10E6/uL 4.14-5.80 Hemoglobin 12.7 g/dL 13.0-17.7 Hematocrit 41.0 % 37.5-51.0 MCV 85 fL 79-97 MCH 26.2 pg 26.6-33.0 MCHC 31.0 g/dL 31.5-35.7 RDW 15.9 % 12.3-15.4 Platelets 335 x10E3/uL 150-379 Neutrophils 67 % Not Estab. Lymphs 22 % Not Estab. Monocytes 7 % Not Estab. Eos 3 % Not Estab. Basos 1 % Not Estab. Immature Cells H[employer] NRG Neutrophils (Absolute) 4.2 x10E3/uL 1.4- 7.0 Lymphs (Absolute) 1.4 x10E3/uL 0.7-3.1 Monocytes(Absolute) 0.5 x10E3/uL 0.1-0.9 Eos (Absolute) 0.2 x10E3/uL 0.0-0.4 Baso (Absolute) 0.0 x10E3/uL 0.0-0.2 Immature Granulocytes 0 % Not Esta b. Immature Grans (Abs) 0.0 x10E3/uL 0.0-0. 1 NRBC [employer] NRG Hematology Comments: H[employer] NRG Absolute CD 4 [place] 307 /uL [phone] % CD 4 Pos. Lymph. 21.9 % 30.8-58.5 Abs. CD 8 Suppressor 575 /uL 109-897 % CD 8 Pos. Lymph. 41.1 % 12.0-35.5 CD4/CD8 Ratio 0.53 0.92-3.72 Human Immunodeficiency Virus (HIV-1), Qu antitative, Real-time PCR (graph) [id number] - 11/30/17 10:59 HIV-1 RNA by PCR 30 copies/mL NRG log10 HIV-1 RNA 1.477 gvb95rjbt/mL NRG Metabolic Panel (14), Comprehensive (CMP ) [id number] - 11/30/17 10:59 Glucose, Serum 84 mg/dL 65-99 BUN 15 mg/dL 6-20 Creatinine, Serum 0.90 mg/dL 0.76-1.27 eGFR If NonAfricn Am 107 mL/min/1.73 >59 eGFR If Africn Am 124 mL/min/1.73 >5 9 BUN/Creatinine Ratio 17 9-20 Sodium, Serum 139 mmol/L 134-144 Potassium, Serum 4.4 mmol/L 3.5-5.2 Chloride, Serum 99 mmol/L 96-106 Carbon Dioxide, Total 23 mmol/L 20-29 Calcium, Serum 10.2 mg/dL 8.7-10.2 Protein, Total, Serum 7.9 g/dL 6.0-8.5 Albumin, Serum 5.0 g/dL 3.5-5.5 Globulin, Total 2.9 g/dL 1.5-4.5 A/G Ratio 1.7 1.2-2.2 Bilirubin, Total 0.3 mg/dL 0.0-1.2 Alkaline Phosphatase, S 92 IU/L 39-117 AST (SGOT) 26 IU/L 0-40 ALT (SGPT) 17 IU/L 0-44 CD4/CD8 Ratio Profile [id number] - 11/30/17 1 0:59 WBC 7.9 x10E3/uL 3.4-10.8 RBC 5.02 x10E6/uL 4.14-5.80 Hemoglobin 13.7 g/dL 13.0-17.7 Hematocrit 43.1 % 37.5-51.0 MCV 86 fL 79-97 MCH 27.3 pg 26.6-33.0 MCHC 31.8 g/dL 31.5-35.7 RDW 18.4 % 12.3-15.4 Platelets 351 x10E3/uL 150-379 Neutrophils 61 % Not Estab. Lymphs 26 % Not Estab. Monocytes 9 % Not Estab. Eos 4 % Not Estab. Basos 0 % Not Estab. Immature Cells [employer] NRG Neutrophils (Absolute) 4.7 x10E3/uL 1.4- 7.0 Lymphs (Absolute) 2.1 x10E3/uL 0.7-3.1 Monocytes(Absolute) 0.7 x10E3/uL 0.1-0.9 Eos (Absolute) 0.4 x10E3/uL 0.0-0.4 Baso (Absolute) 0.0 x10E3/uL 0.0-0.2 Immature Granulocytes 0 % Not Esta b. Immature Grans (Abs) 0.0 x10E3/uL 0.0-0. 1 NRBC [employer] NRG Hematology Comments: H[employer]ER NRG Absolute CD 4 [place] 386 /uL [phone] % CD 4 Pos. Lymph. 18.4 % 30.8-58.5 Abs. CD 8 Suppressor 974 /uL 109-897 % CD 8 Pos. Lymph. 46.4 % 12.0-35.5 CD4/CD8 Ratio 0.40 0.92-3.72 CD4/CD8 Ratio Profile [id number] - 02/08/18 1 2:29 WBC 7.9 x10E3/uL 3.4-10.8 RBC 4.68 x10E6/uL 4.14-5.80 Hemoglobin 13.2 g/dL 13.0-17.7 Hematocrit 42.1 % 37.5-51.0 MCV 90 fL 79-97 MCH 28.2 pg 26.6-33.0 MCHC 31.4 g/dL 31.5-35.7 RDW 15.7 % 12.3-15.4 Platelets 320 x10E3/uL 150-379 Neutrophils TNP NRG Lymphs TNP NRG Monocytes TNP NRG Eos TNP NRG Basos [employer] NRG Immature Cells H[employer] NRG Neutrophils (Absolute) H[employer] NRG Lymphs (Absolute) TNP NRG Monocytes(Absolute) H[employer] NRG Eos (Absolute) TNP NRG Baso (Absolute) TNP NRG Immature Granulocytes [employer] NRG Immature Grans (Abs) [employer] NRG NRBC [employer] NRG Hematology Comments: Note: NRG Absolute CD 4 [place] TNP NRG % CD 4 Pos. Lymph. 20.7 % 30.8-58.5 Abs. CD 8 Suppressor TNP NRG % CD 8 Pos. Lymph. 45.8 % 12.0-35.5 CD4/CD8 Ratio 0.45 0.92-3.72 CBC - 05/09/18 18:15 WHITE BLOOD CELL COUNT 10.8 Thousand/uL 3.8-10.8 RED BLOOD CELL COUNT 4.60 Million/uL 4.2 0-5.80 HEMOGLOBIN 13.6 g/dL 13.2-17.1 HEMATOCRIT 40.6 % 38.5-50.0 MCV 88.3 fL 80.0-100.0 MCH 29.6 pg 27.0-33.0 MCHC 33.5 g/dL 32.0-36.0 RDW 14.1 % 11.0-15.0 PLATELET COUNT 332 Thousand/uL 140-400 MPV 11.9 fL 7.5-12.5 ABSOLUTE NEUTROPHILS 6728 cells/uL 1500- 7800 ABSOLUTE LYMPHOCYTES 2581 cells/uL 850-3 900 ABSOLUTE MONOCYTES 1048 cells/uL 200-950 ABSOLUTE EOSINOPHILS 389 cells/uL 15-500 ABSOLUTE BASOPHILS 54 cells/uL 0-200 NEUTROPHILS 62.3 % NRG LYMPHOCYTES 23.9 % NRG MONOCYTES 9.7 % NRG EOSINOPHILS 3.6 % NRG BASOPHILS 0.5 % NRG Metabolic Panel (14), Comprehensive (CMP ) [id number] - 09/13/18 10:39 Glucose, Serum 88 mg/dL 65-99 BUN 14 mg/dL 6-24 Creatinine, Serum 0.88 mg/dL 0.76-1.27 eGFR If NonAfricn Am 107 mL/min/1.73 >59 eGFR If Africn Am 124 mL/min/1.73 >5 9 BUN/Creatinine Ratio 16 9-20 Sodium, Serum 141 mmol/L 134-144 Potassium, Serum 4.7 mmol/L 3.5-5.2 Chloride, Serum 102 mmol/L 96-106 Carbon Dioxide, Total 26 mmol/L 20-29 Calcium, Serum 9.9 mg/dL 8.7-10.2 Protein, Total, Serum 8.3 g/dL 6.0-8.5 Albumin, Serum 5.0 g/dL 3.5-5.5 Globulin, Total 3.3 g/dL 1.5-4.5 A/G Ratio 1.5 1.2-2.2 Bilirubin, Total <0.2 mg/dL 0.0-1.2 Alkaline Phosphatase, S 94 IU/L 39-117 AST (SGOT) 21 IU/L 0-40 ALT (SGPT) 18 IU/L 0-44 CD4/CD8 Ratio Profile [id number] - 09/13/18 1 0:39 WBC 10.9 x10E3/uL 3.4-10.8 RBC 4.85 x10E6/uL 4.14-5.80 Hemoglobin 13.0 g/dL 13.0-17.7 Hematocrit 40.2 % 37.5-51.0 MCV 83 fL 79-97 MCH 26.8 pg 26.6-33.0 MCHC 32.3 g/dL 31.5-35.7 RDW 12.3 % 11.6-14.4 Platelets 402 x10E3/uL 150-450 Neutrophils 73 % Not Estab. Lymphs 15 % Not Estab. Monocytes 8 % Not Estab. Eos 3 % Not Estab. Basos 1 % Not Estab. Immature Cells [employer] NRG Neutrophils (Absolute) 8.0 x10E3/uL 1.4- 7.0 Lymphs (Absolute) 1.6 x10E3/uL 0.7-3.1 Monocytes(Absolute) 0.8 x10E3/uL 0.1-0.9 Eos (Absolute) 0.3 x10E3/uL 0.0-0.4 Baso (Absolute) 0.1 x10E3/uL 0.0-0.2 Immature Granulocytes 0 % Not Esta b. Immature Grans (Abs) 0.0 x10E3/uL 0.0-0. 1 NRBC [employer] Hematology Comments: [employer] NRG Absolute CD 4 [place] 362 /uL [phone] % CD 4 Pos. Lymph. 22.6 % 30.8-58.5 Abs. CD 8 Suppressor 749 /uL 109-897 % CD 8 Pos. Lymph. 46.8 % 12.0-35.5 CD4/CD8 Ratio 0.48 0.92-3.72 Metabolic Panel (14), Comprehensive ([facility] ) [id number] - 01/10/19 10:44 Glucose, Serum 85 mg/dL 65-99 BUN 22 mg/dL 6-24 Creatinine, Serum 1.14 mg/dL 0.76-1.27 eGFR If NonAfricn Am 80 mL/min/1.73 >59 eGFR If Africn Am 92 mL/min/1.73 >59 BUN/Creatinine Ratio 19 9-20 Sodium, Serum 137 mmol/L 134-144 Potassium, Serum 5.0 mmol/L 3.5-5.2 Chloride, Serum 99 mmol/L 96-106 Carbon Dioxide, Total 22 mmol/L 20-29 Calcium, Serum 10.8 mg/dL 8.7-10.2 Protein, Total, Serum 8.2 g/dL 6.0-8.5 Albumin, Serum 5.4 g/dL 3.5-5.5 Globulin, Total 2.8 g/dL 1.5-4.5 A/G Ratio 1.9 1.2-2.2 Bilirubin, Total 0.4 mg/dL 0.0-1.2 Alkaline Phosphatase, S 72 IU/L 39-117 AST (SGOT) 25 IU/L 0-40 ALT (SGPT) 19 IU/L 0-44 CD4/CD8 Ratio Profile [id number] - 01/10/19 1 0:44 WBC 8.7 x10E3/uL 3.4-10.8 RBC 4.82 x10E6/uL 4.14-5.80 Hemoglobin 13.8 g/dL 13.0-17.7 Hematocrit 40.9 % 37.5-51.0 MCV 85 fL 79-97 MCH 28.6 pg 26.6-33.0 MCHC 33.7 g/dL 31.5-35.7 RDW 14.7 % 11.6-14.4 Platelets 349 x10E3/uL 150-450 Neutrophils 68 % Not Estab. Lymphs 18 % Not Estab. Monocytes 9 % Not Estab. Eos 4 % Not Estab. Basos 1 % Not Estab. Immature Cells [employer]G Neutrophils (Absolute) 6.0 x10E3/uL 1.4- 7.0 Lymphs (Absolute) 1.5 x10E3/uL 0.7-3.1 Monocytes(Absolute) 0.8 x10E3/uL 0.1-0.9 Eos (Absolute) 0.3 x10E3/uL 0.0-0.4 Baso (Absolute) 0.1 x10E3/uL 0.0-0.2 Immature Granulocytes 0 % Not Esta b. Immature Grans (Abs) 0.0 x10E3/uL 0.0-0. 1 NRBC [employer] Hematology Comments: [employer] NRG Absolute CD 4 [place] 312 /uL [phone] % CD 4 Pos. Lymph. 20.8 % 30.8-58.5 Abs. CD 8 Suppressor 639 /uL 109-897 % CD 8 Pos. Lymph. 42.6 % 12.0-35.5 CD4/CD8 Ratio 0.49 0.92-3.72 Rapid Plasma Reagin (RPR), Test w/ Refle x to Quant RPR/Confirm Treponema pallidum Antibodies [id number] - 04/11/19 11:10 RPR Reactive Non Reactive RPR, Quant. 1:1 NonRea<1:1 Treponema pallidum Antibodies Reactive Non Reactive Metabolic Panel (14), Comprehensive ([facility] ) [id number] - 04/11/19 11:10 Glucose, Serum 77 mg/dL 65-99 BUN 17 mg/dL 6-24 Creatinine, Serum 1.03 mg/dL 0.76-1.27 eGFR If NonAfricn Am 90 mL/min/1.73 >59 eGFR If Africn Am 105 mL/min/1.73 >5 9 BUN/Creatinine Ratio 17 9-20 Sodium, Serum 140 mmol/L 134-144 Potassium, Serum 4.7 mmol/L 3.5-5.2 Chloride, Serum 102 mmol/L 96-106 Carbon Dioxide, Total 25 mmol/L 20-29 Calcium, Serum 9.5 mg/dL 8.7-10.2 Protein, Total, Serum 7.0 g/dL 6.0-8.5 Albumin, Serum 4.7 g/dL 4.0-5.0 Globulin, Total 2.3 g/dL 1.5-4.5 A/G Ratio 2.0 1.2-2.2 Bilirubin, Total 0.4 mg/dL 0.0-1.2 Alkaline Phosphatase, S 55 IU/L 39-117 AST (SGOT) 20 IU/L 0-40 ALT (SGPT) 14 IU/L 0-44 CD4/CD8 Ratio Profile [id number] - 04/11/19 1 1:10 WBC 6.4 x10E3/uL 3.4-10.8 RBC 4.37 x10E6/uL 4.14-5.80 Hemoglobin 12.6 g/dL 13.0-17.7 Hematocrit 38.8 % 37.5-51.0 MCV 89 fL 79-97 MCH 28.8 pg 26.6-33.0 MCHC 32.5 g/dL 31.5-35.7 RDW 14.9 % 11.6-15.4 Platelets 262 x10E3/uL 150-450 Neutrophils 62 % Not Estab. Lymphs 25 % Not Estab. Monocytes 8 % Not Estab. Eos 4 % Not Estab. Basos 1 % Not Estab. Immature Cells [employer]G Neutrophils (Absolute) 4.0 x10E3/uL 1.4- 7.0 Lymphs (Absolute) 1.6 x10E3/uL 0.7-3.1 Monocytes(Absolute) 0.5 x10E3/uL 0.1-0.9 Eos (Absolute) 0.2 x10E3/uL 0.0-0.4 Baso (Absolute) 0.1 x10E3/uL 0.0-0.2 Immature Granulocytes 0 % Not Esta b. Immature Grans (Abs) 0.0 x10E3/uL 0.0-0. 1 NRBC [employer] NRG Hematology Comments: [employer] NRG Absolute CD 4 [place] 326 /uL [phone] % CD 4 Pos. Lymph. 20.4 % 30.8-58.5 Abs. CD 8 Suppressor 674 /uL 109-897 % CD 8 Pos. Lymph. 42.1 % 12.0-35.5 CD4/CD8 Ratio 0.48 0.92-3.72 Encounters ACCT No. Visit Date/Time Discharge Status Pt. Type Provider Facility Loc./Unit Complaint [id number] 11/30/2015 18:05:00 Document Registration [id number] 06/07/2018 08:40:00 06/07/2018 23:59: 59 CLS Outpatient [facility] [facility] [id number] 05/09/2018 16:40:00 Document Registration [id number] 02/05/2016 13:05:00 Document Registration [id number] 03/09/2018 11:46:00 019 13:25:00 DIS Emergency SHILPA DESOUZA [facility] ER L LEG INJ [id number] 05/29/2016 10:14:00 017 14:00:00 DIS Outpatient RODDY STEWART MD [facility] ENDO CHRONIC DIARRHEA [id number] 05/25/2016 05:41:00 017 12:48:00 DIS Outpatient RODDY STEWART MD [facility] PREOP CHRONIC DIARRHEA [id number] 04/14/2016 00:09:00 017 23:59:59 CLS [facility] [place] [facility] [id number] 01/17/2016 08:10:00 017 00:01:00 DIS Outpatient CAM [place] MD [facility] SDC ANEMIA [id number] 09/13/2018 08:30:00 09/13/2018 23:59: 59 CLS Outpatient Shana Rodriguez [facility] [id number] 04/11/2019 11:30:00 Document Registration [id number] 01/10/2019 08:30:00 Document Registration [id number] 09/13/2018 08:30:00 Document Registration [id number] 02/08/2018 08:15:00 Document Registration [id number] 11/30/2017 08:30:00 Document Registration [id number] 09/21/2017 08:15:00 Document Registration [id number] 06/15/2017 08:15:00 Document Registration [id number] 01/05/2017 08:15:00 Document Registration [id number] 05/21/2013 14:17:00 05/21/2013 23:59: 59 CLS Outpatient LINDSEY WEISS MD [id number] 01/01/2013 14:14:00 01/01/2013 23:59: 59 CLS Outpatient LINDSEY WEISS MD [id number] 10/09/2012 12:54:00 10/09/2012 23:59: 59 CLS Outpatient LINDSEY WEISS MD [id number] 08/08/2012 09:06:00 Document Registration [id number] 02/03/2016 18:06:00 Document Registration [id number] 02/03/2016 13:06:00 Document Registration
[2019-07-04] MEDS ORDERED: HALOPERIDOL 5 MG/ML (HALDOL) AMP ONE ×2 (12:11→12:12)
[2019-07-04] MEDS ORDERED: HALOPERIDOL 5 MG/ML (HALDOL) AMP IM ONE (12:15)
[2019-07-04 13:02] LABS: BASOPHILS # (AUTO) 0.1 10^3/uL (0.0-0.1); BASOPHILS % (AUTO) 1 % (0-10); EOSINOPHILS # (AUTO) 0.1 10^3/uL (0.0-0.3); EOSINOPHILS % (AUTO) 1 % (0-10); HEMATOCRIT 46 % (40-54); HEMOGLOBIN 14.6 G/DL (13.3-17.7); LYMPHOCYTES # (AUTO) 1.4 X 10^3 (1.0-4.0); LYMPHOCYTES % (AUTO) 9 % (12-44); MEAN CORPUSCULAR HEMOGLOBIN 29 PG (25-34); MEAN CORPUSCULAR HGB CONC 32 G/DL (32-36); MEAN CORPUSCULAR VOLUME 90 FL (80-99); MEAN PLATELET VOLUME 11.6 FL (7.4-10.4); MONOCYTES # (AUTO) 1.2 X 10^3 (0.0-1.0); MONOCYTES % (AUTO) 8 % (0-12); NEUTROPHILS # (AUTO) 12.8 X 10^3 (1.8-7.8); NEUTROPHILS % (AUTO) 82 % (42-75); PLATELET COUNT 281 10^3/uL (130-400); RED CELL DISTRIBUTION WIDTH 15.3 % (10.0-14.5); WHITE BLOOD COUNT 15.6 10^3/uL (4.3-11.0)
[2019-07-04 13:21] LABS: SODIUM 140 MMOL/L (135-145)
[2019-07-04 13:22] LABS: ACETAMINOPHEN < 10 UG/ML (10-30); ALANINE AMINOTRANSFERASE 24 U/L (0-55); ALBUMIN 5.4 GM/DL (3.2-4.5); ALKALINE PHOSPHATASE 71 U/L (40-136); BILIRUBIN,TOTAL 0.4 MG/DL (0.1-1.0); BUN/CREATININE RATIO 18; CALCIUM 11.3 MG/DL (8.5-10.1); CARBON DIOXIDE 19 MMOL/L (21-32); CHLORIDE 96 MMOL/L (98-107); CREATININE SERUM 1.73 MG/DL (0.60-1.30); GFR ESTIMATED 44; GLUCOSE 130 MG/DL (70-105); SALICYLATE < 5.0 MG/DL (5.0-20.0); TOTAL PROTEIN 8.7 GM/DL (6.4-8.2)
[2019-07-04 13:55] LABS: AMPHETAMINE SCREEN, URINE NEGATIVE (NEGATIVE); BARBITURATE SCREEN URINE NEGATIVE (NEGATIVE); BENZODIAZEPINES SCREEN URINE NEGATIVE (NEGATIVE); CANNABINOID SCREEN, URINE POSITIVE (NEGATIVE); COCAINE SCREEN URINE NEGATIVE (NEGATIVE); METHADONE STAT NEGATIVE (NEGATIVE); METHAMPHETAMINE SCREEN URINE S NEGATIVE (NEGATIVE); OPIATE SCREEN URINE NEGATIVE (NEGATIVE); OXYCODONE STAT POSITIVE (NEGATIVE); PROPOXYPHENE STAT NEGATIVE (NEGATIVE); TRICYCLIC ANTIDEPRESSANTS SCRE NEGATIVE (NEGATIVE)
[2019-07-04 14:29] LABS: ANISOCYTOSIS SLIGHT; BAND NEUTROPHILS 1 %; BASOPHILS % (MANUAL) 0 %; EOSINOPHILS % (MANUAL) 0 %; LYMPHOCYTES % (MANUAL) 8 %; MONOCYTES % (MANUAL) 4 %; NEUTROPHILS % (MANUAL) 87 %
[2019-07-04 14:50] VITALS: BP 117/68
== END 2019-07-04 14:50 ==
LOC: EDUNIT# 11:42 → ER FS 11:44
DX: F16.929 Hallucinogen use, unspecified with intoxication, unspecified (principal); J45.909 Unspecified asthma, uncomplicated; D64.9 Anemia, unspecified; F41.9 Anxiety disorder, unspecified; Z88.0 Allergy status to penicillin; Z88.8 Allergy status to other drugs, medicaments and biological substances; Z21 Asymptomatic human immunodeficiency virus [HIV] infection status
CPT/HCPCS: 36415; 80053; 80306; 80320; 80329; 85007; 85027; 99284